=== PATIENT | female | born 1945 | race Caucasian/White ===

== ENCOUNTER → 2016-12-22 | Outpatient (CLI) | payer MEDICARE, BC ==
[2016-12-22 20:21] LABS: Hemoglobin A1C 7.3 % (4.2-6.1)
== END ==
LOC: LABWHC1 13:44
PROVIDERS: ATTEND Internal Medicine Endocrinology, Diabetes & Metabolism
DX: E03.9 Hypothyroidism, unspecified (principal); E11.65 Type 2 diabetes mellitus with hyperglycemia; E78.5 Hyperlipidemia, unspecified; E55.9 Vitamin D deficiency, unspecified; M81.8 Other osteoporosis without current pathological fracture
CPT/HCPCS: 36415; 82043; 82306; 83036; 84439; 84443

== ENCOUNTER → 2017-05-05 | Outpatient (CLI) | payer MEDICARE, BC ==
--- NOTE | 2017-05-05 15:27 | NM ---
EXAMINATION TYPE: NM DatScan Brain SPECT DATE OF EXAM: 05/05/2017 COMPARISON: NONE HISTORY: Parkinson's disease TECHNIQUE: 10 drops of Lugol's solution was administered 1 hour prior to injection as a thyroid bloc el agent. After the administration of 4.5 mCi I-123 Ioflupane DaTscan. Images obtained [address] injection. SPECT images of the brain were acquired with axial and coronal reconstructions. FINDINGS: The axial SPECT images demonstrate increased background activity and reduced activity withi n the bilateral striata greater on the right. IMPRESSION: Abnormal appearance highly suggestive of idiopathic Parkinson's disease or Parkinsonian s yndrome.
== END | disposition home or self-care (01) ==
LOC: RADNMMAIN 09:45
PROVIDERS: ATTEND Psychiatry & Neurology Neurology
DX: R90.89 Other abnormal findings on diagnostic imaging of central nervous system (principal); G20 Parkinson's disease
CPT/HCPCS: 78607; A9584

== ENCOUNTER 2018-07-01 14:06 | Emergency (ER) | payer MEDICARE, BC ==
[2018-07-01 14:15] VITALS: PULSE 64; TEMP 97.7
[2018-07-01] MEDS ORDERED: LIDOCAINE 1% INJ 10MG/ML (20 ML MDV) SQ ONE (15:09)
[2018-07-01] MEDS ORDERED: DIPH,PERTUS(ACELL)TETVAC-LF 0.5 ML VIAL IM ONE (15:21)
--- NOTE | 2018-07-01 15:47 | CT ---
EXAMINATION TYPE: CT brain deb gonzalez DATE OF EXAM: 07/01/2018 COMPARISON: 07/24/2016 HISTORY: Fall today. CT DLP: 1088.[address] of the brain was performed. The ventricles, basal cisterns and sulci overlying the cerebral convexities demonstrate mild enlargem ent. There is no evidence for intracranial hemorrhage or sulcal effacement. There is decreased attenuatio n about the periventricular white matter and deep white matter of both cerebral hemispheres, compatib le with chronic small vessel ischemia. No mass effects are seen. If symptoms persist consider MRI. Osseous calvarium is intact. IMPRESSION: 1. Age related atrophic and chronic small vessel ischemic change without acute intracranial process seen at this time. CT Cervical Spine: Unenhanced CT of the cervical spine was performed with bone and soft tissue window settings submitted . Coronal and sagittal reconstruction is obtained. There is normal alignment and prevertebral soft tissues. No evidence for acute cervical fracture . Scattered degenerative disc disease and spondylosis. Biapical scarring. Pleural effusions partially imaged. IMPRESSION: 1. No evidence for acute fracture or subluxation of the cervical spine.
--- NOTE | 2018-07-01 16:29 | XR ---
EXAMINATION TYPE: XR shoulder complete RT, XR humerus RT DATE OF EXAM: 07/01/2018 CLINICAL HISTORY: pain TECHNIQUE: Three views of the right shoulder and 2 views of the right humerus are submitted. Are obt ained. COMPARISON: 08/13/2015 FINDINGS: There is a chronic fracture noted to involve the right humeral neck with cranial migration of the distal fracture component and the rotatory component of the humeral head. In addition there is healed fracture involving the middle one third of the right humeral diaphysis. No acute fractures ar e present at this time. There is evidence of AC joint arthropathy. IMPRESSION: 1. Chronic fractures of the humeral neck/head as well as the middle one third of the diaphysis. Defin ite acute fracture is not believed to be present.
--- NOTE | 2018-07-01 16:31 | XR ---
EXAMINATION TYPE: XR tibia fibula RT DATE OF EXAM: 07/01/2018 CLINICAL HISTORY: pain TECHNIQUE: AP and lateral images of the right tibia and fibula are obtained. COMPARISON: None. FINDINGS: There is no acute fracture/dislocation evident. The joint spaces appear within normal frausto its. Soft tissue laceration noted laterally without evidence for radiopaque foreign body. IMPRESSION: There is no acute fracture or dislocation seen. ICD 10 NO FRACTURE, INITIAL EVALUATION
--- NOTE | 2018-07-01 16:36 | ED ---
Wound/Laceration HPI - General Chief Complaint: Wound/Laceration Stated Complaint: Fall Time Seen by Provider: 07/01/18 14:27 Source: patient Mode of arrival: EMS Limitations: no limitations - History of Present Illness Initial Comments: 73-year-old female past medical history of atrial fibrillation on eliquis, hypertension, Parkinson's presenting today for chief complaint of fall. Patient states that she often falls due to lack of balance from Parkinsons, today she stated she went to stand from seated, lost balance with first step falling forward. Pt denies any dizziness, chest pain, palpitations, prior to falling. Her son who wittnessed the fall stated she fell forward with right arm tucked under her body onto the carpeting, he states she doesn't think she hit her head but she could have on the carpeting. Pt is also unsure if she hit her head, denies LOC. Pt hit her right gao on the coffee table when falling lacerating her skin. Pt admits to some right shoulder pain, as well as at location of laceration. Pt was able to weight bear following accident and was brought to ER via EMS. Pt denies back pain, chest pain, shortness of breath, neck pain, headache, dizziness, visual changes, muscle weakness, hip/ankle/knee/ left UE pain. Pt did state that she had b/l shoulder/arm fractures from recent previous fall. Upon arrival to the ER pt appears well. C-collar in place, pt placed on telemetry. VS within acceptable limits. - Related Data Home Medications Medication Instructions Recorded Confirmed Metoprolol Tartrate [Lopressor] 50 mg PO BID 08/18/15 07/01/18 Carbidopa-Levodopa 25-100 mg 1 tab PO TID 01/15/16 07/01/18 [Sinemet 25-100 mg] Teriparatide [Forteo] 20 mcg SQ DAILY 03/04/17 07/01/18 Atorvastatin [Lipitor] 10 mg PO HS 04/28/18 07/01/18 Levothyroxine Sodium 137 mcg PO DAILY 04/28/18 07/01/18 Multivitamins, Thera [Multivitamin 1 tab PO DAILY 04/28/18 07/01/18 (formulary)] Tolterodine ER [Detrol LA] 4 mg PO HS 04/28/18 07/01/18 ALPRAZolam [Xanax] 0.25 mg PO TID PRN 07/01/18 07/01/18 Ammonium Lactate Cream [Lac-Hydrin 1 applic TOPICAL BID 07/01/18 07/01/18 12% Cream] Insulin Aspart [NovoLOG See Protocol SQ DAILY 07/01/18 07/01/18 (formulary)] Melatonin 5 mg PO HS PRN 07/01/18 07/01/18 Temazepam [Restoril] 30 mg PO HS PRN 07/01/18 07/01/18 oxyCODONE-APAP 7.5-325MG [Percocet 1 tab PO DAILY PRN 07/01/18 07/01/18 7.5-325 mg] Previous Rx's Medication Instructions Recorded Clindamycin [Cleocin] 450 mg PO Q8H 7 Days #21 capsule 07/01/18 Allergies Allergy/AdvReac Type Severity Reaction Status Date / Time cefdinir Allergy Severe Swelling Verified 07/01/18 15:53 Cephalosporins Allergy Unknown Verified 07/01/18 15:53 doxycycline Allergy Nausea & Verified 07/01/18 15:53 Vomiting erythromycin base Allergy Nausea & Verified 07/01/18 15:53 Vomiting & Diarrhea/RASH Penicillins Allergy Rash/Hives Verified 07/01/18 15:53 azithromycin AdvReac Nausea & Verified 07/01/18 15:53 Vomiting codeine AdvReac Unknown Verified 07/01/18 15:53 hydrochlorothiazide AdvReac Nausea & Verified 07/01/18 15:53 [From Dyazide] Vomiting levofloxacin [From Levaquin] AdvReac Abdominal Verified 07/01/18 15:53 Pain moxifloxacin HCl AdvReac Unknown Verified 07/01/18 15:53 [From Avelox] sulfamethoxazole AdvReac Nausea & Verified 07/01/18 15:53 [From Bactrim] Vomiting & Diarrhea triamterene [From Dyazide] AdvReac Nausea & Verified 07/01/18 15:53 Vomiting trimethoprim [From Bactrim] AdvReac Unknown Verified 07/01/18 15:53 Review of Systems ROS Statement: Those systems with pertinent positive or pertinent negative responses have been documented in the HPI. ROS Other: All systems not noted in ROS Statement are negative. Constitutional: Denies: fever, chills, night sweats Eyes: Denies: eye pain, vision change ENT: Denies: ear pain, throat pain Respiratory: Denies: cough, dyspnea, wheezes, hemoptysis, stridor Cardiovascular: Denies: chest pain, palpitations, dyspnea on exertion Gastrointestinal: Denies: abdominal pain, nausea, vomiting, diarrhea, constipation, hematemesis Genitourinary: Denies: urgency, dysuria, frequency, hematuria Musculoskeletal: Denies: back pain, joint swelling, arthralgia Skin: Reports: as per HPI (9cm laceration right anterior gao), lesions Neurological: Denies: headache, weakness, numbness, paresthesias, confusion, abnormal gait Past Medical History Past Medical History: Atrial Fibrillation, Asthma, Cancer, Heart Failure, COPD, CVA/TIA, Diabetes Mellitus, GERD/Reflux, Hypertension, Renal Disease, Respiratory Disorder, Thyroid Disorder Additional Past Medical History / Comment(s): HX OF CANCER OF LIP. HX SARCOIDOSIS, insulin pump, "stroke left eye". PNEUMONIA. History of Any Multi-Drug Resistant Organisms: MRSA Date of last positivie culture/infection: UNKNOWN. MDRO Source:: URIN Past Surgical History: Appendectomy, Breast Surgery, Section, Cholecystectomy, Hysterectomy, Orthopedic Surgery Additional Past Surgical History / Comment(s): tongue left side biopsy aug 2014 , epidural injections. #right shoulder&and right elbow. Past Anesthesia/Blood Transfusion Reactions: No Reported Reaction Additional Past Anesthesia/Blood Transfusion Reaction / Comment(s): CLAUSTERPHOBIA Past Psychological History: Anxiety Smoking Status: Never smoker Past Alcohol Use History: None Reported Past Drug Use History: None Reported - Past Family History Father Family Medical History: Cancer, Prostate Disorder Additional Family Medical History / Comment(s): PROSTATE CA, HERNIA SX BACK SX Mother Family Medical History: Cancer Additional Family Medical History / Comment(s): Mother is . Mother had lung cancer. She was a smoker. General Exam - General Exam Comments Initial Comments: General: The patient is awake and alert, in no distress, and does not appear acutely ill. Eye: +3 pupils are equal, round and reactive to light, extra-ocular movements are intact. No nystagmus. There is normal conjunctiva bilaterally. No signs of icterus. Ears, nose, mouth and throat: There are moist mucous membranes and no oral lesions. Neck: The neck is supple, there is no tenderness or JVD. No midline or paravertebral tenderness to palpation of the cervical spine. Patient is able to fully range the C-spine with flexion, extension, lateral flexion and rotation. Cardiovascular: There is a regular rate and rhythm. No murmur, rub or gallop is appreciated. Respiratory: Lungs are clear to auscultation, respirations are non-labored, breath sounds are equal. No wheezes, stridor, rales, or rhonchi. Breath sounds audible in all lung douglas. Gastrointestinal: Soft, non-distended, non-tender abdomen without masses or organomegaly noted. There is no rebound or guarding present. Bowel sounds are unremarkable. Musculoskeletal: No pain to palpation of the sternum or scapula. No pain to percussion of the shoulders. Patient does admit to some tenderness over the humerus stating that these are her old fractures. Normal ROM at the shoulder, elbows and wrists b/l, no tenderness. Strength 5/5 of the UE and LE equally b/ l. Sensation intact of the UE and LE equally b/l. Radial pulses equal bilaterally 2+. Neurological: A&O x 3. CN II-XII intact, There are no obvious motor or sensory deficits. Coordination appears grossly intact. Speech is normal. Skin: Skin is warm and dry and no rashes. 9cm laceration of the right anterior gao with skin tear and ecchymosis. Psychiatric: Cooperative, appropriate mood & affect, normal judgment. Limitations: no limitations Course Vital Signs 07/01/18 07/01/18 07/01/18 14:09 15:00 15:30 Temperature 97.7 F Pulse Rate 64 64 64 Respiratory 16 18 14 Rate Blood Pressure 170/71 161/72 169/87 O2 Sat by Pulse 95 97 96 Oximetry 07/01/18 07/01/18 07/01/18 16:00 16:30 18:00 Temperature Pulse Rate 63 64 Respiratory 10 L 10 L Rate Blood Pressure 191/83 173/78 169/114 O2 Sat by Pulse 85 L 95 Oximetry Procedures - Laceration Laceration #1 Consent Obtained: verbal consent Time Out Performed: Yes Indication: laceration Site: lower extremity (right anterior gao) Size (cm): 9 Description: irregular (with skin tear), clean Depth: simple, single layer Anesthetic Used: lidocaine 1% Anesthesia Technique: local infiltration Amount (mls): 12 Pre-repair: wound explored, irrigated extensively, deep structures intact Type of Sutures: nylon Size of Sutures: 4-0 Number of Sutures: 13 Technique: simple, interrupted Complications: bleeding (minor bleeding) Patient Tolerated Procedure: well Additional Comments: Pt skin very thin, tearing was complication of procedure. Wound edges approximated as closely as possible. There is some tension on the skin of the area. A pressure dressing was applied following wound repair to obtain hemestasis. Medical Decision Making - Medical Decision Making 73yo female with cc of mechanical fall. CT (-) Imaging of right UE (-) revealed no acute fractures. Pt able to fully weight bear denying pain with ROM of the LE /back. Laceration repaired, experienced complication of skin tearing and mild bleeding. Pt tolerated procedure well. Given pt history of DM pt was started on antibiotics for infection ppx. Pt was educated on the importance of f/u for wound check as there is risk of delayed wound healing with history of DM/and venous insufficiency. Pt verbalized understanding. Return parameters discussed in detail patient. Case discussed with Dr. Rivera who at this time feels pt is stable for d/c with primary care f/u and f/u in 7-10 days for suture removal. Signs and symptoms of infection discussed in detail. Patient discharged in stable condition. Disposition Clinical Impression: Laceration of right lower leg without complication, Fall Disposition: HOME SELF-CARE Condition: Good Instructions: Care For Your Stitches (ED), Laceration (ED), Fall Prevention (ED ) Additional Instructions: Please use home medications as discussed. Please follow-up with family doctor in the next 2 days. Please follow up here for suture removal in 7-10 days. Please return to emergency room if the symptoms increase or worsen or for any other concerns. Prescriptions: Clindamycin [Cleocin] 450 mg PO Q8H 7 Days #21 capsule Is patient prescribed a controlled substance at d/c from ED?: No Referrals: Maximus Odonnell III, MD [Primary Care Provider] - 1-2 days Time of Disposition: 18:00
[2018-07-01 18:24] VITALS: BP 169/114; RESP 10
--- NOTE | 2018-07-04 12:29 | XR ---
EXAMINATION TYPE: XR chest 2V DATE OF EXAM: 07/01/2018 COMPARISON: Prior chest x-ray 05/03/2018 HISTORY: Pain, trauma TECHNIQUE: Frontal and lateral views of the chest are obtained. FINDINGS: The heart size is stable. Interstitium is increased, perihilar vascular indistinctness is noted. Old trauma present to the proximal humeri. Arthropathy changes are present. There is no pneumo thorax or pleural effusion. There are overlying cardiac leads. Lung volumes are low. IMPRESSION: Correlate for possible pulmonary venous hypertension and interstitial edema, follow-up r ecommended.
== END 2018-07-01 18:25 | disposition home or self-care (01) ==
LOC: EC 14:06
DX: S81.811A Laceration without foreign body, right lower leg, initial encounter (principal); M25.511 Pain in right shoulder; R29.6 Repeated falls; I48.91 Unspecified atrial fibrillation; E11.9 Type 2 diabetes mellitus without complications; E07.9 Disorder of thyroid, unspecified; I11.0 Hypertensive heart disease with heart failure; I50.9 Heart failure, unspecified; G20 Parkinson's disease; Z88.0 Allergy status to penicillin; Z88.1 Allergy status to other antibiotic agents; Z88.2 Allergy status to sulfonamides; Z88.5 Allergy status to narcotic agent; Z88.8 Allergy status to other drugs, medicaments and biological substances; Z79.01 Long term (current) use of anticoagulants; Z79.4 Long term (current) use of insulin; Z79.899 Other long term (current) drug therapy; Z87.81 Personal history of (healed) traumatic fracture; Z98.890 Other specified postprocedural states; Z53.20 Procedure and treatment not carried out because of patient's decision for unspecified reasons; W01.190A Fall on same level from slipping, tripping and stumbling with subsequent striking against furniture, initial encounter; Y93.89 Activity, other specified; Y92.009 Unspecified place in unspecified non-institutional (private) residence as the place of occurrence of the external cause
CPT/HCPCS: 73030; 73060; 73590; 71046; 72125; 70450; 99284; 12004; J2001

== ENCOUNTER 2018-07-05 22:49 | Emergency (ER) | payer MEDICARE, BC ==
[2018-07-05] MEDS ORDERED: SODIUM CHLORIDE 0.9% 1,000 ML IV ONE (23:05)
--- NOTE | 2018-07-05 23:05 | ED ---
Altered Mental Status HPI - General Chief Complaint: Altered Mental Status Stated Complaint: Altered Mental Status Time Seen by Provider: 07/05/18 23:04 Source: patient, EMS Mode of arrival: EMS Limitations: altered mental status - History of Present Illness Initial Comments: Jm is a 73-year-old female with past medical history documented below who is brought to the ED today via EMS for evaluation of transient episode of confusion. Patient reports that she is feeling well and she's not certain why she came here. States that she got ready for bed, she took one of her Percocet and then she was talking to her , he was concerned that she was confused so he called 911. arrived at bedside, he states that the patient was in her usual state of health throughout the day. He states that this evening she was getting ready for bed. She wanted the restroom which is her usual. She was then sitting at the table and he noted that she was very sleepy, she appeared to be nodding off, when he tried to talk to her she seemed confused. He reports she' s had episodes like this in the past been in the past they've lasted days to weeks. He reports he then went to the restroom to see if he could find if the patient IV medications. He can't empty Percocet bottle. He is uncertain when she was prescribed these her how many she took tonight. He then decided to call 911 due to concern of ingestion. Upon arrival the patient is awake, alert, oriented, she states that she did in fact take her normal anxiety medications as well as one Percocet. She was prescribed Percocet approximately a month ago. There are her Percocet. She reports she took only one. She states that she took a due to pain in her leg from a laceration she obtained on Wednesday. Patient denies any additional complaints. - Related Data Home Medications Medication Instructions Recorded Confirmed Metoprolol Tartrate [Lopressor] 50 mg PO BID 08/18/15 07/05/18 Carbidopa-Levodopa 25-100 mg 1 tab PO TID 01/15/16 07/05/18 [Sinemet 25-100 mg] Teriparatide [Forteo] 20 mcg SQ DAILY 03/04/17 07/05/18 Atorvastatin [Lipitor] 10 mg PO HS 04/28/18 07/05/18 Levothyroxine Sodium 137 mcg PO DAILY 04/28/18 07/05/18 Multivitamins, Thera [Multivitamin 1 tab PO DAILY 04/28/18 07/05/18 (formulary)] Tolterodine ER [Detrol LA] 4 mg PO HS 04/28/18 07/05/18 ALPRAZolam [Xanax] 0.25 mg PO TID PRN 07/01/18 07/05/18 Ammonium Lactate Cream [Lac-Hydrin 1 applic TOPICAL BID 07/01/18 07/05/18 12% Cream] Insulin Aspart [NovoLOG See Protocol SQ DAILY 07/01/18 07/05/18 (formulary)] Melatonin 5 mg PO HS PRN 07/01/18 07/05/18 Temazepam [Restoril] 30 mg PO HS PRN 07/01/18 07/05/18 oxyCODONE-APAP 7.5-325MG [Percocet 1 tab PO DAILY PRN 07/01/18 07/05/18 7.5-325 mg] Previous Rx's Medication Instructions Recorded Clindamycin [Cleocin] 450 mg PO Q8H 7 Days #21 capsule 07/01/18 Allergies Allergy/AdvReac Type Severity Reaction Status Date / Time cefdinir Allergy Severe Swelling Verified 07/05/18 23:17 Cephalosporins Allergy Unknown Verified 07/05/18 23:17 doxycycline Allergy Nausea & Verified 07/05/18 23:17 Vomiting erythromycin base Allergy Nausea & Verified 07/05/18 23:17 Vomiting & Diarrhea/RASH Penicillins Allergy Rash/Hives Verified 07/05/18 23:17 azithromycin AdvReac Nausea & Verified 07/05/18 23:17 Vomiting codeine AdvReac Unknown Verified 07/05/18 23:17 hydrochlorothiazide AdvReac Nausea & Verified 07/05/18 23:17 [From Dyazide] Vomiting levofloxacin [From Levaquin] AdvReac Abdominal Verified 07/05/18 23:17 Pain moxifloxacin HCl AdvReac Unknown Verified 07/05/18 23:17 [From Avelox] sulfamethoxazole AdvReac Nausea & Verified 07/05/18 23:17 [From Bactrim] Vomiting & Diarrhea triamterene [From Dyazide] AdvReac Nausea & Verified 07/05/18 23:17 Vomiting trimethoprim [From Bactrim] AdvReac Unknown Verified 07/05/18 23:17 Review of Systems ROS Statement: Those systems with pertinent positive or pertinent negative responses have been documented in the HPI. ROS Other: All systems not noted in ROS Statement are negative. Past Medical History Past Medical History: Atrial Fibrillation, Asthma, Cancer, Heart Failure, COPD, CVA/TIA, Diabetes Mellitus, GERD/Reflux, Hypertension, Renal Disease, Respiratory Disorder, Thyroid Disorder Additional Past Medical History / Comment(s): HX OF CANCER OF LIP. HX SARCOIDOSIS, insulin pump, "stroke left eye". PNEUMONIA. History of Any Multi-Drug Resistant Organisms: MRSA Date of last positivie culture/infection: UNKNOWN. MDRO Source:: URIN Past Surgical History: Appendectomy, Breast Surgery, Section, Cholecystectomy, Hysterectomy, Orthopedic Surgery Additional Past Surgical History / Comment(s): tongue left side biopsy aug 2014 , epidural injections. #right shoulder&and right elbow. Past Anesthesia/Blood Transfusion Reactions: No Reported Reaction Additional Past Anesthesia/Blood Transfusion Reaction / Comment(s): CLAUSTERPHOBIA Past Psychological History: Anxiety Smoking Status: Never smoker Past Alcohol Use History: None Reported Past Drug Use History: None Reported - Past Family History Father Family Medical History: Cancer, Prostate Disorder Additional Family Medical History / Comment(s): PROSTATE CA, HERNIA SX BACK SX Mother Family Medical History: Cancer Additional Family Medical History / Comment(s): Mother is . Mother had lung cancer. She was a smoker. General Exam - General Exam Comments Initial Comments: Physical Exam GENERAL: Patient is well-developed and well-nourished. Patient is nontoxic and well-hydrated and is in no distress. HENT: Normocephalic, Atraumatic. EYES: PERRL, EOMI PULMONARY: Unlabored respirations. No audible rales rhonchi or wheezing was noted. CARDIOVASCULAR: There is a regular rate and rhythm without any murmurs gallops or rubs. ABDOMEN: Soft and nontender with normal bowel sounds. SKIN: There is a large skin tear on the right lower extremity, this is been repaired with sutures, there is a loose approximation of the skin, no signs of infection. : Deferred NEUROLOGIC: Patient is alert and oriented x3. Moving all extremities spontaneously MUSCULOSKELETAL: Edema of the bilateral lower extremities, PSYCHIATRIC: Normal psychiatric evaluation. Limitations: no limitations Limitations: altered mental status Course Vital Signs 07/05/18 22:52 Temperature 98.4 F Pulse Rate 67 Respiratory 18 Rate Blood Pressure 129/59 O2 Sat by Pulse 94 L Oximetry Medical Decision Making - Medical Decision Making The patient was seen and evaluated, history was obtained from the patient, patient's , EMS Patient both report concern for Percocet ingestion, patient reports she took only one but took along with her normal benzodiazepine medication. does admit that the patient is now much more awake alert and oriented. Reports that she is at her baseline upon arrival to the ER. The patient did not receive any Narcan in route to the hospital Labs and imaging were ordered, considering the Percocet does have Tylenol in the I will order a Tylenol level Labs at the patient's baseline, chronic anemia Acetaminophen level is 11, this indicates the patient did not ingest a significant amount of Percocet Patient has remained awake, alert, oriented though sleepy throughout her ED stay. She states she like to go home and go to bed as it is now 2 AM. Results were discussed with the patient and . I offered observation for further monitoring of the patient's condition versus discharge home. Patient would prefer discharge home. is in agreement with this. Current parameters were discussed, all questions pertaining to care were answered to the best of my ability and the patient was discharged home in stable condition. - Lab Data Result diagrams: 07/05/18 23:00 07/05/18 23:00 Lab Results 07/05/18 07/05/18 07/05/18 Range/Units 23:00 23:00 23:00 WBC 4.7 (3.8-10.6) k/uL RBC 2.89 L (3.80-5.40) m/uL Hgb 9.9 L (11.4-16.0) gm/dL Hct 29.8 L (34.0-46.0) % MCV 103.3 H (80.0-100.0) fL MCH 34.4 (25.0-35.0) pg MCHC 33.3 (31.0-37.0) g/dL RDW 13.7 (11.5-15.5) % Plt Count 141 L (150-450) k/uL Neutrophils % 74 % Lymphocytes % 15 % Monocytes % 6 % Eosinophils % 2 % Basophils % 0 % Neutrophils # 3.5 (1.3-7.7) k/uL Lymphocytes # 0.7 L (1.0-4.8) k/uL Monocytes # 0.3 (0-1.0) k/uL Eosinophils # 0.1 (0-0.7) k/uL Basophils # 0.0 (0-0.2) k/uL Macrocytosis Slight PT (9.0-12.0) sec INR (<1.2) APTT (22.0-30.0) sec Sodium 133 L (137-145) mmol/L Potassium 4.0 (3.5-5.1) mmol/L Chloride 100 (98-107) mmol/L Carbon Dioxide 30 (22-30) mmol/L Anion Gap 3 mmol/L BUN 13 (7-17) mg/dL Creatinine 0.51 L (0.52-1.04) mg/dL Est GFR (CKD-EPI)AfAm >90 (>60 ml/min/1.73 sqM) Est GFR (CKD-EPI)NonAf >90 (>60 ml/min/1.73 sqM) Glucose 149 H (74-99) mg/dL POC Glucose (mg/dL) (75-99) mg/dL POC Glu Food Aide ID Calcium 8.7 (8.4-10.2) mg/dL Total Bilirubin 0.9 (0.2-1.3) mg/dL AST 24 (14-36) U/L ALT 16 (9-52) U/L Alkaline Phosphatase 82 (38-126) U/L Total Creatine Kinase 21 L (30-135) U/L CK-MB (CK-2) 0.6 (0.0-2.4) ng/mL CK-MB (CK-2) Rel Index 2.9 Troponin I <0.012 (0.000-0.034) ng/mL Total Protein 5.4 L (6.3-8.2) g/dL Albumin 2.7 L (3.5-5.0) g/dL Salicylates <1.0 mg/dL Acetaminophen 11.9 ug/mL Serum Alcohol <10 mg/dL 07/05/18 07/05/18 Range/Units 23:00 23:13 WBC (3.8-10.6) k/uL RBC (3.80-5.40) m/uL Hgb (11.4-16.0) gm/dL Hct (34.0-46.0) % MCV (80.0-100.0) fL MCH (25.0-35.0) pg MCHC (31.0-37.0) g/dL RDW (11.5-15.5) % Plt Count (150-450) k/uL Neutrophils % % Lymphocytes % % Monocytes % % Eosinophils % % Basophils % % Neutrophils # (1.3-7.7) k/uL Lymphocytes # (1.0-4.8) k/uL Monocytes # (0-1.0) k/uL Eosinophils # (0-0.7) k/uL Basophils # (0-0.2) k/uL Macrocytosis PT 12.8 H (9.0-12.0) sec INR 1.4 H (<1.2) APTT 28.8 (22.0-30.0) sec Sodium (137-145) mmol/L Potassium (3.5-5.1) mmol/L Chloride (98-107) mmol/L Carbon Dioxide (22-30) mmol/L Anion Gap mmol/L BUN (7-17) mg/dL Creatinine (0.52-1.04) mg/dL Est GFR (CKD-EPI)AfAm (>60 ml/min/1.73 sqM) Est GFR (CKD-EPI)NonAf (>60 ml/min/1.73 sqM) Glucose (74-99) mg/dL POC Glucose (mg/dL) 181 H (75-99) mg/dL POC Glu Food Aide ID Dorothea Boyer Calcium (8.4-10.2) mg/dL Total Bilirubin (0.2-1.3) mg/dL AST (14-36) U/L ALT (9-52) U/L Alkaline Phosphatase (38-126) U/L Total Creatine Kinase (30-135) U/L CK-MB (CK-2) (0.0-2.4) ng/mL CK-MB (CK-2) Rel Index Troponin I (0.000-0.034) ng/mL Total Protein (6.3-8.2) g/dL Albumin (3.5-5.0) g/dL Salicylates mg/dL Acetaminophen ug/mL Serum Alcohol mg/dL - EKG Data EKG Comments: Rhythm is sinus, as noted be a bifascicular block, MS interval 186, QRS is 142, QTc is prolonged at 516. There are no acute ST elevations or depressions. When compared to EKG of April of this year there are no significant changes in morphology. Disposition Clinical Impression: Confusion Disposition: HOME SELF-CARE Condition: Good Instructions: Altered Mental Status (ED) Is patient prescribed a controlled substance at d/c from ED?: No Referrals: Maximus Odonnell III, MD [Primary Care Provider] - 1-2 days
[2018-07-05 23:15] LABS: Glucose,Whole Blood 181 mg/dL (75-99)
[2018-07-05 23:26] LABS: Basophils % (A) 0 %; Eosinophils # (A) 0.1 k/uL (0-0.7); Eosinophils % (A) 2 %; HCT 29.8 % (34.0-46.0); HGB 9.9 gm/dL (11.4-16.0); Lymphocytes # (A) 0.7 k/uL (1.0-4.8); Lymphocytes % (A) 15 %; MCH 34.4 pg (25.0-35.0); MCHC 33.3 g/dL (31.0-37.0); MCV 103.3 fL (80.0-100.0); Macrocytosis Slight; Mean Platelet Volume 7.3; Monocytes # (A) 0.3 k/uL (0-1.0); Monocytes % (A) 6 %; Neutrophils # (A) 3.5 k/uL (1.3-7.7); Neutrophils % (A) 74 %; Platelet Count 141 k/uL (150-450); RBC 2.89 m/uL (3.80-5.40); RDW 13.7 % (11.5-15.5); WBC 4.7 k/uL (3.8-10.6)
[2018-07-05 23:36] LABS: ALT 16 U/L (9-52); AST 24 U/L (14-36); Acetaminophen 11.9 ug/mL; Albumin 2.7 g/dL (3.5-5.0); Alcohol <10 mg/dL; Alkaline Phosphatase 82 U/L (38-126); Anion Gap 3 mmol/L; Blood Urea Nitrogen 13 mg/dL (7-17); Calcium 8.7 mg/dL (8.4-10.2); Carbon Dioxide 30 mmol/L (22-30); Chloride 100 mmol/L (98-107); Glucose 149 mg/dL (74-99); Salicylate <1.0 mg/dL; Sodium 133 mmol/L (137-145); Total Bilirubin 0.9 mg/dL (0.2-1.3); Total Protein 5.4 g/dL (6.3-8.2)
[2018-07-05 23:40] LABS: INR 1.4 (<1.2); Partial Thromboplastin Time 28.8 sec (22.0-30.0); Prothrombin Time 12.8 sec (9.0-12.0)
[2018-07-05 23:46] LABS: Creatine Kinase 21 U/L (30-135)
--- NOTE | 2018-07-05 23:54 | XR ---
EXAMINATION TYPE: XR chest 2V DATE OF EXAM: 07/05/2018 COMPARISON: 07/01/2018 HISTORY: Altered mental status TECHNIQUE: Frontal and lateral views of the chest are obtained. FINDINGS: There is diffuse pulmonary interstitial edema. Heart is enlarged. There is some blunting o f the costophrenic angles with fluid in the fissures. There are chest leads. Thoracic aorta is athero matous. IMPRESSION: Congestive heart failure. Pulmonary interstitial edema. Pleural effusions. There is prob ably also some pneumonia left lower lobe. Chest is slightly worse than last exam.
[2018-07-06] LABS: Creatine Kinase MB 0.6 ng/mL (0.0-2.4); Troponin I <0.012 ng/mL (0.000-0.034)
[2018-07-06 03:20] VITALS: BP 149/71; PULSE 64; RESP 17; TEMP 97.9
== END 2018-07-06 02:15 | disposition home or self-care (01) ==
LOC: EC 22:49
DX: R41.0 Disorientation, unspecified (principal); D64.9 Anemia, unspecified; I48.91 Unspecified atrial fibrillation; I11.0 Hypertensive heart disease with heart failure; I50.9 Heart failure, unspecified; E11.9 Type 2 diabetes mellitus without complications; E07.9 Disorder of thyroid, unspecified; F41.9 Anxiety disorder, unspecified; Z86.73 Personal history of transient ischemic attack (TIA), and cerebral infarction without residual deficits; Z86.14 Personal history of Methicillin resistant Staphylococcus aureus infection; Z85.819 Personal history of malignant neoplasm of unspecified site of lip, oral cavity, and pharynx; Z79.4 Long term (current) use of insulin; Z79.899 Other long term (current) drug therapy; Z88.0 Allergy status to penicillin; Z88.1 Allergy status to other antibiotic agents; Z88.2 Allergy status to sulfonamides; Z88.5 Allergy status to narcotic agent; Z88.8 Allergy status to other drugs, medicaments and biological substances
CPT/HCPCS: 36415; 93005; 80053; 82550; 82553; 84484; 85025; 85610; 85730; 83520 ×2; 71046; 99285; 96360; G0480; 80320

== ENCOUNTER 2018-08-09 01:40 | Inpatient (IN) | payer MEDICARE, BC ==
[2018-08-09] MEDS ORDERED: SODIUM CHLORIDE 0.9% 500 ML 500 ML IV STA (03:06)
[2018-08-09 03:28] LABS: Basophils % (A) 0 %; Eosinophils # (A) 0.1 k/uL (0-0.7); Eosinophils % (A) 1 %; HCT 35.6 % (34.0-46.0); HGB 12.2 gm/dL (11.4-16.0); Lymphocytes # (A) 0.9 k/uL (1.0-4.8); Lymphocytes % (A) 12 %; MCH 33.8 pg (25.0-35.0); MCHC 34.2 g/dL (31.0-37.0); MCV 98.9 fL (80.0-100.0); Mean Platelet Volume 8.1; Monocytes # (A) 0.6 k/uL (0-1.0); Monocytes % (A) 8 %; Neutrophils # (A) 5.7 k/uL (1.3-7.7); Neutrophils % (A) 76 %; Platelet Count 235 k/uL (150-450); RDW 13.6 % (11.5-15.5); WBC 7.4 k/uL (3.8-10.6)
[2018-08-09 03:47] LABS: ALT 32 U/L (9-52); AST 47 U/L (14-36); Albumin 3.5 g/dL (3.5-5.0); Alkaline Phosphatase 107 U/L (38-126); Anion Gap 9 mmol/L; Blood Urea Nitrogen 11 mg/dL (7-17); Calcium 8.9 mg/dL (8.4-10.2); Carbon Dioxide 26 mmol/L (22-30); Chloride 86 mmol/L (98-107); Glucose 163 mg/dL (74-99); Potassium 3.8 mmol/L (3.5-5.1); Sodium 121 mmol/L (137-145); Total Bilirubin 1.7 mg/dL (0.2-1.3); Total Protein 6.7 g/dL (6.3-8.2)
--- NOTE | 2018-08-09 03:49 | XR ---
EXAMINATION TYPE: XR chest 2V DATE OF EXAM: 08/09/2018 COMPARISON: 07/05/2018 HISTORY: Weakness TECHNIQUE: Frontal and lateral views of the chest are obtained. FINDINGS: Heart is enlarged. There is pulmonary vascular congestion. There is blunting of the left c ostophrenic angle. There is fluid in the left major fissure. There are chest leads. There is old left humeral neck fracture. There is osteopenia. IMPRESSION: Congestive heart failure that is slightly worse than last exam. There is slight increase d left pleural effusion.
[2018-08-09 03:53] LABS: Amorphous Sediment,Urine Rare /hpf; Appearance,Urine Cloudy (Clear); Bilirubin,Urine Negative (Negative); Blood,Urine Trace (Negative); Color,Urine Yellow; Glucose,Urine (UA) Negative (Negative); Ketones,Urine Negative (Negative); Leukocyte Esterase,Urine Large (Negative); Mucus,Urine Rare /hpf; Nitrite,Urine Negative (Negative); Protein,Urine 1+ (Negative); RBC,Urine 2 /hpf (0-5); Specific Gravity,Urine 1.015 (1.001-1.035); Squamous Epithelial Cell,Urine 1 /hpf (0-4); WBC,Urine 15 /hpf (0-5)
[2018-08-09 04:02] LABS: Creatine Kinase MB 3.4 ng/mL (0.0-2.4); Troponin I 0.015 ng/mL (0.000-0.034)
--- NOTE | 2018-08-09 04:22 | CT ---
EXAMINATION TYPE: CT brain wo con DATE OF EXAM: 08/09/2018 COMPARISON: 07/01/2018 HISTORY: Multiple falls. Weakness. CT DLP: 2204.80 mGycm Automated exposure control for dose reduction was used. FINDINGS: There is some cerebral cortical atrophy. There is no mass effect nor midline shift. There is no sign of intracranial hemorrhage. The calvarium is intact. IMPRESSION: CEREBRAL ATROPHY. MILD CHRONIC SMALL VESSEL ISCHEMIA. NO ACUTE INTRACRANIAL ABNORMALITY. NO CHANGE.
--- NOTE | 2018-08-09 04:24 | ED ---
Fall HPI - General Source: patient, EMS Mode of arrival: EMS <Audra Fonseca - Last Filed: 08/09/18 04:39> <Kee Montanez - Last Filed: 08/09/18 08:15> - General Chief Complaint: Fall Stated Complaint: Fall Time Seen by Provider: 08/09/18 02:24 - History of Present Illness Initial Comments: 73-year-old female patient with past medical history significant for Atrial fibrillation, heart failure, COPD, diabetes, hypertension, and Parkinson's disease presents to the emergency department today for evaluation of frequent falls. is present and reports the patient has been falling physically over the last week or two. States that over the last 2 days she has fallen 5 times. Twice yesterday, and 3 times this evening. Patient denies hitting her head or losing consciousness during the falls. Denies any injuries during the falls. She states she is unsure why she has been falling. She denies any chest pain, shortness of breath, headache, blurred vision, double vision, dizziness, weakness, numbness, or tingling. Patient denies any recent rash, fever, chills, abdominal pain, nausea, vomiting, diarrhea, constipation, back pain, hematuria, dysuria, urinary urgency, urinary frequency, or any other complaints. (Audra Fonseca) - Related Data Home Medications Medication Instructions Recorded Confirmed Metoprolol Tartrate [Lopressor] 50 mg PO BID 08/18/15 08/09/18 Carbidopa-Levodopa 25-100 mg 1 tab PO TID 01/15/16 08/09/18 [Sinemet 25-100 mg] Levothyroxine Sodium 137 mcg PO DAILY 04/28/18 08/09/18 Multivitamins, Thera [Multivitamin 1 tab PO DAILY 04/28/18 08/09/18 (formulary)] ALPRAZolam [Xanax] 0.25 mg PO TID PRN 07/01/18 08/09/18 Acetaminophen [Tylenol 8 Hour] 650 mg PO Q8H 08/09/18 08/09/18 Albuterol Inhaler [Ventolin Hfa 2 puff INHALATION RT-Q4H PRN 08/09/18 08/09/18 Inhaler] Albuterol Nebulized [Ventolin 2.5 mg PO RT-TID 08/09/18 08/09/18 Nebulized] Amiodarone HCl [Pacerone] 200 mg PO DAILY 08/09/18 08/09/18 Calcium Carbonate 500 mg PO DAILY 08/09/18 08/09/18 Dabigatran [Pradaxa] 150 mg PO BID 08/09/18 08/09/18 Docusate [Colace] 100 mg PO BID PRN 08/09/18 08/09/18 Ergocalciferol [Vitamin D2] 50,000 unit PO ROSA 08/09/18 08/09/18 Ferrous Sulfate [Iron] 325 mg PO DAILY 08/09/18 08/09/18 Fluticasone/Salmeterol [Advair 1 inhalation PO RT-BID 08/09/18 08/09/18 500-50 Diskus] Insulin Aspart [NovoLOG Flexpen] 6 units SQ W/SUPPER 08/09/18 08/09/18 Lansoprazole 30 mg PO DAILY 08/09/18 08/09/18 Levocetirizine Dihydrochloride 5 mg PO HS 08/09/18 08/09/18 [Xyzal] Melatonin 3 mg PO HS PRN 08/09/18 08/09/18 Omalizumab [Xolair] 150 mg SQ QMONTH 08/09/18 08/09/18 Oxybutynin Chloride 5 mg PO HS 08/09/18 08/09/18 Primidone [Mysoline] 50 mg PO DAILY 08/09/18 08/09/18 Quinapril HCl [Accupril] 20 mg PO DAILY 08/09/18 08/09/18 Temazepam 30 mg PO HS PRN 08/09/18 08/09/18 Teriparatide [Forteo] 20 mcg SQ DAILY 08/09/18 08/09/18 Thiamine HCl [Vitamin B-1] 100 mg PO DAILY 08/09/18 08/09/18 Venlafaxine HCl ER [Effexor Xr] 75 mg PO DAILY 08/09/18 08/09/18 Vit C/E/Zn/Coppr/Lutein/Zeaxan 1 tab PO DAILY 08/09/18 08/09/18 [Preservision Areds 2 Softgel] Allergies Allergy/AdvReac Type Severity Reaction Status Date / Time cefdinir Allergy Severe Swelling Verified 08/09/18 06:44 Cephalosporins Allergy Unknown Verified 08/09/18 06:44 doxycycline Allergy Nausea & Verified 08/09/18 06:44 Vomiting erythromycin base Allergy Nausea & Verified 08/09/18 06:44 Vomiting & Diarrhea/RASH Penicillins Allergy Rash/Hives Verified 08/09/18 06:44 azithromycin AdvReac Nausea & Verified 08/09/18 06:44 Vomiting codeine AdvReac Unknown Verified 08/09/18 06:44 hydrochlorothiazide AdvReac Nausea & Verified 08/09/18 06:44 [From Dyazide] Vomiting levofloxacin [From Levaquin] AdvReac Abdominal Verified 08/09/18 06:44 Pain moxifloxacin HCl AdvReac Unknown Verified 08/09/18 06:44 [From Avelox] sulfamethoxazole AdvReac Nausea & Verified 08/09/18 06:44 [From Bactrim] Vomiting & Diarrhea triamterene [From Dyazide] AdvReac Nausea & Verified 08/09/18 06:44 Vomiting trimethoprim [From Bactrim] AdvReac Unknown Verified 08/09/18 06:44 Review of Systems ROS Other: All systems not noted in ROS Statement are negative. <Audra Fonseca - Last Filed: 08/09/18 04:39> ROS Other: All systems not noted in ROS Statement are negative. <Kee Montanez - Last Filed: 08/09/18 08:15> ROS Statement: Those systems with pertinent positive or pertinent negative responses have been documented in the HPI. Past Medical History Past Medical History: Atrial Fibrillation, Asthma, Cancer, Heart Failure, COPD, CVA/TIA, Diabetes Mellitus, GERD/Reflux, Hypertension, Renal Disease, Respiratory Disorder, Thyroid Disorder Additional Past Medical History / Comment(s): HX OF CANCER OF LIP. HX SARCOIDOSIS, insulin pump, "stroke left eye". PNEUMONIA. PARKINSON's disease History of Any Multi-Drug Resistant Organisms: MRSA Date of last positivie culture/infection: UNKNOWN. MDRO Source:: URIN Past Surgical History: Appendectomy, Breast Surgery, Section, Cholecystectomy, Hysterectomy, Orthopedic Surgery Additional Past Surgical History / Comment(s): tongue left side biopsy aug 2014 , epidural injections. #right shoulder&and right elbow. Past Anesthesia/Blood Transfusion Reactions: No Reported Reaction Additional Past Anesthesia/Blood Transfusion Reaction / Comment(s): CLAUSTERPHOBIA Past Psychological History: Anxiety Smoking Status: Never smoker Past Alcohol Use History: None Reported Past Drug Use History: None Reported - Past Family History Father Family Medical History: Cancer, Prostate Disorder Additional Family Medical History / Comment(s): PROSTATE CA, HERNIA SX BACK SX Mother Family Medical History: Cancer Additional Family Medical History / Comment(s): Mother is . Mother had lung cancer. She was a smoker. <Audra Fonseca M - Last Filed: 08/09/18 04:39> General Exam Limitations: no limitations General appearance: alert, in no apparent distress, other (This is a well- developed, well-nourished elderly female patient in no acute distress. Vital signs upon presentation are temperature 98.6F, pulse 61, respirations 18, blood pressure 227/94, pulse ox 91% on room air.) Head exam: Present: atraumatic, normocephalic, normal inspection Eye exam: Present: normal appearance, PERRL, EOMI. Absent: scleral icterus, conjunctival injection, periorbital swelling ENT exam: Present: normal exam, normal oropharynx, mucous membranes moist Neck exam: Present: normal inspection, full ROM, other (Nontender, no step-off, no deformity to firm midline palpation of the posterior cervical spine. Full range of motion without pain or limitation.). Absent: tenderness, meningismus, lymphadenopathy Respiratory exam: Present: normal lung sounds bilaterally. Absent: respiratory distress, wheezes, rales, rhonchi, stridor Cardiovascular Exam: Present: regular rate, normal rhythm, normal heart sounds. Absent: systolic murmur, diastolic murmur, rubs, gallop, clicks GI/Abdominal exam: Present: soft, normal bowel sounds. Absent: distended, tenderness, guarding, rebound, rigid Back exam: Present: normal inspection. Absent: vertebral tenderness Neurological exam: Present: alert, oriented X3, CN II-XII intact, other ( Strength in all 4 extremities is 5/5.) Psychiatric exam: Present: normal affect, normal mood Skin exam: Present: warm, dry, intact, normal color. Absent: rash <Audra Fonseca M - Last Filed: 08/09/18 04:39> Vital Signs 08/09/18 08/09/18 08/09/18 01:47 04:54 05:54 Temperature 98.6 F 98.6 F 98.5 F Pulse Rate 61 62 64 Respiratory 18 18 24 Rate Blood Pressure 227/94 180/94 222/121 O2 Sat by Pulse 91 L 93 L 99 Oximetry 08/09/18 08/09/18 08/09/18 06:00 06:07 06:35 Temperature Pulse Rate 64 68 60 Respiratory 20 18 20 Rate Blood Pressure 164/117 O2 Sat by Pulse 99 Oximetry 08/09/18 08/09/18 07:16 08:03 Temperature 98.8 F Pulse Rate 62 62 Respiratory 18 18 Rate Blood Pressure 189/83 162/75 O2 Sat by Pulse 96 92 L Oximetry Medical Decision Making - Lab Data Result diagrams: 08/09/18 02:15 08/09/18 02:15 - EKG Data -: EKG Interpreted by Me - Radiology Data Radiology results: report reviewed, image reviewed <Audra Fonseca - Last Filed: 08/09/18 04:39> - Lab Data Result diagrams: 08/09/18 02:15 08/09/18 02:15 <Kee Montanez - Last Filed: 08/09/18 08:15> - Medical Decision Making 73-year-old female patient presented to the emergency department today with complaints of frequent falls and weakness. Patient has had 5 falls over the last 2 days. She denies any injury. Physical examination is relatively unremarkable. She is alert and oriented. She is neurologically intact. Labs reviewed and did reveal a sodium level 121. Patient symptoms are consistent with mild hyponatremia. We will admit to the hospital for sodium replacement. Patient did receive a 500 mL fluid bolus so patient's overall infusion rate was adjusted to account for this. Patient did have evidence of distant heart failure on x-ray, we'll monitor her respiratory status closely with hydration. She'll be admitted to Dr. Rodrigez (Audra Fonseca) I saw this patient in conjunction with the physician business services assistant. I performed independent history and physical exam. Agree with case management. (Kee Montanez) - Lab Data Lab Results 08/09/18 08/09/18 08/09/18 Range/Units 02:15 02:15 02:15 WBC 7.4 (3.8-10.6) k/uL RBC 3.60 L (3.80-5.40) m/uL Hgb 12.2 (11.4-16.0) gm/dL Hct 35.6 (34.0-46.0) % MCV 98.9 (80.0-100.0) fL MCH 33.8 (25.0-35.0) pg MCHC 34.2 (31.0-37.0) g/dL RDW 13.6 (11.5-15.5) % Plt Count 235 (150-450) k/uL Neutrophils % 76 % Lymphocytes % 12 % Monocytes % 8 % Eosinophils % 1 % Basophils % 0 % Neutrophils # 5.7 (1.3-7.7) k/uL Lymphocytes # 0.9 L (1.0-4.8) k/uL Monocytes # 0.6 (0-1.0) k/uL Eosinophils # 0.1 (0-0.7) k/uL Basophils # 0.0 (0-0.2) k/uL Sodium 121 L (137-145) mmol/L Potassium 3.8 (3.5-5.1) mmol/L Chloride 86 L (98-107) mmol/L Carbon Dioxide 26 (22-30) mmol/L Anion Gap 9 mmol/L BUN 11 (7-17) mg/dL Creatinine 0.49 L (0.52-1.04) mg/dL Est GFR (CKD-EPI)AfAm >90 (>60 ml/min/1.73 sqM) Est GFR (CKD-EPI)NonAf >90 (>60 ml/min/1.73 sqM) Glucose 163 H (74-99) mg/dL Plasma Lactic Acid Nam (0.7-2.0) mmol/L Calcium 8.9 (8.4-10.2) mg/dL Total Bilirubin 1.7 H (0.2-1.3) mg/dL AST 47 H (14-36) U/L ALT 32 (9-52) U/L Alkaline Phosphatase 107 (38-126) U/L Total Creatine Kinase 254 H (30-135) U/L CK-MB (CK-2) 3.4 H (0.0-2.4) ng/mL CK-MB (CK-2) Rel Index 1.3 Troponin I 0.015 (0.000-0.034) ng/mL Total Protein 6.7 (6.3-8.2) g/dL Albumin 3.5 (3.5-5.0) g/dL Urine Color Urine Appearance (Clear) Urine pH (5.0-8.0) Ur Specific [place] (1.001-1.035) Urine Protein (Negative) Urine Glucose (UA) (Negative) Urine Ketones (Negative) Urine Blood (Negative) Urine Nitrite (Negative) Urine Bilirubin (Negative) Urine Urobilinogen (<2.0) mg/dL Ur Leukocyte Esterase (Negative) Urine RBC (0-5) /hpf Urine WBC (0-5) /hpf Ur Squamous Epith Cells (0-4) /hpf Amorphous Sediment (None) /hpf Urine Mucus (None) /hpf 08/09/18 08/09/18 Range/Units 02:15 03:36 WBC (3.8-10.6) k/uL RBC (3.80-5.40) m/uL Hgb (11.4-16.0) gm/dL Hct (34.0-46.0) % MCV (80.0-100.0) fL MCH (25.0-35.0) pg MCHC (31.0-37.0) g/dL RDW (11.5-15.5) % Plt Count (150-450) k/uL Neutrophils % % Lymphocytes % % Monocytes % % Eosinophils % % Basophils % % Neutrophils # (1.3-7.7) k/uL Lymphocytes # (1.0-4.8) k/uL Monocytes # (0-1.0) k/uL Eosinophils # (0-0.7) k/uL Basophils # (0-0.2) k/uL Sodium (137-145) mmol/L Potassium (3.5-5.1) mmol/L Chloride (98-107) mmol/L Carbon Dioxide (22-30) mmol/L Anion Gap mmol/L BUN (7-17) mg/dL Creatinine (0.52-1.04) mg/dL Est GFR (CKD-EPI)AfAm (>60 ml/min/1.73 sqM) Est GFR (CKD-EPI)NonAf (>60 ml/min/1.73 sqM) Glucose (74-99) mg/dL Plasma Lactic Acid Nam 1.3 (0.7-2.0) mmol/L Calcium (8.4-10.2) mg/dL Total Bilirubin (0.2-1.3) mg/dL AST (14-36) U/L ALT (9-52) U/L Alkaline Phosphatase (38-126) U/L Total Creatine Kinase (30-135) U/L CK-MB (CK-2) (0.0-2.4) ng/mL CK-MB (CK-2) Rel Index Troponin I (0.000-0.034) ng/mL Total Protein (6.3-8.2) g/dL Albumin (3.5-5.0) g/dL Urine Color Yellow Urine Appearance Cloudy H (Clear) Urine pH 6.0 (5.0-8.0) Ur Specific [place] 1.015 (1.001-1.035) Urine Protein 1+ H (Negative) Urine Glucose (UA) Negative (Negative) Urine Ketones Negative (Negative) Urine Blood Trace H (Negative) Urine Nitrite Negative (Negative) Urine Bilirubin Negative (Negative) Urine Urobilinogen 4.0 (<2.0) mg/dL Ur Leukocyte Esterase Large H (Negative) Urine RBC 2 (0-5) /hpf Urine WBC 15 H (0-5) /hpf Ur Squamous Epith Cells 1 (0-4) /hpf Amorphous Sediment Rare H (None) /hpf Urine Mucus Rare H (None) /hpf - EKG Data EKG Comments: EKG obtained at 02 21 shows normal sinus rhythm with a right bundle branch block , left anterior fascicular block indicating a bifascicular block. Ventricular rate of 61, NE interval 170, QRS duration 146, QT 512, QTC 515. No evidence of ST elevation or depression. (Audra Fonseca) - Radiology Data Two-view x-ray of the chest obtained. Heart is enlarged. There is pulmonary vascular congestion. His blunting of the left costophrenic angle. There is fluid in the left major fissure. There are chest leads. There is left humeral neck fracture. There is osteopenia. Impression by Dr. Vazquez shows congestive heart failure slightly worse than last exam. There is slight increased left pleural effusion. CT brain is performed without contrast. Report was reviewed in its entirety. Impression by Dr. Vazquez shows atrophy. Mild chronic small vessel ischemia. No acute intracranial abnormality. No change. (Audra Fonseca) Disposition Decision to Admit Reason: Admit from EC Decision Date: 08/09/18 Decision Time: 04:49 <Audra Fonseca - Last Filed: 08/09/18 04:39> <Kee Montanez - Last Filed: 08/09/18 08:15> Clinical Impression: Hyponatremia, Frequent falls, Weakness Disposition: ADMITTED IP TO THIS [facility] Condition: Serious
[2018-08-09] MEDS ORDERED: SODIUM CHLORIDE 0.9% 1,000 ML IV SCH (04:30)
[2018-08-09] MEDS ORDERED: NALOXONE 0.4 MG/ML 1 ML VIAL IV PRN (04:34)
[2018-08-09] MEDS ORDERED: ENALAPRILAT 1.25 MG/ML 1 ML VIAL IVP STA (05:38)
[2018-08-09] MEDS ORDERED: IPRATROPIUM-ALBUTEROL 3 ML NEB INHALATION PRN (05:57)
[2018-08-09] MEDS: IPRATROPIUM-ALBUTEROL 3 ML NEB INHALATION PRN ×3 (06:00→21:06)
[2018-08-09 11:35] LABS: Glucose,Whole Blood 158 mg/dL (75-99)
[2018-08-09 11:38] LABS: Anion Gap 9 mmol/L; Blood Urea Nitrogen 12 mg/dL (7-17); Calcium 8.6 mg/dL (8.4-10.2); Carbon Dioxide 26 mmol/L (22-30); Chloride 87 mmol/L (98-107); Glucose 149 mg/dL (74-99); INR 1.3 (<1.2); Partial Thromboplastin Time 27.4 sec (22.0-30.0); Potassium 3.7 mmol/L (3.5-5.1); Prothrombin Time 12.6 sec (9.0-12.0); Sodium 122 mmol/L (137-145)
[2018-08-09] MEDS ORDERED: DOCUSATE 100 MG CAP PO PRN (12:34)
[2018-08-09] MEDS ORDERED: MELATONIN 3 MG TABLET PO PRN (12:34)
[2018-08-09] MEDS ORDERED: TEMAZEPAM 30 MG CAP PO PRN (12:34)
[2018-08-09] MEDS ORDERED: ALBUTEROL NEBULIZED 2.5 MG/3 ML INHALATION PRN (12:34)
[2018-08-09] MEDS ORDERED: oxyCODONE-APAP 7.5-325MG 1 EACH TAB PO PRN (12:34)
[2018-08-09] MEDS ORDERED: ACETAMINOPHEN TAB 325 MG TAB PO PRN (12:45)
[2018-08-09] MEDS: THIAMINE 100 MG TAB PO SCH (13:53)
[2018-08-09] MEDS: ALPRAZolam 0.25 MG TAB PO SCH ×2 (13:53→20:44)
[2018-08-09] MEDS: PRIMIDONE 50 MG TAB PO SCH (13:54)
[2018-08-09] MEDS: VENLAFAXINE HCL ER 75 MG CAP PO SCH (13:54)
[2018-08-09] MEDS: MULTIVITAMINS, THERA 1 EACH TAB PO SCH (13:54)
[2018-08-09] MEDS: LISINOPRIL 20 MG TAB PO SCH (13:54)
[2018-08-09] MEDS: AMIODARONE 200 MG TAB PO SCH (13:54)
--- NOTE | 2018-08-09 14:17 | P.NPCON ---
History of Present Illness - Reason for Consult hyponatremia - History of Present Illness Reason for consultation: Hyponatremia History of present illness: Patient is a 73-year-old female seen in renal consultation for hyponatremia. Patient's sodium level was 121 on admission and she received 1 L of normal saline bolus in the emergency room. Sodium level was repeated and is up to 122. Patient states oral intake for the last 1 week has been quite poor. She does not to drinking quite a bit of water. According to the she drinks 2-3 glasses of water at night and at least 5 glasses during the day. She denies use of any thiazide diuretics. Denies use of NSAIDs. She has been having episodes of vomiting intermittently over the past week. No diarrhea. She has history of diastolic CHF with moderate mitral stenosis. Chest x-ray revealed small effusions. She has history of asthma and COPD. Does admit to dyspnea and wheezing. Admits to good urine output. No history of kidney disease. Vital signs are stable. General: The patient appeared well nourished and normally developed. HEENT: Head exam is unremarkable. Neck is without jugular venous distension. LUNGS: Lungs are clear to auscultation and percussion. Breath sounds decreased. HEART: Rate and Rhythm are regular. First and second heart sounds normal. No murmurs, rubs or gallops. ABDOMEN: Abdominal exam reveals normal bowel sounds. Non-tender and non- distended. No evidence of peritonitis. EXTREMITITES: No clubbing, cyanosis, or edema. 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 Past Anesthesia/Blood Transfusion Reactions: No Reported Reaction Additional Past Anesthesia/Blood Transfusion Reaction / Comment(s): CLAUSTERPHOBIA Smoking Status: Never smoker - Past Family History Father Family Medical History: Cancer, Prostate Disorder Additional Family Medical History / Comment(s): PROSTATE CA, HERNIA SX BACK SX Mother Family Medical History: Cancer Additional Family Medical History / Comment(s): Mother is . Mother had lung cancer. She was a smoker. Medications and Allergies Home Medications Medication Instructions Recorded Confirmed Type Metoprolol Tartrate [Lopressor] 50 mg PO BID 08/18/15 08/09/18 History Carbidopa-Levodopa 25-100 mg 1 tab PO TID 01/15/16 08/09/18 History [Sinemet 25-100 mg] Levothyroxine Sodium 137 mcg PO DAILY 04/28/18 08/09/18 History Multivitamins, Thera [Multivitamin 1 tab PO DAILY 04/28/18 08/09/18 History (formulary)] ALPRAZolam [Xanax] 0.25 mg PO BID 07/01/18 08/09/18 History Acetaminophen [Tylenol 8 Hour] 650 mg PO Q8H 08/09/18 08/09/18 History Albuterol Inhaler [Ventolin Hfa 2 puff INHALATION RT-QID PRN 08/09/18 08/09/18 History Inhaler] Albuterol Nebulized [Ventolin 2.5 mg PO RT-QID 08/09/18 08/09/18 History Nebulized] Amiodarone HCl [Pacerone] 200 mg PO DAILY 08/09/18 08/09/18 History Ammonium Lactate Lotion 1 applic TOPICAL DAILY 08/09/18 08/09/18 History [Lac-Hydrin 12% Lotion] Atorvastatin Calcium [Lipitor] 10 mg PO HS 08/09/18 08/09/18 History Calcium Carb/Vitamin D3/Vit K1 1 tab PO DAILY 08/09/18 08/09/18 History [Citracal Soft Chew] Docusate [Colace] 100 mg PO BID PRN 08/09/18 08/09/18 History Ergocalciferol [Vitamin D2] 50,000 unit PO ROSA 08/09/18 08/09/18 History Ferrous Sulfate [Iron] 325 mg PO DAILY 08/09/18 08/09/18 History Fluticasone/Salmeterol [Advair 1 inhalation PO RT-BID 08/09/18 08/09/18 History 500-50 Diskus] Insulin Aspart (For Pump) [NovoLOG 0.01 unit SQ-PUMP CONTINUOUS 08/09/18 History (For Pump)] Insulin Detemir [Levemir] 7 unit SQ HS 08/09/18 08/09/18 History Lansoprazole 30 mg PO DAILY 08/09/18 08/09/18 History Levocetirizine Dihydrochloride 5 mg PO HS 08/09/18 08/09/18 History [Xyzal] Melatonin 3 mg PO HS PRN 08/09/18 08/09/18 History Primidone [Mysoline] 50 mg PO DAILY 08/09/18 08/09/18 History Quinapril HCl [Accupril] 20 mg PO DAILY 08/09/18 08/09/18 History Temazepam 30 mg PO HS PRN 08/09/18 08/09/18 History Teriparatide [Forteo] 20 mcg SQ DAILY 08/09/18 08/09/18 History Thiamine HCl [Vitamin B-1] 100 mg PO DAILY 08/09/18 08/09/18 History Tolterodine Tartrate [Detrol LA] 4 mg PO HS 08/09/18 08/09/18 History Venlafaxine HCl ER [Effexor Xr] 75 mg PO DAILY 08/09/18 08/09/18 History Vit C/E/Zn/Coppr/Lutein/Zeaxan 1 tab PO DAILY 08/09/18 08/09/18 History [Preservision Areds 2 Softgel] oxyCODONE-APAP 7.5-325MG [Percocet 1 tab PO DAILY PRN 08/09/18 08/09/18 History 7.5-325 mg] Allergies Allergy/AdvReac Type Severity Reaction Status Date / Time cefdinir Allergy Severe Swelling Verified 08/09/18 06:44 Cephalosporins Allergy Unknown Verified 08/09/18 06:44 doxycycline Allergy Nausea & Verified 08/09/18 06:44 Vomiting erythromycin base Allergy Nausea & Verified 08/09/18 06:44 Vomiting & Diarrhea/RASH Penicillins Allergy Rash/Hives Verified 08/09/18 06:44 azithromycin AdvReac Nausea & Verified 08/09/18 06:44 Vomiting codeine AdvReac Unknown Verified 08/09/18 06:44 hydrochlorothiazide AdvReac Nausea & Verified 08/09/18 06:44 [From Dyazide] Vomiting levofloxacin [From Levaquin] AdvReac Abdominal Verified 08/09/18 06:44 Pain moxifloxacin HCl AdvReac Unknown Verified 08/09/18 06:44 [From Avelox] sulfamethoxazole AdvReac Nausea & Verified 08/09/18 06:44 [From Bactrim] Vomiting & Diarrhea triamterene [From Dyazide] AdvReac Nausea & Verified 08/09/18 06:44 Vomiting trimethoprim [From Bactrim] AdvReac Unknown Verified 08/09/18 06:44 Physical Exam Vitals: Vital Signs Temp Pulse Pulse Resp BP BP Pulse Ox 08/09/18 12:39 66 08/09/18 12:28 64 08/09/18 11:16 169/78 08/09/18 10:38 198/84 08/09/18 10:12 98.3 F 61 20 99 08/09/18 09:05 161/88 08/09/18 08:03 62 18 162/75 92 L 08/09/18 07:16 98.8 F 62 18 189/83 96 08/09/18 06:35 60 20 164/117 99 08/09/18 06:07 68 18 08/09/18 06:00 64 20 08/09/18 05:54 98.5 F 64 24 222/121 99 08/09/18 04:54 98.6 F 62 18 180/94 93 L 08/09/18 01:47 98.6 F 61 18 227/94 91 L Intake and Output 08/08/18 08/09/18 08/09/18 22:59 06:59 14:59 Other: Weight 58.967 kg Results - Lab Results Most recent lab results Calcium 8.6 mg/dL (8.4-10.2) 08/09/18 10:59 08/09/18 02:15 08/09/18 10:59 Assessment and Plan Plan: Assessment: 1. Hyponatremia. Patient does not appear hypovolemic at this time. Partially related to excess fluid intake in the setting of low solute intake. Sodium level 122 this morning. 2. History of COPD. 3. Diastolic CHF. 4. Moderate mitral stenosis. 5. Benign hypertension. Plan: Hep-Lock IV fluids. 1.2 L fluid restriction. Add ensure 3 times daily. Check TSH and cortisol level. Check serum and urine osmolality and urine sodium level. Repeat sodium level this evening. Thank you for the consultation. I will continue to follow the patient with you during her hospital stay.
[2018-08-09] MEDS ORDERED: ALBUTEROL NEBULIZED 2.5 MG/3 ML INHALATION SCH (16:00)
[2018-08-09] MEDS: CARBIDOPA-LEVODOPA 25-100 MG 1 EACH TAB PO SCH ×2 (16:06→21:53)
[2018-08-09] MEDS: Teriparatide [Forteo] 20 MCG SQ SCH (16:08)
[2018-08-09] MEDS: AMMONIUM LACTATE 12% LOTION 225 GM BTL TOPICAL SCH (16:42)
[2018-08-09] MEDS ORDERED: INSULIN ASPART 60 UNIT SQ SCH (17:30)
--- NOTE | 2018-08-09 17:53 | HP ---
HISTORY AND PHYSICAL DATE OF SERVICE: 08/09/2018 CHIEF COMPLAINTS: Fall, weakness and shortness of breath. HISTORY OF PRESENT ILLNESS: This 73-year-old woman with a past medical history of multiple medical problems, including atrial fibrillation, history of CHF, COPD, diabetes mellitus, type 2, history of hypertension, hyperlipidemia, muscular disorder, being followed by Dr. Odonnell in the outpatient setting, has multiple medical issues. Patient had severe hyponatremia previously. Currently the patient also has a right lower extremity ulcer which has been treated in the wound care center. The patient has been progressively weak and tired, and the patient had multiple falls. The patient was taken to [facility] and admitted for further evaluation and treatment. Sodium was found to be 121. The patient was physically falling repeatedly over the last week or two. In the last 2 days, the patient has fallen 5 times. The patient is also confused. She was complaining of shortness of breath also. After admission, a chest x-ray was done which was personally reviewed by me. It showed CHF which has worsened compared to last admission. Patient admitted for further evaluation and treatment. There is no history of any fever, rigor or chills. No history of headache, loss of consciousness, seizures at this time. PAST MEDICAL HISTORY: 1. History of atrial fibrillation. 2. History of asthma. 3. CHF. 4. COPD. 5. Diabetes mellitus, type 2. 6. GERD. 7. Hypertension. 8. Hyperlipidemia. HOME MEDICATIONS: Home medications are noted and include: 1. Levemir 7 units subcutaneously at bedtime. 2. Insulin pump. 3. Ammonium lactate. 4. Lowden 7.5 daily p.r.n. 5. Detrol LA 4 mg at bedtime. 6. Albuterol 2.5 q.i.d. 7. Ventolin 2 puffs q.i.d. p.r.n. 8. Xanax 0.25 mg p.o. b.i.d. 9. Citracal 1 tablet p.o. daily. 10.Lipitor 10 mg at bedtime. 11.Colace 100 mg p.o. b.i.d. p.r.n. 12.Vitamin D2 50,000 subcutaneously Wednesday. 13.Forteo 20 mg subcutaneously daily. 14.Mysoline 50 mg p.o. daily. 15.Multivitamins 1 p.o. daily. 16.Effexor XR 75 mg p.o. daily. 17.Lopressor 50 mg p.o. b.i.d. 18.Vitamin B1 100 mg p.o. daily. 19.Accupril 20 mg p.o. daily. 20.Lansoprazole 30 mg p.o. daily. 21.Temazepam 30 mg at bedtime p.r.n. 22.Iron 325 mg p.o. daily. 23.Sinemet 25/100 one p.o. t.i.d. 24.Xyzal 5 mg p.o. at bedtime. 25.Tylenol 650 q.8 p.r.n. 26.PreserVision 1 tablet p.o. daily. 27.Advair 500/50 one puff b.i.d. 28.Pacerone 200 mg p.o. daily. 29.Melatonin 3 mg p.o. at bedtime p.r.n. 30.Levothyroxine 137 mcg p.o. daily. ALLERGIES: 1. CEFDINIR. 2. CEPHALOSPORIN. 3. DOXYCYCLINE. 4. ERYTHROMYCIN BASE. 5. PENICILLIN. 6. ZITHROMAX. 7. CODEINE. 8. HYDROCHLOROTHIAZIDE. 9. LEVAQUIN. 10.MOXIFLOXACIN. 11.SULFAMETHOXAZOLE. 12.TRIAMTERENE. 13.TRIMETHOPRIM. FAMILY HISTORY: History of cancer, prostate cancer, hernia. SOCIAL HISTORY: No history of smoking. No history of alcohol intake. REVIEW OF SYSTEMS: ENT: Diminished hearing. Diminished vision. CARDIOVASCULAR SYSTEM: No angina, palpitations. RESPIRATORY SYSTEM: As mentioned earlier. GI: As mentioned earlier. : No dysuria or retention. NERVOUS SYSTEM: No numbness, weakness. ALLERGY/IMMUNOLOGY: No asthma, hayfever. MUSCULOSKELETAL: As mentioned earlier. HEMATOLOGY/ONCOLOGY: As mentioned earlier. ENDOCRINE: As mentioned earlier. CONSTITUTIONAL: As mentioned earlier. DERMATOLOGY: As mentioned earlier. RHEUMATOLOGY: Negative. PSYCHIATRY: As mentioned earlier. PHYSICAL EXAMINATION: Patient is alert, oriented x3. The pulse is 61, blood pressure 198/84, respiration 20, temperature 98.3, pulse ox 99% on 3 L. HEENT: Conjunctivae normal. Oral mucosa moist. NECK: Jugular venous distention at the root of the neck. No carotid bruit. No lymph node enlargement. CARDIOVASCULAR SYSTEM: S1, S2 muffled. RESPIRATORY SYSTEM: Breath sounds diminished at the bases. A few scattered rhonchi and crackles. ABDOMEN: Soft, non-tender. No mass palpable. LEGS: No edema. No swelling. Significant right ulcerations present, stage III, with granulation tissue. NERVOUS SYSTEM: Higher functions as mentioned earlier. Moves all 4 limbs. No focal deficits. Sensory loss in the legs. SKIN: As mentioned earlier. JOINTS: No active deforming arthropathy. LYMPHATICS: No lymph node palpable in neck, axillae or groin. LABS: WBC 7.4, hemoglobin 12.2, sodium 121, potassium 3.8. BUN is 11, creatinine 0.49 , total bilirubin 1.7. UA noted; possibly UTI. ASSESSMENT: 1. Congestive heart failure, acute exacerbation, with acute on chronic diastolic dysfunction, ejection fraction 55% to 60%. 2. Severe hyponatremia. 3. Generalized gait dysfunction and falls. 4. Right leg ulcer, chronic. 5. Rule out urinary tract infection. 6. Gait dysfunction. 7. Mild to moderate protein-calorie malnutrition. 8. Atrial fibrillation. 9. History of asthma. 10.History of congestive heart failure. 11.Chronic obstructive pulmonary disease. 12.Diabetes mellitus, type 2. 13.Gastroesophageal reflux disease. 14.Hypertension. 15.Hyperlipidemia. 16.Degenerative joint disease. 17.History of insulin pump. 18.History of degenerative joint disease. 19.History of ulcerative colitis. 20.History of breast surgery. 21.History of claustrophobia. 22.History of anxiety. 23.FULL CODE. RECOMMENDATIONS AND DISCUSSION: In this 73-year-old woman who presented with multiple complex medical issues, we will monitor the patient closely, continue the current management, continue symptomatic treatment. Otherwise to the I recommend monitoring the sodium closely. Monitor fluid/electrolyte balance closely. I would also recommend a cardiology consultation along with Nephrology and Infectious Disease. PT/OT also will be consulted. Prognosis guarded. Discussed at length with the family at the bedside, and at this time family would like the patient to go to rehab at [facility]. Resume the rest of the medication. DVT prophylaxis. See orders for further details. Further recommendations to follow. MMODL / IJN: [id number] / CRISTÓBAL
[2018-08-09 17:58] LABS: Glucose,Whole Blood 151 mg/dL (75-99)
[2018-08-09] MEDS: INSULIN ASPART 100 UNIT/ML 1 ML 10 ML VIAL SQ SCH ×2 (18:03→21:54)
[2018-08-09 20:12] LABS: Glucose,Whole Blood 126 mg/dL (75-99)
[2018-08-09] MEDS: OXYBUTYNIN 10 MG TAB.ER.24 PO SCH (20:44)
[2018-08-09] MEDS: ATORVASTATIN 10 MG TAB PO SCH (20:44)
[2018-08-09] MEDS: METOPROLOL TARTRATE 50 MG TAB PO SCH (20:44)
[2018-08-09] MEDS: HEPARIN SODIUM,PORCINE 5,000 UNIT/ML 1 ML VIAL SQ SCH (20:44)
[2018-08-09] MEDS: LORATADINE 10 MG TAB PO SCH (20:44)
[2018-08-09] MEDS: Insulin Aspart (For Pump) 100 UNIT/ML VIAL SQ-PUMP SCH (20:45)
[2018-08-09] MEDS: SYMBICORT 160-4.5 MCG INHALER INHALATION SCH (21:04)
[2018-08-09] MEDS: INSULIN DETEMIR 100 UNIT/ML 10 ML VIAL SQ SCH (21:53)
[2018-08-09 23:44] LABS: Hemoglobin A1C 6.2 % (4.0-6.0)
[2018-08-10] MEDS: LEVOTHYROXINE 137 MCG TAB PO SCH (05:45)
[2018-08-10 07:02] LABS: Glucose,Whole Blood 74 mg/dL (75-99)
[2018-08-10] MEDS: LISINOPRIL 20 MG TAB PO SCH (07:26)
[2018-08-10] MEDS: METOPROLOL TARTRATE 50 MG TAB PO SCH ×2 (07:26→21:12)
[2018-08-10] MEDS: INSULIN ASPART 100 UNIT/ML 1 ML 10 ML VIAL SQ SCH ×4 (07:50→21:12)
[2018-08-10 08:04] LABS: Basophils % (A) 1 %; Eosinophils # (A) 0.1 k/uL (0-0.7); Eosinophils % (A) 3 %; HCT 30.8 % (34.0-46.0); HGB 10.7 gm/dL (11.4-16.0); Lymphocytes # (A) 0.7 k/uL (1.0-4.8); Lymphocytes % (A) 17 %; MCH 33.4 pg (25.0-35.0); MCHC 34.6 g/dL (31.0-37.0); MCV 96.5 fL (80.0-100.0); Mean Platelet Volume 6.5; Monocytes # (A) 0.4 k/uL (0-1.0); Monocytes % (A) 9 %; Neutrophils # (A) 2.8 k/uL (1.3-7.7); Neutrophils % (A) 68 %; Platelet Count 178 k/uL (150-450); RBC 3.19 m/uL (3.80-5.40); RDW 13.4 % (11.5-15.5); WBC 4.2 k/uL (3.8-10.6)
[2018-08-10 08:22] LABS: ALT 27 U/L (9-52); AST 39 U/L (14-36); Albumin 2.7 g/dL (3.5-5.0); Alkaline Phosphatase 83 U/L (38-126); Anion Gap 5 mmol/L; Blood Urea Nitrogen 9 mg/dL (7-17); Calcium 8.3 mg/dL (8.4-10.2); Carbon Dioxide 29 mmol/L (22-30); Chloride 90 mmol/L (98-107); Glucose 62 mg/dL (74-99); Potassium 3.3 mmol/L (3.5-5.1); Sodium 124 mmol/L (137-145); Total Bilirubin 1.2 mg/dL (0.2-1.3); Total Protein 5.4 g/dL (6.3-8.2); Uric Acid 3.4 mg/dL (3.7-7.4)
[2018-08-10] MEDS: VENLAFAXINE HCL ER 75 MG CAP PO SCH (09:27)
[2018-08-10] MEDS: AMIODARONE 200 MG TAB PO SCH (09:27)
[2018-08-10] MEDS: PANTOPRAZOLE 40 MG TABLET PO SCH (09:27)
[2018-08-10] MEDS: PRIMIDONE 50 MG TAB PO SCH (09:27)
[2018-08-10] MEDS: THIAMINE 100 MG TAB PO SCH (09:27)
[2018-08-10] MEDS ORDERED: FUROSEMIDE 10 MG/ML 2 ML VIAL IV ONE (10:06)
--- NOTE | 2018-08-10 10:09 | P.PN ---
Subjective Patient is seen in follow-up for hyponatremia. Sodium level was 121 on admission and is up to 124 today. She is currently off all IV fluids. Denies any nausea or vomiting. Admits to good urine output. Denies chest pain or shortness of breath. Chest x-ray from yesterday was suggestive of vascular congestion and pleural effusion. Vital signs are stable. General: The patient appeared well nourished and normally developed. HEENT: Head exam is unremarkable. Neck is without jugular venous distension. LUNGS: Lungs are clear to auscultation and percussion. Breath sounds decreased. HEART: Rate and Rhythm are regular. First and second heart sounds normal. No murmurs, rubs or gallops. ABDOMEN: Abdominal exam reveals normal bowel sounds. Non-tender and non- distended. No evidence of peritonitis. EXTREMITITES: No clubbing, cyanosis, or edema. Objective - Vital Signs Vital signs: Vital Signs Temp 98.2 F 08/10/18 07:12 Pulse 61 08/10/18 09:23 Resp 20 08/10/18 07:12 BP 138/73 08/10/18 09:23 Pulse Ox 98 08/10/18 07:12 Intake & Output 08/09/18 08/10/18 08/10/18 18:59 06:59 18:59 Intake Total 200 Balance 200 Intake: Oral 200 Other: Voiding Method Bedside Commode Bedside Commode Diaper Diaper # Voids 2 1 # Bowel Movements 1 - Labs CBC & Chem 7: 08/10/18 07:45 08/10/18 07:45 Labs: Abnormal Lab Results - Last 24 Hours (Table) 08/09/18 08/09/18 08/09/18 Range/Units 02:15 10:59 10:59 RBC (3.80-5.40) m/uL Hgb (11.4-16.0) gm/dL Hct (34.0-46.0) % Lymphocytes # (1.0-4.8) k/uL PT 12.6 H (9.0-12.0) sec INR 1.3 H (<1.2) Sodium 122 L (137-145) mmol/L Potassium (3.5-5.1) mmol/L Chloride 87 L (98-107) mmol/L Creatinine 0.50 L (0.52-1.04) mg/dL Glucose 149 H (74-99) mg/dL POC Glucose (mg/dL) (75-99) mg/dL Hemoglobin A1c 6.2 H (4.0-6.0) % Osmolality (280-301) mosm/kg Uric Acid (3.7-7.4) mg/dL Calcium (8.4-10.2) mg/dL AST (14-36) U/L Total Protein (6.3-8.2) g/dL Albumin (3.5-5.0) g/dL TSH (0.465-4.680) mIU/L 08/09/18 08/09/18 08/09/18 Range/Units 10:59 11:23 17:46 RBC (3.80-5.40) m/uL Hgb (11.4-16.0) gm/dL Hct (34.0-46.0) % Lymphocytes # (1.0-4.8) k/uL PT (9.0-12.0) sec INR (<1.2) Sodium (137-145) mmol/L Potassium (3.5-5.1) mmol/L Chloride (98-107) mmol/L Creatinine (0.52-1.04) mg/dL Glucose (74-99) mg/dL POC Glucose (mg/dL) 158 H 151 H (75-99) mg/dL Hemoglobin A1c (4.0-6.0) % Osmolality 253 L (280-301) mosm/kg Uric Acid (3.7-7.4) mg/dL Calcium (8.4-10.2) mg/dL AST (14-36) U/L Total Protein (6.3-8.2) g/dL Albumin (3.5-5.0) g/dL TSH (0.465-4.680) mIU/L 08/09/18 08/09/18 08/10/18 Range/Units 20:01 20:24 06:50 RBC (3.80-5.40) m/uL Hgb (11.4-16.0) gm/dL Hct (34.0-46.0) % Lymphocytes # (1.0-4.8) k/uL PT (9.0-12.0) sec INR (<1.2) Sodium 123 L (137-145) mmol/L Potassium (3.5-5.1) mmol/L Chloride (98-107) mmol/L Creatinine (0.52-1.04) mg/dL Glucose (74-99) mg/dL POC Glucose (mg/dL) 126 H 74 L (75-99) mg/dL Hemoglobin A1c (4.0-6.0) % Osmolality (280-301) mosm/kg Uric Acid (3.7-7.4) mg/dL Calcium (8.4-10.2) mg/dL AST (14-36) U/L Total Protein (6.3-8.2) g/dL Albumin (3.5-5.0) g/dL TSH (0.465-4.680) mIU/L 08/10/18 08/10/18 Range/Units 07:45 07:45 RBC 3.19 L (3.80-5.40) m/uL Hgb 10.7 L (11.4-16.0) gm/dL Hct 30.8 L (34.0-46.0) % Lymphocytes # 0.7 L (1.0-4.8) k/uL PT (9.0-12.0) sec INR (<1.2) Sodium 124 L (137-145) mmol/L Potassium 3.3 L (3.5-5.1) mmol/L Chloride 90 L (98-107) mmol/L Creatinine (0.52-1.04) mg/dL Glucose 62 L (74-99) mg/dL POC Glucose (mg/dL) (75-99) mg/dL Hemoglobin A1c (4.0-6.0) % Osmolality (280-301) mosm/kg Uric Acid 3.4 L (3.7-7.4) mg/dL Calcium 8.3 L (8.4-10.2) mg/dL AST 39 H (14-36) U/L Total Protein 5.4 L (6.3-8.2) g/dL Albumin 2.7 L (3.5-5.0) g/dL TSH 0.137 L (0.465-4.680) mIU/L Microbiology - Last 24 Hours (Table) 08/09/18 Unknown Gram Stain - Preliminary Leg - Right Wound Culture - Preliminary 08/09/18 03:36 Urine Culture - Preliminary Urine,Voided Assessment and Plan Plan: Assessment: 1. Hyponatremia. Patient does not appear hypovolemic at this time. Partially related to excess fluid intake in the setting of low solute intake. Sodium level 124 this morning. Urine osmolality 432 and urine sodium was 32. 2. History of COPD. 3. Diastolic CHF. Chest x-ray was suggestive of vascular congestion. 4. Moderate mitral stenosis. 5. Benign hypertension. Better this morning. 6. Hypokalemia from poor oral intake. Rule out magnesium deficiency. Plan: Remains off IV fluids. Maintain 1.2 L fluid restriction. Maintain ensure 3 times daily. Follow-up TSH and cortisol level. Lasix 20 mg IV once now. Replace potassium. 40 mEq today. Check magnesium level. Repeat sodium level this evening.
[2018-08-10] MEDS: HEPARIN SODIUM,PORCINE 5,000 UNIT/ML 1 ML VIAL SQ SCH (10:30)
[2018-08-10] MEDS: CARBIDOPA-LEVODOPA 25-100 MG 1 EACH TAB PO SCH ×3 (10:30→21:13)
[2018-08-10] MEDS: Teriparatide [Forteo] 20 MCG SQ SCH (10:31)
[2018-08-10] MEDS: CALCIUM CARB-VIT D 500MG-200UN 1 EACH TAB PO SCH (10:31)
[2018-08-10] MEDS: AMMONIUM LACTATE 12% LOTION 225 GM BTL TOPICAL SCH (10:36)
[2018-08-10] MEDS: VIT A,C & E-LUTEIN-MINERALS 1 EACH TAB PO SCH (10:39)
[2018-08-10] MEDS ORDERED: POTASSIUM CHLORIDE ER 20 MEQ TAB.ER PO STA (10:55)
--- NOTE | 2018-08-10 11:15 | P.CRDCN ---
History of Present Illness History of present illness: This is a pleasant 73-year-old female past medical history significant for paroxysmal atrial fibrillation, diabetes mellitus, hypertension , dyslipidemia, chronic diastolic heart failure, COPD, sarcoidosis, chronic kidney disease and parkinsons disease. She follows with Dr. Rivera in the office. We have been asked to see her in consultation for heart failure. She presented to the hospital yesterday with symptoms of frequent falls, weakness and fatigue. She states she has been much less physically active and has had no appetite. She is somewhat vague about her falls but does have multiple bruises noted on her back and arms. She denies chest pain, shortness of breath, dizziness or palpitations. She was found to have sodium level of 121 on arrival. Upon review of her records and speaking with Dr. Odonnell's office it appears her anticoagulation has been stopped. She suffered a fall earlier in June and had to get 13 sutures to her right lower leg. Apparently at that time her eliquis was stopped. She denies any episodes of bleeding. She is seen and examined laying flat in bed in no acute distress. Blood pressure on arrival 227/94 and 222/121. She was given one dose of IV enalapril. EKG reveals sinus mechanism with right bundle branch block pattern. Chest x-ray indicates congestive heart failure worse than previous exam. CT of the brain indicated cerebral atrophy with mild chronic small vessel ischemia and no acute intracranial abnormality. Laboratory data reviewed, WBC 4.2, hemoglobin 10.7, platelets 178, sodium 124, potassium 3.3, creatinine 0.52, cardiac enzymes negative 1, NT proBNP 3750, TSH 0.137. Current cardiac medications include amiodarone 200 mg daily, Accupril 20 mg daily, Lopressor 50 mg twice a day, atorvastatin 10 mg daily. Most recent echocardiogram obtained April 2018 reveals preserved left ventricular systolic function with ejection fraction 55-60%, moderately thickened mitral valve with trace mitral regurgitation noted and moderate mitral stenosis mean gradient across the valve 5.5 mmHg, mild TR and mild pulmonary hypertension with an RVSP of 43 mmHg. At the time of my exam: CONSTITUTIONAL: Denies fever. Denies chills. EYES: Denies blurred vision. Denies vision changes. Denies eye pain. EARS, NOSE, MOUTH & THROAT: Denies headache. Denies sore throat. Denies ear pain. CARDIOVASCULAR: Denies chest pain. Denies shortness of breath. Denies orthopnea. Denies PND. Denies palpitations. RESPIRATORY: Denies cough. GASTROINTESTINAL: Denies abdominal pain. Denies diarrhea. Denies constipation. Denies nausea. Denies vomiting. MUSCULOSKELETAL: Denies myalgias. INTEGUMENTARY: Denies pruitis. Denies rash. NEUROLOGIC: Denies numbness. Denies tingling. Denies weakness. PSYCHIATRIC: Denies anxiety. Denies depression. ENDOCRINE: Denies fatigue. Denies weight change. Denies polydipsia. Denies polyurina. GENITOURINARY: Denies burning, hematuria or urgency with micturation. HEMATOLOGIC: Denies history of anemia. Denies bleeding. Blood pressure 138/73 heart rate 61 afebrile maintaining oxygen saturation on nasal cannula. GENERAL: This is a 73-year-old female in no apparent distress at the time of my examination. Multiple bruises noted on back and arms, dark purple in color. HEENT: Head is atraumatic, normocephalic. Pupils are equal, round. Sclerae anicteric. Conjunctivae are clear. Mucous membranes of the mouth are moist. Neck is supple. There is no jugular venous distention. No carotid bruit is heard. LUNGS: Faint expiratory wheezes noted. No rales or rhonchi. No chest wall tenderness is noted on palpation or with deep breathing. HEART: Regular rate and rhythm with murmur at the apex, no rubs or gallops. S1 and S2 heard. ABDOMEN: Soft, non-tender. Bowel sounds are heard. No organomegaly noted. EXTREMITIES: No evidence of peripheral edema and no calf tenderness noted. Right lower extremity wrapped in gauze, no edema noted on the top of the foot. VASCULAR: Radial and dorsalis pedis pulses palpated, no evidence of clubbing. NEUROLOGIC: Patient is awake, alert and oriented x3. ASSESSMENT Hyponatremia Hypokalemia Generalized weakness Mild exacerbation of chronic diastolic heart failure, IV lasix given this morning by nephrology. Paroxysmal atrial fibrillation, currently maintaining sinus mechanism. Currently not on anti-coagulation per PCP possibly due to frequent falls recently. Hypertension, uncontrolled on arrival Dyslipidemia Right lower extremity wound secondary to fall in June requiring sutures PLAN NTproBNP was checked this morning and came to be elevated at 3750. IV lasix dose was given per nephrology. Clinically she is seen laying flat in bed in no distress. She also denies shortness of breath. Anti-coagulation has been discontinued secondary to recent need for suturing. Resume eliquis 5 mg BID. Electrolytes being replaced by nephrology. Thank you kindly for this consultation. Nurse Practitioner note has been reviewed, I agree with a documented findings and plan of care. Patient was seen and examined. Past Medical History Past Medical History: Atrial Fibrillation, Asthma, Cancer, Heart Failure, COPD, Diabetes Mellitus, Eye Disorder, GERD/Reflux, Hyperlipidemia, Hypertension, Musculoskeletal Disorder, Neurologic Disorder, Renal Disease, Respiratory Disorder, Thyroid Disorder Additional Past Medical History / Comment(s): Current R lower extremity ulcer- tx in [facility], IDDM type II with insulin pump, neuropathy bilateral legs/feet, bronchitis, 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, multiple drug allergies-some reactions severe , parkinsons, short term memory problems at times, L eye ocular stroke-legally blind, macular degeneration bilaterally, hypothyroid, DJD, DDD, several past fractures d/t falls, frequent falls, gait dysfunction, IBS, ulcerative colitis, acute renal failure, UTIs, 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 Past Anesthesia/Blood Transfusion Reactions: No Reported Reaction Additional Past Anesthesia/Blood Transfusion Reaction / Comment(s): CLAUSTERPHOBIA Smoking Status: Never smoker - Past Family History Father Family Medical History: Cancer, Prostate Disorder Additional Family Medical History / Comment(s): PROSTATE CA, HERNIA SX BACK SX Mother Family Medical History: Cancer Additional Family Medical History / Comment(s): Mother is . Mother had lung cancer. She was a smoker. Medications and Allergies Home Medications Medication Instructions Recorded Confirmed Type Metoprolol Tartrate [Lopressor] 50 mg PO BID 08/18/15 08/09/18 History Carbidopa-Levodopa 25-100 mg 1 tab PO TID 01/15/16 08/09/18 History [Sinemet 25-100 mg] Levothyroxine Sodium 137 mcg PO DAILY 04/28/18 08/09/18 History Multivitamins, Thera [Multivitamin 1 tab PO DAILY 04/28/18 08/09/18 History (formulary)] ALPRAZolam [Xanax] 0.25 mg PO BID 07/01/18 08/09/18 History Acetaminophen [Tylenol 8 Hour] 650 mg PO Q8H 08/09/18 08/09/18 History Albuterol Inhaler [Ventolin Hfa 2 puff INHALATION RT-QID PRN 08/09/18 08/09/18 History Inhaler] Albuterol Nebulized [Ventolin 2.5 mg PO RT-QID 08/09/18 08/09/18 History Nebulized] Amiodarone HCl [Pacerone] 200 mg PO DAILY 08/09/18 08/09/18 History Ammonium Lactate Lotion 1 applic TOPICAL DAILY 08/09/18 08/09/18 History [Lac-Hydrin 12% Lotion] Atorvastatin Calcium [Lipitor] 10 mg PO HS 08/09/18 08/09/18 History Calcium Carb/Vitamin D3/Vit K1 1 tab PO DAILY 08/09/18 08/09/18 History [Citracal Soft Chew] Docusate [Colace] 100 mg PO BID PRN 08/09/18 08/09/18 History Ergocalciferol [Vitamin D2] 50,000 unit PO ROSA 08/09/18 08/09/18 History Ferrous Sulfate [Iron] 325 mg PO DAILY 08/09/18 08/09/18 History Fluticasone/Salmeterol [Advair 1 inhalation PO RT-BID 08/09/18 08/09/18 History 500-50 Diskus] Insulin Aspart (For Pump) [NovoLOG 0.01 unit SQ-PUMP CONTINUOUS 08/09/18 History (For Pump)] Insulin Detemir [Levemir] 7 unit SQ HS 08/09/18 08/09/18 History Lansoprazole 30 mg PO DAILY 08/09/18 08/09/18 History Levocetirizine Dihydrochloride 5 mg PO HS 08/09/18 08/09/18 History [Xyzal] Melatonin 3 mg PO HS PRN 08/09/18 08/09/18 History Primidone [Mysoline] 50 mg PO DAILY 08/09/18 08/09/18 History Quinapril HCl [Accupril] 20 mg PO DAILY 08/09/18 08/09/18 History Temazepam 30 mg PO HS PRN 08/09/18 08/09/18 History Teriparatide [Forteo] 20 mcg SQ DAILY 08/09/18 08/09/18 History Thiamine HCl [Vitamin B-1] 100 mg PO DAILY 08/09/18 08/09/18 History Tolterodine Tartrate [Detrol LA] 4 mg PO HS 08/09/18 08/09/18 History Venlafaxine HCl ER [Effexor Xr] 75 mg PO DAILY 08/09/18 08/09/18 History Vit C/E/Zn/Coppr/Lutein/Zeaxan 1 tab PO DAILY 08/09/18 08/09/18 History [Preservision Areds 2 Softgel] oxyCODONE-APAP 7.5-325MG [Percocet 1 tab PO DAILY PRN 08/09/18 08/09/18 History 7.5-325 mg] Allergies Allergy/AdvReac Type Severity Reaction Status Date / Time cefdinir Allergy Severe Swelling Verified 08/09/18 06:44 Cephalosporins Allergy Unknown Verified 08/09/18 06:44 doxycycline Allergy Nausea & Verified 08/09/18 06:44 Vomiting erythromycin base Allergy Nausea & Verified 08/09/18 06:44 Vomiting & Diarrhea/RASH Penicillins Allergy Rash/Hives Verified 08/09/18 06:44 azithromycin AdvReac Nausea & Verified 08/09/18 06:44 Vomiting codeine AdvReac Unknown Verified 08/09/18 06:44 hydrochlorothiazide AdvReac Nausea & Verified 08/09/18 06:44 [From Dyazide] Vomiting levofloxacin [From Levaquin] AdvReac Abdominal Verified 08/09/18 06:44 Pain moxifloxacin HCl AdvReac Unknown Verified 08/09/18 06:44 [From Avelox] sulfamethoxazole AdvReac Nausea & Verified 08/09/18 06:44 [From Bactrim] Vomiting & Diarrhea triamterene [From Dyazide] AdvReac Nausea & Verified 08/09/18 06:44 Vomiting trimethoprim [From Bactrim] AdvReac Unknown Verified 08/09/18 06:44 Physical Exam Vitals: Vital Signs Temp Pulse Pulse Resp BP BP Pulse Ox 08/10/18 09:23 61 138/73 08/10/18 07:17 65 190/69 08/10/18 07:12 98.2 F 58 L 20 182/62 98 08/10/18 01:41 97.7 F 69 22 194/85 99 08/09/18 23:11 16 08/09/18 21:17 80 08/09/18 21:08 80 08/09/18 20:05 62 16 08/09/18 19:00 98.3 F 62 16 161/65 98 08/09/18 15:00 98.8 F 83 16 115/74 95 08/09/18 12:39 66 08/09/18 12:28 64 08/09/18 11:16 169/78 08/09/18 10:38 198/84 Intake and Output 08/09/18 08/10/18 08/10/18 22:59 06:59 14:59 Intake Total 200 Balance 200 Intake: Oral 200 Other: Voiding Method Bedside Commode Diaper # Voids 1 1 # Bowel Movements 1 Results 08/10/18 07:45 08/10/18 07:45 Cardiac Enzymes 08/10/18 Range/Units 07:45 AST 39 H (14-36) U/L Coagulation 08/09/18 Range/Units 10:59 PT 12.6 H (9.0-12.0) sec APTT 27.4 (22.0-30.0) sec CBC 08/10/18 Range/Units 07:45 WBC 4.2 (3.8-10.6) k/uL RBC 3.19 L (3.80-5.40) m/uL Hgb 10.7 L (11.4-16.0) gm/dL Hct 30.8 L (34.0-46.0) % Plt Count 178 (150-450) k/uL Comprehensive Metabolic Panel 08/09/18 08/09/18 08/10/18 Range/Units 10:59 20:24 07:45 Sodium 122 L 123 L 124 L (137-145) mmol/L Potassium 3.7 3.3 L (3.5-5.1) mmol/L Chloride 87 L 90 L (98-107) mmol/L Carbon Dioxide 26 29 (22-30) mmol/L BUN 12 9 (7-17) mg/dL Creatinine 0.50 L 0.52 (0.52-1.04) mg/dL Glucose 149 H 62 L (74-99) mg/dL Calcium 8.6 8.3 L (8.4-10.2) mg/dL AST 39 H (14-36) U/L ALT 27 (9-52) U/L Alkaline Phosphatase 83 (38-126) U/L Total Protein 5.4 L (6.3-8.2) g/dL Albumin 2.7 L (3.5-5.0) g/dL Current Medications Generic Name Dose Route Start Last Admin Trade Name Freq PRN Reason Stop Dose Admin Acetaminophen 650 mg 08/09/18 12:45 Tylenol Tab PO Q8H PRN Mild Pain Albuterol/Ipratropium 3 ml 08/09/18 05:57 08/09/18 21:06 Duoneb 0.5 Mg-3 Mg/3 Ml Soln INHALATION 3 ml RT-QID PRN Administration Shortness Of Breath Or Wheezing Albuterol/Ipratropium 3 ml 08/09/18 05:57 Duoneb 0.5 Mg-3 Mg/3 Ml Soln INHALATION RT-Q2H PRN Shortness Of Breath Or Wheezing Alprazolam 0.25 mg 08/09/18 12:45 08/09/18 20:44 Xanax PO 0.25 mg BID LAMBERTO Administration Amiodarone HCl 200 mg 08/09/18 12:45 08/10/18 09:27 Cordarone PO 200 mg DAILY LAMBERTO Administration Atorvastatin Calcium 10 mg 08/09/18 21:00 08/09/18 20:44 Lipitor PO 10 mg HS LAMBERTO Administration Budesonide/Formoterol Fumarate 2 puff 08/09/18 20:00 08/09/18 21:04 Symbicort 160-4.5 Mcg Inhaler INHALATION 2 puff RT-BID LAMBERTO Administration Calcium Carbonate 1 each 08/10/18 09:00 08/10/18 10:31 Oscal 500+D PO 1 each DAILY LAMBERTO Administration Carbidopa/Levodopa 1 each 08/09/18 16:00 08/10/18 10:30 Sinemet 25-100 PO 1 each TID LAMBERTO Administration Docusate Sodium 100 mg 08/09/18 12:34 Colace PO BID PRN Constipation Ergocalciferol 50,000 unit 08/14/18 12:00 Vitamin D2 PO ROSA LAMBERTO Ferrous Sulfate 325 mg 08/10/18 12:00 Feosol PO DAILY@1200 [facility] Heparin Sodium (Porcine) 5,000 unit 08/09/18 21:00 08/10/18 10:30 Heparin SQ 5,000 unit Q12HR LAMBERTO Administration Insulin Aspart 0 unit 08/09/18 17:30 08/10/18 07:50 Novolog SQ Not Given ACHS [facility] Protocol Insulin Aspart 0.01 unit 08/09/18 16:00 08/09/18 20:45 Novolog (For Pump) SQ-PUMP Not Given CONTINUOUS [facility] Insulin Detemir 7 unit 08/09/18 21:00 08/09/18 21:53 Levemir SQ 7 unit HS LAMBERTO Administration Lactic Acid 1 applic 08/09/18 13:00 08/10/18 10:36 Lac-Hydrin 12% TOPICAL Not Given DAILY [facility] Levothyroxine Sodium 137 mcg 08/10/18 06:30 08/10/18 05:45 Synthroid PO 137 mcg DAILY@0630 [facility] Administration Lisinopril 20 mg 08/09/18 13:00 08/10/18 07:26 Zestril PO 20 mg DAILY LAMBERTO Administration Loratadine 10 mg 08/09/18 21:00 08/09/18 20:44 Claritin PO 10 mg HS LAMBERTO Administration Melatonin 3 mg 08/09/18 12:34 Melatonin PO HS PRN Insomnia Metoprolol Tartrate 50 mg 08/09/18 21:00 08/10/18 07:26 Lopressor PO 50 mg BID LAMBERTO Administration Multivitamins 1 each 08/09/18 13:00 08/09/18 13:54 Theragran PO 1 each DAILY@1200 [facility] Administration Multivitamins/Minerals 1 each 08/10/18 09:00 Ivite PO DAILY [facility] Naloxone HCl 0.2 mg 08/09/18 04:34 Narcan IV Q2M PRN Opioid Reversal Teriparatide [Forteo 20 mcg 08/09/18 13:00 08/10/18 10:31 ] 20 Mcg SQ Not Given DAILY LAMBERTO Oxybutynin Chloride 10 mg 08/09/18 21:00 08/09/18 20:44 Ditropan Xl PO 10 mg HS LAMBERTO Administration Oxycodone/Acetaminophen 1 each 08/09/18 12:34 Percocet 7.5-325 PO DAILY PRN Severe Pain Pantoprazole Sodium 40 mg 08/10/18 07:30 08/10/18 09:27 Protonix PO 40 mg [id number] LAMBERTO Administration Primidone 50 mg 08/09/18 13:00 08/10/18 09:27 Mysoline PO 50 mg DAILY LAMBERTO Administration Temazepam 30 mg 08/09/18 12:34 Restoril PO HS PRN Insomnia Thiamine HCl 100 mg 08/09/18 13:00 08/10/18 09:27 Vitamin B-1 PO 100 mg DAILY LAMBERTO Administration Venlafaxine HCl 75 mg 08/09/18 13:00 08/10/18 09:27 Effexor Xr PO 75 mg DAILY LAMBERTO Administration Intake and Output 08/09/18 08/10/18 08/10/18 22:59 06:59 14:59 Intake Total 200 Balance 200 Intake: Oral 200 Other: Voiding Method Bedside Commode Diaper # Voids 1 1 # Bowel Movements 1 08/10/18 07:45 08/10/18 07:45
[2018-08-10] MEDS: SYMBICORT 160-4.5 MCG INHALER INHALATION SCH ×2 (11:23→20:44)
[2018-08-10 12:37] LABS: Glucose,Whole Blood 272 mg/dL (75-99)
[2018-08-10] MEDS: FERROUS SULFATE 325 MG TAB PO SCH (12:50)
[2018-08-10] MEDS: MULTIVITAMINS, THERA 1 EACH TAB PO SCH (12:51)
[2018-08-10] MEDS: APIXABAN 5 MG TAB PO SCH ×2 (12:51→21:11)
[2018-08-10] MEDS: ALPRAZolam 0.25 MG TAB PO SCH ×2 (15:15→21:11)
[2018-08-10] MEDS: IPRATROPIUM-ALBUTEROL 3 ML NEB INHALATION PRN ×2 (16:00→20:45)
[2018-08-10 16:43] LABS: Glucose,Whole Blood 104 mg/dL (75-99)
--- NOTE | 2018-08-10 16:57 | PN ---
PROGRESS NOTE DATE OF SERVICE: 08/10/2018 This 73-year-old woman who was admitted with CHF, acute exacerbation, also had severe hyponatremia. The patient also has gait dysfunction and a significant right leg ulcer also. The patient was suspected to have pericardial effusion as well. Cardiology is also following the patient closely. IV Lasix was given by Nephrology today. The patient also atrial fibrillation. The patient is being closely monitored at this time. PT/OT is also evaluating the patient. The patient continues to be confused. Past medical history reviewed. Review of systems could not be taken, as the patient is mildly confused. CURRENT MEDICATIONS: Reviewed. They include: 1. Tylenol 650 q.8 p.r.n. 2. DuoNeb q.i.d. and p.r.n. 3. Xanax 0.25 b.i.d. 4. Cordarone 200 mg p.o. daily. 5. Eliquis 5 mg p.o. b.i.d. 6. Lipitor 10 mg at bedtime. 7. Symbicort 160/4.5 two puffs b.i.d. 8. Os-Scar with vitamin D one p.o. daily. 9. Sinemet 25/100 one p.o. t.i.d. 10.Colace 100 mg p.o. b.i.d. 11.Vitamin D2 50,000 on Wednesday. 12.Iron sulfate 325 mg daily. 13.Folic acid 1 mg daily. 14.NovoLog scale. 15.Levemir 7 units subcutaneously at bedtime. 16.Lac-Hydrin. 17.Synthroid 137 mcg p.o. daily. 18.Zestril 20 mg p.o. daily. 19.Claritin 10 mg p.o. at bedtime. 20.Magnesium sulfate. 21.Melatonin 3 mg at bedtime. 22.Lopressor 50 mg p.o. b.i.d. 23.Multivitamin 1 p.o. daily. 24.Ivite. 25.Narcan. 26.Ditropan XL 10 mg at bedtime. 27.Percocet 7.5 p.o. daily. 28.Protonix 40 mg at bedtime. 29.Mysoline 50 mg p.o. daily. 30.Risperdal 0.125 mg p.o. at bedtime. 31.Vitamin B1 100 mg daily. 32.Effexor XR 75 mg p.o. daily. PHYSICAL EXAMINATION: Patient is alert, oriented x1. Pulse 74, blood pressure 160/88, respiration 16, temperature 98.6, pulse ox 92% on 2 L. HEENT: Conjunctivae normal. Oral mucosa moist. NECK: No jugular venous distention. No carotid bruit. No lymph node enlargement. CARDIOVASCULAR SYSTEM: S1, S2 muffled. RESPIRATORY SYSTEM: Breath sounds diminished at the bases. A few scattered rhonchi and crackles. ABDOMEN: Soft, obese, non-tender. LEGS: No edema. No swelling. NERVOUS SYSTEM: Diffusely weak. LABS: WBC 4.2, hemoglobin 10.7, sodium 124, potassium 3.3. Sodium was 123. Otherwise, magnesium was 1.3. TSH is 0.137. Free T4 and cortisol are pending at this time. ASSESSMENT: 1. Congestive heart failure, acute exacerbation, with acute on chronic diastolic dysfunction, ejection fraction 55% to 60%. 2. Severe hyponatremia. 3. Generalized gait dysfunction and falls. 4. Right leg ulcer, chronic. 5. Possible urinary tract infection. 6. Gait dysfunction. 7. Mild protein-calorie malnutrition. 8. Change in mental status, metabolic encephalopathy, multifactorial. 9. Atrial fibrillation. 10.History of asthma. 11.History of congestive heart failure. 12.History of chronic obstructive pulmonary disease. 13.Diabetes mellitus, type 2. 14.Gastroesophageal reflux disease. 15.Hypertension. 16.Hyperlipidemia. 17.History of degenerative joint disease. 18.History of insulin pump. 19.History of ulcerative colitis. 20.History of breast surgery. 21.History of claustrophobia. 22.Anxiety. 23.Hypomagnesemia. 24.Hypokalemia. 25.FULL CODE. RECOMMENDATIONS AND DISCUSSION: I recommend to continue current management. Continue with symptomatic treatment. Follow the cultures. We will continue to monitor, continue to supplement electrolyte. The free T4 is pending at this time. Continue the rest of the medications. [facility] has been consulted. We will follow the patient closely along with multiple consultants. Monitor the creatinine closely. Guarded prognosis because of multiple complex medical issues. Further recommendations to follow. MMODL / IJN: [id number] / MTDD
[2018-08-10] MEDS: Insulin Aspart (For Pump) 100 UNIT/ML VIAL SQ-PUMP SCH (17:04)
[2018-08-10] MEDS: MAGNESIUM SULFATE-D5W PMX 1 GM in DEXTROSE/WATER 1 100ML.BAG IVPB SCH ×2 (17:05→21:11)
[2018-08-10 18:18] LABS: T4, Free (Free Thyroxine) 3.86 ng/dL (0.78-2.19)
[2018-08-10 20:29] LABS: Glucose,Whole Blood 215 mg/dL (75-99)
[2018-08-10] MEDS: ATORVASTATIN 10 MG TAB PO SCH (21:11)
[2018-08-10] MEDS: OXYBUTYNIN 10 MG TAB.ER.24 PO SCH (21:12)
[2018-08-10] MEDS: LORATADINE 10 MG TAB PO SCH (21:12)
[2018-08-10] MEDS: INSULIN DETEMIR 100 UNIT/ML 10 ML VIAL SQ SCH (21:12)
[2018-08-10] MEDS: risperiDONE 0.25 MG TAB PO SCH (21:13)
--- NOTE | 2018-08-10 22:55 | P.CONS ---
History of Present Illness - Reason for Consult Consult date: 08/10/18 - Chief Complaint altered mental staus - History of Present Illness 73-year-old female known to the service from her many prior hospitalizations and current open ulcerations the left lateral leg. The patient has multiple medical troubles is noted that includes congestive heart failure and chronic kidney disease. She recently has been having difficulties with multiple falls and has been evaluated was found evidence of hyponatremia. It is related that she drinks a significant amount of free water and has been having poor oral intake otherwise. She was seen by nephrology and is thought that she has a normovolemic hyponatremia and she's been placed on a fluid restriction. It is related the patient's mental status has been declining with the hyponatremia. There is no notation of any significant fevers chills or rigors or sweats before her admission. The patient remains a very poor historian. 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 Past Anesthesia/Blood Transfusion Reactions: No Reported Reaction Additional Past Anesthesia/Blood Transfusion Reaction / Comm: CLAUSTERPHOBIA Additional Psychological History / Comment(s): Is cared for in the family home by the Smoking Status: Never smoker - Past Family History Father Family Medical History: Cancer, Prostate Disorder Additional Family Medical History / Comment(s): PROSTATE CA, HERNIA SX BACK SX Mother Family Medical History: Cancer Additional Family Medical History / Comment(s): Mother is . Mother had lung cancer. She was a smoker. Medications and Allergies Home Medications and Allergies Comment(s): Current Medications Acetaminophen (Tylenol Tab) 650 mg PO Q8H PRN PRN Reason: Mild Pain Albuterol/Ipratropium (Duoneb 0.5 Mg-3 Mg/3 Ml Soln) 3 ml INHALATION RT-QID PRN PRN Reason: Shortness Of Breath Or Wheezing Last Admin: 08/10/18 20:45 Dose: 3 ml Albuterol/Ipratropium (Duoneb 0.5 Mg-3 Mg/3 Ml Soln) 3 ml INHALATION RT-Q2H PRN PRN Reason: Shortness Of Breath Or Wheezing Alprazolam (Xanax) 0.25 mg PO BID [facility] Last Admin: 08/10/18 21:11 Dose: 0.25 mg Amiodarone HCl (Cordarone) 200 mg PO DAILY [facility] Last Admin: 08/10/18 09:27 Dose: 200 mg Apixaban (Eliquis) 5 mg PO BID [facility] Last Admin: 08/10/18 21:11 Dose: 5 mg Atorvastatin Calcium (Lipitor) 10 mg PO HS [facility] Last Admin: 08/10/18 21:11 Dose: 10 mg Budesonide/Formoterol Fumarate (Symbicort 160-4.5 Mcg Inhaler) 2 puff INHALATION RT-BID [facility] Last Admin: 08/10/18 20:44 Dose: 2 puff Calcium Carbonate (Oscal 500+D) 1 each PO DAILY [facility] Last Admin: 08/10/18 10:31 Dose: 1 each Carbidopa/Levodopa (Sinemet 25-100) 1 each PO TID [facility] Last Admin: 08/10/18 21:13 Dose: 1 each Docusate Sodium (Colace) 100 mg PO BID PRN PRN Reason: Constipation Ergocalciferol (Vitamin D2) 50,000 unit PO [facility] Ferrous Sulfate (Feosol) 325 mg PO DAILY@1200 [facility] Last Admin: 08/10/18 12:50 Dose: 325 mg Folic Acid (Folic Acid) 1 mg PO DAILY@1200 [facility] Magnesium Sulfate/Dextrose 1 (gm/ IV Solution) 100 mls @ 33 mls/hr IVPB Q3H [facility] Stop: 08/11/18 02:59 Last Admin: 08/10/18 21:11 Dose: 33 mls/hr Insulin Aspart (Novolog) 0 unit SQ ACHS [facility]; Protocol Last Admin: 08/10/18 21:12 Dose: 3 unit Insulin Aspart (Novolog (For Pump)) 0.01 unit SQ-PUMP CONTINUOUS [facility] Last Admin: 08/10/18 17:04 Dose: Not Given Insulin Detemir (Levemir) 7 unit SQ HS [facility] Last Admin: 08/10/18 21:12 Dose: 7 unit Lactic Acid (Lac-Hydrin 12%) 1 applic TOPICAL DAILY [facility] Last Admin: 08/10/18 10:36 Dose: Not Given Levothyroxine Sodium (Synthroid) 137 mcg PO DAILY@0630 [facility] Last Admin: 08/10/18 05:45 Dose: 137 mcg Lisinopril (Zestril) 20 mg PO DAILY [facility] Last Admin: 08/10/18 07:26 Dose: 20 mg Loratadine (Claritin) 10 mg PO HS [facility] Last Admin: 08/10/18 21:12 Dose: 10 mg Melatonin (Melatonin) 3 mg PO HS PRN PRN Reason: Insomnia Metoprolol Tartrate (Lopressor) 50 mg PO BID [facility] Last Admin: 08/10/18 21:12 Dose: 50 mg Multivitamins (Theragran) 1 each PO DAILY@1200 [facility] Last Admin: 08/10/18 12:51 Dose: 1 each Multivitamins/Minerals (Ivite) 1 each PO DAILY [facility] Last Admin: 08/10/18 10:39 Dose: 1 each Naloxone HCl (Narcan) 0.2 mg IV Q2M PRN PRN Reason: Opioid Reversal Teriparatide [Forteo (] 20 Mcg) 20 mcg SQ DAILY [facility] Last Admin: 08/10/18 10:31 Dose: Not Given Oxybutynin Chloride (Ditropan Xl) 10 mg PO HS [facility] Last Admin: 08/10/18 21:12 Dose: 10 mg Oxycodone/Acetaminophen (Percocet 7.5-325) 1 each PO DAILY PRN PRN Reason: Severe Pain Pantoprazole Sodium (Protonix) 40 mg PO AC-BRKFST [facility] Last Admin: 08/10/18 09:27 Dose: 40 mg Primidone (Mysoline) 50 mg PO DAILY [facility] Last Admin: 08/10/18 09:27 Dose: 50 mg Risperidone (Risperdal) 0.125 mg PO HS [facility] Last Admin: 08/10/18 21:13 Dose: 0.125 mg Temazepam (Restoril) 30 mg PO HS PRN PRN Reason: Insomnia Thiamine HCl (Vitamin B-1) 100 mg PO DAILY [facility] Last Admin: 08/10/18 09:27 Dose: 100 mg Venlafaxine HCl (Effexor Xr) 75 mg PO DAILY [facility] Last Admin: 08/10/18 09:27 Dose: 75 mg Home Medications Medication Instructions Recorded Confirmed Type Metoprolol Tartrate [Lopressor] 50 mg PO BID 08/18/15 08/09/18 History Carbidopa-Levodopa 25-100 mg 1 tab PO TID 01/15/16 08/09/18 History [Sinemet 25-100 mg] Levothyroxine Sodium 137 mcg PO DAILY 04/28/18 08/09/18 History Multivitamins, Thera [Multivitamin 1 tab PO DAILY 04/28/18 08/09/18 History (formulary)] ALPRAZolam [Xanax] 0.25 mg PO BID 07/01/18 08/09/18 History Acetaminophen [Tylenol 8 Hour] 650 mg PO Q8H 08/09/18 08/09/18 History Albuterol Inhaler [Ventolin Hfa 2 puff INHALATION RT-QID PRN 08/09/18 08/09/18 History Inhaler] Albuterol Nebulized [Ventolin 2.5 mg PO RT-QID 08/09/18 08/09/18 History Nebulized] Amiodarone HCl [Pacerone] 200 mg PO DAILY 08/09/18 08/09/18 History Ammonium Lactate Lotion 1 applic TOPICAL DAILY 08/09/18 08/09/18 History [Lac-Hydrin 12% Lotion] Atorvastatin Calcium [Lipitor] 10 mg PO HS 08/09/18 08/09/18 History Calcium Carb/Vitamin D3/Vit K1 1 tab PO DAILY 08/09/18 08/09/18 History [Citracal Soft Chew] Docusate [Colace] 100 mg PO BID PRN 08/09/18 08/09/18 History Ergocalciferol [Vitamin D2] 50,000 unit PO ROSA 08/09/18 08/09/18 History Ferrous Sulfate [Iron] 325 mg PO DAILY 08/09/18 08/09/18 History Fluticasone/Salmeterol [Advair 1 inhalation PO RT-BID 08/09/18 08/09/18 History 500-50 Diskus] Insulin Aspart (For Pump) [NovoLOG 0.01 unit SQ-PUMP CONTINUOUS 08/09/18 History (For Pump)] Insulin Detemir [Levemir] 7 unit SQ HS 08/09/18 08/09/18 History Lansoprazole 30 mg PO DAILY 08/09/18 08/09/18 History Levocetirizine Dihydrochloride 5 mg PO HS 08/09/18 08/09/18 History [Xyzal] Melatonin 3 mg PO HS PRN 08/09/18 08/09/18 History Primidone [Mysoline] 50 mg PO DAILY 08/09/18 08/09/18 History Quinapril HCl [Accupril] 20 mg PO DAILY 08/09/18 08/09/18 History Temazepam 30 mg PO HS PRN 08/09/18 08/09/18 History Teriparatide [Forteo] 20 mcg SQ DAILY 08/09/18 08/09/18 History Thiamine HCl [Vitamin B-1] 100 mg PO DAILY 08/09/18 08/09/18 History Tolterodine Tartrate [Detrol LA] 4 mg PO HS 08/09/18 08/09/18 History Venlafaxine HCl ER [Effexor Xr] 75 mg PO DAILY 08/09/18 08/09/18 History Vit C/E/Zn/Coppr/Lutein/Zeaxan 1 tab PO DAILY 08/09/18 08/09/18 History [Preservision Areds 2 Softgel] oxyCODONE-APAP 7.5-325MG [Percocet 1 tab PO DAILY PRN 08/09/18 08/09/18 History 7.5-325 mg] Allergies Allergy/AdvReac Type Severity Reaction Status Date / Time cefdinir Allergy Severe Swelling Verified 08/09/18 06:44 Cephalosporins Allergy Unknown Verified 08/09/18 06:44 doxycycline Allergy Nausea & Verified 08/09/18 06:44 Vomiting erythromycin base Allergy Nausea & Verified 08/09/18 06:44 Vomiting & Diarrhea/RASH Penicillins Allergy Rash/Hives Verified 08/09/18 06:44 azithromycin AdvReac Nausea & Verified 08/09/18 06:44 Vomiting codeine AdvReac Unknown Verified 08/09/18 06:44 hydrochlorothiazide AdvReac Nausea & Verified 08/09/18 06:44 [From Dyazide] Vomiting levofloxacin [From Levaquin] AdvReac Abdominal Verified 08/09/18 06:44 Pain moxifloxacin HCl AdvReac Unknown Verified 08/09/18 06:44 [From Avelox] sulfamethoxazole AdvReac Nausea & Verified 08/09/18 06:44 [From Bactrim] Vomiting & Diarrhea triamterene [From Dyazide] AdvReac Nausea & Verified 08/09/18 06:44 Vomiting trimethoprim [From Bactrim] AdvReac Unknown Verified 08/09/18 06:44 Physical Exam Vitals: Vital Signs Temp Pulse Pulse Resp BP BP Pulse Ox 08/10/18 20:58 68 08/10/18 20:47 64 08/10/18 19:00 98.4 F 63 16 168/72 95 08/10/18 16:12 70 08/10/18 16:02 68 08/10/18 15:40 98.6 F 58 L 16 147/74 99 08/10/18 14:50 98.6 F 74 16 164/88 92 L 08/10/18 09:23 61 138/73 08/10/18 07:17 65 190/69 08/10/18 07:12 98.2 F 58 L 20 182/62 98 08/10/18 01:41 97.7 F 69 22 194/85 99 08/09/18 23:11 16 Intake and Output 08/10/18 08/10/18 08/10/18 06:59 14:59 22:59 Intake Total 200 Balance 200 Intake: Oral 200 Other: Voiding Method Bedside Commode Bedside Commode Diaper Diaper # Voids 1 1 Weight 58.967 kg 73-year-old woman arousable, does not seem to recognize the observer HEENT: Anicteric conjunctiva are pink and moist nasal mucosa grossly intact without significant lesions, there is no thrush. Dentition is poor Neck: The neck is supple without significant lymphadenopathy or thyromegaly. Lungs: There is symmetrical air entry with basilar crackles but no amina bronchial sounds are noted Heart: Irregular with an audible S1 and S2 soft S4 no murmur click or rub is noted PMI was nondisplaced Abdomen: Obese, Positive bowel sounds soft and nontender without palpable masses or organomegaly. There was no guarding or rebound. Extremities: The upper extremities have excellent pulses they are symmetric, no significant petechiae or telangiectasia. No splinter hemorrhages were noted. Lower extremities have evidence of some chronic bilateral lower extremity edema. Left leg has evidence of the area of the prior trauma with the open ulceration measuring approximately 4 x 3.5 x 0.2 cm. There is granulation at the base with no surrounding erythema. Does not seem to be tender upon manipulation. Peripheral pulses are easily palpable with good capillary refill Neuro: Awake alert oriented to person she knows that she is not at home but cannot relate what kind of play she is at. Not able to relate to time. Does not recall the observer. Was able to move upper and lower extremities Results CBC & Chem 7: 08/10/18 07:45 08/10/18 17:22 Labs: Abnormal Lab Results - Last 24 Hours (Table) 08/09/18 08/10/18 08/10/18 Range/Units 02:15 06:50 07:45 RBC (3.80-5.40) m/uL Hgb (11.4-16.0) gm/dL Hct (34.0-46.0) % Lymphocytes # (1.0-4.8) k/uL Sodium 124 L (137-145) mmol/L Potassium 3.3 L (3.5-5.1) mmol/L Chloride 90 L (98-107) mmol/L Glucose 62 L (74-99) mg/dL POC Glucose (mg/dL) 74 L (75-99) mg/dL Hemoglobin A1c 6.2 H (4.0-6.0) % Uric Acid 3.4 L (3.7-7.4) mg/dL Calcium 8.3 L (8.4-10.2) mg/dL Magnesium (1.6-2.3) mg/dL AST 39 H (14-36) U/L Total Protein 5.4 L (6.3-8.2) g/dL Albumin 2.7 L (3.5-5.0) g/dL TSH 0.137 L (0.465-4.680) mIU/L Free T4 3.86 H (0.78-2.19) ng/dL 08/10/18 08/10/18 08/10/18 Range/Units 07:45 07:45 12:25 RBC 3.19 L (3.80-5.40) m/uL Hgb 10.7 L (11.4-16.0) gm/dL Hct 30.8 L (34.0-46.0) % Lymphocytes # 0.7 L (1.0-4.8) k/uL Sodium (137-145) mmol/L Potassium (3.5-5.1) mmol/L Chloride (98-107) mmol/L Glucose (74-99) mg/dL POC Glucose (mg/dL) 272 H (75-99) mg/dL Hemoglobin A1c (4.0-6.0) % Uric Acid (3.7-7.4) mg/dL Calcium (8.4-10.2) mg/dL Magnesium 1.1 L (1.6-2.3) mg/dL AST (14-36) U/L Total Protein (6.3-8.2) g/dL Albumin (3.5-5.0) g/dL TSH (0.465-4.680) mIU/L Free T4 (0.78-2.19) ng/dL 08/10/18 08/10/18 08/10/18 Range/Units 16:31 17:22 20:17 RBC (3.80-5.40) m/uL Hgb (11.4-16.0) gm/dL Hct (34.0-46.0) % Lymphocytes # (1.0-4.8) k/uL Sodium 126 L (137-145) mmol/L Potassium (3.5-5.1) mmol/L Chloride (98-107) mmol/L Glucose (74-99) mg/dL POC Glucose (mg/dL) 104 H 215 H (75-99) mg/dL Hemoglobin A1c (4.0-6.0) % Uric Acid (3.7-7.4) mg/dL Calcium (8.4-10.2) mg/dL Magnesium (1.6-2.3) mg/dL AST (14-36) U/L Total Protein (6.3-8.2) g/dL Albumin (3.5-5.0) g/dL TSH (0.465-4.680) mIU/L Free T4 (0.78-2.19) ng/dL Microbiology - Last 24 Hours (Table) 08/09/18 13:14 Blood Culture - Preliminary Blood No Growth after 24 hours 08/09/18 03:36 Urine Culture - Final Urine,Voided 08/09/18 Unknown Gram Stain - Preliminary Leg - Right Wound Culture - Preliminary Microbiology 08/09/18 13:14 Blood Blood Culture - Preliminary No Growth after 24 hours 08/09/18 03:36 Urine,Voided Urine Culture - Final 08/09/18 Unknown Leg - Right Gram Stain - Preliminary 08/09/18 Unknown Leg - Right Wound Culture - Preliminary Assessment and Plan (1) Ulcer of left lower leg Narrative/Plan: 73-year-old female with multiple medical troubles presents to hospital with frequent falls and worsening mental status. Has known hyponatremia and this markedly worsen. Is being seen by nephrology and with fluid restriction goals to improve the very low sodium and hopefully improve her mental and functional status. She had the fall and injury to the left leg with a significant open ulceration failed the suturing process. This posttraumatic ulceration left lateral leg was present on admission. It is a full-thickness ulceration that he has a moderate amount of drainage. It is not very tender. It does not appear to be grossly infected at this time. Local wound care with Optisol silver will be utilized thank you change in a Wednesday protocol. Elevation limb while she is at rest is helpful. Blood and urine cultures are negative so far and cultures in process however the wound does not appear to be grossly infected at this time. Current Visit: Yes Status: Acute Code(s): L97.929 - NON-PRS CHRONIC ULC UNSP PRT OF L LOW LEG W UNSP SEVERITY SNOMED Code(s): 278344608 (2) Hyponatremia Current Visit: Yes Status: Acute Code(s): E87.1 - HYPO-OSMOLALITY AND HYPONATREMIA SNOMED Code(s): 37835654
[2018-08-11] MEDS: MAGNESIUM SULFATE-D5W PMX 1 GM in DEXTROSE/WATER 1 100ML.BAG IVPB SCH ×2 (01:14→05:00)
[2018-08-11 07:37] LABS: Glucose,Whole Blood 137 mg/dL (75-99)
[2018-08-11] MEDS: AMIODARONE 200 MG TAB PO SCH (07:46)
[2018-08-11] MEDS: APIXABAN 5 MG TAB PO SCH ×2 (07:46→20:46)
[2018-08-11] MEDS: LISINOPRIL 20 MG TAB PO SCH (07:46)
[2018-08-11] MEDS: ALPRAZolam 0.25 MG TAB PO SCH ×2 (07:46→20:46)
[2018-08-11] MEDS: METOPROLOL TARTRATE 50 MG TAB PO SCH ×2 (07:46→20:46)
[2018-08-11] MEDS: PANTOPRAZOLE 40 MG TABLET PO SCH (07:46)
[2018-08-11] MEDS: PRIMIDONE 50 MG TAB PO SCH (07:46)
[2018-08-11] MEDS: CALCIUM CARB-VIT D 500MG-200UN 1 EACH TAB PO SCH (07:47)
[2018-08-11] MEDS: THIAMINE 100 MG TAB PO SCH (07:47)
[2018-08-11] MEDS: CARBIDOPA-LEVODOPA 25-100 MG 1 EACH TAB PO SCH ×3 (07:47→20:47)
[2018-08-11] MEDS: VENLAFAXINE HCL ER 75 MG CAP PO SCH (07:47)
[2018-08-11] MEDS: LEVOTHYROXINE 137 MCG TAB PO SCH (07:48)
[2018-08-11] MEDS: Teriparatide [Forteo] 20 MCG SQ SCH (07:48)
[2018-08-11] MEDS: VIT A,C & E-LUTEIN-MINERALS 1 EACH TAB PO SCH (07:48)
[2018-08-11] MEDS: INSULIN ASPART 100 UNIT/ML 1 ML 10 ML VIAL SQ SCH ×4 (07:50→20:45)
[2018-08-11] MEDS: SYMBICORT 160-4.5 MCG INHALER INHALATION SCH ×2 (08:00→20:45)
--- NOTE | 2018-08-11 08:18 | P.PN ---
Subjective Patient is seen in follow-up for hyponatremia. Sodium level was 121 on admission and was up to 126 yesterday evening. She is currently off all IV fluids. Denies any nausea or vomiting. Admits to good urine output. Denies chest pain or shortness of breath. Currently having breakfast. Vital signs are stable. General: The patient appeared well nourished and normally developed. HEENT: Head exam is unremarkable. Neck is without jugular venous distension. LUNGS: Lungs are clear to auscultation and percussion. Breath sounds decreased. HEART: Rate and Rhythm are regular. First and second heart sounds normal. No murmurs, rubs or gallops. ABDOMEN: Abdominal exam reveals normal bowel sounds. Non-tender and non- distended. No evidence of peritonitis. EXTREMITITES: No clubbing, cyanosis, or edema. Objective - Vital Signs Vital signs: Vital Signs Temp 98.1 F 08/11/18 07:00 Pulse 57 L 08/11/18 07:00 Resp 16 08/11/18 07:00 BP 123/58 08/11/18 07:00 Pulse Ox 98 08/11/18 07:00 Intake & Output 08/10/18 08/11/18 08/11/18 18:59 06:59 18:59 Intake Total 1280 Balance 1280 Weight 58.967 kg Intake: Intake, IV Titration 500 Amount Magnesium Sulfate-D5w Pmx 500 1 gm In Dextrose/Water 1 100ml.bag @ 33 mls/hr IVPB Q3H [facility] Rx#: [id number] Oral 780 Other: Voiding Method Bedside Commode Bedside Commode Diaper Diaper # Voids 1 2 - Labs CBC & Chem 7: 08/10/18 07:45 08/10/18 17:22 Labs: Abnormal Lab Results - Last 24 Hours (Table) 08/10/18 08/10/18 08/10/18 Range/Units 07:45 07:45 07:45 RBC 3.19 L (3.80-5.40) m/uL Hgb 10.7 L (11.4-16.0) gm/dL Hct 30.8 L (34.0-46.0) % Lymphocytes # 0.7 L (1.0-4.8) k/uL Sodium 124 L (137-145) mmol/L Potassium 3.3 L (3.5-5.1) mmol/L Chloride 90 L (98-107) mmol/L Glucose 62 L (74-99) mg/dL POC Glucose (mg/dL) (75-99) mg/dL Uric Acid 3.4 L (3.7-7.4) mg/dL Calcium 8.3 L (8.4-10.2) mg/dL Magnesium 1.1 L (1.6-2.3) mg/dL AST 39 H (14-36) U/L Total Protein 5.4 L (6.3-8.2) g/dL Albumin 2.7 L (3.5-5.0) g/dL TSH 0.137 L (0.465-4.680) mIU/L Free T4 3.86 H (0.78-2.19) ng/dL 08/10/18 08/10/18 08/10/18 Range/Units 12:25 16:31 17:22 RBC (3.80-5.40) m/uL Hgb (11.4-16.0) gm/dL Hct (34.0-46.0) % Lymphocytes # (1.0-4.8) k/uL Sodium 126 L (137-145) mmol/L Potassium (3.5-5.1) mmol/L Chloride (98-107) mmol/L Glucose (74-99) mg/dL POC Glucose (mg/dL) 272 H 104 H (75-99) mg/dL Uric Acid (3.7-7.4) mg/dL Calcium (8.4-10.2) mg/dL Magnesium (1.6-2.3) mg/dL AST (14-36) U/L Total Protein (6.3-8.2) g/dL Albumin (3.5-5.0) g/dL TSH (0.465-4.680) mIU/L Free T4 (0.78-2.19) ng/dL 08/10/18 08/11/18 Range/Units 20:17 07:15 RBC (3.80-5.40) m/uL Hgb (11.4-16.0) gm/dL Hct (34.0-46.0) % Lymphocytes # (1.0-4.8) k/uL Sodium (137-145) mmol/L Potassium (3.5-5.1) mmol/L Chloride (98-107) mmol/L Glucose (74-99) mg/dL POC Glucose (mg/dL) 215 H 137 H (75-99) mg/dL Uric Acid (3.7-7.4) mg/dL Calcium (8.4-10.2) mg/dL Magnesium (1.6-2.3) mg/dL AST (14-36) U/L Total Protein (6.3-8.2) g/dL Albumin (3.5-5.0) g/dL TSH (0.465-4.680) mIU/L Free T4 (0.78-2.19) ng/dL Microbiology - Last 24 Hours (Table) 08/09/18 03:36 Urine Culture - Final Urine,Voided 08/09/18 13:14 Blood Culture - Preliminary Blood No Growth after 24 hours 08/09/18 Unknown Gram Stain - Preliminary Leg - Right Wound Culture - Preliminary Assessment and Plan Plan: Assessment: 1. Hyponatremia. Patient does not appear hypovolemic at this time. Partially related to excess fluid intake in the setting of low solute intake. Sodium level 124 this morning. Urine osmolality 432 and urine sodium was 32. No evidence of hypothyroidism. Cortisol level normal. 2. History of COPD. 3. Diastolic CHF. Chest x-ray was suggestive of vascular congestion. 4. Moderate mitral stenosis. 5. Benign hypertension. Better this morning. 6. Hypokalemia from poor oral intake and hypomagnesemia. 7. Hypomagnesemia from poor oral intake status post placement. Plan: Remains off IV fluids. Maintain 1.2 L fluid restriction. Maintain ensure 3 times daily. Add Lasix 20 mg orally once daily. F/u morning labs.
[2018-08-11 08:48] LABS: Basophils % (A) 0 %; Eosinophils # (A) 0.1 k/uL (0-0.7); Eosinophils % (A) 3 %; HCT 35.4 % (34.0-46.0); HGB 11.3 gm/dL (11.4-16.0); Lymphocytes # (A) 0.7 k/uL (1.0-4.8); Lymphocytes % (A) 17 %; MCH 31.9 pg (25.0-35.0); MCHC 31.9 g/dL (31.0-37.0); MCV 100.1 fL (80.0-100.0); Mean Platelet Volume 6.6; Monocytes # (A) 0.4 k/uL (0-1.0); Monocytes % (A) 10 %; Neutrophils # (A) 2.7 k/uL (1.3-7.7); Neutrophils % (A) 67 %; Platelet Count 145 k/uL (150-450); RBC 3.54 m/uL (3.80-5.40); RDW 13.6 % (11.5-15.5)
[2018-08-11 09:12] LABS: Anion Gap 6 mmol/L; Blood Urea Nitrogen 15 mg/dL (7-17); Calcium 8.5 mg/dL (8.4-10.2); Carbon Dioxide 31 mmol/L (22-30); Chloride 91 mmol/L (98-107); Glucose 81 mg/dL (74-99); Magnesium 2.3 mg/dL (1.6-2.3); Potassium 4.2 mmol/L (3.5-5.1); Sodium 128 mmol/L (137-145)
[2018-08-11] MEDS: FUROSEMIDE 20 MG TAB PO SCH (10:34)
[2018-08-11] MEDS: AMMONIUM LACTATE 12% LOTION 225 GM BTL TOPICAL SCH (10:34)
[2018-08-11] MEDS: FERROUS SULFATE 325 MG TAB PO SCH (12:22)
[2018-08-11] MEDS: FOLIC ACID 1 MG TAB PO SCH (12:22)
[2018-08-11] MEDS: MULTIVITAMINS, THERA 1 EACH TAB PO SCH (12:22)
[2018-08-11 12:34] LABS: Glucose,Whole Blood 205 mg/dL (75-99)
--- NOTE | 2018-08-11 15:07 | P.PN ---
Subjective This is a pleasant 73-year-old female past medical history significant for paroxysmal atrial fibrillation, diabetes mellitus, hypertension , dyslipidemia, chronic diastolic heart failure, COPD, sarcoidosis, chronic kidney disease and parkinsons disease. She follows with Dr. Rivera in the office. We have been asked to see her in consultation for heart failure. She is seen sitting up in bed with her in the room. She complains of persistent cough and ongoing shortness of breath. Sodium 128, potassium 4.2, creatinine 0.61, hgb 11.3. Blood pressure 180/79 heart rate 55 afebrile maintaining oxygen saturation on room air. Currently maintained on amiodarone 200 mg daily, Eliquis 5 mg twice a day, atorvastatin 10 mg daily, Lasix 20 mg daily, lisinopril 20 mg daily, Lopressor 50 mg twice a day and potassium supplementation. GENERAL: This is a 73-year-old female in no apparent distress at the time of my examination. Multiple bruises noted on back and arms, dark purple in color. HEENT: Head is atraumatic, normocephalic. Pupils are equal, round. Sclerae anicteric. Conjunctivae are clear. Mucous membranes of the mouth are moist. Neck is supple. There is no jugular venous distention. No carotid bruit is heard. LUNGS: Expiratory wheezes noted throughout. No rales or rhonchi. No chest wall tenderness is noted on palpation or with deep breathing. HEART: Regular rate and rhythm with murmur at the apex, no rubs or gallops. S1 and S2 heard. EXTREMITIES: No evidence of peripheral edema and no calf tenderness noted. Right lower extremity wrapped in gauze, no edema noted on the top of the foot. ASSESSMENT Hyponatremia Hypokalemia Generalized weakness Mild exacerbation of chronic diastolic heart failure, IV lasix given this morning by nephrology. Paroxysmal atrial fibrillation, currently maintaining sinus mechanism. Anticoagulation has been resumed on this admission. Hypertension, uncontrolled on arrival Dyslipidemia Right lower extremity wound secondary to fall in June requiring sutures PLAN Lasix PO has been added by nephrology. Ongoing medical management. We will continue to follow as needed, please feel free to call with further questions of concerns. Follow up with Dr. Rivera upon discharge. Nurse Practitioner note has been reviewed, I agree with a documented findings and plan of care. Patient was seen and examined. Objective - Vital Signs Vital signs: Vital Signs Temp 98.1 F 08/11/18 14:19 Pulse 55 L 08/11/18 14:19 Resp 16 08/11/18 14:19 BP 180/79 08/11/18 14:19 Pulse Ox 99 08/11/18 14:19 Intake & Output 08/10/18 08/11/18 08/11/18 18:59 06:59 18:59 Intake Total 1280 960 Balance 1280 960 Weight 58.967 kg 56.699 kg Intake: Intake, IV Titration 500 Amount Magnesium Sulfate-D5w Pmx 500 1 gm In Dextrose/Water 1 100ml.bag @ 33 mls/hr IVPB Q3H [facility] Rx#: [id number] Oral 780 960 Other: Voiding Method Bedside Commode Bedside Commode Bedside Commode Diaper Diaper Diaper # Voids 1 2 1 - Labs CBC & Chem 7: 08/11/18 08:03 08/11/18 08:03 Labs: Abnormal Lab Results - Last 24 Hours (Table) 08/10/18 08/10/18 08/10/18 Range/Units 07:45 16:31 17:22 RBC (3.80-5.40) m/uL Hgb (11.4-16.0) gm/dL MCV (80.0-100.0) fL Plt Count (150-450) k/uL Lymphocytes # (1.0-4.8) k/uL Sodium 126 L (137-145) mmol/L Chloride (98-107) mmol/L Carbon Dioxide (22-30) mmol/L POC Glucose (mg/dL) 104 H (75-99) mg/dL Free T4 3.86 H (0.78-2.19) ng/dL 08/10/18 08/11/18 08/11/18 Range/Units 20:17 07:15 08:03 RBC 3.54 L (3.80-5.40) m/uL Hgb 11.3 L (11.4-16.0) gm/dL MCV 100.1 H (80.0-100.0) fL Plt Count 145 L (150-450) k/uL Lymphocytes # 0.7 L (1.0-4.8) k/uL Sodium (137-145) mmol/L Chloride (98-107) mmol/L Carbon Dioxide (22-30) mmol/L POC Glucose (mg/dL) 215 H 137 H (75-99) mg/dL Free T4 (0.78-2.19) ng/dL 08/11/18 08/11/18 Range/Units 08:03 12:17 RBC (3.80-5.40) m/uL Hgb (11.4-16.0) gm/dL MCV (80.0-100.0) fL Plt Count (150-450) k/uL Lymphocytes # (1.0-4.8) k/uL Sodium 128 L (137-145) mmol/L Chloride 91 L (98-107) mmol/L Carbon Dioxide 31 H (22-30) mmol/L POC Glucose (mg/dL) 205 H (75-99) mg/dL Free T4 (0.78-2.19) ng/dL Microbiology - Last 24 Hours (Table) 08/09/18 03:36 Urine Culture - Final Urine,Voided 08/09/18 13:14 Blood Culture - Preliminary Blood No Growth after 24 hours
[2018-08-11] MEDS: IPRATROPIUM-ALBUTEROL 3 ML NEB INHALATION PRN ×2 (16:39→20:45)
--- NOTE | 2018-08-11 16:43 | PN ---
PROGRESS NOTE DATE OF SERVICE: 08/11/2018 This 73-year-old woman who was admitted with CHF, acute exacerbation, also had severe hyponatremia, which has improved. The patient also has a significant right leg ulcer which is chronic. Nephrology as well as Cardiology and Infectious Disease are following the patient closely. No chest pain. No palpitations. The sodium has improved to 128 today. The hyponatremia was thought to be hypovolemic. Lower extremity ultrasound is pending at this time. Doppler is pending. Past medical history reviewed. REVIEW OF SYSTEMS: CARDIOVASCULAR SYSTEM: No angina, palpitations. RESPIRATORY SYSTEM: As mentioned earlier. GI: As mentioned earlier. : No dysuria or retention. NERVOUS SYSTEM: No numbness, weakness. CURRENT MEDICATIONS: Reviewed. They include: 1. Tylenol 650 q.8 p.r.n. 2. DuoNeb q.i.d. and p.r.n. 3. Xanax 0.25 b.i.d. 4. Cordarone 200 mg p.o. daily. 5. Eliquis 5 mg p.o. b.i.d. 6. Lipitor 40 mg at bedtime. 7. Symbicort 160/4.5 two puffs b.i.d. 8. Os-Csar with vitamin D. 9. Sinemet 25/100 one p.o. t.i.d. 10.Colace 100 mg p.o. b.i.d. 11.Vitamin D2 50,000 on Wednesday. 12.Iron sulfate 325 mg daily. 13.Folic acid 1 mg daily. 14.Lasix 20 mg daily. 15.Insulin pump on hold at this time. 16.NovoLog. 17.Levemir 7 units subcutaneously at bedtime. 18.Lac-Hydrin. 19.Synthroid 137 mcg p.o. daily. 20.Zestril 20 mg p.o. daily. 21.Claritin. 22.Melatonin. 23.Lopressor 50 mg p.o. b.i.d. 24.Ivite. 25.Narcan. 26.Forteo 20 mcg daily. 27.Ditropan XL. 28.Percocet. 29.Protonix. 30.Mysoline. 31.Risperdal. 32.Effexor XR. PHYSICAL EXAMINATION: Patient is alert, oriented 3. Pulse 55, blood pressure 181/79, respiration 16, temperature 98.1, pulse ox 99% on 2 L. HEENT: Conjunctivae normal. Oral mucosa moist. NECK: No jugular venous distention. No carotid bruit. No lymph node enlargement. CARDIOVASCULAR SYSTEM: S1, S2 muffled. RESPIRATORY SYSTEM: Breath sounds diminished at the bases. A few scattered rhonchi. No crackles. ABDOMEN: Soft, non-tender. No mass palpable. LEGS: Right leg ulcer present. NERVOUS SYSTEM: No focal deficit. LABS: WBC 4, hemoglobin 11.3, sodium 128. ASSESSMENT: 1. Congestive heart failure, acute exacerbation, with acute on chronic diastolic dysfunction, ejection fraction 55% to 60%. 2. Hyponatremia, possibly hypovolemic. 3. Generalized gait dysfunction and falls. 4. Right leg ulcer, chronic. 5. Possible urinary tract infection. 6. Gait dysfunction. 7. Mild protein-calorie malnutrition. 8. Change in mental status, metabolic encephalopathy, multifactorial. 9. Atrial fibrillation. 10.History of asthma. 11.History of congestive heart failure. 12.History of chronic obstructive pulmonary disease. 13.Diabetes mellitus, type 2. 14.Gastroesophageal reflux disease. 15.Hypertension. 16.Hyperlipidemia. 17.History of degenerative joint disease. 18.History of insulin pump. 19.History of ulcerative colitis. 20.History of breast surgery. 21.History of claustrophobia. 22.History of anxiety. 23.History of hypomagnesemia. 24.History of hypokalemia. 25.FULL CODE. RECOMMENDATIONS AND DISCUSSION: I recommend to continue current medication, continue with symptomatic treatment. Otherwise at this time I would recommend continuing with current medications, PT /OT evaluation. Sodium has improved to 128 at this time. Possible ECF rehab. Multiple consultants' notes appreciated. Monitor fluid/electrolyte balance closely. Sodium is slightly improved at this time, but overall prognosis remains guarded. Further recommendations to follow. Discussed with the family at length. MMODL / IJN: [id number] / CRISTÓBAL
[2018-08-11 17:21] LABS: Glucose,Whole Blood 187 mg/dL (75-99)
[2018-08-11] MEDS: Insulin Aspart (For Pump) 100 UNIT/ML VIAL SQ-PUMP SCH (17:37)
[2018-08-11 20:40] LABS: Glucose,Whole Blood 215 mg/dL (75-99)
[2018-08-11] MEDS: OXYBUTYNIN 10 MG TAB.ER.24 PO SCH (20:46)
[2018-08-11] MEDS: ATORVASTATIN 10 MG TAB PO SCH (20:46)
[2018-08-11] MEDS: risperiDONE 0.25 MG TAB PO SCH (20:46)
[2018-08-11] MEDS: INSULIN DETEMIR 100 UNIT/ML 10 ML VIAL SQ SCH (20:46)
[2018-08-11] MEDS: LORATADINE 10 MG TAB PO SCH (20:47)
--- NOTE | 2018-08-11 23:15 | P.PN ---
Subjective Progress Note Date: 08/11/18 73-year-old female known to the service from her many prior hospitalizations and current open ulcerations the left lateral leg. The patient has multiple medical troubles is noted that includes congestive heart failure and chronic kidney disease. She recently has been having difficulties with multiple falls and has been evaluated was found evidence of hyponatremia. It is related that she drinks a significant amount of free water and has been having poor oral intake otherwise. She was seen by nephrology and is thought that she has a normovolemic hyponatremia and she's been placed on a fluid restriction. It is related the patient's mental status has been declining with the hyponatremia. There is no notation of any significant fevers chills or rigors or sweats before her admission. The patient remains a very poor historian. 08/11/2018 reveals the patient to be considerably improved. She is now awake and alert. Relates that she is a [place]. Knows my name as Dr. Pratt, which she was not able to perform yesterday. She relates that she is bored but tired and fatigued. She wants to eat more and wants more water. We discussed that she isn't in need of a fluid restriction because of her hyponatremia. She has significant difficulty understanding this concept. Objective - Vital Signs Vital signs: Vital Signs Temp 99.3 F 08/11/18 19:37 Pulse 68 08/11/18 20:56 Resp 18 08/11/18 19:37 BP 151/66 08/11/18 19:37 Pulse Ox 99 08/11/18 14:19 Intake & Output 08/11/18 08/11/18 08/12/18 06:59 18:59 06:59 Intake Total 1280 960 Balance 1280 960 Weight 56.699 kg Intake: Intake, IV Titration 500 Amount Magnesium Sulfate-D5w Pmx 500 1 gm In Dextrose/Water 1 100ml.bag @ 33 mls/hr IVPB Q3H [facility] Rx#: [id number] Oral 780 960 Other: Voiding Method Bedside Commode Bedside Commode Bedside Commode Diaper Diaper Diaper # Voids 2 1 1 - Exam 73-year-old woman awake alert cognizant HEENT: Anicteric conjunctiva are pink and moist nasal mucosa grossly intact without significant lesions, there is no thrush. Dentition is poor Neck: The neck is supple without significant lymphadenopathy or thyromegaly. Lungs: There is symmetrical air entry with basilar crackles but no amina bronchial sounds are noted Heart: Irregular with an audible S1 and S2 soft S4 no murmur click or rub is noted PMI was nondisplaced Abdomen: Obese, Positive bowel sounds soft and nontender without palpable masses or organomegaly. There was no guarding or rebound. Extremities: The upper extremities have excellent pulses they are symmetric, no significant petechiae or telangiectasia. No splinter hemorrhages were noted. Lower extremities have evidence of some chronic bilateral lower extremity edema. Left leg has evidence of the area of the prior trauma with the open ulceration measuring approximately 4 x 3.5 x 0.2 cm. There is granulation at the base with no surrounding erythema. Does not seem to be tender upon manipulation. Peripheral pulses are easily palpable with good capillary refill Neuro: Awake alert oriented to person place and time, aware that she is a [facility] and that the observer as Dr. Pratt. Significant improvement from yesterday. Does complain of boredom. - Labs CBC & Chem 7: 08/11/18 08:03 08/11/18 08:03 Labs: Abnormal Lab Results - Last 24 Hours (Table) 08/11/18 08/11/18 08/11/18 Range/Units 07:15 08:03 08:03 RBC 3.54 L (3.80-5.40) m/uL Hgb 11.3 L (11.4-16.0) gm/dL MCV 100.1 H (80.0-100.0) fL Plt Count 145 L (150-450) k/uL Lymphocytes # 0.7 L (1.0-4.8) k/uL Sodium 128 L (137-145) mmol/L Chloride 91 L (98-107) mmol/L Carbon Dioxide 31 H (22-30) mmol/L POC Glucose (mg/dL) 137 H (75-99) mg/dL 08/11/18 08/11/18 08/11/18 Range/Units 12:17 17:09 20:29 RBC (3.80-5.40) m/uL Hgb (11.4-16.0) gm/dL MCV (80.0-100.0) fL Plt Count (150-450) k/uL Lymphocytes # (1.0-4.8) k/uL Sodium (137-145) mmol/L Chloride (98-107) mmol/L Carbon Dioxide (22-30) mmol/L POC Glucose (mg/dL) 205 H 187 H 215 H (75-99) mg/dL Microbiology - Last 24 Hours (Table) 08/09/18 Unknown Gram Stain - Final Leg - Right Wound Culture - Final 08/09/18 13:14 Blood Culture - Preliminary Blood No Growth after 48 hours 08/09/18 03:36 Urine Culture - Final Urine,Voided Laboratory Results WBC 4.0 k/uL (3.8-10.6) 08/11/18 08:03 RBC 3.54 m/uL (3.80-5.40) L 08/11/18 08:03 Hgb 11.3 gm/dL (11.4-16.0) L 08/11/18 08:03 Hct 35.4 % (34.0-46.0) 08/11/18 08:03 MCV 100.1 fL (80.0-100.0) H 08/11/18 08:03 MCH 31.9 pg (25.0-35.0) 08/11/18 08:03 MCHC 31.9 g/dL (31.0-37.0) 08/11/18 08:03 RDW 13.6 % (11.5-15.5) 08/11/18 08:03 Plt Count 145 k/uL (150-450) L 08/11/18 08:03 Neutrophils % 67 % 08/11/18 08:03 Lymphocytes % 17 % 08/11/18 08:03 Monocytes % 10 % 08/11/18 08:03 Eosinophils % 3 % 08/11/18 08:03 Basophils % 0 % 08/11/18 08:03 Neutrophils # 2.7 k/uL (1.3-7.7) 08/11/18 08:03 Lymphocytes # 0.7 k/uL (1.0-4.8) L 08/11/18 08:03 Monocytes # 0.4 k/uL (0-1.0) 08/11/18 08:03 Eosinophils # 0.1 k/uL (0-0.7) 08/11/18 08:03 Basophils # 0.0 k/uL (0-0.2) 08/11/18 08:03 PT 12.6 sec (9.0-12.0) H 08/09/18 10:59 INR 1.3 (<1.2) H 08/09/18 10:59 APTT 27.4 sec (22.0-30.0) 08/09/18 10:59 Sodium 128 mmol/L (137-145) L 08/11/18 08:03 Potassium 4.2 mmol/L (3.5-5.1) 08/11/18 08:03 Chloride 91 mmol/L (98-107) L 08/11/18 08:03 Carbon Dioxide 31 mmol/L (22-30) H 08/11/18 08:03 Anion Gap 6 mmol/L 08/11/18 08:03 BUN 15 mg/dL (7-17) 08/11/18 08:03 Creatinine 0.61 mg/dL (0.52-1.04) 08/11/18 08:03 Est GFR (CKD-EPI)AfAm >90 (>60 ml/min/1.73 sqM) 08/11/18 08:03 Est GFR (CKD-EPI)NonAf 89 (>60 ml/min/1.73 sqM) 08/11/18 08:03 Glucose 81 mg/dL (74-99) 08/11/18 08:03 POC Glucose (mg/dL) 215 mg/dL (75-99) H 08/11/18 20:29 POC Glu Vehicle Operator Technician SANDI Tracy Borden 08/11/18 20:[address] Glu mg/dL 131 08/09/18 02:15 Hemoglobin A1c 6.2 % (4.0-6.0) H 08/09/18 02:15 Osmolality 253 mosm/kg (280-301) L 08/09/18 10:59 Plasma Lactic Acid Nam 1.3 mmol/L (0.7-2.0) 08/09/18 02:15 Uric Acid 3.4 mg/dL (3.7-7.4) L 08/10/18 07:45 Calcium 8.5 mg/dL (8.4-10.2) 08/11/18 08:03 Magnesium 2.3 mg/dL (1.6-2.3) 08/11/18 08:03 Total Bilirubin 1.2 mg/dL (0.2-1.3) 08/10/18 07:45 AST 39 U/L (14-36) H 08/10/18 07:45 ALT 27 U/L (9-52) 08/10/18 07:45 Alkaline Phosphatase 83 U/L (38-126) 08/10/18 07:45 Total Creatine Kinase 254 U/L (30-135) H 08/09/18 02:15 CK-MB (CK-2) 3.4 ng/mL (0.0-2.4) H 08/09/18 02:15 CK-MB (CK-2) Rel Index 1.3 08/09/18 02:15 Troponin I 0.015 ng/mL (0.000-0.034) 08/09/18 02:15 NT-Pro-B Natriuret Pep 3750 pg/mL 08/10/18 07:45 Total Protein 5.4 g/dL (6.3-8.2) L 08/10/18 07:45 Albumin 2.7 g/dL (3.5-5.0) L 08/10/18 07:45 TSH 0.137 mIU/L (0.465-4.680) L 08/10/18 07:45 Free T4 3.86 ng/dL (0.78-2.19) H 08/10/18 07:45 Cortisol 8 ug/dL 08/10/18 07:45 Urine Color Yellow 08/09/18 03:36 Urine Appearance Cloudy (Clear) H 08/09/18 03:36 Urine pH 6.0 (5.0-8.0) 08/09/18 03:36 Ur Specific [place] 1.015 (1.001-1.035) 08/09/18 03:36 Urine Protein 1+ (Negative) H 08/09/18 03:36 Urine Glucose (UA) Negative (Negative) 08/09/18 03:36 Urine Ketones Negative (Negative) 08/09/18 03:36 Urine Blood Trace (Negative) H 08/09/18 03:36 Urine Nitrite Negative (Negative) 08/09/18 03:36 Urine Bilirubin Negative (Negative) 08/09/18 03:36 Urine Urobilinogen 4.0 mg/dL (<2.0) 08/09/18 03:36 Ur Leukocyte Esterase Large (Negative) H 08/09/18 03:36 Urine RBC 2 /hpf (0-5) 08/09/18 03:36 Urine WBC 15 /hpf (0-5) H 08/09/18 03:36 Ur Squamous Epith Cells 1 /hpf (0-4) 08/09/18 03:36 Amorphous Sediment Rare /hpf (None) H 08/09/18 03:36 Urine Mucus Rare /hpf (None) H 08/09/18 03:36 Urine Osmolality 432 mosm/kg (50-1400) 08/09/18 Unknown Ur Random Sodium 32 mmol/L 08/09/18 Unknown Microbiology 08/09/18 Unknown Leg - Right Gram Stain - Final 08/09/18 Unknown Leg - Right Wound Culture - Final 08/09/18 13:14 Blood Blood Culture - Preliminary No Growth after 48 hours 08/09/18 03:36 Urine,Voided Urine Culture - Final Assessment and Plan (1) Ulcer of left lower leg Narrative/Plan: 73-year-old female with multiple medical troubles presents to hospital with frequent falls and worsening mental status. Has known hyponatremia and this markedly worsen. Is being seen by nephrology and with fluid restriction goals to improve the very low sodium and hopefully improve her mental and functional status. She had the fall and injury to the left leg with a significant open ulceration failed the suturing process. This posttraumatic ulceration left lateral leg was present on admission. It is a full-thickness ulceration that he has a moderate amount of drainage. It is not very tender. It does not appear to be grossly infected at this time. Local wound care with Optisol silver will be utilized thank you change in a Wednesday protocol. Elevation limb while she is at rest is helpful. Blood and urine cultures are negative so far and cultures in process however the wound does not appear to be grossly infected at this time. 08/11/2018 reveals the patient to be improved from yesterday. Mentation is improved as her sodium is improved. Ulceration of the left leg is stable to improved. We'll continue with the calcium alginate with silver to be changed 3 times a week. Her partner should be going off to extended care to receive further therapy both physical and wound. Hopefully to have stabilization of her metabolic abnormalities Current Visit: Yes Status: Acute Code(s): L97.929 - NON-PRS CHRONIC ULC UNSP PRT OF L LOW LEG W UNSP SEVERITY SNOMED Code(s): 290674779 (2) Hyponatremia Current Visit: Yes Status: Acute Code(s): E87.1 - HYPO-OSMOLALITY AND HYPONATREMIA SNOMED Code(s): 25949512
[2018-08-12 07:21] LABS: Glucose,Whole Blood 208 mg/dL (75-99)
[2018-08-12] MEDS: SYMBICORT 160-4.5 MCG INHALER INHALATION SCH ×2 (07:22→20:44)
[2018-08-12 08:11] LABS: Anisocytosis Slight
[2018-08-12 08:16] LABS: Basophils % (A) 0 %; Eosinophils # (A) 0.1 k/uL (0-0.7); Eosinophils % (A) 3 %; HCT 32.9 % (34.0-46.0); HGB 11.2 gm/dL (11.4-16.0); Lymphocytes # (A) 0.6 k/uL (1.0-4.8); Lymphocytes % (A) 15 %; MCH 33.7 pg (25.0-35.0); MCHC 33.9 g/dL (31.0-37.0); MCV 99.7 fL (80.0-100.0); Mean Platelet Volume 7.4; Monocytes # (A) 0.6 k/uL (0-1.0); Monocytes % (A) 13 %; Neutrophils # (A) 2.8 k/uL (1.3-7.7); Neutrophils % (A) 66 %; Platelet Count 103 k/uL (150-450); RDW 13.7 % (11.5-15.5); WBC 4.2 k/uL (3.8-10.6)
[2018-08-12 09:21] LABS: Anion Gap 3 mmol/L; Blood Urea Nitrogen 19 mg/dL (7-17); Calcium 8.5 mg/dL (8.4-10.2); Carbon Dioxide 31 mmol/L (22-30); Chloride 95 mmol/L (98-107); Glucose 185 mg/dL (74-99); Magnesium 1.4 mg/dL (1.6-2.3); Potassium 4.7 mmol/L (3.5-5.1); Sodium 129 mmol/L (137-145)
--- NOTE | 2018-08-12 09:44 | P.PN ---
Subjective Patient is seen in follow-up for hyponatremia. Sodium level was 121 on admission and was up to 129 today. She is currently off all IV fluids. Denies any nausea or vomiting. Admits to good urine output. Denies chest pain or shortness of breath. Vital signs are stable. General: The patient appeared well nourished and normally developed. HEENT: Head exam is unremarkable. Neck is without jugular venous distension. LUNGS: Lungs are clear to auscultation and percussion. Breath sounds decreased. HEART: Rate and Rhythm are regular. First and second heart sounds normal. No murmurs, rubs or gallops. ABDOMEN: Abdominal exam reveals normal bowel sounds. Non-tender and non- distended. No evidence of peritonitis. EXTREMITITES: No clubbing, cyanosis, or edema. Objective - Vital Signs Vital signs: Vital Signs Temp 98.3 F 08/12/18 07:00 Pulse 58 L 08/12/18 07:00 Resp 16 08/12/18 07:00 BP 132/76 08/12/18 07:00 Pulse Ox 96 08/12/18 07:00 Intake & Output 08/11/18 08/12/18 08/12/18 18:59 06:59 18:59 Intake Total 960 Balance 960 Weight 56.699 kg Intake: Oral 960 Other: Voiding Method Bedside Commode Bedside Commode Diaper Diaper # Voids 1 1 1 - Labs CBC & Chem 7: 08/12/18 06:49 08/12/18 08:51 Labs: Abnormal Lab Results - Last 24 Hours (Table) 08/11/18 08/11/18 08/11/18 Range/Units 12:17 17:09 20:29 RBC (3.80-5.40) m/uL Hgb (11.4-16.0) gm/dL Hct (34.0-46.0) % Plt Count (150-450) k/uL Lymphocytes # (1.0-4.8) k/uL Sodium (137-145) mmol/L Chloride (98-107) mmol/L Carbon Dioxide (22-30) mmol/L BUN (7-17) mg/dL Glucose (74-99) mg/dL POC Glucose (mg/dL) 205 H 187 H 215 H (75-99) mg/dL Magnesium (1.6-2.3) mg/dL 11/30/18 11/30/18 11/30/18 Range/Units 06:49 07:01 08:51 RBC 3.30 L (3.80-5.40) m/uL Hgb 11.2 L (11.4-16.0) gm/dL Hct 32.9 L (34.0-46.0) % Plt Count 103 L (150-450) k/uL Lymphocytes # 0.6 L (1.0-4.8) k/uL Sodium 129 L (137-145) mmol/L Chloride 95 L (98-107) mmol/L Carbon Dioxide 31 H (22-30) mmol/L BUN 19 H (7-17) mg/dL Glucose 185 H (74-99) mg/dL POC Glucose (mg/dL) 208 H (75-99) mg/dL Magnesium 1.4 L (1.6-2.3) mg/dL Microbiology - Last 24 Hours (Table) 08/09/18 Unknown Gram Stain - Final Leg - Right Wound Culture - Final 08/09/18 13:14 Blood Culture - Preliminary Blood No Growth after 48 hours 08/09/18 03:36 Urine Culture - Final Urine,Voided Assessment and Plan Plan: Assessment: 1. Hyponatremia. Partially related to excess fluid intake in the setting of low solute intake. Sodium level 124 this morning. Urine osmolality 432 and urine sodium was 32. No evidence of hypothyroidism. Cortisol level normal. Improving. Sodium level up to 129 this morning. 2. History of COPD. 3. Diastolic CHF. Chest x-ray was suggestive of vascular congestion. 4. Moderate mitral stenosis. 5. Benign hypertension. Controlled. 6. Hypokalemia from poor oral intake and hypomagnesemia. Improved post placement. 7. Hypomagnesemia from poor oral intake status post placement. Magnesium level I.4 this morning. Plan: Remains off IV fluids. Maintain 1.2 L fluid restriction. Maintain ensure 3 times daily. Maintain Lasix 20 mg orally once daily. Replace magnesium. 2 g IV today.
[2018-08-12] MEDS: METOPROLOL TARTRATE 50 MG TAB PO SCH ×2 (10:20→20:58)
[2018-08-12] MEDS: LEVOTHYROXINE 137 MCG TAB PO SCH (10:22)
[2018-08-12] MEDS: VIT A,C & E-LUTEIN-MINERALS 1 EACH TAB PO SCH (10:22)
[2018-08-12] MEDS: CARBIDOPA-LEVODOPA 25-100 MG 1 EACH TAB PO SCH ×3 (10:23→20:58)
[2018-08-12] MEDS: THIAMINE 100 MG TAB PO SCH (10:23)
[2018-08-12] MEDS: LISINOPRIL 20 MG TAB PO SCH (10:23)
[2018-08-12] MEDS: APIXABAN 5 MG TAB PO SCH ×2 (10:23→20:58)
[2018-08-12] MEDS: CALCIUM CARB-VIT D 500MG-200UN 1 EACH TAB PO SCH (10:23)
[2018-08-12] MEDS: ALPRAZolam 0.25 MG TAB PO SCH ×2 (10:23→20:58)
[2018-08-12] MEDS: VENLAFAXINE HCL ER 75 MG CAP PO SCH (10:23)
[2018-08-12] MEDS: FUROSEMIDE 20 MG TAB PO SCH (10:23)
[2018-08-12] MEDS: AMIODARONE 200 MG TAB PO SCH (10:23)
[2018-08-12] MEDS: PANTOPRAZOLE 40 MG TABLET PO SCH (10:23)
[2018-08-12] MEDS: PRIMIDONE 50 MG TAB PO SCH (10:24)
[2018-08-12] MEDS: AMMONIUM LACTATE 12% LOTION 225 GM BTL TOPICAL SCH (10:24)
[2018-08-12] MEDS: INSULIN ASPART 100 UNIT/ML 1 ML 10 ML VIAL SQ SCH ×4 (10:24→20:58)
[2018-08-12] MEDS: Teriparatide [Forteo] 20 MCG SQ SCH (10:25)
[2018-08-12] MEDS: IPRATROPIUM-ALBUTEROL 3 ML NEB INHALATION PRN ×2 (11:08→20:46)
[2018-08-12 12:36] LABS: Glucose,Whole Blood 182 mg/dL (75-99)
[2018-08-12] MEDS: MULTIVITAMINS, THERA 1 EACH TAB PO SCH (13:11)
[2018-08-12] MEDS: FOLIC ACID 1 MG TAB PO SCH (13:11)
[2018-08-12] MEDS: FERROUS SULFATE 325 MG TAB PO SCH (13:11)
[2018-08-12] MEDS: MAGNESIUM SULFATE-D5W PMX 1 GM in DEXTROSE/WATER 1 100ML.BAG IVPB SCH ×2 (13:12→14:22)
--- NOTE | 2018-08-12 16:49 | PN ---
PROGRESS NOTE DATE OF SERVICE: 08/12/2018 This 73-year-old woman who was admitted with CHF acute exacerbation also had hyponatremia. Patient also had change in mental status. Patient has significant right leg ulcer which is long-standing also. No chest pain. No palpitations. No fever. EXAM: Alert and oriented x3. Pulse is 62, blood pressure 135/66, respirations 16, temp 98.2, pulse ox 98% on 3 L. HEENT: Conjunctivae normal. Oral mucosa moist. Neck is no jugular venous distention. No carotid brut. No lymph node enlargement. Cardiovascular: S1, S2 muffled. Respiratory: Breath sounds diminished in the bases. A few rhonchi. No crackles. ABDOMEN: Soft, nontender. No mass. Legs: Right leg ulcer. Central nervous system: No focal deficits. LABORATORY DATA: WBC 4.2, hemoglobin 11.2, sodium 139 and magnesium 1.4. ASSESSMENT: 1. Congestive heart failure acute exacerbation with acute on chronic diastolic dysfunction, ejection fraction 50-60 percent. 2. Hyponatremia, possibly hypovolemic. 3. Generalized gait dysfunction and falls. 4. Right leg ulcer, chronic, rule out pyoderma gangrenosum. 5. Possible urinary tract infection. 6. Gait dysfunction. 7. Mild protein calorie malnutrition. 8. Change in mental status, metabolic encephalopathy multifactorial. 9. Atrial fibrillation. 10.History of asthma. 11.History of congestive heart failure. 12.History of chronic obstructive pulmonary disease. 13.Diabetes type 2. 14.Gastroesophageal reflux disease. 15.Hypertension. 16.Hyperlipidemia. 17.History degenerative joint disease 18.History of ulcerative colitis. 19.History of breast surgery. 20.History of claustrophobia. 21.History of anxiety. 22.Hypomagnesemia. 23.Hypokalemia. 24.FULL CODE. RECOMMENDATIONS AND DISCUSSION: I recommend to continue current management. Continue with monitoring, symptomatic treatment. Sodium is 129 today. The cultures are negative so far. Continue the current medications. PT/OT evaluation, possible ECF rehab. I would also recommend monitor the patient closely. Otherwise the prognosis guarded because of multiple complex medical issues and further recommendations to follow. MMODL / IJN: [id number] / MTDRama
[2018-08-12] MEDS: Insulin Aspart (For Pump) 100 UNIT/ML VIAL SQ-PUMP SCH (16:54)
[2018-08-12 17:28] LABS: Glucose,Whole Blood 217 mg/dL (75-99)
[2018-08-12 20:31] LABS: Glucose,Whole Blood 274 mg/dL (75-99)
[2018-08-12] MEDS: risperiDONE 0.25 MG TAB PO SCH (20:58)
[2018-08-12] MEDS: INSULIN DETEMIR 100 UNIT/ML 10 ML VIAL SQ SCH (20:58)
[2018-08-12] MEDS: ATORVASTATIN 10 MG TAB PO SCH (20:58)
[2018-08-12] MEDS: OXYBUTYNIN 10 MG TAB.ER.24 PO SCH (20:58)
[2018-08-12] MEDS: LORATADINE 10 MG TAB PO SCH (20:58)
[2018-08-13] MEDS: LEVOTHYROXINE 137 MCG TAB PO SCH (06:02)
[2018-08-13 07:14] LABS: Glucose,Whole Blood 101 mg/dL (75-99)
[2018-08-13] MEDS: LISINOPRIL 20 MG TAB PO SCH (09:19)
[2018-08-13] MEDS: CALCIUM CARB-VIT D 500MG-200UN 1 EACH TAB PO SCH (09:19)
[2018-08-13] MEDS: PANTOPRAZOLE 40 MG TABLET PO SCH (09:19)
[2018-08-13] MEDS: APIXABAN 5 MG TAB PO SCH ×2 (09:19→20:37)
[2018-08-13] MEDS: CARBIDOPA-LEVODOPA 25-100 MG 1 EACH TAB PO SCH ×3 (09:19→20:37)
[2018-08-13] MEDS: IPRATROPIUM-ALBUTEROL 3 ML NEB INHALATION PRN (09:19)
[2018-08-13] MEDS: METOPROLOL TARTRATE 50 MG TAB PO SCH ×2 (09:19→20:37)
[2018-08-13] MEDS: SYMBICORT 160-4.5 MCG INHALER INHALATION SCH ×2 (09:19→20:26)
[2018-08-13] MEDS: INSULIN ASPART 100 UNIT/ML 1 ML 10 ML VIAL SQ SCH ×4 (09:19→20:37)
[2018-08-13] MEDS: PRIMIDONE 50 MG TAB PO SCH (09:20)
[2018-08-13] MEDS: VENLAFAXINE HCL ER 75 MG CAP PO SCH (09:20)
[2018-08-13] MEDS: AMIODARONE 200 MG TAB PO SCH (09:20)
[2018-08-13] MEDS: THIAMINE 100 MG TAB PO SCH (09:20)
[2018-08-13] MEDS: VIT A,C & E-LUTEIN-MINERALS 1 EACH TAB PO SCH (09:20)
[2018-08-13] MEDS: FUROSEMIDE 20 MG TAB PO SCH (09:20)
[2018-08-13] MEDS: ALPRAZolam 0.25 MG TAB PO SCH ×2 (09:20→20:37)
[2018-08-13] MEDS: AMMONIUM LACTATE 12% LOTION 225 GM BTL TOPICAL SCH (09:23)
[2018-08-13] MEDS: Teriparatide [Forteo] 20 MCG SQ SCH (09:24)
[2018-08-13 11:24] LABS: Basophils % (A) 0 %; Eosinophils # (A) 0.1 k/uL (0-0.7); Eosinophils % (A) 2 %; HCT 34.9 % (34.0-46.0); HGB 11.2 gm/dL (11.4-16.0); Hypochromasia Slight; Lymphocytes # (A) 0.5 k/uL (1.0-4.8); Lymphocytes % (A) 14 %; MCH 33.5 pg (25.0-35.0); MCHC 32.2 g/dL (31.0-37.0); MCV 104.1 fL (80.0-100.0); Macrocytosis Slight; Mean Platelet Volume 6.6; Monocytes # (A) 0.3 k/uL (0-1.0); Monocytes % (A) 7 %; Neutrophils # (A) 2.7 k/uL (1.3-7.7); Neutrophils % (A) 72 %; Platelet Count 115 k/uL (150-450); RBC 3.35 m/uL (3.80-5.40); RDW 13.1 % (11.5-15.5); WBC 3.7 k/uL (3.8-10.6)
--- NOTE | 2018-08-13 11:43 | P.PN ---
Subjective Progress Note Date: 08/13/18 Principal diagnosis: Patient is a 73-year-old female seen in renal consultation for hyponatremia. Hyponatremia is deemed to be from low intake of proteins and large liquid intake. Workup though has shown low uric acid, normal cortisol and TSH. Her the urine osmolality is 432, urine sodium was 32. 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 Sodium is improved to 129, she is on Lasix 20 mg a day Creatinines remained stable at 0.59 but her BUN went up from 9-15-19 now. She does feel somewhat dizzy. Remains weak and tired and has scant intake of protein. Past history significant for diastolic CHF with moderate mitral stenosis. Chest x-ray revealed small effusions. She has history of asthma and COPD. Does admit to dyspnea and wheezing. Objective - Vital Signs Vital signs: Vital Signs Temp 98.6 F 08/13/18 07:00 Pulse 66 08/13/18 09:30 Resp 24 08/13/18 07:00 BP 165/74 08/13/18 07:00 Pulse Ox 100 08/13/18 07:00 Intake & Output 08/12/18 08/13/18 08/13/18 18:59 06:59 18:59 Intake Total 480 240 Balance 480 240 Weight 54 kg Intake: Oral 480 240 Other: Voiding Method Bedside Commode Diaper Diaper Incontinent # Voids 3 4 On examination she is somewhat sleepy arousable but tends to sit go back to sleep. She looks emaciated and weak and tired HEENT exam no JVP neck is supple no facial asymmetry Lungs are clear to auscultation but air entry is less than optimal. Heart sounds are unremarkable for any murmur rub gallop Abdomen soft nontender no masses felt Extremity exam was no edema There is a dressing on her right leg and patient is not sure why. Neurologically awake arousable but sleepy. Moves all her extremities but generalized - Labs CBC & Chem 7: 08/13/18 09:51 08/12/18 08:51 Labs: Abnormal Lab Results - Last 24 Hours (Table) 08/12/18 08/12/18 08/12/18 Range/Units 12:12 17:17 17:21 WBC (3.8-10.6) k/uL RBC (3.80-5.40) m/uL Hgb (11.4-16.0) gm/dL MCV (80.0-100.0) fL Plt Count (150-450) k/uL Lymphocytes # (1.0-4.8) k/uL ESR 28 H (0-20) mm/hr POC Glucose (mg/dL) 182 H 217 H (75-99) mg/dL 08/12/18 08/13/18 08/13/18 Range/Units 20:19 07:02 09:51 WBC 3.7 L (3.8-10.6) k/uL RBC 3.35 L (3.80-5.40) m/uL Hgb 11.2 L (11.4-16.0) gm/dL MCV 104.1 H (80.0-100.0) fL Plt Count 115 L (150-450) k/uL Lymphocytes # 0.5 L (1.0-4.8) k/uL ESR (0-20) mm/hr POC Glucose (mg/dL) 274 H 101 H (75-99) mg/dL Microbiology - Last 24 Hours (Table) 08/09/18 13:14 Blood Culture - Preliminary Blood No Growth after 72 hours Assessment and Plan Plan: Impression 1. 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 Her protein intake is poor this adding to her hyponatremia. It has been corrected with fluid restriction to 1200 mL and Lasix. Her BUN has gone up he did this may reflect the prerenal state. 2. Extensive workup included serum cortisol and TSH normal uric acid somewhat low and urine osmolality of 432 urine sodium of 32 3. History of COPD on oxygen currently. 4. Diabetes mellitus. Recommendation. 1. Check orthostatic blood pressure and heart rate to ensure she is not hypokalemic no 2. Start protein supplement 1 can 3 times a day, this can be out of the fluid restrictions. 3. Monitor labs.
[2018-08-13 11:44] LABS: Anion Gap 5 mmol/L; Calcium 8.4 mg/dL (8.4-10.2); Carbon Dioxide 33 mmol/L (22-30); Chloride 92 mmol/L (98-107); Glucose 203 mg/dL (74-99); Potassium 4.9 mmol/L (3.5-5.1); Sodium 130 mmol/L (137-145)
[2018-08-13 12:20] LABS: Blood Urea Nitrogen 20 mg/dL (7-17); Magnesium 1.3 mg/dL (1.6-2.3)
[2018-08-13] MEDS: FOLIC ACID 1 MG TAB PO SCH (12:28)
[2018-08-13] MEDS: MULTIVITAMINS, THERA 1 EACH TAB PO SCH (12:28)
[2018-08-13] MEDS: FERROUS SULFATE 325 MG TAB PO SCH (12:28)
[2018-08-13 15:02] LABS: Glucose,Whole Blood 299 mg/dL (75-99)
[2018-08-13 15:02] LABS: Glucose,Whole Blood 400 mg/dL (75-99)
[2018-08-13] MEDS: Insulin Aspart (For Pump) 100 UNIT/ML VIAL SQ-PUMP SCH (16:42)
[2018-08-13 17:01] LABS: Glucose,Whole Blood 245 mg/dL (75-99)
[2018-08-13 19:45] LABS: Glucose,Whole Blood 276 mg/dL (75-99)
[2018-08-13] MEDS: INSULIN DETEMIR 100 UNIT/ML 10 ML VIAL SQ SCH (20:36)
[2018-08-13] MEDS: LORATADINE 10 MG TAB PO SCH (20:37)
[2018-08-13] MEDS: ATORVASTATIN 10 MG TAB PO SCH (20:37)
[2018-08-13] MEDS: OXYBUTYNIN 10 MG TAB.ER.24 PO SCH (20:37)
[2018-08-13] MEDS: risperiDONE 0.25 MG TAB PO SCH (20:37)
--- NOTE | 2018-08-14 00:20 | PN ---
PROGRESS NOTE DATE OF SERVICE: 08/13/2018 This 73-year-old woman was admitted with CHF acute exacerbation also had some weakness and confusion also. No chest pain. No palpitations. No fever. PHYSICAL EXAM: Alert and orient x3. The pulse is 97, blood pressure 113/60, respiratory 20, temperature 98.9, pulse ox 97% on 2 L. HEENT conjunctivae normal. Oral mucosa moist. Neck is no jugular venous distention. No carotid bruit. No lymph nodes enlargement. Cardiovascular system: S1, S2 muffled. RESPIRATORY: Breath sounds diminished in the bases. Bilateral scattered rhonchi and crackles. ABDOMEN: Soft, nontender. No mass palpable. LEGS: No edema. No swelling. Central nervous system: Diffusely weak. LAB STUDIES: At this time shows WBC 3.7, hemoglobin 11.2, platelets 118. Sodium 130. ASSESSMENT: 1. Congestive heart failure, acute exacerbation with acute on chronic diastolic dysfunction, ejection fraction 50-60 percent. 2. Hyponatremia, possibly hypovolemic. 3. Generalized gait dysfunction and falls. 4. Right leg ulcer, chronic. Rule out pyoderma gangrenosum. 5. Possible urinary tract infection. 6. Gait dysfunction. 7. Mild protein calorie malnutrition. 8. Change in mental status, metabolic encephalopathy, multifactorial. 9. Atrial fibrillation. 10.History of asthma. 11.History of congestive heart failure. 12.History of chronic obstructive pulmonary disease. 13.Diabetes mellitus type 2. 14.Gastroesophageal reflux disease. 15.Hypertension. 16.Hyperlipidemia. 17.History of degenerative joint disease. 18.History of ulcerative colitis. 19.History of breast surgery. 20.History of claustrophobia. 21.History of anxiety. 22.History of hypomagnesemia. 23.Hypokalemia. 24.FULL CODE. RECOMMENDATIONS AND DISCUSSION: Recommend to continue current medications, continue to monitor, symptomatic treatment. Otherwise, at this time, I would recommend to monitor fluid and electrolytes balance closely at this time. Repeat labs. PT, OT evaluation, possible ECF rehab. Prognosis guarded because the patient has multiple complex medical issues. Further recommendations to follow. MMODL / IJN: [id number] /
[2018-08-14 07:03] LABS: Glucose,Whole Blood 118 mg/dL (75-99)
[2018-08-14 07:42] LABS: Basophils % (A) 0 %; Eosinophils # (A) 0.1 k/uL (0-0.7); Eosinophils % (A) 3 %; HCT 34.5 % (34.0-46.0); HGB 11.2 gm/dL (11.4-16.0); Lymphocytes # (A) 0.5 k/uL (1.0-4.8); Lymphocytes % (A) 13 %; MCH 32.8 pg (25.0-35.0); MCHC 32.6 g/dL (31.0-37.0); MCV 100.7 fL (80.0-100.0); Mean Platelet Volume 7.2; Monocytes # (A) 0.3 k/uL (0-1.0); Monocytes % (A) 8 %; Neutrophils # (A) 2.9 k/uL (1.3-7.7); Neutrophils % (A) 72 %; Platelet Count 106 k/uL (150-450); RBC 3.43 m/uL (3.80-5.40); RDW 12.9 % (11.5-15.5); WBC 4.1 k/uL (3.8-10.6)
[2018-08-14 07:54] LABS: Anion Gap 6 mmol/L; Blood Urea Nitrogen 22 mg/dL (7-17); Calcium 8.6 mg/dL (8.4-10.2); Carbon Dioxide 36 mmol/L (22-30); Chloride 90 mmol/L (98-107); Glucose 111 mg/dL (74-99); Potassium 4.8 mmol/L (3.5-5.1); Sodium 132 mmol/L (137-145)
[2018-08-14] MEDS: SYMBICORT 160-4.5 MCG INHALER INHALATION SCH ×2 (08:30→20:51)
[2018-08-14] MEDS: INSULIN ASPART 100 UNIT/ML 1 ML 10 ML VIAL SQ SCH ×4 (09:54→21:22)
[2018-08-14] MEDS: ALPRAZolam 0.25 MG TAB PO SCH ×2 (10:21→21:22)
[2018-08-14] MEDS: VENLAFAXINE HCL ER 75 MG CAP PO SCH (10:21)
[2018-08-14] MEDS: PANTOPRAZOLE 40 MG TABLET PO SCH (10:21)
[2018-08-14] MEDS: CARBIDOPA-LEVODOPA 25-100 MG 1 EACH TAB PO SCH ×3 (10:21→21:24)
[2018-08-14] MEDS: AMIODARONE 200 MG TAB PO SCH (10:21)
[2018-08-14] MEDS: VIT A,C & E-LUTEIN-MINERALS 1 EACH TAB PO SCH (10:21)
[2018-08-14] MEDS: LEVOTHYROXINE 137 MCG TAB PO SCH (10:21)
[2018-08-14] MEDS: PRIMIDONE 50 MG TAB PO SCH (10:22)
[2018-08-14] MEDS: CALCIUM CARB-VIT D 500MG-200UN 1 EACH TAB PO SCH (10:22)
[2018-08-14] MEDS: APIXABAN 5 MG TAB PO SCH ×2 (10:22→21:22)
[2018-08-14] MEDS: THIAMINE 100 MG TAB PO SCH (10:22)
[2018-08-14] MEDS: AMMONIUM LACTATE 12% LOTION 225 GM BTL TOPICAL SCH (10:24)
[2018-08-14] MEDS: Teriparatide [Forteo] 20 MCG SQ SCH (10:25)
[2018-08-14] MEDS: METOPROLOL TARTRATE 50 MG TAB PO SCH ×2 (10:27→21:23)
[2018-08-14] MEDS: LISINOPRIL 20 MG TAB PO SCH (10:27)
--- NOTE | 2018-08-14 11:42 | P.PN ---
Subjective Progress Note Date: 08/14/18 Principal diagnosis: Patient is a 73-year-old female seen in renal consultation for hyponatremia. Hyponatremia is deemed to be from low intake of proteins and large liquid intake. Workup though has shown low uric acid, normal cortisol and TSH. Her the urine osmolality is 432, urine sodium was 32. 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 She denies any sob, cough, dizziness, NV or loose stools. appetite is good. Sodium is improved 132 Creatinines remained stable at 0.59 but her BUN went up from 9-15-19 now. She does feel somewhat dizzy. Remains weak and tired and has scant intake of protein. Past history significant for diastolic CHF with moderate mitral stenosis. Chest x-ray revealed small effusions. She has history of asthma and COPD. Does admit to dyspnea and wheezing. Objective - Vital Signs Vital signs: Vital Signs Temp 98.5 F 08/14/18 07:00 Pulse 68 08/14/18 07:00 Resp 24 08/14/18 07:00 BP 157/80 08/14/18 07:00 Pulse Ox 99 08/14/18 07:00 Intake & Output 08/13/18 08/14/18 08/14/18 18:59 06:59 18:59 Intake Total 1080 540 Balance 1080 540 Weight 54.5 kg Intake: Oral 1080 540 Other: Voiding Method Diaper Diaper Incontinent Incontinent # Voids 1 2 She is awake alert oriented comfortable. HEENT exam shows possible ptosis of the right eye. She claims her vision is intact. No JVP lymphadenopathy thyromegaly neck is supple no facial asymmetry otherwise. Lungs are clear to auscultation good air entry bilaterally Heart sounds are unremarkable for any murmur rub gallop Abdomen soft nontender, no masses felt. Extremity exam reveals no edema Neurologically awake alert oriented no focal motor deficit. As mentioned about maybe ptosis of the right. Patient does not know about this - Labs CBC & Chem 7: 08/14/18 06:25 08/14/18 06:25 Labs: Abnormal Lab Results - Last 24 Hours (Table) 08/13/18 08/13/18 08/13/18 Range/Units 09:51 11:24 11:25 RBC (3.80-5.40) m/uL Hgb (11.4-16.0) gm/dL MCV (80.0-100.0) fL Plt Count (150-450) k/uL Lymphocytes # (1.0-4.8) k/uL Sodium 130 L (137-145) mmol/L Chloride 92 L (98-107) mmol/L Carbon Dioxide 33 H (22-30) mmol/L BUN 20 H (7-17) mg/dL Glucose 203 H (74-99) mg/dL POC Glucose (mg/dL) 400 H 299 H (75-99) mg/dL Magnesium 1.3 L (1.6-2.3) mg/dL 08/13/18 08/13/18 08/14/18 Range/Units 16:49 19:44 06:25 RBC 3.43 L (3.80-5.40) m/uL Hgb 11.2 L (11.4-16.0) gm/dL MCV 100.7 H (80.0-100.0) fL Plt Count 106 L (150-450) k/uL Lymphocytes # 0.5 L (1.0-4.8) k/uL Sodium (137-145) mmol/L Chloride (98-107) mmol/L Carbon Dioxide (22-30) mmol/L BUN (7-17) mg/dL Glucose (74-99) mg/dL POC Glucose (mg/dL) 245 H 276 H (75-99) mg/dL Magnesium (1.6-2.3) mg/dL 08/14/18 08/14/18 Range/Units 06:25 06:52 RBC (3.80-5.40) m/uL Hgb (11.4-16.0) gm/dL MCV (80.0-100.0) fL Plt Count (150-450) k/uL Lymphocytes # (1.0-4.8) k/uL Sodium 132 L (137-145) mmol/L Chloride 90 L (98-107) mmol/L Carbon Dioxide 36 H (22-30) mmol/L BUN 22 H (7-17) mg/dL Glucose 111 H (74-99) mg/dL POC Glucose (mg/dL) 118 H (75-99) mg/dL Magnesium (1.6-2.3) mg/dL Microbiology - Last 24 Hours (Table) 08/09/18 13:14 Blood Culture - Preliminary Blood No Growth after 96 hours Assessment and Plan Plan: Impression 1. 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 Her protein intake is poor this adding to her hyponatremia. It has been corrected with fluid restriction to 1200 mL and Lasix. Her BUN has gone up he did this may reflect the prerenal state. Currently she is on protein supplements. Sodium improved to 132 BUN is 22 2. Extensive workup included serum cortisol and TSH normal uric acid somewhat low and urine osmolality of 432 urine sodium of 32 3. History of COPD on oxygen currently. 4. Diabetes mellitus. Recommendation. 1. Check orthostatic blood pressure and heart rate to ensure she is not volume depleted 2. Continue protein supplement 1 can 3 times a day, this can be out of the fluid restrictions. 3. Monitor labs.
[2018-08-14 11:56] LABS: Glucose,Whole Blood 349 mg/dL (75-99)
[2018-08-14] MEDS ORDERED: ERGOCALCIFEROL 50,000 UNIT CAP PO SCH (12:00)
[2018-08-14] MEDS: FERROUS SULFATE 325 MG TAB PO SCH (13:07)
[2018-08-14] MEDS: FOLIC ACID 1 MG TAB PO SCH (13:07)
[2018-08-14] MEDS: MULTIVITAMINS, THERA 1 EACH TAB PO SCH (13:07)
[2018-08-14] MEDS: Insulin Aspart (For Pump) 100 UNIT/ML VIAL SQ-PUMP SCH (15:19)
[2018-08-14 17:30] LABS: Glucose,Whole Blood 316 mg/dL (75-99)
[2018-08-14 20:17] LABS: Glucose,Whole Blood 292 mg/dL (75-99)
--- NOTE | 2018-08-14 20:37 | PN ---
PROGRESS NOTE DATE OF SERVICE: 08/14/2018 DATE OF SERVICE: This 73-year-old woman who was admitted with multiple medical problems had significant hyponatremia. Patient also had difficulty. The patient also refused to eat and refused to take part in some of the activities per family, her . The patient also had CHF also. ECF rehab is being planned at this time. Multiple consultants are following the patient. The patient sodium is improved. EXAM: Alert and oriented x2. Pulse is 65. Blood pressure 151/80, respirations 16, temperature 98.6, pulse ox 93% on 2 L. HEENT: Conjunctivae normal. Neck is no jugular venous distention. Cardiovascular: S1, S2 muffled. Respiratory: Breath sounds diminished in the bases. Bilateral scattered rhonchi and crackles. Abdomen is soft, nontender. Legs are no edema. No swelling. Central nervous system: No focal deficits. LAB STUDIES: WBC 4.1, hemoglobin 11.2, sodium 132. ASSESSMENT: 1. Congestive heart failure acute exacerbation with acute on chronic diastolic dysfunction, ejection fraction 50-60 percent. 2. Hyponatremia, possible hypovolemia. 3. Generalized gait dysfunction and falls. 4. Right leg ulcer, chronic, possibly rule out pyoderma gangrenosum. 5. Possible urinary tract infection. 6. Gait dysfunction. 7. Mild protein calorie malnutrition. 8. Change in mental status, metabolic encephalopathy, multifactorial. 9. Atrial fibrillation. 10.History of asthma. 11.History of congestive heart failure. 12.History of chronic obstructive pulmonary disease. 13.Diabetes type 2. 14.Gastroesophageal reflux disease. 15.Hypertension. 16.Hyperlipidemia. 17.History of degenerative joint disease. 18.History of ulcerative colitis. 19.History of breast surgery. 21.History of anxiety. 22.Hypomagnesemia. 23.Hypokalemia. 24.FULL CODE. RECOMMENDATIONS AND DISCUSSION: Recommend to continue current medication, continue to monitor. Symptomatic treatment. Otherwise at this time I would recommend continue the current treatment, management and possible ECF rehab. Guarded prognosis because of multiple complex medical issues and further recommendations to follow. MMODL / IJN: [id number] / MTDD
[2018-08-14] MEDS: ATORVASTATIN 10 MG TAB PO SCH (21:22)
[2018-08-14] MEDS: LORATADINE 10 MG TAB PO SCH (21:23)
[2018-08-14] MEDS: INSULIN DETEMIR 100 UNIT/ML 10 ML VIAL SQ SCH (21:23)
[2018-08-14] MEDS: OXYBUTYNIN 10 MG TAB.ER.24 PO SCH (21:23)
[2018-08-14] MEDS: risperiDONE 0.25 MG TAB PO SCH (21:24)
[2018-08-15] MEDS: LEVOTHYROXINE 137 MCG TAB PO SCH (06:05)
[2018-08-15 06:55] LABS: Glucose,Whole Blood 98 mg/dL (75-99)
[2018-08-15] MEDS: METOPROLOL TARTRATE 50 MG TAB PO SCH ×2 (06:55→21:37)
[2018-08-15] MEDS: PANTOPRAZOLE 40 MG TABLET PO SCH (06:55)
[2018-08-15] MEDS: PRIMIDONE 50 MG TAB PO SCH (06:56)
[2018-08-15] MEDS: CALCIUM CARB-VIT D 500MG-200UN 1 EACH TAB PO SCH (06:56)
[2018-08-15] MEDS: APIXABAN 5 MG TAB PO SCH ×2 (06:56→21:36)
[2018-08-15] MEDS: ALPRAZolam 0.25 MG TAB PO SCH (06:56)
[2018-08-15] MEDS: VENLAFAXINE HCL ER 75 MG CAP PO SCH (06:56)
[2018-08-15] MEDS: THIAMINE 100 MG TAB PO SCH (06:56)
[2018-08-15] MEDS: LISINOPRIL 20 MG TAB PO SCH (06:56)
[2018-08-15] MEDS: VIT A,C & E-LUTEIN-MINERALS 1 EACH TAB PO SCH (06:57)
[2018-08-15] MEDS: CARBIDOPA-LEVODOPA 25-100 MG 1 EACH TAB PO SCH ×3 (06:57→21:38)
[2018-08-15] MEDS: AMIODARONE 200 MG TAB PO SCH (06:57)
[2018-08-15] MEDS: Teriparatide [Forteo] 20 MCG SQ SCH (06:58)
[2018-08-15] MEDS: AMMONIUM LACTATE 12% LOTION 225 GM BTL TOPICAL SCH (06:58)
[2018-08-15] MEDS: INSULIN ASPART 100 UNIT/ML 1 ML 10 ML VIAL SQ SCH ×4 (08:11→21:36)
[2018-08-15] MEDS: SYMBICORT 160-4.5 MCG INHALER INHALATION SCH ×2 (08:30→18:42)
[2018-08-15 10:06] LABS: HCT 30.7 % (34.0-46.0); HGB 10.4 gm/dL (11.4-16.0); MCV 99.9 fL (80.0-100.0); Mean Platelet Volume 6.9; Platelet Count 104 k/uL (150-450); RBC 3.07 m/uL (3.80-5.40); RDW 12.8 % (11.5-15.5); WBC 4.5 k/uL (3.8-10.6)
[2018-08-15 10:20] LABS: Anion Gap 2 mmol/L; Blood Urea Nitrogen 30 mg/dL (7-17); Calcium 8.3 mg/dL (8.4-10.2); Carbon Dioxide 35 mmol/L (22-30); Chloride 92 mmol/L (98-107); Glucose 157 mg/dL (74-99); Potassium 4.8 mmol/L (3.5-5.1); Sodium 129 mmol/L (137-145)
[2018-08-15 11:54] LABS: Glucose,Whole Blood 197 mg/dL (75-99)
[2018-08-15] MEDS: MULTIVITAMINS, THERA 1 EACH TAB PO SCH (12:00)
[2018-08-15] MEDS: FOLIC ACID 1 MG TAB PO SCH (12:00)
[2018-08-15] MEDS: FERROUS SULFATE 325 MG TAB PO SCH (12:00)
[2018-08-15 13:21] VITALS: BMI 23.8
[2018-08-15] MEDS: Insulin Aspart (For Pump) 100 UNIT/ML VIAL SQ-PUMP SCH (17:09)
[2018-08-15 17:13] LABS: Glucose,Whole Blood 350 mg/dL (75-99)
[2018-08-15] MEDS: IPRATROPIUM-ALBUTEROL 3 ML NEB INHALATION PRN (18:42)
--- NOTE | 2018-08-15 20:20 | PN ---
PROGRESS NOTE DATE OF SERVICE: 08/15/2018 This 73-year-old woman was admitted with CHF acute exacerbation also had hyponatremia. Patient also had diminished p.o. intake and generalized tiredness, weakness, malnutrition also. No chest pain. No palpitations. No fever. PHYSICAL EXAM: Alert and oriented x3. Pulse 58, blood pressure 140/64, respirations 17, temperature 98.8, pulse ox 94% on 3 L. HEENT: Conjunctivae normal. NECK: No jugular venous distention. CARDIOVASCULAR: S1, S2. RESPIRATORY: Breath sounds diminished in the bases. A few scattered rhonchi. ABDOMEN: Soft, nontender. No mass palpable. LEGS: Right leg ulcer. NERVOUS SYSTEM: Diffusely weak. LABS: WBC 4.2, hemoglobin 10.4, sodium 129. ASSESSMENT: 1. Congestive heart failure acute exacerbation with acute on chronic diastolic dysfunction, ejection fraction 50-60 percent, present on admission. 2. Hyponatremia, possibly hypovolemic. 3. Generalized gait dysfunction and falls. 4. Right leg ulcer, chronic, possibly pyoderma gangrenosum. 5. Possible urinary tract infection. 6. Gait dysfunction. 7. Mild protein calorie malnutrition. 8. Change in mental status, metabolic encephalopathy multifactorial. 9. Atrial fibrillation. 10.History of asthma. 11.History of congestive heart failure. 12.History of chronic obstructive pulmonary disease. 13.History of diabetes mellitus type 2. 14.Gastroesophageal reflux disease. 15.Hypertension. 16.Hyperlipidemia. 17.History of degenerative joint disease. 18.History of ulcerative colitis. 19.History of breast surgery. 20.History of anxiety. 21.Hypomagnesemia. 22.Hypokalemia. 23.FULL CODE. RECOMMENDATIONS AND DISCUSSION: I recommend to continue current medications, monitoring and symptomatic treatment. Otherwise at this time I recommend to continue with the current antibiotics. PT, OT evaluation. Otherwise supplements. ECF rehab. Guarded prognosis. Further recommendations to follow. MMODL / IJN: [id number] /
[2018-08-15 20:29] LABS: Glucose,Whole Blood 291 mg/dL (75-99)
[2018-08-15] MEDS: ATORVASTATIN 10 MG TAB PO SCH (21:36)
[2018-08-15] MEDS: INSULIN DETEMIR 100 UNIT/ML 10 ML VIAL SQ SCH (21:37)
[2018-08-15] MEDS: LORATADINE 10 MG TAB PO SCH (21:37)
[2018-08-15] MEDS: risperiDONE 0.25 MG TAB PO SCH (21:38)
[2018-08-15] MEDS: OXYBUTYNIN 10 MG TAB.ER.24 PO SCH (22:26)
[2018-08-16] MEDS: IPRATROPIUM-ALBUTEROL 3 ML NEB INHALATION PRN (00:42)
[2018-08-16] MEDS: LEVOTHYROXINE 137 MCG TAB PO SCH (06:25)
[2018-08-16 06:53] LABS: Glucose,Whole Blood 112 mg/dL (75-99)
[2018-08-16 07:17] VITALS: RESP 16
[2018-08-16] MEDS: SYMBICORT 160-4.5 MCG INHALER INHALATION SCH (08:11)
[2018-08-16] MEDS: INSULIN ASPART 100 UNIT/ML 1 ML 10 ML VIAL SQ SCH ×2 (09:55→12:09)
[2018-08-16] MEDS: Teriparatide [Forteo] 20 MCG SQ SCH (09:56)
[2018-08-16] MEDS: PRIMIDONE 50 MG TAB PO SCH (10:06)
[2018-08-16] MEDS: CARBIDOPA-LEVODOPA 25-100 MG 1 EACH TAB PO SCH (10:06)
[2018-08-16] MEDS: LISINOPRIL 20 MG TAB PO SCH (10:06)
[2018-08-16] MEDS: CALCIUM CARB-VIT D 500MG-200UN 1 EACH TAB PO SCH (10:06)
[2018-08-16] MEDS: AMIODARONE 200 MG TAB PO SCH (10:06)
[2018-08-16] MEDS: APIXABAN 5 MG TAB PO SCH (10:06)
[2018-08-16] MEDS: METOPROLOL TARTRATE 50 MG TAB PO SCH (10:06)
[2018-08-16] MEDS: VIT A,C & E-LUTEIN-MINERALS 1 EACH TAB PO SCH (10:07)
[2018-08-16] MEDS: VENLAFAXINE HCL ER 75 MG CAP PO SCH (10:07)
[2018-08-16] MEDS: PANTOPRAZOLE 40 MG TABLET PO SCH (10:07)
[2018-08-16] MEDS: AMMONIUM LACTATE 12% LOTION 225 GM BTL TOPICAL SCH (10:08)
[2018-08-16] MEDS: FOLIC ACID 1 MG TAB PO SCH (10:10)
[2018-08-16] MEDS: MULTIVITAMINS, THERA 1 EACH TAB PO SCH (10:11)
[2018-08-16] MEDS: FERROUS SULFATE 325 MG TAB PO SCH (10:11)
[2018-08-16] MEDS: THIAMINE 100 MG TAB PO SCH (10:11)
[2018-08-16 12:09] LABS: Glucose,Whole Blood 193 mg/dL (75-99)
[2018-08-16] MEDS: Insulin Aspart (For Pump) 100 UNIT/ML VIAL SQ-PUMP SCH (12:10)
[2018-08-16] MEDS ORDERED: INSULIN ASPART 100 UNIT/ML 1 ML 10 ML VIAL SQ SCH (12:30)
[2018-08-16 14:38] VITALS: BP 121/67; PULSE 54; TEMP 98.1
--- NOTE | 2018-08-16 15:18 | P.DS ---
Providers Date of admission: 08/09/18 04:49 Expected date of discharge: 08/16/18 Attending physician: MD Anshu Vanegas Consults: 08/09/18 10:15 Consult Physician Stat Consulting Provider: Carlos A Ryan Consult Reason/Comments: HYPONATREMIA Do you want consulting provider notified?: Yes 08/09/18 15:41 Consult Physician Routine Consulting Provider: Kt Pratt Consult Reason/Comments: wound right lower leg Do you want consulting provider notified?: Yes 08/09/18 15:52 Consult Physician Routine Consulting Provider: Bernard Rodriguez Consult Reason/Comments: chf Do you want consulting provider notified?: Yes Primary care physician: Maximus Odonnell [facility] Course: Final Diagnoses: -Acute on chronic exacerbation of CHF,Diastolic dysfunction EF 50-60%, present on admission -Hyponatremia, possibly hypovolemic -Generalized gait dysfunction and falls -Chronic leg ulcer, chronic, possibly pyoderma gangrenosum -Possible UTI -Mild protein malnutrition -Change in mental status, metabolic encephalopathy multifactorial -Atrial fibrillation Hospital course: This a 73-year-old female admitted with acute CHF exacerbation , hyponatremia and multiple other medical issues. Evaluated by cardiology, nephrology, and infectious disease. Received diuretics, nebulized bronchodilators, maintained on fluid restrictions and protein supplements. Wound care as per ID. Significant clinical improvement. Patient has been cleared for discharge by all consults. Patient is being discharged to [facility] in a stable condition with guarded prognosis. General: Alert and oriented 3, no acute distress.CV: Regular S1 and S2, LUNGS: Bilateral bases diminished occasional scattered rhonchi.ABD: Soft, nontender positive bowel sounds. NEURO: No focal deficits. The impression and plan of care has been dictated as directed. : I performed a history and examination of this patient, discussed the same with the dictator. I agree with the dictator's note ,documented as a scribe. Any additional findings or plans will be noted. TIme taken: 35 min Patient Condition at Discharge: Stable Plan - Discharge Summary Discharge Rx Participant: No New Discharge Prescriptions: New Acetaminophen Tab [Tylenol] 650 mg PO Q8H PRN tab PRN Reason: Mild Pain Apixaban [Eliquis] 5 mg PO BID tab Ipratropium-Albuterol Nebulize [Duoneb 0.5 mg-3 mg/3 ml Soln] 3 ml INHALATION RT-QID PRN ampul.neb PRN Reason: Shortness Of Breath Or Wheezing Ipratropium-Albuterol Nebulize [Duoneb 0.5 mg-3 mg/3 ml Soln] 3 ml INHALATION Q4H PRN ampul.neb PRN Reason: Shortness Of Breath Or Wheezing Folic Acid 1 mg PO DAILY@1200 tab oxyCODONE-APAP 5-325MG [Percocet 5-325 mg] 0.5 tab PO TID PRN #5 tab PRN Reason: Pain risperiDONE [RisperDAL] 0.125 mg PO HS #0 tab INSULIN LISPRO (HumaLOG) [humaLOG] 0 unit SQ ACHS #1 vial Continue Metoprolol Tartrate [Lopressor] 50 mg PO BID Carbidopa-Levodopa 25-100 mg [Sinemet 25-100 mg] 1 tab PO TID Multivitamins, Thera [Multivitamin (formulary)] 1 tab PO DAILY Levothyroxine Sodium 137 mcg PO DAILY Primidone [Mysoline] 50 mg PO DAILY Venlafaxine HCl ER [Effexor XR] 75 mg PO DAILY Thiamine HCl [Vitamin B-1] 100 mg PO DAILY Quinapril HCl [Accupril] 20 mg PO DAILY Lansoprazole 30 mg PO DAILY Ergocalciferol [Vitamin D2 (DRISDOL)] 50,000 unit PO ROSA Ferrous Sulfate [Iron] 325 mg PO DAILY Docusate [Colace] 100 mg PO BID PRN PRN Reason: Constipation Levocetirizine Dihydrochloride [Xyzal] 5 mg PO HS Teriparatide [Forteo] 20 mcg SQ DAILY Vit C/E/Zn/Coppr/Lutein/Zeaxan [Preservision Areds 2 Softgel] 1 tab PO DAILY Fluticasone/Salmeterol [Advair 500-50 Diskus] 1 inhalation PO RT-BID Amiodarone HCl [Pacerone] 200 mg PO DAILY Melatonin 3 mg PO HS PRN PRN Reason: Insomnia Atorvastatin Calcium [Lipitor] 10 mg PO HS Calcium Carb/Vitamin D3/Vit K1 [Citracal Soft Chew] 1 tab PO DAILY Ammonium Lactate Lotion [Lac-Hydrin 12% Lotion] 1 applic TOPICAL DAILY Tolterodine Tartrate [Detrol LA] 4 mg PO HS Insulin Detemir [Levemir] 7 unit SQ HS Insulin Aspart (For Pump) [NovoLOG (For Pump)] 0.01 unit SQ-PUMP CONTINUOUS Discontinued ALPRAZolam [Xanax] 0.25 mg PO BID Temazepam 30 mg PO HS PRN PRN Reason: Insomnia Albuterol Nebulized [Ventolin Nebulized] 2.5 mg PO RT-QID Acetaminophen [Tylenol 8 Hour] 650 mg PO Q8H oxyCODONE-APAP 7.5-325MG [Percocet 7.5-325 mg] 1 tab PO DAILY PRN PRN Reason: Pain Discharge Medication List Metoprolol Tartrate [Lopressor] 50 mg PO BID 08/18/15 [History] Carbidopa-Levodopa 25-100 mg [Sinemet 25-100 mg] 1 tab PO TID 01/15/16 [History] Levothyroxine Sodium 137 mcg PO DAILY 04/28/18 [History] Multivitamins, Thera [Multivitamin (formulary)] 1 tab PO DAILY 04/28/18 [History ] Amiodarone HCl [Pacerone] 200 mg PO DAILY 08/09/18 [History] Ammonium Lactate Lotion [Lac-Hydrin 12% Lotion] 1 applic TOPICAL DAILY 08/09/18 [History] Atorvastatin Calcium [Lipitor] 10 mg PO HS 08/09/18 [History] Calcium Carb/Vitamin D3/Vit K1 [Citracal Soft Chew] 1 tab PO DAILY 08/09/18 [ History] Docusate [Colace] 100 mg PO BID PRN 08/09/18 [History] Ergocalciferol [Vitamin D2 (DRISDOL)] 50,000 unit PO ROSA 08/09/18 [History] Ferrous Sulfate [Iron] 325 mg PO DAILY 08/09/18 [History] Fluticasone/Salmeterol [Advair 500-50 Diskus] 1 inhalation PO RT-BID 08/09/18 [ History] Insulin Aspart (For Pump) [NovoLOG (For Pump)] 0.01 unit SQ-PUMP CONTINUOUS [History] Insulin Detemir [Levemir] 7 unit SQ HS 08/09/18 [History] Lansoprazole 30 mg PO DAILY 08/09/18 [History] Levocetirizine Dihydrochloride [Xyzal] 5 mg PO HS 08/09/18 [History] Melatonin 3 mg PO HS PRN 08/09/18 [History] Primidone [Mysoline] 50 mg PO DAILY 08/09/18 [History] Quinapril HCl [Accupril] 20 mg PO DAILY 08/09/18 [History] Teriparatide [Forteo] 20 mcg SQ DAILY 08/09/18 [History] Thiamine HCl [Vitamin B-1] 100 mg PO DAILY 08/09/18 [History] Tolterodine Tartrate [Detrol LA] 4 mg PO HS 08/09/18 [History] Venlafaxine HCl ER [Effexor XR] 75 mg PO DAILY 08/09/18 [History] Vit C/E/Zn/Coppr/Lutein/Zeaxan [Preservision Areds 2 Softgel] 1 tab PO DAILY [History] Acetaminophen Tab [Tylenol] 650 mg PO Q8H PRN tab 08/16/18 [Rx] Apixaban [Eliquis] 5 mg PO BID tab 08/16/18 [Rx] Folic Acid 1 mg PO DAILY@1200 tab 08/16/18 [Rx] INSULIN LISPRO (HumaLOG) [humaLOG] 0 unit SQ ACHS #1 vial 08/16/18 [Rx] Ipratropium-Albuterol Nebulize [Duoneb 0.5 mg-3 mg/3 ml Soln] 3 ml INHALATION Q4H PRN ampul.neb 08/16/18 [Rx] Ipratropium-Albuterol Nebulize [Duoneb 0.5 mg-3 mg/3 ml Soln] 3 ml INHALATION RT -QID PRN ampul.neb 08/16/18 [Rx] oxyCODONE-APAP 5-325MG [Percocet 5-325 mg] 0.5 tab PO TID PRN #5 tab 08/16/18 [ Rx] risperiDONE [RisperDAL] 0.125 mg PO HS #0 tab 08/16/18 [Rx] Follow up Appointment(s)/Referral(s): Phillip Peña MD [STAFF PHYSICIAN] - 3 Days (At [facility]) Maximus Odonnell III, MD [Primary Care Provider] - 1-2 days Activity/Diet/Wound Care/Special Instructions: [facility] WOund care as per ID Diet: Consistent carb, 1200 mL fluid restriction Protein supplements 3 times a day between meals cbc,bmp in 3 days Activity as tolerated Discharge Disposition: TRANSFER TO SNF/ECF
--- NOTE | 2018-08-16 21:33 | PN ---
PROGRESS NOTE Patient is seen for followup for hyponatremia. Her serum sodium was 129 yesterday. It has been fluctuating at about 130-132. When patient was seen this morning she was sleeping. She was easily arousable. Not in any acute distress. She denied any significant complaints. EXAMINATION: This morning, blood pressure was 136/67, heart rate of about 55 per minute. Patient is afebrile. Examination of the heart S1, S2. Examination of lungs bilateral breath sounds are heard. Abdomen is soft, nontender. Examination of lower extremities shows edema 1+ bilaterally. Extremities are wrapped. LAB: Show sodium 129, potassium 4.8, BUN 30, serum creatinine 0.64. ASSESSMENT: 1. Hyponatremia, currently mildly hypervolemic not on any diuretics, maintained on fluid restriction. The patient had received a few doses of Lasix. She continues to have significant edema. We will need to monitor serum sodium as outpatient with continued use of loop diuretics depending on volume status. Continue with fluid restriction as well. 2. History of chronic obstructive pulmonary disease. 3. Type 2 diabetes. PLAN: Maintain with protein intake. Monitor serum sodium as outpatient and use loop diuretics depending on volume status and sodium level. MMODL / IJN: [id number] /
--- NOTE | 2018-08-17 12:55 | P.ARTDOP ---
Arterial Doppler LOWER EXTREMITY ARTERIAL DOPPLER: DATE OF SERVICE: 08/10/2018 Reason for study: Right leg ulcer. Doppler waveforms: Multiphasic bilaterally throughout.. Pulse volume recording: Normal configuration. Pressure gradients: None. Ankle-brachial indices: Greater than 1 bilaterally. Toe pressures: 95 on the right, 135 on the left Impression: Normal study.
== END 2018-08-16 15:00 | DRG 291 ==
LOC: EC 01:40 → 4SSUR 04:49
PROVIDERS: ADMIT Internal Medicine; ATTEND Internal Medicine
PROC: B44FZZZ Ultrasonography of Right Lower Extremity Arteries (ICD-10-PCS; principal; 2018-08-10)
DX: I13.0 Hypertensive heart and chronic kidney disease with heart failure and stage 1 through stage 4 chronic kidney disease, or unspecified chronic kidney disease (principal); I50.33 Acute on chronic diastolic (congestive) heart failure; G93.41 Metabolic encephalopathy; E22.2 Syndrome of inappropriate secretion of antidiuretic hormone; I45.2 Bifascicular block; L97.912 Non-pressure chronic ulcer of unspecified part of right lower leg with fat layer exposed; E44.1 Mild protein-calorie malnutrition; K51.90 Ulcerative colitis, unspecified, without complications; L88 Pyoderma gangrenosum; E11.22 Type 2 diabetes mellitus with diabetic chronic kidney disease; E11.40 Type 2 diabetes mellitus with diabetic neuropathy, unspecified; I08.1 Rheumatic disorders of both mitral and tricuspid valves; E11.622 Type 2 diabetes mellitus with other skin ulcer; G20 Parkinson's disease; I27.20 Pulmonary hypertension, unspecified; J44.9 Chronic obstructive pulmonary disease, unspecified; I69.398 Other sequelae of cerebral infarction; I48.0 Paroxysmal atrial fibrillation; H54.8 Legal blindness, as defined in USA; R40.2362 Coma scale, best motor response, obeys commands, at arrival to emergency department; R40.2142 Coma scale, eyes open, spontaneous, at arrival to emergency department; R40.2252 Coma scale, best verbal response, oriented, at arrival to emergency department; E83.42 Hypomagnesemia; E03.9 Hypothyroidism, unspecified; Z91.81 History of falling; N18.9 Chronic kidney disease, unspecified; E87.6 Hypokalemia; D86.0 Sarcoidosis of lung; M85.80 Other specified disorders of bone density and structure, unspecified site; R26.9 Unspecified abnormalities of gait and mobility; R29.6 Repeated falls; K21.9 Gastro-esophageal reflux disease without esophagitis; E78.5 Hyperlipidemia, unspecified; M19.90 Unspecified osteoarthritis, unspecified site; H35.30 Unspecified macular degeneration; F40.240 Claustrophobia; Z79.4 Long term (current) use of insulin; Z68.24 Body mass index [BMI] 24.0-24.9, adult; Z79.890 Hormone replacement therapy; Z79.51 Long term (current) use of inhaled steroids; Z79.899 Other long term (current) drug therapy; Z85.819 Personal history of malignant neoplasm of unspecified site of lip, oral cavity, and pharynx; Z96.41 Presence of insulin pump (external) (internal); Z86.14 Personal history of Methicillin resistant Staphylococcus aureus infection; Z98.891 History of uterine scar from previous surgery; Z90.710 Acquired absence of both cervix and uterus; Z90.49 Acquired absence of other specified parts of digestive tract; Z87.81 Personal history of (healed) traumatic fracture; Z86.19 Personal history of other infectious and parasitic diseases; Z85.828 Personal history of other malignant neoplasm of skin; Z98.42 Cataract extraction status, left eye; Z98.41 Cataract extraction status, right eye; Z96.1 Presence of intraocular lens; Z87.01 Personal history of pneumonia (recurrent); Z88.1 Allergy status to other antibiotic agents; Z88.5 Allergy status to narcotic agent; Z88.0 Allergy status to penicillin; Z88.2 Allergy status to sulfonamides; Z88.8 Allergy status to other drugs, medicaments and biological substances; Z80.42 Family history of malignant neoplasm of prostate; Z80.1 Family history of malignant neoplasm of trachea, bronchus and lung; Z81.2 Family history of tobacco abuse and dependence
CPT/HCPCS: 36415; 70450; 71046; 80048; 80053; 81001; 82533; 82550; 82553; 83036; 83605; 83735; 83880; 83930; 83935; 84295; 84300; 84439; 84443; 84484; 84550; 85025; 85027; 85610; 85652; 85730; 86140; 87040; 87070; 87086; 87205; 93005; 93923; 94640; 94760; 96374; 99285

== ENCOUNTER 2018-09-12 13:54 | Inpatient (IN) | payer MEDICARE, BC ==
--- NOTE | 2018-09-12 14:55 | ED ---
General Adult HPI - General Chief complaint: Recheck/Abnormal Lab/Rx Stated complaint: Abnormal labs Time Seen by Provider: 09/12/18 14:02 Source: patient, EMS, RN notes reviewed, old records reviewed Mode of arrival: EMS Limitations: no limitations - History of Present Illness Initial comments: 73-year-old female [facility] evaluation of hyponatremia and pleural effusion. Patient has no complaints. Patient does have some mild dyspnea which is at her baseline. She has history of heart failure, Parkinson's, previous history of hyponatremia. Denies fever or chills. Denies chest pain. Denies abdominal pain. Denies nausea vomiting. Patient has wound to the right lower extremity which is being followed at the wound clinic. - Related Data Home Medications Medication Instructions Recorded Confirmed Metoprolol Tartrate [Lopressor] 50 mg PO BID 08/18/15 08/31/18 Carbidopa-Levodopa 25-100 mg 1 tab PO TID 01/15/16 08/31/18 [Sinemet 25-100 mg] Levothyroxine Sodium 137 mcg PO DAILY 04/28/18 08/31/18 Multivitamins, Thera [Multivitamin 1 tab PO DAILY 04/28/18 08/31/18 (formulary)] Amiodarone HCl [Pacerone] 200 mg PO DAILY 08/09/18 08/31/18 Ammonium Lactate Lotion 1 applic TOPICAL DAILY 08/09/18 08/31/18 [Lac-Hydrin 12% Lotion] Atorvastatin Calcium [Lipitor] 10 mg PO HS 08/09/18 08/31/18 Calcium Carb/Vitamin D3/Vit K1 1 tab PO DAILY 08/09/18 08/31/18 [Citracal Soft Chew] Docusate [Colace] 100 mg PO BID PRN 08/09/18 08/31/18 Ergocalciferol [Vitamin D2 50,000 unit PO ROSA 08/09/18 08/31/18 (DRISDOL)] Ferrous Sulfate [Iron] 325 mg PO DAILY 08/09/18 08/31/18 Fluticasone/Salmeterol [Advair 1 inhalation PO RT-BID 08/09/18 08/31/18 500-50 Diskus] Insulin Aspart (For Pump) [NovoLOG 0.01 unit SQ-PUMP CONTINUOUS 08/09/18 (For Pump)] Insulin Detemir [Levemir] 7 unit SQ HS 08/09/18 08/31/18 Lansoprazole 30 mg PO DAILY 08/09/18 08/31/18 Levocetirizine Dihydrochloride 5 mg PO HS 08/09/18 08/31/18 [Xyzal] Melatonin 3 mg PO HS PRN 08/09/18 08/31/18 Primidone [Mysoline] 50 mg PO DAILY 08/09/18 08/31/18 Quinapril HCl [Accupril] 20 mg PO DAILY 08/09/18 08/31/18 Teriparatide [Forteo] 20 mcg SQ DAILY 08/09/18 08/31/18 Thiamine HCl [Vitamin B-1] 100 mg PO DAILY 08/09/18 08/31/18 Tolterodine Tartrate [Detrol LA] 4 mg PO HS 08/09/18 08/31/18 Venlafaxine HCl ER [Effexor XR] 75 mg PO DAILY 08/09/18 08/31/18 Vit C/E/Zn/Coppr/Lutein/Zeaxan 1 tab PO DAILY 08/09/18 08/31/18 [Preservision Areds 2 Softgel] Codeine Phosphate/Guaifenesin 10 ml PO QID 08/24/18 08/31/18 [Guaifen-Codeine 100-10 mg/5 ml] Fluticasone/Salmeterol [Advair 1 inhalation PO BID 08/24/18 08/31/18 500-50 Diskus] risperiDONE [RisperDAL] 0.25 mg PO HS 08/24/18 08/31/18 Previous Rx's Medication Instructions Recorded Acetaminophen Tab [Tylenol] 650 mg PO Q8H PRN tab 08/16/18 Apixaban [Eliquis] 5 mg PO BID tab 08/16/18 Folic Acid 1 mg PO DAILY@1200 tab 08/16/18 INSULIN LISPRO (HumaLOG) [humaLOG] 0 unit SQ ACHS #1 vial 08/16/18 Ipratropium-Albuterol Nebulize 3 ml INHALATION Q4H PRN ampul.neb 08/16/18 [Duoneb 0.5 mg-3 mg/3 ml Soln] Ipratropium-Albuterol Nebulize 3 ml INHALATION RT-QID PRN 08/16/18 [Duoneb 0.5 mg-3 mg/3 ml Soln] ampul.neb oxyCODONE-APAP 5-325MG [Percocet 0.5 tab PO TID PRN #5 tab 08/16/18 5-325 mg] Allergies Allergy/AdvReac Type Severity Reaction Status Date / Time cefdinir Allergy Severe Swelling Verified 08/24/18 15:34 Cephalosporins Allergy Unknown Verified 08/24/18 15:34 doxycycline Allergy Nausea & Verified 08/24/18 15:34 Vomiting erythromycin base Allergy Nausea & Verified 08/24/18 15:34 Vomiting & Diarrhea/RASH Penicillins Allergy Rash/Hives Verified 08/24/18 15:34 azithromycin AdvReac Nausea & Verified 08/24/18 15:34 Vomiting codeine AdvReac Unknown Verified 08/24/18 15:34 hydrochlorothiazide AdvReac Nausea & Verified 08/24/18 15:34 [From Dyazide] Vomiting levofloxacin [From Levaquin] AdvReac Abdominal Verified 08/24/18 15:34 Pain moxifloxacin HCl AdvReac Unknown Verified 08/24/18 15:34 [From Avelox] sulfamethoxazole AdvReac Nausea & Verified 08/24/18 15:34 [From Bactrim] Vomiting & Diarrhea triamterene [From Dyazide] AdvReac Nausea & Verified 08/24/18 15:34 Vomiting trimethoprim [From Bactrim] AdvReac Unknown Verified 08/24/18 15:34 Review of Systems ROS Statement: Those systems with pertinent positive or pertinent negative responses have been documented in the HPI. ROS Other: All systems not noted in ROS Statement are negative. 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 Past Anesthesia/Blood Transfusion Reactions: No Reported Reaction Additional Past Anesthesia/Blood Transfusion Reaction / Comment(s): CLAUSTERPHOBIA Past Psychological History: Anxiety Smoking Status: Never smoker Past Alcohol Use History: None Reported Past Drug Use History: None Reported - Past Family History Father Family Medical History: Cancer, Prostate Disorder Additional Family Medical History / Comment(s): PROSTATE CA, HERNIA SX BACK SX Mother Family Medical History: Cancer Additional Family Medical History / Comment(s): Mother is . Mother had lung cancer. She was a smoker. General Exam Limitations: no limitations General appearance: alert, in no apparent distress Head exam: Present: atraumatic, normocephalic Eye exam: Present: normal appearance, PERRL ENT exam: Present: normal exam Neck exam: Present: normal inspection. Absent: tenderness, meningismus Respiratory exam: Present: wheezes, decreased breath sounds. Absent: respiratory distress Cardiovascular Exam: Present: regular rate, normal rhythm GI/Abdominal exam: Present: soft. Absent: distended Extremities exam: Present: normal capillary refill (Right lower extremity, bandage from the knee to the foot. No tenderness to palpation.). Absent: normal inspection Neurological exam: Present: alert, CN II-XII intact. Absent: motor sensory deficit Psychiatric exam: Present: normal affect, normal mood Skin exam: Present: warm, dry, intact. Absent: cyanosis, diaphoretic Course Vital Signs 09/12/18 09/12/18 09/12/18 14:03 15:16 15:50 Temperature 98.5 F Pulse Rate 56 L 51 L 54 L Respiratory 18 120 H 18 Rate Blood Pressure 192/96 199/91 185/118 O2 Sat by Pulse 92 L 97 100 Oximetry EKG Findings - EKG Comments: EKG Findings:: EKG: Sinus bradycardia with sinus arrhythmia, right bundle branch block, left anterior fascicular block, rate of 52, KS interval 178, QRS duration 152, QTC 448 Medical Decision Making - Medical Decision Making 73-year-old female presenting for evaluation of hyponatremia and left-sided pleural effusion. Laboratory studies repeated in the emergency department, patient has sodium 119 which is down trending from previous. Magnesium low 1.1 which is replaced. Chest x-ray does show over vascular congestion and left- sided pleural effusion. He was discussed with admitting physician, will admit. - Lab Data Result diagrams: 09/12/18 14:50 09/12/18 14:50 Lab Results 09/12/18 09/12/18 09/12/18 Range/Units 14:50 14:50 14:50 WBC 5.7 (3.8-10.6) k/uL RBC 3.66 L (3.80-5.40) m/uL Hgb 11.8 (11.4-16.0) gm/dL Hct 35.0 (34.0-46.0) % MCV 95.7 (80.0-100.0) fL MCH 32.3 (25.0-35.0) pg MCHC 33.7 (31.0-37.0) g/dL RDW 13.7 (11.5-15.5) % Plt Count 129 L (150-450) k/uL Neutrophils % 78 % Lymphocytes % 9 % Monocytes % 7 % Eosinophils % 3 % Basophils % 0 % Neutrophils # 4.4 (1.3-7.7) k/uL Lymphocytes # 0.5 L (1.0-4.8) k/uL Monocytes # 0.4 (0-1.0) k/uL Eosinophils # 0.2 (0-0.7) k/uL Basophils # 0.0 (0-0.2) k/uL PT (9.0-12.0) sec INR (<1.2) APTT (22.0-30.0) sec Sodium 119 L* (137-145) mmol/L Potassium 4.9 (3.5-5.1) mmol/L Chloride 82 L (98-107) mmol/L Carbon Dioxide 29 (22-30) mmol/L Anion Gap 8 mmol/L BUN 12 (7-17) mg/dL Creatinine 0.46 L (0.52-1.04) mg/dL Est GFR (CKD-EPI)AfAm >90 (>60 ml/min/1.73 sqM) Est GFR (CKD-EPI)NonAf >90 (>60 ml/min/1.73 sqM) Glucose 222 H (74-99) mg/dL Calcium 8.5 (8.4-10.2) mg/dL Magnesium 1.1 L (1.6-2.3) mg/dL Total Bilirubin 1.1 (0.2-1.3) mg/dL AST 38 H (14-36) U/L ALT 13 (9-52) U/L Alkaline Phosphatase 83 (38-126) U/L Total Creatine Kinase 64 (30-135) U/L CK-MB (CK-2) 1.3 (0.0-2.4) ng/mL CK-MB (CK-2) Rel Index 2.0 Troponin I <0.012 (0.000-0.034) ng/mL Total Protein 6.2 L (6.3-8.2) g/dL Albumin 3.3 L (3.5-5.0) g/dL 09/12/18 Range/Units 14:50 WBC (3.8-10.6) k/uL RBC (3.80-5.40) m/uL Hgb (11.4-16.0) gm/dL Hct (34.0-46.0) % MCV (80.0-100.0) fL MCH (25.0-35.0) pg MCHC (31.0-37.0) g/dL RDW (11.5-15.5) % Plt Count (150-450) k/uL Neutrophils % % Lymphocytes % % Monocytes % % Eosinophils % % Basophils % % Neutrophils # (1.3-7.7) k/uL Lymphocytes # (1.0-4.8) k/uL Monocytes # (0-1.0) k/uL Eosinophils # (0-0.7) k/uL Basophils # (0-0.2) k/uL PT 13.1 H (9.0-12.0) sec INR 1.3 H (<1.2) APTT 32.8 H (22.0-30.0) sec Sodium (137-145) mmol/L Potassium (3.5-5.1) mmol/L Chloride (98-107) mmol/L Carbon Dioxide (22-30) mmol/L Anion Gap mmol/L BUN (7-17) mg/dL Creatinine (0.52-1.04) mg/dL Est GFR (CKD-EPI)AfAm (>60 ml/min/1.73 sqM) Est GFR (CKD-EPI)NonAf (>60 ml/min/1.73 sqM) Glucose (74-99) mg/dL Calcium (8.4-10.2) mg/dL Magnesium (1.6-2.3) mg/dL Total Bilirubin (0.2-1.3) mg/dL AST (14-36) U/L ALT (9-52) U/L Alkaline Phosphatase (38-126) U/L Total Creatine Kinase (30-135) U/L CK-MB (CK-2) (0.0-2.4) ng/mL CK-MB (CK-2) Rel Index Troponin I (0.000-0.034) ng/mL Total Protein (6.3-8.2) g/dL Albumin (3.5-5.0) g/dL Disposition Clinical Impression: Hyponatremia, CHF (congestive heart failure) Disposition: ADMITTED IP TO THIS [facility] Condition: Stable Is patient prescribed a controlled substance at d/c from ED?: No Referrals: Maximus Odonnell III, MD [Primary Care Provider] - 1-2 days Decision to Admit Reason: Admit from EC Decision Date: 09/12/18 Decision Time: 16:30
[2018-09-12 15:06] LABS: Basophils % (A) 0 %; Eosinophils # (A) 0.2 k/uL (0-0.7); Eosinophils % (A) 3 %; HGB 11.8 gm/dL (11.4-16.0); Lymphocytes # (A) 0.5 k/uL (1.0-4.8); Lymphocytes % (A) 9 %; MCH 32.3 pg (25.0-35.0); MCHC 33.7 g/dL (31.0-37.0); MCV 95.7 fL (80.0-100.0); Mean Platelet Volume 6.6; Monocytes # (A) 0.4 k/uL (0-1.0); Monocytes % (A) 7 %; Neutrophils # (A) 4.4 k/uL (1.3-7.7); Neutrophils % (A) 78 %; Platelet Count 129 k/uL (150-450); RBC 3.66 m/uL (3.80-5.40); RDW 13.7 % (11.5-15.5); WBC 5.7 k/uL (3.8-10.6)
[2018-09-12 15:17] LABS: Creatine Kinase 64 U/L (30-135); INR 1.3 (<1.2); Partial Thromboplastin Time 32.8 sec (22.0-30.0); Prothrombin Time 13.1 sec (9.0-12.0)
[2018-09-12] MEDS ORDERED: hydrALAZINE HCL 20 MG/ML 1 ML VIAL IVP STA (15:19)
--- NOTE | 2018-09-12 15:22 | XR ---
EXAMINATION TYPE: XR chest 2V DATE OF EXAM: 09/12/2018 COMPARISON: 08/09/2018 HISTORY: 73 year-old female shortness of breath, difficulty breathing TECHNIQUE: AP and lateral views FINDINGS: Heart mildly enlarged. Diffuse interstitial and vascular prominence. [id number] left pleural e ffusion with adjacent opacity. Possible underlying calcified hilar lymph nodes which can be seen with prior granulomatous disease. IMPRESSION: 1. Cardiomegaly and interstitial changes. Correlate for CHF with pulmonary vascular congestion/early interstitial edema. 2. [id number] left pleural effusion with adjacent atelectasis and/or consolidation.
[2018-09-12 15:24] LABS: Albumin 3.3 g/dL (3.5-5.0); Chloride 82 mmol/L (98-107); Glucose 222 mg/dL (74-99); Potassium 4.9 mmol/L (3.5-5.1); Total Protein 6.2 g/dL (6.3-8.2)
[2018-09-12 15:25] LABS: ALT 13 U/L (9-52); AST 38 U/L (14-36); Alkaline Phosphatase 83 U/L (38-126); Anion Gap 8 mmol/L; Blood Urea Nitrogen 12 mg/dL (7-17); Calcium 8.5 mg/dL (8.4-10.2); Carbon Dioxide 29 mmol/L (22-30); Magnesium 1.1 mg/dL (1.6-2.3); Total Bilirubin 1.1 mg/dL (0.2-1.3)
[2018-09-12 15:31] LABS: Creatine Kinase MB 1.3 ng/mL (0.0-2.4); Troponin I <0.012 ng/mL (0.000-0.034)
[2018-09-12 15:35] LABS: Sodium 119 mmol/L (137-145)
[2018-09-12] MEDS ORDERED: SODIUM CHLORIDE 0.9% 1,000 ML IV SCH (15:45)
[2018-09-12] MEDS ORDERED: SODIUM CHLORIDE 0.9% 1,000 ML IV STA (16:16)
[2018-09-12] MEDS ORDERED: NALOXONE 0.4 MG/ML 1 ML VIAL IV PRN (16:26)
[2018-09-12 17:39] LABS: Glucose,Whole Blood 274 mg/dL (75-99)
[2018-09-12] MEDS ORDERED: DOCUSATE 100 MG CAP PO PRN (17:49)
[2018-09-12] MEDS ORDERED: MAGNESIUM HYDROXIDE 2,400 MG/10 ML CUP PO PRN (17:49)
[2018-09-12] MEDS ORDERED: BISACODYL 10 MG SUPP RECTAL PRN (17:49)
[2018-09-12] MEDS ORDERED: oxyCODONE-APAP 5-325MG 1 EACH TAB PO PRN (17:49)
[2018-09-12] MEDS: MAGNESIUM SULFATE-D5W PMX 1 GM in DEXTROSE/WATER 1 100ML.BAG IVPB SCH ×2 (18:58→21:24)
[2018-09-12] MEDS: SYMBICORT 160-4.5 MCG INHALER INHALATION SCH (19:09)
[2018-09-12] MEDS: IPRATROPIUM-ALBUTEROL 3 ML NEB INHALATION PRN (19:09)
[2018-09-12 21:09] LABS: Glucose,Whole Blood 246 mg/dL (75-99)
[2018-09-12] MEDS: guaiFENesin-Coden 100-10MG/5ML 10 ML CUP PO SCH ×2 (21:23→21:27)
[2018-09-12] MEDS: ATORVASTATIN 10 MG TAB PO SCH (21:23)
[2018-09-12] MEDS: MELATONIN 3 MG TABLET PO PRN (21:23)
[2018-09-12] MEDS: LORATADINE 10 MG TAB PO SCH (21:24)
[2018-09-12] MEDS: OXYBUTYNIN 10 MG TAB.ER.24 PO SCH (21:24)
[2018-09-12] MEDS: INSULIN DETEMIR 100 UNIT/ML 10 ML VIAL SQ SCH (21:24)
[2018-09-12] MEDS: APIXABAN 5 MG TAB PO SCH (21:24)
[2018-09-12] MEDS: CARBIDOPA-LEVODOPA 25-100 MG 1 EACH TAB PO SCH (21:24)
[2018-09-12] MEDS: METOPROLOL TARTRATE 50 MG TAB PO SCH (21:24)
[2018-09-12] MEDS: INSULIN ASPART 100 UNIT/ML 1 ML 10 ML VIAL SQ SCH (21:27)
--- NOTE | 2018-09-12 23:49 | HP ---
HISTORY AND PHYSICAL DATE OF SERVICE: 09/12/2018 CHIEF COMPLAINT: Hyponatremia, weakness, shortness of breath. HISTORY OF PRESENT ILLNESS: This 73-year-old woman with a past medical history of multiple medical problems including atrial fibrillation, asthma, CHF, COPD, diabetes mellitus, GERD, hypertension, hyperlipidemia, history of renal disease, respiratory disorder, being followed by Dr. Odonnell in the outpatient setting, currently a resident of [facility] at this time. The patient was noted to have severe hyponatremia and also had shortness of breath. The patient was taken to [facility] for further evaluation and treatment. Chest x-ray showed some CHF and WBC 5.2, hemoglobin 11.8, INR is 1.2 , sodium is 119. There is no history of fevers or rigors. No headache, loss of consciousness, seizures. PAST MEDICAL HISTORY: History of CHF, atrial fibrillation, history of chronic diastolic dysfunction, COPD, diabetes type 2, history of GERD, hypertension, hyperlipidemia, history of musculoskeletal disorder. MEDICATIONS: Prior to admission home medications are: 1. Oxycodone 5 mg t.i.d. p.r.n. 2. Vitamin C p.o. daily. 3. Effexor XR 75 mg p.o. daily. 4. Detrol XL 4 mg p.o. at bedtime. 5. Vitamin B1, 100 mg p.o. 7. Accupril 20 mg b.i.d. 8. Mysoline 50 mg p.o. daily. 9. Multivitamins 1 p.o. daily. 10.Mineral oil daily. 11.Lopressor 50 mg p.o. b.i.d. 12.Melatonin 3 mg at bedtime p.r.n. 13.Milk of magnesia 1.2 grams p.r.n. 14.Levothyroxine 137 mcg p.o. daily. 16.Lansoprazole 30 mg p.o. daily. 17.DuoNeb q.i.d. p.r.n. 18.Levemir 70 units subcu at bedtime. 19.Humalog with meals and at bedtime. 20.Folic acid 20 mg p.o. daily. 21.Advair 500/50 one puff b.i.d. 22.Iron sulfate 320 mg p.o. daily. 23.Drisdol 50,000 p.o. Wednesday. 24.Colace 100 mg p.o. daily. 25.Codeine q.i.d. p.r.n. 26.Carbidopa levodopa 100 one p.o. t.i.d. 27.Citracal 1 p.o. daily. 28.Dulcolax 10 mg daily p.r.n. 29.Lipitor 10 mg at bedtime. 30.Eliquis 5 mg p.o. b.i.d. 31.Lac-Hydrin topically daily. 32.Pacerone 200 mg. 33.Tylenol 650 q.i.d. p.r.n. ALLERGIES: Multiple allergies including CEFTIN, CEPHALOSPORINS, DOXYCYCLINE, ERYTHROMYCIN, PENICILLIN, ZITHROMAX, CODEINE, DYAZIDE, LEVAQUIN, AVELOX, BACTRIM. FAMILY HISTORY: History of prostate disorder in the family. SOCIAL HISTORY: No history of smoking, no alcohol. REVIEW OF SYSTEMS: ENT: NO diminished hearing or diminished vision. CARDIOVASCULAR: No angina. RESPIRATORY: As mentioned earlier. GI: As mentioned. : As mentioned. NERVOUS SYSTEM: Diffusely weak. ALLERGY/IMMUNOLOGY: No hayfever. MUSCULOSKELETAL: As mentioned earlier. HEMATOLOGY/ONCOLOGY: No history of anemia. ENDOCRINE: As mentioned. CONSTITUTIONAL: As mentioned. PSYCHIATRY: As mentioned. PHYSICAL EXAMINATION: Alert, oriented x2. Pulse 78, blood pressure is 167/74, respirations 16, temperature 98.4, pulse ox 97% on 2 L. HEENT: Conjunctivae normal. Oral mucosa moist. NECK: No jugular venous distention. CARDIOVASCULAR: S1 and S2 muffled. RESPIRATORY: Breaths sounds diminished at the bases. A few scattered rhonchi and crackles. ABDOMEN: Soft, nontender. No mass. LEGS: Bilateral leg edema. Right leg ulcer also present. NERVOUS SYSTEM: Higher functions as mentioned. Moves all limbs equally. No focal motor deficits. Mild diffuse weakness. LYMPHATICS: No rashes. Skin ulcer on the right leg. JOINTS: No active arthropathy. LABS: WBC 5.2, hemoglobin 11.8, INR is 1.3. Sodium is 119, glucose noted. ASSESSMENT: 1. Severe hyponatremia for evaluation possibly hypovolemic hyponatremia. Rule out SIADH. 2. Possible congestive heart failure acute exacerbation. 3. Mild thrombocytopenia. 4. History of atrial fibrillation. 5. History of asthma. 6. History of COPD. 7. History of congestive heart failure with chronic diastolic dysfunction. 8. Diabetes mellitus type 2. 9. Gastroesophageal reflux disease. 10.Hyperlipidemia. 11.Hypertension. 12.History of degenerative joint disease. 13.History of renal disease. 14.Hypothyroidism. 15.Right lower extremity chronic ulcer. 16.Diabetes mellitus type 2, on insulin pump. 17.History of bronchitis. 18.History of legal blindness. 19.Gait dysfunction. 20.Irritable bowel syndrome. 21.Mild to moderate protein calorie malnutrition. 22.Claustrophobia. 23.Anxiety. RECOMMENDATIONS AND DISCUSSION: This 73-year-old woman who presented with multiple complex medical issues, at this time I recommend to continue current medical management and continue symptomatic treatment. Continue with home medication. Monitor fluid and electrolytes closely. Hold diuretics for now. We will consult Cardiology and Pulmonology as well as some Dr. Simmons. Overall prognosis guarded because of multiple complex medical issues. Further recommendations to follow. No exact etiology of hyponatremia at this time. The patient did have hyponatremia during the previous admissions. The Eliquis also will be continued. Once again, the prognosis is guarded because of multiple medical issues. Further recommendations to follow. MMODL / IJN: [id number] / [id number]
[2018-09-13] MEDS: IPRATROPIUM-ALBUTEROL 3 ML NEB INHALATION PRN ×5 (00:22→20:48)
[2018-09-13 06:20] LABS: Glucose,Whole Blood 103 mg/dL (75-99)
[2018-09-13] MEDS: INSULIN ASPART 100 UNIT/ML 1 ML 10 ML VIAL SQ SCH ×4 (06:25→21:05)
[2018-09-13] MEDS: PANTOPRAZOLE 40 MG TABLET PO SCH (06:25)
[2018-09-13] MEDS: LEVOTHYROXINE 137 MCG TAB PO SCH (06:25)
[2018-09-13 06:52] LABS: Basophils % (A) 0 %; Eosinophils # (A) 0.1 k/uL (0-0.7); Eosinophils % (A) 3 %; HCT 29.9 % (34.0-46.0); HGB 10.2 gm/dL (11.4-16.0); Lymphocytes # (A) 0.5 k/uL (1.0-4.8); Lymphocytes % (A) 10 %; MCH 32.7 pg (25.0-35.0); MCV 96.2 fL (80.0-100.0); Mean Platelet Volume 6.7; Monocytes # (A) 0.5 k/uL (0-1.0); Monocytes % (A) 8 %; Neutrophils % (A) 75 %; Platelet Count 121 k/uL (150-450); RBC 3.11 m/uL (3.80-5.40); RDW 13.8 % (11.5-15.5); WBC 5.3 k/uL (3.8-10.6)
[2018-09-13 07:16] LABS: ALT 15 U/L (9-52); AST 37 U/L (14-36); Alkaline Phosphatase 81 U/L (38-126); Anion Gap 7 mmol/L; Blood Urea Nitrogen 12 mg/dL (7-17); Calcium 8.3 mg/dL (8.4-10.2); Carbon Dioxide 27 mmol/L (22-30); Chloride 86 mmol/L (98-107); Glucose 98 mg/dL (74-99); Magnesium 1.5 mg/dL (1.6-2.3); Potassium 4.4 mmol/L (3.5-5.1); Sodium 120 mmol/L (137-145); Total Bilirubin 1.1 mg/dL (0.2-1.3); Total Protein 5.7 g/dL (6.3-8.2)
[2018-09-13] MEDS ORDERED: INSULIN ASPART 100 UNIT/ML 1 ML 10 ML VIAL SQ SCH (07:30)
[2018-09-13] MEDS: SYMBICORT 160-4.5 MCG INHALER INHALATION SCH ×2 (08:06→20:48)
[2018-09-13] MEDS ORDERED: Magnesium Replacement Protocol 1 EACH MISC MISCELLANE PRN (08:11)
[2018-09-13] MEDS ORDERED: NON-FORMULARY DRUG (Teriparatide [Forteo] 20 MCG) SQ SCH (09:00)
--- NOTE | 2018-09-13 09:22 | P.NPCON ---
History of Present Illness - Reason for Consult hyponatremia - History of Present Illness Reason for consultation: Hyponatremia History of present is: Patient is a 73-year-old female seen in renal consultation for hyponatremia. Patient's sodium level was 119 on admission and she was started on normal saline at 50 mL an hour. It is up to 120 this morning. Patient presented to the hospital with dyspnea. No vomiting or diarrhea. Oral intake is fair. No history of renal failure. Admits to good urine output. No hematuria or dysuria. Chest x-ray was adjusted of pulmonary vascular congestion. No evidence of hypotension. Her blood pressure was actually high on admission. Denies use of NSAIDs. I don't see any diuretics at home medications. Denies excess fluid intake. Patient has history of diastolic CHF. She also has history of insulin-dependent diabetes mellitus. Blood sugars are controlled. Vital signs are stable. General: The patient appeared well nourished and normally developed. HEENT: Head exam is unremarkable. Neck is without jugular venous distension. LUNGS: Breath sounds decreased. HEART: Rate and Rhythm are regular. First and second heart sounds normal. No murmurs, rubs or gallops. ABDOMEN: Abdominal exam reveals normal bowel sounds. Non-tender and non- distended. No evidence of peritonitis. EXTREMITITES: No clubbing, cyanosis, or edema. 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 History of Any Multi-Drug Resistant Organisms: VRE Date of last positivie culture/infection: 08/18/13 [facility] MDRO Source:: Urine Past Surgical History: Appendectomy, Breast Surgery, Section, Cholecystectomy, Hysterectomy, Orthopedic Surgery Additional Past Surgical History / Comment(s): Debridements R lower leg, L side tongue benign lesion, 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, R shoulder fracture with surgical repair, L elbow ORIF hardware since removed, L hand fracture with surgical repair, bilateral breast benign bxs and reductions, D&C, EGD, colonoscopies, hemorrhoidectomy, bilateral cataract removals with lens implants. Past Anesthesia/Blood Transfusion Reactions: No Reported Reaction Additional Past Anesthesia/Blood Transfusion Reaction / Comment(s): CLAUSTERPHOBIA Past Psychological History: Anxiety Smoking Status: Never smoker Past Alcohol Use History: None Reported Additional Past Alcohol Use History / Comment(s): Patient is a lifelong nonsmoker. She denies any medical marijuana, marijuana, street drug or alcohol use at this time. Patient does have a history of heavy alcohol use and quit 12 years ago. She is currently on Social Security. She is currently at [facility] for rehab r/t falls/weakness, but otherwise lives at home with her . There are no pets in the home. And she has had no recent travel. Past Drug Use History: None Reported - Past Family History Father Family Medical History: Cancer, Prostate Disorder Additional Family Medical History / Comment(s): PROSTATE CA, HERNIA SX BACK SX Mother Family Medical History: Cancer Additional Family Medical History / Comment(s): Mother is . Mother had lung cancer. She was a smoker. Medications and Allergies Home Medications Medication Instructions Recorded Confirmed Type Metoprolol Tartrate [Lopressor] 50 mg PO BID 08/18/15 09/12/18 History Carbidopa-Levodopa 25-100 mg 1 tab PO TID 01/15/16 09/12/18 History [Sinemet 25-100 mg] Levothyroxine Sodium 137 mcg PO DAILY 04/28/18 09/12/18 History Multivitamins, Thera [Multivitamin 1 tab PO DAILY 04/28/18 09/12/18 History (formulary)] Amiodarone HCl [Pacerone] 200 mg PO DAILY 08/09/18 09/12/18 History Ammonium Lactate Lotion 1 applic TOPICAL DAILY 08/09/18 09/12/18 History [Lac-Hydrin 12% Lotion] Atorvastatin Calcium [Lipitor] 10 mg PO HS@2100 08/09/18 09/12/18 History Calcium Carb/Vitamin D3/Vit K1 1 tab PO DAILY@1700 08/09/18 09/12/18 History [Citracal Soft Chew] Docusate [Colace] 100 mg PO BID PRN 08/09/18 09/12/18 History Ergocalciferol [Vitamin D2 50,000 unit PO ROSA 08/09/18 09/12/18 History (DRISDOL)] Ferrous Sulfate [Iron] 325 mg PO DAILY 08/09/18 09/12/18 History Fluticasone/Salmeterol [Advair 1 inhalation PO RT-BID 08/09/18 09/12/18 History 500-50 Diskus] Insulin Detemir [Levemir] 7 unit SQ HS 08/09/18 09/12/18 History Lansoprazole 30 mg PO DAILY@0600 08/09/18 09/12/18 History Levocetirizine Dihydrochloride 5 mg PO HS 08/09/18 09/12/18 History [Xyzal] Melatonin 3 mg PO HS PRN 08/09/18 09/12/18 History Primidone [Mysoline] 50 mg PO DAILY 08/09/18 09/12/18 History Quinapril HCl [Accupril] 20 mg PO DAILY 08/09/18 09/12/18 History Teriparatide [Forteo] 20 mcg SQ DAILY 08/09/18 09/12/18 History Thiamine HCl [Vitamin B-1] 100 mg PO DAILY 08/09/18 09/12/18 History Tolterodine Tartrate [Detrol LA] 4 mg PO HS@2100 08/09/18 09/12/18 History Venlafaxine HCl ER [Effexor XR] 75 mg PO DAILY 08/09/18 09/12/18 History Vit C/E/Zn/Coppr/Lutein/Zeaxan 1 tab PO DAILY 08/09/18 09/12/18 History [Preservision Areds 2 Softgel] Acetaminophen Tab [Tylenol] 650 mg PO Q8H PRN tab 08/16/18 09/12/18 Rx Apixaban [Eliquis] 5 mg PO BID tab 08/16/18 09/12/18 Rx Ipratropium-Albuterol Nebulize 3 ml INHALATION RT-QID PRN 08/16/18 09/12/18 Rx [Duoneb 0.5 mg-3 mg/3 ml Soln] ampul.neb oxyCODONE-APAP 5-325MG [Percocet 0.5 tab PO TID PRN #5 tab 08/16/18 09/12/18 Rx 5-325 mg] Codeine Phosphate/Guaifenesin 10 ml PO QID 08/24/18 09/12/18 History [Guaifen-Codeine 100-10 mg/5 ml] Bisacodyl [Dulcolax] 10 mg RECTAL DAILY PRN 09/12/18 09/12/18 History Folic Acid 1 mg PO DAILY@1700 09/12/18 09/12/18 History INSULIN LISPRO (HumaLOG) [humaLOG] 0 unit SQ ACHS 09/12/18 09/12/18 History Magnesium Hydroxide [Milk of 1,200 mg PO DIRECTED PRN 09/12/18 09/12/18 History Magnesia] Mineral Oil [Fleet Mineral Oil] 133 ml RECTAL DIRECTED PRN 09/12/18 09/12/18 History Teriparatide [Forteo] 20 mcg SQ DAILY@0800 09/12/18 09/12/18 History Allergies Allergy/AdvReac Type Severity Reaction Status Date / Time cefdinir Allergy Severe Swelling Verified 09/12/18 16:45 Cephalosporins Allergy Unknown Verified 09/12/18 16:45 doxycycline Allergy Nausea & Verified 09/12/18 16:45 Vomiting erythromycin base Allergy Nausea & Verified 09/12/18 16:45 Vomiting & Diarrhea/RASH Penicillins Allergy Rash/Hives Verified 09/12/18 16:45 azithromycin AdvReac Nausea & Verified 09/12/18 16:45 Vomiting codeine AdvReac Unknown Verified 09/12/18 16:45 hydrochlorothiazide AdvReac Nausea & Verified 09/12/18 16:45 [From Dyazide] Vomiting levofloxacin [From Levaquin] AdvReac Abdominal Verified 09/12/18 16:45 Pain moxifloxacin HCl AdvReac Unknown Verified 09/12/18 16:45 [From Avelox] sulfamethoxazole AdvReac Nausea & Verified 09/12/18 16:45 [From Bactrim] Vomiting & Diarrhea triamterene [From Dyazide] AdvReac Nausea & Verified 09/12/18 16:45 Vomiting trimethoprim [From Bactrim] AdvReac Unknown Verified 09/12/18 16:45 Physical Exam Vitals: Vital Signs Temp Pulse Pulse Resp BP BP Pulse Ox 09/13/18 03:39 53 L 16 124/75 96 09/13/18 03:13 51 L 18 09/13/18 00:32 76 09/13/18 00:22 76 09/13/18 00:00 53 L 18 128/65 97 09/12/18 19:55 56 L 18 167/78 97 09/12/18 19:28 98.5 F 78 15 167/74 97 09/12/18 19:21 78 15 09/12/18 19:13 76 18 09/12/18 17:03 98.2 F 57 L 16 166/64 98 09/12/18 16:55 56 L 18 167/74 97 09/12/18 15:50 54 L 18 185/118 100 09/12/18 15:16 51 L 120 H 199/91 97 09/12/18 14:03 98.5 F 56 L 18 192/96 92 L Intake and Output 09/12/18 09/13/18 09/13/18 22:59 06:59 14:59 Intake Total 200 Balance 200 Intake: Oral 200 Other: Voiding Method Diaper # Voids 1 Weight 56.9 kg Results - Lab Results Most recent lab results Calcium 8.3 mg/dL (8.4-10.2) L 09/13/18 06:21 Magnesium 1.5 mg/dL (1.6-2.3) L 09/13/18 06:21 09/13/18 06:21 09/13/18 06:21 Assessment and Plan Plan: Assessment: 1. Hyponatremia. Patient appears slightly hypervolemic at this time. Also component of poor solute intake. Sodium level 119 on admission with slight improvement with IV fluids. Sodium level 120 this morning. 2. Diastolic CHF. 3. Volume overload with pulmonary vascular congestion. 4. Hypomagnesemia from poor oral intake. 5. Benign hypertension. Currently controlled. 6. Insulin-dependent diabetes mellitus. Plan: Hep-Lock IV fluids. Add 1.2 L fluid restriction. Encouraged oral intake, particularly protein intake. Add ensure 3 times daily. Check TSH. Check urine osmolality, urine sodium and serum osmolality. Add Lasix 20 mg IV twice daily. Magnesium being replaced. Repeat sodium level this evening. Thank you for the consultation. I will continue to follow this patient with you during her hospital stay.
[2018-09-13] MEDS: MAGNESIUM SULFATE-D5W PMX 1 GM in DEXTROSE/WATER 1 100ML.BAG IVPB SCH ×2 (10:26→13:47)
[2018-09-13] MEDS: AMIODARONE 200 MG TAB PO SCH (10:27)
[2018-09-13] MEDS: APIXABAN 5 MG TAB PO SCH ×2 (10:27→21:05)
[2018-09-13] MEDS: guaiFENesin-Coden 100-10MG/5ML 10 ML CUP PO SCH ×4 (10:27→21:05)
[2018-09-13] MEDS: LISINOPRIL 20 MG TAB PO SCH (10:27)
[2018-09-13] MEDS: AMMONIUM LACTATE 12% LOTION 225 GM BTL TOPICAL SCH (10:27)
[2018-09-13] MEDS: METOPROLOL TARTRATE 50 MG TAB PO SCH ×2 (10:27→21:05)
[2018-09-13] MEDS: PRIMIDONE 50 MG TAB PO SCH (10:27)
[2018-09-13] MEDS: CARBIDOPA-LEVODOPA 25-100 MG 1 EACH TAB PO SCH ×3 (10:27→21:05)
[2018-09-13] MEDS: FUROSEMIDE 10 MG/ML 2 ML VIAL IV SCH ×2 (10:31→21:05)
[2018-09-13 11:30] LABS: Glucose,Whole Blood 189 mg/dL (75-99)
[2018-09-13] MEDS: TERIPARATIDE 20 MCG SQ SCH (11:50)
--- NOTE | 2018-09-13 12:41 | P.CNPUL ---
History of Present Illness Consult date: 09/13/18 Requesting physician: Dinora Ryan Reason for consult: dyspnea Chief complaint: Hyponatremia, shortness of breath History of present illness: This is a very pleasant 73-year-old female patient with follows with Dr. Odonnell is her primary care physician. She has a known history of moderate persistent chronic bronchial asthma, Parkinson's, skin cancer, congestive heart failure, CVA/TIA, diabetes mellitus with lower extremity neuropathy, GERD, hypertension, renal disease, hypothyroidism, sarcoidosis, macular degeneration, anxiety, atrial fibrillation anticoagulated with Eliquis. This has a history of right lower extremity wound is being followed in the wound clinic. She was brought here to the emergency room yesterday from an extended care facility with blood work revealing a sodium of 119. Her chest x-ray revealed evidence of fluid volume overload with a left pleural effusion as well. We are consulted for the same. She is seen today in consultation on the selective care unit. She is currently awake and alert in no acute distress. She is maintaining O2 saturations in the 90s on room air. She's been afebrile. White count 5.3. Hemoglobin 10.2. Sodium 120. Creatinine 0.43. Chest x-ray reveals evidence of cardiomegaly and interstitial changes with some pulmonary vascular congestion and a [id number] left pleural effusion. She is currently on Lasix 20 mg IV push every 12 hours. Review of Systems Constitutional: Reports fatigue, Reports lethargy Eyes: bilateral blurred vision, bilateral decreased vision Ears: bilateral: decreased hearing Ears, nose, mouth and throat: Denies headache, Denies sore throat Cardiovascular: Reports dyspnea on exertion, Reports irregular heart beat, Reports shortness of breath Respiratory: Reports dyspnea Gastrointestinal: Denies abdominal pain, Denies diarrhea, Denies nausea, Denies vomiting Genitourinary: Reports urge incontinence, Denies dysuria, Denies hematuria Musculoskeletal: Reports limitation of motion Integumentary: Reports sores, Reports wounds Neurological: Reports confusion Psychiatric: Reports anxiety Endocrine: Reports fatigue, Reports high blood sugars Hematologic/Lymphatic: Reports as per HPI Allergic/Immunologic: Reports as per HPI Past Medical History Past Medical History: Atrial Fibrillation, Asthma, Cancer, Heart Failure, COPD, Diabetes Mellitus, Eye Disorder, GERD/Reflux, Hyperlipidemia, Hypertension, Musculoskeletal Disorder, Neurologic Disorder, Renal Disease, Respiratory Disorder, Thyroid Disorder Additional Past Medical History / Comment(s): Current R lower extremity ulcer - tx in [facility], IDDM type II with insulin pump not currently on, neuropathy bilateral legs/feet, bronchitis, 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 History of Any Multi-Drug Resistant Organisms: VRE Date of last positivie culture/infection: 08/18/13 [facility] MDRO Source:: Urine Past Surgical History: Appendectomy, Breast Surgery, Section, Cholecystectomy, Hysterectomy, Orthopedic Surgery Additional Past Surgical History / Comment(s): Debridements R lower leg, L side tongue benign lesion, 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, R shoulder fracture with surgical repair, L elbow ORIF hardware since removed, L hand fracture with surgical repair, bilateral breast benign bxs and reductions, D&C, EGD, colonoscopies, hemorrhoidectomy, bilateral cataract removals with lens implants. Past Anesthesia/Blood Transfusion Reactions: No Reported Reaction Additional Past Anesthesia/Blood Transfusion Reaction / Comment(s): CLAUSTERPHOBIA Past Psychological History: Anxiety Smoking Status: Never smoker Past Alcohol Use History: None Reported Additional Past Alcohol Use History / Comment(s): Patient is a lifelong nonsmoker. She denies any medical marijuana, marijuana, street drug or alcohol use at this time. Patient does have a history of heavy alcohol use and quit 12 years ago. She is currently on Social Security. She is currently at [facility] for rehab r/t falls/weakness, but otherwise lives at home with her . There are no pets in the home. And she has had no recent travel. Past Drug Use History: None Reported - Past Family History Father Family Medical History: Cancer, Prostate Disorder Additional Family Medical History / Comment(s): PROSTATE CA, HERNIA SX BACK SX Mother Family Medical History: Cancer Additional Family Medical History / Comment(s): Mother is . Mother had lung cancer. She was a smoker. Medications and Allergies Home Medications Medication Instructions Recorded Confirmed Type Metoprolol Tartrate [Lopressor] 50 mg PO BID 08/18/15 09/12/18 History Carbidopa-Levodopa 25-100 mg 1 tab PO TID 01/15/16 09/12/18 History [Sinemet 25-100 mg] Levothyroxine Sodium 137 mcg PO DAILY 04/28/18 09/12/18 History Multivitamins, Thera [Multivitamin 1 tab PO DAILY 04/28/18 09/12/18 History (formulary)] Amiodarone HCl [Pacerone] 200 mg PO DAILY 08/09/18 09/12/18 History Ammonium Lactate Lotion 1 applic TOPICAL DAILY 08/09/18 09/12/18 History [Lac-Hydrin 12% Lotion] Atorvastatin Calcium [Lipitor] 10 mg PO HS@2100 08/09/18 09/12/18 History Calcium Carb/Vitamin D3/Vit K1 1 tab PO DAILY@1700 08/09/18 09/12/18 History [Citracal Soft Chew] Docusate [Colace] 100 mg PO BID PRN 08/09/18 09/12/18 History Ergocalciferol [Vitamin D2 50,000 unit PO ROSA 08/09/18 09/12/18 History (DRISDOL)] Ferrous Sulfate [Iron] 325 mg PO DAILY 08/09/18 09/12/18 History Fluticasone/Salmeterol [Advair 1 inhalation PO RT-BID 08/09/18 09/12/18 History 500-50 Diskus] Insulin Detemir [Levemir] 7 unit SQ HS 08/09/18 09/12/18 History Lansoprazole 30 mg PO DAILY@0600 08/09/18 09/12/18 History Levocetirizine Dihydrochloride 5 mg PO HS 08/09/18 09/12/18 History [Xyzal] Melatonin 3 mg PO HS PRN 08/09/18 09/12/18 History Primidone [Mysoline] 50 mg PO DAILY 08/09/18 09/12/18 History Quinapril HCl [Accupril] 20 mg PO DAILY 08/09/18 09/12/18 History Teriparatide [Forteo] 20 mcg SQ DAILY 08/09/18 09/12/18 History Thiamine HCl [Vitamin B-1] 100 mg PO DAILY 08/09/18 09/12/18 History Tolterodine Tartrate [Detrol LA] 4 mg PO HS@2100 08/09/18 09/12/18 History Venlafaxine HCl ER [Effexor XR] 75 mg PO DAILY 08/09/18 09/12/18 History Vit C/E/Zn/Coppr/Lutein/Zeaxan 1 tab PO DAILY 08/09/18 09/12/18 History [Preservision Areds 2 Softgel] Acetaminophen Tab [Tylenol] 650 mg PO Q8H PRN tab 08/16/18 09/12/18 Rx Apixaban [Eliquis] 5 mg PO BID tab 08/16/18 09/12/18 Rx Ipratropium-Albuterol Nebulize 3 ml INHALATION RT-QID PRN 08/16/18 09/12/18 Rx [Duoneb 0.5 mg-3 mg/3 ml Soln] ampul.neb oxyCODONE-APAP 5-325MG [Percocet 0.5 tab PO TID PRN #5 tab 08/16/18 09/12/18 Rx 5-325 mg] Codeine Phosphate/Guaifenesin 10 ml PO QID 08/24/18 09/12/18 History [Guaifen-Codeine 100-10 mg/5 ml] Bisacodyl [Dulcolax] 10 mg RECTAL DAILY PRN 09/12/18 09/12/18 History Folic Acid 1 mg PO DAILY@1700 09/12/18 09/12/18 History INSULIN LISPRO (HumaLOG) [humaLOG] 0 unit SQ ACHS 09/12/18 09/12/18 History Magnesium Hydroxide [Milk of 1,200 mg PO DIRECTED PRN 09/12/18 09/12/18 History Magnesia] Mineral Oil [Fleet Mineral Oil] 133 ml RECTAL DIRECTED PRN 09/12/18 09/12/18 History Teriparatide [Forteo] 20 mcg SQ DAILY@0800 09/12/18 09/12/18 History Allergies Allergy/AdvReac Type Severity Reaction Status Date / Time cefdinir Allergy Severe Swelling Verified 09/12/18 16:45 Cephalosporins Allergy Unknown Verified 09/12/18 16:45 doxycycline Allergy Nausea & Verified 09/12/18 16:45 Vomiting erythromycin base Allergy Nausea & Verified 09/12/18 16:45 Vomiting & Diarrhea/RASH Penicillins Allergy Rash/Hives Verified 09/12/18 16:45 azithromycin AdvReac Nausea & Verified 09/12/18 16:45 Vomiting codeine AdvReac Unknown Verified 09/12/18 16:45 hydrochlorothiazide AdvReac Nausea & Verified 09/12/18 16:45 [From Dyazide] Vomiting levofloxacin [From Levaquin] AdvReac Abdominal Verified 09/12/18 16:45 Pain moxifloxacin HCl AdvReac Unknown Verified 09/12/18 16:45 [From Avelox] sulfamethoxazole AdvReac Nausea & Verified 09/12/18 16:45 [From Bactrim] Vomiting & Diarrhea triamterene [From Dyazide] AdvReac Nausea & Verified 09/12/18 16:45 Vomiting trimethoprim [From Bactrim] AdvReac Unknown Verified 09/12/18 16:45 Physical Exam Vitals: Vital Signs Temp Pulse Pulse Resp BP BP Pulse Ox 09/13/18 08:16 64 09/13/18 08:06 61 22 96 09/13/18 08:00 98.2 F 54 L 178/87 93 L 09/13/18 03:39 53 L 16 124/75 96 09/13/18 03:13 51 L 18 09/13/18 00:32 76 09/13/18 00:22 76 09/13/18 00:00 53 L 18 128/65 97 09/12/18 19:55 56 L 18 167/78 97 09/12/18 19:28 98.5 F 78 15 167/74 97 09/12/18 19:21 78 15 09/12/18 19:13 76 18 09/12/18 17:03 98.2 F 57 L 16 166/64 98 09/12/18 16:55 56 L 18 167/74 97 09/12/18 15:50 54 L 18 185/118 100 09/12/18 15:16 51 L 120 H 199/91 97 09/12/18 14:03 98.5 F 56 L 18 192/96 92 L Intake and Output 09/12/18 09/13/18 09/13/18 22:59 06:59 14:59 Intake Total 200 Balance 200 Intake: Oral 200 Other: Voiding Method Diaper Diaper # Voids 1 1 # Bowel Movements 1 Weight 56.9 kg - Constitutional General appearance: morbidly obese - EENT Eyes: abnormal pupil ENT: hard of hearing Ears: bilateral: normal - Neck Neck: normal ROM Carotids: bilateral: upstroke normal Thyroid: bilateral: normal size - Respiratory Respiratory: left: dullness, bilateral: rales - Cardiovascular Rhythm: irregularly irregular Heart sounds: normal: S1, S2 - Gastrointestinal General gastrointestinal: normal bowel sounds - Integumentary Integumentary: normal turgor - Neurologic Neurologic: CNII-XII intact - Musculoskeletal Musculoskeletal: generalized weakness - Psychiatric Psychiatric: A&O x's 3, appropriate affect, intact judgment & insight Results - Laboratory Findings CBC and BMP: 09/13/18 06:21 09/13/18 06:21 PT/INR, D-dimer PT 13.1 sec (9.0-12.0) H 09/12/18 14:50 INR 1.3 (<1.2) H 09/12/18 14:50 Abnormal lab findings: Abnormal Labs 09/12/18 09/12/18 09/12/18 14:50 14:50 14:50 RBC 3.66 L Hgb Hct Plt Count 129 L Lymphocytes # 0.5 L PT 13.1 H INR 1.3 H APTT 32.8 H Sodium 119 L* Chloride 82 L Creatinine 0.46 L Glucose 222 H POC Glucose (mg/dL) Osmolality Calcium Magnesium 1.1 L AST 38 H Total Protein 6.2 L Albumin 3.3 L 09/12/18 09/12/18 09/13/18 16:53 21:08 06:14 RBC Hgb Hct Plt Count Lymphocytes # PT INR APTT Sodium Chloride Creatinine Glucose POC Glucose (mg/dL) 274 H 246 H 103 H Osmolality Calcium Magnesium AST Total Protein Albumin 09/13/18 09/13/18 09/13/18 06:21 06:21 06:21 RBC 3.11 L Hgb 10.2 L Hct 29.9 L Plt Count 121 L Lymphocytes # 0.5 L PT INR APTT Sodium 120 L Chloride 86 L Creatinine 0.43 L Glucose POC Glucose (mg/dL) Osmolality 242 L* Calcium 8.3 L Magnesium 1.5 L AST 37 H Total Protein 5.7 L Albumin 3.0 L 09/13/18 11:29 RBC Hgb Hct Plt Count Lymphocytes # PT INR APTT Sodium Chloride Creatinine Glucose POC Glucose (mg/dL) 189 H Osmolality Calcium Magnesium AST Total Protein Albumin - Diagnostic Findings Chest x-ray: image reviewed Assessment and Plan Assessment: Impression: #1 Hyponatremia suspect hypovolemic hyponatremia. #2 Acute exacerbation of diastolic congestive heart failure with small to moderate left-sided pleural effusion. #3 Atrial fibrillation, anticoagulated with Eliquis. #4 Diabetes mellitus. #5 Diabetic neuropathy. #6 Lower extremity wound. #7 History of CVA/TIA. #8 Chronic moderate persistent bronchial asthma. #9 Hypertension. #10 Hypothyroidism. #11 History of sarcoidosis. Plan: The patient was seen and evaluated by Dr. Mckeon. Chest x-ray and labs were reviewed. She is currently stable from the pulmonary standpoint. Continue Symbicort and DuoNeb's. Continue IV diuretics. Continue to monitor sodium levels. Nephrology is on the case. Increase her activity as tolerated. We'll continue to follow and make further recommendations based on her clinical status. I, the cosigning physician, performed a history & physical examination of the patient. Lungs sounds few scattered rhonchi, crackles in the left base. Diminished. Maintaining good O2 saturations in the 90s on room air. I discussed the assessment and plan of care with my nurse practitioner, Jen Brush. I attest to the above consultation as dictated by her. Time with Patient: Greater than 30
[2018-09-13] MEDS: THIAMINE 100 MG TAB PO SCH (13:47)
[2018-09-13] MEDS: MULTIVITAMINS, THERA 1 EACH TAB PO SCH (13:47)
[2018-09-13] MEDS: VIT A,C & E-LUTEIN-MINERALS 1 EACH TAB PO SCH (13:47)
[2018-09-13] MEDS: FERROUS SULFATE 325 MG TAB PO SCH (13:47)
--- NOTE | 2018-09-13 15:32 | P.CRDCN ---
History of Present Illness History of present illness: This is Dr. Last dictating a consult on this patient The patient was interviewed and examined by me IMPRESSION / ASSESSMENT: Patient with hyponatremia and shortness of breath PLAN: 2-D echo and Doppler study to assess cardiac structure and function HPI [facility] of hyponatremia and pleural effusion. She complains of shortness of breath at rest Prior history of hyponatremia prior history of heart failure she has a wound in the right lower extremity ROS: No fever chills or rigors, no cough, phlegm or expectoration, no nausea, vomiting or diarrhea, no hematuria, dysuria, no musculoskeletal complaints, no strokes or seizures, no skin lesions. EXAMINATION: Blood pressure 124/75 and 178/87 Breath sounds are reduced bilaterally Heart sounds S1 is soft REVIEW OF LABS, ECG & MEDICAL DATA Chest x-ray shows increased interstitial markings [id number] left-sided pleural effusion with possible consolidation Twelve-lead ECG shows sinus rhythm right bundle branch block left anterior fascicular block normal [place] interval heart rate 52 beats a minute Hemoglobin 10.2 sodium 120 TSH 1.7 Past Medical History Past Medical History: Atrial Fibrillation, Asthma, Cancer, Heart Failure, COPD, Diabetes Mellitus, Eye Disorder, GERD/Reflux, Hyperlipidemia, Hypertension, Musculoskeletal Disorder, Neurologic Disorder, Renal Disease, Respiratory Disorder, Thyroid Disorder Additional Past Medical History / Comment(s): Current R lower extremity ulcer - tx in [facility], IDDM type II with insulin pump not currently on, neuropathy bilateral legs/feet, bronchitis, 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 Past Anesthesia/Blood Transfusion Reactions: No Reported Reaction Additional Past Anesthesia/Blood Transfusion Reaction / Comment(s): CLAUSTERPHOBIA Past Psychological History: Anxiety Smoking Status: Never smoker Past Alcohol Use History: None Reported Additional Past Alcohol Use History / Comment(s): Patient is a lifelong nonsmoker. She denies any medical marijuana, marijuana, street drug or alcohol use at this time. Patient does have a history of heavy alcohol use and quit 12 years ago. She is currently on Social Security. She is currently at [facility] for rehab r/t falls/weakness, but otherwise lives at home with her . There are no pets in the home. And she has had no recent travel. Past Drug Use History: None Reported - Past Family History Father Family Medical History: Cancer, Prostate Disorder Additional Family Medical History / Comment(s): PROSTATE CA, HERNIA SX BACK SX Mother Family Medical History: Cancer Additional Family Medical History / Comment(s): Mother is . Mother had lung cancer. She was a smoker. Medications and Allergies Home Medications Medication Instructions Recorded Confirmed Type Metoprolol Tartrate [Lopressor] 50 mg PO BID 08/18/15 09/12/18 History Carbidopa-Levodopa 25-100 mg 1 tab PO TID 01/15/16 09/12/18 History [Sinemet 25-100 mg] Levothyroxine Sodium 137 mcg PO DAILY 04/28/18 09/12/18 History Multivitamins, Thera [Multivitamin 1 tab PO DAILY 04/28/18 09/12/18 History (formulary)] Amiodarone HCl [Pacerone] 200 mg PO DAILY 08/09/18 09/12/18 History Ammonium Lactate Lotion 1 applic TOPICAL DAILY 08/09/18 09/12/18 History [Lac-Hydrin 12% Lotion] Atorvastatin Calcium [Lipitor] 10 mg PO HS@2100 08/09/18 09/12/18 History Calcium Carb/Vitamin D3/Vit K1 1 tab PO DAILY@1700 08/09/18 09/12/18 History [Citracal Soft Chew] Docusate [Colace] 100 mg PO BID PRN 08/09/18 09/12/18 History Ergocalciferol [Vitamin D2 50,000 unit PO ROSA 08/09/18 09/12/18 History (DRISDOL)] Ferrous Sulfate [Iron] 325 mg PO DAILY 08/09/18 09/12/18 History Fluticasone/Salmeterol [Advair 1 inhalation PO RT-BID 08/09/18 09/12/18 History 500-50 Diskus] Insulin Detemir [Levemir] 7 unit SQ HS 08/09/18 09/12/18 History Lansoprazole 30 mg PO DAILY@0600 08/09/18 09/12/18 History Levocetirizine Dihydrochloride 5 mg PO HS 08/09/18 09/12/18 History [Xyzal] Melatonin 3 mg PO HS PRN 08/09/18 09/12/18 History Primidone [Mysoline] 50 mg PO DAILY 08/09/18 09/12/18 History Quinapril HCl [Accupril] 20 mg PO DAILY 08/09/18 09/12/18 History Teriparatide [Forteo] 20 mcg SQ DAILY 08/09/18 09/12/18 History Thiamine HCl [Vitamin B-1] 100 mg PO DAILY 08/09/18 09/12/18 History Tolterodine Tartrate [Detrol LA] 4 mg PO HS@2100 08/09/18 09/12/18 History Venlafaxine HCl ER [Effexor XR] 75 mg PO DAILY 08/09/18 09/12/18 History Vit C/E/Zn/Coppr/Lutein/Zeaxan 1 tab PO DAILY 08/09/18 09/12/18 History [Preservision Areds 2 Softgel] Acetaminophen Tab [Tylenol] 650 mg PO Q8H PRN tab 08/16/18 09/12/18 Rx Apixaban [Eliquis] 5 mg PO BID tab 08/16/18 09/12/18 Rx Ipratropium-Albuterol Nebulize 3 ml INHALATION RT-QID PRN 08/16/18 09/12/18 Rx [Duoneb 0.5 mg-3 mg/3 ml Soln] ampul.neb oxyCODONE-APAP 5-325MG [Percocet 0.5 tab PO TID PRN #5 tab 08/16/18 09/12/18 Rx 5-325 mg] Codeine Phosphate/Guaifenesin 10 ml PO QID 08/24/18 09/12/18 History [Guaifen-Codeine 100-10 mg/5 ml] Bisacodyl [Dulcolax] 10 mg RECTAL DAILY PRN 09/12/18 09/12/18 History Folic Acid 1 mg PO DAILY@1700 09/12/18 09/12/18 History INSULIN LISPRO (HumaLOG) [humaLOG] 0 unit SQ ACHS 09/12/18 09/12/18 History Magnesium Hydroxide [Milk of 1,200 mg PO DIRECTED PRN 09/12/18 09/12/18 History Magnesia] Mineral Oil [Fleet Mineral Oil] 133 ml RECTAL DIRECTED PRN 09/12/18 09/12/18 History Teriparatide [Forteo] 20 mcg SQ DAILY@0800 09/12/18 09/12/18 History Allergies Allergy/AdvReac Type Severity Reaction Status Date / Time cefdinir Allergy Severe Swelling Verified 09/12/18 16:45 Cephalosporins Allergy Unknown Verified 09/12/18 16:45 doxycycline Allergy Nausea & Verified 09/12/18 16:45 Vomiting erythromycin base Allergy Nausea & Verified 09/12/18 16:45 Vomiting & Diarrhea/RASH Penicillins Allergy Rash/Hives Verified 09/12/18 16:45 azithromycin AdvReac Nausea & Verified 09/12/18 16:45 Vomiting codeine AdvReac Unknown Verified 09/12/18 16:45 hydrochlorothiazide AdvReac Nausea & Verified 09/12/18 16:45 [From Dyazide] Vomiting levofloxacin [From Levaquin] AdvReac Abdominal Verified 09/12/18 16:45 Pain moxifloxacin HCl AdvReac Unknown Verified 09/12/18 16:45 [From Avelox] sulfamethoxazole AdvReac Nausea & Verified 09/12/18 16:45 [From Bactrim] Vomiting & Diarrhea triamterene [From Dyazide] AdvReac Nausea & Verified 09/12/18 16:45 Vomiting trimethoprim [From Bactrim] AdvReac Unknown Verified 09/12/18 16:45 Physical Exam Vitals: Vital Signs Temp Pulse Pulse Resp BP BP Pulse Ox 09/13/18 12:22 56 L 09/13/18 12:11 56 L 20 09/13/18 12:00 58 L 99 09/13/18 08:16 64 09/13/18 08:06 61 22 96 09/13/18 08:00 98.2 F 54 L 178/87 93 L 09/13/18 03:39 53 L 16 124/75 96 09/13/18 03:13 51 L 18 09/13/18 00:32 76 09/13/18 00:22 76 09/13/18 00:00 53 L 18 128/65 97 09/12/18 19:55 56 L 18 167/78 97 09/12/18 19:28 98.5 F 78 15 167/74 97 09/12/18 19:21 78 15 09/12/18 19:13 76 18 09/12/18 17:03 98.2 F 57 L 16 166/64 98 09/12/18 16:55 56 L 18 167/74 97 09/12/18 15:50 54 L 18 185/118 100 Intake and Output 09/13/18 09/13/18 09/13/18 06:59 14:59 22:59 Intake Total 200 Balance 200 Intake: Oral 200 Other: Voiding Method Diaper Diaper # Voids 1 1 # Bowel Movements 1 Results 09/13/18 06:21 09/13/18 06:21 Cardiac Enzymes 09/12/18 09/12/18 09/13/18 Range/Units 14:50 14:50 06:21 AST 38 H 37 H (14-36) U/L CK-MB (CK-2) 1.3 (0.0-2.4) ng/mL Troponin I <0.012 (0.000-0.034) ng/mL CBC 09/13/18 Range/Units 06:21 WBC 5.3 (3.8-10.6) k/uL RBC 3.11 L (3.80-5.40) m/uL Hgb 10.2 L (11.4-16.0) gm/dL Hct 29.9 L (34.0-46.0) % Plt Count 121 L (150-450) k/uL Comprehensive Metabolic Panel 09/12/18 09/13/18 Range/Units 14:50 06:21 Sodium 119 L* 120 L (137-145) mmol/L Potassium 4.9 4.4 (3.5-5.1) mmol/L Chloride 82 L 86 L (98-107) mmol/L Carbon Dioxide 29 27 (22-30) mmol/L BUN 12 12 (7-17) mg/dL Creatinine 0.46 L 0.43 L (0.52-1.04) mg/dL Glucose 222 H 98 (74-99) mg/dL Calcium 8.5 8.3 L (8.4-10.2) mg/dL AST 38 H 37 H (14-36) U/L ALT 13 15 (9-52) U/L Alkaline Phosphatase 83 81 (38-126) U/L Total Protein 6.2 L 5.7 L (6.3-8.2) g/dL Albumin 3.3 L 3.0 L (3.5-5.0) g/dL Current Medications Generic Name Dose Route Start Last Admin Trade Name Freq PRN Reason Stop Dose Admin Acetaminophen 650 mg 09/12/18 16:26 Tylenol Tab PO Q6HR PRN Mild Pain or Fever > 100.5 Albuterol/Ipratropium 3 ml 09/12/18 17:49 09/13/18 12:11 Duoneb 0.5 Mg-3 Mg/3 Ml Soln INHALATION 3 ml RT-QID PRN Administration Shortness Of Breath Or Wheezing Amiodarone HCl 200 mg 09/13/18 09:00 09/13/18 10:27 Cordarone PO 200 mg DAILY LAMBERTO Administration Apixaban 5 mg 09/12/18 21:00 09/13/18 10:27 Eliquis PO 5 mg BID LAMBERTO Administration Atorvastatin Calcium 10 mg 09/12/18 21:00 09/12/18 21:23 Lipitor PO 10 mg HS@2100 LAMBERTO Administration Bisacodyl 10 mg 09/12/18 17:49 Dulcolax RECTAL DAILY PRN Constipation Budesonide/Formoterol Fumarate 2 puff 09/12/18 20:00 09/13/18 08:06 Symbicort 160-4.5 Mcg Inhaler INHALATION 2 puff RT-BID LAMBERTO Administration Calcium Carbonate 1 each 09/13/18 17:00 Oscal 500+D PO DAILY@1700 [facility] Carbidopa/Levodopa 1 each 09/12/18 22:00 09/13/18 10:27 Sinemet 25-100 PO 1 each TID LAMBERTO Administration Docusate Sodium 100 mg 12/31/18 17:49 Colace PO BID PRN Constipation Ergocalciferol 50,000 unit 09/18/18 12:00 Vitamin D2 PO ROSA [facility] Ferrous Sulfate 325 mg 09/13/18 12:00 09/13/18 13:47 Feosol PO 325 mg 1200 L[facility]O Administration Folic Acid 1 mg 09/13/18 17:00 Folic Acid PO DAILY@1700 L[facility]O Furosemide 20 mg 09/13/18 09:30 09/13/18 10:31 Lasix IV 20 mg Q12HR LAMBERTO Administration Guaifenesin/Codeine Phosphate 10 ml 09/12/18 18:00 09/13/18 13:47 Robitussin Ac PO 10 ml QID LAMBERTO Administration Insulin Aspart 0 unit 09/12/18 21:30 09/13/18 12:35 Novolog SQ 2 unit ACHS [facility] Administration Protocol Insulin Detemir 7 unit 09/12/18 21:00 09/12/18 21:24 Levemir SQ 7 unit HS [facility] Administration Lactic Acid 1 applic 09/13/18 09:00 09/13/18 10:27 Lac-Hydrin 12% TOPICAL 1 applic DAILY LAMBERTO Administration Levothyroxine Sodium 137 mcg 09/13/18 06:30 09/13/18 06:25 Synthroid PO 137 mcg DAILY@0630 [facility] Administration Lisinopril 20 mg 09/13/18 09:00 09/13/18 10:27 Zestril PO 20 mg DAILY L[facility]BERTO Administration Loratadine 10 mg 09/12/18 21:00 09/12/18 21:24 Claritin PO 10 mg HS [facility] Administration Magnesium Hydroxide 1,200 mg 09/12/18 17:49 Milk Of Magnesia PO DAILY PRN Constipation Melatonin 3 mg 09/12/18 17:49 09/12/18 21:23 Melatonin PO 3 mg HS PRN Administration Insomnia Metoprolol Tartrate 50 mg 09/12/18 21:00 09/13/18 10:27 Lopressor PO 50 mg BID LAMBERTO Administration Miscellaneous Information 1 each 09/13/18 08:11 Magnesium Per Protocol MISCELLANE DAILY PRN Per Protocol Protocol Multivitamins 1 each 09/13/18 12:00 09/13/18 13:47 Theragran PO 1 each 1200 [facility]O Administration Multivitamins/Minerals 1 each 09/13/18 12:00 09/13/18 13:47 Ivite PO 1 each 1200 [facility] Administration Naloxone HCl 0.2 mg 09/12/18 16:26 Narcan IV Q2M PRN Opioid Reversal Patient's Own ( 20 mcg 09/13/18 08:00 09/13/18 11:50 Teriparatide [Forteo SQ Not Given ] 20 Mcg) DAILY@0800 [facility] Oxybutynin Chloride 10 mg 09/12/18 21:00 09/12/18 21:24 Ditropan Xl PO 10 mg HS@2100 [facility] Administration Oxycodone/Acetaminophen 0.5 each 09/12/18 17:49 Percocet 5-325 PO TID PRN Pain Pantoprazole Sodium 40 mg 09/13/18 06:00 09/13/18 06:25 Protonix PO 40 mg DAILY@0600 [facility] Administration Primidone 50 mg 09/13/18 09:00 09/13/18 10:27 Mysoline PO 50 mg DAILY [facility]O Administration Tetrahydrozoline HCl 1 drops 09/13/18 14:26 Visine Eye Drops BOTH EYES TID PRN Eye Irritation Thiamine HCl 100 mg 09/13/18 12:00 09/13/18 13:47 Vitamin B-1 PO 100 mg 1200 [facility]BERTO Administration Intake and Output 09/13/18 09/13/18 09/13/18 06:59 14:59 22:59 Intake Total 200 Balance 200 Intake: Oral 200 Other: Voiding Method Diaper Diaper # Voids 1 1 # Bowel Movements 1 09/13/18 06:21 09/13/18 06:21
[2018-09-13 16:22] LABS: Glucose,Whole Blood 190 mg/dL (75-99)
[2018-09-13] MEDS: CALCIUM CARB-VIT D 500MG-200UN 1 EACH TAB PO SCH (17:46)
[2018-09-13] MEDS: FOLIC ACID 1 MG TAB PO SCH (17:46)
[2018-09-13] MEDS ORDERED: TOLVAPTAN 15 MG 1/2 TABLET PO ONE (19:00)
--- NOTE | 2018-09-13 19:42 | P.PN ---
Subjective Progress Note Date: 09/13/18 Progress note being dictated for Interval history: This is a 73-year-old female admitted with severe hyponatremia , possible SIADH, possible CHF exacerbation and multiple other medical issues. Maintained on gentle IV fluid hydration , sodium increased to 120.Evaluated by a nephrology, IV fluids discontinued, Lasix and fluid restriction initiated. Magnesium currently being replaced. Afebrile. Evaluated by both cardiology and pulmonary with recommendations noted. Objective - Vital Signs Vital signs: Vital Signs Temp 98.2 F 09/13/18 08:00 Pulse 54 L 09/13/18 16:28 Resp 20 09/13/18 12:11 BP 167/69 09/13/18 16:00 Pulse Ox 98 09/13/18 16:18 Intake & Output 09/12/18 09/13/18 09/13/18 18:59 06:59 18:59 Intake Total 300 Balance 300 Weight 56.9 kg Intake: Oral 300 Other: Voiding Method Diaper Diaper # Voids 1 4 # Bowel Movements 1 - Exam PHYSICAL EXAM: VITAL SIGNS: As above GENERAL: Sitting up in bed, no acute distress HEENT: Conjunctivae normal. eyes normal. Oral conjunctiva moist NECK: No JVD. No thyroid enlargement. No LNs CARDIOVASCULAR: S1, S2 muffled. Irregular, No murmur RESPIRATION: Breath sounds diminished in the bases. Occasional scattered rhonchi more so on the right, fine bibasilar crackles. No wheezing ABDOMEN: Soft, nontender . No guarding. no masses palpable. Bowel sounds heard. LEGS: No edema. no swelling PSYCHIATRY: Alert and oriented -3, mood and affect normal. NERVOUS SYSTEM: Cranial N 2-12 grossly normal. Moves all 4 limbs. Diffuse weakness No focal deficits. Skin: no ulcer no rash Joints: No active swelling. No inflammation. Lymphatic system. No LN neck axilla or groin. - Labs CBC & Chem 7: 09/13/18 06:21 09/13/18 17:14 Labs: Abnormal Lab Results - Last 24 Hours (Table) 09/12/18 09/13/18 09/13/18 Range/Units 21:08 06:14 06:21 RBC 3.11 L (3.80-5.40) m/uL Hgb 10.2 L (11.4-16.0) gm/dL Hct 29.9 L (34.0-46.0) % Plt Count 121 L (150-450) k/uL Lymphocytes # 0.5 L (1.0-4.8) k/uL Sodium (137-145) mmol/L Chloride (98-107) mmol/L Creatinine (0.52-1.04) mg/dL POC Glucose (mg/dL) 246 H 103 H (75-99) mg/dL Osmolality (280-301) mosm/kg Calcium (8.4-10.2) mg/dL Magnesium (1.6-2.3) mg/dL AST (14-36) U/L Total Protein (6.3-8.2) g/dL Albumin (3.5-5.0) g/dL 09/13/18 09/13/18 09/13/18 Range/Units 06:21 06:21 11:29 RBC (3.80-5.40) m/uL Hgb (11.4-16.0) gm/dL Hct (34.0-46.0) % Plt Count (150-450) k/uL Lymphocytes # (1.0-4.8) k/uL Sodium 120 L (137-145) mmol/L Chloride 86 L (98-107) mmol/L Creatinine 0.43 L (0.52-1.04) mg/dL POC Glucose (mg/dL) 189 H (75-99) mg/dL Osmolality 242 L* (280-301) mosm/kg Calcium 8.3 L (8.4-10.2) mg/dL Magnesium 1.5 L (1.6-2.3) mg/dL AST 37 H (14-36) U/L Total Protein 5.7 L (6.3-8.2) g/dL Albumin 3.0 L (3.5-5.0) g/dL 09/13/18 09/13/18 Range/Units 16:20 17:14 RBC (3.80-5.40) m/uL Hgb (11.4-16.0) gm/dL Hct (34.0-46.0) % Plt Count (150-450) k/uL Lymphocytes # (1.0-4.8) k/uL Sodium 118 L* (137-145) mmol/L Chloride (98-107) mmol/L Creatinine (0.52-1.04) mg/dL POC Glucose (mg/dL) 190 H (75-99) mg/dL Osmolality (280-301) mosm/kg Calcium (8.4-10.2) mg/dL Magnesium (1.6-2.3) mg/dL AST (14-36) U/L Total Protein (6.3-8.2) g/dL Albumin (3.5-5.0) g/dL Microbiology - Last 24 Hours (Table) 09/12/18 14:50 Blood Culture - Preliminary Blood No Growth after 24 hours Assessment and Plan Assessment: -Severe Hyponatremia, possibly hypovolemic, rule out SIADH -Acute on chronic CHF exacerbation, diastolic dysfunction with left-sided pleural effusion -Atrial fibrillation, chronic -Hypomagnesemia -Diabetes mellitus type 2, on insulin pump -Gastroesophageal reflux disease -Right lower extremity chronic ulcer -Mild to moderate protein calorie malnutrition -Anxiety Plan: Continue on current medication regime ,monitoring and symptomatic treatment. Maintain nebulized bronchodilators, Symbicort. Echo pending. Urine studies pending. Maintain fluid restrictions, diuretics as per nephrology. Encourage oral intake with close monitoring of blood sugars.Close monitoring of renal function and electrolytes with repeat labs ordered for a.m. increase activity as tolerated. Follow closely with multiple consults. Further recommendations to follow. The impression and plan of care has been dictated as directed. : I performed a history and examination of this patient, discussed the same with the dictator. I agree with the dictator's note ,documented as a scribe. Any additional findings or plans will be noted.
[2018-09-13 20:46] LABS: Glucose,Whole Blood 166 mg/dL (75-99)
[2018-09-13] MEDS: OXYBUTYNIN 10 MG TAB.ER.24 PO SCH (21:05)
[2018-09-13] MEDS: MELATONIN 3 MG TABLET PO PRN (21:05)
[2018-09-13] MEDS: LORATADINE 10 MG TAB PO SCH (21:05)
[2018-09-13] MEDS: ATORVASTATIN 10 MG TAB PO SCH (21:05)
[2018-09-13] MEDS: INSULIN DETEMIR 100 UNIT/ML 10 ML VIAL SQ SCH (21:05)
[2018-09-14] MEDS ORDERED: SODIUM CHLORIDE 3%(HYPERTONIC) 500 ML IV SCH ×2 (01:45→22:15)
[2018-09-14 02:14] LABS: Glucose,Whole Blood 246 mg/dL (75-99)
[2018-09-14] MEDS ORDERED: amLODIPine 5 MG TAB PO STA (02:48)
[2018-09-14] MEDS: INSULIN ASPART 100 UNIT/ML 1 ML 10 ML VIAL SQ SCH ×5 (02:59→21:38)
[2018-09-14] MEDS ORDERED: ONDANSETRON 4 MG/2 ML VIAL IVP PRN (05:20)
[2018-09-14] MEDS: TETRAHYDROZOLINE 0.05% OPHTH DROPS 15 ML BTL BOTH EYES PRN ×2 (05:42→21:40)
[2018-09-14 05:47] LABS: Basophils % (A) 1 %; Eosinophils # (A) 0.1 k/uL (0-0.7); Eosinophils % (A) 3 %; HCT 30.8 % (34.0-46.0); HGB 10.5 gm/dL (11.4-16.0); Lymphocytes # (A) 0.6 k/uL (1.0-4.8); Lymphocytes % (A) 11 %; MCH 32.2 pg (25.0-35.0); MCHC 34.2 g/dL (31.0-37.0); MCV 94.3 fL (80.0-100.0); Mean Platelet Volume 7.1; Monocytes # (A) 0.4 k/uL (0-1.0); Monocytes % (A) 8 %; Neutrophils # (A) 3.9 k/uL (1.3-7.7); Neutrophils % (A) 75 %; Platelet Count 122 k/uL (150-450); RBC 3.27 m/uL (3.80-5.40); RDW 14.1 % (11.5-15.5); WBC 5.2 k/uL (3.8-10.6)
[2018-09-14 05:55] LABS: Anion Gap 8 mmol/L; Blood Urea Nitrogen 15 mg/dL (7-17); Calcium 8.4 mg/dL (8.4-10.2); Carbon Dioxide 28 mmol/L (22-30); Chloride 86 mmol/L (98-107); Glucose 74 mg/dL (74-99); Magnesium 1.4 mg/dL (1.6-2.3); Phosphorus 3.8 mg/dL (2.5-4.5); Sodium 122 mmol/L (137-145)
[2018-09-14] MEDS ORDERED: hydrALAZINE HCL 20 MG/ML 1 ML VIAL IVP PRN (06:32)
[2018-09-14] MEDS ORDERED: Magnesium Replacement Protocol 1 EACH MISC MISCELLANE PRN (07:00)
[2018-09-14 07:13] LABS: Glucose,Whole Blood 58 mg/dL (75-99)
[2018-09-14] MEDS: MAGNESIUM SULFATE-D5W PMX 1 GM in DEXTROSE/WATER 1 100ML.BAG IVPB SCH ×3 (07:18→10:10)
[2018-09-14 07:43] LABS: Glucose,Whole Blood 78 mg/dL (75-99)
[2018-09-14] MEDS: LEVOTHYROXINE 137 MCG TAB PO SCH (08:21)
[2018-09-14] MEDS: APIXABAN 5 MG TAB PO SCH ×2 (08:21→21:12)
[2018-09-14] MEDS: PANTOPRAZOLE 40 MG TABLET PO SCH (08:21)
--- NOTE | 2018-09-14 08:21 | XR ---
EXAMINATION TYPE: XR chest 1V DATE OF EXAM: 09/14/2018 COMPARISON: 09/12/2018 HISTORY: Chronic pleural effusion TECHNIQUE: Single frontal view of the chest is obtained. FINDINGS: Calcifications in the hilum bilaterally. Heart is enlarged. There is left lower lobe conso lidation and small bilateral effusions. Interstitium is prominent there is underlying COPD and cardio megaly. Diffuse osteopenia and arthropathy of the shoulders. Granuloma right upper lobe noted. IMPRESSION: 1. Left lower lobe infiltrate and small bilateral effusions are stable. 2. Correlate for mild central venous congestion.
[2018-09-14] MEDS: amLODIPine 5 MG TAB PO SCH (08:22)
[2018-09-14] MEDS: AMIODARONE 200 MG TAB PO SCH (08:22)
[2018-09-14] MEDS: PRIMIDONE 50 MG TAB PO SCH (08:22)
[2018-09-14] MEDS: LISINOPRIL 20 MG TAB PO SCH (08:23)
[2018-09-14] MEDS: CARBIDOPA-LEVODOPA 25-100 MG 1 EACH TAB PO SCH ×3 (08:30→22:48)
[2018-09-14] MEDS: IPRATROPIUM-ALBUTEROL 3 ML NEB INHALATION PRN ×3 (08:49→22:27)
[2018-09-14] MEDS: SYMBICORT 160-4.5 MCG INHALER INHALATION SCH ×2 (08:49→19:20)
[2018-09-14] MEDS: ACETAMINOPHEN TAB 325 MG TAB PO PRN (10:35)
[2018-09-14 12:09] LABS: Glucose,Whole Blood 136 mg/dL (75-99)
[2018-09-14] MEDS: METOPROLOL TARTRATE 25 MG TAB PO SCH ×2 (12:18→21:13)
[2018-09-14] MEDS: THIAMINE 100 MG TAB PO SCH (12:34)
[2018-09-14] MEDS: FERROUS SULFATE 325 MG TAB PO SCH (12:34)
[2018-09-14] MEDS: MULTIVITAMINS, THERA 1 EACH TAB PO SCH (12:34)
[2018-09-14] MEDS: guaiFENesin-Coden 100-10MG/5ML 10 ML CUP PO PRN ×2 (12:34→22:48)
[2018-09-14] MEDS: AMMONIUM LACTATE 12% LOTION 225 GM BTL TOPICAL SCH (12:35)
[2018-09-14] MEDS: VIT A,C & E-LUTEIN-MINERALS 1 EACH TAB PO SCH (12:35)
[2018-09-14] MEDS: TERIPARATIDE 20 MCG SQ SCH (12:43)
[2018-09-14 13:45] LABS: Magnesium 2.2 mg/dL (1.6-2.3)
--- NOTE | 2018-09-14 13:51 | P.PN ---
Subjective Patient is seen in follow-up for hyponatremia. Sodium level was 119 on admission and she was started on normal saline. Sodium improved only mildly to 120. Patient also received Lasix at a dose of Samsca with no improvement in sodium. She was started on 3% saline last night. Sodium level up to 123 this morning. Currently resting in bed. GFR at baseline. Oral intake is fair. Vital signs are stable. General: The patient appeared well nourished and normally developed. HEENT: Head exam is unremarkable. Neck is without jugular venous distension. LUNGS: Lungs are clear to auscultation and percussion. Breath sounds decreased. HEART: Rate and Rhythm are regular. First and second heart sounds normal. No murmurs, rubs or gallops. ABDOMEN: Abdominal exam reveals normal bowel sounds. Non-tender and non- distended. No evidence of peritonitis. EXTREMITITES: No clubbing, cyanosis, or edema. Objective - Vital Signs Vital signs: Vital Signs Temp 97.8 F 09/14/18 12:00 Pulse 52 L 09/14/18 13:01 Resp 14 09/14/18 13:01 BP 163/52 09/14/18 13:01 Pulse Ox 92 L 09/14/18 13:01 Intake & Output 09/13/18 09/14/18 09/14/18 18:59 06:59 18:59 Intake Total 300 60 300 Output Total 1250 650 Balance 300 -1190 -350 Weight 56.9 kg Intake: IV 60 300 Magnesium Sulfate-D5w Pmx 200 1 gm In Dextrose/Water 1 100ml.bag @ 100 mls/hr IVPB Q1H LAMBERTO Rx#: [id number] Magnesium Sulfate-D5w Pmx 100 1 gm In Dextrose/Water 1 100ml.bag @ 100 mls/hr IVPB Q1H LAMBERTO Rx#: [id number] Sodium Chloride 3%( 60 0 Hypertonic) 500 ml @ 20 mls/hr IV .Q24H LAMBERTO Rx#: [id number] Oral 300 Output: Urine 1250 650 Other: Voiding Method Diaper Indwelling Catheter Indwelling Catheter # Voids 4 1 # Bowel Movements 1 1 - Labs CBC & Chem 7: 09/14/18 05:29 09/14/18 05:29 Labs: Abnormal Lab Results - Last 24 Hours (Table) 09/13/18 09/13/18 09/13/18 Range/Units 06:21 16:20 17:14 RBC (3.80-5.40) m/uL Hgb (11.4-16.0) gm/dL Hct (34.0-46.0) % Plt Count (150-450) k/uL Lymphocytes # (1.0-4.8) k/uL APTT (22.0-30.0) sec Sodium 118 L* (137-145) mmol/L Chloride (98-107) mmol/L Creatinine (0.52-1.04) mg/dL POC Glucose (mg/dL) 190 H (75-99) mg/dL Hemoglobin A1c 7.0 H (4.0-6.0) % Magnesium (1.6-2.3) mg/dL 09/13/18 09/14/18 09/14/18 Range/Units 20:44 00:12 00:12 RBC (3.80-5.40) m/uL Hgb (11.4-16.0) gm/dL Hct (34.0-46.0) % Plt Count (150-450) k/uL Lymphocytes # (1.0-4.8) k/uL APTT 32.3 H (22.0-30.0) sec Sodium 117 L* (137-145) mmol/L Chloride (98-107) mmol/L Creatinine (0.52-1.04) mg/dL POC Glucose (mg/dL) 166 H (75-99) mg/dL Hemoglobin A1c (4.0-6.0) % Magnesium (1.6-2.3) mg/dL 09/14/18 09/14/18 09/14/18 Range/Units 02:03 05:29 05:29 RBC 3.27 L (3.80-5.40) m/uL Hgb 10.5 L (11.4-16.0) gm/dL Hct 30.8 L (34.0-46.0) % Plt Count 122 L (150-450) k/uL Lymphocytes # 0.6 L (1.0-4.8) k/uL APTT (22.0-30.0) sec Sodium 122 L (137-145) mmol/L Chloride 86 L (98-107) mmol/L Creatinine 0.49 L (0.52-1.04) mg/dL POC Glucose (mg/dL) 246 H (75-99) mg/dL Hemoglobin A1c (4.0-6.0) % Magnesium 1.4 L (1.6-2.3) mg/dL 09/14/18 09/14/18 Range/Units 07:01 11:57 RBC (3.80-5.40) m/uL Hgb (11.4-16.0) gm/dL Hct (34.0-46.0) % Plt Count (150-450) k/uL Lymphocytes # (1.0-4.8) k/uL APTT (22.0-30.0) sec Sodium (137-145) mmol/L Chloride (98-107) mmol/L Creatinine (0.52-1.04) mg/dL POC Glucose (mg/dL) 58 L 136 H (75-99) mg/dL Hemoglobin A1c (4.0-6.0) % Magnesium (1.6-2.3) mg/dL Microbiology - Last 24 Hours (Table) 09/12/18 14:50 Blood Culture - Preliminary Blood No Growth after 24 hours Assessment and Plan Plan: Assessment: 1. Hyponatremia secondary to poor solute intake. Patient received 3% saline last night. Sodium level up to 123 today. Urine osmolality 299. TSH normal. 2. Diastolic CHF. 3. Pulmonary vascular congestion. 4. Hypomagnesemia from poor oral intake. Status post placement. 5. Benign hypertension. Currently controlled. 6. Insulin-dependent diabetes mellitus. Plan: Currently off all IV fluids. Encouraged oral intake, particularly protein. Added ensure 3 times daily. Maintain 1200 mL fluid restriction. Repeat sodium level this evening. Follow-up echo results. Check uric acid and PThrp.
--- NOTE | 2018-09-14 15:52 | P.PN ---
Subjective Progress Note Date: 09/14/18 Principal diagnosis: Acute diastolic congestive heart failure and hyponatremia related to hypervolemia. This is a very pleasant 73-year-old female patient with follows with Dr. Odonnell is her primary care physician. She has a known history of moderate persistent chronic bronchial asthma, Parkinson's, skin cancer, congestive heart failure, CVA/TIA, diabetes mellitus with lower extremity neuropathy, GERD, hypertension, renal disease, hypothyroidism, sarcoidosis, macular degeneration, anxiety, atrial fibrillation anticoagulated with Eliquis. This has a history of right lower extremity wound is being followed in the wound clinic. She was brought here to the emergency room yesterday from an extended care facility with blood work revealing a sodium of 119. Her chest x-ray revealed evidence of fluid volume overload with a left pleural effusion as well. We are consulted for the same. She is seen today in consultation on the selective care unit. She is currently awake and alert in no acute distress. She is maintaining O2 saturations in the 90s on room air. She's been afebrile. White count 5.3. Hemoglobin 10.2. Sodium 120. Creatinine 0.43. Chest x-ray reveals evidence of cardiomegaly and interstitial changes with some pulmonary vascular congestion and a [id number] left pleural effusion. She is currently on Lasix 20 mg IV push every 12 hours. Patient was reevaluated again today on 09/14/2018, she is now in the intensive care unit, and she was transferred mostly because her sodium went down to 117 last night. Patient had to be placed on 3% saline, and after few hours of 3% saline, her sodium went up to 122. This was discontinued, patient remains on fluid restrictions, and she was seen by nephrology on consultation. It was felt that her hyponatremia is secondary to poor solute intake. Her sodium level went as high as 123 today, and her urine osmolality was 299. She had normal thyroid profile. And she was also noted to have hypomagnesemia. Nephrology recommended maintaining the patient on 1200 mL fluid restriction, and encouraged to stay off IV fluids for now. Patient even received Lasix yesterday because her presentation showed some interstitial edema based on the chest x-ray. Her magnesium was corrected and it is 2.2 today. Her sodium this afternoon is 123. Patient is feeling better, she is less short of breath, no cough no wheezing, no chest pain. No fever no chills no hemoptysis no nausea no vomiting no abdominal pain, no diarrhea. Objective - Vital Signs Vital signs: Vital Signs Temp 97.8 F 09/14/18 12:00 Pulse 49 L 09/14/18 14:00 Resp 15 09/14/18 14:00 BP 131/51 09/14/18 14:00 Pulse Ox 94 L 09/14/18 14:00 Intake & Output 09/13/18 09/14/18 09/14/18 18:59 06:59 18:59 Intake Total 300 60 300 Output Total 1250 720 Balance 300 -1190 -420 Weight 56.9 kg Intake: IV 60 300 Magnesium Sulfate-D5w Pmx 200 1 gm In Dextrose/Water 1 100ml.bag @ 100 mls/hr IVPB Q1H [facility] Rx#: [id number] Magnesium Sulfate-D5w Pmx 100 1 gm In Dextrose/Water 1 100ml.bag @ 100 mls/hr IVPB Q1H [facility] Rx#: [id number] Sodium Chloride 3%( 60 0 Hypertonic) 500 ml @ 20 mls/hr IV .Q24H [facility] Rx#: [id number] Oral 300 Output: Urine 1250 720 Other: Voiding Method Diaper Indwelling Catheter Indwelling Catheter # Voids 4 1 # Bowel Movements 1 1 - Exam Physical Exam: Revealed a 73-year-old female in no distress. Head: Atraumatic, normocephalic. HEENT:[Neck is supple.] [No neck masses.] [No thyromegaly.] [No JVD.] Chest: [Minimal crackles at the bases, no rhonchi and no wheezes..] Cardiac Exam: [Normal S1 and S2, no S3 gallop, no murmur.] Abdomen: [Soft, nontender, no megaly, no rebound, no guarding, normal bowel sounds.] Extremities: [No clubbing, no edema, no cyanosis.] Neurological Exam: [No focal neurologic deficit.] Psychiatric: Normal mood, affect and mental status examination. Skin: No rashes. - Labs CBC & Chem 7: 09/14/18 05:29 09/14/18 12:44 Labs: Abnormal Lab Results - Last 24 Hours (Table) 09/13/18 09/13/18 09/13/18 Range/Units 06:21 16:20 17:14 RBC (3.80-5.40) m/uL Hgb (11.4-16.0) gm/dL Hct (34.0-46.0) % Plt Count (150-450) k/uL Lymphocytes # (1.0-4.8) k/uL APTT (22.0-30.0) sec Sodium 118 L* (137-145) mmol/L Chloride (98-107) mmol/L Creatinine (0.52-1.04) mg/dL POC Glucose (mg/dL) 190 H (75-99) mg/dL Hemoglobin A1c 7.0 H (4.0-6.0) % Magnesium (1.6-2.3) mg/dL 09/13/18 09/14/18 09/14/18 Range/Units 20:44 00:12 00:12 RBC (3.80-5.40) m/uL Hgb (11.4-16.0) gm/dL Hct (34.0-46.0) % Plt Count (150-450) k/uL Lymphocytes # (1.0-4.8) k/uL APTT 32.3 H (22.0-30.0) sec Sodium 117 L* (137-145) mmol/L Chloride (98-107) mmol/L Creatinine (0.52-1.04) mg/dL POC Glucose (mg/dL) 166 H (75-99) mg/dL Hemoglobin A1c (4.0-6.0) % Magnesium (1.6-2.3) mg/dL 09/14/18 09/14/18 09/14/18 Range/Units 02:03 05:29 05:29 RBC 3.27 L (3.80-5.40) m/uL Hgb 10.5 L (11.4-16.0) gm/dL Hct 30.8 L (34.0-46.0) % Plt Count 122 L (150-450) k/uL Lymphocytes # 0.6 L (1.0-4.8) k/uL APTT (22.0-30.0) sec Sodium 122 L (137-145) mmol/L Chloride 86 L (98-107) mmol/L Creatinine 0.49 L (0.52-1.04) mg/dL POC Glucose (mg/dL) 246 H (75-99) mg/dL Hemoglobin A1c (4.0-6.0) % Magnesium 1.4 L (1.6-2.3) mg/dL 09/14/18 09/14/18 09/14/18 Range/Units 07:01 11:57 12:44 RBC (3.80-5.40) m/uL Hgb (11.4-16.0) gm/dL Hct (34.0-46.0) % Plt Count (150-450) k/uL Lymphocytes # (1.0-4.8) k/uL APTT (22.0-30.0) sec Sodium 123 L (137-145) mmol/L Chloride (98-107) mmol/L Creatinine (0.52-1.04) mg/dL POC Glucose (mg/dL) 58 L 136 H (75-99) mg/dL Hemoglobin A1c (4.0-6.0) % Magnesium (1.6-2.3) mg/dL Microbiology - Last 24 Hours (Table) 09/12/18 14:50 Blood Culture - Preliminary Blood No Growth after 24 hours Assessment and Plan Assessment: #1 Hyponatremia suspect hypervolemic hyponatremia. #2 Acute exacerbation of diastolic congestive heart failure with small to moderate left-sided pleural effusion. #3 Atrial fibrillation, anticoagulated with Eliquis. #4 Diabetes mellitus. #5 Diabetic neuropathy. #6 Lower extremity wound. #7 History of CVA/TIA. #8 Chronic moderate persistent bronchial asthma. #9 Hypertension. #10 Hypothyroidism. #11 History of sarcoidosis. Recommendation: Continue fluid restrictions, gentle diuresis, continue to monitor sodium on a daily basis, we'll likely transfer out of the ICU within the next 24 hours. Follow-up chest x-ray on her congestive heart failure, and again is felt to be diastolic in nature. Patient did have a left pleural effusion, it is rather small, I don't believe thoracentesis will be necessary. Patient is definitely not quite ready for discharge planning at this point. She continues to have many complex issues as noted above, and all being addressed accordingly. But her main issue at present seems to be the low sodium and that congestive heart failure. Time with Patient: Less than 30
[2018-09-14] MEDS: FOLIC ACID 1 MG TAB PO SCH (16:12)
[2018-09-14] MEDS: CALCIUM CARB-VIT D 500MG-200UN 1 EACH TAB PO SCH (16:12)
[2018-09-14 17:20] LABS: Glucose,Whole Blood 190 mg/dL (75-99)
[2018-09-14] MEDS: OXYBUTYNIN 10 MG TAB.ER.24 PO SCH (21:12)
[2018-09-14] MEDS: ATORVASTATIN 10 MG TAB PO SCH (21:12)
[2018-09-14] MEDS: MELATONIN 3 MG TABLET PO PRN (21:12)
[2018-09-14] MEDS: LORATADINE 10 MG TAB PO SCH (21:12)
[2018-09-14 21:35] LABS: Glucose,Whole Blood 218 mg/dL (75-99)
[2018-09-14] MEDS: INSULIN DETEMIR 100 UNIT/ML 10 ML VIAL SQ SCH (21:36)
[2018-09-15 02:29] LABS: Glucose,Whole Blood 226 mg/dL (75-99)
[2018-09-15] MEDS: INSULIN ASPART 100 UNIT/ML 1 ML 10 ML VIAL SQ SCH ×5 (02:55→20:25)
[2018-09-15 06:09] LABS: Basophils % (A) 0 %; Eosinophils # (A) 0.1 k/uL (0-0.7); Eosinophils % (A) 2 %; HCT 30.7 % (34.0-46.0); HGB 10.6 gm/dL (11.4-16.0); Lymphocytes # (A) 0.6 k/uL (1.0-4.8); Lymphocytes % (A) 10 %; MCH 32.6 pg (25.0-35.0); MCHC 34.5 g/dL (31.0-37.0); MCV 94.5 fL (80.0-100.0); Mean Platelet Volume 6.8; Monocytes # (A) 0.5 k/uL (0-1.0); Monocytes % (A) 9 %; Neutrophils # (A) 4.7 k/uL (1.3-7.7); Neutrophils % (A) 76 %; Platelet Count 111 k/uL (150-450); RBC 3.25 m/uL (3.80-5.40); WBC 6.2 k/uL (3.8-10.6)
[2018-09-15 06:31] LABS: Anion Gap 5 mmol/L; Blood Urea Nitrogen 20 mg/dL (7-17); Calcium 8.6 mg/dL (8.4-10.2); Carbon Dioxide 31 mmol/L (22-30); Chloride 90 mmol/L (98-107); Glucose 52 mg/dL (74-99); Magnesium 1.8 mg/dL (1.6-2.3); Potassium 4.5 mmol/L (3.5-5.1); Sodium 126 mmol/L (137-145)
[2018-09-15] MEDS ORDERED: FUROSEMIDE 10 MG/ML 4 ML VIAL IV STA (06:38)
[2018-09-15] MEDS: PANTOPRAZOLE 40 MG TABLET PO SCH (06:49)
[2018-09-15] MEDS: LEVOTHYROXINE 137 MCG TAB PO SCH (06:49)
[2018-09-15 06:57] LABS: Glucose,Whole Blood 57 mg/dL (75-99)
[2018-09-15 07:26] LABS: Glucose,Whole Blood 72 mg/dL (75-99)
[2018-09-15] MEDS ORDERED: Magnesium Replacement Protocol 1 EACH MISC MISCELLANE PRN (07:36)
[2018-09-15 08:35] LABS: Glucose,Whole Blood 108 mg/dL (75-99)
[2018-09-15] MEDS: MAGNESIUM SULFATE-D5W PMX 1 GM in DEXTROSE/WATER 1 100ML.BAG IVPB SCH ×2 (09:02→11:14)
[2018-09-15] MEDS: APIXABAN 5 MG TAB PO SCH ×2 (09:03→20:25)
[2018-09-15] MEDS: LISINOPRIL 20 MG TAB PO SCH (09:03)
[2018-09-15] MEDS: amLODIPine 5 MG TAB PO SCH (09:03)
[2018-09-15] MEDS: AMIODARONE 200 MG TAB PO SCH (09:03)
[2018-09-15] MEDS: AMMONIUM LACTATE 12% LOTION 225 GM BTL TOPICAL SCH (09:04)
[2018-09-15] MEDS: PRIMIDONE 50 MG TAB PO SCH (09:04)
[2018-09-15] MEDS: METOPROLOL TARTRATE 25 MG TAB PO SCH ×2 (09:04→20:25)
--- NOTE | 2018-09-15 09:17 | XR ---
EXAMINATION TYPE: XR chest 1V DATE OF EXAM: 09/15/2018 HISTORY: Shortness of breath. COMPARISON: September 14, 2018 TECHNIQUE: Single view of the chest is submitted. FINDINGS: Demonstrated are scattered senescent parenchymal change. Continued pulmonary venous congestion with scattered infiltrates, cardiomegaly and small effusions. Hilar and mediastinal structures are within normal limits. Degenerative changes are seen of the dorsal spine. IMPRESSION: 1. Stable chest.
[2018-09-15] MEDS: TERIPARATIDE 20 MCG SQ SCH (11:11)
[2018-09-15] MEDS: IPRATROPIUM-ALBUTEROL 3 ML NEB INHALATION PRN (11:22)
[2018-09-15] MEDS: SYMBICORT 160-4.5 MCG INHALER INHALATION SCH ×2 (11:22→20:44)
[2018-09-15 11:56] LABS: Glucose,Whole Blood 155 mg/dL (75-99)
--- NOTE | 2018-09-15 12:06 | P.PN ---
Subjective Progress Note Date: 09/15/18 Principal diagnosis: Acute diastolic congestive heart failure and hyponatremia related to hypervolemia. This is a very pleasant 73-year-old female patient with follows with Dr. Odonnell is her primary care physician. She has a known history of moderate persistent chronic bronchial asthma, Parkinson's, skin cancer, congestive heart failure, CVA/TIA, diabetes mellitus with lower extremity neuropathy, GERD, hypertension, renal disease, hypothyroidism, sarcoidosis, macular degeneration, anxiety, atrial fibrillation anticoagulated with Eliquis. This has a history of right lower extremity wound is being followed in the wound clinic. She was brought here to the emergency room yesterday from an extended care facility with blood work revealing a sodium of 119. Her chest x-ray revealed evidence of fluid volume overload with a left pleural effusion as well. We are consulted for the same. She is seen today in consultation on the selective care unit. She is currently awake and alert in no acute distress. She is maintaining O2 saturations in the 90s on room air. She's been afebrile. White count 5.3. Hemoglobin 10.2. Sodium 120. Creatinine 0.43. Chest x-ray reveals evidence of cardiomegaly and interstitial changes with some pulmonary vascular congestion and a [id number] left pleural effusion. She is currently on Lasix 20 mg IV push every 12 hours. Patient was reevaluated again today on 09/14/2018, she is now in the intensive care unit, and she was transferred mostly because her sodium went down to 117 last night. Patient had to be placed on 3% saline, and after few hours of 3% saline, her sodium went up to 122. This was discontinued, patient remains on fluid restrictions, and she was seen by nephrology on consultation. It was felt that her hyponatremia is secondary to poor solute intake. Her sodium level went as high as 123 today, and her urine osmolality was 299. She had normal thyroid profile. And she was also noted to have hypomagnesemia. Nephrology recommended maintaining the patient on 1200 mL fluid restriction, and encouraged to stay off IV fluids for now. Patient even received Lasix yesterday because her presentation showed some interstitial edema based on the chest x-ray. Her magnesium was corrected and it is 2.2 today. Her sodium this afternoon is 123. Patient is feeling better, she is less short of breath, no cough no wheezing, no chest pain. No fever no chills no hemoptysis no nausea no vomiting no abdominal pain, no diarrhea. Patient was reevaluated today on 09/15/2018, remains in the ICU, patient was restarted again last night on 3% saline, and today's sodium is up to 126. Remains on fluid restrictions, remains on diuretics, and she received a dose of Lasix earlier today. Overall the patient is feeling better, she denies any cough no wheezing no shortness of breath no chest pain no headache no blurred vision no dizziness. No nausea no vomiting and no abdominal pain. Labs and chest x-ray were reviewed, chest x-ray did show evidence of interstitial edema. Objective - Vital Signs Vital signs: Vital Signs Temp 98.5 F 09/15/18 00:00 Pulse 52 L 09/15/18 11:33 Resp 12 09/15/18 11:00 BP 139/48 09/15/18 10:00 Pulse Ox 94 L 09/15/18 11:00 Intake & Output 09/14/18 09/15/18 09/15/18 18:59 06:59 18:59 Intake Total 300 200 200 Output Total 830 400 650 Balance -530 -200 -450 Weight 56.9 kg 69.1 kg Intake: IV 300 200 Magnesium Sulfate-D5w Pmx 200 1 gm In Dextrose/Water 1 100ml.bag @ 100 mls/hr IVPB Q1H [facility] Rx#: [id number] Magnesium Sulfate-D5w Pmx 100 1 gm In Dextrose/Water 1 100ml.bag @ 100 mls/hr IVPB Q1H [facility] Rx#: [id number] Sodium Chloride 3%( 0 200 Hypertonic) 500 ml @ 20 mls/hr IV .Q24H [facility] Rx#: [id number] Intake, IV Titration 200 Amount Magnesium Sulfate-D5w Pmx 200 1 gm In Dextrose/Water 1 100ml.bag @ 100 mls/hr IVPB Q1H [facility] Rx#: [id number] Output: Urine 830 400 650 Other: Voiding Method Indwelling Catheter Indwelling Catheter # Voids 1 - Exam Physical Exam: Revealed a 73-year-old female in no distress. Head: Atraumatic, normocephalic. HEENT:[Neck is supple.] [No neck masses.] [No thyromegaly.] [No JVD.] Chest: [Minimal crackles at the bases, no rhonchi and no wheezes..] Cardiac Exam: [Normal S1 and S2, no S3 gallop, no murmur.] Abdomen: [Soft, nontender, no megaly, no rebound, no guarding, normal bowel sounds.] Extremities: [No clubbing, no edema, no cyanosis.] Neurological Exam: [No focal neurologic deficit.] Psychiatric: Normal mood, affect and mental status examination. Skin: No rashes. - Labs CBC & Chem 7: 09/15/18 05:35 09/15/18 05:35 Labs: Abnormal Lab Results - Last 24 Hours (Table) 09/14/18 09/14/18 09/14/18 Range/Units 11:57 12:44 17:08 RBC (3.80-5.40) m/uL Hgb (11.4-16.0) gm/dL Hct (34.0-46.0) % Plt Count (150-450) k/uL Lymphocytes # (1.0-4.8) k/uL Sodium 123 L (137-145) mmol/L Chloride (98-107) mmol/L Carbon Dioxide (22-30) mmol/L BUN (7-17) mg/dL Glucose (74-99) mg/dL POC Glucose (mg/dL) 136 H 190 H (75-99) mg/dL Uric Acid (3.7-7.4) mg/dL 09/14/18 09/14/18 09/14/18 Range/Units 21:03 21:03 21:24 RBC (3.80-5.40) m/uL Hgb (11.4-16.0) gm/dL Hct (34.0-46.0) % Plt Count (150-450) k/uL Lymphocytes # (1.0-4.8) k/uL Sodium 121 L (137-145) mmol/L Chloride (98-107) mmol/L Carbon Dioxide (22-30) mmol/L BUN (7-17) mg/dL Glucose (74-99) mg/dL POC Glucose (mg/dL) 218 H (75-99) mg/dL Uric Acid 3.0 L (3.7-7.4) mg/dL 01/03/19 01/03/19 01/03/19 Range/Units 00:14 02:17 05:35 RBC (3.80-5.40) m/uL Hgb (11.4-16.0) gm/dL Hct (34.0-46.0) % Plt Count (150-450) k/uL Lymphocytes # (1.0-4.8) k/uL Sodium 122 L 126 L (137-145) mmol/L Chloride 90 L (98-107) mmol/L Carbon Dioxide 31 H (22-30) mmol/L BUN 20 H (7-17) mg/dL Glucose 52 L (74-99) mg/dL POC Glucose (mg/dL) 226 H (75-99) mg/dL Uric Acid (3.7-7.4) mg/dL 09/15/18 09/15/18 09/15/18 Range/Units 05:35 06:47 07:15 RBC 3.25 L (3.80-5.40) m/uL Hgb 10.6 L (11.4-16.0) gm/dL Hct 30.7 L (34.0-46.0) % Plt Count 111 L (150-450) k/uL Lymphocytes # 0.6 L (1.0-4.8) k/uL Sodium (137-145) mmol/L Chloride (98-107) mmol/L Carbon Dioxide (22-30) mmol/L BUN (7-17) mg/dL Glucose (74-99) mg/dL POC Glucose (mg/dL) 57 L 72 L (75-99) mg/dL Uric Acid (3.7-7.4) mg/dL 09/15/18 09/15/18 Range/Units 08:24 11:44 RBC (3.80-5.40) m/uL Hgb (11.4-16.0) gm/dL Hct (34.0-46.0) % Plt Count (150-450) k/uL Lymphocytes # (1.0-4.8) k/uL Sodium (137-145) mmol/L Chloride (98-107) mmol/L Carbon Dioxide (22-30) mmol/L BUN (7-17) mg/dL Glucose (74-99) mg/dL POC Glucose (mg/dL) 108 H 155 H (75-99) mg/dL Uric Acid (3.7-7.4) mg/dL Microbiology - Last 24 Hours (Table) 09/12/18 14:50 Blood Culture - Preliminary Blood No Growth after 48 hours Assessment and Plan Assessment: #1 Hyponatremia suspect hypervolemic hyponatremia. #2 Acute exacerbation of diastolic congestive heart failure with small to moderate left-sided pleural effusion. #3 Atrial fibrillation, anticoagulated with Eliquis. #4 Diabetes mellitus. #5 Diabetic neuropathy. #6 Lower extremity wound. #7 History of CVA/TIA. #8 Chronic moderate persistent bronchial asthma. #9 Hypertension. #10 Hypothyroidism. #11 History of sarcoidosis. Recommendation: Continue fluid restrictions, continue Lasix, continue to monitor sodium on a daily basis, we'll likely transfer out of the ICU today since her sodium is up to 126. Follow-up chest x-ray on her congestive heart failure, and again is felt to be diastolic in nature. Patient did have a left pleural effusion, it is rather small, I don't believe thoracentesis will be necessary. Patient is definitely not quite ready for discharge planning at this point. She continues to have many complex issues as noted above, we'll arrange for the patient to be transferred to a monitor bed on selective, and we' ll continue to follow. Time with Patient: Less than 30
[2018-09-15] MEDS: CARBIDOPA-LEVODOPA 25-100 MG 1 EACH TAB PO SCH ×3 (12:59→20:26)
[2018-09-15] MEDS: MULTIVITAMINS, THERA 1 EACH TAB PO SCH (12:59)
[2018-09-15] MEDS: TETRAHYDROZOLINE 0.05% OPHTH DROPS 15 ML BTL BOTH EYES PRN ×2 (12:59→20:26)
[2018-09-15] MEDS: THIAMINE 100 MG TAB PO SCH (12:59)
[2018-09-15] MEDS: FERROUS SULFATE 325 MG TAB PO SCH (12:59)
[2018-09-15] MEDS ORDERED: SODIUM CHLORIDE 3%(HYPERTONIC) 500 ML IV SCH (13:15)
--- NOTE | 2018-09-15 13:43 | P.PN ---
Subjective Patient is seen in follow-up for hyponatremia. Sodium level was 119 on admission and she was started on normal saline. Sodium improved only mildly to 120. Patient also received Lasix at a dose of [place] with no improvement in sodium. Currently resting in bed. GFR at baseline. Oral intake is fair. Sodium level has been improving gradually with 3% saline. Sodium was 126 this morning and is 124 this afternoon. Vital signs are stable. General: The patient appeared well nourished and normally developed. HEENT: Head exam is unremarkable. Neck is without jugular venous distension. LUNGS: Lungs are clear to auscultation and percussion. Breath sounds decreased. HEART: Rate and Rhythm are regular. First and second heart sounds normal. No murmurs, rubs or gallops. ABDOMEN: Abdominal exam reveals normal bowel sounds. Non-tender and non- distended. No evidence of peritonitis. EXTREMITITES: No clubbing, cyanosis, or edema. Objective - Vital Signs Vital signs: Vital Signs Temp 98.4 F 09/15/18 12:00 Pulse 51 L 09/15/18 12:00 Resp 15 09/15/18 12:00 BP 113/57 09/15/18 12:00 Pulse Ox 95 09/15/18 12:00 Intake & Output 09/14/18 09/15/18 09/15/18 18:59 06:59 18:59 Intake Total 300 200 200 Output Total 830 400 750 Balance -530 -200 -550 Weight 56.9 kg 69.1 kg Intake: IV 300 200 Magnesium Sulfate-D5w Pmx 200 1 gm In Dextrose/Water 1 100ml.bag @ 100 mls/hr IVPB Q1H [facility] Rx#: [id number] Magnesium Sulfate-D5w Pmx 100 1 gm In Dextrose/Water 1 100ml.bag @ 100 mls/hr IVPB Q1H [facility] Rx#: [id number] Sodium Chloride 3%( 0 200 Hypertonic) 500 ml @ 20 mls/hr IV .Q24H [facility] Rx#: [id number] Intake, IV Titration 200 Amount Magnesium Sulfate-D5w Pmx 200 1 gm In Dextrose/Water 1 100ml.bag @ 100 mls/hr IVPB Q1H [facility] Rx#: [id number] Output: Urine 830 400 750 Other: Voiding Method Indwelling Catheter Indwelling Catheter Indwelling Catheter # Voids 1 # Bowel Movements 1 - Labs CBC & Chem 7: 09/15/18 05:35 09/15/18 12:18 Labs: Abnormal Lab Results - Last 24 Hours (Table) 09/14/18 09/14/18 09/14/18 Range/Units 12:44 17:08 21:03 RBC (3.80-5.40) m/uL Hgb (11.4-16.0) gm/dL Hct (34.0-46.0) % Plt Count (150-450) k/uL Lymphocytes # (1.0-4.8) k/uL Sodium 123 L (137-145) mmol/L Chloride (98-107) mmol/L Carbon Dioxide (22-30) mmol/L BUN (7-17) mg/dL Glucose (74-99) mg/dL POC Glucose (mg/dL) 190 H (75-99) mg/dL Uric Acid 3.0 L (3.7-7.4) mg/dL 09/14/18 09/14/18 09/15/18 Range/Units 21:03 21:24 00:14 RBC (3.80-5.40) m/uL Hgb (11.4-16.0) gm/dL Hct (34.0-46.0) % Plt Count (150-450) k/uL Lymphocytes # (1.0-4.8) k/uL Sodium 121 L 122 L (137-145) mmol/L Chloride (98-107) mmol/L Carbon Dioxide (22-30) mmol/L BUN (7-17) mg/dL Glucose (74-99) mg/dL POC Glucose (mg/dL) 218 H (75-99) mg/dL Uric Acid (3.7-7.4) mg/dL 09/15/18 09/15/18 09/15/18 Range/Units 02:17 05:35 05:35 RBC 3.25 L (3.80-5.40) m/uL Hgb 10.6 L (11.4-16.0) gm/dL Hct 30.7 L (34.0-46.0) % Plt Count 111 L (150-450) k/uL Lymphocytes # 0.6 L (1.0-4.8) k/uL Sodium 126 L (137-145) mmol/L Chloride 90 L (98-107) mmol/L Carbon Dioxide 31 H (22-30) mmol/L BUN 20 H (7-17) mg/dL Glucose 52 L (74-99) mg/dL POC Glucose (mg/dL) 226 H (75-99) mg/dL Uric Acid (3.7-7.4) mg/dL 09/15/18 09/15/18 09/15/18 Range/Units 06:47 07:15 08:24 RBC (3.80-5.40) m/uL Hgb (11.4-16.0) gm/dL Hct (34.0-46.0) % Plt Count (150-450) k/uL Lymphocytes # (1.0-4.8) k/uL Sodium (137-145) mmol/L Chloride (98-107) mmol/L Carbon Dioxide (22-30) mmol/L BUN (7-17) mg/dL Glucose (74-99) mg/dL POC Glucose (mg/dL) 57 L 72 L 108 H (75-99) mg/dL Uric Acid (3.7-7.4) mg/dL 09/15/18 09/15/18 Range/Units 11:44 12:18 RBC (3.80-5.40) m/uL Hgb (11.4-16.0) gm/dL Hct (34.0-46.0) % Plt Count (150-450) k/uL Lymphocytes # (1.0-4.8) k/uL Sodium 124 L (137-145) mmol/L Chloride (98-107) mmol/L Carbon Dioxide (22-30) mmol/L BUN (7-17) mg/dL Glucose (74-99) mg/dL POC Glucose (mg/dL) 155 H (75-99) mg/dL Uric Acid (3.7-7.4) mg/dL Microbiology - Last 24 Hours (Table) 09/12/18 14:50 Blood Culture - Preliminary Blood No Growth after 48 hours Assessment and Plan Plan: Assessment: 1. Hyponatremia secondary to poor solute intake. Gradually improving with 3% saline. Sodium level 124 this afternoon. Urine osmolality 299. TSH normal. Uric acid noted to be low. PTH related peptide pending. 2. Diastolic CHF. 3. Hypomagnesemia from poor oral intake. Status post placement. Better. 4. Benign hypertension. Currently controlled. 5. Insulin-dependent diabetes mellitus. Plan: Resume 3%. Recheck sodium level at 6 PM. Encouraged oral intake, particularly protein. Added ensure 3 times daily. Maintain 1200 mL fluid restriction.
[2018-09-15] MEDS: FOLIC ACID 1 MG TAB PO SCH (16:19)
[2018-09-15] MEDS: CALCIUM CARB-VIT D 500MG-200UN 1 EACH TAB PO SCH (16:20)
[2018-09-15] MEDS: VIT A,C & E-LUTEIN-MINERALS 1 EACH TAB PO SCH (16:21)
[2018-09-15 17:03] LABS: Glucose,Whole Blood 198 mg/dL (75-99)
--- NOTE | 2018-09-15 19:41 | P.GSCN ---
History of Present Illness Consult date: 09/15/18 Reason for Consult: Hematuria Requesting physician: Carlos A Ryan History of present illness: She is a 73 year old woman well known to me. She was last seen in the office in July 2017 for evaluation of urinary incontinence. The urge component was predominant. On examination, the bladder was well supported, and bladder emptying was adequate. She has a history of significant lower extremity, which likely results in nocturnal polyuria. I suggested she decrease her fluid intake , as she drinks alot of water. I suggested she take cranberry supplements to decrease her UTI risk. She was given samples of Myrbetriq, but felt that this actually worsened her incontinence. She was advised to double void to improve bladder emptying. Her primary symptom was nocturnal urge incontinence, so oxybutynin chloride 5 mg at bedtime was prescribed. Her nocturnal urge incontinence initially improved, though better control of her glucose levels likely contributed to this improvement. Her incontinence then worsened, and oxybutynin was changed to tolterodine. The incontinence resolved, but her incomplete bladder emptying worsened. Urethral dilation was offered, which she declined. She denies any recent urinary incontinence. She was admitted with dyspnea, and is now being treated for hyponatremia. A Smith catheter was placed , and she has developed gross hematuria. I am consulted for this reason. She states that she had no evidence of hematuria prior to catheter placement. Review of Systems - Constitutional Reports weakness - Respiratory Reports dyspnea - Genitourinary Genitourinary: Reports hematuria, Denies dysuria Past Medical History Past Medical History: Atrial Fibrillation, Asthma, Cancer, Heart Failure, COPD, Diabetes Mellitus, Eye Disorder, GERD/Reflux, Hyperlipidemia, Hypertension, Musculoskeletal Disorder, Neurologic Disorder, Renal Disease, Respiratory Disorder, Thyroid Disorder Additional Past Medical History / Comment(s): Current R lower extremity ulcer - tx in [facility], IDDM type II with insulin pump not currently on, neuropathy bilateral legs/feet, bronchitis, 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 Past Anesthesia/Blood Transfusion Reactions: No Reported Reaction Additional Past Anesthesia/Blood Transfusion Reaction / Comm: CLAUSTERPHOBIA Past Psychological History: Anxiety Smoking Status: Never smoker Past Alcohol Use History: None Reported Additional Past Alcohol Use History / Comment(s): Patient is a lifelong nonsmoker. She denies any medical marijuana, marijuana, street drug or alcohol use at this time. Patient does have a history of heavy alcohol use and quit 12 years ago. She is currently on Social Security. She is currently at [facility] for rehab r/t falls/weakness, but otherwise lives at home with her . There are no pets in the home. And she has had no recent travel. Past Drug Use History: None Reported - Past Family History Father Family Medical History: Cancer, Prostate Disorder Additional Family Medical History / Comment(s): PROSTATE CA, HERNIA SX BACK SX Mother Family Medical History: Cancer Additional Family Medical History / Comment(s): Mother is . Mother had lung cancer. She was a smoker. Medications and Allergies Home Medications Medication Instructions Recorded Confirmed Type Metoprolol Tartrate [Lopressor] 50 mg PO BID 08/18/15 09/12/18 History Carbidopa-Levodopa 25-100 mg 1 tab PO TID 01/15/16 09/12/18 History [Sinemet 25-100 mg] Levothyroxine Sodium 137 mcg PO DAILY 04/28/18 09/12/18 History Multivitamins, Thera [Multivitamin 1 tab PO DAILY 04/28/18 09/12/18 History (formulary)] Amiodarone HCl [Pacerone] 200 mg PO DAILY 08/09/18 09/12/18 History Ammonium Lactate Lotion 1 applic TOPICAL DAILY 08/09/18 09/12/18 History [Lac-Hydrin 12% Lotion] Atorvastatin Calcium [Lipitor] 10 mg PO HS@2100 08/09/18 09/12/18 History Calcium Carb/Vitamin D3/Vit K1 1 tab PO DAILY@1700 08/09/18 09/12/18 History [Citracal Soft Chew] Docusate [Colace] 100 mg PO BID PRN 08/09/18 09/12/18 History Ergocalciferol [Vitamin D2 50,000 unit PO ROSA 08/09/18 09/12/18 History (DRISDOL)] Ferrous Sulfate [Iron] 325 mg PO DAILY 08/09/18 09/12/18 History Fluticasone/Salmeterol [Advair 1 inhalation PO RT-BID 08/09/18 09/12/18 History 500-50 Diskus] Insulin Detemir [Levemir] 7 unit SQ HS 08/09/18 09/12/18 History Lansoprazole 30 mg PO DAILY@0600 08/09/18 09/12/18 History Levocetirizine Dihydrochloride 5 mg PO HS 08/09/18 09/12/18 History [Xyzal] Melatonin 3 mg PO HS PRN 08/09/18 09/12/18 History Primidone [Mysoline] 50 mg PO DAILY 08/09/18 09/12/18 History Quinapril HCl [Accupril] 20 mg PO DAILY 08/09/18 09/12/18 History Teriparatide [Forteo] 20 mcg SQ DAILY 08/09/18 09/12/18 History Thiamine HCl [Vitamin B-1] 100 mg PO DAILY 08/09/18 09/12/18 History Tolterodine Tartrate [Detrol LA] 4 mg PO HS@2100 08/09/18 09/12/18 History Venlafaxine HCl ER [Effexor XR] 75 mg PO DAILY 08/09/18 09/12/18 History Vit C/E/Zn/Coppr/Lutein/Zeaxan 1 tab PO DAILY 08/09/18 09/12/18 History [Preservision Areds 2 Softgel] Acetaminophen Tab [Tylenol] 650 mg PO Q8H PRN tab 08/16/18 09/12/18 Rx Apixaban [Eliquis] 5 mg PO BID tab 08/16/18 09/12/18 Rx Ipratropium-Albuterol Nebulize 3 ml INHALATION RT-QID PRN 08/16/18 09/12/18 Rx [Duoneb 0.5 mg-3 mg/3 ml Soln] ampul.neb oxyCODONE-APAP 5-325MG [Percocet 0.5 tab PO TID PRN #5 tab 08/16/18 09/12/18 Rx 5-325 mg] Codeine Phosphate/Guaifenesin 10 ml PO QID 08/24/18 09/12/18 History [Guaifen-Codeine 100-10 mg/5 ml] Bisacodyl [Dulcolax] 10 mg RECTAL DAILY PRN 09/12/18 09/12/18 History Folic Acid 1 mg PO DAILY@1700 09/12/18 09/12/18 History INSULIN LISPRO (HumaLOG) [humaLOG] 0 unit SQ ACHS 09/12/18 09/12/18 History Magnesium Hydroxide [Milk of 1,200 mg PO DIRECTED PRN 09/12/18 09/12/18 History Magnesia] Mineral Oil [Fleet Mineral Oil] 133 ml RECTAL DIRECTED PRN 09/12/18 09/12/18 History Teriparatide [Forteo] 20 mcg SQ DAILY@0800 09/12/18 09/12/18 History Allergies Allergy/AdvReac Type Severity Reaction Status Date / Time cefdinir Allergy Severe Swelling Verified 09/12/18 16:45 Cephalosporins Allergy Unknown Verified 09/12/18 16:45 doxycycline Allergy Nausea & Verified 09/12/18 16:45 Vomiting erythromycin base Allergy Nausea & Verified 09/12/18 16:45 Vomiting & Diarrhea/RASH Penicillins Allergy Rash/Hives Verified 09/12/18 16:45 azithromycin AdvReac Nausea & Verified 09/12/18 16:45 Vomiting hydrochlorothiazide AdvReac Nausea & Verified 09/12/18 16:45 [From Dyazide] Vomiting levofloxacin [From Levaquin] AdvReac Abdominal Verified 09/12/18 16:45 Pain moxifloxacin HCl AdvReac Unknown Verified 09/12/18 16:45 [From Avelox] sulfamethoxazole AdvReac Nausea & Verified 09/12/18 16:45 [From Bactrim] Vomiting & Diarrhea triamterene [From Dyazide] AdvReac Nausea & Verified 09/12/18 16:45 Vomiting trimethoprim [From Bactrim] AdvReac Unknown Verified 09/12/18 16:45 Surgical - Exam Vital Signs Temp Pulse Resp BP Pulse Ox 98.5 F 56 L 18 192/96 92 L 09/12/18 14:03 09/12/18 14:03 09/12/18 14:03 09/12/18 14:03 09/12/18 14:03 - General well developed, well nourished, no distress - Neck no masses, trachea midline - Respiratory normal respiratory effort - Abdomen Abdomen: soft, non tender, no guarding, no rigid, no rebound - Psychiatric oriented to time, oriented to person, oriented to place, speech is normal, memory intact Results - Labs 09/15/18 05:35 09/15/18 18:04 Abnormal Lab Results - Last 24 Hours (Table) 09/14/18 09/14/18 09/14/18 Range/Units 17:08 21:03 21:03 RBC (3.80-5.40) m/uL Hgb (11.4-16.0) gm/dL Hct (34.0-46.0) % Plt Count (150-450) k/uL Lymphocytes # (1.0-4.8) k/uL Sodium 121 L (137-145) mmol/L Chloride (98-107) mmol/L Carbon Dioxide (22-30) mmol/L BUN (7-17) mg/dL Glucose (74-99) mg/dL POC Glucose (mg/dL) 190 H (75-99) mg/dL Uric Acid 3.0 L (3.7-7.4) mg/dL 09/14/18 09/15/18 09/15/18 Range/Units 21:24 00:14 02:17 RBC (3.80-5.40) m/uL Hgb (11.4-16.0) gm/dL Hct (34.0-46.0) % Plt Count (150-450) k/uL Lymphocytes # (1.0-4.8) k/uL Sodium 122 L (137-145) mmol/L Chloride (98-107) mmol/L Carbon Dioxide (22-30) mmol/L BUN (7-17) mg/dL Glucose (74-99) mg/dL POC Glucose (mg/dL) 218 H 226 H (75-99) mg/dL Uric Acid (3.7-7.4) mg/dL 09/15/18 09/15/18 09/15/18 Range/Units 05:35 05:35 06:47 RBC 3.25 L (3.80-5.40) m/uL Hgb 10.6 L (11.4-16.0) gm/dL Hct 30.7 L (34.0-46.0) % Plt Count 111 L (150-450) k/uL Lymphocytes # 0.6 L (1.0-4.8) k/uL Sodium 126 L (137-145) mmol/L Chloride 90 L (98-107) mmol/L Carbon Dioxide 31 H (22-30) mmol/L BUN 20 H (7-17) mg/dL Glucose 52 L (74-99) mg/dL POC Glucose (mg/dL) 57 L (75-99) mg/dL Uric Acid (3.7-7.4) mg/dL 09/15/18 09/15/18 09/15/18 Range/Units 07:15 08:24 11:44 RBC (3.80-5.40) m/uL Hgb (11.4-16.0) gm/dL Hct (34.0-46.0) % Plt Count (150-450) k/uL Lymphocytes # (1.0-4.8) k/uL Sodium (137-145) mmol/L Chloride (98-107) mmol/L Carbon Dioxide (22-30) mmol/L BUN (7-17) mg/dL Glucose (74-99) mg/dL POC Glucose (mg/dL) 72 L 108 H 155 H (75-99) mg/dL Uric Acid (3.7-7.4) mg/dL 09/15/18 Range/Units 12:18 RBC (3.80-5.40) m/uL Hgb (11.4-16.0) gm/dL Hct (34.0-46.0) % Plt Count (150-450) k/uL Lymphocytes # (1.0-4.8) k/uL Sodium 124 L (137-145) mmol/L Chloride (98-107) mmol/L Carbon Dioxide (22-30) mmol/L BUN (7-17) mg/dL Glucose (74-99) mg/dL POC Glucose (mg/dL) (75-99) mg/dL Uric Acid (3.7-7.4) mg/dL Microbiology - Last 24 Hours (Table) 09/12/18 14:50 Blood Culture - Preliminary Blood No Growth after 48 hours Diabetes panel 09/14/18 09/15/18 09/15/18 Range/Units 21:03 00:14 05:35 Sodium 121 L 122 L 126 L (137-145) mmol/L Potassium 4.5 (3.5-5.1) mmol/L Chloride 90 L (98-107) mmol/L Carbon Dioxide 31 H (22-30) mmol/L BUN 20 H (7-17) mg/dL Creatinine 0.69 (0.52-1.04) mg/dL Glucose 52 L (74-99) mg/dL Calcium 8.6 (8.4-10.2) mg/dL 09/15/18 Range/Units 12:18 Sodium 124 L (137-145) mmol/L Potassium (3.5-5.1) mmol/L Chloride (98-107) mmol/L Carbon Dioxide (22-30) mmol/L BUN (7-17) mg/dL Creatinine (0.52-1.04) mg/dL Glucose (74-99) mg/dL Calcium (8.4-10.2) mg/dL Calcium panel 09/15/18 Range/Units 05:35 Calcium 8.6 (8.4-10.2) mg/dL Phosphorus 4.0 (2.5-4.5) mg/dL Pituitary panel 09/14/18 09/15/18 09/15/18 Range/Units 21:03 00:14 05:35 Sodium 121 L 122 L 126 L (137-145) mmol/L Potassium 4.5 (3.5-5.1) mmol/L Chloride 90 L (98-107) mmol/L Carbon Dioxide 31 H (22-30) mmol/L BUN 20 H (7-17) mg/dL Creatinine 0.69 (0.52-1.04) mg/dL Glucose 52 L (74-99) mg/dL Calcium 8.6 (8.4-10.2) mg/dL 09/15/18 Range/Units 12:18 Sodium 124 L (137-145) mmol/L Potassium (3.5-5.1) mmol/L Chloride (98-107) mmol/L Carbon Dioxide (22-30) mmol/L BUN (7-17) mg/dL Creatinine (0.52-1.04) mg/dL Glucose (74-99) mg/dL Calcium (8.4-10.2) mg/dL Adrenal panel 09/14/18 09/15/18 09/15/18 Range/Units 21:03 00:14 05:35 Sodium 121 L 122 L 126 L (137-145) mmol/L Potassium 4.5 (3.5-5.1) mmol/L Chloride 90 L (98-107) mmol/L Carbon Dioxide 31 H (22-30) mmol/L BUN 20 H (7-17) mg/dL Creatinine 0.69 (0.52-1.04) mg/dL Glucose 52 L (74-99) mg/dL Calcium 8.6 (8.4-10.2) mg/dL 09/15/18 Range/Units 12:18 Sodium 124 L (137-145) mmol/L Potassium (3.5-5.1) mmol/L Chloride (98-107) mmol/L Carbon Dioxide (22-30) mmol/L BUN (7-17) mg/dL Creatinine (0.52-1.04) mg/dL Glucose (74-99) mg/dL Calcium (8.4-10.2) mg/dL Assessment and Plan (1) Gross hematuria Current Visit: Yes Status: Acute Code(s): R31.0 - GROSS HEMATURIA SNOMED Code(s): 162422446 Plan: Given that the patient did not note any hematuria until the catheter was placed , it appears that the probable cause of the hematuria is Smith catheter irritation. A renal ultrasound will be obtained to rule out any renal abnormalities. If the ultrasound is normal and the hematuria resolves upon removal of the Smith catheter, I would not feel that any further evaluation is warranted. However, if the hematuria persists upon removal of the Smith catheter, arrangements will be made for her to undergo office cystoscopy to rule out intravesical pathology. Time with Patient: Greater than 30
[2018-09-15] MEDS: ATORVASTATIN 10 MG TAB PO SCH (20:25)
[2018-09-15] MEDS: guaiFENesin-Coden 100-10MG/5ML 10 ML CUP PO PRN (20:26)
[2018-09-15] MEDS: OXYBUTYNIN 10 MG TAB.ER.24 PO SCH (20:26)
[2018-09-15 20:30] LABS: Glucose,Whole Blood 321 mg/dL (75-99)
[2018-09-15] MEDS: MELATONIN 3 MG TABLET PO PRN (20:34)
[2018-09-15] MEDS: LORATADINE 10 MG TAB PO SCH (20:39)
[2018-09-15] MEDS: INSULIN DETEMIR 100 UNIT/ML 10 ML VIAL SQ SCH (21:23)
--- NOTE | 2018-09-15 21:35 | P.PN ---
Subjective Progress Note Date: 09/14/18 Progress note being dictated for Interval history: This is a 73-year-old female admitted with severe hyponatremia , possible SIADH, possible CHF exacerbation and multiple other medical issues. Maintained on gentle IV fluid hydration , sodium increased to 120.Evaluated by a nephrology, IV fluids discontinued, Lasix and fluid restriction initiated. Magnesium currently being replaced. Afebrile. Evaluated by both cardiology and pulmonary with recommendations noted. 09/14/18 sodium and decreased to 117 last night patient transferred to ICU for 3 % sodium IV infusion. Sodium currently 123. Diet Intake fair. Telemetry sinus bradycardy, heart rate 50s. 3% saline discontinued, maintained on 1200 ml fluid restrictions. Urine osmolality 299. Chest x-ray reporting left lower lobe infiltrate, small stable bilateral effusions, possible mild central venous congestion, right upper lobe granuloma. Objective - Vital Signs Vital signs: Vital Signs Temp 98.8 F 09/14/18 21:00 Pulse 56 L 09/14/18 22:36 Resp 14 09/14/18 22:00 BP 133/76 09/14/18 22:00 Pulse Ox 94 L 09/14/18 22:00 Intake & Output 09/14/18 09/14/18 09/15/18 06:59 18:59 06:59 Intake Total 60 300 Output Total 1250 830 120 Balance -1190 -530 -120 Weight 56.9 kg Intake: IV 60 300 Magnesium Sulfate-D5w Pmx 200 1 gm In Dextrose/Water 1 100ml.bag @ 100 mls/hr IVPB Q1H LAMBERTO Rx#: [id number] Magnesium Sulfate-D5w Pmx 100 1 gm In Dextrose/Water 1 100ml.bag @ 100 mls/hr IVPB Q1H LAMBERTO Rx#: [id number] Sodium Chloride 3%( 60 0 Hypertonic) 500 ml @ 20 mls/hr IV .Q24H LAMBERTO Rx#: [id number] Output: Urine 1250 830 120 Other: Voiding Method Indwelling Catheter Indwelling Catheter Indwelling Catheter # Voids 1 # Bowel Movements 1 - Exam PHYSICAL EXAM: VITAL SIGNS: As above GENERAL: Sitting up in bed, no acute distress HEENT: Conjunctivae normal. eyes normal. Oral conjunctiva moist NECK: No JVD. No thyroid enlargement. No LNs CARDIOVASCULAR: S1, S2 muffled. Irregular, No murmur RESPIRATION: Breath sounds diminished in the bases. Fine bibasilar crackles, occasional expiratory wheeze. ABDOMEN: Soft, nontender . No guarding. no masses palpable. Bowel sounds heard. LEGS: No edema. no swelling PSYCHIATRY: Alert and oriented -3, mood and affect normal. NERVOUS SYSTEM: Cranial N 2-12 grossly normal. Moves all 4 limbs. Diffuse weakness No focal deficits. Skin: no ulcer no rash - Labs CBC & Chem 7: 09/15/18 05:35 09/15/18 18:04 Labs: Abnormal Lab Results - Last 24 Hours (Table) 09/13/18 09/14/18 09/14/18 Range/Units 06:21 00:12 00:12 RBC (3.80-5.40) m/uL Hgb (11.4-16.0) gm/dL Hct (34.0-46.0) % Plt Count (150-450) k/uL Lymphocytes # (1.0-4.8) k/uL APTT 32.3 H (22.0-30.0) sec Sodium 117 L* (137-145) mmol/L Chloride (98-107) mmol/L Creatinine (0.52-1.04) mg/dL POC Glucose (mg/dL) (75-99) mg/dL Hemoglobin A1c 7.0 H (4.0-6.0) % Uric Acid (3.7-7.4) mg/dL Magnesium (1.6-2.3) mg/dL 09/14/18 09/14/18 09/14/18 Range/Units 02:03 05:29 05:29 RBC 3.27 L (3.80-5.40) m/uL Hgb 10.5 L (11.4-16.0) gm/dL Hct 30.8 L (34.0-46.0) % Plt Count 122 L (150-450) k/uL Lymphocytes # 0.6 L (1.0-4.8) k/uL APTT (22.0-30.0) sec Sodium 122 L (137-145) mmol/L Chloride 86 L (98-107) mmol/L Creatinine 0.49 L (0.52-1.04) mg/dL POC Glucose (mg/dL) 246 H (75-99) mg/dL Hemoglobin A1c (4.0-6.0) % Uric Acid (3.7-7.4) mg/dL Magnesium 1.4 L (1.6-2.3) mg/dL 09/14/18 09/14/18 09/14/18 Range/Units 07:01 11:57 12:44 RBC (3.80-5.40) m/uL Hgb (11.4-16.0) gm/dL Hct (34.0-46.0) % Plt Count (150-450) k/uL Lymphocytes # (1.0-4.8) k/uL APTT (22.0-30.0) sec Sodium 123 L (137-145) mmol/L Chloride (98-107) mmol/L Creatinine (0.52-1.04) mg/dL POC Glucose (mg/dL) 58 L 136 H (75-99) mg/dL Hemoglobin A1c (4.0-6.0) % Uric Acid (3.7-7.4) mg/dL Magnesium (1.6-2.3) mg/dL 09/14/18 09/14/18 09/14/18 Range/Units 17:08 21:03 21:03 RBC (3.80-5.40) m/uL Hgb (11.4-16.0) gm/dL Hct (34.0-46.0) % Plt Count (150-450) k/uL Lymphocytes # (1.0-4.8) k/uL APTT (22.0-30.0) sec Sodium 121 L (137-145) mmol/L Chloride (98-107) mmol/L Creatinine (0.52-1.04) mg/dL POC Glucose (mg/dL) 190 H (75-99) mg/dL Hemoglobin A1c (4.0-6.0) % Uric Acid 3.0 L (3.7-7.4) mg/dL Magnesium (1.6-2.3) mg/dL 09/14/18 Range/Units 21:24 RBC (3.80-5.40) m/uL Hgb (11.4-16.0) gm/dL Hct (34.0-46.0) % Plt Count (150-450) k/uL Lymphocytes # (1.0-4.8) k/uL APTT (22.0-30.0) sec Sodium (137-145) mmol/L Chloride (98-107) mmol/L Creatinine (0.52-1.04) mg/dL POC Glucose (mg/dL) 218 H (75-99) mg/dL Hemoglobin A1c (4.0-6.0) % Uric Acid (3.7-7.4) mg/dL Magnesium (1.6-2.3) mg/dL Microbiology - Last 24 Hours (Table) 09/12/18 14:50 Blood Culture - Preliminary Blood No Growth after 48 hours Assessment and Plan Assessment: -Severe Hyponatremia, secondary to poor oral intake. Urine osmolality 299 -Acute on chronic CHF exacerbation, diastolic dysfunction with left-sided pleural effusion -Atrial fibrillation, chronic -Hypomagnesemia -Diabetes mellitus type 2, on insulin pump -Gastroesophageal reflux disease -Right lower extremity chronic ulcer -Mild to moderate protein calorie malnutrition -Anxiety Plan: Continue on current medication regime ,monitoring and symptomatic treatment. Echo pending. Maintain fluid restrictions. Repeat sodium tonight. Maintain nebulized bronchodilators, Symbicort. Encourage oral intake with close monitoring of blood sugars. Scheduled Ensure supplements between meals, not with. Subacute rehab at discharge discussed with significant other. The impression and plan of care has been dictated as directed. : I performed a history and examination of this patient, discussed the same with the dictator. I agree with the dictator's note ,documented as a scribe. Any additional findings or plans will be noted.
--- NOTE | 2018-09-15 21:47 | P.PN ---
Subjective Progress Note Date: 09/15/18 Progress note being dictated for Interval history: This is a 73-year-old female admitted with severe hyponatremia , possible SIADH, possible CHF exacerbation and multiple other medical issues. Maintained on gentle IV fluid hydration , sodium increased to 120.Evaluated by a nephrology, IV fluids discontinued, Lasix and fluid restriction initiated. Magnesium currently being replaced. Afebrile. Evaluated by both cardiology and pulmonary with recommendations noted. 09/14/18 sodium and decreased to 117 last night patient transferred to ICU for 3 % sodium IV infusion. Sodium currently 123. Diet Intake fair. Telemetry sinus bradycardy, heart rate 50s. 3% saline discontinued, maintained on 1200 ml fluid restrictions. Urine osmolality 299. Chest x-ray reporting left lower lobe infiltrate, small stable bilateral effusions, possible mild central venous congestion, right upper lobe granuloma. 09/15/18 developed hematuria after Smith catheter insertion. Urology consulted with recommendations pending. Fluid restrictions maintained. Sodium 124,3% IV saline resumed last night. Received a dose of IV Lasix earlier today. Requires encouragement with Diet intake. Chest x-ray stable. Review of systems: CONSTITUTIONAL: No fever, no malaise, no fatigue. HEENT: No recent visual problems or hearing problems. Denied any sore throat. CARDIOVASCULAR: No chest pain, orthopnea, PND, no palpitations, no syncope. PULMONARY: No shortness of breath, no cough, no hemoptysis. GASTROINTESTINAL: No diarrhea, no nausea, no vomiting, no abdominal pain. Normoactive bowel sounds. NEUROLOGICAL: No headaches, no weakness, no numbness. GENITOURINARY: Denies any burning micturition, frequency, or urgency. Positive hematuria, post insertion of Smith catheter ENDOCRINE: Denies any polyuria or polydipsia. PSYCHIATRIC: No anxiety, no depression The rest of the 14 point review of systems is negative Active Medications Acetaminophen (Tylenol Tab) 650 mg PO Q6HR PRN PRN Reason: Mild Pain or Fever > 100.5 Last Admin: 09/14/18 10:35 Dose: 650 mg Albuterol/Ipratropium (Duoneb 0.5 Mg-3 Mg/3 Ml Soln) 3 ml INHALATION RT-QID PRN PRN Reason: Shortness Of Breath Or Wheezing Last Admin: 09/15/18 11:22 Dose: 3 ml Amiodarone HCl (Cordarone) 200 mg PO DAILY [facility] Last Admin: 09/15/18 09:03 Dose: 200 mg Amlodipine Besylate (Norvasc) 5 mg PO DAILY [facility] Last Admin: 09/15/18 09:03 Dose: 5 mg Apixaban (Eliquis) 5 mg PO BID [facility] Last Admin: 09/15/18 20:25 Dose: 5 mg Atorvastatin Calcium (Lipitor) 10 mg PO HS@2100 [facility] Last Admin: 09/15/18 20:25 Dose: 10 mg Bisacodyl (Dulcolax) 10 mg RECTAL DAILY PRN PRN Reason: Constipation Budesonide/Formoterol Fumarate (Symbicort 160-4.5 Mcg Inhaler) 2 puff INHALATION RT-BID [facility] Last Admin: 09/15/18 20:44 Dose: 2 puff Calcium Carbonate (Oscal 500+D) 1 each PO DAILY@1700 [facility] Last Admin: 09/15/18 16:20 Dose: 1 each Carbidopa/Levodopa (Sinemet 25-100) 1 each PO TID [facility] Last Admin: 09/15/18 20:26 Dose: 1 each Docusate Sodium (Colace) 100 mg PO BID PRN PRN Reason: Constipation Ergocalciferol (Vitamin D2) 50,000 unit PO ROSA [facility] Ferrous Sulfate (Feosol) 325 mg PO 1200 [facility] Last Admin: 09/15/18 12:59 Dose: 325 mg Folic Acid (Folic Acid) 1 mg PO DAILY@1700 [facility] Last Admin: 09/15/18 16:19 Dose: 1 mg Guaifenesin/Codeine Phosphate (Robitussin Ac) 10 ml PO Q6H PRN PRN Reason: Cough Last Admin: 09/15/18 20:26 Dose: 10 ml Hydralazine HCl (Apresoline) 10 mg IVP Q6HR PRN PRN Reason: Blood Pressure - High Sodium Chloride (Hypertonic) (Saline 3% (Hypertonic)) 500 mls @ 25 mls/hr IV .Q20H [facility]; Protocol Stop: 09/16/18 13:38 Last Admin: 09/15/18 13:15 Dose: 20 mls/hr Insulin Aspart (Novolog) 0 unit SQ SACB1CM [facility]; Protocol Last Admin: 09/15/18 20:25 Dose: 5 unit Insulin Detemir (Levemir) 7 unit SQ HS [facility] Last Admin: 09/15/18 21:23 Dose: 7 unit Lactic Acid (Lac-Hydrin 12%) 1 applic TOPICAL DAILY [facility] Last Admin: 09/15/18 09:04 Dose: 1 applic Levothyroxine Sodium (Synthroid) 137 mcg PO DAILY@0630 [facility] Last Admin: 09/15/18 06:49 Dose: 137 mcg Lisinopril (Zestril) 20 mg PO DAILY [facility] Last Admin: 09/15/18 09:03 Dose: 20 mg Loratadine (Claritin) 10 mg PO HS [facility] Last Admin: 09/15/18 20:39 Dose: 10 mg Magnesium Hydroxide (Milk Of Magnesia) 1,200 mg PO DAILY PRN PRN Reason: Constipation Melatonin (Melatonin) 3 mg PO HS PRN PRN Reason: Insomnia Last Admin: 09/15/18 20:34 Dose: 3 mg Metoprolol Tartrate (Lopressor) 25 mg PO BID [facility] Last Admin: 09/15/18 20:25 Dose: 25 mg Miscellaneous Information (Magnesium Per Protocol) 1 each MISCELLANE DAILY PRN ; Protocol PRN Reason: Per Protocol Multivitamins (Theragran) 1 each PO 1200 [facility] Last Admin: 09/15/18 12:59 Dose: 1 each Multivitamins/Minerals (Ivite) 1 each PO 1200 [facility] Last Admin: 09/15/18 16:21 Dose: 1 each Naloxone HCl (Narcan) 0.2 mg IV Q2M PRN PRN Reason: Opioid Reversal Patient's Own ( Teriparatide [Forteo ] 20 Mcg) 20 mcg SQ DAILY@0800 [facility] Last Admin: 09/15/18 11:11 Dose: Not Given Ondansetron HCl (Zofran) 4 mg IVP Q6HR PRN PRN Reason: Nausea And Vomiting Last Admin: 09/14/18 05:38 Dose: 4 mg Oxybutynin Chloride (Ditropan Xl) 10 mg PO HS@2100 [facility] Last Admin: 09/15/18 20:26 Dose: 10 mg Oxycodone/Acetaminophen (Percocet 5-325) 0.5 each PO TID PRN PRN Reason: Pain Pantoprazole Sodium (Protonix) 40 mg PO DAILY@0600 [facility] Last Admin: 09/15/18 06:49 Dose: 40 mg Primidone (Mysoline) 50 mg PO DAILY [facility] Last Admin: 09/15/18 09:04 Dose: 50 mg Tetrahydrozoline HCl (Visine Eye Drops) 1 drops BOTH EYES TID PRN PRN Reason: Eye Irritation Last Admin: 09/15/18 20:26 Dose: 1 drops Thiamine HCl (Vitamin B-1) 100 mg PO 1200 [facility] Last Admin: 09/15/18 12:59 Dose: 100 mg Objective - Vital Signs Vital signs: Vital Signs Temp 98.4 F 09/15/18 12:00 Pulse 52 L 09/15/18 19:00 Resp 14 09/15/18 19:00 BP 150/55 09/15/18 19:00 Pulse Ox 98 09/15/18 19:00 Intake & Output 09/15/18 09/15/18 09/16/18 06:59 18:59 06:59 Intake Total 200 500 20 Output Total 400 1230 40 Balance -200 -730 -20 Weight 69.1 kg Intake: IV 200 Sodium Chloride 3%( 200 Hypertonic) 500 ml @ 20 mls/hr IV .Q24H [facility] Rx#: [id number] Intake, IV Titration 300 20 Amount Magnesium Sulfate-D5w Pmx 200 1 gm In Dextrose/Water 1 100ml.bag @ 100 mls/hr IVPB Q1H [facility] Rx#: [id number] Sodium Chloride 3%( 100 20 Hypertonic) 500 ml @ 20 mls/hr IV .Q24H [facility] Rx#: [id number] Oral 200 Output: Urine 400 1230 40 Other: Voiding Method Indwelling Catheter Indwelling Catheter # Voids 1 # Bowel Movements 1 - Exam PHYSICAL EXAM: VITAL SIGNS: As above GENERAL: Alert and oriented 2, no acute distress HEENT: Conjunctivae normal. eyes normal. Oral conjunctiva moist NECK: No JVD. No thyroid enlargement. No LNs CARDIOVASCULAR: S1, S2 muffled. Irregular, No murmur RESPIRATION: Breath sounds diminished in the bases. Fine bibasilar crackles. ABDOMEN: Soft, nontender . No guarding. no masses palpable. Bowel sounds heard. LEGS: No edema. no swelling NERVOUS SYSTEM: Cranial N 2-12 grossly normal. Moves all 4 limbs. Diffuse weakness. No focal deficits. Skin: no ulcer no rash - Labs CBC & Chem 7: 09/15/18 05:35 01/03/19 18:04 Labs: Abnormal Lab Results - Last 24 Hours (Table) 09/14/18 09/15/18 09/15/18 Range/Units 21:24 00:14 02:17 RBC (3.80-5.40) m/uL Hgb (11.4-16.0) gm/dL Hct (34.0-46.0) % Plt Count (150-450) k/uL Lymphocytes # (1.0-4.8) k/uL Sodium 122 L (137-145) mmol/L Chloride (98-107) mmol/L Carbon Dioxide (22-30) mmol/L BUN (7-17) mg/dL Glucose (74-99) mg/dL POC Glucose (mg/dL) 218 H 226 H (75-99) mg/dL 09/15/18 09/15/18 09/15/18 Range/Units 05:35 05:35 06:47 RBC 3.25 L (3.80-5.40) m/uL Hgb 10.6 L (11.4-16.0) gm/dL Hct 30.7 L (34.0-46.0) % Plt Count 111 L (150-450) k/uL Lymphocytes # 0.6 L (1.0-4.8) k/uL Sodium 126 L (137-145) mmol/L Chloride 90 L (98-107) mmol/L Carbon Dioxide 31 H (22-30) mmol/L BUN 20 H (7-17) mg/dL Glucose 52 L (74-99) mg/dL POC Glucose (mg/dL) 57 L (75-99) mg/dL 09/15/18 09/15/18 09/15/18 Range/Units 07:15 08:24 11:44 RBC (3.80-5.40) m/uL Hgb (11.4-16.0) gm/dL Hct (34.0-46.0) % Plt Count (150-450) k/uL Lymphocytes # (1.0-4.8) k/uL Sodium (137-145) mmol/L Chloride (98-107) mmol/L Carbon Dioxide (22-30) mmol/L BUN (7-17) mg/dL Glucose (74-99) mg/dL POC Glucose (mg/dL) 72 L 108 H 155 H (75-99) mg/dL 09/15/18 09/15/18 09/15/18 Range/Units 12:18 16:52 18:04 RBC (3.80-5.40) m/uL Hgb (11.4-16.0) gm/dL Hct (34.0-46.0) % Plt Count (150-450) k/uL Lymphocytes # (1.0-4.8) k/uL Sodium 124 L 124 L (137-145) mmol/L Chloride (98-107) mmol/L Carbon Dioxide (22-30) mmol/L BUN (7-17) mg/dL Glucose (74-99) mg/dL POC Glucose (mg/dL) 198 H (75-99) mg/dL 09/15/18 Range/Units 20:18 RBC (3.80-5.40) m/uL Hgb (11.4-16.0) gm/dL Hct (34.0-46.0) % Plt Count (150-450) k/uL Lymphocytes # (1.0-4.8) k/uL Sodium (137-145) mmol/L Chloride (98-107) mmol/L Carbon Dioxide (22-30) mmol/L BUN (7-17) mg/dL Glucose (74-99) mg/dL POC Glucose (mg/dL) 321 H (75-99) mg/dL Microbiology - Last 24 Hours (Table) 09/12/18 14:50 Blood Culture - Preliminary Blood No Growth after 72 hours Assessment and Plan Assessment: -Severe Hyponatremia, secondary to poor oral intake. Urine osmolality 299 -Acute on chronic CHF exacerbation, diastolic dysfunction with left-sided pleural effusion -Atrial fibrillation, chronic -Hypomagnesemia -Diabetes mellitus type 2, on insulin pump -Gastroesophageal reflux disease -Right lower extremity chronic ulcer -Mild to moderate protein calorie malnutrition -Anxiety Plan: Continue on current medication regime ,monitoring and symptomatic treatment. Fluid restrictions, diuretics as per nephrology. Maintain nebulized bronchodilators, Symbicort. Close monitoring of electrolytes with repeat labs ordered for am. Subacute rehab at discharge discussed with significant other. The impression and plan of care has been dictated as directed. : I performed a history and examination of this patient, discussed the same with the dictator. I agree with the dictator's note ,documented as a scribe. Any additional findings or plans will be noted.
[2018-09-16] MEDS: INSULIN ASPART 100 UNIT/ML 1 ML 10 ML VIAL SQ SCH ×5 (01:05→22:30)
--- NOTE | 2018-09-16 01:05 | US ---
EXAMINATION TYPE: US renals and bladder DATE OF EXAM: 09/15/2018 COMPARISON: 10/18/2015 CLINICAL HISTORY: Hematuria. Hematuria. EXAM MEASUREMENTS: Right Kidney: 9.6 x 4.7 x 3.9 cm Left Kidney: 9.6 x 5.0 x 4.4 cm Right Kidney: Hypoechoic area mid lesion vs normal renal tissue 1.7 x 1.8 x 1.6cm. Left Kidney: Hypoechoic are upper pole 3.0 x 3.0 x 2.5 cm Bladder: Catheter in place. Bilateral Jets seen: No There is no evidence for hydronephrosis at this point in time. No nephrolithiasis is seen. IMPRESSION: No renal stone or obstruction seen. Rounded 3 cm hypoechoic area in the upper pole left kidney is ind eterminate. This could be a change compared to old ultrasound of 10/18/2015. CT scan is recommended for further evaluation if clinically indicated.
[2018-09-16 01:15] LABS: Glucose,Whole Blood 84 mg/dL (75-99)
[2018-09-16] MEDS: guaiFENesin-Coden 100-10MG/5ML 10 ML CUP PO PRN (02:34)
[2018-09-16 05:45] LABS: Basophils % (A) 0 %; Eosinophils # (A) 0.2 k/uL (0-0.7); Eosinophils % (A) 3 %; HCT 30.2 % (34.0-46.0); Lymphocytes # (A) 0.7 k/uL (1.0-4.8); Lymphocytes % (A) 12 %; MCH 32.2 pg (25.0-35.0); MCV 97.4 fL (80.0-100.0); Mean Platelet Volume 7.1; Monocytes # (A) 0.4 k/uL (0-1.0); Monocytes % (A) 6 %; Neutrophils # (A) 4.5 k/uL (1.3-7.7); Neutrophils % (A) 75 %; Platelet Count 128 k/uL (150-450); WBC 5.9 k/uL (3.8-10.6)
[2018-09-16 06:01] LABS: Anion Gap 2 mmol/L; Blood Urea Nitrogen 23 mg/dL (7-17); Calcium 8.6 mg/dL (8.4-10.2); Carbon Dioxide 33 mmol/L (22-30); Chloride 94 mmol/L (98-107); Glucose 55 mg/dL (74-99); Magnesium 1.6 mg/dL (1.6-2.3); Phosphorus 3.6 mg/dL (2.5-4.5); Potassium 5.4 mmol/L (3.5-5.1); Sodium 129 mmol/L (137-145)
[2018-09-16] MEDS: LEVOTHYROXINE 137 MCG TAB PO SCH (06:25)
[2018-09-16] MEDS: PANTOPRAZOLE 40 MG TABLET PO SCH (06:25)
[2018-09-16] MEDS ORDERED: Magnesium Replacement Protocol 1 EACH MISC MISCELLANE PRN (06:44)
[2018-09-16 07:05] LABS: Glucose,Whole Blood 60 mg/dL (75-99)
[2018-09-16 07:18] LABS: Glucose,Whole Blood 68 mg/dL (75-99)
[2018-09-16] MEDS: MAGNESIUM SULFATE-D5W PMX 1 GM in DEXTROSE/WATER 1 100ML.BAG IVPB SCH ×2 (07:18→08:14)
[2018-09-16 07:33] LABS: Glucose,Whole Blood 72 mg/dL (75-99)
[2018-09-16] MEDS: SYMBICORT 160-4.5 MCG INHALER INHALATION SCH ×2 (07:39→19:10)
[2018-09-16] MEDS: PRIMIDONE 50 MG TAB PO SCH (08:13)
[2018-09-16] MEDS: APIXABAN 5 MG TAB PO SCH (08:13)
[2018-09-16] MEDS: amLODIPine 5 MG TAB PO SCH (08:13)
[2018-09-16] MEDS: METOPROLOL TARTRATE 25 MG TAB PO SCH ×2 (08:13→20:28)
[2018-09-16] MEDS: LISINOPRIL 20 MG TAB PO SCH (08:14)
[2018-09-16] MEDS: AMMONIUM LACTATE 12% LOTION 225 GM BTL TOPICAL SCH (08:14)
[2018-09-16] MEDS: AMIODARONE 200 MG TAB PO SCH (08:14)
[2018-09-16] MEDS: TERIPARATIDE 20 MCG SQ SCH (08:14)
--- NOTE | 2018-09-16 08:58 | XR ---
EXAMINATION TYPE: XR chest 1V DATE OF EXAM: 09/16/2018 COMPARISON: 09/15/2018 HISTORY: Shortness of breath TECHNIQUE: Single frontal view of the chest is obtained. FINDINGS: Heart is enlarged and is persistent bilateral effusions and interstitial pattern. Prominen ce of the mediastinum and calcified lymph nodes chronic granulomatous disease. Chronic appearing defo rmities of the shoulders. No pneumothorax. Granuloma in the left upper lobe noted. IMPRESSION: 1. Correlate for interstitial venous congestion or interstitial pneumonitis with bilateral pleural ef fusion and basilar infiltrate. 2. Changes of chronic granulomatous disease.
[2018-09-16] MEDS ORDERED: FUROSEMIDE 10 MG/ML 4 ML VIAL IV STA (10:03)
--- NOTE | 2018-09-16 10:36 | P.PN ---
Subjective Patient is seen in follow-up for hyponatremia. Sodium level was 119 on admission and she was started on normal saline. Sodium improved only mildly to 120. Patient also received Lasix at a dose of [place] with no improvement in sodium. Currently resting in bed. GFR at baseline. Oral intake is fair. Sodium level has been improving gradually with 3% saline. Sodium level 129 this morning. Vital signs are stable. General: The patient appeared well nourished and normally developed. HEENT: Head exam is unremarkable. Neck is without jugular venous distension. LUNGS: Lungs are clear to auscultation and percussion. Breath sounds decreased. HEART: Rate and Rhythm are regular. First and second heart sounds normal. No murmurs, rubs or gallops. ABDOMEN: Abdominal exam reveals normal bowel sounds. Non-tender and non- distended. No evidence of peritonitis. EXTREMITITES: No clubbing, cyanosis, or edema. Objective - Vital Signs Vital signs: Vital Signs Temp 98.9 F 09/16/18 08:00 Pulse 49 L 09/16/18 10:00 Resp 20 09/16/18 10:00 BP 132/49 09/16/18 10:00 Pulse Ox 95 09/16/18 10:00 Intake & Output 09/15/18 09/16/18 09/16/18 18:59 06:59 18:59 Intake Total 500 725 220 Output Total 1230 635 250 Balance -730 90 -30 Weight 64.3 kg 64.3 kg Intake: IV 175 0 Sodium Chloride 3%( 175 0 Hypertonic) 500 ml @ 25 mls/hr IV .Q20H [facility] Rx#: [id number] Intake, IV Titration 300 20 100 Amount Magnesium Sulfate-D5w Pmx 200 1 gm In Dextrose/Water 1 100ml.bag @ 100 mls/hr IVPB Q1H [facility] Rx#: [id number] Magnesium Sulfate-D5w Pmx 100 1 gm In Dextrose/Water 1 100ml.bag @ 100 mls/hr IVPB Q1H [facility] Rx#: [id number] Sodium Chloride 3%( 100 20 Hypertonic) 500 ml @ 25 mls/hr IV .Q20H [facility] Rx#: [id number] Oral 200 530 120 Output: Urine 1230 635 250 Other: Voiding Method Indwelling Catheter Indwelling Catheter Indwelling Catheter # Voids 1 1 # Bowel Movements 1 - Labs CBC & Chem 7: 01/04/19 05:12 09/16/18 05:12 Labs: Abnormal Lab Results - Last 24 Hours (Table) 09/15/18 09/15/18 09/15/18 Range/Units 11:44 12:18 16:52 RBC (3.80-5.40) m/uL Hgb (11.4-16.0) gm/dL Hct (34.0-46.0) % Plt Count (150-450) k/uL Lymphocytes # (1.0-4.8) k/uL Sodium 124 L (137-145) mmol/L Potassium (3.5-5.1) mmol/L Chloride (98-107) mmol/L Carbon Dioxide (22-30) mmol/L BUN (7-17) mg/dL Glucose (74-99) mg/dL POC Glucose (mg/dL) 155 H 198 H (75-99) mg/dL 09/15/18 09/15/18 09/16/18 Range/Units 18:04 20:18 00:57 RBC (3.80-5.40) m/uL Hgb (11.4-16.0) gm/dL Hct (34.0-46.0) % Plt Count (150-450) k/uL Lymphocytes # (1.0-4.8) k/uL Sodium 124 L 127 L (137-145) mmol/L Potassium (3.5-5.1) mmol/L Chloride (98-107) mmol/L Carbon Dioxide (22-30) mmol/L BUN (7-17) mg/dL Glucose (74-99) mg/dL POC Glucose (mg/dL) 321 H (75-99) mg/dL 09/16/18 09/16/18 09/16/18 Range/Units 05:12 05:12 06:53 RBC 3.10 L (3.80-5.40) m/uL Hgb 10.0 L (11.4-16.0) gm/dL Hct 30.2 L (34.0-46.0) % Plt Count 128 L (150-450) k/uL Lymphocytes # 0.7 L (1.0-4.8) k/uL Sodium 129 L (137-145) mmol/L Potassium 5.4 H (3.5-5.1) mmol/L Chloride 94 L (98-107) mmol/L Carbon Dioxide 33 H (22-30) mmol/L BUN 23 H (7-17) mg/dL Glucose 55 L (74-99) mg/dL POC Glucose (mg/dL) 60 L (75-99) mg/dL 09/16/18 09/16/18 Range/Units 07:07 07:22 RBC (3.80-5.40) m/uL Hgb (11.4-16.0) gm/dL Hct (34.0-46.0) % Plt Count (150-450) k/uL Lymphocytes # (1.0-4.8) k/uL Sodium (137-145) mmol/L Potassium (3.5-5.1) mmol/L Chloride (98-107) mmol/L Carbon Dioxide (22-30) mmol/L BUN (7-17) mg/dL Glucose (74-99) mg/dL POC Glucose (mg/dL) 68 L 72 L (75-99) mg/dL Microbiology - Last 24 Hours (Table) 09/12/18 14:50 Blood Culture - Preliminary Blood No Growth after 72 hours Assessment and Plan Plan: Assessment: 1. Hyponatremia secondary to poor solute intake. Gradually improving with 3% saline. Sodium level 129 today. Urine osmolality 299. TSH normal. Uric acid noted to be low. PTH related peptide pending. 2. Diastolic CHF. 3. Hypomagnesemia from poor oral intake. Status post placement. 4. Benign hypertension. Currently controlled. 5. Insulin-dependent diabetes mellitus. 6. Mild hyperkalemia. Patient is on lisinopril. Plan: Currently off all IV fluids. Encouraged oral intake, particularly protein. Added ensure 3 times daily. Maintain 1200 mL fluid restriction. Add salt tabs 1 g twice daily. Discontinue lisinopril. Add amlodipine 5 mg daily. Repeat sodium and potassium level this evening.
--- NOTE | 2018-09-16 11:18 | ECHOF ---
Referral Reason:sob MEASUREMENTS -------- HEIGHT: 152.4 cm WEIGHT: 68.9 kg BP: 136/58 RVIDd: 3.2 cm (< 3.3) IVSd: 1.1 cm (0.6 - 1.1) LVIDd: 4.0 cm (3.9 - 5.3) LVPWd: 1.1 cm (0.6 - 1.1) IVSs: 1.8 cm LVIDs: 2.8 cm LVPWs: 1.3 cm LA Diam: 3.6 cm (2.7 - 3.8) LAESV Index (A-L): 29.62 ml/m Ao Diam: 2.9 cm (2.0 - 3.7) AV Cusp: 1.6 cm (1.5 - 2.6) MV EXCURSION: 7.289 mm (> 18.000) MV EF SLOPE: 15 mm/s (70 - 150) EPSS: 1.2 cm MV E Riccardo: 2.11 m/s MV DecT: 460 ms MV A Riccardo: 0.58 m/s MV E/A Ratio: 3.62 AV maxP.63 mmHg AV meanP.91 mmHg RAP: 5.00 mmHg RVSP: 45.27 mmHg FINDINGS -------- Sinus rhythm. This was a technically adequate study. The left ventricular size is normal. There is borderline concentric left ventricular hypertrophy. Overall left ventricular systolic function is normal with, an EF between 60 - 65 %. The right ventricle is normal in size. LA is midly dilated 29-33ml/m2. The right atrium is normal in size. There is mild aortic valve sclerosis. Peak/mean gradient across the Aortic Valve is 11.63mmHg / 5.9 1mmHg. The mitral valve leaflets are moderately thickened. Moderate mitral annular calcification present. Mild mitral regurgitation is present. The peak and mean MV gradients are 21.43mmHg 5.04mmHg as m easured by doppler. Moderate tricuspid regurgitation present. There is mild to moderate pulmonary hypertension. The r ight ventricular systolic pressure, as measured by Doppler, is 45.27mmHg. Trace/mild (physiologic) pulmonic regurgitation. The aortic root size is normal. Normal inferior vena cava with normal inspiratory collapse consistent with estimated right atrial pre ssure of 5 mmHg. There is no pericardial effusion. CONCLUSIONS -------- 1. Sinus rhythm. 2. This was a technically adequate study. 3. The left ventricular size is normal. 4. There is borderline concentric left ventricular hypertrophy. 5. Overall left ventricular systolic function is normal with, an EF between 60 - 65 %. 6. The right ventricle is normal in size. 7. LA is midly dilated 29-33ml/m2. 8. The right atrium is normal in size. 9. There is mild aortic valve sclerosis. 10. Peak/mean gradient across the Aortic Valve is 11.63mmHg / 5.91mmHg. 11. The mitral valve leaflets are moderately thickened. 12. Moderate mitral annular calcification present. 13. Mild mitral regurgitation is present. 14. The peak and mean MV gradients are 21.43mmHg 5.04mmHg as measured by doppler. 15. Moderate tricuspid regurgitation present. 16. There is mild to moderate pulmonary hypertension. 17. The right ventricular systolic pressure, as measured by Doppler, is 45.27mmHg. 18. Trace/mild (physiologic) pulmonic regurgitation. 19. The aortic root size is normal. 20. Normal inferior vena cava with normal inspiratory collapse consistent with estimated right atrial pressure of 5 mmHg. 21. There is no pericardial effusion. LOADER OPERATOR/GROUND LEADER: Reyna Rivas RDCS
[2018-09-16 11:32] LABS: Glucose,Whole Blood 242 mg/dL (75-99)
[2018-09-16] MEDS: THIAMINE 100 MG TAB PO SCH (12:47)
[2018-09-16] MEDS: CARBIDOPA-LEVODOPA 25-100 MG 1 EACH TAB PO SCH ×4 (12:47→21:39)
[2018-09-16] MEDS: MULTIVITAMINS, THERA 1 EACH TAB PO SCH (12:47)
[2018-09-16] MEDS: FERROUS SULFATE 325 MG TAB PO SCH (12:47)
--- NOTE | 2018-09-16 13:15 | P.PN ---
Subjective Progress Note Date: 09/16/18 Principal diagnosis: Acute diastolic congestive heart failure and hyponatremia related to hypervolemia. This is a very pleasant 73-year-old female patient with follows with Dr. Odonnell is her primary care physician. She has a known history of moderate persistent chronic bronchial asthma, Parkinson's, skin cancer, congestive heart failure, CVA/TIA, diabetes mellitus with lower extremity neuropathy, GERD, hypertension, renal disease, hypothyroidism, sarcoidosis, macular degeneration, anxiety, atrial fibrillation anticoagulated with Eliquis. This has a history of right lower extremity wound is being followed in the wound clinic. She was brought here to the emergency room yesterday from an extended care facility with blood work revealing a sodium of 119. Her chest x-ray revealed evidence of fluid volume overload with a left pleural effusion as well. We are consulted for the same. She is seen today in consultation on the selective care unit. She is currently awake and alert in no acute distress. She is maintaining O2 saturations in the 90s on room air. She's been afebrile. White count 5.3. Hemoglobin 10.2. Sodium 120. Creatinine 0.43. Chest x-ray reveals evidence of cardiomegaly and interstitial changes with some pulmonary vascular congestion and a [id number] left pleural effusion. She is currently on Lasix 20 mg IV push every 12 hours. Patient was reevaluated again today on 09/14/2018, she is now in the intensive care unit, and she was transferred mostly because her sodium went down to 117 last night. Patient had to be placed on 3% saline, and after few hours of 3% saline, her sodium went up to 122. This was discontinued, patient remains on fluid restrictions, and she was seen by nephrology on consultation. It was felt that her hyponatremia is secondary to poor solute intake. Her sodium level went as high as 123 today, and her urine osmolality was 299. She had normal thyroid profile. And she was also noted to have hypomagnesemia. Nephrology recommended maintaining the patient on 1200 mL fluid restriction, and encouraged to stay off IV fluids for now. Patient even received Lasix yesterday because her presentation showed some interstitial edema based on the chest x-ray. Her magnesium was corrected and it is 2.2 today. Her sodium this afternoon is 123. Patient is feeling better, she is less short of breath, no cough no wheezing, no chest pain. No fever no chills no hemoptysis no nausea no vomiting no abdominal pain, no diarrhea. Patient was reevaluated today on 09/15/2018, remains in the ICU, patient was restarted again last night on 3% saline, and today's sodium is up to 126. Remains on fluid restrictions, remains on diuretics, and she received a dose of Lasix earlier today. Overall the patient is feeling better, she denies any cough no wheezing no shortness of breath no chest pain no headache no blurred vision no dizziness. No nausea no vomiting and no abdominal pain. Labs and chest x-ray were reviewed, chest x-ray did show evidence of interstitial edema. Reevaluated today on 09/16/2018, patient remains in the ICU, her sodium drifted again down and she required to be placed on 3% saline last night by nephrology. However the level was not worrisome enough to consider 3% saline since the lowest recorded yesterday was 122, today her sodium is up to 129 and later checked today it was 127. Patient is asymptomatic, denies any cough no wheezing no shortness of breath, her chest x-ray continues to show evidence of interstitial edema, hence I recommended a dose of Lasix 40 mg IV push which was given earlier today. Objective - Vital Signs Vital signs: Vital Signs Temp 98.9 F 09/16/18 08:00 Pulse 49 L 09/16/18 10:00 Resp 20 09/16/18 10:00 BP 132/49 09/16/18 10:00 Pulse Ox 95 09/16/18 10:00 Intake & Output 09/15/18 09/16/18 09/16/18 18:59 06:59 18:59 Intake Total 500 725 220 Output Total 1230 635 250 Balance -730 90 -30 Weight 64.3 kg 64.3 kg Intake: IV 175 0 Sodium Chloride 3%( 175 0 Hypertonic) 500 ml @ 25 mls/hr IV .Q20H [facility] Rx#: [id number] Intake, IV Titration 300 20 100 Amount Magnesium Sulfate-D5w Pmx 200 1 gm In Dextrose/Water 1 100ml.bag @ 100 mls/hr IVPB Q1H [facility] Rx#: [id number] Magnesium Sulfate-D5w Pmx 100 1 gm In Dextrose/Water 1 100ml.bag @ 100 mls/hr IVPB Q1H [facility] Rx#: [id number] Sodium Chloride 3%( 100 20 Hypertonic) 500 ml @ 25 mls/hr IV .Q20H [facility] Rx#: [id number] Oral 200 530 120 Output: Urine 1230 635 250 Other: Voiding Method Indwelling Catheter Indwelling Catheter Indwelling Catheter # Voids 1 1 # Bowel Movements 1 - Exam Physical Exam: Revealed a 73-year-old female in no distress. Head: Atraumatic, normocephalic. HEENT:[Neck is supple.] [No neck masses.] [No thyromegaly.] [No JVD.] Chest: [Minimal crackles at the bases, no rhonchi and no wheezes..] Cardiac Exam: [Normal S1 and S2, no S3 gallop, no murmur.] Abdomen: [Soft, nontender, no megaly, no rebound, no guarding, normal bowel sounds.] Extremities: [No clubbing, no edema, no cyanosis.] Neurological Exam: [No focal neurologic deficit.] Psychiatric: Normal mood, affect and mental status examination. Skin: No rashes. - Labs CBC & Chem 7: 09/16/18 05:12 09/16/18 10:55 Labs: Abnormal Lab Results - Last 24 Hours (Table) 09/15/18 09/15/18 09/15/18 Range/Units 16:52 18:04 20:18 RBC (3.80-5.40) m/uL Hgb (11.4-16.0) gm/dL Hct (34.0-46.0) % Plt Count (150-450) k/uL Lymphocytes # (1.0-4.8) k/uL Sodium 124 L (137-145) mmol/L Potassium (3.5-5.1) mmol/L Chloride (98-107) mmol/L Carbon Dioxide (22-30) mmol/L BUN (7-17) mg/dL Glucose (74-99) mg/dL POC Glucose (mg/dL) 198 H 321 H (75-99) mg/dL 09/16/18 09/16/18 09/16/18 Range/Units 00:57 05:12 05:12 RBC 3.10 L (3.80-5.40) m/uL Hgb 10.0 L (11.4-16.0) gm/dL Hct 30.2 L (34.0-46.0) % Plt Count 128 L (150-450) k/uL Lymphocytes # 0.7 L (1.0-4.8) k/uL Sodium 127 L 129 L (137-145) mmol/L Potassium 5.4 H (3.5-5.1) mmol/L Chloride 94 L (98-107) mmol/L Carbon Dioxide 33 H (22-30) mmol/L BUN 23 H (7-17) mg/dL Glucose 55 L (74-99) mg/dL POC Glucose (mg/dL) (75-99) mg/dL 09/16/18 09/16/18 09/16/18 Range/Units 06:53 07:07 07:22 RBC (3.80-5.40) m/uL Hgb (11.4-16.0) gm/dL Hct (34.0-46.0) % Plt Count (150-450) k/uL Lymphocytes # (1.0-4.8) k/uL Sodium (137-145) mmol/L Potassium (3.5-5.1) mmol/L Chloride (98-107) mmol/L Carbon Dioxide (22-30) mmol/L BUN (7-17) mg/dL Glucose (74-99) mg/dL POC Glucose (mg/dL) 60 L 68 L 72 L (75-99) mg/dL 09/16/18 09/16/18 Range/Units 10:55 11:27 RBC (3.80-5.40) m/uL Hgb (11.4-16.0) gm/dL Hct (34.0-46.0) % Plt Count (150-450) k/uL Lymphocytes # (1.0-4.8) k/uL Sodium 127 L (137-145) mmol/L Potassium (3.5-5.1) mmol/L Chloride (98-107) mmol/L Carbon Dioxide (22-30) mmol/L BUN (7-17) mg/dL Glucose (74-99) mg/dL POC Glucose (mg/dL) 242 H (75-99) mg/dL Microbiology - Last 24 Hours (Table) 09/12/18 14:50 Blood Culture - Preliminary Blood No Growth after 72 hours Assessment and Plan Assessment: #1 Hyponatremia suspect hypervolemic hyponatremia. #2 Acute exacerbation of diastolic congestive heart failure with small to moderate left-sided pleural effusion. #3 Atrial fibrillation, anticoagulated with Eliquis. #4 Diabetes mellitus. #5 Diabetic neuropathy. #6 Lower extremity wound. #7 History of CVA/TIA. #8 Chronic moderate persistent bronchial asthma. #9 Hypertension. #10 Hypothyroidism. #11 History of sarcoidosis. Recommendation: Continue fluid restrictions, continue Lasix, continue to monitor sodium on a daily basis, we'll likely transfer out of the ICU today since her sodium is up to 127. Given a dose of 40 mg of Lasix for her interstitial edema as noted on the chest x-ray today. Surprisingly the patient is not as symptomatic as he should be considering the pulmonary edema noted on the chest x-ray. Still patient could be considered for transfer out of the ICU to a monitor bed on . Time with Patient: Less than 30
[2018-09-16 15:13] LABS: Potassium 5.7 mmol/L (3.5-5.1)
[2018-09-16] MEDS: CALCIUM CARB-VIT D 500MG-200UN 1 EACH TAB PO SCH ×2 (16:44→17:38)
[2018-09-16] MEDS: VIT A,C & E-LUTEIN-MINERALS 1 EACH TAB PO SCH ×2 (16:44→17:38)
[2018-09-16] MEDS: FOLIC ACID 1 MG TAB PO SCH ×2 (16:44→17:39)
[2018-09-16] MEDS ORDERED: ACETAMINOPHEN IV (For NPO) 1,000 MG in EMPTY BAG 1 BAG IVPB PRN (16:47)
[2018-09-16] MEDS ORDERED: VANCOMYCIN IV PER PHARMACY 1 EACH MISC MISCELLANE PRN (16:56)
[2018-09-16 17:02] LABS: Glucose,Whole Blood 145 mg/dL (75-99)
[2018-09-16] MEDS: SODIUM CHLORIDE TAB 1 GM TAB PO SCH ×3 (17:07→22:28)
[2018-09-16 17:14] LABS: ABG Base Excess 7.6 mmol/L; ABG HCO3 31 mmol/L (21-25); ABG Oxygen Saturation 94.7 % (94-97); ABG PCO2 43 mmHg (35-45); ABG PH 7.47 (7.35-7.45); ABG PO2 68 mmHg (83-108); ABG TCO2 33 mmol/L (19-24)
[2018-09-16] MEDS ORDERED: VANCOMYCIN 1,250 MG in SODIUM CHLORIDE 0.9% 250 ML IVPB ONE (17:15)
[2018-09-16] MEDS: AZTREONAM 1 GM in SODIUM CHLORIDE 0.9% 50 ML IVPB SCH (17:36)
[2018-09-16 17:50] LABS: Basophils % (A) 0 %; Eosinophils # (A) 0.1 k/uL (0-0.7); Eosinophils % (A) 0 %; HCT 30.8 % (34.0-46.0); Lymphocytes # (A) 0.2 k/uL (1.0-4.8); Lymphocytes % (A) 2 %; MCH 31.6 pg (25.0-35.0); MCHC 32.5 g/dL (31.0-37.0); MCV 97.1 fL (80.0-100.0); Mean Platelet Volume 6.7; Monocytes # (A) 0.5 k/uL (0-1.0); Monocytes % (A) 4 %; Neutrophils # (A) 12.7 k/uL (1.3-7.7); Neutrophils % (A) 93 %; Platelet Count 139 k/uL (150-450); RBC 3.17 m/uL (3.80-5.40); RDW 13.8 % (11.5-15.5); WBC 13.7 k/uL (3.8-10.6)
[2018-09-16 18:10] LABS: Anion Gap 9 mmol/L; Blood Urea Nitrogen 26 mg/dL (7-17); Calcium 8.7 mg/dL (8.4-10.2); Carbon Dioxide 29 mmol/L (22-30); Chloride 89 mmol/L (98-107); Glucose 120 mg/dL (74-99); Potassium 5.2 mmol/L (3.5-5.1); Sodium 127 mmol/L (137-145)
[2018-09-16] MEDS: INSULIN DETEMIR 100 UNIT/ML 10 ML VIAL SQ SCH (20:03)
--- NOTE | 2018-09-16 20:25 | P.PN ---
Subjective Progress Note Date: 09/16/18 Progress note being dictated for Interval history: This is a 73-year-old female admitted with severe hyponatremia , possible SIADH, possible CHF exacerbation and multiple other medical issues. Maintained on gentle IV fluid hydration , sodium increased to 120.Evaluated by a nephrology, IV fluids discontinued, Lasix and fluid restriction initiated. Magnesium currently being replaced. Afebrile. Evaluated by both cardiology and pulmonary with recommendations noted. 09/14/18 sodium and decreased to 117 last night patient transferred to ICU for 3 % sodium IV infusion. Sodium currently 123. Diet Intake fair. Telemetry sinus bradycardy, heart rate 50s. 3% saline discontinued, maintained on 1200 ml fluid restrictions. Urine osmolality 299. Chest x-ray reporting left lower lobe infiltrate, small stable bilateral effusions, possible mild central venous congestion, right upper lobe granuloma. 09/15/18 developed hematuria after Smith catheter insertion. Urology consulted with recommendations pending. Fluid restrictions maintained. Sodium 124,3% IV saline resumed last night. Received a dose of IV Lasix earlier today. Requires encouragement with Diet intake. Chest x-ray stable. 09/16/2018 appears more short of breath today, chest x-ray reporting interstitial venous congestion, interstitial pneumonitis with bilateral pleural effusions and basilar infiltrate, changes of chronic granulomatous disease. C. difficile toxin Lasix IV push. Last night sodium dropped again, and 3% saline resumed. Currently sodium 127. Hematuria persists, and by urology with recommendations noted. Review of systems: CONSTITUTIONAL: Positive fatigue. HEENT: No recent visual problems or hearing problems. Denied any sore throat. CARDIOVASCULAR: No chest pain, no palpitations, no syncope. PULMONARY:shortness of breath, no cough, no hemoptysis. GASTROINTESTINAL: No diarrhea, no nausea, no vomiting, no abdominal pain. Normoactive bowel sounds. NEUROLOGICAL: No headaches, weakness, no numbness. GENITOURINARY: Denies any burning micturition, frequency, or urgency. Positive hematuria ENDOCRINE: Denies any polyuria or polydipsia. PSYCHIATRIC: No anxiety, no depression The rest of the 14 point review of systems is negative Active Medications Generic Name Dose Route Start Last Admin Trade Name Freq PRN Reason Stop Dose Admin Acetaminophen 650 mg 09/12/18 16:26 09/14/18 10:35 Tylenol Tab PO 650 mg Q6HR PRN Administration Mild Pain or Fever > 100.5 Albuterol/Ipratropium 3 ml 09/12/18 17:49 09/15/18 11:22 Duoneb 0.5 Mg-3 Mg/3 Ml Soln INHALATION 3 ml RT-QID PRN Administration Shortness Of Breath Or Wheezing Amiodarone HCl 200 mg 09/13/18 09:00 09/16/18 08:14 Cordarone PO 200 mg DAILY [facility] Administration Amlodipine Besylate 5 mg 09/14/18 09:00 09/16/18 08:13 Norvasc PO 5 mg DAILY [facility] Administration Atorvastatin Calcium 10 mg 09/12/18 21:00 09/15/18 20:25 Lipitor PO 10 mg HS@2100 [facility]ENDING [facility] TO [facility] Administration Bisacodyl 10 mg 09/12/18 17:49 Dulcolax RECTAL DAILY PRN Constipation Budesonide/Formoterol Fumarate 2 puff 09/12/18 20:00 09/16/18 19:10 Symbicort 160-4.5 Mcg Inhaler INHALATION 2 puff RT-BID PENDING S[facility] TO [facility] Administration Calcium Carbonate 1 each 09/13/18 17:00 09/16/18 17:38 Oscal 500+D PO Not Given DAILY@1700 PENDING S[facility] TO [facility] Carbidopa/Levodopa 1 each 09/12/18 22:00 09/16/18 17:38 Sinemet 25-100 PO Not Given TID PENDING SALE TO [facility] Docusate Sodium 100 mg 09/12/18 17:49 Colace PO BID PRN Constipation Ergocalciferol 50,000 unit 09/18/18 12:00 Vitamin D2 PO ROSA PENDING SALE TO [facility] Ferrous Sulfate 325 mg 09/13/18 12:00 09/16/18 12:47 Feosol PO 325 mg 1200 PENDING SALE TO [facility] Administration Folic Acid 1 mg 09/13/18 17:00 09/16/18 17:39 Folic Acid PO Not Given DAILY@1700 PENDING S[facility] TO [facility] Furosemide 40 mg 09/16/18 21:00 Lasix IV 09/16/18 21:01 ONCE ONE Guaifenesin/Codeine Phosphate 10 ml 09/14/18 12:17 09/16/18 02:34 Robitussin Ac PO 10 ml Q6H PRN Administration Cough Hydralazine HCl 10 mg 09/14/18 06:32 Apresoline IVP Q6HR PRN Blood Pressure - High Acetaminophen 1,000 mg/ IV 100 mls @ 400 mls/hr 09/16/18 16:47 09/16/18 16:52 Solution IVPB 09/17/18 12:14 400 mls/hr Q6HR PRN Administration Fever Aztreonam 1 gm/ Sodium 50 mls @ 100 mls/hr 09/16/18 17:00 09/16/18 17:36 Chloride IVPB 100 mls/hr Q8HR [facility] Administration Protocol Vancomycin HCl 1,000 mg/ 250 mls @ 125 mls/hr 09/17/18 06:00 Sodium Chloride IVPB Q12H [facility] Insulin Aspart 0 unit 09/14/18 03:00 09/16/18 17:07 Novolog SQ Not Given [id number] [facility]END[facility] S[facility] Protocol Insulin Detemir 7 unit 09/12/18 21:00 09/16/18 20:03 Levemir SQ Not Given HS [facility] Lactic Acid 1 applic 09/13/18 09:00 09/16/18 08:14 Lac-Hydrin 12% TOPICAL 1 applic DAILY [facility] Administration Levothyroxine Sodium 137 mcg 09/13/18 06:30 09/16/18 06:25 Synthroid PO 137 mcg DAILY@0630 [facility] Administration Loratadine 10 mg 09/12/18 21:00 09/15/18 20:39 Claritin PO 10 mg HS [facility] Administration Magnesium Hydroxide 1,200 mg 09/12/18 17:49 Milk Of Magnesia PO DAILY PRN Constipation Melatonin 3 mg 09/12/18 17:49 09/15/18 20:34 Melatonin PO 3 mg HS PRN Administration Insomnia Metoprolol Tartrate 25 mg 09/14/18 09:00 09/16/18 08:13 Lopressor PO 25 mg BID [facility] Administration Miscellaneous Information 1 each 09/16/18 06:44 Magnesium Per Protocol MISCELLANE DAILY PRN Per Protocol Protocol Multivitamins 1 each 09/13/18 12:00 09/16/18 12:47 Theragran PO 1 each 1200 [facility] Administration Multivitamins/Minerals 1 each 09/13/18 12:00 09/16/18 17:38 Ivite PO Not Given 1200 [facility] Naloxone HCl 0.2 mg 09/12/18 16:26 Narcan IV Q2M PRN Opioid Reversal Patient's Own ( 20 mcg 09/13/18 08:00 09/16/18 08:14 Teriparatide [Forteo SQ Not Given ] 20 Mcg) DAILY@0800 PENDING S[facility] TO [facility] Ondansetron HCl 4 mg 09/14/18 05:20 09/14/18 05:38 Zofran IVP 4 mg Q6HR PRN Administration Nausea And Vomiting Oxybutynin Chloride 10 mg 09/12/18 21:00 09/15/18 20:26 Ditropan Xl PO 10 mg HS@2100 PENDING S[facility] TO [facility] Administration Oxycodone/Acetaminophen 0.5 each 09/12/18 17:49 Percocet 5-325 PO TID PRN Pain Pantoprazole Sodium 40 mg 09/13/18 06:00 09/16/18 06:25 Protonix PO 40 mg DAILY@0600 PENDING S[facility] Administration Primidone 50 mg 09/13/18 09:00 09/16/18 08:13 Mysoline PO 50 mg DAILY [facility]ENDING S[facility] Administration Sodium Chloride 1 gm 09/16/18 10:45 09/16/18 17:39 Sodium Chloride Tab PO Not Given BID PENDING SALE TO [facility] Tetrahydrozoline HCl 1 drops 09/13/18 14:26 09/15/18 20:26 Visine Eye Drops BOTH EYES 1 drops TID PRN Administration Eye Irritation Thiamine HCl 100 mg 09/13/18 12:00 09/16/18 12:47 Vitamin B-1 PO 100 mg 1200 PENDING SALE TO [facility] Administration Objective - Vital Signs Vital signs: Vital Signs Temp 101.3 F H 09/16/18 19:00 Pulse 62 09/16/18 19:00 Resp 21 09/16/18 19:00 BP 97/52 09/16/18 19:00 Pulse Ox 98 09/16/18 19:00 Intake & Output 09/16/18 09/16/18 09/17/18 06:59 18:59 06:59 Intake Total 725 520 200 Output Total 635 1240 25 Balance 90 -720 175 Weight 64.3 kg 64.3 kg Intake: IV 175 0 Sodium Chloride 3%( 175 0 Hypertonic) 500 ml @ 25 mls/hr IV .Q20H [facility] Rx#: [id number] Intake, IV Titration 20 400 Amount Aztreonam 1 gm In Sodium 50 Chloride 0.9% 50 ml @ 100 mls/hr IVPB Q8HR [facility] Rx# :[id number] Magnesium Sulfate-D5w Pmx 100 1 gm In Dextrose/Water 1 100ml.bag @ 100 mls/hr IVPB Q1H [facility] Rx#: [id number] Sodium Chloride 3%( 20 Hypertonic) 500 ml @ 25 mls/hr IV .Q20H [facility] Rx#: [id number] Vancomycin 1,000 mg In 250 Sodium Chloride 0.9% 250 ml @ 125 mls/hr IVPB Q12H [facility] Rx#:[id number] Oral 530 120 200 Output: Urine 635 1240 25 Other: Voiding Method Indwelling Catheter Indwelling Catheter # Voids 1 - Exam PHYSICAL EXAM: VITAL SIGNS: As above GENERAL: Alert and oriented 2, no acute distress, tired appearing HEENT: Conjunctivae normal. eyes normal. Oral conjunctiva moist NECK: No JVD. No thyroid enlargement. No LNs CARDIOVASCULAR: S1, S2 muffled. Irregular, No murmur RESPIRATION: Respiratory effort increased Breath sounds diminished in the bases. Fine bibasilar crackles. ABDOMEN: Soft, nontender . No guarding. no masses palpable. Bowel sounds heard. LEGS: No edema. no swelling NERVOUS SYSTEM: Cranial N 2-12 grossly normal. Moves all 4 limbs. Diffuse weakness. No focal deficits. Skin: no ulcer no rash - Labs CBC & Chem 7: 09/16/18 17:02 09/16/18 17:05 Labs: Abnormal Lab Results - Last 24 Hours (Table) 09/15/18 09/16/18 09/16/18 Range/Units 20:18 00:57 05:12 WBC (3.8-10.6) k/uL RBC (3.80-5.40) m/uL Hgb (11.4-16.0) gm/dL Hct (34.0-46.0) % Plt Count (150-450) k/uL Neutrophils # (1.3-7.7) k/uL Lymphocytes # (1.0-4.8) k/uL ABG pH (7.35-7.45) ABG pO2 (83-108) mmHg ABG HCO3 (21-25) mmol/L ABG Total CO2 (19-24) mmol/L Sodium 127 L 129 L (137-145) mmol/L Potassium 5.4 H (3.5-5.1) mmol/L Chloride 94 L (98-107) mmol/L Carbon Dioxide 33 H (22-30) mmol/L BUN 23 H (7-17) mg/dL Glucose 55 L (74-99) mg/dL POC Glucose (mg/dL) 321 H (75-99) mg/dL 09/16/18 09/16/18 09/16/18 Range/Units 05:12 06:53 07:07 WBC (3.8-10.6) k/uL RBC 3.10 L (3.80-5.40) m/uL Hgb 10.0 L (11.4-16.0) gm/dL Hct 30.2 L (34.0-46.0) % Plt Count 128 L (150-450) k/uL Neutrophils # (1.3-7.7) k/uL Lymphocytes # 0.7 L (1.0-4.8) k/uL ABG pH (7.35-7.45) ABG pO2 (83-108) mmHg ABG HCO3 (21-25) mmol/L ABG Total CO2 (19-24) mmol/L Sodium (137-145) mmol/L Potassium (3.5-5.1) mmol/L Chloride (98-107) mmol/L Carbon Dioxide (22-30) mmol/L BUN (7-17) mg/dL Glucose (74-99) mg/dL POC Glucose (mg/dL) 60 L 68 L (75-99) mg/dL 09/16/18 09/16/18 09/16/18 Range/Units 07:22 10:55 11:27 WBC (3.8-10.6) k/uL RBC (3.80-5.40) m/uL Hgb (11.4-16.0) gm/dL Hct (34.0-46.0) % Plt Count (150-450) k/uL Neutrophils # (1.3-7.7) k/uL Lymphocytes # (1.0-4.8) k/uL ABG pH (7.35-7.45) ABG pO2 (83-108) mmHg ABG HCO3 (21-25) mmol/L ABG Total CO2 (19-24) mmol/L Sodium 127 L (137-145) mmol/L Potassium (3.5-5.1) mmol/L Chloride (98-107) mmol/L Carbon Dioxide (22-30) mmol/L BUN (7-17) mg/dL Glucose (74-99) mg/dL POC Glucose (mg/dL) 72 L 242 H (75-99) mg/dL 09/16/18 09/16/18 09/16/18 Range/Units 14:50 16:47 17:02 WBC 13.7 H (3.8-10.6) k/uL RBC 3.17 L (3.80-5.40) m/uL Hgb 10.0 L (11.4-16.0) gm/dL Hct 30.8 L (34.0-46.0) % Plt Count 139 L (150-450) k/uL Neutrophils # 12.7 H (1.3-7.7) k/uL Lymphocytes # 0.2 L (1.0-4.8) k/uL ABG pH (7.35-7.45) ABG pO2 (83-108) mmHg ABG HCO3 (21-25) mmol/L ABG Total CO2 (19-24) mmol/L Sodium 123 L (137-145) mmol/L Potassium 5.7 H (3.5-5.1) mmol/L Chloride (98-107) mmol/L Carbon Dioxide (22-30) mmol/L BUN (7-17) mg/dL Glucose (74-99) mg/dL POC Glucose (mg/dL) 145 H (75-99) mg/dL 09/16/18 09/16/18 Range/Units 17:05 17:12 WBC (3.8-10.6) k/uL RBC (3.80-5.40) m/uL Hgb (11.4-16.0) gm/dL Hct (34.0-46.0) % Plt Count (150-450) k/uL Neutrophils # (1.3-7.7) k/uL Lymphocytes # (1.0-4.8) k/uL ABG pH 7.47 H (7.35-7.45) ABG pO2 68 L (83-108) mmHg ABG HCO3 31 H (21-25) mmol/L ABG Total CO2 33 H (19-24) mmol/L Sodium 127 L (137-145) mmol/L Potassium 5.2 H (3.5-5.1) mmol/L Chloride 89 L (98-107) mmol/L Carbon Dioxide (22-30) mmol/L BUN 26 H (7-17) mg/dL Glucose 120 H (74-99) mg/dL POC Glucose (mg/dL) (75-99) mg/dL Microbiology - Last 24 Hours (Table) 09/12/18 14:50 Blood Culture - Preliminary Blood No Growth after 96 hours Assessment and Plan Assessment: -Severe Hyponatremia, secondary to poor oral intake. Urine osmolality 299 -Acute on chronic CHF exacerbation, diastolic dysfunction with left-sided pleural effusion -Atrial fibrillation, chronic -Hypomagnesemia -Diabetes mellitus type 2, on insulin pump -Gastroesophageal reflux disease -Right lower extremity chronic ulcer -Mild to moderate protein calorie malnutrition -Anxiety -Hematuria, post Smith catheter insertion. Renal ultrasound pending Plan: Continue on current medication regime ,salt tablets,monitoring and symptomatic treatment. Fluid restrictions, diuretics as per nephrology. Currently off 3% saline. Maintain nebulized bronchodilators. Close monitoring of electrolytes with repeat labs ordered for am. Oral intake poor, needs much encouragement. Subacute rehab at discharge discussed with significant other. The impression and plan of care has been dictated as directed. : I performed a history and examination of this patient, discussed the same with the dictator. I agree with the dictator's note ,documented as a scribe. Any additional findings or plans will be noted.
[2018-09-16 20:54] LABS: Glucose,Whole Blood 183 mg/dL (75-99)
[2018-09-16] MEDS ORDERED: FUROSEMIDE 10 MG/ML 4 ML VIAL IV ONE (21:00)
[2018-09-16] MEDS ORDERED: SODIUM CHLORIDE 0.9% 250 ML IV ONE (21:04)
[2018-09-16] MEDS: LORATADINE 10 MG TAB PO SCH (21:07)
[2018-09-16] MEDS: ATORVASTATIN 10 MG TAB PO SCH (21:07)
[2018-09-16] MEDS ORDERED: FUROSEMIDE 10 MG/ML 2 ML VIAL IV STA (21:36)
[2018-09-16] MEDS: OXYBUTYNIN 10 MG TAB.ER.24 PO SCH (21:39)
--- NOTE | 2018-09-16 23:33 | P.CONS ---
History of Present Illness - Reason for Consult Consult date: 09/16/18 - Chief Complaint fever - History of Present Illness 73-year-old female with multiple medical illnesses including chronic persistent asthma, oxygen dependent lung disease, Parkinson's, multiple strokes and recurrent hyponatremia presents to Hospital from the extended care facility with increasing weakness and altered mental status. Is not evidence of significant hyponatremia that has been seen by nephrology and has been treated with some hypertonic saline to improve her hyponatremia. The patient is now developed a fever and had worsening mental status and was transferred to the intensive care unit. With a fever the infectious diseases consultation was requested. The patient's is present. Agrees that the wound to the right leg is definitely doing better. She however is developed significant hematuria after Smith catheter was placed. She's been seen by urology without need for surgical intervention at this time. Request for antibiotic therapy. 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 Past Anesthesia/Blood Transfusion Reactions: No Reported Reaction Additional Past Anesthesia/Blood Transfusion Reaction / Comm: CLAUSTERPHOBIA Past Psychological History: Anxiety Smoking Status: Never smoker Past Alcohol Use History: None Reported Additional Past Alcohol Use History / Comment(s): Patient is a lifelong nonsmoker. She denies any medical marijuana, marijuana, street drug or alcohol use at this time. Patient does have a history of heavy alcohol use and quit 12 years ago. She is currently on Social Security. She is currently at [facility] for rehab r/t falls/weakness, but otherwise lives at home with her . There are no pets in the home. And she has had no recent travel. Past Drug Use History: None Reported - Past Family History Father Family Medical History: Cancer, Prostate Disorder Additional Family Medical History / Comment(s): PROSTATE CA, HERNIA SX BACK SX Mother Family Medical History: Cancer Additional Family Medical History / Comment(s): Mother is . Mother had lung cancer. She was a smoker. Medications and Allergies Home Medications and Allergies Comment(s): Current Medications Acetaminophen (Tylenol Tab) 650 mg PO Q6HR PRN PRN Reason: Mild Pain or Fever > 100.5 Last Admin: 09/14/18 10:35 Dose: 650 mg Albuterol/Ipratropium (Duoneb 0.5 Mg-3 Mg/3 Ml Soln) 3 ml INHALATION RT-QID PRN PRN Reason: Shortness Of Breath Or Wheezing Last Admin: 09/15/18 11:22 Dose: 3 ml Amiodarone HCl (Cordarone) 200 mg PO DAILY [facility] Last Admin: 09/16/18 08:14 Dose: 200 mg Amlodipine Besylate (Norvasc) 5 mg PO DAILY [facility] Last Admin: 09/16/18 08:13 Dose: 5 mg Atorvastatin Calcium (Lipitor) 10 mg PO HS@2100 [facility] Last Admin: 09/16/18 21:07 Dose: Not Given Bisacodyl (Dulcolax) 10 mg RECTAL DAILY PRN PRN Reason: Constipation Budesonide/Formoterol Fumarate (Symbicort 160-4.5 Mcg Inhaler) 2 puff INHALATION RT-BID [facility] Last Admin: 09/16/18 19:10 Dose: 2 puff Calcium Carbonate (Oscal 500+D) 1 each PO DAILY@1700 [facility] Last Admin: 09/16/18 17:38 Dose: Not Given Carbidopa/Levodopa (Sinemet 25-100) 1 each PO TID [facility] Last Admin: 09/16/18 21:39 Dose: Not Given Docusate Sodium (Colace) 100 mg PO BID PRN PRN Reason: Constipation Ergocalciferol (Vitamin D2) 50,000 unit PO ROSA [facility] Ferrous Sulfate (Feosol) 325 mg PO 1200 [facility] Last Admin: 09/16/18 12:47 Dose: 325 mg Folic Acid (Folic Acid) 1 mg PO DAILY@1700 [facility] Last Admin: 09/16/18 17:39 Dose: Not Given Guaifenesin/Codeine Phosphate (Robitussin Ac) 10 ml PO Q6H PRN PRN Reason: Cough Last Admin: 09/16/18 02:34 Dose: 10 ml Hydralazine HCl (Apresoline) 10 mg IVP Q6HR PRN PRN Reason: Blood Pressure - High Acetaminophen 1,000 mg/ IV (Solution) 100 mls @ 400 mls/hr IVPB Q6HR PRN PRN Reason: Fever Stop: 09/17/18 12:14 Last Admin: 09/16/18 16:52 Dose: 400 mls/hr Aztreonam 1 gm/ Sodium (Chloride) 50 mls @ 100 mls/hr IVPB Q8HR [facility]; Protocol Last Admin: 09/16/18 17:36 Dose: 100 mls/hr Vancomycin HCl 1,000 mg/ (Sodium Chloride) 250 mls @ 125 mls/hr IVPB Q12H [facility] Insulin Aspart (Novolog) 0 unit SQ [id number] [facility]; Protocol Last Admin: 09/16/18 22:30 Dose: 2 unit Insulin Detemir (Levemir) 7 unit SQ [facility] Last Admin: 09/16/18 20:03 Dose: Not Given Lactic Acid (Lac-Hydrin 12%) 1 applic TOPICAL DAILY [facility] Last Admin: 09/16/18 08:14 Dose: 1 applic Levothyroxine Sodium (Synthroid) 137 mcg PO DAILY@0630 [facility] Last Admin: 09/16/18 06:25 Dose: 137 mcg Loratadine (Claritin) 10 mg PO HS [facility] Last Admin: 09/16/18 21:07 Dose: Not Given Magnesium Hydroxide (Milk Of Magnesia) 1,200 mg PO DAILY PRN PRN Reason: Constipation Melatonin (Melatonin) 3 mg PO HS PRN PRN Reason: Insomnia Last Admin: 09/15/18 20:34 Dose: 3 mg Metoprolol Tartrate (Lopressor) 25 mg PO BID [facility] Last Admin: 09/16/18 20:28 Dose: Not Given Miscellaneous Information (Magnesium Per Protocol) 1 each MISCELLANE DAILY PRN ; Protocol PRN Reason: Per Protocol Multivitamins (Theragran) 1 each PO 1200 [facility] Last Admin: 09/16/18 12:47 Dose: 1 each Multivitamins/Minerals (Ivite) 1 each PO 1200 [facility] Last Admin: 09/16/18 17:38 Dose: Not Given Naloxone HCl (Narcan) 0.2 mg IV Q2M PRN PRN Reason: Opioid Reversal Patient's Own ( Teriparatide [Forteo ] 20 Mcg) 20 mcg SQ DAILY@0800 [facility] Last Admin: 09/16/18 08:14 Dose: Not Given Ondansetron HCl (Zofran) 4 mg IVP Q6HR PRN PRN Reason: Nausea And Vomiting Last Admin: 09/14/18 05:38 Dose: 4 mg Oxybutynin Chloride (Ditropan Xl) 10 mg PO HS@2100 [facility] Last Admin: 09/16/18 21:39 Dose: Not Given Oxycodone/Acetaminophen (Percocet 5-325) 0.5 each PO TID PRN PRN Reason: Pain Pantoprazole Sodium (Protonix) 40 mg PO DAILY@0600 [facility] Last Admin: 09/16/18 06:25 Dose: 40 mg Primidone (Mysoline) 50 mg PO DAILY [facility] Last Admin: 09/16/18 08:13 Dose: 50 mg Sodium Chloride (Sodium Chloride Tab) 1 gm PO BID [facility] Last Admin: 09/16/18 22:28 Dose: Not Given Tetrahydrozoline HCl (Visine Eye Drops) 1 drops BOTH EYES TID PRN PRN Reason: Eye Irritation Last Admin: 09/15/18 20:26 Dose: 1 drops Thiamine HCl (Vitamin B-1) 100 mg PO 1200 [facility] Last Admin: 09/16/18 12:47 Dose: 100 mg Home Medications Medication Instructions Recorded Confirmed Type Metoprolol Tartrate [Lopressor] 50 mg PO BID 08/18/15 09/12/18 History Carbidopa-Levodopa 25-100 mg 1 tab PO TID 01/15/16 09/12/18 History [Sinemet 25-100 mg] Levothyroxine Sodium 137 mcg PO DAILY 04/28/18 09/12/18 History Multivitamins, Thera [Multivitamin 1 tab PO DAILY 04/28/18 09/12/18 History (formulary)] Amiodarone HCl [Pacerone] 200 mg PO DAILY 08/09/18 09/12/18 History Ammonium Lactate Lotion 1 applic TOPICAL DAILY 08/09/18 09/12/18 History [Lac-Hydrin 12% Lotion] Atorvastatin Calcium [Lipitor] 10 mg PO HS@2100 08/09/18 09/12/18 History Calcium Carb/Vitamin D3/Vit K1 1 tab PO DAILY@1700 08/09/18 09/12/18 History [Citracal Soft Chew] Docusate [Colace] 100 mg PO BID PRN 08/09/18 09/12/18 History Ergocalciferol [Vitamin D2 50,000 unit PO ROSA 08/09/18 09/12/18 History (DRISDOL)] Ferrous Sulfate [Iron] 325 mg PO DAILY 08/09/18 09/12/18 History Fluticasone/Salmeterol [Advair 1 inhalation PO RT-BID 08/09/18 09/12/18 History 500-50 Diskus] Insulin Detemir [Levemir] 7 unit SQ HS 08/09/18 09/12/18 History Lansoprazole 30 mg PO DAILY@0600 08/09/18 09/12/18 History Levocetirizine Dihydrochloride 5 mg PO HS 08/09/18 09/12/18 History [Xyzal] Melatonin 3 mg PO HS PRN 08/09/18 09/12/18 History Primidone [Mysoline] 50 mg PO DAILY 08/09/18 09/12/18 History Quinapril HCl [Accupril] 20 mg PO DAILY 08/09/18 09/12/18 History Teriparatide [Forteo] 20 mcg SQ DAILY 08/09/18 09/12/18 History Thiamine HCl [Vitamin B-1] 100 mg PO DAILY 08/09/18 09/12/18 History Tolterodine Tartrate [Detrol LA] 4 mg PO HS@2100 08/09/18 09/12/18 History Venlafaxine HCl ER [Effexor XR] 75 mg PO DAILY 08/09/18 09/12/18 History Vit C/E/Zn/Coppr/Lutein/Zeaxan 1 tab PO DAILY 08/09/18 09/12/18 History [Preservision Areds 2 Softgel] Acetaminophen Tab [Tylenol] 650 mg PO Q8H PRN tab 08/16/18 09/12/18 Rx Apixaban [Eliquis] 5 mg PO BID tab 08/16/18 09/12/18 Rx Ipratropium-Albuterol Nebulize 3 ml INHALATION RT-QID PRN 08/16/18 09/12/18 Rx [Duoneb 0.5 mg-3 mg/3 ml Soln] ampul.neb oxyCODONE-APAP 5-325MG [Percocet 0.5 tab PO TID PRN #5 tab 08/16/18 09/12/18 Rx 5-325 mg] Codeine Phosphate/Guaifenesin 10 ml PO QID 08/24/18 09/12/18 History [Guaifen-Codeine 100-10 mg/5 ml] Bisacodyl [Dulcolax] 10 mg RECTAL DAILY PRN 09/12/18 09/12/18 History Folic Acid 1 mg PO DAILY@1700 09/12/18 09/12/18 History INSULIN LISPRO (HumaLOG) [humaLOG] 0 unit SQ ACHS 09/12/18 09/12/18 History Magnesium Hydroxide [Milk of 1,200 mg PO DIRECTED PRN 09/12/18 09/12/18 History Magnesia] Mineral Oil [Fleet Mineral Oil] 133 ml RECTAL DIRECTED PRN 09/12/18 09/12/18 History Teriparatide [Forteo] 20 mcg SQ DAILY@0800 09/12/18 09/12/18 History Allergies Allergy/AdvReac Type Severity Reaction Status Date / Time cefdinir Allergy Severe Swelling Verified 09/12/18 16:45 Cephalosporins Allergy Unknown Verified 09/12/18 16:45 doxycycline Allergy Nausea & Verified 09/12/18 16:45 Vomiting erythromycin base Allergy Nausea & Verified 09/12/18 16:45 Vomiting & Diarrhea/RASH Penicillins Allergy Rash/Hives Verified 09/12/18 16:45 azithromycin AdvReac Nausea & Verified 09/12/18 16:45 Vomiting hydrochlorothiazide AdvReac Nausea & Verified 09/12/18 16:45 [From Dyazide] Vomiting levofloxacin [From Levaquin] AdvReac Abdominal Verified 09/12/18 16:45 Pain moxifloxacin HCl AdvReac Unknown Verified 09/12/18 16:45 [From Avelox] sulfamethoxazole AdvReac Nausea & Verified 09/12/18 16:45 [From Bactrim] Vomiting & Diarrhea triamterene [From Dyazide] AdvReac Nausea & Verified 09/12/18 16:45 Vomiting trimethoprim [From Bactrim] AdvReac Unknown Verified 09/12/18 16:45 Physical Exam Vitals: Vital Signs Temp Pulse Resp BP Pulse Ox 09/16/18 21:00 61 19 102/46 94 L 09/16/18 20:00 99.6 F 59 L 16 102/42 100 09/16/18 19:00 101.3 F H 62 21 97/52 98 09/16/18 18:00 68 31 H 161/77 92 L 09/16/18 17:00 103.1 F H 67 32 H 120/63 78 L 09/16/18 16:00 70 27 H 102/61 86 L 09/16/18 15:00 60 28 H 102/61 93 L 09/16/18 14:00 56 L 25 H 156/63 93 L 09/16/18 13:00 57 L 20 146/56 95 09/16/18 12:00 99.9 F H 54 L 22 152/74 87 L 09/16/18 11:00 55 L 21 132/43 96 09/16/18 10:00 49 L 20 132/49 95 09/16/18 09:00 47 L 23 159/63 94 L 09/16/18 08:00 98.9 F 55 L 23 159/56 96 09/16/18 07:00 57 L 14 146/47 97 09/16/18 06:00 55 L 19 138/53 98 09/16/18 05:00 54 L 15 116/68 98 09/16/18 04:00 98.2 F 54 L 16 117/43 96 09/16/18 03:00 50 L 13 131/51 97 09/16/18 02:00 53 L 16 123/53 97 01/04/19 01:00 56 L 19 123/53 97 09/16/18 00:00 99.0 F 56 L 15 132/59 96 09/15/18 23:39 57 L 15 132/59 97 09/15/18 23:00 57 L 15 138/52 98 Intake and Output 09/16/18 09/16/18 09/16/18 06:59 14:59 22:59 Intake Total 655 220 500 Output Total 435 1025 240 Balance 220 -805 260 Intake: IV 175 0 Sodium Chloride 3%( 175 0 Hypertonic) 500 ml @ 25 mls/hr IV .Q20H [facility] Rx#: [id number] Intake, IV Titration 100 300 Amount Aztreonam 1 gm In Sodium 50 Chloride 0.9% 50 ml @ 100 mls/hr IVPB Q8HR [facility] Rx# :[id number] Magnesium Sulfate-D5w Pmx 100 1 gm In Dextrose/Water 1 100ml.bag @ 100 mls/hr IVPB Q1H [facility] Rx#: [id number] Vancomycin 1,000 mg In 250 Sodium Chloride 0.9% 250 ml @ 125 mls/hr IVPB Q12H [facility] Rx#:[id number] Oral 480 120 200 Output: Urine 435 1025 240 Other: Voiding Method Indwelling Catheter Indwelling Catheter Indwelling Catheter # Voids 1 1 Weight 64.3 kg 64.3 kg 73-year-old female confused, opens eyes but does not respond HEENT: Anicteric conjunctiva are pink and moist nasal mucosa grossly intact without significant lesions, there is no thrush. Neck: The neck is supple without significant lymphadenopathy or thyromegaly. Lungs: Good bilateral air entry without significant crackles or wheezing. There is no significant bronchial sounds. There is no egophony or dullness. Heart: Regular rate and rhythm with an audible S1-S2, no S3 no S4. There is no significant murmur click or rub, PMI was nondisplaced. Abdomen: Positive bowel sounds soft and nontender without palpable masses or organomegaly. There was no guarding or rebound. Extremities: The upper extremities have excellent pulses they are symmetric, no significant petechiae or telangiectasia. No splinter hemorrhages were noted. The lower extremities are free from significant edema. The peripheral pulses were 2+ and symmetric. Neuro: Arousable and moves extremities spontaneously Skin evidence of the healing traumatic injury to the right lower extremity. Has a small injury to the right lateral buttocks with some bloody drainage Results CBC & Chem 7: 09/16/18 17:02 09/16/18 17:05 Labs: Abnormal Lab Results - Last 24 Hours (Table) 09/16/18 09/16/18 09/16/18 Range/Units 00:57 05:12 05:12 WBC (3.8-10.6) k/uL RBC 3.10 L (3.80-5.40) m/uL Hgb 10.0 L (11.4-16.0) gm/dL Hct 30.2 L (34.0-46.0) % Plt Count 128 L (150-450) k/uL Neutrophils # (1.3-7.7) k/uL Lymphocytes # 0.7 L (1.0-4.8) k/uL ABG pH (7.35-7.45) ABG pO2 (83-108) mmHg ABG HCO3 (21-25) mmol/L ABG Total CO2 (19-24) mmol/L Sodium 127 L 129 L (137-145) mmol/L Potassium 5.4 H (3.5-5.1) mmol/L Chloride 94 L (98-107) mmol/L Carbon Dioxide 33 H (22-30) mmol/L BUN 23 H (7-17) mg/dL Glucose 55 L (74-99) mg/dL POC Glucose (mg/dL) (75-99) mg/dL 09/16/18 09/16/18 09/16/18 Range/Units 06:53 07:07 07:22 WBC (3.8-10.6) k/uL RBC (3.80-5.40) m/uL Hgb (11.4-16.0) gm/dL Hct (34.0-46.0) % Plt Count (150-450) k/uL Neutrophils # (1.3-7.7) k/uL Lymphocytes # (1.0-4.8) k/uL ABG pH (7.35-7.45) ABG pO2 (83-108) mmHg ABG HCO3 (21-25) mmol/L ABG Total CO2 (19-24) mmol/L Sodium (137-145) mmol/L Potassium (3.5-5.1) mmol/L Chloride (98-107) mmol/L Carbon Dioxide (22-30) mmol/L BUN (7-17) mg/dL Glucose (74-99) mg/dL POC Glucose (mg/dL) 60 L 68 L 72 L (75-99) mg/dL 09/16/18 09/16/18 09/16/18 Range/Units 10:55 11:27 14:50 WBC (3.8-10.6) k/uL RBC (3.80-5.40) m/uL Hgb (11.4-16.0) gm/dL Hct (34.0-46.0) % Plt Count (150-450) k/uL Neutrophils # (1.3-7.7) k/uL Lymphocytes # (1.0-4.8) k/uL ABG pH (7.35-7.45) ABG pO2 (83-108) mmHg ABG HCO3 (21-25) mmol/L ABG Total CO2 (19-24) mmol/L Sodium 127 L 123 L (137-145) mmol/L Potassium 5.7 H (3.5-5.1) mmol/L Chloride (98-107) mmol/L Carbon Dioxide (22-30) mmol/L BUN (7-17) mg/dL Glucose (74-99) mg/dL POC Glucose (mg/dL) 242 H (75-99) mg/dL 09/16/18 09/16/18 09/16/18 Range/Units 16:47 17:02 17:05 WBC 13.7 H (3.8-10.6) k/uL RBC 3.17 L (3.80-5.40) m/uL Hgb 10.0 L (11.4-16.0) gm/dL Hct 30.8 L (34.0-46.0) % Plt Count 139 L (150-450) k/uL Neutrophils # 12.7 H (1.3-7.7) k/uL Lymphocytes # 0.2 L (1.0-4.8) k/uL ABG pH (7.35-7.45) ABG pO2 (83-108) mmHg ABG HCO3 (21-25) mmol/L ABG Total CO2 (19-24) mmol/L Sodium 127 L (137-145) mmol/L Potassium 5.2 H (3.5-5.1) mmol/L Chloride 89 L (98-107) mmol/L Carbon Dioxide (22-30) mmol/L BUN 26 H (7-17) mg/dL Glucose 120 H (74-99) mg/dL POC Glucose (mg/dL) 145 H (75-99) mg/dL 09/16/18 09/16/18 Range/Units 17:12 20:43 WBC (3.8-10.6) k/uL RBC (3.80-5.40) m/uL Hgb (11.4-16.0) gm/dL Hct (34.0-46.0) % Plt Count (150-450) k/uL Neutrophils # (1.3-7.7) k/uL Lymphocytes # (1.0-4.8) k/uL ABG pH 7.47 H (7.35-7.45) ABG pO2 68 L (83-108) mmHg ABG HCO3 31 H (21-25) mmol/L ABG Total CO2 33 H (19-24) mmol/L Sodium (137-145) mmol/L Potassium (3.5-5.1) mmol/L Chloride (98-107) mmol/L Carbon Dioxide (22-30) mmol/L BUN (7-17) mg/dL Glucose (74-99) mg/dL POC Glucose (mg/dL) 183 H (75-99) mg/dL Microbiology - Last 24 Hours (Table) 09/12/18 14:50 Blood Culture - Preliminary Blood No Growth after 96 hours Laboratory Results WBC 13.7 k/uL (3.8-10.6) H 09/16/18 17:02 RBC 3.17 m/uL (3.80-5.40) L 09/16/18 17:02 Hgb 10.0 gm/dL (11.4-16.0) L 09/16/18 17:02 Hct 30.8 % (34.0-46.0) L 09/16/18 17:02 MCV 97.1 fL (80.0-100.0) 09/16/18 17:02 MCH 31.6 pg (25.0-35.0) 09/16/18 17:02 MCHC 32.5 g/dL (31.0-37.0) 09/16/18 17:02 RDW 13.8 % (11.5-15.5) 09/16/18 17:02 Plt Count 139 k/uL (150-450) L 09/16/18 17:02 Neutrophils % 93 % 09/16/18 17:02 Lymphocytes % 2 % 09/16/18 17:02 Monocytes % 4 % 09/16/18 17:02 Eosinophils % 0 % 09/16/18 17:02 Basophils % 0 % 09/16/18 17:02 Neutrophils # 12.7 k/uL (1.3-7.7) H 09/16/18 17:02 Lymphocytes # 0.2 k/uL (1.0-4.8) L 09/16/18 17:02 Monocytes # 0.5 k/uL (0-1.0) 09/16/18 17:02 Eosinophils # 0.1 k/uL (0-0.7) 09/16/18 17:02 Basophils # 0.0 k/uL (0-0.2) 09/16/18 17:02 PT 13.1 sec (9.0-12.0) H 09/12/18 14:50 INR 1.3 (<1.2) H 09/12/18 14:50 APTT 32.3 sec (22.0-30.0) H 09/14/18 00:12 Sample Site RRAD 09/16/18 17:12 ABG pH 7.47 (7.35-7.45) H 09/16/18 17:12 ABG pCO2 43 mmHg (35-45) 09/16/18 17:12 ABG pO2 68 mmHg (83-108) L 09/16/18 17:12 ABG HCO3 31 mmol/L (21-25) H 09/16/18 17:12 ABG Total CO2 33 mmol/L (19-24) H 09/16/18 17:12 ABG O2 Saturation 94.7 % (94-97) 09/16/18 17:12 ABG Base Excess 7.6 mmol/L 09/16/18 17:12 Yannick Test Yes 09/16/18 17:12 FiO2 36 % 09/16/18 17:12 Sodium 127 mmol/L (137-145) L 09/16/18 17:05 Potassium 5.2 mmol/L (3.5-5.1) H 09/16/18 17:05 Chloride 89 mmol/L (98-107) L 09/16/18 17:05 Carbon Dioxide 29 mmol/L (22-30) 09/16/18 17:05 Anion Gap 9 mmol/L 09/16/18 17:05 BUN 26 mg/dL (7-17) H 09/16/18 17:05 Creatinine 0.65 mg/dL (0.52-1.04) 09/16/18 17:05 Est GFR (CKD-EPI)AfAm >90 (>60 ml/min/1.73 sqM) 09/16/18 17:05 Est GFR (CKD-EPI)NonAf 87 (>60 ml/min/1.73 sqM) 09/16/18 17:05 Glucose 120 mg/dL (74-99) H 09/16/18 17:05 POC Glucose (mg/dL) 183 mg/dL (75-99) H 09/16/18 20:43 POC Glu [employer] ID Reynaldo Billingsley 09/16/18 20:[address] Glu mg/dL 154 09/13/18 06:21 Hemoglobin A1c 7.0 % (4.0-6.0) H 09/13/18 06:21 Osmolality 242 mosm/kg (280-301) L* 09/13/18 06:21 Plasma Lactic Acid Nam 1.2 mmol/L (0.7-2.0) 09/16/18 16:54 Uric Acid 3.0 mg/dL (3.7-7.4) L 09/14/18 21:03 Calcium 8.7 mg/dL (8.4-10.2) 09/16/18 17:05 Phosphorus 3.6 mg/dL (2.5-4.5) 09/16/18 05:12 Magnesium 1.6 mg/dL (1.6-2.3) 09/16/18 05:12 Total Bilirubin 1.1 mg/dL (0.2-1.3) 09/13/18 06:21 AST 37 U/L (14-36) H 09/13/18 06:21 ALT 15 U/L (9-52) 09/13/18 06:21 Alkaline Phosphatase 81 U/L (38-126) 09/13/18 06:21 Total Creatine Kinase 64 U/L (30-135) 09/12/18 14:50 CK-MB (CK-2) 1.3 ng/mL (0.0-2.4) 09/12/18 14:50 CK-MB (CK-2) Rel Index 2.0 09/12/18 14:50 Troponin I <0.012 ng/mL (0.000-0.034) 09/12/18 14:50 Total Protein 5.7 g/dL (6.3-8.2) L 09/13/18 06:21 Albumin 3.0 g/dL (3.5-5.0) L 09/13/18 06:21 TSH 1.720 mIU/L (0.465-4.680) 09/13/18 06:21 PTH Intact 25.4 pg/mL (14.0-72.0) 09/14/18 21:03 Urine Osmolality 299 mosm/kg (50-1400) 09/13/18 15:54 Ur Random Sodium 49 mmol/L 09/13/18 15:54 Microbiology 09/12/18 14:50 Blood Blood Culture - Preliminary No Growth after 96 hours Microbiology 09/12/18 14:50 Blood Blood Culture - Preliminary No Growth after 96 hours Assessment and Plan (1) Gross hematuria Current Visit: Yes Status: Acute Code(s): R31.0 - GROSS HEMATURIA SNOMED Code(s): 699497237 (2) Traumatic ulcer of right lower leg with fat layer exposed Current Visit: No Status: Acute Code(s): L97.912 - NON-PRS CHR ULC UNSP PRT OF R LOW LEG W FAT LAYER EXPOSED SNOMED Code(s): 41310074 (3) Hyponatremia Current Visit: Yes Status: Acute Code(s): E87.1 - HYPO-OSMOLALITY AND HYPONATREMIA SNOMED Code(s): 33522604 (4) Altered mental status Narrative/Plan: 73-year-old woman presents to Hospital from the extended care facility with altered mental status thought evidence of significant hyponatremia. She's been seen by nephrology receiving hypertonic saline and is having some improvement of her hyponatremia. She however is now developed a fever with concerns to pneumonia given her severe underlying pulmonary disease or from the urinary system given the difficulty with the gross hematuria. She has multiple antibiotic ALLERGIES and vancomycin and Azactam will be utilized this in her prior cultures she's had evidence of enterococcus, as well as E. coli that are susceptible to current antibiotic choice. It is noted she has multiple antibiotic ALLERGIES that does give some challenged treatment. Cultures will determine course of antibiotic therapy at discharge. She does not have any type of permanent IV access at this time We will utilize a bordered foam dressing for the injury to the right buttocks area. The prior extensive lesion to the right lower extremity appears to be healed at this time. Skin moisturization is helpful. Current Visit: Yes Status: Acute Code(s): R41.82 - ALTERED MENTAL STATUS, UNSPECIFIED SNOMED Code(s): 172871500
[2018-09-17] MEDS: AZTREONAM 1 GM in SODIUM CHLORIDE 0.9% 50 ML IVPB SCH ×3 (00:07→17:03)
--- NOTE | 2018-09-17 00:11 | CT ---
EXAMINATION TYPE: CT brain wo con DATE OF EXAM: 09/16/2018 COMPARISON: 08/09/2018 HISTORY: AMS CT DLP: 1150.4 mGycm Automated exposure control for dose reduction was used. FINDINGS: There is diffuse atrophy. There is no mass effect nor midline shift. There is no sign of intracranial hemorrhage. There is patchy hypodensity in the periventricular white matter. The calvarium is intact . There is incomplete pneumatization of the right mastoid sinus. IMPRESSION: THERE IS SOME RIGHT-SIDED MASTOIDITIS THAT HAS PROGRESSED COMPARED TO 08/09/2018 EXAM.. CEREBRAL ATRO PHY AND CHRONIC SMALL VESSEL ISCHEMIA.
[2018-09-17] MEDS: INSULIN ASPART 100 UNIT/ML 1 ML 10 ML VIAL SQ SCH ×5 (03:00→20:28)
[2018-09-17 03:07] LABS: Glucose,Whole Blood 305 mg/dL (75-99)
[2018-09-17 05:54] LABS: Basophils % (A) 0 %; Eosinophils # (A) 0.1 k/uL (0-0.7); Eosinophils % (A) 1 %; HCT 27.1 % (34.0-46.0); HGB 8.8 gm/dL (11.4-16.0); Lymphocytes # (A) 0.2 k/uL (1.0-4.8); Lymphocytes % (A) 2 %; MCH 32.5 pg (25.0-35.0); MCHC 32.5 g/dL (31.0-37.0); MCV 100.2 fL (80.0-100.0); Macrocytosis Slight; Mean Platelet Volume 7.8; Monocytes # (A) 0.4 k/uL (0-1.0); Monocytes % (A) 4 %; Neutrophils # (A) 9.4 k/uL (1.3-7.7); Neutrophils % (A) 92 %; RBC 2.71 m/uL (3.80-5.40); RDW 14.1 % (11.5-15.5); WBC 10.3 k/uL (3.8-10.6)
[2018-09-17] MEDS: PANTOPRAZOLE 40 MG TABLET PO SCH (05:58)
[2018-09-17] MEDS ORDERED: VANCOMYCIN 1,000 MG in SODIUM CHLORIDE 0.9% 250 ML IVPB SCH ×2 (06:00→22:00)
[2018-09-17 06:04] LABS: Calcium 8.5 mg/dL (8.4-10.2); Magnesium 1.7 mg/dL (1.6-2.3); Phosphorus 2.9 mg/dL (2.5-4.5); Potassium 4.9 mmol/L (3.5-5.1)
[2018-09-17 06:09] LABS: Platelet Count 92 k/uL (150-450)
[2018-09-17] MEDS: LEVOTHYROXINE 137 MCG TAB PO SCH (06:45)
[2018-09-17] MEDS: SYMBICORT 160-4.5 MCG INHALER INHALATION SCH ×2 (06:58→19:45)
--- NOTE | 2018-09-17 07:07 | XR ---
EXAMINATION TYPE: XR chest 1V DATE OF EXAM: 09/17/2018 HISTORY: CHronic pleural effusion. REFERENCE: Previous study dated 09/16/2018. FINDINGS: The heart is enlarged. There is vascular congestion and bilateral edema. There is worsening atelectasis in the left upper lobe. There is a small left effusion. IMPRESSION: FINDINGS A WORSENING HEART FAILURE.
[2018-09-17 07:34] LABS: Glucose,Whole Blood 201 mg/dL (75-99)
[2018-09-17] MEDS: METOPROLOL TARTRATE 25 MG TAB PO SCH ×3 (08:14→20:29)
[2018-09-17] MEDS: AMIODARONE 200 MG TAB PO SCH (08:20)
[2018-09-17] MEDS: TERIPARATIDE 20 MCG SQ SCH (08:22)
[2018-09-17] MEDS: CARBIDOPA-LEVODOPA 25-100 MG 1 EACH TAB PO SCH ×3 (08:22→20:30)
[2018-09-17] MEDS: SODIUM CHLORIDE TAB 1 GM TAB PO SCH ×2 (08:23→20:29)
[2018-09-17] MEDS: PRIMIDONE 50 MG TAB PO SCH (08:24)
[2018-09-17] MEDS: AMMONIUM LACTATE 12% LOTION 225 GM BTL TOPICAL SCH (08:36)
--- NOTE | 2018-09-17 11:40 | P.PN ---
Subjective Progress Note Date: 09/17/18 Principal diagnosis: This is a 73-year-old female being followed up for acute and chronic recurrent hyponatremia. Her workup has demonstrated normal TSH at 1.7, serum cortisol has been 6 in 2016 and a repeat one is 8 on 08/10/2008 and more recently, urine osmolarity of 299 and a urine sodium of 49, she has not responded to one dose of Samsca. She was given 3% saline urine intermittently she has been diuresed. It should be noted that she has chronic recurrent hyponatremia for the last few years. Most of her's urine osmolalities are high therefore this is not a hyponatremia from T and toast syndrome. Possibilities are SIADH versus CHF. A chest x-ray is suggestive congestive heart failure. Objective - Vital Signs Vital signs: Vital Signs Temp 98 F 09/17/18 08:00 Pulse 65 09/17/18 11:00 Resp 22 09/17/18 11:00 BP 121/101 09/17/18 11:00 Pulse Ox 98 09/17/18 11:00 Intake & Output 09/16/18 09/17/18 09/17/18 18:59 06:59 18:59 Intake Total 520 455 325 Output Total 1240 215 95 Balance -720 240 230 Weight 64.3 kg 59.3 kg Intake: IV 0 255 325 0.9 KVO 55 25 Aztreonam 1 gm In Sodium 50 50 Chloride 0.9% 50 ml @ 100 mls/hr IVPB Q8HR [facility] Rx# :[id number] Sodium Chloride 0.9% 250 150 ml @ 250 mls/hr IV .Q1H [facility] Rx#:[id number] Sodium Chloride 3%( 0 Hypertonic) 500 ml @ 25 mls/hr IV .Q20H [facility] Rx#: [id number] Vancomycin 1,000 mg In 250 Sodium Chloride 0.9% 250 ml @ 125 mls/hr IVPB Q12H [facility] Rx#:[id number] Intake, IV Titration 400 Amount Aztreonam 1 gm In Sodium 50 Chloride 0.9% 50 ml @ 100 mls/hr IVPB Q8HR [facility] Rx# :[id number] Magnesium Sulfate-D5w Pmx 100 1 gm In Dextrose/Water 1 100ml.bag @ 100 mls/hr IVPB Q1H [facility] Rx#: [id number] Vancomycin 1,000 mg In 250 Sodium Chloride 0.9% 250 ml @ 125 mls/hr IVPB Q12H [facility] Rx#:[id number] Oral 120 200 Output: Urine 1240 215 95 Other: Voiding Method Indwelling Catheter Indwelling Catheter Indwelling Catheter # Voids 1 On examination she is awake alert but disoriented. HEENT exam no JVP neck is supple no facial asymmetry Lungs are significant for moderate amount of wheezing and diminished air entry bilaterally She is on nasal cannula oxygen Heart sounds are unremarkable no murmur rub gallop Abdomen soft nontender nondistended Extremity exam was no edema Neurologically awake alert but disoriented. She is able to say that she is at [facility] but she was unable to recall the year day or date. He moves all her extremities. - Labs CBC & Chem 7: 09/17/18 05:15 09/17/18 05:15 Labs: Abnormal Lab Results - Last 24 Hours (Table) 09/16/18 09/16/18 09/16/18 Range/Units 10:55 11:27 14:50 WBC (3.8-10.6) k/uL RBC (3.80-5.40) m/uL Hgb (11.4-16.0) gm/dL Hct (34.0-46.0) % MCV (80.0-100.0) fL Plt Count (150-450) k/uL Neutrophils # (1.3-7.7) k/uL Lymphocytes # (1.0-4.8) k/uL ABG pH (7.35-7.45) ABG pO2 (83-108) mmHg ABG HCO3 (21-25) mmol/L ABG Total CO2 (19-24) mmol/L Sodium 127 L 123 L (137-145) mmol/L Potassium 5.7 H (3.5-5.1) mmol/L Chloride (98-107) mmol/L BUN (7-17) mg/dL Glucose (74-99) mg/dL POC Glucose (mg/dL) 242 H (75-99) mg/dL 09/16/18 09/16/18 09/16/18 Range/Units 16:47 17:02 17:05 WBC 13.7 H (3.8-10.6) k/uL RBC 3.17 L (3.80-5.40) m/uL Hgb 10.0 L (11.4-16.0) gm/dL Hct 30.8 L (34.0-46.0) % MCV (80.0-100.0) fL Plt Count 139 L (150-450) k/uL Neutrophils # 12.7 H (1.3-7.7) k/uL Lymphocytes # 0.2 L (1.0-4.8) k/uL ABG pH (7.35-7.45) ABG pO2 (83-108) mmHg ABG HCO3 (21-25) mmol/L ABG Total CO2 (19-24) mmol/L Sodium 127 L (137-145) mmol/L Potassium 5.2 H (3.5-5.1) mmol/L Chloride 89 L (98-107) mmol/L BUN 26 H (7-17) mg/dL Glucose 120 H (74-99) mg/dL POC Glucose (mg/dL) 145 H (75-99) mg/dL 09/16/18 09/16/18 09/17/18 Range/Units 17:12 20:43 02:56 WBC (3.8-10.6) k/uL RBC (3.80-5.40) m/uL Hgb (11.4-16.0) gm/dL Hct (34.0-46.0) % MCV (80.0-100.0) fL Plt Count (150-450) k/uL Neutrophils # (1.3-7.7) k/uL Lymphocytes # (1.0-4.8) k/uL ABG pH 7.47 H (7.35-7.45) ABG pO2 68 L (83-108) mmHg ABG HCO3 31 H (21-25) mmol/L ABG Total CO2 33 H (19-24) mmol/L Sodium (137-145) mmol/L Potassium (3.5-5.1) mmol/L Chloride (98-107) mmol/L BUN (7-17) mg/dL Glucose (74-99) mg/dL POC Glucose (mg/dL) 183 H 305 H (75-99) mg/dL 09/17/18 09/17/18 09/17/18 Range/Units 05:15 05:15 07:22 WBC (3.8-10.6) k/uL RBC 2.71 L (3.80-5.40) m/uL Hgb 8.8 L (11.4-16.0) gm/dL Hct 27.1 L (34.0-46.0) % MCV 100.2 H (80.0-100.0) fL Plt Count 92 L (150-450) k/uL Neutrophils # 9.4 H (1.3-7.7) k/uL Lymphocytes # 0.2 L (1.0-4.8) k/uL ABG pH (7.35-7.45) ABG pO2 (83-108) mmHg ABG HCO3 (21-25) mmol/L ABG Total CO2 (19-24) mmol/L Sodium 124 L (137-145) mmol/L Potassium (3.5-5.1) mmol/L Chloride 91 L (98-107) mmol/L BUN 36 H (7-17) mg/dL Glucose 186 H (74-99) mg/dL POC Glucose (mg/dL) 201 H (75-99) mg/dL Microbiology - Last 24 Hours (Table) 09/16/18 17:30 Urine Culture - Preliminary Urine,Catheterized 09/12/18 14:50 Blood Culture - Preliminary Blood No Growth after 96 hours Assessment and Plan Assessment: Impression 1. chronic recurrent hyponatremia likely SIADH. Other possibility is congestive heart failure. 2. More recent x-rays is consistent with congestive heart failure. 3. Hematuria with a Smith catheter, ultrasound shows a 3 cm hypoechoic area in the upper pole of left kidney which was not seen in previous ultrasound in 2016 and further needs to be followed up with a computed tomography scan. A urine culture since yesterday spending 3. Previous history of atrial fibrillation, COPD, diabetes, Recommendation. 1. Will vigorously diuresed and see how she will respond. We'll start Lasix 40 every 12 and monitor her electrolytes.
--- NOTE | 2018-09-17 11:59 | P.PN ---
Subjective Progress Note Date: 09/17/18 Principal diagnosis: Acute diastolic congestive heart failure and hyponatremia related to hypervolemia. This is a very pleasant 73-year-old female patient with follows with Dr. Odonnell is her primary care physician. She has a known history of moderate persistent chronic bronchial asthma, Parkinson's, skin cancer, congestive heart failure, CVA/TIA, diabetes mellitus with lower extremity neuropathy, GERD, hypertension, renal disease, hypothyroidism, sarcoidosis, macular degeneration, anxiety, atrial fibrillation anticoagulated with Eliquis. This has a history of right lower extremity wound is being followed in the wound clinic. She was brought here to the emergency room yesterday from an extended care facility with blood work revealing a sodium of 119. Her chest x-ray revealed evidence of fluid volume overload with a left pleural effusion as well. We are consulted for the same. She is seen today in consultation on the selective care unit. She is currently awake and alert in no acute distress. She is maintaining O2 saturations in the 90s on room air. She's been afebrile. White count 5.3. Hemoglobin 10.2. Sodium 120. Creatinine 0.43. Chest x-ray reveals evidence of cardiomegaly and interstitial changes with some pulmonary vascular congestion and a [id number] left pleural effusion. She is currently on Lasix 20 mg IV push every 12 hours. Patient was reevaluated again today on 09/14/2018, she is now in the intensive care unit, and she was transferred mostly because her sodium went down to 117 last night. Patient had to be placed on 3% saline, and after few hours of 3% saline, her sodium went up to 122. This was discontinued, patient remains on fluid restrictions, and she was seen by nephrology on consultation. It was felt that her hyponatremia is secondary to poor solute intake. Her sodium level went as high as 123 today, and her urine osmolality was 299. She had normal thyroid profile. And she was also noted to have hypomagnesemia. Nephrology recommended maintaining the patient on 1200 mL fluid restriction, and encouraged to stay off IV fluids for now. Patient even received Lasix yesterday because her presentation showed some interstitial edema based on the chest x-ray. Her magnesium was corrected and it is 2.2 today. Her sodium this afternoon is 123. Patient is feeling better, she is less short of breath, no cough no wheezing, no chest pain. No fever no chills no hemoptysis no nausea no vomiting no abdominal pain, no diarrhea. Patient was reevaluated today on 09/15/2018, remains in the ICU, patient was restarted again last night on 3% saline, and today's sodium is up to 126. Remains on fluid restrictions, remains on diuretics, and she received a dose of Lasix earlier today. Overall the patient is feeling better, she denies any cough no wheezing no shortness of breath no chest pain no headache no blurred vision no dizziness. No nausea no vomiting and no abdominal pain. Labs and chest x-ray were reviewed, chest x-ray did show evidence of interstitial edema. Reevaluated today on 09/16/2018, patient remains in the ICU, her sodium drifted again down and she required to be placed on 3% saline last night by nephrology. However the level was not worrisome enough to consider 3% saline since the lowest recorded yesterday was 122, today her sodium is up to 129 and later checked today it was 127. Patient is asymptomatic, denies any cough no wheezing no shortness of breath, her chest x-ray continues to show evidence of interstitial edema, hence I recommended a dose of Lasix 40 mg IV push which was given earlier today. Patient was reevaluated today on 09/17/2018, remains in the ICU, her sodium continues to fluctuate up and down, today is 124. Patient developed some mental status changes yesterday, and she developed fever with a hi temp, patient was started on antibiotics in the form of aztreonam, vancomycin, I requested a consultation with infectious disease, patient had a CT of the brain which came back nondiagnostic. She did have mastoiditis. At any rate the patient is better today, breathing easier, she is on few liters nasal cannula, saturating well, and she remains on antibiotics as noted above. Her mental status has significantly improved over the last 24 hours. All her labs were reviewed chest x-ray was reviewed, again her sodium is 124 today, hemoglobin is 8.8. She was seen by nephrology again today, and now pushing diuretics because there is a strong feeling that her hyponatremia is hypervolemic in nature considering the findings on the chest x-ray. Objective - Vital Signs Vital signs: Vital Signs Temp 98 F 09/17/18 08:00 Pulse 65 09/17/18 11:00 Resp 22 09/17/18 11:00 BP 121/101 09/17/18 11:00 Pulse Ox 98 09/17/18 11:00 Intake & Output 09/16/18 09/17/18 09/17/18 18:59 06:59 18:59 Intake Total 520 455 325 Output Total 1240 215 95 Balance -720 240 230 Weight 64.3 kg 59.3 kg Intake: IV 0 255 325 0.9 KVO 55 25 Aztreonam 1 gm In Sodium 50 50 Chloride 0.9% 50 ml @ 100 mls/hr IVPB Q8HR [facility] Rx# :[id number] Sodium Chloride 0.9% 250 150 ml @ 250 mls/hr IV .Q1H [facility] Rx#:[id number] Sodium Chloride 3%( 0 Hypertonic) 500 ml @ 25 mls/hr IV .Q20H [facility] Rx#: [id number] Vancomycin 1,000 mg In 250 Sodium Chloride 0.9% 250 ml @ 125 mls/hr IVPB Q12H [facility] Rx#:[id number] Intake, IV Titration 400 Amount Aztreonam 1 gm In Sodium 50 Chloride 0.9% 50 ml @ 100 mls/hr IVPB Q8HR [facility] Rx# :[id number] Magnesium Sulfate-D5w Pmx 100 1 gm In Dextrose/Water 1 100ml.bag @ 100 mls/hr IVPB Q1H [facility] Rx#: [id number] Vancomycin 1,000 mg In 250 Sodium Chloride 0.9% 250 ml @ 125 mls/hr IVPB Q12H [facility] Rx#:[id number] Oral 120 200 Output: Urine 1240 215 95 Other: Voiding Method Indwelling Catheter Indwelling Catheter Indwelling Catheter # Voids 1 - Exam Physical Exam: Revealed a 73-year-old female in no distress. Head: Atraumatic, normocephalic. HEENT:[Neck is supple.] [No neck masses.] [No thyromegaly.] [No JVD.] Chest: [Minimal crackles at the bases, no rhonchi and no wheezes..] Cardiac Exam: [Normal S1 and S2, no S3 gallop, no murmur.] Abdomen: [Soft, nontender, no megaly, no rebound, no guarding, normal bowel sounds.] Extremities: Evidence of healing traumatic injury to the right lower extremity and small injury to the right lateral buttock with minimal bloody drainage. Neurological Exam: [No focal neurologic deficit.] Psychiatric: Normal mood, affect and mental status examination. Skin: No rashes. - Labs CBC & Chem 7: 09/17/18 05:15 09/17/18 05:15 Labs: Abnormal Lab Results - Last 24 Hours (Table) 09/16/18 09/16/18 09/16/18 Range/Units 14:50 16:47 17:02 WBC 13.7 H (3.8-10.6) k/uL RBC 3.17 L (3.80-5.40) m/uL Hgb 10.0 L (11.4-16.0) gm/dL Hct 30.8 L (34.0-46.0) % MCV (80.0-100.0) fL Plt Count 139 L (150-450) k/uL Neutrophils # 12.7 H (1.3-7.7) k/uL Lymphocytes # 0.2 L (1.0-4.8) k/uL ABG pH (7.35-7.45) ABG pO2 (83-108) mmHg ABG HCO3 (21-25) mmol/L ABG Total CO2 (19-24) mmol/L Sodium 123 L (137-145) mmol/L Potassium 5.7 H (3.5-5.1) mmol/L Chloride (98-107) mmol/L BUN (7-17) mg/dL Glucose (74-99) mg/dL POC Glucose (mg/dL) 145 H (75-99) mg/dL 09/16/18 09/16/18 09/16/18 Range/Units 17:05 17:12 20:43 WBC (3.8-10.6) k/uL RBC (3.80-5.40) m/uL Hgb (11.4-16.0) gm/dL Hct (34.0-46.0) % MCV (80.0-100.0) fL Plt Count (150-450) k/uL Neutrophils # (1.3-7.7) k/uL Lymphocytes # (1.0-4.8) k/uL ABG pH 7.47 H (7.35-7.45) ABG pO2 68 L (83-108) mmHg ABG HCO3 31 H (21-25) mmol/L ABG Total CO2 33 H (19-24) mmol/L Sodium 127 L (137-145) mmol/L Potassium 5.2 H (3.5-5.1) mmol/L Chloride 89 L (98-107) mmol/L BUN 26 H (7-17) mg/dL Glucose 120 H (74-99) mg/dL POC Glucose (mg/dL) 183 H (75-99) mg/dL 09/17/18 09/17/18 09/17/18 Range/Units 02:56 05:15 05:15 WBC (3.8-10.6) k/uL RBC 2.71 L (3.80-5.40) m/uL Hgb 8.8 L (11.4-16.0) gm/dL Hct 27.1 L (34.0-46.0) % MCV 100.2 H (80.0-100.0) fL Plt Count 92 L (150-450) k/uL Neutrophils # 9.4 H (1.3-7.7) k/uL Lymphocytes # 0.2 L (1.0-4.8) k/uL ABG pH (7.35-7.45) ABG pO2 (83-108) mmHg ABG HCO3 (21-25) mmol/L ABG Total CO2 (19-24) mmol/L Sodium 124 L (137-145) mmol/L Potassium (3.5-5.1) mmol/L Chloride 91 L (98-107) mmol/L BUN 36 H (7-17) mg/dL Glucose 186 H (74-99) mg/dL POC Glucose (mg/dL) 305 H (75-99) mg/dL 09/17/18 Range/Units 07:22 WBC (3.8-10.6) k/uL RBC (3.80-5.40) m/uL Hgb (11.4-16.0) gm/dL Hct (34.0-46.0) % MCV (80.0-100.0) fL Plt Count (150-450) k/uL Neutrophils # (1.3-7.7) k/uL Lymphocytes # (1.0-4.8) k/uL ABG pH (7.35-7.45) ABG pO2 (83-108) mmHg ABG HCO3 (21-25) mmol/L ABG Total CO2 (19-24) mmol/L Sodium (137-145) mmol/L Potassium (3.5-5.1) mmol/L Chloride (98-107) mmol/L BUN (7-17) mg/dL Glucose (74-99) mg/dL POC Glucose (mg/dL) 201 H (75-99) mg/dL Microbiology - Last 24 Hours (Table) 09/16/18 17:30 Urine Culture - Preliminary Urine,Catheterized 09/12/18 14:50 Blood Culture - Preliminary Blood No Growth after 96 hours Assessment and Plan Assessment: #1 hypovolemic hyponatremia secondary to diastolic congestive heart failure. #2 Acute exacerbation of diastolic congestive heart failure with small to moderate left-sided pleural effusion. #3 Atrial fibrillation, normally on eliquis #4 Diabetes mellitus. #5 Diabetic neuropathy. #6 Lower extremity wound. #7 History of CVA/TIA. #8 Chronic moderate persistent bronchial asthma. #9 Hypertension. #10 Hypothyroidism. #11 History of sarcoidosis. #12 britt hematuria, Eliquis is presently on hold. #13 traumatic ulcer of the right lower extremity, possible cellulitis and sepsis. Recommendation: Continue fluid restrictions, continue Lasix, continue to monitor sodium on a daily basis, sodium today is 124. Started on Lasix 40 mg twice a day as per nephrology. Considering her episodes of fever, mental status change, and possible sepsis, I think it would be best to keep the patient in the ICU for now. Continue vancomycin and aztreonam. Cultures are pending. Prognosis remains very poor and guarded at this point. Time with Patient: Less than 30
[2018-09-17] MEDS: amLODIPine 5 MG TAB PO SCH (12:42)
[2018-09-17] MEDS: VIT A,C & E-LUTEIN-MINERALS 1 EACH TAB PO SCH (12:44)
[2018-09-17] MEDS: FERROUS SULFATE 325 MG TAB PO SCH (12:49)
[2018-09-17] MEDS: MULTIVITAMINS, THERA 1 EACH TAB PO SCH (12:49)
[2018-09-17] MEDS: FUROSEMIDE 10 MG/ML 4 ML VIAL IV SCH ×2 (12:49→20:28)
[2018-09-17] MEDS: THIAMINE 100 MG TAB PO SCH (12:49)
[2018-09-17] MEDS: CALCIUM CARB-VIT D 500MG-200UN 1 EACH TAB PO SCH (17:03)
[2018-09-17] MEDS: FOLIC ACID 1 MG TAB PO SCH (17:03)
[2018-09-17 17:07] LABS: Glucose,Whole Blood 215 mg/dL (75-99)
[2018-09-17] MEDS: IPRATROPIUM-ALBUTEROL 3 ML NEB INHALATION PRN (19:45)
[2018-09-17] MEDS: ATORVASTATIN 10 MG TAB PO SCH (20:28)
[2018-09-17] MEDS: LORATADINE 10 MG TAB PO SCH (20:29)
[2018-09-17] MEDS: OXYBUTYNIN 10 MG TAB.ER.24 PO SCH (20:29)
[2018-09-17] MEDS: INSULIN DETEMIR 100 UNIT/ML 10 ML VIAL SQ SCH (20:29)
[2018-09-17 20:34] LABS: Glucose,Whole Blood 265 mg/dL (75-99)
--- NOTE | 2018-09-17 22:27 | PN ---
PROGRESS NOTE DATE OF SERVICE: 09/17/2018 This 73-year-old woman who was admitted with severe hyponatremia, also had 3% saline. Currently the sodium is 124. The patient still monitored in ICU. The patient is still confused periodically. The p.o. intake appears to be poor. CT scan did not show any acute abnormality at this time. The most recent chest x-ray showed evidence of some CHF also. The patient is being closely monitored at this time. The patient also had hematuria after Smith insertion. Infectious Disease following the patient closely. The cultures are negative so far. PAST MEDICAL HISTORY: Reviewed. REVIEW OF SYSTEMS: CARDIOVASCULAR: No angina or palpitations. RESPIRATORY: As mentioned earlier. GI no nausea or vomiting. : No dysuria. CENTRAL NERVOUS SYSTEM: As mentioned earlier. MEDS: Current medications are reviewed and include _. 1. Tylenol 650 q.6h. 2. DuoNeb q.i.d. and p.r.n. 3. Cordarone 20 mg daily. 4. Norvasc 5 mg daily. 5. Lipitor 10 mg. 6. Aztreonam 1 g IV q.8h. 7. Dulcolax. 8. Symbicort 160/4.5 two puffs b.i.d. 9. Os-Scar with vitamin D. 11.Colace 100 mg q.h.s. 12.Vitamin B12. 13.Iron sulfate. 14.Folic acid. 15.Lasix. 16.Apresoline. 17.NovoLog. 18.Levemir 7 units q.h.s. 19.Synthroid 137 mcg. 20.Melatonin. 21.Lopressor. 22.Magnesium oxide. 23.Narcan. 25.Ditropan XL. 26.Protonix. 27.Mysoline. 28.Vitamin B1. 29.Vancomycin. PHYSICAL EXAM: Patient is alert, oriented x3. The pulse is 61, blood pressure 105/92, respiration 20, temperature 98.2, pulse ox 98% on 3 L. HEENT: Conjunctivae normal. NECK: No jugular venous distention. No carotid bruit. No lymph node enlargement. CARDIOVASCULAR: S1, S2. RESPIRATIONS: Breath sounds diminished in the bases. A few scattered rhonchi and crackles. ABDOMEN: Soft, nontender. No mass palpable. LEGS: No edema. No swelling. NERVOUS SYSTEM: Higher functions as mentioned earlier. Moves all 4 limbs. No focal motor deficits Lymphatics: No lymph nodes palpable in the neck, axillae or groin. SKIN: No ulcer, no rash. No bleeding. LABS: WBC 10.2, hemoglobin is 8.8, sodium 124 and glucose noted. ASSESSMENT: 1. Possible Syndrome of inappropriate antidiuretic hormone versus congestive heart failure. 2. Severe hyponatremia secondary to poor p.o. intake, status post 3% normal saline. 3. Congestive heart failure acute exacerbation with acute on chronic diastolic dysfunction with left-sided pleural effusion. 4. Atrial fibrillation chronic. 5. Hypomagnesemia. 6. Diabetes mellitus type 2 on insulin pump. 7. Gastroesophageal reflux disease. 8. Right lower extremity chronic ulcer. 9. Mild to moderate protein calorie malnutrition. 10.Anxiety. 11.Hematuria status post Smith catheter insertion. RECOMMENDATIONS AND DISCUSSION: Recommend to continue current medications, management. Symptomatic treatment. Otherwise at this time, multiple consultants are following the patient closely. Nephrology and pulmonology is also following the patient. SIADH also a possibility. I would recommend continue the current medications, management and symptomatic treatment. Otherwise, 1 dose of Lasix also given. We will continue to monitor. Lasix b.i.d. was started by Dr. Means. We will monitor fluid and electrolytes balance closely limiting p.o. intake. Otherwise, will continue to monitor. 3% saline has been continued. Continue with continue with broad-spectrum IV antibiotics. Cultures are negative so far. Further recommendations to follow. MMODL / IJN: [id number] / CRISTÓBAL
[2018-09-18] MEDS: AZTREONAM 1 GM in SODIUM CHLORIDE 0.9% 50 ML IVPB SCH ×4 (00:03→22:56)
[2018-09-18] MEDS: MELATONIN 3 MG TABLET PO PRN ×2 (00:03→20:43)
[2018-09-18 02:54] LABS: Glucose,Whole Blood 94 mg/dL (75-99)
[2018-09-18] MEDS: INSULIN ASPART 100 UNIT/ML 1 ML 10 ML VIAL SQ SCH ×5 (03:37→20:37)
[2018-09-18] MEDS: PANTOPRAZOLE 40 MG TABLET PO SCH (05:55)
[2018-09-18] MEDS: LEVOTHYROXINE 137 MCG TAB PO SCH (05:55)
[2018-09-18 06:18] LABS: HCT 25.9 % (34.0-46.0); HGB 8.6 gm/dL (11.4-16.0); MCH 32.2 pg (25.0-35.0); MCHC 33.2 g/dL (31.0-37.0); MCV 96.9 fL (80.0-100.0); Mean Platelet Volume 7.2; RBC 2.67 m/uL (3.80-5.40); WBC 7.7 k/uL (3.8-10.6)
[2018-09-18 06:19] LABS: Platelet Count 94 k/uL (150-450)
[2018-09-18 06:22] LABS: Anion Gap 4 mmol/L; Calcium 8.9 mg/dL (8.4-10.2); Carbon Dioxide 29 mmol/L (22-30); Chloride 96 mmol/L (98-107); Glucose 85 mg/dL (74-99); Magnesium 1.3 mg/dL (1.6-2.3); Phosphorus 2.6 mg/dL (2.5-4.5); Sodium 129 mmol/L (137-145)
[2018-09-18 06:29] LABS: Blood Urea Nitrogen 42 mg/dL (7-17); Potassium 5.4 mmol/L (3.5-5.1)
[2018-09-18 06:47] LABS: Band Neutrophils % 7 %; Eosinophils # (M) 0.08 k/uL (0-0.7); Lymphocytes # (M) 0.69 k/uL (1.0-4.8); Monocytes # (M) 0.85 k/uL (0-1.0); Neutrophils % (M) 72 %; Nucleated Red Blood Cells 0 /100 WBC (0-0); Total Cells Counted 100
--- NOTE | 2018-09-18 07:09 | XR ---
EXAMINATION TYPE: XR chest 1V DATE OF EXAM: 09/18/2018 HISTORY: CHronic pleural effusion. REFERENCE: Previous study dated 09/17/2018. FINDINGS: The heart is enlarged. There is vascular congestion and pulmonary edema. I could not exclud e a small left effusion. IMPRESSION: CONTINUING CHANGES OF CONGESTIVE HEART FAILURE.
[2018-09-18 07:14] LABS: Glucose,Whole Blood 96 mg/dL (75-99)
[2018-09-18] MEDS: SYMBICORT 160-4.5 MCG INHALER INHALATION SCH ×2 (07:37→20:34)
--- NOTE | 2018-09-18 08:46 | P.PN ---
Subjective Progress Note Date: 09/18/18 Principal diagnosis: This is a 73-year-old female being followed up for acute and chronic recurrent hyponatremia. Her workup has demonstrated normal TSH at 1.7, serum cortisol has been 6 in 2016 and a repeat one is 8 on 08/10/2008 and more recently, urine osmolarity of 299 and a urine sodium of 49, she has not responded to one dose of Samsca. She was given 3% saline urine intermittently she has been diuresed. It should be noted that she has chronic recurrent hyponatremia for the last few years. Most of her's urine osmolalities are high therefore this is not a hyponatremia from T and toast syndrome. Possibilities are SIADH versus CHF. A chest x-ray is suggestive congestive heart failure. She was started on IV Lasix 40 every 12, yesterday 09/17/2018. She responded with improvement in her sodium but she was also on salt tablets. Salt tablets were discontinued this morning. Urine output was improved to 8 and 55 over the last 12 hour shift. Subjectively she remains profoundly weak difficult even sit her up because she complains of pain in her neck and back. Appetite is poor. She looks pale. She is on oxygen and has shortness of breath and as tense skin suggestive of chronic steroid use. Her chest x-ray has consistent abnormal findings for several years now urine going up to 2016 2 years ago Objective - Vital Signs Vital signs: Vital Signs Temp 98.4 F 09/18/18 04:00 Pulse 65 09/18/18 06:00 Resp 23 09/18/18 06:00 BP 121/54 09/18/18 06:00 Pulse Ox 97 09/18/18 06:00 Intake & Output 09/17/18 09/18/18 09/18/18 18:59 06:59 18:59 Intake Total 1310 1050 Output Total 445 855 Balance 865 195 Weight 62.2 kg Intake: IV 410 610 0.9 KVO 60 60 Aztreonam 1 gm In Sodium 100 50 Chloride 0.9% 50 ml @ 100 mls/hr IVPB Q8HR [facility] Rx# :[id number] Vancomycin 1,000 mg In 250 500 Sodium Chloride 0.9% 250 ml @ 125 mls/hr IVPB Q12H [facility] Rx#:[id number] Oral 900 440 Output: Urine 445 855 Other: Voiding Method Indwelling Catheter Indwelling Catheter Indwelling Catheter On exertion she is profoundly weak unable to sit up even with help. Complains of pain in the neck and back. HEENT exam JVP is 4 but supine position, neck is supple no facial asymmetry. Lungs are clear to auscultation with an occasional end expiratory wheezing and occasional coarse crackle. Fair air entry bilaterally Heart sounds are unremarkable. No rub murmur gallop Normal sinus rhythm. Abdomen soft nontender scaphoid Nondistended nontender Extremity exam was trace to minimal edema with thickening of skin Neurologically awake alert oriented but profoundly weak - Labs CBC & Chem 7: 09/18/18 06:00 09/18/18 06:00 Labs: Abnormal Lab Results - Last 24 Hours (Table) 09/17/18 09/17/18 09/18/18 Range/Units 16:55 20:23 06:00 RBC 2.67 L (3.80-5.40) m/uL Hgb 8.6 L (11.4-16.0) gm/dL Hct 25.9 L (34.0-46.0) % Plt Count 94 L (150-450) k/uL Lymphocytes # (Manual) 0.69 L (1.0-4.8) k/uL Sodium (137-145) mmol/L Potassium (3.5-5.1) mmol/L Chloride (98-107) mmol/L BUN (7-17) mg/dL POC Glucose (mg/dL) 215 H 265 H (75-99) mg/dL Magnesium (1.6-2.3) mg/dL 09/18/18 Range/Units 06:00 RBC (3.80-5.40) m/uL Hgb (11.4-16.0) gm/dL Hct (34.0-46.0) % Plt Count (150-450) k/uL Lymphocytes # (Manual) (1.0-4.8) k/uL Sodium 129 L (137-145) mmol/L Potassium 5.4 H (3.5-5.1) mmol/L Chloride 96 L (98-107) mmol/L BUN 42 H (7-17) mg/dL POC Glucose (mg/dL) (75-99) mg/dL Magnesium 1.3 L (1.6-2.3) mg/dL Microbiology - Last 24 Hours (Table) 09/16/18 16:53 Blood Culture Gram Stain - Preliminary Blood Blood Culture - Preliminary Staphylococcus aureus 09/16/18 17:30 Urine Culture - Final Urine,Catheterized 09/12/18 14:50 Blood Culture - Preliminary Blood No Growth after 120 hours 09/16/18 16:53 Blood Culture - Final Blood Assessment and Plan Assessment: Impression 1. 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 Other possibility is congestive heart failure. Started on Lasix 40 every 12 yesterday 09/17/2017, with improvement in sodium to 129. 2. Acute kidney injury, She is in prerenal state with high BUN. Her chest x- rays have shown consistently infiltrates since 2016 and today's x-rays is consistent with congestive heart failure. 3. Hematuria with a Smith catheter, ultrasound shows a 3 cm hypoechoic area in the upper pole of left kidney which was not seen in previous ultrasound in 2016 and further needs to be followed up with a computed tomography scan. A urine culture since yesterday spending 3. Previous history of atrial fibrillation, COPD, diabetes, 4. Positive blood cultures staph aureus from cultures are drawn 09/16/2018. Patient is on vancomycin. Recommendation. 1. Continue IV Lasix every 12. 2. Discontinue the salt tablet. 3. Check orthostatic changes. 4. Watch for acute kidney injury as patient is on vancomycin.
[2018-09-18] MEDS: THIAMINE 100 MG TAB PO SCH (09:01)
[2018-09-18] MEDS: PRIMIDONE 50 MG TAB PO SCH (09:01)
[2018-09-18] MEDS: FUROSEMIDE 10 MG/ML 4 ML VIAL IV SCH ×2 (09:01→20:38)
[2018-09-18] MEDS: amLODIPine 5 MG TAB PO SCH (09:01)
[2018-09-18] MEDS: AMIODARONE 200 MG TAB PO SCH (09:01)
[2018-09-18] MEDS: METOPROLOL TARTRATE 25 MG TAB PO SCH ×2 (09:01→20:43)
[2018-09-18] MEDS: MULTIVITAMINS, THERA 1 EACH TAB PO SCH (09:01)
[2018-09-18] MEDS: FERROUS SULFATE 325 MG TAB PO SCH (09:01)
[2018-09-18] MEDS: VANCOMYCIN 1,250 MG in SODIUM CHLORIDE 0.9% 250 ML IVPB SCH (09:02)
[2018-09-18] MEDS: TERIPARATIDE 20 MCG SQ SCH (09:02)
[2018-09-18] MEDS: VIT A,C & E-LUTEIN-MINERALS 1 EACH TAB PO SCH (09:03)
[2018-09-18] MEDS: CARBIDOPA-LEVODOPA 25-100 MG 1 EACH TAB PO SCH ×3 (09:03→22:01)
[2018-09-18] MEDS: AMMONIUM LACTATE 12% LOTION 225 GM BTL TOPICAL SCH (09:04)
[2018-09-18 11:59] LABS: Glucose,Whole Blood 268 mg/dL (75-99)
[2018-09-18] MEDS ORDERED: ERGOCALCIFEROL 50,000 UNIT CAP PO SCH (12:00)
--- NOTE | 2018-09-18 14:18 | P.PN ---
Subjective Progress Note Date: 09/18/18 Principal diagnosis: Acute diastolic congestive heart failure and hyponatremia related to hypervolemia. This is a very pleasant 73-year-old female patient with follows with Dr. Odonnell is her primary care physician. She has a known history of moderate persistent chronic bronchial asthma, Parkinson's, skin cancer, congestive heart failure, CVA/TIA, diabetes mellitus with lower extremity neuropathy, GERD, hypertension, renal disease, hypothyroidism, sarcoidosis, macular degeneration, anxiety, atrial fibrillation anticoagulated with Eliquis. This has a history of right lower extremity wound is being followed in the wound clinic. She was brought here to the emergency room yesterday from an extended care facility with blood work revealing a sodium of 119. Her chest x-ray revealed evidence of fluid volume overload with a left pleural effusion as well. We are consulted for the same. She is seen today in consultation on the selective care unit. She is currently awake and alert in no acute distress. She is maintaining O2 saturations in the 90s on room air. She's been afebrile. White count 5.3. Hemoglobin 10.2. Sodium 120. Creatinine 0.43. Chest x-ray reveals evidence of cardiomegaly and interstitial changes with some pulmonary vascular congestion and a [id number] left pleural effusion. She is currently on Lasix 20 mg IV push every 12 hours. Patient was reevaluated again today on 09/14/2018, she is now in the intensive care unit, and she was transferred mostly because her sodium went down to 117 last night. Patient had to be placed on 3% saline, and after few hours of 3% saline, her sodium went up to 122. This was discontinued, patient remains on fluid restrictions, and she was seen by nephrology on consultation. It was felt that her hyponatremia is secondary to poor solute intake. Her sodium level went as high as 123 today, and her urine osmolality was 299. She had normal thyroid profile. And she was also noted to have hypomagnesemia. Nephrology recommended maintaining the patient on 1200 mL fluid restriction, and encouraged to stay off IV fluids for now. Patient even received Lasix yesterday because her presentation showed some interstitial edema based on the chest x-ray. Her magnesium was corrected and it is 2.2 today. Her sodium this afternoon is 123. Patient is feeling better, she is less short of breath, no cough no wheezing, no chest pain. No fever no chills no hemoptysis no nausea no vomiting no abdominal pain, no diarrhea. Patient was reevaluated today on 09/15/2018, remains in the ICU, patient was restarted again last night on 3% saline, and today's sodium is up to 126. Remains on fluid restrictions, remains on diuretics, and she received a dose of Lasix earlier today. Overall the patient is feeling better, she denies any cough no wheezing no shortness of breath no chest pain no headache no blurred vision no dizziness. No nausea no vomiting and no abdominal pain. Labs and chest x-ray were reviewed, chest x-ray did show evidence of interstitial edema. Reevaluated today on 09/16/2018, patient remains in the ICU, her sodium drifted again down and she required to be placed on 3% saline last night by nephrology. However the level was not worrisome enough to consider 3% saline since the lowest recorded yesterday was 122, today her sodium is up to 129 and later checked today it was 127. Patient is asymptomatic, denies any cough no wheezing no shortness of breath, her chest x-ray continues to show evidence of interstitial edema, hence I recommended a dose of Lasix 40 mg IV push which was given earlier today. Patient was reevaluated today on 09/17/2018, remains in the ICU, her sodium continues to fluctuate up and down, today is 124. Patient developed some mental status changes yesterday, and she developed fever with a hi temp, patient was started on antibiotics in the form of aztreonam, vancomycin, I requested a consultation with infectious disease, patient had a CT of the brain which came back nondiagnostic. She did have mastoiditis. At any rate the patient is better today, breathing easier, she is on few liters nasal cannula, saturating well, and she remains on antibiotics as noted above. Her mental status has significantly improved over the last 24 hours. All her labs were reviewed chest x-ray was reviewed, again her sodium is 124 today, hemoglobin is 8.8. She was seen by nephrology again today, and now pushing diuretics because there is a strong feeling that her hyponatremia is hypervolemic in nature considering the findings on the chest x-ray. Reevaluated today on 09/18/2018, patient remains in the ICU, her sodium is significantly improved, is up to 129 today. Chest x-ray is also showing slight improvement in her congestive heart failure. Remains on Lasix at 40 mg IV push every 12 hours. Patient is hemodynamically stable, her blood cultures came back positive for staph aureus, patient is on antibiotic which I started a few days ago including Azactam and vancomycin. Urine cultures are pending. Labs today showed a relatively normal CBC hemoglobin is 8.6. Sodium is 129 potassium 5.4 chloride is 96 BUN is 42 creatinine 0.64. Objective - Vital Signs Vital signs: Vital Signs Temp 98.7 F 09/18/18 08:00 Pulse 65 09/18/18 11:00 Resp 15 09/18/18 11:00 BP 114/58 09/18/18 11:00 Pulse Ox 98 09/18/18 11:00 Intake & Output 09/17/18 09/18/18 09/18/18 18:59 06:59 18:59 Intake Total 1310 1050 325 Output Total 445 855 270 Balance 865 195 55 Weight 62.2 kg Intake: IV 410 610 325 0.9 KVO 60 60 25 Aztreonam 1 gm In Sodium 100 50 50 Chloride 0.9% 50 ml @ 100 mls/hr IVPB Q8HR [facility] Rx# :[id number] Vancomycin 1,000 mg In 250 500 Sodium Chloride 0.9% 250 ml @ 125 mls/hr IVPB Q12H [facility] Rx#:[id number] Vancomycin 1,250 mg In 250 Sodium Chloride 0.9% 250 ml @ 125 mls/hr IVPB Q16H [facility] Rx#:[id number] Oral 900 440 Output: Urine 445 855 270 Other: Voiding Method Indwelling Catheter Indwelling Catheter Indwelling Catheter - Exam Physical Exam: Revealed a 73-year-old female in no distress. Noted to be sleepy , did not get much sleep last night. But arousable. Head: Atraumatic, normocephalic. HEENT:[Neck is supple.] [No neck masses.] [No thyromegaly.] [No JVD.] Chest: [Minimal crackles at the bases, no rhonchi and no wheezes..] Cardiac Exam: [Normal S1 and S2, no S3 gallop, no murmur.] Abdomen: [Soft, nontender, no megaly, no rebound, no guarding, normal bowel sounds.] Extremities: Evidence of healing traumatic injury to the right lower extremity and small injury to the right lateral buttock with minimal bloody drainage. Neurological Exam: [No focal neurologic deficit.] Psychiatric: Normal mood, affect and mental status examination. Skin: As noted above, previous healing traumatic injury to right lower extremity , wrapped with sterile dressing. - Labs CBC & Chem 7: 09/18/18 06:00 09/18/18 06:00 Labs: Abnormal Lab Results - Last 24 Hours (Table) 09/17/18 09/17/18 09/18/18 Range/Units 16:55 20:23 06:00 RBC 2.67 L (3.80-5.40) m/uL Hgb 8.6 L (11.4-16.0) gm/dL Hct 25.9 L (34.0-46.0) % Plt Count 94 L (150-450) k/uL Lymphocytes # (Manual) 0.69 L (1.0-4.8) k/uL Sodium (137-145) mmol/L Potassium (3.5-5.1) mmol/L Chloride (98-107) mmol/L BUN (7-17) mg/dL POC Glucose (mg/dL) 215 H 265 H (75-99) mg/dL Magnesium (1.6-2.3) mg/dL 09/18/18 09/18/18 Range/Units 06:00 11:48 RBC (3.80-5.40) m/uL Hgb (11.4-16.0) gm/dL Hct (34.0-46.0) % Plt Count (150-450) k/uL Lymphocytes # (Manual) (1.0-4.8) k/uL Sodium 129 L (137-145) mmol/L Potassium 5.4 H (3.5-5.1) mmol/L Chloride 96 L (98-107) mmol/L BUN 42 H (7-17) mg/dL POC Glucose (mg/dL) 268 H (75-99) mg/dL Magnesium 1.3 L (1.6-2.3) mg/dL Microbiology - Last 24 Hours (Table) 09/16/18 16:53 Blood Culture Gram Stain - Preliminary Blood Blood Culture - Preliminary Staphylococcus aureus 09/16/18 17:30 Urine Culture - Final Urine,Catheterized 12/31/18 14:50 Blood Culture - Preliminary Blood No Growth after 120 hours 09/16/18 16:53 Blood Culture - Final Blood Assessment and Plan Assessment: #1 hypervolemic hyponatremia secondary to diastolic congestive heart failure. #2 Acute exacerbation of diastolic congestive heart failure with small to moderate left-sided pleural effusion. #3 Atrial fibrillation, normally on eliquis #4 Diabetes mellitus. #5 Diabetic neuropathy. #6 Lower extremity wound. #7 History of CVA/TIA. #8 Chronic moderate persistent bronchial asthma. #9 Hypertension. #10 Hypothyroidism. #11 History of sarcoidosis. #12 britt hematuria, Eliquis is presently on hold. #13 traumatic ulcer of the right lower extremity, possible cellulitis and sepsis. #14 staph aureus bacteremia, remains on vancomycin being followed by infectious disease. Likely source of the staph aureus bacteremia could be related to her right lower extremity. Recommendation: Continue fluid restrictions, continue Lasix, continue to monitor sodium on a daily basis, sodium today is 129. Continue Lasix 40 mg twice a day as per nephrology. Staph aureus bacteremia, source is yet to be determined, probably from her right lower extremity. Patient is on vancomycin and she is also on Azactam. Antibiotics will be adjusted accordingly, however the patient is ALLERGIES to multiple antibiotics as listed in her history. It would be difficult to choose another antibiotic , other than vancomycin and Azactam for now. Discussed with the nurse taking care of the patient, patient could be transferred to a medical floor with remote telemetry. We'll continue to follow. Time with Patient: Less than 30
[2018-09-18] MEDS: FOLIC ACID 1 MG TAB PO SCH (16:19)
[2018-09-18] MEDS: CALCIUM CARB-VIT D 500MG-200UN 1 EACH TAB PO SCH (16:19)
[2018-09-18 17:34] LABS: Glucose,Whole Blood 113 mg/dL (75-99)
--- NOTE | 2018-09-18 19:37 | PN ---
PROGRESS NOTE DATE OF SERVICE: 09/18/2018. This 73-year-old woman with a past history of multiple medical problems was admitted with significant change in mental status and hyponatremia. Patient closely monitored. Patient is complaining of weakness. Patient's magnesium is also low. Patient closely monitored in the ICU. The p.o. intake remains poor. Past medical history and review of systems could not be taken as the patient is mildly confused. CURRENT MEDICATIONS: 1. Tylenol 650 q.6h. 2. DuoNeb q.i.d. and p.r.n. 3. Cordarone 200 mg. 4. Norvasc 5 mg. 5. Lipitor 10 mg. 6. Motrin 1 g IV q.i.d. 7. Ex-Lax 10 mg. 8. Symbicort 4.5 two puffs b.i.d. 9. Os-Scar with vitamin D b.i.d. 10.Sinemet 25/100 1 p.o. b.i.d. 11.Colace 100 mg b.i.d. p.r.n. 12.Vitamin D2 50,000. 13.Iron sulfate 320 mg daily. 14.Folic acid 1 mg. 15.Lasix 40 mg IV b.i.d. 16.Apresoline 10 mg p.r.n. 17.NovoLog scale. 18.Levemir 7 units q.h.s. 19.Synthroid. 20.Claritin. 21.Milk of magnesia. 22.Melatonin. 23.Lopressor. 24.( ). 25.Zofran. 26.Percocet. 27.Mysoline. 28.Vitamin B1. 29.Vancomycin. PHYSICAL EXAM: Patient is alert and oriented x2. Pulse 63, blood pressure 140/90, respiration 20, temperature 98.2, pulse ox 97% on 2 L. HEENT: Conjunctivae normal. Oral mucosa moist. NECK: No jugular venous distention. No lymph node enlargement. CARDIOVASCULAR: S1, S2. RESPIRATORY: Diminished breath sounds muffled at the bases. Scattered rhonchi, no crackles. Expiratory wheeze also present. ABDOMEN: Soft, nontender. LEGS: No swelling. NERVOUS SYSTEM: Mild diffuse weakness. SKIN: No ulcer, no rash. LAB STUDIES: WBC 7, hemoglobin is 8.2, sodium 120, potassium 5.4. ASSESSMENT: 1. Severe hyponatremia persistent, recurrent, intermittent possible SIADH or possibly secondary to congestive heart failure, multifactorial. 2. Status post treatment with 3% saline. 3. Congestive heart failure acute exacerbation, acute on chronic diastolic dysfunction with left-sided pleural effusion. 4. Atrial fibrillation, chronic. 5. Hypomagnesemia. 6. Diabetes mellitus type 2 on insulin pump. 7. Gastroesophageal reflux disease. 8. Right lower extremity chronic ulcer. 9. Mild to moderate protein calorie malnutrition. 10.Anxiety. 11.History of hematuria secondary to Smith catheter. RECOMMENDATION: Recommend to continue current management and symptomatic treatment. Continue the antibiotic and the rest of the medications. Monitor sodium closely. Otherwise, current medications are reconciled and reviewed. Prognosis guarded. Closely follow with multiple consultants. Nephrology input appreciated. Further recommendations to follow. MMCHETNAL / NATALIEN: [id number] /
[2018-09-18 20:29] LABS: Glucose,Whole Blood 252 mg/dL (75-99)
[2018-09-18] MEDS: ATORVASTATIN 10 MG TAB PO SCH (20:38)
[2018-09-18] MEDS: LORATADINE 10 MG TAB PO SCH (20:38)
[2018-09-18] MEDS: OXYBUTYNIN 10 MG TAB.ER.24 PO SCH (22:00)
[2018-09-18] MEDS: INSULIN DETEMIR 100 UNIT/ML 10 ML VIAL SQ SCH (22:00)
[2018-09-18 22:15] LABS: Glucose,Whole Blood 245 mg/dL (75-99)
[2018-09-18] MEDS: guaiFENesin-Coden 100-10MG/5ML 10 ML CUP PO PRN (22:56)
[2018-09-19] MEDS: VANCOMYCIN 1,250 MG in SODIUM CHLORIDE 0.9% 250 ML IVPB SCH ×2 (00:44→18:49)
[2018-09-19 02:15] LABS: Glucose,Whole Blood 176 mg/dL (75-99)
[2018-09-19] MEDS: INSULIN ASPART 100 UNIT/ML 1 ML 10 ML VIAL SQ SCH ×5 (02:16→21:25)
[2018-09-19] MEDS: IPRATROPIUM-ALBUTEROL 3 ML NEB INHALATION PRN ×5 (04:25→21:50)
[2018-09-19] MEDS: PANTOPRAZOLE 40 MG TABLET PO SCH (05:53)
[2018-09-19] MEDS: LEVOTHYROXINE 137 MCG TAB PO SCH (05:53)
[2018-09-19 05:57] LABS: HCT 26.3 % (34.0-46.0); HGB 8.5 gm/dL (11.4-16.0); MCH 31.5 pg (25.0-35.0); MCHC 32.4 g/dL (31.0-37.0); MCV 97.4 fL (80.0-100.0); Mean Platelet Volume 7.3; Platelet Count 106 k/uL (150-450); RDW 13.9 % (11.5-15.5)
[2018-09-19 06:02] LABS: Anion Gap 4 mmol/L; Blood Urea Nitrogen 40 mg/dL (7-17); Calcium 8.4 mg/dL (8.4-10.2); Carbon Dioxide 31 mmol/L (22-30); Chloride 91 mmol/L (98-107); Glucose 86 mg/dL (74-99); Magnesium 1.1 mg/dL (1.6-2.3); Phosphorus 2.6 mg/dL (2.5-4.5); Potassium 4.3 mmol/L (3.5-5.1); Sodium 126 mmol/L (137-145)
[2018-09-19 06:33] LABS: Lymphocytes # (M) 0.46 k/uL (1.0-4.8); Monocytes # (M) 0.66 k/uL (0-1.0); Neutrophils # (M) 3.93 k/uL (1.3-7.7); Neutrophils % (M) 77 %; Nucleated Red Blood Cells 1 /100 WBC (0-0); Total Cells Counted 200; WBC 5.1 k/uL (3.8-10.6)
[2018-09-19] MEDS ORDERED: Magnesium Replacement Protocol 1 EACH MISC MISCELLANE PRN (06:57)
[2018-09-19 07:13] LABS: Glucose,Whole Blood 96 mg/dL (75-99)
--- NOTE | 2018-09-19 08:06 | XR ---
EXAMINATION TYPE: XR chest 1V DATE OF EXAM: 09/19/2018 COMPARISON: Prior chest x-ray 09/18/2018 HISTORY: Chronic pleural effusion, abnormal chest x-ray TECHNIQUE: Single frontal view of the chest is obtained. FINDINGS: Findings are similar. Perihilar airspace disease suspected, persistent obscured left hemid iaphragm. Heart remains enlarged. Granulomatous change present in the mediastinum and hilar regions. Interstitium is increased. No evident pneumothorax. Remote traumatic change, arthropathy noted in the shoulders. There are overlying cardiac leads. IMPRESSION: Correlate for possible congestive heart failure. Pneumonia not excluded. Follow-up recom mended.
[2018-09-19] MEDS: MAGNESIUM SULFATE-D5W PMX 1 GM in DEXTROSE/WATER 1 100ML.BAG IVPB SCH ×3 (08:22→12:33)
[2018-09-19] MEDS: AZTREONAM 1 GM in SODIUM CHLORIDE 0.9% 50 ML IVPB SCH ×2 (08:39→17:32)
[2018-09-19] MEDS: SYMBICORT 160-4.5 MCG INHALER INHALATION SCH ×2 (08:43→18:52)
[2018-09-19 09:33] LABS: Glucose,Whole Blood 308 mg/dL (75-99)
[2018-09-19 09:33] LABS: Glucose,Whole Blood 329 mg/dL (75-99)
[2018-09-19] MEDS: METOPROLOL TARTRATE 25 MG TAB PO SCH ×2 (09:43→19:48)
[2018-09-19] MEDS: CARBIDOPA-LEVODOPA 25-100 MG 1 EACH TAB PO SCH ×3 (09:43→19:48)
[2018-09-19] MEDS: amLODIPine 5 MG TAB PO SCH (09:43)
[2018-09-19] MEDS: PRIMIDONE 50 MG TAB PO SCH (09:43)
[2018-09-19] MEDS: AMIODARONE 200 MG TAB PO SCH (09:43)
[2018-09-19] MEDS: FUROSEMIDE 10 MG/ML 4 ML VIAL IV SCH ×2 (09:44→19:48)
--- NOTE | 2018-09-19 09:54 | P.PN ---
Subjective Progress Note Date: 09/19/18 Principal diagnosis: Acute diastolic congestive heart failure and hyponatremia related to hypervolemia This is a very pleasant 73-year-old female patient with follows with Dr. Odonnell is her primary care physician. She has a known history of moderate persistent chronic bronchial asthma, Parkinson's, skin cancer, congestive heart failure, CVA/TIA, diabetes mellitus with lower extremity neuropathy, GERD, hypertension, renal disease, hypothyroidism, sarcoidosis, macular degeneration, anxiety, atrial fibrillation anticoagulated with Eliquis. This has a history of right lower extremity wound is being followed in the wound clinic. She was brought here to the emergency room yesterday from an extended care facility with blood work revealing a sodium of 119. Her chest x-ray revealed evidence of fluid volume overload with a left pleural effusion as well. We are consulted for the same. She is seen today in consultation on the selective care unit. She is currently awake and alert in no acute distress. She is maintaining O2 saturations in the 90s on room air. She's been afebrile. White count 5.3. Hemoglobin 10.2. Sodium 120. Creatinine 0.43. Chest x-ray reveals evidence of cardiomegaly and interstitial changes with some pulmonary vascular congestion and a [id number] left pleural effusion. She is currently on Lasix 20 mg IV push every 12 hours. Patient was reevaluated again today on 09/14/2018, she is now in the intensive care unit, and she was transferred mostly because her sodium went down to 117 last night. Patient had to be placed on 3% saline, and after few hours of 3% saline, her sodium went up to 122. This was discontinued, patient remains on fluid restrictions, and she was seen by nephrology on consultation. It was felt that her hyponatremia is secondary to poor solute intake. Her sodium level went as high as 123 today, and her urine osmolality was 299. She had normal thyroid profile. And she was also noted to have hypomagnesemia. Nephrology recommended maintaining the patient on 1200 mL fluid restriction, and encouraged to stay off IV fluids for now. Patient even received Lasix yesterday because her presentation showed some interstitial edema based on the chest x-ray. Her magnesium was corrected and it is 2.2 today. Her sodium this afternoon is 123. Patient is feeling better, she is less short of breath, no cough no wheezing, no chest pain. No fever no chills no hemoptysis no nausea no vomiting no abdominal pain, no diarrhea. Patient was reevaluated today on 09/15/2018, remains in the ICU, patient was restarted again last night on 3% saline, and today's sodium is up to 126. Remains on fluid restrictions, remains on diuretics, and she received a dose of Lasix earlier today. Overall the patient is feeling better, she denies any cough no wheezing no shortness of breath no chest pain no headache no blurred vision no dizziness. No nausea no vomiting and no abdominal pain. Labs and chest x-ray were reviewed, chest x-ray did show evidence of interstitial edema. Reevaluated today on 09/16/2018, patient remains in the ICU, her sodium drifted again down and she required to be placed on 3% saline last night by nephrology. However the level was not worrisome enough to consider 3% saline since the lowest recorded yesterday was 122, today her sodium is up to 129 and later checked today it was 127. Patient is asymptomatic, denies any cough no wheezing no shortness of breath, her chest x-ray continues to show evidence of interstitial edema, hence I recommended a dose of Lasix 40 mg IV push which was given earlier today. Patient was reevaluated today on 09/17/2018, remains in the ICU, her sodium continues to fluctuate up and down, today is 124. Patient developed some mental status changes yesterday, and she developed fever with a hi temp, patient was started on antibiotics in the form of aztreonam, vancomycin, I requested a consultation with infectious disease, patient had a CT of the brain which came back nondiagnostic. She did have mastoiditis. At any rate the patient is better today, breathing easier, she is on few liters nasal cannula, saturating well, and she remains on antibiotics as noted above. Her mental status has significantly improved over the last 24 hours. All her labs were reviewed chest x-ray was reviewed, again her sodium is 124 today, hemoglobin is 8.8. She was seen by nephrology again today, and now pushing diuretics because there is a strong feeling that her hyponatremia is hypervolemic in nature considering the findings on the chest x-ray. Reevaluated today on 09/18/2018, patient remains in the ICU, her sodium is significantly improved, is up to 129 today. Chest x-ray is also showing slight improvement in her congestive heart failure. Remains on Lasix at 40 mg IV push every 12 hours. Patient is hemodynamically stable, her blood cultures came back positive for staph aureus, patient is on antibiotic which I started a few days ago including Azactam and vancomycin. Urine cultures are pending. Labs today showed a relatively normal CBC hemoglobin is 8.6. Sodium is 129 potassium 5.4 chloride is 96 BUN is 42 creatinine 0.64. On 09/19/2018 patient seen again in follow-up in the intensive care unit. She is awake and alert, in no acute distress, currently on 2 L per nasal cannula, with a pulse ox of 96%, she is afebrile, hemodynamically stable. Today's chest x-ray has been reviewed by Dr. Enriquez, and showed possible congestive heart failure. She is on empiric antibiotic coverage in the form of vancomycin and Azactam. Preliminary Blood culture from 09/16/2018 were positive for staph aureus, urine culture was negative. Denies any fever or chills, today's lab work has been reviewed, showed WBC of 5.1, hemoglobin of 8.5, serum sodium is 126, potassium is 4.3, chloride is 91, CO2 31, BUN is 40 and creatinine 0.51, magnesium is 1.1, nephrology and infectious disease are following. On sounds are positive for coarse crackles. Her logically patient is intact, no confusion , no seizures. Indweling Catheter is in, patient is nonoliguric. IV fluid is 0.9 normal saline at a rate of 20 ML per hour. Objective - Vital Signs Vital signs: Vital Signs Temp 98.4 F 09/19/18 08:00 Pulse 66 09/19/18 09:00 Resp 18 09/19/18 09:00 BP 116/49 09/19/18 09:00 Pulse Ox 96 09/19/18 09:00 Intake & Output 09/18/18 09/19/18 09/19/18 18:59 06:59 18:59 Intake Total 410 615 10 Output Total 525 775 45 Balance -115 -160 -35 Weight 62.4 kg Intake: IV 410 365 10 0.9 KVO 55 65 10 Aztreonam 1 gm In Sodium 105 50 Chloride 0.9% 50 ml @ 100 mls/hr IVPB Q8HR [facility] Rx# :[id number] Vancomycin 1,250 mg In 250 250 Sodium Chloride 0.9% 250 ml @ 125 mls/hr IVPB Q16H [facility] Rx#:[id number] Oral 250 Output: Urine 525 775 45 Other: Voiding Method Indwelling Catheter Indwelling Catheter - Exam Physical Exam: Revealed a 73-year-old female in no distress. Noted to be sleepy , did not get much sleep last night. But arousable. Head: Atraumatic, normocephalic. HEENT:[Neck is supple.] [No neck masses.] [No thyromegaly.] [No JVD.] Chest: [Minimal crackles at the bases, no rhonchi and no wheezes..] Cardiac Exam: [Normal S1 and S2, no S3 gallop, no murmur.] Abdomen: [Soft, nontender, no megaly, no rebound, no guarding, normal bowel sounds.] Extremities: Evidence of healing traumatic injury to the right lower extremity and small injury to the right lateral buttock with minimal bloody drainage. Neurological Exam: [No focal neurologic deficit.] Psychiatric: Normal mood, affect and mental status examination. Skin: As noted above, previous healing traumatic injury to right lower extremity , wrapped with sterile dressing. - Labs CBC & Chem 7: 09/19/18 05:23 09/19/18 05:23 Labs: Abnormal Lab Results - Last 24 Hours (Table) 09/17/18 09/17/18 09/18/18 Range/Units 11:53 11:54 11:48 RBC (3.80-5.40) m/uL Hgb (11.4-16.0) gm/dL Hct (34.0-46.0) % Plt Count (150-450) k/uL Lymphocytes # (Manual) (1.0-4.8) k/uL Nucleated RBCs (0-0) /100 WBC Sodium (137-145) mmol/L Chloride (98-107) mmol/L Carbon Dioxide (22-30) mmol/L BUN (7-17) mg/dL Creatinine (0.52-1.04) mg/dL POC Glucose (mg/dL) 308 H 329 H 268 H (75-99) mg/dL Magnesium (1.6-2.3) mg/dL 09/18/18 09/18/18 09/18/18 Range/Units 17:22 20:18 22:00 RBC (3.80-5.40) m/uL Hgb (11.4-16.0) gm/dL Hct (34.0-46.0) % Plt Count (150-450) k/uL Lymphocytes # (Manual) (1.0-4.8) k/uL Nucleated RBCs (0-0) /100 WBC Sodium (137-145) mmol/L Chloride (98-107) mmol/L Carbon Dioxide (22-30) mmol/L BUN (7-17) mg/dL Creatinine (0.52-1.04) mg/dL POC Glucose (mg/dL) 113 H 252 H 245 H (75-99) mg/dL Magnesium (1.6-2.3) mg/dL 09/19/18 09/19/18 09/19/18 Range/Units 02:03 05:23 05:23 RBC 2.70 L (3.80-5.40) m/uL Hgb 8.5 L (11.4-16.0) gm/dL Hct 26.3 L (34.0-46.0) % Plt Count 106 L (150-450) k/uL Lymphocytes # (Manual) 0.46 L (1.0-4.8) k/uL Nucleated RBCs 1 H (0-0) /100 WBC Sodium 126 L (137-145) mmol/L Chloride 91 L (98-107) mmol/L Carbon Dioxide 31 H (22-30) mmol/L BUN 40 H (7-17) mg/dL Creatinine 0.51 L (0.52-1.04) mg/dL POC Glucose (mg/dL) 176 H (75-99) mg/dL Magnesium 1.1 L (1.6-2.3) mg/dL Microbiology - Last 24 Hours (Table) 09/16/18 16:53 Blood Culture Gram Stain - Preliminary Blood Blood Culture - Preliminary Staphylococcus aureus 09/12/18 14:50 Blood Culture - Final Blood No Growth after 144 hours Assessment and Plan Plan: #1 hypervolemic hyponatremia secondary to diastolic congestive heart failure. #2 Acute exacerbation of diastolic congestive heart failure with small to moderate left-sided pleural effusion. #3 Atrial fibrillation, normally on eliquis #4 Diabetes mellitus. #5 Diabetic neuropathy. #6 Lower extremity wound. #7 History of CVA/TIA. #8 Chronic moderate persistent bronchial asthma. #9 Hypertension. #10 Hypothyroidism. #11 History of sarcoidosis. #12 britt hematuria, Jillian is presently on hold. #13 traumatic ulcer of the right lower extremity, possible cellulitis and sepsis. #14 staph aureus bacteremia, remains on vancomycin being followed by infectious disease. Likely source of the staph aureus bacteremia could be related to her right lower extremity. Plan: Patient is doing well, no specific complaints, no difficulty breathing, neurologically confusion, signs of delirium, serum sodium is 126, lower than yesterday, nephrology is following. Blood cultures were positive for staph aureus, final culture is pending, antibiotics per ID service recommendations. No fever no chills, today's chest x-ray has been reviewed with Dr. Enriquez, and showed creased interstitium, changes consistent with congestive heart failure, cannot exclude pneumonia. Continue with nebulized bronchodilators, encourage deep breathing and coughing. Patient is stable to transfer out of intensive care unit today to selective care unit. I performed a history & physical examination of the patient and discussed their management with my nurse practitioner, Alesha Rodriguez. I reviewed the nurse practitioner's note and agree with the documented findings and plan of care. Lung sounds are positive for scattered crackles. The findings and the impression was discussed with the patient. I attest to the documentation by the nurse practitioner. Time with Patient: Less than 30
[2018-09-19] MEDS ORDERED: SODIUM CHLORIDE TAB 1 GM TAB PO STA (10:11)
[2018-09-19] MEDS: TERIPARATIDE 20 MCG SQ SCH (10:13)
[2018-09-19] MEDS: AMMONIUM LACTATE 12% LOTION 225 GM BTL TOPICAL SCH (11:00)
[2018-09-19] MEDS: FERROUS SULFATE 325 MG TAB PO SCH (12:22)
[2018-09-19] MEDS: THIAMINE 100 MG TAB PO SCH (12:22)
[2018-09-19] MEDS: VIT A,C & E-LUTEIN-MINERALS 1 EACH TAB PO SCH (12:22)
[2018-09-19] MEDS: MULTIVITAMINS, THERA 1 EACH TAB PO SCH (12:23)
[2018-09-19 12:25] LABS: Glucose,Whole Blood 298 mg/dL (75-99)
--- NOTE | 2018-09-19 15:16 | PN ---
PROGRESS NOTE Soledad is a 73-year-old lady with history of paroxysmal atrial fibrillation and diastolic heart failure, who was admitted to hospital with right bundle and the diastolic heart failure, hyponatremia. This morning she is feeling better. Remains in sinus rhythm. On exam, heart rate is 68 beats per minute. Blood pressure is 126/53. Chest exam reveals good air entry bilaterally. Heart exam reveals first and second heart sounds. Systolic murmur at the apex. Abdomen is soft. Exam of the extremities did not reveal any edema. Peripheral pulses are palpable. ASSESSMENT: 1. Paroxysmal atrial fibrillation. 2. Chronic obstructive pulmonary disease. 3. History of diastolic heart failure. We will continue the patient on her current medications. MMODL / IJN: [id number] /
--- NOTE | 2018-09-19 16:07 | PN ---
PROGRESS NOTE DATE OF SERVICE: 09/17/2018 Mrs. Chou is a 73-year-old female who has been admitted with generalized weakness, shortness of breath. The patient has a problem with acute on chronic recurrent hyponatremia. The patient had extensive investigation done in the past and no definite etiology was determined. The patient has been treated with Samsca without any significant relief. The patient today is comfortable, but her chest x-ray is suggestive of congestive cardiac failure. Heart rate is 65 per minute. Patient is afebrile. Pulse oxygen saturation is 98%. Blood pressure is 120/100 mmHg. First and second heart sounds are heard. Lungs reveal bilateral diminished air entry, and scattered rhonchi are noted. Patient's sodium is 124, potassium is 4.9, creatinine is 0.94. FINAL IMPRESSION: This patient has acute on chronic diastolic heart failure. Patient also has a hemoglobin of 8.8. The patient has macrocytic anemia, exact etiology undetermined. RECOMMENDATIONS: The patient will be given IV Lasix as per the recommendations of Dr. Means, and we will follow the chest x-ray as well as serum sodium. MMODL / IJN: [id number] /
--- NOTE | 2018-09-19 16:07 | PN ---
PROGRESS NOTE DATE OF SERVICE: 09/18/2018 This patient has been treated for acute on chronic diastolic heart failure and the patient has a problem with recurrent hyponatremia. Patient is feeling better, is comfortable. Chest x-ray done today shows some improvement in the heart failure. Patient's blood pressure is 121/54 mmHg. Heart rate is 65 per minute. First and second heart sounds are heard. Lung examination reveals a few scattered wheezes. Sodium is 129, creatinine is 0.64. FINAL IMPRESSION: Patient's congestive heart failure is improving. Hyponatremia is improving. Continue the IV Lasix. MMODL / IJN: [id number] /
[2018-09-19 16:28] LABS: Glucose,Whole Blood 225 mg/dL (75-99)
[2018-09-19] MEDS: CALCIUM CARB-VIT D 500MG-200UN 1 EACH TAB PO SCH (17:33)
[2018-09-19] MEDS: FOLIC ACID 1 MG TAB PO SCH (17:33)
--- NOTE | 2018-09-19 17:58 | PN ---
PROGRESS NOTE DATE OF SERVICE: 09/19/2018 This 73-year-old woman was admitted with multiple medical problems was admitted with severe hyponatremia, SIADH possibly, had 3% saline. The patient also has CHF exacerbation as well currently the hematuria secondary to Smith catheter insertion. No chest pain. No palpitations. No fever. EXAM: Alert and oriented x2. Pulse 61, blood pressure ntd, respiration 18, temperature 97.2, pulse ox 100 percent on 2 L. HEENT: Conjunctivae normal. Oral mucosa moist. NECK: No jugular venous distention. No lymph node enlargement. CARDIOVASCULAR: S1, S2. RESPIRATORY: Diminished breath sounds muffled at the bases. Bilateral scattered rhonchi, no crackles. ABDOMEN: Soft, nontender. LEGS: No swelling. NERVOUS SYSTEM: No focal deficits. Smith catheter draining hematuria. LABS: WBC 5.1, hemoglobin is 8.4, sodium 126. ASSESSMENT: 1. Severe hyponatremia, persistent, recurrent, intermittent; possibly SIADH, possibly secondary to CHF, multifactorial. 2. Status post treatment with 3% saline. 3. Congestive heart failure acute exacerbation. 4. Acute on chronic diastolic dysfunction with left-sided pleural effusion. 5. Atrial fibrillation, chronic. 6. Hypomagnesemia. 7. Diabetes mellitus type 2 on insulin pump. 8. GERD. 9. Right lower extremity chronic ulcer. 10.Mild to moderate protein calorie malnutrition. 11.Anxiety. 12.Hematuria secondary to Simth catheter insertion. RECOMMENDATION: Continue current medications, continue to monitor, continue symptomatic treatment. Otherwise, at this time will monitor the patient closely. Prognosis guarded because of multiple complex medical issues. Further recommendations to follow. Repeat labs. PT/OT evaluation for possible ECF rehab. MMODL / IJN: [id number] / CRISTÓBAL
--- NOTE | 2018-09-19 18:13 | PN ---
PROGRESS NOTE Patient is seen for followup for hyponatremia. She is currently being diuresed. Her sodium level went up from 124 to 129 yesterday. However, today it is back down to 126. The patient received a dose of Lasix this morning. Blood pressure was around 120-119 mmHg systolic. The patient is awake, comfortable. She is not in any acute distress. Heart rate was at 66 per minute. She is afebrile. Examination of the heart, S1, S2. Examination of the lungs, bilateral breath sounds are heard. Abdomen is soft, nontender. Examination of the lower extremities shows no evidence of edema. BANK BOSS exam is grossly intact. Patient moving all 4 extremities. LABS: Show sodium 126, potassium 4.3, CO2 is 31, BUN 40, serum creatinine 0.5, magnesium 1.1. ASSESSMENT: 1. Hyponatremia. The patient was deemed to be hypervolemic. Yesterday, her sodium did improve with diuresis. However, her sodium is back down again. I will give her a dose of sodium chloride tab and if her sodium does not improve I will add tolvaptan. Blood pressure is slightly on the lower side, however, patient is not significantly hypotensive. 2. History of hyponatremia previously. There is a possibility of SIADH previously. 3. Acute kidney injury, prerenal, currently improved. 4. History of atrial fibrillation. PLAN: Sodium chloride tab x1 now. Continue with the Lasix. Repeat the serum sodium this evening and add tolvaptan if the patient remains hyponatremic. MMODL / IJN: [id number] /
[2018-09-19 18:16] LABS: Magnesium 1.9 mg/dL (1.6-2.3); Potassium 4.5 mmol/L (3.5-5.1)
--- NOTE | 2018-09-19 18:32 | P.PN ---
Progress Note - Text Progress Note Date: 09/19/18 Mrs. Chou's Smith catheter is still in place, and there continues to be evidence of gross hematuria. The renal ultrasound showed a 3 cm left upper pole cystic lesion, as well as a possible 1.8 cm right renal lesion. Although a computed tomography scan would be beneficial better visualizing these lesions , I do not believe it would change her management at this time. It would be my suggestion that she undergo outpatient cystoscopy to rule out intravesical pathology, and a renal ultrasound can be repeated in 6-12 months. Please notify me if I can be of any further assistance during this hospitalization.
[2018-09-19] MEDS ORDERED: ALPRAZolam 0.25 MG TAB PO PRN (18:54)
[2018-09-19] MEDS: guaiFENesin-Coden 100-10MG/5ML 10 ML CUP PO PRN (19:47)
[2018-09-19] MEDS: ATORVASTATIN 10 MG TAB PO SCH (19:48)
[2018-09-19] MEDS: LORATADINE 10 MG TAB PO SCH (19:48)
[2018-09-19] MEDS: MELATONIN 3 MG TABLET PO PRN (20:00)
[2018-09-19 21:05] LABS: Glucose,Whole Blood 208 mg/dL (75-99)
[2018-09-19] MEDS: INSULIN DETEMIR 100 UNIT/ML 10 ML VIAL SQ SCH (21:25)
[2018-09-19] MEDS: OXYBUTYNIN 10 MG TAB.ER.24 PO SCH (21:25)
--- NOTE | 2018-09-19 21:36 | P.PN ---
Subjective Progress Note Date: 09/19/18 73-year-old female with multiple medical illnesses including chronic persistent asthma, oxygen dependent lung disease, Parkinson's, multiple strokes and recurrent hyponatremia presents to Hospital from the extended care facility with increasing weakness and altered mental status. Is not evidence of significant hyponatremia that has been seen by nephrology and has been treated with some hypertonic saline to improve her hyponatremia. The patient is now developed a fever and had worsening mental status and was transferred to the intensive care unit. With a fever the infectious diseases consultation was requested. The patient's is present. Agrees that the wound to the right leg is definitely doing better. She however is developed significant hematuria after Smith catheter was placed. She's been seen by urology without need for surgical intervention at this time. Request for antibiotic therapy. patient status is improving she's moving out of the intensive care unit to the medical surgical unit. Hematuria continues and has been again seen by urological surgery with no plans for intervention at this time. Objective - Vital Signs Vital signs: Vital Signs Temp 97.6 F 09/19/18 14:44 Pulse 60 09/19/18 19:12 Resp 18 09/19/18 14:44 BP 138/69 09/19/18 14:44 Pulse Ox 100 09/19/18 14:44 Intake & Output 09/19/18 09/19/18 09/20/18 06:59 18:59 06:59 Intake Total 615 460 Output Total 775 490 Balance -160 -30 Weight 62.4 kg Intake: IV 365 130 0.9 KVO 65 80 Aztreonam 1 gm In Sodium 50 50 Chloride 0.9% 50 ml @ 100 mls/hr IVPB Q8HR [facility] Rx# :[id number] Vancomycin 1,250 mg In 250 Sodium Chloride 0.9% 250 ml @ 125 mls/hr IVPB Q16H [facility] Rx#:[id number] Intake, IV Titration 300 Amount Magnesium Sulfate-D5w Pmx 300 1 gm In Dextrose/Water 1 100ml.bag @ 100 mls/hr IVPB Q1H [facility] Rx#: [id number] Oral 250 30 Output: Urine 775 490 Other: Voiding Method Indwelling Catheter Indwelling Catheter - Exam 73-year-old female confused, opens eyes HEENT: Anicteric conjunctiva are pink and moist nasal mucosa grossly intact without significant lesions, there is no thrush. Neck: The neck is supple without significant lymphadenopathy or thyromegaly. Lungs: Good bilateral air entry without significant crackles or wheezing. There is no significant bronchial sounds. There is no egophony or dullness. Heart: Regular rate and rhythm with an audible S1-S2, no S3 no S4. There is no significant murmur click or rub, PMI was nondisplaced. Abdomen: Positive bowel sounds soft and nontender without palpable masses or organomegaly. There was no guarding or rebound. Extremities: The upper extremities have excellent pulses they are symmetric, no significant petechiae or telangiectasia. No splinter hemorrhages were noted. The lower extremities are free from significant edema. The peripheral pulses were 2+ and symmetric. Neuro: Arousable and moves extremities spontaneously Skin evidence of the healing traumatic injury to the right lower extremity. Has a small injury to the right lateral buttocks with some bloody drainage - Labs CBC & Chem 7: 09/19/18 05:23 09/19/18 16:20 Labs: Abnormal Lab Results - Last 24 Hours (Table) 09/17/18 09/17/18 09/18/18 Range/Units 11:53 11:54 22:00 RBC (3.80-5.40) m/uL Hgb (11.4-16.0) gm/dL Hct (34.0-46.0) % Plt Count (150-450) k/uL Lymphocytes # (Manual) (1.0-4.8) k/uL Nucleated RBCs (0-0) /100 WBC Sodium (137-145) mmol/L Chloride (98-107) mmol/L Carbon Dioxide (22-30) mmol/L BUN (7-17) mg/dL Creatinine (0.52-1.04) mg/dL POC Glucose (mg/dL) 308 H 329 H 245 H (75-99) mg/dL Magnesium (1.6-2.3) mg/dL 09/19/18 09/19/18 09/19/18 Range/Units 02:03 05:23 05:23 RBC 2.70 L (3.80-5.40) m/uL Hgb 8.5 L (11.4-16.0) gm/dL Hct 26.3 L (34.0-46.0) % Plt Count 106 L (150-450) k/uL Lymphocytes # (Manual) 0.46 L (1.0-4.8) k/uL Nucleated RBCs 1 H (0-0) /100 WBC Sodium 126 L (137-145) mmol/L Chloride 91 L (98-107) mmol/L Carbon Dioxide 31 H (22-30) mmol/L BUN 40 H (7-17) mg/dL Creatinine 0.51 L (0.52-1.04) mg/dL POC Glucose (mg/dL) 176 H (75-99) mg/dL Magnesium 1.1 L (1.6-2.3) mg/dL 09/19/18 09/19/18 09/19/18 Range/Units 12:12 16:20 16:23 RBC (3.80-5.40) m/uL Hgb (11.4-16.0) gm/dL Hct (34.0-46.0) % Plt Count (150-450) k/uL Lymphocytes # (Manual) (1.0-4.8) k/uL Nucleated RBCs (0-0) /100 WBC Sodium 126 L (137-145) mmol/L Chloride 88 L (98-107) mmol/L Carbon Dioxide 31 H (22-30) mmol/L BUN (7-17) mg/dL Creatinine (0.52-1.04) mg/dL POC Glucose (mg/dL) 298 H 225 H (75-99) mg/dL Magnesium (1.6-2.3) mg/dL 09/19/18 Range/Units 21:03 RBC (3.80-5.40) m/uL Hgb (11.4-16.0) gm/dL Hct (34.0-46.0) % Plt Count (150-450) k/uL Lymphocytes # (Manual) (1.0-4.8) k/uL Nucleated RBCs (0-0) /100 WBC Sodium (137-145) mmol/L Chloride (98-107) mmol/L Carbon Dioxide (22-30) mmol/L BUN (7-17) mg/dL Creatinine (0.52-1.04) mg/dL POC Glucose (mg/dL) 208 H (75-99) mg/dL Magnesium (1.6-2.3) mg/dL Microbiology - Last 24 Hours (Table) 09/18/18 14:40 Blood Culture - Preliminary Blood No Growth after 24 hours 09/16/18 16:53 Blood Culture Gram Stain - Final Blood Blood Culture - Final Staphylococcus aureus 09/12/18 14:50 Blood Culture - Final Blood No Growth after 144 hours Laboratory Results WBC 5.1 k/uL (3.8-10.6) 09/19/18 05:23 RBC 2.70 m/uL (3.80-5.40) L 09/19/18 05:23 Hgb 8.5 gm/dL (11.4-16.0) L 09/19/18 05:23 Hct 26.3 % (34.0-46.0) L 09/19/18 05:23 MCV 97.4 fL (80.0-100.0) 09/19/18 05:23 MCH 31.5 pg (25.0-35.0) 09/19/18 05:23 MCHC 32.4 g/dL (31.0-37.0) 09/19/18 05:23 RDW 13.9 % (11.5-15.5) 09/19/18 05:23 Plt Count 106 k/uL (150-450) L 09/19/18 05:23 Neutrophils % 92 % 09/17/18 05:15 Neutrophils % (Manual) 77 % 09/19/18 05:23 Band Neutrophils % 7 % 09/18/18 06:00 Lymphocytes % 2 % 09/17/18 05:15 Lymphocytes % (Manual) 9 % 09/19/18 05:23 Monocytes % 4 % 09/17/18 05:15 Monocytes % (Manual) 13 % 09/19/18 05:23 Eosinophils % 1 % 09/17/18 05:15 Eosinophils % (Manual) 2 % 09/19/18 05:23 Basophils % 0 % 09/17/18 05:15 Neutrophils # 9.4 k/uL (1.3-7.7) H 09/17/18 05:15 Neutrophils # (Manual) 3.93 k/uL (1.3-7.7) 09/19/18 05:23 Lymphocytes # 0.2 k/uL (1.0-4.8) L 09/17/18 05:15 Lymphocytes # (Manual) 0.46 k/uL (1.0-4.8) L 09/19/18 05:23 Monocytes # 0.4 k/uL (0-1.0) 09/17/18 05:15 Monocytes # (Manual) 0.66 k/uL (0-1.0) 09/19/18 05:23 Eosinophils # 0.1 k/uL (0-0.7) 09/17/18 05:15 Eosinophils # (Manual) 0.10 k/uL (0-0.7) 09/19/18 05:23 Basophils # 0.0 k/uL (0-0.2) 09/17/18 05:15 Nucleated RBCs 1 /100 WBC (0-0) H 09/19/18 05:23 Manual Slide Review Performed 09/19/18 05:23 Macrocytosis Slight 09/17/18 05:15 PT 13.1 sec (9.0-12.0) H 09/12/18 14:50 INR 1.3 (<1.2) H 09/12/18 14:50 APTT 32.3 sec (22.0-30.0) H 09/14/18 00:12 Sample Site RRAD 09/16/18 17:12 ABG pH 7.47 (7.35-7.45) H 09/16/18 17:12 ABG pCO2 43 mmHg (35-45) 09/16/18 17:12 ABG pO2 68 mmHg (83-108) L 09/16/18 17:12 ABG HCO3 31 mmol/L (21-25) H 09/16/18 17:12 ABG Total CO2 33 mmol/L (19-24) H 09/16/18 17:12 ABG O2 Saturation 94.7 % (94-97) 09/16/18 17:12 ABG Base Excess 7.6 mmol/L 09/16/18 17:12 Yannick Test Yes 09/16/18 17:12 FiO2 36 % 09/16/18 17:12 Sodium 126 mmol/L (137-145) L 09/19/18 16:20 Potassium 4.5 mmol/L (3.5-5.1) 09/19/18 16:20 Chloride 88 mmol/L (98-107) L 09/19/18 16:20 Carbon Dioxide 31 mmol/L (22-30) H 09/19/18 16:20 Anion Gap 7 mmol/L 09/19/18 16:20 BUN 40 mg/dL (7-17) H 09/19/18 05:23 Creatinine 0.51 mg/dL (0.52-1.04) L 09/19/18 05:23 Est GFR (CKD-EPI)AfAm >90 (>60 ml/min/1.73 sqM) 09/19/18 05:23 Est GFR (CKD-EPI)NonAf >90 (>60 ml/min/1.73 sqM) 09/19/18 05:23 Glucose 86 mg/dL (74-99) 09/19/18 05:23 POC Glucose (mg/dL) 208 mg/dL (75-99) H 09/19/18 21:03 POC Glu [employer] ID Krissy Giron 09/19/18 21:[address] Glu mg/dL 154 09/13/18 06:21 Hemoglobin A1c 7.0 % (4.0-6.0) H 09/13/18 06:21 Osmolality 242 mosm/kg (280-301) L* 09/13/18 06:21 Plasma Lactic Acid Nam 1.2 mmol/L (0.7-2.0) 09/16/18 16:54 Uric Acid 3.0 mg/dL (3.7-7.4) L 09/14/18 21:03 Calcium 8.4 mg/dL (8.4-10.2) 09/19/18 05:23 Phosphorus 2.6 mg/dL (2.5-4.5) 09/19/18 05:23 Magnesium 1.9 mg/dL (1.6-2.3) 09/19/18 16:20 Total Bilirubin 1.1 mg/dL (0.2-1.3) 09/13/18 06:21 AST 37 U/L (14-36) H 09/13/18 06:21 ALT 15 U/L (9-52) 09/13/18 06:21 Alkaline Phosphatase 81 U/L (38-126) 09/13/18 06:21 Total Creatine Kinase 64 U/L (30-135) 09/12/18 14:50 CK-MB (CK-2) 1.3 ng/mL (0.0-2.4) 09/12/18 14:50 CK-MB (CK-2) Rel Index 2.0 09/12/18 14:50 Troponin I <0.012 ng/mL (0.000-0.034) 09/12/18 14:50 Total Protein 5.7 g/dL (6.3-8.2) L 09/13/18 06:21 Albumin 3.0 g/dL (3.5-5.0) L 09/13/18 06:21 TSH 1.720 mIU/L (0.465-4.680) 09/13/18 06:21 PTH Intact 25.4 pg/mL (14.0-72.0) 09/14/18 21:03 Urine Osmolality 299 mosm/kg (50-1400) 09/13/18 15:54 Ur Random Sodium 49 mmol/L 09/13/18 15:54 Microbiology 09/18/18 14:40 Blood Blood Culture - Preliminary No Growth after 24 hours 09/16/18 16:53 Blood Blood Culture Gram Stain - Final 09/16/18 16:53 Blood Blood Culture - Final Staphylococcus aureus 09/12/18 14:50 Blood Blood Culture - Final No Growth after 144 hours 09/16/18 17:30 Urine,Catheterized Urine Culture - Final 09/16/18 16:53 Blood Blood Culture - Final Assessment and Plan (1) Gross hematuria Current Visit: Yes Status: Acute Code(s): R31.0 - GROSS HEMATURIA SNOMED Code(s): 399877756 (2) Traumatic ulcer of right lower leg with fat layer exposed Current Visit: No Status: Acute Code(s): L97.912 - NON-PRS CHR ULC UNSP PRT OF R LOW LEG W FAT LAYER EXPOSED SNOMED Code(s): 60994466 (3) Hyponatremia Current Visit: Yes Status: Acute Code(s): E87.1 - HYPO-OSMOLALITY AND HYPONATREMIA SNOMED Code(s): 74001255 (4) Altered mental status Narrative/Plan: 73-year-old woman presents to Hospital from the extended care facility with altered mental status thought evidence of significant hyponatremia. She's been seen by nephrology receiving hypertonic saline and is having some improvement of her hyponatremia. She however is now developed a fever with concerns to pneumonia given her severe underlying pulmonary disease or from the urinary system given the difficulty with the gross hematuria. She has multiple antibiotic ALLERGIES and vancomycin and Azactam will be utilized this in her prior cultures she's had evidence of enterococcus, as well as E. coli that are susceptible to current antibiotic choice. It is noted she has multiple antibiotic ALLERGIES that does give some challenged treatment. Cultures will determine course of antibiotic therapy at discharge. She does not have any type of permanent IV access at this time We will utilize a bordered foam dressing for the injury to the right buttocks area. The prior extensive lesion to the right lower extremity appears to be healed at this time. Skin moisturization is helpful. 09/19/2018 patient has had some biochemical improvement in her sodium is improved, but remains with some confusion. A blood culture is evidence of the MSSA but she has the multiple ALLERGIES including cephalosporins and is being treated with vancomycin therapy. Renal function is stable and constantly vancomycin will be continued. Unclear if the urine is the source, she does have the amina hematuria but urine culture has been negative. Spontaneous MSSA bacteremia of concern or related to prior skin lesions. Regardless she does have evidence of a negative blood culture at this time and will need to move toward IV access and a course of outpatient or ECF based intravenous antibiotic therapy to complete her course of therapy. No evidence 70 gram-negative infection and the Azactam can be discontinued. Current Visit: Yes Status: Acute Code(s): R41.82 - ALTERED MENTAL STATUS, UNSPECIFIED SNOMED Code(s): 622114297
[2018-09-19] MEDS ORDERED: QUEtiapine 25 MG TAB PO SCH (22:00)
[2018-09-20] MEDS: IPRATROPIUM-ALBUTEROL 3 ML NEB INHALATION PRN ×4 (00:06→15:12)
[2018-09-20] MEDS: INSULIN ASPART 100 UNIT/ML 1 ML 10 ML VIAL SQ SCH ×5 (02:21→20:59)
[2018-09-20 02:22] LABS: Glucose,Whole Blood 138 mg/dL (75-99)
[2018-09-20] MEDS: LEVOTHYROXINE 137 MCG TAB PO SCH (06:22)
[2018-09-20] MEDS: PANTOPRAZOLE 40 MG TABLET PO SCH (06:22)
[2018-09-20 06:38] LABS: Glucose,Whole Blood 88 mg/dL (75-99)
[2018-09-20] MEDS: DEXTROSE 50%-WATER 50 ML SYRINGE IVP ONE ×2 (06:40→06:43)
[2018-09-20] MEDS ORDERED: VANCOMYCIN TROUGH DUE 1 EACH MISC MISCELLANE ONE (07:00)
[2018-09-20] MEDS: TERIPARATIDE 20 MCG SQ SCH (07:53)
[2018-09-20] MEDS: METOPROLOL TARTRATE 25 MG TAB PO SCH ×2 (07:56→20:59)
[2018-09-20] MEDS: PRIMIDONE 50 MG TAB PO SCH (07:56)
[2018-09-20] MEDS: FUROSEMIDE 10 MG/ML 4 ML VIAL IV SCH ×2 (07:56→20:59)
[2018-09-20] MEDS: CARBIDOPA-LEVODOPA 25-100 MG 1 EACH TAB PO SCH ×3 (07:56→21:00)
[2018-09-20] MEDS: amLODIPine 5 MG TAB PO SCH (07:56)
[2018-09-20] MEDS: AMIODARONE 200 MG TAB PO SCH (07:56)
[2018-09-20] MEDS: SYMBICORT 160-4.5 MCG INHALER INHALATION SCH ×2 (07:58→19:42)
[2018-09-20] MEDS: AMMONIUM LACTATE 12% LOTION 225 GM BTL TOPICAL SCH (08:03)
[2018-09-20] MEDS: VANCOMYCIN 1,250 MG in SODIUM CHLORIDE 0.9% 250 ML IVPB SCH (08:05)
[2018-09-20 08:06] LABS: Glucose,Whole Blood 159 mg/dL (75-99)
[2018-09-20 09:26] LABS: Anion Gap 5 mmol/L; Blood Urea Nitrogen 46 mg/dL (7-17); Calcium 8.3 mg/dL (8.4-10.2); Carbon Dioxide 28 mmol/L (22-30); Chloride 94 mmol/L (98-107); Glucose 144 mg/dL (74-99); Magnesium 1.5 mg/dL (1.6-2.3); Potassium 4.5 mmol/L (3.5-5.1); Sodium 127 mmol/L (137-145)
[2018-09-20 10:12] LABS: Glucose,Whole Blood 159 mg/dL (75-99)
--- NOTE | 2018-09-20 10:29 | CT ---
EXAMINATION TYPE: CODE STROKE: CT brain wo contr DATE OF EXAM: 09/20/2018 COMPARISON: 09/16/2018 INDICATION: code stroke DLP: 837.6 mGycm, Automated exposure control for dose reduction was used. CONTRAST: None CT of the brain is performed utilizing 3 mm thick sections through the posterior fossa and 3 mm thick sections through the remaining calvarium. Study is performed within 24 hours of arrival to the hosp ital. No abnormal hyperdensity is present to suggest an acute intracranial hemorrhage. No mass lesion is evident. There may be a vascular calcification in the left parietal sulcus. This wa s present previously. No acute infarcts are evident. Periventricular white matter hypodensity is present, likely on the bas is of white matter ischemic change. Ventricles and sulci are appropriate for the patient age. There is an air-fluid level within the right sphenoid sinus. Correlate for acute sinusitis. Mastoid a ir cells and remaining paranasal sinuses are clear. IMPRESSIONS: 1. Periventricular white matter ischemic type changes appear chronic. 2. Clinical correlation recommended for right sphenoid sinusitis.
[2018-09-20] MEDS ORDERED: TOLVAPTAN 15 MG 1/2 TABLET PO ONE (10:44)
--- NOTE | 2018-09-20 11:07 | CT ---
EXAMINATION TYPE: CODE STROKE: CTA head neck DATE OF EXAM: 09/20/2018 HISTORY: code stroke COMPARISON: None CT DLP: 252.5 mGycm. Automated Exposure Control for Dose Reduction was Utilized. TECHNIQUE: CTA scan of the neck is performed with IV Contrast, patient injected with 65 mL of Isovue 370, axial images are obtained, coronal and sagittal reformatted images are reviewed. Three-D recons tructed images are created on an independent workstation and reviewed. FINDINGS: Carotid/Vascular Structures: Some atheromatous plaquing with calcification is at the right internal c arotid artery origin. Mild atheromatous plaquing is at the left internal carotid artery origin. Plaqu ing at the origin of the right internal carotid artery suggests a severe stenosis estimated at greate r than 70%. Atheromatous plaquing is present at the left internal carotid artery origin suggesting se marcella stenosis of greater than 70%. This appears greater than on the contralateral left side. [place]: CT of the [place] appears unremarkable. Internal carotid arteries bifurcat e into A1 and M1 segments. The A2 segments are normal. Anterior communicating artery is patent. Midd[place] e cerebral artery branches appear normal. Vertebral basilar system appears within normal limits. Righ t posterior communicating artery may be present. Other: Small bilateral pleural effusions are present. Some adjacent compressive atelectasis at the le ft apex. There is a three-vessel arch. Left jugular vein is dominant. IMPRESSION: 1. Bilateral atheromatous plaquing at the carotid bifurcations contributing to stenosis greater than 70%. This appears greater on the right side than the left. 2. [place] appears within normal limits.
[2018-09-20 11:15] LABS: Basophils % (A) 1 %; Eosinophils # (A) 0.2 k/uL (0-0.7); Eosinophils % (A) 4 %; HCT 24.8 % (34.0-46.0); HGB 8.2 gm/dL (11.4-16.0); Lymphocytes # (A) 0.5 k/uL (1.0-4.8); Lymphocytes % (A) 13 %; MCH 32.7 pg (25.0-35.0); MCV 98.9 fL (80.0-100.0); Mean Platelet Volume 8.5; Monocytes # (A) 0.3 k/uL (0-1.0); Monocytes % (A) 8 %; Neutrophils # (A) 2.5 k/uL (1.3-7.7); Neutrophils % (A) 70 %; RBC 2.51 m/uL (3.80-5.40); RDW 14.3 % (11.5-15.5); WBC 3.6 k/uL (3.8-10.6)
[2018-09-20 11:29] LABS: Glucose,Whole Blood 205 mg/dL (75-99)
[2018-09-20] MEDS: MULTIVITAMINS, THERA 1 EACH TAB PO SCH (11:29)
[2018-09-20] MEDS: THIAMINE 100 MG TAB PO SCH (11:29)
[2018-09-20] MEDS: FERROUS SULFATE 325 MG TAB PO SCH (11:29)
[2018-09-20] MEDS: VIT A,C & E-LUTEIN-MINERALS 1 EACH TAB PO SCH (11:29)
[2018-09-20 12:53] LABS: Platelet Count 86 k/uL (150-450)
--- NOTE | 2018-09-20 14:39 | PN ---
PROGRESS NOTE Patient is seen for followup for hyponatremia. Patient is maintained on IV Lasix. She did get 1 dose of sodium chloride tab yesterday. Her sodium was up :27 and was started on tolvaptan today. Currently, patient is lying in bed. She is maintained on BiPAP. Patient did not open her eyes. However, upon discussion with nursing staff, it appears that she has been communicating on and off. PHYSICAL EXAMINATION: This morning blood pressure was 117/49, heart rate of 65 per minute. She is afebrile. Examination of the heart, S1, S2. Examination of the lungs, bilateral breath sounds are heard. Abdomen is soft, nontender. Examination of the lower extremities shows no evidence of edema. [employer] exam cannot be performed. LABS: Show sodium of 127, potassium 4.5, BUN 46, magnesium 1.5. ASSESSMENT: 1. 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 I will give a dose of tolvaptan today. Continue with the IV Lasix for now. 2. Hypertension, maintained on Norvasc, currently controlled. No episodes of hypotension. 3. History of atrial fibrillation with controlled ventricular response, traumatic hematuria secondary to Smith catheter. Currently resolved. PLAN: 15 mg of tolvaptan will be given today and repeat the serum sodium in a.m. MMODL / IJN: [id number] /
[2018-09-20] MEDS: guaiFENesin-Coden 100-10MG/5ML 10 ML CUP PO SCH (14:52)
[2018-09-20] MEDS: guaiFENesin-Coden 100-10MG/5ML 10 ML CUP PO PRN ×2 (14:56→21:48)
--- NOTE | 2018-09-20 15:22 | P.PN ---
Subjective Progress Note Date: 09/20/18 73-year-old female with multiple medical illnesses including chronic persistent asthma, oxygen dependent lung disease, Parkinson's, multiple strokes and recurrent hyponatremia presents to Hospital from the extended care facility with increasing weakness and altered mental status. Is not evidence of significant hyponatremia that has been seen by nephrology and has been treated with some hypertonic saline to improve her hyponatremia. The patient is now developed a fever and had worsening mental status and was transferred to the intensive care unit. With a fever the infectious diseases consultation was requested. The patient's is present. Agrees that the wound to the right leg is definitely doing better. She however is developed significant hematuria after Smith catheter was placed. She's been seen by urology without need for surgical intervention at this time. Request for antibiotic therapy. patient status is improving she's moving out of the intensive care unit to the medical surgical unit. Hematuria continues and has been again seen by urological surgery with no plans for intervention at this time. 09/20/2018 the patient continues to have poor mental status is just arousable. Skin hematuria still noted in the Smith catheter. She does seem comfortable. He has been seen by pulmonology they're concerned about her neurological status is being transferred back to the telemetry floor. Objective - Vital Signs Vital signs: Vital Signs Temp 97.6 F 09/20/18 07:20 Pulse 66 09/20/18 15:12 Resp 18 09/20/18 15:12 BP 117/49 09/20/18 10:04 Pulse Ox 96 09/20/18 10:04 Intake & Output 09/19/18 09/20/18 09/20/18 18:59 06:59 18:59 Intake Total 460 0 Output Total 490 700 Balance -30 -700 Weight 63.5 kg Intake: IV 130 0.9 KVO 80 Aztreonam 1 gm In Sodium 50 Chloride 0.9% 50 ml @ 100 mls/hr IVPB Q8HR [facility] Rx# :[id number] Intake, IV Titration 300 Amount Magnesium Sulfate-D5w Pmx 300 1 gm In Dextrose/Water 1 100ml.bag @ 100 mls/hr IVPB Q1H [facility] Rx#: [id number] Oral 30 0 Output: Urine 490 700 Straight 700 Other: Voiding Method Indwelling Catheter Indwelling Catheter Indwelling Catheter - Exam 73-year-old female confused, opens eyes HEENT: Anicteric conjunctiva are pink and moist nasal mucosa grossly intact without significant lesions, there is no thrush. Neck: The neck is supple without significant lymphadenopathy or thyromegaly. Lungs: Good bilateral air entry without significant crackles or wheezing. There is no significant bronchial sounds. There is no egophony or dullness. Heart: Regular rate and rhythm with an audible S1-S2, no S3 no S4. There is no significant murmur click or rub, PMI was nondisplaced. Abdomen: Positive bowel sounds soft and nontender without palpable masses or organomegaly. There was no guarding or rebound. Extremities: The upper extremities have excellent pulses they are symmetric, no significant petechiae or telangiectasia. No splinter hemorrhages were noted. The lower extremities are free from significant edema. The peripheral pulses were 2+ and symmetric. Neuro: Arousable and moves extremities spontaneously Skin evidence of the healing traumatic injury to the right lower extremity. Has a small injury to the right lateral buttocks with some bloody drainage - Labs CBC & Chem 7: 09/20/18 10:54 09/20/18 07:40 Labs: Abnormal Lab Results - Last 24 Hours (Table) 09/19/18 09/19/18 09/19/18 Range/Units 16:20 16:23 21:03 WBC (3.8-10.6) k/uL RBC (3.80-5.40) m/uL Hgb (11.4-16.0) gm/dL Hct (34.0-46.0) % Plt Count (150-450) k/uL Lymphocytes # (1.0-4.8) k/uL Sodium 126 L (137-145) mmol/L Chloride 88 L (98-107) mmol/L Carbon Dioxide 31 H (22-30) mmol/L BUN (7-17) mg/dL Glucose (74-99) mg/dL POC Glucose (mg/dL) 225 H 208 H (75-99) mg/dL Calcium (8.4-10.2) mg/dL Magnesium (1.6-2.3) mg/dL 09/20/18 09/20/18 09/20/18 Range/Units 02:11 07:40 07:57 WBC (3.8-10.6) k/uL RBC (3.80-5.40) m/uL Hgb (11.4-16.0) gm/dL Hct (34.0-46.0) % Plt Count (150-450) k/uL Lymphocytes # (1.0-4.8) k/uL Sodium 127 L (137-145) mmol/L Chloride 94 L (98-107) mmol/L Carbon Dioxide (22-30) mmol/L BUN 46 H (7-17) mg/dL Glucose 144 H (74-99) mg/dL POC Glucose (mg/dL) 138 H 159 H (75-99) mg/dL Calcium 8.3 L (8.4-10.2) mg/dL Magnesium 1.5 L (1.6-2.3) mg/dL 09/20/18 09/20/18 09/20/18 Range/Units 10:01 10:54 11:28 WBC 3.6 L (3.8-10.6) k/uL RBC 2.51 L (3.80-5.40) m/uL Hgb 8.2 L (11.4-16.0) gm/dL Hct 24.8 L (34.0-46.0) % Plt Count 86 L (150-450) k/uL Lymphocytes # 0.5 L (1.0-4.8) k/uL Sodium (137-145) mmol/L Chloride (98-107) mmol/L Carbon Dioxide (22-30) mmol/L BUN (7-17) mg/dL Glucose (74-99) mg/dL POC Glucose (mg/dL) 159 H 205 H (75-99) mg/dL Calcium (8.4-10.2) mg/dL Magnesium (1.6-2.3) mg/dL Microbiology - Last 24 Hours (Table) 09/18/18 14:40 Blood Culture - Preliminary Blood No Growth after 24 hours 09/16/18 16:53 Blood Culture Gram Stain - Final Blood Blood Culture - Final Staphylococcus aureus Laboratory Results WBC 3.6 k/uL (3.8-10.6) L 09/20/18 10:54 RBC 2.51 m/uL (3.80-5.40) L 09/20/18 10:54 Hgb 8.2 gm/dL (11.4-16.0) L 09/20/18 10:54 Hct 24.8 % (34.0-46.0) L 09/20/18 10:54 MCV 98.9 fL (80.0-100.0) 09/20/18 10:54 MCH 32.7 pg (25.0-35.0) 09/20/18 10:54 MCHC 33.0 g/dL (31.0-37.0) 09/20/18 10:54 RDW 14.3 % (11.5-15.5) 09/20/18 10:54 Plt Count 86 k/uL (150-450) L 09/20/18 10:54 Neutrophils % 70 % 09/20/18 10:54 Neutrophils % (Manual) 77 % 09/19/18 05:23 Band Neutrophils % 7 % 09/18/18 06:00 Lymphocytes % 13 % 09/20/18 10:54 Lymphocytes % (Manual) 9 % 09/19/18 05:23 Monocytes % 8 % 09/20/18 10:54 Monocytes % (Manual) 13 % 09/19/18 05:23 Eosinophils % 4 % 09/20/18 10:54 Eosinophils % (Manual) 2 % 09/19/18 05:23 Basophils % 1 % 09/20/18 10:54 Neutrophils # 2.5 k/uL (1.3-7.7) 09/20/18 10:54 Neutrophils # (Manual) 3.93 k/uL (1.3-7.7) 09/19/18 05:23 Lymphocytes # 0.5 k/uL (1.0-4.8) L 09/20/18 10:54 Lymphocytes # (Manual) 0.46 k/uL (1.0-4.8) L 09/19/18 05:23 Monocytes # 0.3 k/uL (0-1.0) 09/20/18 10:54 Monocytes # (Manual) 0.66 k/uL (0-1.0) 09/19/18 05:23 Eosinophils # 0.2 k/uL (0-0.7) 09/20/18 10:54 Eosinophils # (Manual) 0.10 k/uL (0-0.7) 09/19/18 05:23 Basophils # 0.0 k/uL (0-0.2) 09/20/18 10:54 Nucleated RBCs 1 /100 WBC (0-0) H 09/19/18 05:23 Manual Slide Review Performed 09/20/18 10:54 Macrocytosis Slight 09/17/18 05:15 PT 13.1 sec (9.0-12.0) H 09/12/18 14:50 INR 1.3 (<1.2) H 09/12/18 14:50 APTT 32.3 sec (22.0-30.0) H 09/14/18 00:12 Sample Site RRAD 09/16/18 17:12 ABG pH 7.47 (7.35-7.45) H 09/16/18 17:12 ABG pCO2 43 mmHg (35-45) 09/16/18 17:12 ABG pO2 68 mmHg (83-108) L 09/16/18 17:12 ABG HCO3 31 mmol/L (21-25) H 09/16/18 17:12 ABG Total CO2 33 mmol/L (19-24) H 09/16/18 17:12 ABG O2 Saturation 94.7 % (94-97) 09/16/18 17:12 ABG Base Excess 7.6 mmol/L 09/16/18 17:12 Yannick Test Yes 09/16/18 17:12 FiO2 36 % 09/16/18 17:12 Sodium 127 mmol/L (137-145) L 09/20/18 07:40 Potassium 4.5 mmol/L (3.5-5.1) 09/20/18 07:40 Chloride 94 mmol/L (98-107) L 09/20/18 07:40 Carbon Dioxide 28 mmol/L (22-30) 09/20/18 07:40 Anion Gap 5 mmol/L 09/20/18 07:40 BUN 46 mg/dL (7-17) H 09/20/18 07:40 Creatinine 0.56 mg/dL (0.52-1.04) 09/20/18 07:40 Est GFR (CKD-EPI)AfAm >90 (>60 ml/min/1.73 sqM) 09/20/18 07:40 Est GFR (CKD-EPI)NonAf >90 (>60 ml/min/1.73 sqM) 09/20/18 07:40 Glucose 144 mg/dL (74-99) H 09/20/18 07:40 POC Glucose (mg/dL) 205 mg/dL (75-99) H 09/20/18 11:28 POC Glu [employer] ID [employer] 09/20/18 11:[address] Glu mg/dL 154 09/13/18 06:21 Hemoglobin A1c 7.0 % (4.0-6.0) H 09/13/18 06:21 Osmolality 242 mosm/kg (280-301) L* 09/13/18 06:21 Plasma Lactic Acid Nam 1.2 mmol/L (0.7-2.0) 09/16/18 16:54 Uric Acid 3.0 mg/dL (3.7-7.4) L 09/14/18 21:03 Calcium 8.3 mg/dL (8.4-10.2) L 09/20/18 07:40 Phosphorus 2.6 mg/dL (2.5-4.5) 09/19/18 05:23 Magnesium 1.5 mg/dL (1.6-2.3) L 09/20/18 07:40 Total Bilirubin 1.1 mg/dL (0.2-1.3) 09/13/18 06:21 AST 37 U/L (14-36) H 09/13/18 06:21 ALT 15 U/L (9-52) 09/13/18 06:21 Alkaline Phosphatase 81 U/L (38-126) 09/13/18 06:21 Total Creatine Kinase 64 U/L (30-135) 09/12/18 14:50 CK-MB (CK-2) 1.3 ng/mL (0.0-2.4) 09/12/18 14:50 CK-MB (CK-2) Rel Index 2.0 09/12/18 14:50 Troponin I <0.012 ng/mL (0.000-0.034) 09/12/18 14:50 Total Protein 5.7 g/dL (6.3-8.2) L 09/13/18 06:21 Albumin 3.0 g/dL (3.5-5.0) L 09/13/18 06:21 TSH 1.720 mIU/L (0.465-4.680) 09/13/18 06:21 PTH Intact 25.4 pg/mL (14.0-72.0) 09/14/18 21:03 Urine Osmolality 299 mosm/kg (50-1400) 09/13/18 15:54 Ur Random Sodium 49 mmol/L 09/13/18 15:54 Vancomycin Trough 25.7 ug/mL 09/20/18 07:40 Microbiology 09/18/18 14:40 Blood Blood Culture - Preliminary No Growth after 24 hours 09/16/18 16:53 Blood Blood Culture Gram Stain - Final 09/16/18 16:53 Blood Blood Culture - Final Staphylococcus aureus 09/12/18 14:50 Blood Blood Culture - Final No Growth after 144 hours 09/16/18 17:30 Urine,Catheterized Urine Culture - Final 09/16/18 16:53 Blood Blood Culture - Final Assessment and Plan (1) Gross hematuria Current Visit: Yes Status: Acute Code(s): R31.0 - GROSS HEMATURIA SNOMED Code(s): 759644839 (2) Traumatic ulcer of right lower leg with fat layer exposed Current Visit: No Status: Acute Code(s): L97.912 - NON-PRS CHR ULC UNSP PRT OF R LOW LEG W FAT LAYER EXPOSED SNOMED Code(s): 99604799 (3) Hyponatremia Current Visit: Yes Status: Acute Code(s): E87.1 - HYPO-OSMOLALITY AND HYPONATREMIA SNOMED Code(s): 71148453 (4) Altered mental status Narrative/Plan: 73-year-old woman presents to Hospital from the extended care facility with altered mental status thought evidence of significant hyponatremia. She's been seen by nephrology receiving hypertonic saline and is having some improvement of her hyponatremia. She however is now developed a fever with concerns to pneumonia given her severe underlying pulmonary disease or from the urinary system given the difficulty with the gross hematuria. She has multiple antibiotic ALLERGIES and vancomycin and Azactam will be utilized this in her prior cultures she's had evidence of enterococcus, as well as E. coli that are susceptible to current antibiotic choice. It is noted she has multiple antibiotic ALLERGIES that does give some challenged treatment. Cultures will determine course of antibiotic therapy at discharge. She does not have any type of permanent IV access at this time We will utilize a bordered foam dressing for the injury to the right buttocks area. The prior extensive lesion to the right lower extremity appears to be healed at this time. Skin moisturization is helpful. 09/19/2018 patient has had some biochemical improvement in her sodium is improved, but remains with some confusion. A blood culture is evidence of the MSSA but she has the multiple ALLERGIES including cephalosporins and is being treated with vancomycin therapy. Renal function is stable and constantly vancomycin will be continued. Unclear if the urine is the source, she does have the amina hematuria but urine culture has been negative. Spontaneous MSSA bacteremia of concern or related to prior skin lesions. Regardless she does have evidence of a negative blood culture at this time and will need to move toward IV access and a course of outpatient or ECF based intravenous antibiotic therapy to complete her course of therapy. No evidence of gram-negative infection and the Azactam can be discontinued. 09/20/2018 patient continues to have poor mental status and with ongoing confusion is moved back to telemetry for further monitoring. Her hyponatremia continues and is now developed relative leukopenia without absolute neutropenia. The Azactam has been discontinued with no evidence of gram- negative sepsis, only has evidence of the MSSA bacteremia being treated with vancomycin given her many ALLERGIES. When she is more stable IV access will be placed to complete her at least 4 week course of intravenous antibiotic therapy at discharge. The relative leukopenia is likely multifactorial and will be monitored, if worsens will consider further alteration of antibiotic therapy. Current Visit: Yes Status: Acute Code(s): R41.82 - ALTERED MENTAL STATUS, UNSPECIFIED SNOMED Code(s): 209282084
--- NOTE | 2018-09-20 15:24 | PN ---
PROGRESS NOTE DATE OF SERVICE: 09/20/2018 This is a 73-year-old female with history of diastolic CHF, and an acute exacerbation of her CHF. She also has a history of atrial fibrillation, diabetes mellitus, diabetic neuropathy, lower extremity wound, previous history of CVA, persistent moderate chronic bronchial asthma, hypertension, hypothyroidism, sarcoidosis, which is inactive as well as a history of Staph aureus bacteremia. The patient apparently had a bad night last night. She is very confused and disoriented. Apparently, she was given a number of things including some Lasix, some breathing treatments, BiPAP, Seroquel, Xanax, and she finally did settle down. Today, she seemed very lethargic and sleepy and had a hard time even opening up her eyes. It appeared to us that she might have a right facial droop. She had garbled speech. We called a code stroke on her. Anyway, the patient ended up getting a CT scan of the brain. The CT scan of the brain showed mostly chronic changes including periventricular white matter ischemic changes which appear chronic and some right sphenoid sinusitis. In addition, she had an angiography CT which showed bilateral atheromatous plaquing at the carotid bifurcations contributing to stenosis of greater than 70%. This is worse on the right than on the left side. The [place] was otherwise unremarkable. Anyway, she was transferred over to Room 471. Current vital signs include a temperature 97.6, heart rate 65, respiratory rate 22, blood pressure 117/49, mean 71, 2 L saturation 96%. Appears in no acute distress HEENT examination is grossly unremarkable. She does have a right facial droop and somewhat garbled speech. She has a hard time opening her eyes. Neck is supple. Full range of motion. Cardiovascular examination reveals regular rhythm and rate. Heart rate in mid 70s. S1, S2 normal. Lungs reveal relatively clear. Breath sounds equal. Abdomen is soft but obese. Extremities are intact. She does move all 4 extremities. Skin without rash. Neurologic examination is difficult to assess. As mentioned, she appears to be very lethargic and sleepy. Appears to have a right facial droop and has garbled speech. CT scan and angiography CT are noted. LABS: Reviewed. White count 3.6, hemoglobin 8.2, hematocrit 24.8, platelet count 86,000. The rest of the labs look okay. Sodium 127, potassium 4.5, chloride 94, CO2 is 28, anion gap 5, BUN 46, creatinine 0.56. Medications reviewed. Microbiology showing evidence of Staph aureus in the blood from September 16. ASSESSMENT: 1. Acute exacerbation of diastolic congestive heart failure with small to moderate left-sided pleural effusion. 2. Hypervolemic hyponatremia secondary to congestive heart failure. 3. Atrial fibrillation. 4. Rule out ischemic cerebrovascular accident. 5. Diabetes mellitus. 6. Diabetic neuropathy. 7. Lower extremity wound. 8. History of cerebrovascular accident in the past with chronic changes on CT scan. 9. Persistent chronic bronchial asthma, stable. 10.Hypertension. 11.Hypothyroidism. 12.History of quiescent sarcoidosis. 13.Hematuria. 14.Traumatic ulcer of the right lower extremity. 15.Staph aureus bacteremia. PLAN: A code stroke was called. The patient was transferred over to the other side of the hospital. A CT scan of the brain and a angiography CT were ordered. Additional recommendations and suggestions are forthcoming. She has significant carotid artery stenosis. She may have sustained a TIA. Additional recommendations and suggestions are forthcoming. Prognosis is guarded. Additional recommendations will be made. Vascular consult will probably be in order. MMODL / IJN: [id number] /
--- NOTE | 2018-09-20 15:32 | CDI ---
Documentation Clarification Form Date: 09/20/2018 3:23:38 PM From: Vida Billingsley Admit Date: 09/12/2018 4:26:00 PM Patient Name: Soledad Chou Visit Number: [id number] Discharge Date: ATTENTION: The Clinical Documentation Specialists (CDI) and [facility] Coding Staff appreciate your assistance in clarifying documentation. Please respond to the clarification below the line at the bottom and electronically sign. The CDI & [facility] Coding staff will review the response and follow-up if needed. Please note: Queries are made part of the Legal Health Record. If you have any questions, please contact the author of this message via ITS. Dr. Zahira Brasher: A diagnosis of anemia lacks specificity to accurately reflect your patients severity of condition and clarification is needed. History/Risk Factors: Atrial fibrillation, Asthma, CHF, COPD, DM, GERD, Hypertension, Hyperlipidemia, resident of [facility]. Per history: no history of anemia. Clinical indicators: Presented with low Na, diagnosed with Hyponatremia poss SIADH or secondary to CHF. Per the 09/18 progress note: "The patient has macrocytic anemia, exact etiology undetermined." Developed hematuria status post insertion of Smith Cath on 09/14. Hemoglobin: 11.8 - 10.0 - 8.2* Hematocrit: 35.0 - 30.8 - 24.8* Treatment: H/H, IV Apresoline, IV fluids, IV MagSulf, Albuterol INH, IV Lasix (1 /3), IV MagSulf (1/3), 3% saline for hyponatremia. IV Tylenol, IV Aztreonam for pos blood culture. In order to capture the severity of condition, please clarify the type of anemia and etiology if known: Acute blood loss anemia Acute on chronic blood loss anemia Chronic blood loss anemia Iron deficiency anemia Hemolytic anemia Anemia of chronic kidney disease Unable to determine Other, please specify (Last Revision: June 2017) MTDD
--- NOTE | 2018-09-20 18:15 | P.PN ---
Subjective Progress Note Date: 09/20/18 Progress note being dictated for Interval history: This is a 73-year-old female admitted with severe hyponatremia , possible SIADH, possible CHF exacerbation and multiple other medical issues. Maintained on gentle IV fluid hydration , sodium increased to 120.Evaluated by a nephrology, IV fluids discontinued, Lasix and fluid restriction initiated. Magnesium currently being replaced. Afebrile. Evaluated by both cardiology and pulmonary with recommendations noted. 09/14/18 sodium and decreased to 117 last night patient transferred to ICU for 3 % sodium IV infusion. Sodium currently 123. Diet Intake fair. Telemetry sinus bradycardy, heart rate 50s. 3% saline discontinued, maintained on 1200 ml fluid restrictions. Urine osmolality 299. Chest x-ray reporting left lower lobe infiltrate, small stable bilateral effusions, possible mild central venous congestion, right upper lobe granuloma. 09/15/18 developed hematuria after Smith catheter insertion. Urology consulted with recommendations pending. Fluid restrictions maintained. Sodium 124,3% IV saline resumed last night. Received a dose of IV Lasix earlier today. Requires encouragement with Diet intake. Chest x-ray stable. 09/16/2018 appears more short of breath today, chest x-ray reporting interstitial venous congestion, interstitial pneumonitis with bilateral pleural effusions and basilar infiltrate, changes of chronic granulomatous disease. C. difficile toxin Lasix IV push. Last night sodium dropped again, and 3% saline resumed. Currently sodium 127. Hematuria persists, and by urology with recommendations noted. 09/20/2018 transferred out of ICU yesterday to [facility]. Patient had increased anxiety, confusion with the transfer, required BiPAP, Xanax. Later received Seroquel. This morning, sleepy, questionable facial droop, and stroke called. Brain CT reporting chronic white matter ischemic changes, CTA reporting bilateral carotid stenosis greater than 70%, greater on the right with normal kashia of [place]. Vascular surgery consulted. Spoke with Dr. Graff Patient later drinking through a straw with no facial droop noticed. Garbled Speech varies with confusion, tiredness. Generalized equal weakness. Consumed a few bites at lunch, conversing with at bedside. Accu-Cheks 150s to 200s. Maintained on IV Lasix, received sodium chloride yesterday, Sodium 127.Tolvaptan initiated. Hematuria improving, hemoglobin currently 8.2. Denies chest pain, palpitations. Afebrile, repeat blood cultures in progress, preliminary negative. Unable to perform review of systems at this time given current clinical condition. Active Medications Acetaminophen (Tylenol Tab) 650 mg PO Q6HR PRN PRN Reason: Mild Pain or Fever > 100.5 Last Admin: 09/14/18 10:35 Dose: 650 mg Albuterol/Ipratropium (Duoneb 0.5 Mg-3 Mg/3 Ml Soln) 3 ml INHALATION RT-QID PRN PRN Reason: Shortness Of Breath Or Wheezing Last Admin: 09/20/18 15:12 Dose: 3 ml Albuterol/Ipratropium (Duoneb 0.5 Mg-3 Mg/3 Ml Soln) 3 ml INHALATION RT-Q2H PRN PRN Reason: Shortness Of Breath Or Wheezing Last Admin: 09/20/18 00:06 Dose: 3 ml Amiodarone HCl (Cordarone) 200 mg PO DAILY [facility] Last Admin: 09/20/18 07:56 Dose: 200 mg Amlodipine Besylate (Norvasc) 5 mg PO DAILY [facility] Last Admin: 09/20/18 07:56 Dose: 5 mg Atorvastatin Calcium (Lipitor) 10 mg PO HS@2100 [facility] Last Admin: 09/19/18 19:48 Dose: 10 mg Atorvastatin Calcium (Lipitor) 10 mg PO HS [facility] Bisacodyl (Dulcolax) 10 mg RECTAL DAILY PRN PRN Reason: Constipation Budesonide/Formoterol Fumarate (Symbicort 160-4.5 Mcg Inhaler) 2 puff INHALATION RT-BID [facility] Last Admin: 09/20/18 07:58 Dose: 2 puff Calcium Carbonate (Oscal 500+D) 1 each PO DAILY@1700 [facility] Last Admin: 09/19/18 17:33 Dose: 1 each Carbidopa/Levodopa (Sinemet 25-100) 1 each PO TID [facility] Last Admin: 09/20/18 07:56 Dose: 1 each Docusate Sodium (Colace) 100 mg PO BID PRN PRN Reason: Constipation Ergocalciferol (Vitamin D2) 50,000 unit PO ROSA [facility] Last Admin: 09/18/18 09:03 Dose: 50,000 unit Ferrous Sulfate (Feosol) 325 mg PO 1200 [facility] Last Admin: 09/20/18 11:29 Dose: 325 mg Folic Acid (Folic Acid) 1 mg PO DAILY@1700 [facility] Last Admin: 09/19/18 17:33 Dose: 1 mg Furosemide (Lasix) 40 mg IV Q12HR [facility] Last Admin: 09/20/18 07:56 Dose: 40 mg Guaifenesin/Codeine Phosphate (Robitussin Ac) 10 ml PO Q6H PRN PRN Reason: Cough Last Admin: 09/20/18 14:56 Dose: 10 ml Hydralazine HCl (Apresoline) 10 mg IVP Q6HR PRN PRN Reason: Blood Pressure - High Vancomycin HCl 1,250 mg/ (Sodium Chloride) 250 mls @ 125 mls/hr IVPB Q24H [facility] Insulin Aspart (Novolog) 0 unit SQ [id number] SCH; Protocol Last Admin: 09/20/18 11:41 Dose: 2 unit Insulin Detemir (Levemir) 7 unit SQ [facility] Last Admin: 09/19/18 21:25 Dose: 7 unit Lactic Acid (Lac-Hydrin 12%) 1 applic TOPICAL DAILY [facility] Last Admin: 09/20/18 08:03 Dose: 1 applic Levothyroxine Sodium (Synthroid) 137 mcg PO DAILY@0630 [facility] Last Admin: 09/20/18 06:22 Dose: 137 mcg Loratadine (Claritin) 10 mg PO [facility] Last Admin: 09/19/18 19:48 Dose: 10 mg Magnesium Hydroxide (Milk Of Magnesia) 1,200 mg PO DAILY PRN PRN Reason: Constipation Metoprolol Tartrate (Lopressor) 25 mg PO BID [facility] Last Admin: 09/20/18 07:56 Dose: 25 mg Miscellaneous Information (Magnesium Per Protocol) 1 each MISCELLANE DAILY PRN ; Protocol PRN Reason: Per Protocol Miscellaneous Information (Magnesium Per Protocol) 1 each MISCELLANE DAILY PRN ; Protocol PRN Reason: Per Protocol Multivitamins (Theragran) 1 each PO 1200 [facility] Last Admin: 09/20/18 11:29 Dose: 1 each Multivitamins/Minerals (Ivite) 1 each PO 1200 [facility] Last Admin: 09/20/18 11:29 Dose: 1 each Naloxone HCl (Narcan) 0.2 mg IV Q2M PRN PRN Reason: Opioid Reversal Patient's Own ( Teriparatide [Forteo ] 20 Mcg) 20 mcg SQ DAILY@0800 [facility] Last Admin: 09/20/18 07:53 Dose: Not Given Ondansetron HCl (Zofran) 4 mg IVP Q6HR PRN PRN Reason: Nausea And Vomiting Last Admin: 09/14/18 05:38 Dose: 4 mg Oxybutynin Chloride (Ditropan Xl) 10 mg PO HS@2100 [facility] Last Admin: 09/19/18 21:25 Dose: 10 mg Pantoprazole Sodium (Protonix) 40 mg PO DAILY@0600 [facility] Last Admin: 09/20/18 06:22 Dose: 40 mg Primidone (Mysoline) 50 mg PO DAILY [facility] Last Admin: 09/20/18 07:56 Dose: 50 mg Tetrahydrozoline HCl (Visine Eye Drops) 1 drops BOTH EYES TID PRN PRN Reason: Eye Irritation Last Admin: 09/15/18 20:26 Dose: 1 drops Thiamine HCl (Vitamin B-1) 100 mg PO 1200 [facility] Last Admin: 09/20/18 11:29 Dose: 100 mg Objective - Vital Signs Vital signs: Vital Signs Temp 97.5 F L 09/20/18 14:12 Pulse 68 09/20/18 15:22 Resp 18 09/20/18 15:22 BP 139/66 09/20/18 14:12 Pulse Ox 100 09/20/18 14:12 Intake & Output 09/19/18 09/20/18 09/20/18 18:59 06:59 18:59 Intake Total 460 0 Output Total 490 700 400 Balance -30 -700 -400 Weight 63.5 kg Intake: IV 130 0.9 KVO 80 Aztreonam 1 gm In Sodium 50 Chloride 0.9% 50 ml @ 100 mls/hr IVPB Q8HR [facility] Rx# :[id number] Intake, IV Titration 300 Amount Magnesium Sulfate-D5w Pmx 300 1 gm In Dextrose/Water 1 100ml.bag @ 100 mls/hr IVPB Q1H [facility] Rx#: [id number] Oral 30 0 Output: Urine 490 700 400 Straight 700 Other: Voiding Method Indwelling Catheter Indwelling Catheter Indwelling Catheter - Exam PHYSICAL EXAM: VITAL SIGNS: As above GENERAL: Alert and oriented 1, no acute distress, arousable, tired appearing HEENT: Conjunctivae normal. eyes normal. Oral conjunctiva moist. Currently not visualizing right facial droop, somewhat garbled speech NECK: No JVD. No thyroid enlargement. No LNs CARDIOVASCULAR: S1, S2 muffled. Regular, No murmur RESPIRATION: Respiratory effort increased Breath sounds diminished in the bases. ABDOMEN: Soft, nontender . No guarding. no masses palpable. Bowel sounds heard. : Smith catheter draining hematuria LEGS: No edema. no swelling NERVOUS SYSTEM: Cranial N 2-12 grossly normal. Moves all 4 limbs. Diffuse equal weakness. No focal deficits. Skin: no rash - Labs CBC & Chem 7: 09/20/18 10:54 09/20/18 07:40 Labs: Abnormal Lab Results - Last 24 Hours (Table) 09/19/18 09/19/18 09/20/18 Range/Units 16:20 21:03 02:11 WBC (3.8-10.6) k/uL RBC (3.80-5.40) m/uL Hgb (11.4-16.0) gm/dL Hct (34.0-46.0) % Plt Count (150-450) k/uL Lymphocytes # (1.0-4.8) k/uL Sodium 126 L (137-145) mmol/L Chloride 88 L (98-107) mmol/L Carbon Dioxide 31 H (22-30) mmol/L BUN (7-17) mg/dL Glucose (74-99) mg/dL POC Glucose (mg/dL) 208 H 138 H (75-99) mg/dL Calcium (8.4-10.2) mg/dL Magnesium (1.6-2.3) mg/dL 09/20/18 09/20/18 09/20/18 Range/Units 07:40 07:57 10:01 WBC (3.8-10.6) k/uL RBC (3.80-5.40) m/uL Hgb (11.4-16.0) gm/dL Hct (34.0-46.0) % Plt Count (150-450) k/uL Lymphocytes # (1.0-4.8) k/uL Sodium 127 L (137-145) mmol/L Chloride 94 L (98-107) mmol/L Carbon Dioxide (22-30) mmol/L BUN 46 H (7-17) mg/dL Glucose 144 H (74-99) mg/dL POC Glucose (mg/dL) 159 H 159 H (75-99) mg/dL Calcium 8.3 L (8.4-10.2) mg/dL Magnesium 1.5 L (1.6-2.3) mg/dL 09/20/18 09/20/18 Range/Units 10:54 11:28 WBC 3.6 L (3.8-10.6) k/uL RBC 2.51 L (3.80-5.40) m/uL Hgb 8.2 L (11.4-16.0) gm/dL Hct 24.8 L (34.0-46.0) % Plt Count 86 L (150-450) k/uL Lymphocytes # 0.5 L (1.0-4.8) k/uL Sodium (137-145) mmol/L Chloride (98-107) mmol/L Carbon Dioxide (22-30) mmol/L BUN (7-17) mg/dL Glucose (74-99) mg/dL POC Glucose (mg/dL) 205 H (75-99) mg/dL Calcium (8.4-10.2) mg/dL Magnesium (1.6-2.3) mg/dL Microbiology - Last 24 Hours (Table) 09/18/18 14:40 Blood Culture - Preliminary Blood No Growth after 24 hours 09/16/18 16:53 Blood Culture Gram Stain - Final Blood Blood Culture - Final Staphylococcus aureus Assessment and Plan Assessment: -Severe Hyponatremia, recurrent, multifactorial, secondary to SIADH, hypovolemic hyponatremia,CHF status post treatment with 3% saline -Acute on chronic CHF exacerbation, diastolic dysfunction with left-sided pleural effusion -Possible TIA, rule out ischemic cerebrovascular accident, MRI pending -Bilateral carotid stenosis greater than 70% -Atrial fibrillation, chronic -Hypomagnesemia -Diabetes mellitus type 2, on insulin pump -Gastroesophageal reflux disease -Right lower extremity chronic ulcer -Mild to moderate protein calorie malnutrition -Anxiety -Hematuria, post Smith catheter insertion, improving. -No code, no CPR, no intubation Plan: Continue on current medication regime ,salt tablets,monitoring and symptomatic treatment. Transfer to [facility] with remote telemetry. Vascular surgery consulted regarding bilateral carotid stenosis greater than 70%, greater on the right . Spoke with Dr. Graff, patient does not appear to be a surgical candidate given her multiple comorbidities, and he will be seeing patient, later. MRI ordered. No aspirin at this time given patient's hematuria. Updated family, spoke with Dr. Leela Chou. Per family's wishes patient has been changed to a no code, no CPR no intubation. Discussed neuro workup-results at present. She states that patient routinely has garbled speech that varies with her confusion, breathing, lack of sleep. Prognosis guarded given multiple complex medical issues. Follow closely with pulmonary, vascular surgery. Further recommendations to follow The impression and plan of care has been dictated as directed. : I performed a history and examination of this patient, discussed the same with the dictator. I agree with the dictator's note ,documented as a scribe. Any additional findings or plans will be noted. Time taken: 30 minutes
[2018-09-20 18:22] LABS: Glucose,Whole Blood 247 mg/dL (75-99)
[2018-09-20] MEDS: FOLIC ACID 1 MG TAB PO SCH (18:32)
[2018-09-20] MEDS: CALCIUM CARB-VIT D 500MG-200UN 1 EACH TAB PO SCH (18:32)
--- NOTE | 2018-09-20 20:21 | MR ---
EXAMINATION TYPE: MR brain wo con DATE OF EXAM: 09/20/2018 COMPARISON: 09/20/2018 10 and HISTORY: Rule out CVA, code stroke patient 10:00 AM 09/20/2018 TECHNIQUE: Standard departmental protocol. Multiplanar, multisequence images of the brain were acquir ed. Diffusion weighted imaging was performed. FINDINGS: The diffusion-weighted sequences are nearly entirely normal. However, there is a subtle 1.5 cm right thalamic zone of suspected diffusion restriction which could correlate with a clinical diag nosis of nonhemorrhagic infarction. The remainder of the intra-axial examination is negative. No mass mass effect or focal encephalomalac ia. Nonspecific bilateral centrum semiovale and [place] radiata T2 hyperintensity is noted. Extra-axial compartment is negative. Calvarium is negative. Mastoid sinus air cells, middle ear cavities, and paranasal sinuses are clear, with the exception of partial opacification of the sphenoid sinus to the right of midline. IMPRESSION: Suspect right thalamic nonhemorrhagic infarction; further catheterization can be obtained with short interval follow-up MRI assessment.
[2018-09-20 20:25] LABS: Glucose,Whole Blood 245 mg/dL (75-99)
[2018-09-20] MEDS: LORATADINE 10 MG TAB PO SCH (20:59)
[2018-09-20] MEDS: INSULIN DETEMIR 100 UNIT/ML 10 ML VIAL SQ SCH (20:59)
[2018-09-20] MEDS: ATORVASTATIN 10 MG TAB PO SCH ×2 (20:59)
[2018-09-20] MEDS: OXYBUTYNIN 10 MG TAB.ER.24 PO SCH (21:00)
[2018-09-20] MEDS ORDERED: IPRATROPIUM-ALBUTEROL 3 ML NEB ONE (23:40)
[2018-09-21 03:13] LABS: Glucose,Whole Blood 138 mg/dL (75-99)
--- NOTE | 2018-09-21 03:13 | CONS ---
DATE OF CONSULTATION: 09/20/2018 HISTORY: This is a 73-year-old white female, she was seen in consultation. The patient had a CT of the carotids which showed 70% stenosis bilateral, more on the right than on the left. The patient also had a CT of the brain which showed white matter ischemic changes, which is chronic. Patient also had MRI of the brain done today which showed a nonhemorrhagic infarct of the thalamus. MEDICAL HISTORY: Includes history of diabetes, history of congestive heart failure acute exacerbation, history of hyponatremia under care of Nephrology and hypomagnesemia. The patient had a right lower extremity chronic ulcer. Also patient has hematuria. The patient was seen in her room. The patient is very weak and lethargic. Neck is supple. Chest has crackles bilaterally. Abdomen is soft. Femoral pulses are present. Motor function upper and lower extremities present. No issue with her speech. No visual disturbance noted. PLAN: The patient is to DO NOT RESUSCITATE status. The patient discussed the options. We will talk to the family in a.m. The patient is high risk for surgical intervention. We will follow with you. MEG / NATALIEN: [id number] / CRISTÓBAL
[2018-09-21] MEDS ORDERED: INSULIN ASPART 100 UNIT/ML 1 ML 10 ML VIAL SQ ONE (03:15)
[2018-09-21] MEDS ORDERED: guaiFENesin-Coden 100-10MG/5ML 10 ML CUP ONE (03:15)
[2018-09-21] MEDS: PANTOPRAZOLE 40 MG TABLET PO SCH (06:05)
[2018-09-21 06:26] LABS: Glucose,Whole Blood 54 mg/dL (75-99)
[2018-09-21] MEDS: IPRATROPIUM-ALBUTEROL 3 ML NEB INHALATION PRN ×5 (06:29→21:23)
[2018-09-21 06:42] LABS: Glucose,Whole Blood 79 mg/dL (75-99)
[2018-09-21 07:29] LABS: Glucose,Whole Blood 91 mg/dL (75-99)
[2018-09-21] MEDS: SYMBICORT 160-4.5 MCG INHALER INHALATION SCH ×2 (07:38→21:24)
--- NOTE | 2018-09-21 08:55 | PN ---
PROGRESS NOTE This is a 73-year-old female patient has multiple medical problems, including emphysema, atrial fibrillation, hematuria. The patient had a CT of the carotid which showed 70% stenosis. The patient had a CT of the brain and also patient had an MRI which showed thalamic nonhemorrhagic infarct. The patient has no history of speech loss, memory loss, no motor function loss. The patient has a strong hand lead architect bilateral. No history of amaurosis fugax. Discussed with the patient and the . In case she needs any surgical intervention, they do not want any major surgical intervention at this point, the patient is asymptomatic and we will continue with medical management. If patient goes home, I will follow in the office in 2 weeks. MMODL / IJN: [id number] /
[2018-09-21 09:25] LABS: Calcium 8.8 mg/dL (8.4-10.2); Potassium 4.6 mmol/L (3.5-5.1)
[2018-09-21] MEDS: INSULIN ASPART 100 UNIT/ML 1 ML 10 ML VIAL SQ SCH ×4 (09:37→21:03)
[2018-09-21] MEDS ORDERED: TOLVAPTAN 15 MG 1/2 TABLET PO ONE (09:42)
[2018-09-21] MEDS: CARBIDOPA-LEVODOPA 25-100 MG 1 EACH TAB PO SCH ×3 (09:46→21:03)
[2018-09-21] MEDS: THIAMINE 100 MG TAB PO SCH (09:46)
[2018-09-21] MEDS: METOPROLOL TARTRATE 25 MG TAB PO SCH ×2 (09:46→20:13)
[2018-09-21] MEDS: amLODIPine 5 MG TAB PO SCH (09:46)
[2018-09-21] MEDS: AMIODARONE 200 MG TAB PO SCH (09:46)
[2018-09-21] MEDS: PRIMIDONE 50 MG TAB PO SCH (09:46)
[2018-09-21] MEDS: FERROUS SULFATE 325 MG TAB PO SCH (09:47)
[2018-09-21] MEDS: VIT A,C & E-LUTEIN-MINERALS 1 EACH TAB PO SCH (09:47)
[2018-09-21] MEDS: FUROSEMIDE 10 MG/ML 4 ML VIAL IV SCH ×2 (09:47→20:12)
[2018-09-21] MEDS: TERIPARATIDE 20 MCG SQ SCH (09:47)
[2018-09-21] MEDS: LEVOTHYROXINE 137 MCG TAB PO SCH (09:47)
[2018-09-21] MEDS: MULTIVITAMINS, THERA 1 EACH TAB PO SCH (09:47)
[2018-09-21] MEDS: VANCOMYCIN 1,250 MG in SODIUM CHLORIDE 0.9% 250 ML IVPB SCH (09:57)
[2018-09-21 11:40] LABS: Cholesterol 100 mg/dL (<200); HDL Cholesterol 43 mg/dL (40-60); LDL Cholesterol,Calculated 45 mg/dL (0-99); Triglycerides 62 mg/dL (<150)
[2018-09-21 12:08] LABS: Glucose,Whole Blood 211 mg/dL (75-99)
[2018-09-21] MEDS: ACETAMINOPHEN TAB 325 MG TAB PO PRN (13:00)
[2018-09-21] MEDS: AMMONIUM LACTATE 12% LOTION 225 GM BTL TOPICAL SCH (13:03)
--- NOTE | 2018-09-21 13:49 | PN ---
PROGRESS NOTE Patient is seen for followup for hyponatremia. Patient is currently maintained on Lasix. Her renal function is stable. She did get a dose of tolvaptan yesterday. Sodium is up to 128. I will repeat another dose today and continue with the IV Lasix for now. PHYSICAL EXAMINATION: Blood pressure was 130/71, heart rate 84 per minute. Patient is afebrile. Examination of the heart, S1, S2. Examination of the lungs, bilateral breath sounds are heard. Abdomen is soft, nontender. Examination of the lower extremities shows no significant edema. LABS: Show sodium 128, potassium 4.6, BUN 47, serum creatinine 0.89. ASSESSMENT: 1. Hyponatremia associated with SIADH and an element of hypervolemic hyponatremia, maintained on IV Lasix. I will repeat another dose of tolvaptan today. 2. Status post right thalamic ischemic infarct noted on MRI done yesterday. The patient was found to have carotid artery stenosis 70% bilaterally. She has been evaluated by Vascular Surgery and is not a candidate for surgery. 3. Staphylococcus aureus bacteremia, methicillin-susceptible Staphylococcus aureus. Repeat cultures until negative. PLAN: Continue with IV Lasix. Repeat tolvaptan, monitor vancomycin levels. MMODL / IJN: [id number] /
--- NOTE | 2018-09-21 15:55 | PN ---
PROGRESS NOTE DATE OF SERVICE: 09/21/2018 This is a 73-year-old female with a history of multiple medical problems, but most notably acute exacerbation of diastolic CHF. In addition, more recently she developed mental status changes, slurred speech and a right facial droop. A CT scan of the brain did not show anything acute. She did, however, have significant bilateral carotid artery stenosis of greater than 70% seen on CT angiography. The patient also has a history of hypervolemic hyponatremia, atrial fibrillation, diabetes mellitus, diabetic neuropathy and a multitude of other major medical problems. The patient is much more awake today. She is lying in bed. She may be discharged tomorrow or within the next day or so. She denies any particular complaints. Again, her mental status is dramatically improved. We did have Vascular Surgery see her about the possibility of either carotid endarterectomy or carotid stents. Dr. Graff will see her as an outpatient. Current vital signs include temperature 97.7, heart rate 72, respiratory rate 16, blood pressure 131/55, mean 80. Two-liter saturation 91%. Appears in no acute distress. HEENT examination is grossly unremarkable. Mucous membranes are moist. No oral lesions. NECK: Supple. Full range of motion. No adenopathy or thyromegaly. Neck veins are flat. Cardiovascular examination was regular rhythm and rate. Heart rate is about 75 beats per minute. S1, S2 normal. No murmur. LUNGS: A few scattered rhonchi. There are a few scattered crackles. No wheezes. Breath sounds are equal bilaterally but diminished throughout. Abdomen is obese. Bowel sounds are heard. Extremities are intact. Minimal edema. Skin reveals multiple areas of ecchymoses. Neurologic examination is brief but nonfocal. Her speech seems to be normal. The facial droop is improved. She is awake and alert. Labs are reviewed. Sodium 128, potassium 4.6, chloride 92, CO2 30. BUN and creatinine were 47 and 0.89. Rest of the labs look okay. No recent chest x-ray. Brain MRI done on September 20 suggests a right thalamic nonhemorrhagic infarct. ASSESSMENT: 1. Acute exacerbation of diastolic congestive heart failure with small to moderate left-sided pleural effusion, improved. 2. Hypoxemic respiratory failure. 3. Right nonhemorrhagic thalamic infarct seen on MRI scan. 4. Hypervolemic hyponatremia. 5. Chronic atrial fibrillation. 6. Diabetes mellitus with diabetic neuropathy. 7. Lower extremity wound. 8. History of previous cerebrovascular accident with chronic changes on CT scan. 9. Persistent chronic bronchial asthma, stable. 10.Essential hypertension. 11.Hypothyroidism. 12.Quiescent sarcoidosis. 13.Hematuria. 14.Traumatic ulcer of the right lower extremity. 15.Staphylococcus aureus bacteremia. PLAN: The patient may be discharged in the next day or so to [facility]. Additional recommendations and suggestions are forthcoming. Prognosis is guarded. Medications are reviewed. No additional recommendations are made. Will continue to follow. Labs are reviewed. MMODL / IJN: [id number] /
[2018-09-21] MEDS: guaiFENesin-Coden 100-10MG/5ML 10 ML CUP PO PRN (16:24)
[2018-09-21] MEDS: FOLIC ACID 1 MG TAB PO SCH (16:24)
[2018-09-21] MEDS: CALCIUM CARB-VIT D 500MG-200UN 1 EACH TAB PO SCH (16:24)
[2018-09-21 16:34] LABS: Glucose,Whole Blood 161 mg/dL (75-99)
[2018-09-21] MEDS: ATORVASTATIN 10 MG TAB PO SCH ×2 (20:12→20:14)
[2018-09-21] MEDS: LORATADINE 10 MG TAB PO SCH (20:13)
[2018-09-21] MEDS: OXYBUTYNIN 10 MG TAB.ER.24 PO SCH (20:14)
[2018-09-21 20:34] LABS: Glucose,Whole Blood 205 mg/dL (75-99)
[2018-09-21] MEDS: INSULIN DETEMIR 100 UNIT/ML 10 ML VIAL SQ SCH (21:03)
[2018-09-21] MEDS ORDERED: MELATONIN 3 MG TABLET PO ONE (21:45)
[2018-09-22] MEDS: guaiFENesin-Coden 100-10MG/5ML 10 ML CUP PO PRN ×2 (00:30→22:34)
[2018-09-22] MEDS: IPRATROPIUM-ALBUTEROL 3 ML NEB INHALATION PRN ×3 (01:48→12:21)
[2018-09-22 02:32] LABS: Glucose,Whole Blood 148 mg/dL (75-99)
[2018-09-22] MEDS: INSULIN ASPART 100 UNIT/ML 1 ML 10 ML VIAL SQ SCH ×5 (02:50→20:46)
[2018-09-22] MEDS: PANTOPRAZOLE 40 MG TABLET PO SCH (05:52)
[2018-09-22 07:34] LABS: Glucose,Whole Blood 73 mg/dL (75-99)
[2018-09-22] MEDS: AMIODARONE 200 MG TAB PO SCH (08:26)
[2018-09-22] MEDS: amLODIPine 5 MG TAB PO SCH (08:26)
[2018-09-22] MEDS: METOPROLOL TARTRATE 25 MG TAB PO SCH ×2 (08:26→20:47)
[2018-09-22] MEDS: CARBIDOPA-LEVODOPA 25-100 MG 1 EACH TAB PO SCH ×3 (08:26→20:47)
[2018-09-22] MEDS: PRIMIDONE 50 MG TAB PO SCH (08:26)
[2018-09-22] MEDS: LEVOTHYROXINE 137 MCG TAB PO SCH (08:27)
[2018-09-22] MEDS: AMMONIUM LACTATE 12% LOTION 225 GM BTL TOPICAL SCH (08:28)
[2018-09-22] MEDS: TERIPARATIDE 20 MCG SQ SCH (08:28)
[2018-09-22] MEDS: FUROSEMIDE 10 MG/ML 4 ML VIAL IV SCH ×2 (08:28→20:47)
[2018-09-22 08:42] LABS: Calcium 8.6 mg/dL (8.4-10.2); Potassium 4.6 mmol/L (3.5-5.1)
[2018-09-22] MEDS: SYMBICORT 160-4.5 MCG INHALER INHALATION SCH ×2 (08:53→20:21)
--- NOTE | 2018-09-22 09:55 | CDI ---
Documentation Clarification Form Date: 09/22/2018 9:27:59 AM From: Vida RIOS Billingsley, CCDS Admit Date: 09/12/2018 4:26:00 PM Patient Name: Soledad Chou Visit Number: [id number] Discharge Date: ATTENTION: The Clinical Documentation Specialists (CDI) and [facility] Coding Staff appreciate your assistance in clarifying documentation. Please respond to the clarification below the line at the bottom and electronically sign. The CDI & [facility] Coding staff will review the response and follow-up if needed. Please note: Queries are made part of the Legal Health Record. If you have any questions, please contact the author of this message via ITS. Dr. Mickey Enriquez: Hypoxemic respiratory failure is documented in the 09/21 pulmonary progress note. History/Risk Factors: Chronic Atrial fibrillation, O2 dependent chronic persistent asthma, Chronic Diastolic CHF, COPD, Sarcoidosis, DM II with neuropathy, GERD, hypertension, hyperlipidemia, CKD, resident of [facility]. Clinical Indicators: Presented to ER on 09/12 from [facility] with mild dyspnea at baseline, to be evaluated for hyponatremia. Per the 09/16 progress notes: the patient's respiratory effort increased with diminished breath sounds. Vital signs 09/16: T 99.9^, P 54-56* (weak), R 20 - 28^, BP 152.74 - 102/61, PO 96 2Lnc - 87 2Lnc 09/16 CXR: Correlate for interstitial venous congestion or interstitial pneumonitis with bilateral pleural effusion & basilar infiltrate. Chronic granulomatous disease. Treatment: O2 increased from 2Lnc to 4Lnc. IV Lasix, IV MagSulf, IV Vanco, IV Aztreonam, IV fluid 250 x1, Albuterol INH. In your professional opinion, can you please clarify the acuity of the following condition: Hypoxemic Respiratory Failure Acute Chronic Acute on Chronic Other Diagnosis, please specify Unable to determine (Last Revision: December 2017) Acute on chronic respiratory failure related to interstitial venous congestion or interstitial pneumonitis with ana. effusions and basilar infiltrate MTDD
[2018-09-22] MEDS: VANCOMYCIN 1,250 MG in SODIUM CHLORIDE 0.9% 250 ML IVPB SCH (10:15)
[2018-09-22] MEDS: THIAMINE 100 MG TAB PO SCH (12:26)
[2018-09-22] MEDS: VIT A,C & E-LUTEIN-MINERALS 1 EACH TAB PO SCH (12:26)
[2018-09-22] MEDS: MULTIVITAMINS, THERA 1 EACH TAB PO SCH (12:26)
[2018-09-22 12:39] LABS: Glucose,Whole Blood 146 mg/dL (75-99)
[2018-09-22] MEDS ORDERED: TOLVAPTAN 15 MG 1/2 TABLET PO ONE (12:49)
--- NOTE | 2018-09-22 13:37 | PN ---
PROGRESS NOTE The patient is seen for followup for hyponatremia, which is mainly associated SIADH and some degree of hypervolemia as well. Patient is currently maintained on IV Lasix. She has received 2 doses of tolvaptan at 15 mg for the last couple of days. I will repeat another dose today. Overall, patient states she is feeling better. PHYSICAL EXAMINATION: On examination, blood pressure is 124/61, heart rate is 57 per minute. Patient is afebrile. EXAMINATION OF THE HEART: S1, S2. EXAMINATION OF THE LUNGS: Bilateral breath sounds are heard. Abdomen is soft, nontender. Examination of lower extremities shows no significant edema. PRACTICE ADVISOR exam grossly intact. LABS: Labs show sodium 128, potassium 4.6, BUN 48, serum creatinine 0.97. ASSESSMENT: 1. Hyponatremia secondary to SIADH and an element of hypervolemic and hyponatremia as well. Continue with IV Lasix. Repeat tolvaptan today. 2. Status post right thalamic ischemic infarct noted on MRI with bilateral 70% stenosis in the carotid arteries. The patient has been evaluated by surgery and not a candidate for surgical intervention at this time. PLAN: Continue with IV Lasix. Repeat tolvaptan. Repeat labs in a.m. Maintain good oral protein intake. MMODL / IJN: [id number] /
[2018-09-22] MEDS: FERROUS SULFATE 325 MG TAB PO SCH (14:45)
[2018-09-22 17:15] LABS: Glucose,Whole Blood 119 mg/dL (75-99)
[2018-09-22] MEDS: FOLIC ACID 1 MG TAB PO SCH (17:34)
[2018-09-22] MEDS: CALCIUM CARB-VIT D 500MG-200UN 1 EACH TAB PO SCH (17:34)
[2018-09-22] MEDS: ASPIRIN 81 MG PO SCH (19:09)
[2018-09-22 20:36] VITALS: RESP 17
[2018-09-22] MEDS: INSULIN DETEMIR 100 UNIT/ML 10 ML VIAL SQ SCH (20:46)
[2018-09-22] MEDS: OXYBUTYNIN 10 MG TAB.ER.24 PO SCH (20:47)
[2018-09-22] MEDS: ATORVASTATIN 10 MG TAB PO SCH ×2 (20:47)
[2018-09-22] MEDS: LORATADINE 10 MG TAB PO SCH (20:47)
[2018-09-22 21:01] LABS: Glucose,Whole Blood 176 mg/dL (75-99)
--- NOTE | 2018-09-22 21:37 | P.PN ---
Progress Note - Text Progress Note Date: 09/22/18 The hematuria has resolved, as the Smith catheter was draining clear yellow urine earlier today. From my standpoint, the catheter may be removed when no longer needed. Mrs. Chou wishes to keep the catheter in place, as she is currently nonambulatory, but I explained to her that prolonged catheterization can result in a nosocomial UTI.
--- NOTE | 2018-09-22 22:57 | P.PN ---
Subjective Progress Note Date: 09/21/18 Progress note being dictated for Interval history: This is a 73-year-old female admitted with severe hyponatremia , possible SIADH, possible CHF exacerbation and multiple other medical issues. Maintained on gentle IV fluid hydration , sodium increased to 120.Evaluated by a nephrology, IV fluids discontinued, Lasix and fluid restriction initiated. Magnesium currently being replaced. Afebrile. Evaluated by both cardiology and pulmonary with recommendations noted. 09/14/18 sodium and decreased to 117 last night patient transferred to ICU for 3 % sodium IV infusion. Sodium currently 123. Diet Intake fair. Telemetry sinus bradycardy, heart rate 50s. 3% saline discontinued, maintained on 1200 ml fluid restrictions. Urine osmolality 299. Chest x-ray reporting left lower lobe infiltrate, small stable bilateral effusions, possible mild central venous congestion, right upper lobe granuloma. 09/15/18 developed hematuria after Smith catheter insertion. Urology consulted with recommendations pending. Fluid restrictions maintained. Sodium 124,3% IV saline resumed last night. Received a dose of IV Lasix earlier today. Requires encouragement with Diet intake. Chest x-ray stable. 09/16/2018 appears more short of breath today, chest x-ray reporting interstitial venous congestion, interstitial pneumonitis with bilateral pleural effusions and basilar infiltrate, changes of chronic granulomatous disease. C. difficile toxin Lasix IV push. Last night sodium dropped again, and 3% saline resumed. Currently sodium 127. Hematuria persists, and by urology with recommendations noted. 09/20/2018 transferred out of ICU yesterday to [facility]. Patient had increased anxiety, confusion with the transfer, required BiPAP, Xanax. Later received Seroquel. This morning, sleepy, questionable facial droop, and stroke called. Brain CT reporting chronic white matter ischemic changes, CTA reporting bilateral carotid stenosis greater than 70%, greater on the right with normal [place]. Vascular surgery consulted. Spoke with Dr. Graff Patient later drinking through a straw with no facial droop noticed. Garbled Speech varies with confusion, tiredness. Generalized equal weakness. Consumed a few bites at lunch, conversing with at bedside. Accu-Cheks 150s to 200s. Maintained on IV Lasix, received sodium chloride yesterday, Sodium 127.Tolvaptan initiated. Hematuria improving, hemoglobin currently 8.2. Denies chest pain, palpitations. Afebrile, repeat blood cultures in progress, preliminary negative. 09/21/2018 Much more alert today, asymptomatic. MRI completed, suggesting a right thalmic nonhemorrhagic infarction. Neuro workup discussed with family by internal medicine as well as vascular surgery. Family's wishes are no major surgical interventions. Patient is asymptomatic, speech clear, no facial droop , generalized equal weakness. Denies decreased sensation. The MRI findings do not coincide, do not explain yesterday's symptoms. Anticoagulation remains on hold, no aspirin as hematuria clearing. Blood sugars fluctuating. Diuresing well Lasix IV push with 24-hour I&O reflecting a negative fluid balance. Continues on Tolvaptan. Sodium 128. Renal function stable. IV antibiotics as per infectious disease. Objective - Vital Signs Vital signs: Vital Signs Temp 97.7 F 09/21/18 14:46 Pulse 61 09/21/18 16:38 Resp 16 09/21/18 16:38 BP 131/55 09/21/18 14:46 Pulse Ox 95 09/21/18 16:28 Intake & Output 09/21/18 09/21/18 09/22/18 06:59 18:59 06:59 Intake Total 240 Output Total 375 750 Balance -135 -750 Weight 61.5 kg Intake: Oral 240 Output: Urine 375 750 Other: Voiding Method Indwelling Catheter Indwelling Catheter # Bowel Movements 1 - Exam PHYSICAL EXAM: VITAL SIGNS: As above GENERAL: Sitting up in chair, conversing clearly, Alert and oriented 2, no acute distress HEENT: Conjunctivae normal. eyes normal. Oral conjunctiva moist. No facial droop NECK: No JVD. No thyroid enlargement. No LNs CARDIOVASCULAR: S1, S2 muffled. Regular, No murmur RESPIRATION: Respiratory effort unlabored.Breath sounds diminished in the bases. Occasional rhonchi with fine bibasilar crackles. ABDOMEN: Soft, nontender . No guarding. no masses palpable. Bowel sounds heard. : Smith catheter -hematuria clearing LEGS: No significant edema. no swelling NERVOUS SYSTEM: Cranial N 2-12 grossly normal. Moves all 4 limbs. Diffuse equal weakness. No focal deficits. Skin: no rash - Labs CBC & Chem 7: 09/20/18 10:54 09/22/18 07:52 Labs: Abnormal Lab Results - Last 24 Hours (Table) 09/21/18 09/21/18 09/21/18 Range/Units 01:34 06:13 08:24 Sodium 128 L (137-145) mmol/L Chloride 92 L (98-107) mmol/L BUN 47 H (7-17) mg/dL Glucose 105 H (74-99) mg/dL POC Glucose (mg/dL) 138 H 54 L (75-99) mg/dL 09/21/18 09/21/18 09/21/18 Range/Units 12:06 16:31 20:23 Sodium (137-145) mmol/L Chloride (98-107) mmol/L BUN (7-17) mg/dL Glucose (74-99) mg/dL POC Glucose (mg/dL) 211 H 161 H 205 H (75-99) mg/dL Microbiology - Last 24 Hours (Table) 09/18/18 14:40 Blood Culture - Preliminary Blood No Growth after 72 hours Assessment and Plan Assessment: -Severe Hyponatremia, recurrent, multifactorial, secondary to SIADH, hypovolemic hyponatremia,CHF status post treatment with 3% saline -Acute on chronic CHF exacerbation, diastolic dysfunction with left-sided pleural effusion -Possible TIA, rule out ischemic cerebrovascular accident, MRI completed, suggesting a right thalmic nonhemorrhagic infarction; The MRI findings do not coincide, do not explain the prior day's symptoms. -Bilateral carotid stenosis greater than 70%, follow up outpatient with vascular surgery. -Atrial fibrillation, chronic -Hypomagnesemia -Diabetes mellitus type 2, on insulin pump -Gastroesophageal reflux disease -Right lower extremity chronic ulcer -Mild to moderate protein calorie malnutrition -Anxiety -Hematuria, post Smith catheter insertion, improving. -No code, no CPR, no intubation Plan: Continue on current medication regime ,salt tablets,monitoring and symptomatic treatment. Diuretics and Tolvaptan as per nephrology. Close monitoring of renal function, vancomycin levels. Repeat blood cultures in progress. Antibiotics as per infectious disease. Significant clinical improvement. Discharge planning in progress for tomorrow to [facility]. Prognosis guarded given multiple complex medical issues. The impression and plan of care has been dictated as directed. : I performed a history and examination of this patient, discussed the same with the dictator. I agree with the dictator's note ,documented as a scribe. Any additional findings or plans will be noted. Time taken: 30 minutes
[2018-09-23 00:51] VITALS: TEMP 98.5
[2018-09-23] MEDS: INSULIN ASPART 100 UNIT/ML 1 ML 10 ML VIAL SQ SCH ×3 (02:13→12:01)
[2018-09-23 02:29] LABS: Glucose,Whole Blood 90 mg/dL (75-99)
[2018-09-23 03:34] LABS: Glucose,Whole Blood 71 mg/dL (75-99)
[2018-09-23] MEDS: IPRATROPIUM-ALBUTEROL 3 ML NEB INHALATION PRN ×3 (03:34→12:14)
[2018-09-23] MEDS: LEVOTHYROXINE 137 MCG TAB PO SCH (05:32)
[2018-09-23] MEDS: PANTOPRAZOLE 40 MG TABLET PO SCH (05:32)
[2018-09-23 07:13] VITALS: BP 119/52
[2018-09-23] MEDS: ASPIRIN 81 MG PO SCH (07:13)
[2018-09-23] MEDS: AMIODARONE 200 MG TAB PO SCH (07:14)
[2018-09-23] MEDS: METOPROLOL TARTRATE 25 MG TAB PO SCH (07:14)
[2018-09-23] MEDS: CARBIDOPA-LEVODOPA 25-100 MG 1 EACH TAB PO SCH ×2 (07:14→14:59)
[2018-09-23] MEDS: PRIMIDONE 50 MG TAB PO SCH (07:14)
[2018-09-23] MEDS: amLODIPine 5 MG TAB PO SCH (07:14)
[2018-09-23 07:15] LABS: Glucose,Whole Blood 100 mg/dL (75-99)
[2018-09-23] MEDS: FUROSEMIDE 10 MG/ML 4 ML VIAL IV SCH (07:15)
[2018-09-23] MEDS: TERIPARATIDE 20 MCG SQ SCH (07:15)
[2018-09-23] MEDS: AMMONIUM LACTATE 12% LOTION 225 GM BTL TOPICAL SCH (07:15)
[2018-09-23] MEDS: SYMBICORT 160-4.5 MCG INHALER INHALATION SCH (09:00)
[2018-09-23] MEDS ORDERED: VANCOMYCIN TROUGH DUE 1 EACH MISC MISCELLANE ONE (09:00)
[2018-09-23 09:10] VITALS: PULSE 56
[2018-09-23 09:26] LABS: Basophils % (A) 0 %; Eosinophils # (A) 0.2 k/uL (0-0.7); Eosinophils % (A) 3 %; HCT 28.1 % (34.0-46.0); Lymphocytes # (A) 0.6 k/uL (1.0-4.8); Lymphocytes % (A) 10 %; MCH 31.5 pg (25.0-35.0); MCV 98.4 fL (80.0-100.0); Mean Platelet Volume 6.7; Monocytes # (A) 0.4 k/uL (0-1.0); Monocytes % (A) 6 %; Neutrophils # (A) 4.7 k/uL (1.3-7.7); Neutrophils % (A) 77 %; RBC 2.85 m/uL (3.80-5.40); RDW 14.4 % (11.5-15.5); WBC 6.1 k/uL (3.8-10.6)
[2018-09-23] MEDS: VANCOMYCIN 1,250 MG in SODIUM CHLORIDE 0.9% 250 ML IVPB SCH (09:26)
[2018-09-23 09:44] LABS: Platelet Count 218 k/uL (150-450)
[2018-09-23 09:58] LABS: Calcium 8.5 mg/dL (8.4-10.2); Potassium 4.5 mmol/L (3.5-5.1)
[2018-09-23] MEDS: THIAMINE 100 MG TAB PO SCH (12:01)
[2018-09-23] MEDS: MULTIVITAMINS, THERA 1 EACH TAB PO SCH (12:01)
[2018-09-23] MEDS: FERROUS SULFATE 325 MG TAB PO SCH (12:01)
[2018-09-23 12:04] LABS: Glucose,Whole Blood 140 mg/dL (75-99)
[2018-09-23 13:23] VITALS: BMI 28.6
--- NOTE | 2018-09-23 14:18 | P.DS ---
Providers Date of admission: 09/12/18 16:26 Expected date of discharge: 09/23/18 Attending physician: Dinora Plascencia Consults: 09/15/18 13:41 Consult Physician Routine Consulting Provider: Dmitriy Montgomery Consult Reason/Comments: hematuria Do you want consulting provider notified?: Yes 09/15/18 15:43 Consult Physician Routine Consulting Provider: Kt Pratt Consult Reason/Comments: WOUND CARE RIGHT LEG Do you want consulting provider notified?: Yes 09/20/18 15:13 Consult Physician Urgent Consulting Provider: Cristi Graff Consult Reason/Comments: bilateral carotid stenosis seen on CT brain, AMS Do you want consulting provider notified?: Yes 09/12/18 17:48 Consult Physician Routine Consulting Provider: Carlos A Ryan Consult Reason/Comments: hyponatremia Do you want consulting provider notified?: Yes 09/12/18 17:49 Consult Physician Routine Consulting Provider: Kaleb Mckeon Consult Reason/Comments: pl effusion Do you want consulting provider notified?: Yes 09/12/18 22:54 Consult Physician Routine Consulting Provider: Bernard Rodriguez Consult Reason/Comments: chf Do you want consulting provider notified?: Yes Primary care physician: [facility] Course: Final Diagnoses: -Severe Hyponatremia, recurrent, multifactorial, secondary to SIADH, hypovolemic hyponatremia,CHF status post treatment with 3% saline -Acute on chronic CHF exacerbation, diastolic dysfunction with left-sided pleural effusion -Possible TIA, rule out ischemic cerebrovascular accident, MRI completed, suggesting a right thalmic nonhemorrhagic infarction; The MRI findings do not coincide, do not explain the prior day's symptoms. -Bilateral carotid stenosis greater than 70%, follow up outpatient with vascular surgery. -Atrial fibrillation, chronic -Hypomagnesemia -Diabetes mellitus type 2, on insulin pump -Gastroesophageal reflux disease -Right lower extremity chronic ulcer -Mild to moderate protein calorie malnutrition -Anxiety -Hematuria, post Smith catheter insertion, resolved. -Acute blood loss anemia post traumatic Smith catheter insertion -No code, no CPR, no intubation - Hospital course:This is a 73-year-old female admitted with severe hyponatremia, possible SIADH, possible CHF exacerbation and multiple other medical issues. Maintained on gentle IV fluid hydration , sodium increased to 120.Evaluated by a nephrology, IV fluids discontinued, Lasix and fluid restriction initiated. Magnesium currently being replaced. Afebrile. Evaluated by both cardiology and pulmonary with recommendations noted. Sodium and decreased to 117 last night patient transferred to ICU for 3% sodium IV infusion. Sodium currently 123. Diet Intake fair. Telemetry sinus bradycardy, heart rate 50s. 3% saline discontinued, maintained on 1200 ml fluid restrictions. Urine osmolality 299. Chest x-ray reporting left lower lobe infiltrate, small stable bilateral effusions, possible mild central venous congestion, right upper lobe granuloma. Developed hematuria after Smith catheter insertion. Urology consulted with recommendations pending. Fluid restrictions maintained. Sodium 124,3% IV saline resumed last night. Received a dose of IV Lasix earlier today. Requires encouragement with Diet intake. Chest x-ray stable. Appears more short of breath today, chest x-ray reporting interstitial venous congestion, interstitial pneumonitis with bilateral pleural effusions and basilar infiltrate, changes of chronic granulomatous disease. C. difficile toxin Lasix IV push. Last night sodium dropped again, and 3% saline resumed. Currently sodium 127. Hematuria persists, and by urology with recommendations noted. Transferred out of ICU yesterday to [facility]. Patient had increased anxiety, confusion with the transfer, required BiPAP, Xanax. Later received Seroquel. This morning, sleepy, questionable facial droop, and stroke called. Brain CT reporting chronic white matter ischemic changes, CTA reporting bilateral carotid stenosis greater than 70%, greater on the right with normal [place]. Vascular surgery consulted. Spoke with Dr. Graff Patient later drinking through a straw with no facial droop noticed. Garbled Speech varies with confusion, tiredness. Generalized equal weakness. Consumed a few bites at lunch, conversing with at bedside. Accu-Cheks 150s to 200s. Maintained on IV Lasix, received sodium chloride yesterday, Sodium 127.Tolvaptan initiated. Hematuria improving, hemoglobin currently 8.2. Denies chest pain, palpitations. Afebrile, repeat blood cultures in progress, preliminary negative. Much more alert today, asymptomatic. MRI completed, suggesting a right thalmic nonhemorrhagic infarction. Neuro workup discussed with family by internal medicine as well as vascular surgery. Family's wishes are no major surgical interventions. Patient is asymptomatic, speech clear, no facial droop, generalized equal weakness. Denies decreased sensation. The MRI findings do not coincide, do not explain yesterday's symptoms. Anticoagulation remains on hold, no aspirin as hematuria clearing. Blood sugars fluctuating. Diuresing well Lasix IV push with 24-hour I&O reflecting a negative fluid balance. Continues on Tolvaptan. Sodium 128. Renal function stable. IV antibiotics as per ID. Per discussion with Dr. Rivera, cardiology, resume Eliquis, no aspirin. Significant clinical improvement. Patient has been cleared by all consults. Patient being discharged to [facility] subacute rehab in a stable condition with guarded prognosis. EXAM: GENERAL: Sitting up in chair, conversing clearly, Alert and oriented 2, no acute distress HEENT: Conjunctivae normal. eyes normal. Oral conjunctiva moist. No facial droop CARDIOVASCULAR: S1, S2 muffled. Regular, No murmur RESPIRATION: Respiratory effort unlabored.Breath sounds diminished in the bases. Occasional rhonchi with fine bibasilar crackles. ABDOMEN: Soft, nontender . No guarding. no masses palpable. Bowel sounds heard. LEGS: No significant edema. no swelling NERVOUS SYSTEM: Cranial N 2-12 grossly normal. Moves all 4 limbs. Diffuse equal weakness. No focal deficits. The impression and plan of care has been dictated as directed. : I performed a history and examination of this patient, discussed the same with the dictator. I agree with the dictator's note ,documented as a scribe. Any additional findings or plans will be noted. Time taken: 35 minutes Patient Condition at Discharge: Stable Plan - Discharge Summary Discharge Rx Participant: No New Discharge Prescriptions: New amLODIPine [Norvasc] 5 mg PO DAILY tab Ipratropium-Albuterol Nebulize [Duoneb 0.5 mg-3 mg/3 ml Soln] 3 ml INHALATION RT-QID PRN ampul.neb PRN Reason: Shortness Of Breath Or Wheezing Ipratropium-Albuterol Nebulize [Duoneb 0.5 mg-3 mg/3 ml Soln] 3 ml INHALATION RT-Q2H PRN ampul.neb PRN Reason: Shortness Of Breath Or Wheezing Metoprolol Tartrate [Lopressor] 25 mg PO BID tab Tetrahydrozoline 0.05% Ophth [Visine Eye Drops] 1 drops BOTH EYES TID PRN ml PRN Reason: Eye Irritation Furosemide [Lasix] 40 mg PO BID #1 tablet Tolvaptan [Samsca] 15 mg PO DAILY #7 tablet Vancomycin 1,250 mg IVPB Q36H #19 bag Acetaminophen Tab [Tylenol] 650 mg PO Q6HR PRN tab PRN Reason: Mild Pain Or Fever > 100.5 Continue Carbidopa-Levodopa 25-100 mg [Sinemet 25-100 mg] 1 tab PO TID Multivitamins, Thera [Multivitamin (formulary)] 1 tab PO DAILY Levothyroxine Sodium 137 mcg PO DAILY Primidone [Mysoline] 50 mg PO DAILY Venlafaxine HCl ER [Effexor XR] 75 mg PO DAILY Thiamine HCl [Vitamin B-1] 100 mg PO DAILY Lansoprazole 30 mg PO DAILY@0600 Ergocalciferol [Vitamin D2 (DRISDOL)] 50,000 unit PO ROSA Ferrous Sulfate [Iron] 325 mg PO DAILY Docusate [Colace] 100 mg PO BID PRN PRN Reason: Constipation Levocetirizine Dihydrochloride [Xyzal] 5 mg PO HS Vit C/E/Zn/Coppr/Lutein/Zeaxan [Preservision Areds 2 Softgel] 1 tab PO DAILY Fluticasone/Salmeterol [Advair 500-50 Diskus] 1 inhalation PO RT-BID Amiodarone HCl [Pacerone] 200 mg PO DAILY Melatonin 3 mg PO HS PRN PRN Reason: Insomnia Atorvastatin Calcium [Lipitor] 10 mg PO HS@2100 Calcium Carb/Vitamin D3/Vit K1 [Citracal Soft Chew] 1 tab PO DAILY@1700 Ammonium Lactate Lotion [Lac-Hydrin 12% Lotion] 1 applic TOPICAL DAILY Tolterodine Tartrate [Detrol LA] 4 mg PO HS@2100 Apixaban [Eliquis] 5 mg PO BID tab Bisacodyl [Dulcolax] 10 mg RECTAL DAILY PRN PRN Reason: Constipation INSULIN LISPRO (HumaLOG) [humaLOG] 0 unit SQ ACHS Teriparatide [Forteo] 20 mcg SQ DAILY@0800 Folic Acid 1 mg PO DAILY@1700 Magnesium Hydroxide [Milk of Magnesia] 1,200 mg PO DIRECTED PRN PRN Reason: Constipation Changed Insulin Detemir [Levemir] 5 unit SQ HS #1 Discontinued Metoprolol Tartrate [Lopressor] 50 mg PO BID Quinapril HCl [Accupril] 20 mg PO DAILY Teriparatide [Forteo] 20 mcg SQ DAILY Acetaminophen Tab [Tylenol] 650 mg PO Q8H PRN tab PRN Reason: Mild Pain Ipratropium-Albuterol Nebulize [Duoneb 0.5 mg-3 mg/3 ml Soln] 3 ml INHALATION RT-QID PRN ampul.neb PRN Reason: Shortness Of Breath Or Wheezing oxyCODONE-APAP 5-325MG [Percocet 5-325 mg] 0.5 tab PO TID PRN #5 tab PRN Reason: Pain Mineral Oil [[place]et Mineral Oil] 133 ml RECTAL DIRECTED PRN PRN Reason: Constipation Discharge Medication List Carbidopa-Levodopa 25-100 mg [Sinemet 25-100 mg] 1 tab PO TID 01/15/16 [History] Levothyroxine Sodium 137 mcg PO DAILY 04/28/18 [History] Multivitamins, Thera [Multivitamin (formulary)] 1 tab PO DAILY 04/28/18 [History ] Amiodarone HCl [Pacerone] 200 mg PO DAILY 08/09/18 [History] Ammonium Lactate Lotion [Lac-Hydrin 12% Lotion] 1 applic TOPICAL DAILY 08/09/18 [History] Atorvastatin Calcium [Lipitor] 10 mg PO HS@2100 08/09/18 [History] Calcium Carb/Vitamin D3/Vit K1 [Citracal Soft Chew] 1 tab PO DAILY@1700 [History] Docusate [Colace] 100 mg PO BID PRN 08/09/18 [History] Ergocalciferol [Vitamin D2 (DRISDOL)] 50,000 unit PO ROSA 08/09/18 [History] Ferrous Sulfate [Iron] 325 mg PO DAILY 08/09/18 [History] Fluticasone/Salmeterol [Advair 500-50 Diskus] 1 inhalation PO RT-BID 08/09/18 [ History] Lansoprazole 30 mg PO DAILY@0600 08/09/18 [History] Levocetirizine Dihydrochloride [Xyzal] 5 mg PO HS 08/09/18 [History] Melatonin 3 mg PO HS PRN 08/09/18 [History] Primidone [Mysoline] 50 mg PO DAILY 08/09/18 [History] Thiamine HCl [Vitamin B-1] 100 mg PO DAILY 08/09/18 [History] Tolterodine Tartrate [Detrol LA] 4 mg PO HS@2100 08/09/18 [History] Venlafaxine HCl ER [Effexor XR] 75 mg PO DAILY 08/09/18 [History] Vit C/E/Zn/Coppr/Lutein/Zeaxan [Preservision Areds 2 Softgel] 1 tab PO DAILY [History] Apixaban [Eliquis] 5 mg PO BID tab 08/16/18 [Rx] Bisacodyl [Dulcolax] 10 mg RECTAL DAILY PRN 09/12/18 [History] Folic Acid 1 mg PO DAILY@1700 09/12/18 [History] INSULIN LISPRO (HumaLOG) [humaLOG] 0 unit SQ ACHS 09/12/18 [History] Magnesium Hydroxide [Milk of Magnesia] 1,200 mg PO DIRECTED PRN 09/12/18 [ History] Teriparatide [Forteo] 20 mcg SQ DAILY@0800 09/12/18 [History] Acetaminophen Tab [Tylenol] 650 mg PO Q6HR PRN tab 09/23/18 [Rx] Furosemide [Lasix] 40 mg PO BID #1 tablet 09/23/18 [Rx] Insulin Detemir [Levemir] 5 unit SQ HS #1 09/23/18 [Rx] Ipratropium-Albuterol Nebulize [Duoneb 0.5 mg-3 mg/3 ml Soln] 3 ml INHALATION RT -Q2H PRN ampul.neb 09/23/18 [Rx] Ipratropium-Albuterol Nebulize [Duoneb 0.5 mg-3 mg/3 ml Soln] 3 ml INHALATION RT -QID PRN ampul.neb 09/23/18 [Rx] Metoprolol Tartrate [Lopressor] 25 mg PO BID tab 09/23/18 [Rx] Tetrahydrozoline 0.05% Ophth [Visine Eye Drops] 1 drops BOTH EYES TID PRN ml [Rx] Tolvaptan [Samsca] 15 mg PO DAILY #7 tablet 09/23/18 [Rx] Vancomycin 1,250 mg IVPB Q36H #19 bag 09/23/18 [Rx] amLODIPine [Norvasc] 5 mg PO DAILY tab 09/23/18 [Rx] Follow up Appointment(s)/Referral(s): Kaleb Mckeon MD [STAFF PHYSICIAN] - 2 Weeks Ann Marie Gallagher MD [STAFF PHYSICIAN] - 1 Week Dixie Plunkett MD [STAFF PHYSICIAN] - 1 Week Phillip Peña MD [STAFF PHYSICIAN] - 3 Days Dmitriy Montgomery MD [STAFF PHYSICIAN] - 3 Weeks Maximus Odonnell III, MD [Primary Care Provider] - 1 Week (1 week after discharge from subacute rehab) Cristi Graff MD [STAFF PHYSICIAN] - 2 Weeks Alverto Rivera MD [Family Provider] - 10 Days (maintain Prev. scheduled apt.) Ambulatory/Diagnostic Orders: Basic Metabolic Panel [LAB.AMB] Location: None Selected Complete Blood Count w/diff [LAB.AMB] Location: None Selected Vancomycin,Trough [LAB.AMB] Location: None Selected Activity/Diet/Wound Care/Special Instructions: [place] Eliquis, no aspirin as per cardiology- Dr. Rivera Schedule outpatient office cystoscopy with Dr. Montgomery in approximately [address] Graff in 2 weeks upon discharge cbc,bmp In 3 days
[2018-09-23] MEDS ORDERED: LIDOCAINE 1% (PF) 10MG/ML VIAL SQ ONE (14:41)
[2018-09-23] MEDS: VIT A,C & E-LUTEIN-MINERALS 1 EACH TAB PO SCH (14:59)
--- NOTE | 2018-09-23 15:22 | IR ---
EXAMINATION TYPE: IR cvc insert >=5 years DATE OF EXAM: 09/23/2018 COMPARISON: NONE CLINICAL HISTORY: Infection Needs long-term intravenous access for antibiotics. PROCEDURE: After informed consent, the skin overlying the left basilic vein was localized with ultrasound and no david to be compressible and patent. An ultrasound image was obtained and submitted on the patient's c fields. The overlying skin was prepped and draped and Lidocaine was used for local anesthesia. A skin sapna was made with a scalpel. Access was gained to the vein under ultrasound guidance with a 21 gau ge needle and a 0.018 inch wire was advanced. Access site was dilated with Peel-Away sheath and cath eter tailored to the appropriate length and advanced such that the distal tip is at the cavoatrial ju nction. Spot image was obtained verifying placement. Catheter was fixed to the skin and a sterile d ressing was placed following hemostasis. Catheter was aspirated and flushed with saline. Patient wa s discharged in stable condition without complication. Maximal barrier technique is utilized. Ultras ound image is documented on the chart. Ultrasound used with sterile technique. Fluoro time and fluoroscopic images submitted to document procedure: 19 intraoperative C-arm images, 0.1 minutes fluoroscopy time IMPRESSION: STATUS POST ULTRASOUND AND FLUOROSCOPIC GUIDED PICC LINE PLACEMENT, READY FOR USE. THIS PROCEDURE WAS PERFORMED BY THE UNDERSIGNED.
--- NOTE | 2018-09-23 17:50 | PN ---
PROGRESS NOTE Patient is seen for followup for hyponatremia which was secondary to SIADH and a component of hypervolemic hyponatremia. Patient has been maintained on tolvaptan 50 mg daily for the last 3 days. She is also maintained on IV Lasix q.12 hours. Her last sodium was 128, which was stable for the last 2 days. PHYSICAL EXAMINATION: Currently patient is comfortable. She is awake. She is not in any acute distress. On examination today, blood pressure was 119/52, heart rate 52 per minute. She is afebrile. EXAMINATION OF THE HEART: S1, S2. EXAMINATION OF LUNGS: Bilateral breath sounds are heard. Patient does not have any significant edema in the lower extremities. LABS: Sodium 132, potassium 4.5, BUN 48, serum creatinine 0.8, hemoglobin 9.0 g/dL. ASSESSMENT: 1. Hyponatremia secondary to syndrome of inappropriate antidiuretic hormone and a component of hypervolemic hyponatremia, maintained on IV Lasix as well as 3 consecutive doses of tolvaptan. Patient will continue tolvaptan for another 4 to 5 days, and she will be switched over to oral Lasix and repeat labs will be done in 3 to 4 days post discharge. 2. Staphylococcus aureus bacteremia, maintained on vancomycin. Repeat blood cultures have been negative. PLAN: As mentioned above. MMODL / IJN: [id number] /
--- NOTE | 2018-09-23 20:29 | P.PN ---
Subjective Progress Note Date: 09/22/18 Progress note being dictated for Interval history: This is a 73-year-old female admitted with severe hyponatremia , possible SIADH, possible CHF exacerbation and multiple other medical issues. Maintained on gentle IV fluid hydration , sodium increased to 120.Evaluated by a nephrology, IV fluids discontinued, Lasix and fluid restriction initiated. Magnesium currently being replaced. Afebrile. Evaluated by both cardiology and pulmonary with recommendations noted. 09/14/18 sodium and decreased to 117 last night patient transferred to ICU for 3 % sodium IV infusion. Sodium currently 123. Diet Intake fair. Telemetry sinus bradycardy, heart rate 50s. 3% saline discontinued, maintained on 1200 ml fluid restrictions. Urine osmolality 299. Chest x-ray reporting left lower lobe infiltrate, small stable bilateral effusions, possible mild central venous congestion, right upper lobe granuloma. 09/15/18 developed hematuria after Smith catheter insertion. Urology consulted with recommendations pending. Fluid restrictions maintained. Sodium 124,3% IV saline resumed last night. Received a dose of IV Lasix earlier today. Requires encouragement with Diet intake. Chest x-ray stable. 09/16/2018 appears more short of breath today, chest x-ray reporting interstitial venous congestion, interstitial pneumonitis with bilateral pleural effusions and basilar infiltrate, changes of chronic granulomatous disease. C. difficile toxin Lasix IV push. Last night sodium dropped again, and 3% saline resumed. Currently sodium 127. Hematuria persists, and by urology with recommendations noted. 09/20/2018 transferred out of ICU yesterday to [facility]. Patient had increased anxiety, confusion with the transfer, required BiPAP, Xanax. Later received Seroquel. This morning, sleepy, questionable facial droop, and stroke called. Brain CT reporting chronic white matter ischemic changes, CTA reporting bilateral carotid stenosis greater than 70%, greater on the right with normal [place] of [place]. Vascular surgery consulted. Spoke with Dr. Graff Patient later drinking through a straw with no facial droop noticed. Garbled Speech varies with confusion, tiredness. Generalized equal weakness. Consumed a few bites at lunch, conversing with at bedside. Accu-Cheks 150s to 200s. Maintained on IV Lasix, received sodium chloride yesterday, Sodium 127.Tolvaptan initiated. Hematuria improving, hemoglobin currently 8.2. Denies chest pain, palpitations. Afebrile, repeat blood cultures in progress, preliminary negative. 09/21/2018 Much more alert today, asymptomatic. MRI completed, suggesting a right thalmic nonhemorrhagic infarction. Neuro workup discussed with family by internal medicine as well as vascular surgery. Family's wishes are no major surgical interventions. Patient is asymptomatic, speech clear, no facial droop , generalized equal weakness. Denies decreased sensation. The MRI findings do not coincide, do not explain yesterday's symptoms. Anticoagulation remains on hold, no aspirin as hematuria clearing. Blood sugars fluctuating. Diuresing well Lasix IV push with 24-hour I&O reflecting a negative fluid balance. Continues on Tolvaptan. Sodium 128. Renal function stable. IV antibiotics as per infectious disease. 09/22/2018 no overnight events. Continues on Lasix IV push,Tolvaptan. Sodium 128. Sitting up in a chair, conversing clearly, no apparent neuro deficits. Denies chest pain, palpitations or increased shortness of breath. Renal function stable. Pre-Authorization in progress for subacute rehab. Objective - Vital Signs Vital signs: Vital Signs Temp 98.2 F 09/22/18 20:35 Pulse 60 09/22/18 20:35 Resp 17 09/22/18 20:35 BP 135/54 09/22/18 20:35 Pulse Ox 100 09/22/18 20:35 Intake & Output 09/22/18 09/22/18 09/23/18 06:59 18:59 06:59 Intake Total 660 100 Output Total 1200 950 100 Balance -540 -950 0 Weight 66.5 kg Intake: Oral 660 100 Output: Urine 1200 950 Straight 950 Post Void Residual 100 Other: Voiding Method Indwelling Catheter # Voids 0 - Exam PHYSICAL EXAM: VITAL SIGNS: As above GENERAL: Sitting up in chair, conversing clearly, Alert and oriented 2, no acute distress HEENT: Conjunctivae normal. eyes normal. Oral conjunctiva moist. NECK: No JVD. No thyroid enlargement. No LNs CARDIOVASCULAR: S1, S2 muffled. Regular, No murmur RESPIRATION: Respiratory effort unlabored.Breath sounds diminished in the bases. Occasional rhonchi with fine bibasilar crackles. ABDOMEN: Soft, nontender . No guarding. no masses palpable. Bowel sounds heard. LEGS: No significant edema. no swelling NERVOUS SYSTEM: Cranial N 2-12 grossly normal. Moves all 4 limbs. Diffuse equal weakness. No focal deficits. Skin: no rash - Labs CBC & Chem 7: 09/23/18 08:27 09/23/18 08:27 Labs: Abnormal Lab Results - Last 24 Hours (Table) 09/22/18 09/22/18 09/22/18 Range/Units 02:31 07:31 07:52 Sodium 128 L (137-145) mmol/L Chloride 91 L (98-107) mmol/L Carbon Dioxide 33 H (22-30) mmol/L BUN 48 H (7-17) mg/dL Glucose 73 L (74-99) mg/dL POC Glucose (mg/dL) 148 H 73 L (75-99) mg/dL 09/22/18 09/22/18 09/22/18 Range/Units 12:20 17:00 20:42 Sodium (137-145) mmol/L Chloride (98-107) mmol/L Carbon Dioxide (22-30) mmol/L BUN (7-17) mg/dL Glucose (74-99) mg/dL POC Glucose (mg/dL) 146 H 119 H 176 H (75-99) mg/dL Microbiology - Last 24 Hours (Table) 09/18/18 14:40 Blood Culture - Preliminary Blood No Growth after 96 hours Assessment and Plan Assessment: -Severe Hyponatremia, recurrent, multifactorial, secondary to SIADH, hypovolemic hyponatremia,CHF status post treatment with 3% saline -Acute on chronic CHF exacerbation, diastolic dysfunction with left-sided pleural effusion -Possible TIA, rule out ischemic cerebrovascular accident, MRI completed, suggesting a right thalmic nonhemorrhagic infarction; The MRI findings do not coincide, do not explain the prior day's symptoms. -Bilateral carotid stenosis greater than 70%, follow up outpatient with vascular surgery. -Atrial fibrillation, chronic -Hypomagnesemia -Diabetes mellitus type 2, on insulin pump -Gastroesophageal reflux disease -Right lower extremity chronic ulcer -Mild to moderate protein calorie malnutrition -Anxiety -Hematuria, post Smith catheter insertion, improving. -No code, no CPR, no intubation Plan: Continue on current medication regime ,salt tablets,monitoring and symptomatic treatment. Diuretics and Tolvaptan continue as per nephrology Antibiotics as per infectious disease. Significant clinical improvement. Family updated on plan of Discharge tomorrow to [facility]. Prognosis guarded given multiple complex medical issues. The impression and plan of care has been dictated as directed. : I performed a history and examination of this patient, discussed the same with the dictator. I agree with the dictator's note ,documented as a scribe. Any additional findings or plans will be noted. Time taken: 30 minutes
[2018-09-24] MEDS ORDERED: VANCOMYCIN 1,250 MG in SODIUM CHLORIDE 0.9% 250 ML IVPB SCH (21:00)
== END 2018-09-23 16:09 | DRG 643 ==
LOC: EC 13:54 → EEVIPCON 16:26 → 3SCARD 16:26 → 2SICU 09-14 01:56 → 4MS4W 09-19 14:52 → 4SSUR 09-20 14:04
PROVIDERS: ADMIT Internal Medicine; ATTEND Internal Medicine
PROC: 5A09357 Assistance with Respiratory Ventilation, Less than 24 Consecutive Hours, Continuous Positive Airway Pressure (ICD-10-PCS; 2018-09-12)
PROC: 02HV33Z Insertion of Infusion Device into Superior Vena Cava, Percutaneous Approach (ICD-10-PCS; principal; 2018-09-23 14:30)
DX: E22.2 Syndrome of inappropriate secretion of antidiuretic hormone (principal); I50.33 Acute on chronic diastolic (congestive) heart failure; I63.9 Cerebral infarction, unspecified; J18.9 Pneumonia, unspecified organism; J96.91 Respiratory failure, unspecified with hypoxia; D62 Acute posthemorrhagic anemia; E44.0 Moderate protein-calorie malnutrition; J44.0 Chronic obstructive pulmonary disease with (acute) lower respiratory infection; K51.90 Ulcerative colitis, unspecified, without complications; L97.912 Non-pressure chronic ulcer of unspecified part of right lower leg with fat layer exposed; N17.9 Acute kidney failure, unspecified; S37.90XA Unspecified injury of unspecified urinary and pelvic organ, initial encounter; T83.83XA Hemorrhage due to genitourinary prosthetic devices, implants and grafts, initial encounter; I45.2 Bifascicular block; B95.61 Methicillin susceptible Staphylococcus aureus infection as the cause of diseases classified elsewhere; D53.9 Nutritional anemia, unspecified; D69.6 Thrombocytopenia, unspecified; D71 Functional disorders of polymorphonuclear neutrophils; D72.819 Decreased white blood cell count, unspecified; E03.9 Hypothyroidism, unspecified; E11.41 Type 2 diabetes mellitus with diabetic mononeuropathy; E11.622 Type 2 diabetes mellitus with other skin ulcer; E78.5 Hyperlipidemia, unspecified; E83.42 Hypomagnesemia; E87.5 Hyperkalemia; F40.240 Claustrophobia; G20 Parkinson's disease; H35.30 Unspecified macular degeneration; H54.62 Unqualified visual loss, left eye, normal vision right eye; H70.90 Unspecified mastoiditis, unspecified ear; I11.0 Hypertensive heart disease with heart failure; I48.2 Chronic atrial fibrillation; I65.23 Occlusion and stenosis of bilateral carotid arteries; J32.3 Chronic sphenoidal sinusitis; J84.89 Other specified interstitial pulmonary diseases; K21.9 Gastro-esophageal reflux disease without esophagitis; N39.41 Urge incontinence; R29.810 Facial weakness; R31.0 Gross hematuria; Y84.6 Urinary catheterization as the cause of abnormal reaction of the patient, or of later complication, without mention of misadventure at the time of the procedure; Z79.01 Long term (current) use of anticoagulants; Z79.4 Long term (current) use of insulin; Z79.51 Long term (current) use of inhaled steroids; Z79.890 Hormone replacement therapy; Z79.899 Other long term (current) drug therapy; Z80.1 Family history of malignant neoplasm of trachea, bronchus and lung; Z85.828 Personal history of other malignant neoplasm of skin; Z86.73 Personal history of transient ischemic attack (TIA), and cerebral infarction without residual deficits; Z88.1 Allergy status to other antibiotic agents; Z90.710 Acquired absence of both cervix and uterus; Z98.42 Cataract extraction status, left eye; Z98.41 Cataract extraction status, right eye; Z96.1 Presence of intraocular lens; Z96.41 Presence of insulin pump (external) (internal); Z99.81 Dependence on supplemental oxygen; Z91.81 History of falling; Z66 Do not resuscitate; Z87.440 Personal history of urinary (tract) infections; K42.9 Umbilical hernia without obstruction or gangrene; Z85.819 Personal history of malignant neoplasm of unspecified site of lip, oral cavity, and pharynx; H91.90 Unspecified hearing loss, unspecified ear; Z88.0 Allergy status to penicillin; Z88.2 Allergy status to sulfonamides; Z88.8 Allergy status to other drugs, medicaments and biological substances; F10.11 Alcohol abuse, in remission; Z79.891 Long term (current) use of opiate analgesic; H53.8 Other visual disturbances
CPT/HCPCS: 36415; 36573; 36600; 70450; 70496; 70498; 70551; 71045; 71046; 76770; 80048; 80051; 80053; 80061; 80202; 82550; 82553; 82805; 83036; 83605; 83735; 83930; 83935; 83970; 84100; 84132; 84295; 84300; 84443; 84484; 84550; 85025; 85610; 85730; 87040; 87077; 87086; 87186; 93005; 93306; 94640; 94660; 94760; 96361; 96365; 96375; 99285

== ENCOUNTER 2018-10-24 13:18 | Inpatient (IN) | payer MEDICARE, BC ==
[2018-10-24] MEDS ORDERED: MORPHINE SULFATE 4 MG/ML SYRINGE IVP ONE (14:31)
[2018-10-24 14:58] LABS: Basophils % (A) 1 %; Eosinophils # (A) 0.1 k/uL (0-0.7); Eosinophils % (A) 2 %; HCT 33.2 % (34.0-46.0); Lymphocytes # (A) 0.4 k/uL (1.0-4.8); Lymphocytes % (A) 12 %; MCV 99.8 fL (80.0-100.0); Mean Platelet Volume 6.7; Monocytes # (A) 0.3 k/uL (0-1.0); Monocytes % (A) 8 %; Neutrophils # (A) 2.5 k/uL (1.3-7.7); Neutrophils % (A) 74 %; Platelet Count 112 k/uL (150-450); RBC 3.32 m/uL (3.80-5.40); RDW 13.9 % (11.5-15.5); WBC 3.4 k/uL (3.8-10.6)
[2018-10-24 15:05] LABS: ALT 35 U/L (9-52); AST 48 U/L (14-36); Albumin 2.9 g/dL (3.5-5.0); Alkaline Phosphatase 74 U/L (38-126); Amylase <30 U/L (30-110); Anion Gap 5 mmol/L; Blood Urea Nitrogen 37 mg/dL (7-17); Calcium 8.5 mg/dL (8.4-10.2); Carbon Dioxide 38 mmol/L (22-30); Chloride 90 mmol/L (98-107); Glucose 143 mg/dL (74-99); Lipase 16 U/L (23-300); Potassium 4.5 mmol/L (3.5-5.1); Sodium 133 mmol/L (137-145); Total Bilirubin 0.6 mg/dL (0.2-1.3); Total Protein 5.7 g/dL (6.3-8.2)
[2018-10-24] MEDS: SODIUM CHLORIDE 0.9% 1,000 ML IV SCH (15:05)
[2018-10-24 15:21] LABS: HGB 10.9 gm/dL (11.4-16.0)
[2018-10-24 15:50] LABS: Appearance,Urine Cloudy (Clear); Bilirubin,Urine Negative (Negative); Blood,Urine Small (Negative); Color,Urine Yellow; Glucose,Urine (UA) Negative (Negative); Ketones,Urine Negative (Negative); Leukocyte Esterase,Urine Large (Negative); Mucus,Urine Rare /hpf; Nitrite,Urine Negative (Negative); PH, Urine 8.5 (5.0-8.0); Protein,Urine Trace (Negative); Specific Gravity,Urine 1.009 (1.001-1.035); WBC,Urine 72 /hpf (0-5)
--- NOTE | 2018-10-24 16:18 | CT ---
EXAMINATION TYPE: CT abdomen pelvis w con DATE OF EXAM: 10/24/2018 COMPARISON: None HISTORY: Pain CONTRAST: CT scan of the abdomen and pelvis is performed without Oral Contrast and with IV Contrast, patient in jected with 50 mL of Isovue 300. FINDINGS: LUNG BASES-: Basilar pleural effusions left greater than right and compressive atelectasis and/or inf iltrates of uncertain etiology. Remote granulomatous disease. LIVER/GB: The gallbladder surgically absent. Nodular hepatic contour compatible with cirrhotic live r disease. Varices noted compatible with portal venous hypertension. No space occupying hepatic lesi on. Biliary tree is of normal caliber. PANCREAS: No inflammation. No distinct mass. SPLEEN: No splenic enlargement. No lesion seen. ADRENALS: No nodule. No thickening. KIDNEYS/BLADDER: No hydronephrosis. No nephrolithiasis. No distinct renal mass. Smith balloon cath eter is in place. BOWEL: Normal appendix. Normal bowel caliber. Perirectal stranding noted which may reflect proctocol itis. GENITAL ORGANS: No gross abnormality. LYMPH NODES: No greater than 1cm abdominal or pelvic lymph nodes are appreciated. AORTA: No significant abnormality. OSSEOUS STRUCTURES: Severe degenerative change L4 and L5 with anterolisthesis and underlying sclerosi s. OTHER: Hematoma noted at the level of the right external oblique musculature measuring 8.7 x 5.1 x 4. 7 cm. Adjacent subcutaneous fluid and stranding. IMPRESSION: 1. Hematoma noted at the level of the right external oblique musculature measuring 8.7 x 5.1 x 4.7 cm . 2. Perirectal stranding noted which may reflect proctocolitis. 3. Basilar pleural effusions with underlying atelectasis and/or infiltrates.
--- NOTE | 2018-10-24 16:22 | ED ---
Abdominal Pain HPI - General Source: patient, EMS, RN notes reviewed, old records reviewed Mode of arrival: EMS Limitations: no limitations <Krissy Bang - Last Filed: 10/24/18 17:52> <Mickey Linn - Last Filed: 10/24/18 18:03> - General Chief Complaint: Abdominal Pain Stated Complaint: abd pain Time Seen by Provider: 10/24/18 14:06 - History of Present Illness Initial Comments: Patient is a 73-year-old female presents return today with chief complaint of a mass over the right lower quadrant of her abdomen. She reports that she's noticed the swelling for quite some time. She reports that it is now acutely tender and painful. Patient states that she believes she has had a hernia in this area for quite some time. She denies any recent fall or trauma to the area. She states that she has occasional fevers or chills. She denies any chest pain shortness of breath nausea or vomiting. Patient reports that she is currently residing at extended care facility due to bacteremia. She has recently finished a lengthy course of IV antibiotics. She also has a retaining Smith catheter at this time due to concern for frequent falls and inability to ambulate to the bathroom well. (Krissy Bang) - Related Data Home Medications Medication Instructions Recorded Confirmed Carbidopa-Levodopa 25-100 mg 1 tab PO TID 01/15/16 10/24/18 [Sinemet 25-100 mg] Levothyroxine Sodium 137 mcg PO DAILY@0600 04/28/18 10/24/18 Multivitamins, Thera [Multivitamin 1 tab PO DAILY@1700 04/28/18 10/24/18 (formulary)] Amiodarone HCl [Pacerone] 200 mg PO DAILY 08/09/18 10/24/18 Atorvastatin Calcium [Lipitor] 10 mg PO HS@2100 08/09/18 10/24/18 Calcium Carb/Vitamin D3/Vit K1 1 tab PO DAILY@1700 08/09/18 10/24/18 [Citracal Soft Chew] Docusate [Colace] 100 mg PO BID PRN 08/09/18 10/24/18 Ergocalciferol [Vitamin D2 50,000 unit PO ROSA 08/09/18 10/24/18 (DRISDOL)] Ferrous Sulfate [Iron] 325 mg PO BID@0800,1700 08/09/18 10/24/18 Fluticasone/Salmeterol [Advair 1 inhalation PO RT-BID 08/09/18 10/24/18 500-50 Diskus] Lansoprazole 30 mg PO DAILY@0600 08/09/18 10/24/18 Levocetirizine Dihydrochloride 5 mg PO HS 08/09/18 10/24/18 [Xyzal] Primidone [Mysoline] 50 mg PO DAILY 08/09/18 10/24/18 Thiamine HCl [Vitamin B-1] 100 mg PO DAILY@1700 08/09/18 10/24/18 Tolterodine Tartrate [Detrol LA] 4 mg PO HS@2100 08/09/18 10/24/18 Venlafaxine HCl ER [Effexor XR] 75 mg PO DAILY 08/09/18 10/24/18 Vit C/E/Zn/Coppr/Lutein/Zeaxan 1 tab PO DAILY 08/09/18 10/24/18 [Preservision Areds 2 Softgel] Bisacodyl [Dulcolax] 10 mg RECTAL DAILY PRN 09/12/18 10/24/18 Folic Acid 1 mg PO DAILY@1700 09/12/18 10/24/18 INSULIN LISPRO (HumaLOG) [humaLOG] See Protocol SQ HS 09/12/18 10/24/18 Magnesium Hydroxide [Milk of 2,400 mg PO DAILY PRN 09/12/18 10/24/18 Magnesia] Ammonium Lactate Lotion 1 applic TOPICAL DAILY 10/24/18 10/24/18 [Lac-Hydrin 12% Lotion] Apixaban [Eliquis] 5 mg PO BID@0800,1700 10/24/18 10/24/18 Furosemide [Lasix] 40 mg PO DAILY@1400 10/24/18 10/24/18 Furosemide [Lasix] 80 mg PO DAILY 10/24/18 10/24/18 INSULIN LISPRO (HumaLOG) [HumaLOG] See Protocol SQ AC-TID 10/24/18 10/24/18 Insulin Detemir [Levemir] 5 unit SQ QAM 10/24/18 10/24/18 Ipratropium-Albuterol Nebulize 3 ml INHALATION RT-BID 10/24/18 10/24/18 [Duoneb 0.5 mg-3 mg/3 ml Soln] Ipratropium-Albuterol Nebulize 3 ml INHALATION RT-QID PRN 10/24/18 10/24/18 [Duoneb 0.5 mg-3 mg/3 ml Soln] Lactose-Reduced Food [Ensure Plus] 240 ml PO TID@0800,1700,2100 10/24/18 Magnesium Oxide [Mag-Ox] 400 mg PO DAILY 10/24/18 10/24/18 Melatonin 1 mg PO HS PRN 10/24/18 10/24/18 Menthol [Biofreeze] 1 applic TOPICAL QID PRN 10/24/18 10/24/18 Na Phos,M-B/Na Phos,Di-Ba [Fleet 133 ml RECTAL DAILY PRN 10/24/18 10/24/18 Adult] Potassium Chloride [Klor-Con 20] 20 meq PO DAILY 10/24/18 10/24/18 Teriparatide [Forteo] 20 mcg SQ DAILY 10/24/18 10/24/18 traZODone HCL 50 mg PO HS 10/24/18 10/24/18 Previous Rx's Medication Instructions Recorded Acetaminophen Tab [Tylenol] 650 mg PO Q6HR PRN tab 09/23/18 Metoprolol Tartrate [Lopressor] 25 mg PO BID tab 09/23/18 Tetrahydrozoline 0.05% Ophth 1 drops BOTH EYES TID PRN ml 09/23/18 [Visine Eye Drops] amLODIPine [Norvasc] 5 mg PO DAILY tab 09/23/18 Allergies Allergy/AdvReac Type Severity Reaction Status Date / Time cefdinir Allergy Severe Swelling Verified 10/24/18 14:05 Cephalosporins Allergy Unknown Verified 10/24/18 14:05 codeine Allergy Unknown Verified 10/24/18 14:05 doxycycline Allergy Nausea & Verified 10/24/18 14:05 Vomiting erythromycin base Allergy Nausea & Verified 10/24/18 14:05 Vomiting & Diarrhea/RASH Penicillins Allergy Rash/Hives Verified 10/24/18 14:05 trimethoprim [From Bactrim] Allergy Unknown Verified 10/24/18 14:05 azithromycin AdvReac Nausea & Verified 10/24/18 14:05 Vomiting hydrochlorothiazide AdvReac Nausea & Verified 10/24/18 14:05 [From Dyazide] Vomiting levofloxacin [From Levaquin] AdvReac Abdominal Verified 10/24/18 14:05 Pain moxifloxacin HCl AdvReac Unknown Verified 10/24/18 14:05 [From Avelox] sulfamethoxazole AdvReac Nausea & Verified 10/24/18 14:05 [From Bactrim] Vomiting & Diarrhea triamterene [From Dyazide] AdvReac Nausea & Verified 10/24/18 14:05 Vomiting Review of Systems ROS Other: All systems not noted in ROS Statement are negative. <Krissy Bang - Last Filed: 10/24/18 17:52> ROS Other: All systems not noted in ROS Statement are negative. <Mickey Linn - Last Filed: 10/24/18 18:03> ROS Statement: Those systems with pertinent positive or pertinent negative responses have been documented in the HPI. 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 Past Anesthesia/Blood Transfusion Reactions: No Reported Reaction Additional Past Anesthesia/Blood Transfusion Reaction / Comment(s): CLAUSTERPHOBIA Past Psychological History: Anxiety Smoking Status: Never smoker Past Alcohol Use History: None Reported Past Drug Use History: None Reported - Past Family History Father Family Medical History: Cancer, Prostate Disorder Additional Family Medical History / Comment(s): PROSTATE CA, HERNIA SX BACK SX Mother Family Medical History: Cancer Additional Family Medical History / Comment(s): Mother is . Mother had lung cancer. She was a smoker. <Krissy Bang - Last Filed: 10/24/18 17:52> General Exam Limitations: no limitations General appearance: alert, in no apparent distress Head exam: Present: atraumatic, normocephalic, normal inspection Eye exam: Present: normal appearance, PERRL, EOMI. Absent: scleral icterus, conjunctival injection, periorbital swelling ENT exam: Present: normal exam, mucous membranes moist Neck exam: Present: normal inspection. Absent: tenderness, meningismus, lymphadenopathy Respiratory exam: Present: normal lung sounds bilaterally. Absent: respiratory distress, wheezes, rales, rhonchi, stridor Cardiovascular Exam: Present: regular rate, normal rhythm, normal heart sounds. Absent: systolic murmur, diastolic murmur, rubs, gallop, clicks GI/Abdominal exam: Present: soft, tenderness (Patient has a 10 cm x 8 cm firm mass over the right lower quadrant of the abdomen. She reports it's tender to palpation. She denies any overlying skin changes.), normal bowel sounds. Absent: distended, guarding, rebound, rigid Extremities exam: Present: normal inspection, full ROM, normal capillary refill. Absent: tenderness, pedal edema, joint swelling, calf tenderness Back exam: Present: normal inspection Neurological exam: Present: alert, oriented X3, CN II-XII intact Psychiatric exam: Present: normal affect, normal mood Skin exam: Present: warm, dry, intact, normal color. Absent: rash <Krissy Bang - Last Filed: 10/24/18 17:52> <Mickey Linn - Last Filed: 10/24/18 18:03> - General Exam Comments Initial Comments: This is a 73-year-old female. Pleasantly slightly confused. Family reports that this is chronic. (Krissy Bang) Course <Krissy Bang - Last Filed: 10/24/18 17:52> <Mickey Linn - Last Filed: 10/24/18 18:03> Vital Signs 10/24/18 10/24/18 10/24/18 13:36 15:08 17:16 Temperature 98 F 97.5 F L Pulse Rate 53 L 54 L 55 L Respiratory 18 18 18 Rate Blood Pressure 120/103 118/50 117/51 O2 Sat by Pulse 100 98 100 Oximetry - Reevaluation(s) Reevaluation #1: 10/24/18 17:42 PA supervision: I proceeded [id number] evaluation patient did discuss Pfizer the patient and her . Patient did present with right flank pain it does demonstrate a markedly large hematoma on the right side this is confirmed by CAT scan. Patient's also had fevers and sweats she states she has had CAT scan evidence of proctocolitis. Will be admitted for IV fluids and evaluation of the above. I do agree with the assessment and plan. Asystole discussed with Dr. Brasher's groupTemo. (Mickey Linn) Medical Decision Making - Lab Data Result diagrams: 10/24/18 14:05 10/24/18 14:05 - Radiology Data Radiology results: report reviewed <Krissy Bang - Last Filed: 10/24/18 17:52> - Lab Data Result diagrams: 10/24/18 14:05 10/24/18 14:05 <Mickey Linn - Last Filed: 10/24/18 18:03> - Medical Decision Making Patient is a 73-year-old female with multiple comorbidities presents today with complaints of right lower quadrant mass. She reports that she's had this area for quite some time and believed to be a hernia. Patient was quite tender to palpation over the area. She is currently residing in an extended care facility due to sepsis and has finished a course of IV antibiotics. At this time Patient presents is also complaining of occasional fever and chills and generalized abdominal pain. CT abdomen and pelvis was completed. The mass was found to be a large hematoma measuring 8.7 x 5.[address] also notes. Rectal stranding noted which may reflect proctocolitis. She does report that she's had looser stools were as of recently. With the multiple antibiotics I will check the Patient for C. diff if she does have a stool. CT also shows basilar pleural effusions with underlying atelectasis and possible infiltrate. Patient has multiple antibiotic ALLERGIES. Her urinalysis does show multiple white blood cells well. Patient's [id number] is a physician at this facility stating that she's had a Smith catheter in place for over 2 months. Patient [id number] a request that we change the catheter at this time. We will obtain a urine culture from the clean sample as well as the first sample that was given off the Smith catheter bag today. At this time on the Patient for further evaluation for the colitis. And possibility of consult to infectious disease findings of her cultures. With the significant recent antibiotic use and no fever at this time I did discuss that we will hold off on antibiotics until cultures are completed. (Krissy Bang) - Lab Data Lab Results 10/24/18 10/24/18 10/24/18 Range/Units 14:05 14:05 14:05 WBC 3.4 L (3.8-10.6) k/uL RBC 3.32 L (3.80-5.40) m/uL Hgb 10.9 L D (11.4-16.0) gm/dL Hct 33.2 L (34.0-46.0) % MCV 99.8 (80.0-100.0) fL MCH 33.0 (25.0-35.0) pg MCHC 33.0 (31.0-37.0) g/dL RDW 13.9 (11.5-15.5) % Plt Count 112 L (150-450) k/uL Neutrophils % 74 % Lymphocytes % 12 % Monocytes % 8 % Eosinophils % 2 % Basophils % 1 % Neutrophils # 2.5 (1.3-7.7) k/uL Lymphocytes # 0.4 L (1.0-4.8) k/uL Monocytes # 0.3 (0-1.0) k/uL Eosinophils # 0.1 (0-0.7) k/uL Basophils # 0.0 (0-0.2) k/uL Sodium 133 L (137-145) mmol/L Potassium 4.5 (3.5-5.1) mmol/L Chloride 90 L (98-107) mmol/L Carbon Dioxide 38 H (22-30) mmol/L Anion Gap 5 mmol/L BUN 37 H (7-17) mg/dL Creatinine 1.08 H (0.52-1.04) mg/dL Est GFR (CKD-EPI)AfAm 58 (>60 ml/min/1.73 sqM) Est GFR (CKD-EPI)NonAf 50 (>60 ml/min/1.73 sqM) Glucose 143 H (74-99) mg/dL Plasma Lactic Acid Nam 1.0 (0.7-2.0) mmol/L Calcium 8.5 (8.4-10.2) mg/dL Total Bilirubin 0.6 (0.2-1.3) mg/dL AST 48 H (14-36) U/L ALT 35 (9-52) U/L Alkaline Phosphatase 74 (38-126) U/L Total Protein 5.7 L (6.3-8.2) g/dL Albumin 2.9 L (3.5-5.0) g/dL Amylase <30 L (30-110) U/L Lipase 16 L (23-300) U/L Urine Color Urine Appearance (Clear) Urine pH (5.0-8.0) Ur Specific [place] (1.001-1.035) Urine Protein (Negative) Urine Glucose (UA) (Negative) Urine Ketones (Negative) Urine Blood (Negative) Urine Nitrite (Negative) Urine Bilirubin (Negative) Urine Urobilinogen (<2.0) mg/dL Ur Leukocyte Esterase (Negative) Urine WBC (0-5) /hpf Urine Mucus (None) /hpf 10/24/18 Range/Units 15:02 WBC (3.8-10.6) k/uL RBC (3.80-5.40) m/uL Hgb (11.4-16.0) gm/dL Hct (34.0-46.0) % MCV (80.0-100.0) fL MCH (25.0-35.0) pg MCHC (31.0-37.0) g/dL RDW (11.5-15.5) % Plt Count (150-450) k/uL Neutrophils % % Lymphocytes % % Monocytes % % Eosinophils % % Basophils % % Neutrophils # (1.3-7.7) k/uL Lymphocytes # (1.0-4.8) k/uL Monocytes # (0-1.0) k/uL Eosinophils # (0-0.7) k/uL Basophils # (0-0.2) k/uL Sodium (137-145) mmol/L Potassium (3.5-5.1) mmol/L Chloride (98-107) mmol/L Carbon Dioxide (22-30) mmol/L Anion Gap mmol/L BUN (7-17) mg/dL Creatinine (0.52-1.04) mg/dL Est GFR (CKD-EPI)AfAm (>60 ml/min/1.73 sqM) Est GFR (CKD-EPI)NonAf (>60 ml/min/1.73 sqM) Glucose (74-99) mg/dL Plasma Lactic Acid Nam (0.7-2.0) mmol/L Calcium (8.4-10.2) mg/dL Total Bilirubin (0.2-1.3) mg/dL AST (14-36) U/L ALT (9-52) U/L Alkaline Phosphatase (38-126) U/L Total Protein (6.3-8.2) g/dL Albumin (3.5-5.0) g/dL Amylase (30-110) U/L Lipase (23-300) U/L Urine Color Yellow Urine Appearance Cloudy H (Clear) Urine pH 8.5 H (5.0-8.0) Ur Specific [place] 1.009 (1.001-1.035) Urine Protein Trace H (Negative) Urine Glucose (UA) Negative (Negative) Urine Ketones Negative (Negative) Urine Blood Small H (Negative) Urine Nitrite Negative (Negative) Urine Bilirubin Negative (Negative) Urine Urobilinogen 3.0 (<2.0) mg/dL Ur Leukocyte Esterase Large H (Negative) Urine WBC 72 H (0-5) /hpf Urine Mucus Rare H (None) /hpf - Radiology Data CT abdomen and pelvis shows a hematoma noted the level of the right external oblique musculature measuring 8.7 x 5.1 x 4.7. Perirectal stranding noted that she may reflect proctocolitis. Basilar pleural effusions are noted with underlying atelectasis or possible infiltrate. (Krissy Bang) Disposition Is patient prescribed a controlled substance at d/c from ED?: No Time of Disposition: 17:59 <Krissy Bang - Last Filed: 10/24/18 17:52> <Mickey Linn - Last Filed: 10/24/18 18:03> Clinical Impression: Colitis, Pleural effusion, Abdominal hematoma Disposition: ADMITTED IP TO THIS HOSP Condition: Stable Referrals: Naresh Morales DO [Primary Care Provider] - 1-2 days
[2018-10-24] MEDS ORDERED: NALOXONE 0.4 MG/ML 1 ML VIAL IV PRN (18:00)
[2018-10-24] MEDS ORDERED: LORazepam 2 MG/ML INJ IV PRN (18:00)
[2018-10-24] MEDS ORDERED: MAGNESIUM HYDROXIDE 2,400 MG/10 ML CUP PO PRN (18:02)
[2018-10-24] MEDS ORDERED: BISACODYL 10 MG SUPP RECTAL PRN (18:02)
[2018-10-24] MEDS ORDERED: MELATONIN 1 MG TAB PO PRN (18:02)
[2018-10-24] MEDS ORDERED: NON-FORMULARY DRUG (Menthol [Biofreeze] 1 APPLIC) TOPICAL PRN (18:02)
[2018-10-24 18:29] LABS: Appearance,Urine Cloudy (Clear); Bacteria,Urine Rare /hpf; Bilirubin,Urine Negative (Negative); Blood,Urine Trace (Negative); Color,Urine Light Yellow; Glucose,Urine (UA) Negative (Negative); Ketones,Urine Negative (Negative); Leukocyte Esterase,Urine Large (Negative); Mucus,Urine Rare /hpf; Nitrite,Urine Negative (Negative); Protein,Urine Negative (Negative); RBC,Urine 6 /hpf (0-5); Specific Gravity,Urine 1.012 (1.001-1.035)
[2018-10-24] MEDS: SYMBICORT 160-4.5 MCG INHALER INHALATION SCH (20:57)
[2018-10-24] MEDS: IPRATROPIUM-ALBUTEROL 3 ML NEB INHALATION SCH (20:57)
[2018-10-24] MEDS ORDERED: NON-FORMULARY DRUG (Lactose-Reduced Food [Ensure Plus] 240 ML) PO SCH (21:00)
[2018-10-24 21:25] LABS: Glucose,Whole Blood 95 mg/dL (75-99)
[2018-10-24] MEDS: ATORVASTATIN 10 MG TAB PO SCH (22:08)
[2018-10-24] MEDS: METOPROLOL TARTRATE 25 MG TAB PO SCH (22:08)
[2018-10-24] MEDS: LORATADINE 10 MG TAB PO SCH (22:09)
[2018-10-24] MEDS: ACETAMINOPHEN TAB 325 MG TAB PO PRN (22:11)
[2018-10-24] MEDS: OXYBUTYNIN 10 MG TAB.ER.24 PO SCH (23:35)
[2018-10-24] MEDS: CARBIDOPA-LEVODOPA 25-100 MG 1 EACH TAB PO SCH (23:35)
[2018-10-24] MEDS: traZODone HCL 50 MG TAB PO SCH (23:35)
[2018-10-25] MEDS: SODIUM CHLORIDE 0.9% 1,000 ML IV SCH ×4 (02:53→23:39)
[2018-10-25] MEDS: LEVOTHYROXINE 137 MCG TAB PO SCH (05:14)
[2018-10-25] MEDS ORDERED: NON-FORMULARY DRUG (Lansoprazole [Lansoprazole] 30 MG) PO SCH (06:00)
[2018-10-25 07:19] LABS: Glucose,Whole Blood 164 mg/dL (75-99)
--- NOTE | 2018-10-25 07:58 | P.HPIM ---
History of Present Illness This is a pleasant 73 years old female with past medical history of congestive, atrial fibrillation, GERD, hyperlipidemia, hypertension, hypothyroidism, diabetes mellitus type 2, diabetic neuropathy, sarcoidosis, multiple drug ALLERGY, legally blind, ulcerative colitis, frequent falls. This time patient presents because of abdominal pain. Patient is not very good historian. She wasn't sure when the hospital but she stated she has abdominal pain in the right lower quadrant secondary to hematoma, which is evident on abdominal exam as right lower quadrant fluctuating swelling. Patient also has suprapubic tenderness and some epigastric tenderness but they are milder. She complains from cough and phlegm, patient not sure which covered his however patient states that is been going on every day as she has history of asthma. She denies dysuria or change in frequency however she has suprapubic tenderness. In the emergency room, vitals were stable, she is saturating 95% on 2 L oxygen. WBC 3.4K, hemoglobin 10.9. Platelets 112. Sodium 133. Creatinine 1.08. Potassium 4.5. Liver enzymes mildly elevated. Urinalysis is suspicious for infection. CT of the abdomen and pelvis with IV contrast showing bilateral pleural effusion, left more than right with possible underlying infiltrate. Urine culture and sputum cultures are ordered. Review of Systems CONSTITUTIONAL: No fever, no malaise, no fatigue. HEENT: No recent visual problems or hearing problems. Denied any sore throat. CARDIOVASCULAR: No orthopnea, PND, no palpitations, no syncope. PULMONARY: No shortness of breath, no cough, no hemoptysis. GASTROINTESTINAL: No diarrhea, no nausea, no vomiting, no abdominal pain. Normoactive bowel sounds. NEUROLOGICAL: No headaches, no weakness, no numbness. HEMATOLOGICAL: Denies any bleeding or petechiae. GENITOURINARY: Denies any burning micturition, frequency, or urgency. MUSCULOSKELETAL/RHEUMATOLOGICAL: Denies any joint pain, swelling, or any muscle pain. ENDOCRINE: Denies any polyuria or polydipsia. 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, multiple drug allergies - some reactions severe, parkinsons, short term memory problems at times, L eye ocular stroke-legally blind, macular degeneration bilaterally, hypothyroid, DJD, DDD, several past fractures d/t falls, frequent falls, gait dysfunction, IBS, ulcerative colitis, acute renal failure, UTIs, 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incont of urien -has idc that was changed in er 10-24-18 History of Any Multi-Drug Resistant Organisms: VRE Date of last positivie culture/infection: 08/18/13 [facility] MDRO Source:: Urine Past Surgical History: Appendectomy, Breast Surgery, Section, Cholecystectomy, Hysterectomy, Orthopedic Surgery Additional Past Surgical History / Comment(s): Debridements R lower leg, L side tongue benign lesion, 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 Smoking Status: Never smoker Past Alcohol Use History: None Reported Additional Past Alcohol Use History / Comment(s): Patient is a lifelong nonsmoker. She denies any medical marijuana, marijuana, street drug or alcohol use at this time. Patient does have a history of heavy alcohol use and quit 12 years ago. She is currently on Social Security. She is currently at [facility] for rehab r/t falls/weakness. pt stated she is not ambulatory. Past Drug Use History: None Reported - Past Family History Father Family Medical History: Cancer, Prostate Disorder Additional Family Medical History / Comment(s): PROSTATE CA, HERNIA SX BACK SX Mother Family Medical History: Cancer Additional Family Medical History / Comment(s): Mother is . Mother had lung cancer. She was a smoker. Medications and Allergies Home Medications Medication Instructions Recorded Confirmed Type Carbidopa-Levodopa 25-100 mg 1 tab PO TID 01/15/16 10/24/18 History [Sinemet 25-100 mg] Levothyroxine Sodium 137 mcg PO DAILY@0600 04/28/18 10/24/18 History Multivitamins, Thera [Multivitamin 1 tab PO DAILY@1700 04/28/18 10/24/18 History (formulary)] Amiodarone HCl [Pacerone] 200 mg PO DAILY 08/09/18 10/24/18 History Atorvastatin Calcium [Lipitor] 10 mg PO HS@2100 08/09/18 10/24/18 History Calcium Carb/Vitamin D3/Vit K1 1 tab PO DAILY@1700 08/09/18 10/24/18 History [Citracal Soft Chew] Docusate [Colace] 100 mg PO BID PRN 08/09/18 10/24/18 History Ergocalciferol [Vitamin D2 50,000 unit PO ROSA 08/09/18 10/24/18 History (DRISDOL)] Ferrous Sulfate [Iron] 325 mg PO BID@0800,1700 08/09/18 10/24/18 History Fluticasone/Salmeterol [Advair 1 inhalation PO RT-BID 08/09/18 10/24/18 History 500-50 Diskus] Lansoprazole 30 mg PO DAILY@0600 08/09/18 10/24/18 History Levocetirizine Dihydrochloride 5 mg PO HS 08/09/18 10/24/18 History [Xyzal] Primidone [Mysoline] 50 mg PO DAILY 08/09/18 10/24/18 History Thiamine HCl [Vitamin B-1] 100 mg PO DAILY@1700 08/09/18 10/24/18 History Tolterodine Tartrate [Detrol LA] 4 mg PO HS@2100 08/09/18 10/24/18 History Venlafaxine HCl ER [Effexor XR] 75 mg PO DAILY 08/09/18 10/24/18 History Vit C/E/Zn/Coppr/Lutein/Zeaxan 1 tab PO DAILY 08/09/18 10/24/18 History [Preservision Areds 2 Softgel] Bisacodyl [Dulcolax] 10 mg RECTAL DAILY PRN 09/12/18 10/24/18 History Folic Acid 1 mg PO DAILY@1700 09/12/18 10/24/18 History INSULIN LISPRO (HumaLOG) [humaLOG] See Protocol SQ HS 09/12/18 10/24/18 History Magnesium Hydroxide [Milk of 2,400 mg PO DAILY PRN 09/12/18 10/24/18 History Magnesia] Acetaminophen Tab [Tylenol] 650 mg PO Q6HR PRN tab 09/23/18 10/24/18 Rx Metoprolol Tartrate [Lopressor] 25 mg PO BID tab 09/23/18 10/24/18 Rx Tetrahydrozoline 0.05% Ophth 1 drops BOTH EYES TID PRN ml 09/23/18 10/24/18 Rx [Visine Eye Drops] amLODIPine [Norvasc] 5 mg PO DAILY tab 09/23/18 10/24/18 Rx Ammonium Lactate Lotion 1 applic TOPICAL DAILY 10/24/18 10/24/18 History [Lac-Hydrin 12% Lotion] Apixaban [Eliquis] 5 mg PO BID@0800,1700 10/24/18 10/24/18 History Furosemide [Lasix] 40 mg PO DAILY@1400 10/24/18 10/24/18 History Furosemide [Lasix] 80 mg PO DAILY 10/24/18 10/24/18 History INSULIN LISPRO (HumaLOG) [HumaLOG] See Protocol SQ AC-TID 10/24/18 10/24/18 History Insulin Detemir [Levemir] 5 unit SQ QAM 10/24/18 10/24/18 History Ipratropium-Albuterol Nebulize 3 ml INHALATION RT-BID 10/24/18 10/24/18 History [Duoneb 0.5 mg-3 mg/3 ml Soln] Ipratropium-Albuterol Nebulize 3 ml INHALATION RT-QID PRN 10/24/18 10/24/18 History [Duoneb 0.5 mg-3 mg/3 ml Soln] Lactose-Reduced Food [Ensure Plus] 240 ml PO TID@0800,1700,2100 10/24/18 History Magnesium Oxide [Mag-Ox] 400 mg PO DAILY 10/24/18 10/24/18 History Melatonin 1 mg PO HS PRN 10/24/18 10/24/18 History Menthol [Biofreeze] 1 applic TOPICAL QID PRN 10/24/18 10/24/18 History Na Phos,M-B/Na Phos,Di-Ba [Fleet 133 ml RECTAL DAILY PRN 10/24/18 10/24/18 History Adult] Potassium Chloride [Klor-Con 20] 20 meq PO DAILY 10/24/18 10/24/18 History Teriparatide [Forteo] 20 mcg SQ DAILY 10/24/18 10/24/18 History traZODone HCL 50 mg PO HS 10/24/18 10/24/18 History Allergies Allergy/AdvReac Type Severity Reaction Status Date / Time cefdinir Allergy Severe Swelling Verified 10/24/18 14:05 Cephalosporins Allergy Unknown Verified 10/24/18 14:05 codeine Allergy Unknown Verified 10/24/18 14:05 doxycycline Allergy Nausea & Verified 10/24/18 14:05 Vomiting erythromycin base Allergy Nausea & Verified 10/24/18 14:05 Vomiting & Diarrhea/RASH Penicillins Allergy Rash/Hives Verified 10/24/18 14:05 trimethoprim [From Bactrim] Allergy Unknown Verified 10/24/18 14:05 azithromycin AdvReac Nausea & Verified 10/24/18 14:05 Vomiting hydrochlorothiazide AdvReac Nausea & Verified 10/24/18 14:05 [From Dyazide] Vomiting levofloxacin [From Levaquin] AdvReac Abdominal Verified 10/24/18 14:05 Pain moxifloxacin HCl AdvReac Unknown Verified 10/24/18 14:05 [From Avelox] sulfamethoxazole AdvReac Nausea & Verified 10/24/18 14:05 [From Bactrim] Vomiting & Diarrhea triamterene [From Dyazide] AdvReac Nausea & Verified 10/24/18 14:05 Vomiting Physical Exam Vitals: Vital Signs Temp Pulse Pulse Resp BP BP Pulse Ox 10/25/18 06:22 97.8 F 54 L 16 123/68 95 10/24/18 23:00 98.1 F 62 17 146/72 99 10/24/18 19:04 98 F 55 L 18 107/55 100 10/24/18 17:16 97.5 F L 55 L 18 117/51 100 10/24/18 15:08 54 L 18 118/50 98 10/24/18 13:36 98 F 53 L 18 120/103 100 Intake and Output 10/24/18 10/25/18 10/25/18 22:59 06:59 14:59 Intake Total 1020 600 Output Total 100 600 Balance 920 0 Intake: Intake, IV Titration 600 600 Amount Sodium Chloride 0.9% 1, 600 600 000 ml @ 100 mls/hr IV . Q10H [facility] Rx#:[id number] Oral 420 Output: Urine 100 600 Straight 100 600 GENERAL: The patient is alert and oriented x3, not in any acute distress. Well developed, well nourished. HEENT: Pupils are round and equally reacting to light. EOMI. No scleral icterus. No conjunctival pallor. Normocephalic, atraumatic. No pharyngeal erythema. No thyromegaly. CARDIOVASCULAR: S1 and S2 present. No murmurs, rubs, or gallops. PULMONARY: Chest is clear to auscultation, no wheezing or crackles. ABDOMEN: Soft, nontender, nondistended, normoactive bowel sounds. No palpable organomegaly. MUSCULOSKELETAL: No joint swelling or deformity. EXTREMITIES: No cyanosis, clubbing, or pedal edema. NEUROLOGICAL: Gross neurological examination did not reveal any focal deficits. SKIN: No rashes. Results CBC & Chem 7: 10/24/18 14:05 10/24/18 14:05 Labs: Abnormal Lab Results - Last 24 Hours (Table) 10/24/18 10/24/18 10/24/18 Range/Units 14:05 14:05 15:02 WBC 3.4 L (3.8-10.6) k/uL RBC 3.32 L (3.80-5.40) m/uL Hgb 10.9 L D (11.4-16.0) gm/dL Hct 33.2 L (34.0-46.0) % Plt Count 112 L (150-450) k/uL Lymphocytes # 0.4 L (1.0-4.8) k/uL Sodium 133 L (137-145) mmol/L Chloride 90 L (98-107) mmol/L Carbon Dioxide 38 H (22-30) mmol/L BUN 37 H (7-17) mg/dL Creatinine 1.08 H (0.52-1.04) mg/dL Glucose 143 H (74-99) mg/dL POC Glucose (mg/dL) (75-99) mg/dL AST 48 H (14-36) U/L Total Protein 5.7 L (6.3-8.2) g/dL Albumin 2.9 L (3.5-5.0) g/dL Amylase <30 L (30-110) U/L Lipase 16 L (23-300) U/L Urine Appearance Cloudy H (Clear) Urine pH 8.5 H (5.0-8.0) Urine Protein Trace H (Negative) Urine Blood Small H (Negative) Ur Leukocyte Esterase Large H (Negative) Urine RBC (0-5) /hpf Urine WBC 72 H (0-5) /hpf Urine WBC Clumps (None) /hpf Urine Bacteria (None) /hpf Urine Mucus Rare H (None) /hpf 10/24/18 10/25/18 Range/Units 18:10 07:17 WBC (3.8-10.6) k/uL RBC (3.80-5.40) m/uL Hgb (11.4-16.0) gm/dL Hct (34.0-46.0) % Plt Count (150-450) k/uL Lymphocytes # (1.0-4.8) k/uL Sodium (137-145) mmol/L Chloride (98-107) mmol/L Carbon Dioxide (22-30) mmol/L BUN (7-17) mg/dL Creatinine (0.52-1.04) mg/dL Glucose (74-99) mg/dL POC Glucose (mg/dL) 164 H (75-99) mg/dL AST (14-36) U/L Total Protein (6.3-8.2) g/dL Albumin (3.5-5.0) g/dL Amylase (30-110) U/L Lipase (23-300) U/L Urine Appearance Cloudy H (Clear) Urine pH (5.0-8.0) Urine Protein (Negative) Urine Blood Trace H (Negative) Ur Leukocyte Esterase Large H (Negative) Urine RBC 6 H (0-5) /hpf Urine WBC 124 H (0-5) /hpf Urine WBC Clumps Few H (None) /hpf Urine Bacteria Rare H (None) /hpf Urine Mucus Rare H (None) /hpf Microbiology - Last 24 Hours (Table) 10/24/18 18:10 Urine Culture - Preliminary Urine,Catheterized Thrombosis Risk Factor Assmnt - Choose All That Apply Any of the Below Risk Factors Present?: No Other Risk Factors: Yes Each Risk Factor Represents 3 Points: Age 75 years or older Other congenital or acquired thrombophilia - If yes, enter type in comment: No Thrombosis Risk Factor Assessment Total Risk Factor Score: 3 Thrombosis Risk Factor Assessment Level: Moderate Risk Assessment and Plan Assessment: Abdominal pain, mostly related to proctocolitis. Possible pneumonia with bilateral pleural effusion Urinary tract infection Possible cirrhosis of the liver with portal hypertension Abdominal wall hematoma measuring 8.7 x 5.1 x 4.7 centimeters History of congestive heart failure History of atrial fibrillation, rate control. Not on anticoagulation History of GERD Hyperlipidemia Essential hypertension History of hypothyroidism Diabetes mellitus, type II Diabetic neuropathy History of sarcoidosis History of multiple drug ALLERGIES Patient is legally blind History of ulcerative colitis History of frequent falls Plan: This is a pleasant 73 years old female who presents with proctocolitis and abdominal wall hematoma, possible sepsis and continue with antibiotics. We'll check for C. diff. Labs and medication were reviewed.. Continue same treatment. Continue with symptomatic treatment. Resume home medication. Monitor lytes and vitals. DVT and GI prophylaxis. Further recommendations of the clinical course of the patient DVT prophylaxis: no heparin for now in view of pt hematoma GI Prophylaxis: Pepcid PT/OT: Pending Prognosis is guarded
[2018-10-25] MEDS ORDERED: FAMOTIDINE 20 MG/2 ML VIAL IV SCH (09:00)
[2018-10-25] MEDS: IPRATROPIUM-ALBUTEROL 3 ML NEB INHALATION SCH ×2 (09:32→21:13)
[2018-10-25] MEDS: SYMBICORT 160-4.5 MCG INHALER INHALATION SCH ×2 (09:32→21:13)
[2018-10-25] MEDS: CARBIDOPA-LEVODOPA 25-100 MG 1 EACH TAB PO SCH ×3 (09:45→21:05)
[2018-10-25] MEDS: metroNIDAZOLE-NS PMX 500 MG in SALINE 1 100ML.BAG IVPB SCH ×3 (09:45→23:37)
[2018-10-25] MEDS: AMMONIUM LACTATE 12% LOTION 225 GM BTL TOPICAL SCH (09:46)
[2018-10-25] MEDS: amLODIPine 5 MG TAB PO SCH (09:46)
[2018-10-25] MEDS: AMIODARONE 200 MG TAB PO SCH (09:46)
[2018-10-25] MEDS: METOPROLOL TARTRATE 25 MG TAB PO SCH ×2 (09:48→21:04)
[2018-10-25] MEDS: FUROSEMIDE 80 MG TAB PO SCH (09:48)
[2018-10-25] MEDS: MAGNESIUM OXIDE 400 MG TAB PO SCH (09:48)
[2018-10-25] MEDS: INSULIN DETEMIR (LEVEMIR) 100 UNIT/ML SYR SQ SCH (09:48)
[2018-10-25] MEDS: FERROUS SULFATE 325 MG TAB PO SCH ×2 (09:48→16:08)
[2018-10-25] MEDS: PANTOPRAZOLE 40 MG/10 ML VIAL IV SCH (09:48)
[2018-10-25] MEDS: VENLAFAXINE HCL ER 75 MG CAP PO SCH (09:49)
[2018-10-25] MEDS: NON-FORMULARY DRUG (Teriparatide [Forteo] 20 MCG) SQ SCH (09:49)
[2018-10-25] MEDS: PRIMIDONE 50 MG TAB PO SCH (09:49)
[2018-10-25] MEDS: POTASSIUM CHLORIDE ER 20 MEQ TAB.ER PO SCH (09:49)
[2018-10-25] MEDS: VIT A,C & E-LUTEIN-MINERALS 1 EACH TAB PO SCH (09:50)
[2018-10-25] MEDS: AZTREONAM 1 GM in SODIUM CHLORIDE 0.9% 50 ML IVPB SCH ×2 (10:57→21:05)
[2018-10-25 12:13] LABS: Glucose,Whole Blood 207 mg/dL (75-99)
[2018-10-25] MEDS: ONDANSETRON 4 MG/2 ML VIAL IVP PRN (12:21)
[2018-10-25] MEDS: IPRATROPIUM-ALBUTEROL 3 ML NEB INHALATION PRN ×2 (12:38→17:48)
[2018-10-25] MEDS ORDERED: FUROSEMIDE 40 MG TAB PO SCH (14:00)
--- NOTE | 2018-10-25 14:11 | CDI ---
Documentation Clarification Form Date: 10/25/2018 1:56:34 PM From: Tiffani Crenshaw RN CCDS Admit Date: 10/24/2018 5:42:00 PM Patient Name: Soledad Chou Visit Number: [id number] Discharge Date: ATTENTION: The Clinical Documentation Specialists (CDI) and [facility] Coding Staff appreciate your assistance in clarifying documentation. Please respond to the clarification below the line at the bottom and electronically sign. The CDI & [facility] Coding staff will review the response and follow-up if needed. Please note: Queries are made part of the Legal Health Record. If you have any questions, please contact the author of this message via ITS. Dr. Toney Rodrigez UTI was documented in the [facility] History/Risk Factors: 73 yr old female presents to the ED via EMS form [facility] for abdominal pain and a mass over her abdomen. Clinical Indicators: Per the ED report " She also has a retaining gibbs catheter at this time due to concern for frequent falls and inability to ambulate to the bathroom well. Vital Signs: 120/103 53 98.0 100% 4L 20 WBC:3.4 Urinalysis: Cloudy Large leukocytes esterase, rare mucus, wbc 72, ph 8.5, Urine Culture: pending Treatment Catheter exchange. Antibiotics Aztreonam ivpb Flagyl ivpb Please document the condition that these clinical indicators signify, whether Present on Admission, and cause if known: UTI secondary to indwelling gibbs catheter poa. Other, please specify Unable to determine (Last Revision: June 2017) Dx: UTI secondary to indwelling gibbs catheter poa. MTDD
[2018-10-25] MEDS: CALCIUM CARB-VIT D 500MG-200UN 1 EACH TAB PO SCH (16:08)
[2018-10-25] MEDS: ACETAMINOPHEN TAB 325 MG TAB PO PRN ×2 (16:08→21:11)
[2018-10-25] MEDS ORDERED: FOLIC ACID 1 MG TAB PO SCH (17:00)
[2018-10-25] MEDS ORDERED: THIAMINE 100 MG TAB PO SCH (17:00)
[2018-10-25] MEDS ORDERED: MULTIVITAMINS, THERA 1 EACH TAB PO SCH (17:00)
[2018-10-25 17:40] LABS: Glucose,Whole Blood 187 mg/dL (75-99)
[2018-10-25 20:27] LABS: Glucose,Whole Blood 139 mg/dL (75-99)
[2018-10-25] MEDS: traZODone HCL 50 MG TAB PO SCH (21:05)
[2018-10-25] MEDS: ATORVASTATIN 10 MG TAB PO SCH (21:05)
[2018-10-25] MEDS: LORATADINE 10 MG TAB PO SCH (21:05)
[2018-10-25] MEDS: OXYBUTYNIN 10 MG TAB.ER.24 PO SCH (21:05)
--- NOTE | 2018-10-25 21:37 | P.CONS ---
History of Present Illness - Reason for Consult Consult date: 10/25/18 Colitis Requesting physician: Toney E Sheet - History of Present Illness The patient is a 73-year-old female with past medical history significant for congestive heart failure, atrial fibrillation, GERD, hyperlipidemia, hypertension, hypothyroidism, diabetes mellitus and sarcoidosis who presented to the hospital with complaints of abdominal pain. The patient has a palpable mass on her right lower quadrant which she reports is extremely painful to the touch and with movement. Of note patient is a poor historian and history is been taken in conversation with her and in combination of review of the electronic medical record and with discussion with the nursing staff. The patient denies any change in bowel habits in association with the abdominal pain. She reports normal bowel movements every other day with no increase in frequency, diarrhea, constipation, hematochezia or melena. On presentation to the hospital the patient was found to have a normal amylase and lipase. WBC 3.4 , hemoglobin 10.9 and platelets 112,000. CT of the abdomen was significant for a hematoma of the right external oblique muscle as well as note of perirectal stranding suggestive of colitis. Review of Systems REVIEW OF SYSTEMS: CONSTITUTIONAL: Denies any fevers, chills, weight change or fatigue. CARDIOVASCULAR: Denies any chest pain, palpitations high or low blood pressures RESPIRATORY: Denies any shortness of breath, hemoptysis or cough. GENITOURINARY: No dysuria or hematuria, indwelling Smith catheter present. MUSCULOSKELETAL: No weakness reported. SKIN: Denies any new rashes or lesions, jaundice or pallor. PSYCHIATRIC: Denies any depression or anxiety. NEUROLOGY: Denies headache, denies any new focal deficits. EARS/NOSE/THROAT: No recent hearing change, congestion, nasal discharge or sore throat. EYES: No pain in eyes, discharge or change in vision, blind in her left eye. GASTROINTESTINAL: As per HPI. 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, multiple drug allergies - some reactions severe, parkinsons, short term memory problems at times, L eye ocular stroke-legally blind, macular degeneration bilaterally, hypothyroid, DJD, DDD, several past fractures d/t falls, frequent falls, gait dysfunction, IBS, ulcerative colitis, acute renal failure, UTIs, 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incont of urien -has idc that was changed in er 10-24-18 History of Any Multi-Drug Resistant Organisms: VRE Year Discovered:: 08/18/13 [facility] MDRO Source:: Urine Past Surgical History: Appendectomy, Breast Surgery, Section, Cholecystectomy, Hysterectomy, Orthopedic Surgery Additional Past Surgical History / Comment(s): Debridements R lower leg, L side tongue benign lesion, 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 Smoking Status: Never smoker Past Alcohol Use History: None Reported Additional Past Alcohol Use History / Comment(s): Patient is a lifelong nonsmoker. She denies any medical marijuana, marijuana, street drug or alcohol use at this time. Patient does have a history of heavy alcohol use and quit 12 years ago. She is currently on Social Security. She is currently at [facility] for rehab r/t falls/weakness. pt stated she is not ambulatory. Past Drug Use History: None Reported - Past Family History Father Family Medical History: Cancer, Prostate Disorder Additional Family Medical History / Comment(s): PROSTATE CA, HERNIA SX BACK SX Mother Family Medical History: Cancer Additional Family Medical History / Comment(s): Mother is . Mother had lung cancer. She was a smoker. Medications and Allergies Home Medications Medication Instructions Recorded Confirmed Type Carbidopa-Levodopa 25-100 mg 1 tab PO TID 01/15/16 10/24/18 History [Sinemet 25-100 mg] Levothyroxine Sodium 137 mcg PO DAILY@0600 04/28/18 10/24/18 History Multivitamins, Thera [Multivitamin 1 tab PO DAILY@1700 04/28/18 10/24/18 History (formulary)] Amiodarone HCl [Pacerone] 200 mg PO DAILY 08/09/18 10/24/18 History Atorvastatin Calcium [Lipitor] 10 mg PO HS@2100 08/09/18 10/24/18 History Calcium Carb/Vitamin D3/Vit K1 1 tab PO DAILY@1700 08/09/18 10/24/18 History [Citracal Soft Chew] Docusate [Colace] 100 mg PO BID PRN 08/09/18 10/24/18 History Ergocalciferol [Vitamin D2 50,000 unit PO ROSA 08/09/18 10/24/18 History (DRISDOL)] Ferrous Sulfate [Iron] 325 mg PO BID@0800,1700 08/09/18 10/24/18 History Fluticasone/Salmeterol [Advair 1 inhalation PO RT-BID 08/09/18 10/24/18 History 500-50 Diskus] Lansoprazole 30 mg PO DAILY@0600 08/09/18 10/24/18 History Levocetirizine Dihydrochloride 5 mg PO HS 08/09/18 10/24/18 History [Xyzal] Primidone [Mysoline] 50 mg PO DAILY 08/09/18 10/24/18 History Thiamine HCl [Vitamin B-1] 100 mg PO DAILY@1700 08/09/18 10/24/18 History Tolterodine Tartrate [Detrol LA] 4 mg PO HS@2100 08/09/18 10/24/18 History Venlafaxine HCl ER [Effexor XR] 75 mg PO DAILY 08/09/18 10/24/18 History Vit C/E/Zn/Coppr/Lutein/Zeaxan 1 tab PO DAILY 08/09/18 10/24/18 History [Preservision Areds 2 Softgel] Bisacodyl [Dulcolax] 10 mg RECTAL DAILY PRN 09/12/18 10/24/18 History Folic Acid 1 mg PO DAILY@1700 09/12/18 10/24/18 History INSULIN LISPRO (HumaLOG) [humaLOG] See Protocol SQ HS 09/12/18 10/24/18 History Magnesium Hydroxide [Milk of 2,400 mg PO DAILY PRN 09/12/18 10/24/18 History Magnesia] Acetaminophen Tab [Tylenol] 650 mg PO Q6HR PRN tab 09/23/18 10/24/18 Rx Metoprolol Tartrate [Lopressor] 25 mg PO BID tab 09/23/18 10/24/18 Rx Tetrahydrozoline 0.05% Ophth 1 drops BOTH EYES TID PRN ml 09/23/18 10/24/18 Rx [Visine Eye Drops] amLODIPine [Norvasc] 5 mg PO DAILY tab 09/23/18 10/24/18 Rx Ammonium Lactate Lotion 1 applic TOPICAL DAILY 10/24/18 10/24/18 History [Lac-Hydrin 12% Lotion] Apixaban [Eliquis] 5 mg PO BID@0800,1700 10/24/18 10/24/18 History Furosemide [Lasix] 40 mg PO DAILY@1400 10/24/18 10/24/18 History Furosemide [Lasix] 80 mg PO DAILY 10/24/18 10/24/18 History INSULIN LISPRO (HumaLOG) [HumaLOG] See Protocol SQ AC-TID 10/24/18 10/24/18 History Insulin Detemir [Levemir] 5 unit SQ QAM 10/24/18 10/24/18 History Ipratropium-Albuterol Nebulize 3 ml INHALATION RT-BID 10/24/18 10/24/18 History [Duoneb 0.5 mg-3 mg/3 ml Soln] Ipratropium-Albuterol Nebulize 3 ml INHALATION RT-QID PRN 10/24/18 10/24/18 History [Duoneb 0.5 mg-3 mg/3 ml Soln] Lactose-Reduced Food [Ensure Plus] 240 ml PO TID@0800,1700,2100 10/24/18 History Magnesium Oxide [Mag-Ox] 400 mg PO DAILY 10/24/18 10/24/18 History Melatonin 1 mg PO HS PRN 10/24/18 10/24/18 History Menthol [Biofreeze] 1 applic TOPICAL QID PRN 10/24/18 10/24/18 History Na Phos,M-B/Na Phos,Di-Ba [Fleet 133 ml RECTAL DAILY PRN 10/24/18 10/24/18 History Adult] Potassium Chloride [Klor-Con 20] 20 meq PO DAILY 10/24/18 10/24/18 History Teriparatide [Forteo] 20 mcg SQ DAILY 10/24/18 10/24/18 History traZODone HCL 50 mg PO HS 10/24/18 10/24/18 History Allergies Allergy/AdvReac Type Severity Reaction Status Date / Time cefdinir Allergy Severe Swelling Verified 10/24/18 14:05 Cephalosporins Allergy Unknown Verified 10/24/18 14:05 codeine Allergy Unknown Verified 10/24/18 14:05 doxycycline Allergy Nausea & Verified 10/24/18 14:05 Vomiting erythromycin base Allergy Nausea & Verified 10/24/18 14:05 Vomiting & Diarrhea/RASH Penicillins Allergy Rash/Hives Verified 10/24/18 14:05 trimethoprim [From Bactrim] Allergy Unknown Verified 10/24/18 14:05 azithromycin AdvReac Nausea & Verified 10/24/18 14:05 Vomiting hydrochlorothiazide AdvReac Nausea & Verified 10/24/18 14:05 [From Dyazide] Vomiting levofloxacin [From Levaquin] AdvReac Abdominal Verified 10/24/18 14:05 Pain moxifloxacin HCl AdvReac Unknown Verified 10/24/18 14:05 [From Avelox] sulfamethoxazole AdvReac Nausea & Verified 10/24/18 14:05 [From Bactrim] Vomiting & Diarrhea triamterene [From Dyazide] AdvReac Nausea & Verified 10/24/18 14:05 Vomiting Physical Exam Vitals: Vital Signs Temp Pulse Pulse Resp BP Pulse Ox 10/25/18 21:13 78 10/25/18 20:52 98.3 F 56 L 20 114/54 94 L 10/25/18 17:48 84 10/25/18 13:15 98.2 F 56 L 18 121/57 97 10/25/18 12:48 88 10/25/18 12:40 88 10/25/18 09:49 88 10/25/18 09:35 80 10/25/18 06:22 97.8 F 54 L 16 123/68 95 10/24/18 23:00 98.1 F 62 17 146/72 99 Intake and Output 10/25/18 10/25/18 10/25/18 06:59 14:59 22:59 Intake Total 600 950 Output Total 600 Balance 0 950 Intake: Intake, IV Titration 600 950 Amount Aztreonam 1 gm In Sodium 50 Chloride 0.9% 50 ml @ 100 mls/hr IVPB Q12HR [facility] Rx #:[id number] Sodium Chloride 0.9% 1, 600 800 000 ml @ 100 mls/hr IV . Q10H [facility] Rx#:[id number] metroNIDAZOLE-NS PMX 500 100 mg In Saline 1 100ml.bag @ 100 mls/hr IVPB Q8HR [facility] Rx#:[id number] Output: Urine 600 Straight 600 Other: Voiding Method Indwelling Catheter Weight 61.689 kg On physical examination, patient appears comfortable in no apparent distress. HEAD: Normocephalic, atraumatic. EYES: No scleral icterus. No conjunctival injection. MOUTH: No lesions, tongue midline. NECK: Trachea midline, no gross abnormalities. CHEST: Decreased air entry in all lung douglas. HEART: S1-S2 appreciated. ABDOMEN: Soft, obese. Bowel sounds are positive. No organomegaly. No guarding or rigidity. Hematoma palpable in the right lower quadrant of the abdomen which is tender to palpation. EXTREMITIES: Mild pedal edema. SKIN: Right lower extremity wrapped, no jaundice. NEUROLOGIC: Alert and oriented. Results CBC & Chem 7: 10/24/18 14:05 10/24/18 14:05 Labs: Abnormal Lab Results - Last 24 Hours (Table) 10/25/18 10/25/18 10/25/18 Range/Units 07:17 12:11 17:39 POC Glucose (mg/dL) 164 H 207 H 187 H (75-99) mg/dL 10/25/18 Range/Units 20:25 POC Glucose (mg/dL) 139 H (75-99) mg/dL Microbiology - Last 24 Hours (Table) 10/24/18 18:10 Urine Culture - Preliminary Urine,Catheterized CT scan - abdomen: report reviewed (CT of the abdomen was significant for a hematoma of the right external oblique muscle as well as note of perirectal stranding suggestive of colitis.) Assessment and Plan (1) Colitis Narrative/Plan: Patient denying any change in bowel habits, diarrhea, constipation, hematochezia or melena but was found to have perirectal thickening on computed tomography scan of the abdomen. Currently she is receiving antibiotic treatment. Current Visit: Yes Status: Acute Code(s): K52.9 - NONINFECTIVE GASTROENTERITIS AND COLITIS, UNSPECIFIED SNOMED Code(s): 92272458 (2) Abdominal hematoma Current Visit: Yes Status: Acute Code(s): S30.1XXA - CONTUSION OF ABDOMINAL WALL, INITIAL ENCOUNTER SNOMED Code(s): 942521277 Plan: Supportive care Okay for diet Monitor stool output Continue antibiotic therapy, currently receiving aztreonam and Flagyl Patient unclear about the exact date of last colonoscopy, however given findings of colitis on computed tomography scan would recommend repeat endoscopy in 4-6 weeks after completion of antibiotic therapy Thank you for allowing us to participate in the care of this patient we will continue to follow
[2018-10-26] MEDS: LEVOTHYROXINE 137 MCG TAB PO SCH (05:41)
[2018-10-26 07:05] LABS: Glucose,Whole Blood 164 mg/dL (75-99)
[2018-10-26 07:24] LABS: Basophils % (A) 1 %; Eosinophils # (A) 0.2 k/uL (0-0.7); Eosinophils % (A) 3 %; HCT 21.5 % (34.0-46.0); Lymphocytes # (A) 0.9 k/uL (1.0-4.8); Lymphocytes % (A) 13 %; MCH 33.9 pg (25.0-35.0); MCV 99.7 fL (80.0-100.0); Monocytes # (A) 0.5 k/uL (0-1.0); Monocytes % (A) 8 %; Neutrophils # (A) 4.7 k/uL (1.3-7.7); Neutrophils % (A) 73 %; RBC 2.16 m/uL (3.80-5.40); RDW 14.1 % (11.5-15.5); WBC 6.4 k/uL (3.8-10.6)
[2018-10-26 07:31] LABS: HGB 7.3 gm/dL (11.4-16.0)
[2018-10-26 07:32] LABS: Platelet Count 187 k/uL (150-450)
[2018-10-26] MEDS: metroNIDAZOLE-NS PMX 500 MG in SALINE 1 100ML.BAG IVPB SCH ×3 (08:08→23:53)
[2018-10-26] MEDS: IPRATROPIUM-ALBUTEROL 3 ML NEB INHALATION SCH ×2 (08:49→20:43)
[2018-10-26] MEDS: SYMBICORT 160-4.5 MCG INHALER INHALATION SCH ×2 (08:49→20:43)
[2018-10-26] MEDS ORDERED: FAMOTIDINE 20 MG TAB PO SCH (09:00)
[2018-10-26] MEDS: CARBIDOPA-LEVODOPA 25-100 MG 1 EACH TAB PO SCH ×3 (09:03→21:39)
[2018-10-26] MEDS: AMIODARONE 200 MG TAB PO SCH (09:03)
[2018-10-26] MEDS: amLODIPine 5 MG TAB PO SCH (09:04)
[2018-10-26] MEDS: FERROUS SULFATE 325 MG TAB PO SCH ×2 (09:04→17:44)
[2018-10-26] MEDS: FUROSEMIDE 80 MG TAB PO SCH (09:05)
[2018-10-26] MEDS: INSULIN DETEMIR (LEVEMIR) 100 UNIT/ML SYR SQ SCH (09:05)
[2018-10-26] MEDS: MAGNESIUM OXIDE 400 MG TAB PO SCH (09:06)
[2018-10-26] MEDS: POTASSIUM CHLORIDE ER 20 MEQ TAB.ER PO SCH (09:06)
[2018-10-26] MEDS: METOPROLOL TARTRATE 25 MG TAB PO SCH (09:06)
[2018-10-26] MEDS: PRIMIDONE 50 MG TAB PO SCH (09:06)
[2018-10-26] MEDS: VIT A,C & E-LUTEIN-MINERALS 1 EACH TAB PO SCH (09:07)
[2018-10-26] MEDS: VENLAFAXINE HCL ER 75 MG CAP PO SCH (09:07)
[2018-10-26 09:10] LABS: Calcium 8.3 mg/dL (8.4-10.2); Potassium 5.6 mmol/L (3.5-5.1)
[2018-10-26] MEDS: AMMONIUM LACTATE 12% LOTION 225 GM BTL TOPICAL SCH (09:11)
[2018-10-26] MEDS: NON-FORMULARY DRUG (Teriparatide [Forteo] 20 MCG) SQ SCH (09:13)
[2018-10-26] MEDS: SODIUM CHLORIDE 0.9% 1,000 ML IV SCH ×3 (09:19→22:10)
--- NOTE | 2018-10-26 09:40 | CONS ---
CONSULTATION DATE OF SERVICE: 10/25/2018 REASON FOR CONSULTATION: Sepsis and colitis. HISTORY OF PRESENT ILLNESS: The patient is a 73-year-old female who recently had been in this facility in September of 2018. At that time, the patient did have evidence of MSSA bacteremia which was thought to be secondary to . Patient did not have any open wound at that time. UA was positive. Cultures were negative. She did get a PICC line and had received vancomycin therapy. PICC line has not been discontinued, still has a PICC line. The patient has now been brought to the ER at [facility] with possible concern for abdominal pain and swelling in the right lower quadrant abdominal area which the patient seemed to have for quite some time; however, the patient describes the pain for dull aching pain with no significant radiation. Patient felt nauseated, but no vomiting and denies having any diarrhea. With these symptoms, the patient was evaluated by the ER physician. On arrival to the ER, the patient's white count was 3.4. Blood culture has been obtained. The patient did have a CT of abdomen and pelvis which shows hematoma noted at the level of the right external oblique muscle 8.7 x 5.1 x 4.7 cm. Perirectal stranding noted, which may reflect proctocolitis. The patient was started on Azactam and Flagyl. Infectious Disease was consulted for further recommendation regarding antibiotic therapy. The patient also overall is not a very good historian so most of the information has been extracted from review of the chart and talking to the nursing staff. REVIEW OF SYSTEMS: Could not be taken, positive points have been mentioned in HPI. PAST MEDICAL HISTORY: Atrial fibrillation, asthma, heart failure, COPD, diabetes mellitus, gastroesophageal reflux disease, hypertension, hyperlipidemia, hypothyroidism, MSSA bacteremia. PAST SURGICAL HISTORY: Appendectomy, breast surgery, , cholecystectomy, hysterectomy, debridement of the wounds. SOCIAL HISTORY: No history of smoking, drinking, or drug use. FAMILY HISTORY: Father history of prostate cancer. Mother with history of colon cancer. ALLERGIES: Allergies to multiple medications include CEPHALOSPORIN, DOXYCYCLINE, ERYTHROMYCIN, PENICILLIN, AZITHROMYCIN, TRIMETHOPRIM. MEDICATIONS: Medications include the patient is currently on Tylenol, DuoNeb, amiodarone, Norvasc, Lipitor, Azactam 1 gram q.12, Dulcolax, iron sulfate, Lasix, Levemir, Claritin, Ativan, Mag oxide, Flagyl, Narcan, Zofran, Ditropan, K-Dur, Desyrel, and Effexor. PHYSICAL EXAMINATION: On examination, blood pressure 114/54 with a pulse of 78, temperature 98.3. No temperature or fever recorded. She is 94% on 2 L nasal cannula. General description is an elderly female lying in bed in no distress. No tachypnea or accessory muscle of respiration use. HEENT examination shows slight pallor. No scleral icterus. Oral mucous membrane is dry. No pharyngeal erythema or thrush. NECK: Trachea central. No thyromegaly. LUNGS: Unlabored breathing, decreased breath sounds at the bases. No wheeze or crackle. HEART: S1, S2. Regular rate and rhythm. ABDOMEN: Soft, mildly tender right lower quadrant. No rigidity. EXTREMITIES: No edema of feet. SKIN EXAMINATION: No rash or mass palpable. NEUROLOGICAL: The patient is awake, alert, oriented x3. Mood and affect normal. LABS: Urine was cloudy with large leukocyte esterases and 124 WBCs. Hemoglobin is 10.9, white count 3.4. BUN of 37, creatinine 1.08. DIAGNOSTIC IMPRESSION AND PLAN: 1. Patient admitted to the hospital with abdominal pain and the patient did have evidence of oblique muscle hematoma. This patient also has some perirectal stranding with question proctocolitis, question of ischemic versus infectious etiology. 2. Patient with multiple antibiotic allergies include to be safe to use. 3. Positive underlying urinary tract infection from enteric gram-negative pathogen. PLAN: 1. We will check stool for C difficile and stool culture. 2. Keep the patient on Azactam 1 gram q.12 and Flagyl which should cover for the infectious colitis versus UTI. 3. IV fluid. 4. We will follow up on clinical condition and culture to further adjust medication if needed. Thank you for this consultation. Will follow this patient along with you. MMODL / IJN: [id number] /
[2018-10-26] MEDS ORDERED: HUMAN PROTHROMBIN COMPLX 500 UNIT/16 ML VIAL IV ONE (09:49)
[2018-10-26] MEDS: AZTREONAM 1 GM in SODIUM CHLORIDE 0.9% 50 ML IVPB SCH ×2 (09:49→20:46)
[2018-10-26] MEDS: PANTOPRAZOLE 40 MG/10 ML VIAL IV SCH (09:50)
[2018-10-26] MEDS: ACETAMINOPHEN TAB 325 MG TAB PO PRN ×2 (09:50→22:13)
[2018-10-26] MEDS ORDERED: SODIUM POLYSTYRENE SULFONATE 15 GM/60 ML BOTTLE PO STA (11:04)
[2018-10-26 11:06] LABS: Glucose,Whole Blood 179 mg/dL (75-99)
--- NOTE | 2018-10-26 11:33 | P.PN ---
Subjective This is a pleasant 73 years old female with past medical history of congestive, atrial fibrillation, GERD, hyperlipidemia, hypertension, hypothyroidism, diabetes mellitus type 2, diabetic neuropathy, sarcoidosis, multiple drug ALLERGY, legally blind, ulcerative colitis, frequent falls. This time patient presents because of abdominal pain. Patient is not very good historian. She wasn't sure when the hospital but she stated she has abdominal pain in the right lower quadrant secondary to hematoma, which is evident on abdominal exam as right lower quadrant fluctuating swelling. Patient also has suprapubic tenderness and some epigastric tenderness but they are milder. She complains from cough and phlegm, patient not sure which covered his however patient states that is been going on every day as she has history of asthma. She denies dysuria or change in frequency however she has suprapubic tenderness. In the emergency room, vitals were stable, she is saturating 95% on 2 L oxygen. WBC 3.4K, hemoglobin 10.9. Platelets 112. Sodium 133. Creatinine 1.08. Potassium 4.5. Liver enzymes mildly elevated. Urinalysis is suspicious for infection. CT of the abdomen and pelvis with IV contrast showing bilateral pleural effusion, left more than right with possible underlying infiltrate. Urine culture and sputum cultures are ordered. 10/26/2018 Patient is more confused today and or difficult to wake up. She is developing acute renal failure with trending up creatinine from 1.0 to 1.6, her potassium is slightly elevated. And hemoglobin dropped from 10 down to 7.3. The hematoma mass on her lower anterior abdominal area it looks the same while it is demarcated however patient has new bruises on the right flank area. With call GI consult and transfuse 1 unit of blood. also add iron pills. Hold Lasix and potassium, give 1 dose of Kayexalate. And increase IV fluids.GI consult is appreciated and the recommend repeat colonoscopy in 4-6 weeks. patient likely has pneumonia as she has no respiratory symptoms. Review of system: N/a Medication: Tylenol, albuterol, amiodarone, Lipitor, aztreonam, Symbicort, calcium, Sinemet, Colace, vitamin D, iron pill,Levemir insulin, Synthroid, Ativan, milk of magnesia, Lopressor, Flagyl, Zofran, Protonix, troponin, sodium chloride, Desyrel, Effexor. Objective - Vital Signs Vital signs: Vital Signs Temp 96.3 F L 10/26/18 11:17 Pulse 54 L 10/26/18 11:17 Resp 19 10/26/18 11:17 BP 118/63 10/26/18 11:17 Pulse Ox 100 10/26/18 11:17 Intake & Output 10/25/18 10/26/18 10/26/18 18:59 06:59 18:59 Intake Total 950 600 Output Total 600 Balance 950 0 Weight 61.689 kg Intake: Intake, IV Titration 950 600 Amount Aztreonam 1 gm In Sodium 50 Chloride 0.9% 50 ml @ 100 mls/hr IVPB Q12HR [facility] Rx #:[id number] Sodium Chloride 0.9% 1, 800 500 000 ml @ 50 mls/hr IV . Q20H [facility] Rx#:[id number] metroNIDAZOLE-NS PMX 500 100 100 mg In Saline 1 100ml.bag @ 100 mls/hr IVPB Q8HR [facility] Rx#:[id number] Output: Urine 600 Straight 600 Other: Voiding Method Indwelling Catheter Indwelling Catheter Indwelling Catheter - Labs CBC & Chem 7: 10/26/18 07:00 10/26/18 08:40 Labs: Abnormal Lab Results - Last 24 Hours (Table) 10/25/18 10/25/18 10/25/18 Range/Units 12:11 17:39 20:25 RBC (3.80-5.40) m/uL Hgb (11.4-16.0) gm/dL Hct (34.0-46.0) % Lymphocytes # (1.0-4.8) k/uL Sodium (137-145) mmol/L Potassium (3.5-5.1) mmol/L Chloride (98-107) mmol/L BUN (7-17) mg/dL Creatinine (0.52-1.04) mg/dL Glucose (74-99) mg/dL POC Glucose (mg/dL) 207 H 187 H 139 H (75-99) mg/dL Calcium (8.4-10.2) mg/dL 10/26/18 10/26/18 10/26/18 Range/Units 07:00 07:03 08:40 RBC 2.16 L (3.80-5.40) m/uL Hgb 7.3 L D (11.4-16.0) gm/dL Hct 21.5 L (34.0-46.0) % Lymphocytes # 0.9 L (1.0-4.8) k/uL Sodium 133 L (137-145) mmol/L Potassium 5.6 H (3.5-5.1) mmol/L Chloride 96 L (98-107) mmol/L BUN 43 H (7-17) mg/dL Creatinine 1.63 H (0.52-1.04) mg/dL Glucose 144 H (74-99) mg/dL POC Glucose (mg/dL) 164 H (75-99) mg/dL Calcium 8.3 L (8.4-10.2) mg/dL 10/26/18 Range/Units 11:05 RBC (3.80-5.40) m/uL Hgb (11.4-16.0) gm/dL Hct (34.0-46.0) % Lymphocytes # (1.0-4.8) k/uL Sodium (137-145) mmol/L Potassium (3.5-5.1) mmol/L Chloride (98-107) mmol/L BUN (7-17) mg/dL Creatinine (0.52-1.04) mg/dL Glucose (74-99) mg/dL POC Glucose (mg/dL) 179 H (75-99) mg/dL Calcium (8.4-10.2) mg/dL Microbiology - Last 24 Hours (Table) 10/24/18 18:10 Urine Culture - Preliminary Urine,Catheterized Gram Neg Bacilli Gram Neg Bacilli#2 10/24/18 19:52 Blood Culture - Preliminary Blood No Growth after 24 hours Assessment and Plan Assessment: acute delirium Abdominal pain, mostly related to proctocolitis. abdominal wall hematoma Acute a drop in hemoglobin with blood loss anemia. Acute kidney injury with hyperkalemia Urinary tract infection Possible cirrhosis of the liver with portal hypertension Abdominal wall hematoma measuring 8.7 x 5.1 x 4.7 centimeters History of congestive heart failure History of atrial fibrillation, rate control. Not on anticoagulation History of GERD Hyperlipidemia Essential hypertension History of hypothyroidism Diabetes mellitus, type II Diabetic neuropathy History of sarcoidosis History of multiple drug ALLERGIES Patient is legally blind History of ulcerative colitis History of frequent falls Plan: This is a pleasant 73 years old female who presents with proctocolitis and abdominal wall hematoma, possible sepsis and continue with antibiotics. We'll check for C. diff.transfuse blood and call surgical consult. Labs and medication were reviewed.. Continue same treatment. Continue with symptomatic treatment. Resume home medication. Monitor lytes and vitals. DVT and GI prophylaxis. Further recommendations of the clinical course of the patient DVT prophylaxis: no heparin for now in view of pt hematoma GI Prophylaxis: Pepcid PT/OT: Pending Prognosis is guarded and poor
[2018-10-26 13:08] LABS: Glucose,Whole Blood 193 mg/dL (75-99)
--- NOTE | 2018-10-26 13:38 | CT ---
EXAMINATION TYPE: CT abdomen pelvis wo con DATE OF EXAM: 10/26/2018 COMPARISON: 10/24/2018 HISTORY: 73-year-old female hematoma CT DLP: 442 mGycm. Automated exposure control for dose reduction was used. TECHNIQUE: Contiguous axial scanning of the abdomen and pelvis without IV contrast. Coronal and sagit mauricio reconstructions performed. FINDINGS: Extensive calcified hilar lymph nodes partially visualized. Dense mitral annular calcifications. Hear t is borderline enlarged. Somewhat low density of the blood pole can be seen in the setting of anemia . Clinically correlate. No pericardial effusion. Coronary vessel calcifications. Redemonstrated moder ate left and small right pleural effusions. Prominent basilar left lower lobe atelectasis. Patchy con solidation within the basilar right lower lobe persists. Nodular contour of the liver suggesting either underlying cirrhosis. Limited assessment of the solid abdominal viscera and vascular structures due to lack of IV contrast. Gallbladder surgically absent. Noncontrast appearance of the adrenal glands, kidneys, spleen, and atrophic pancreas show no gross ab normality. Some nodularity anterior to the aortocaval region at or just above the level of the kidneys measures 1.8 x 1.1 cm and could represent an island of pancreatic tissue are prominent lymph node and can be r eassessed on a follow-up exam. No dilated small bowel, free fluid, or free air. Mild overall stool burden. Sigmoid diverticulosis. No mesenteric or retroperitoneal lymphadenopathy otherwise seen. Moderate to severe circumferential bladder wall thickening with Smith catheter in place. Small amount of nondependent intraluminal bladder air is present likely due to instrumentation. Uterus surgically absent. Neither ovary is visualized. Recently December edema persists. The overall perirectal fat stran ding show some improvement. No significant wall thickening of the rectum. No pelvic lymphadenopathy s een. Bones: Degenerative changes at the hips and multilevel degenerative changes throughout the lumbar spi ne with grade 2 anterolisthesis at L4-L5. Redemonstrated large hematoma involving or overlying the right external obliques. This measures 8.8 c m wide by 5.0 cm AP by 7.3 cm craniocaudal. Previously, this measured up to 10.4 cm wide by 4.4 cm AP by 8.7 cm craniocaudal. Diffuse anasarca type changes show slight worsening from prior exam. IMPRESSION: 1. Redemonstrated large hematoma involving or overlying the right external oblique. While minimally t hicker, the other dimensions are slightly smaller currently measuring 8.8 x 5.0 x 7.3 cm (versus 10.4 x 4.4 x 8.7 cm, previously). 2. Increasing anasarca-type change. Persistent moderate left and small right pleural effusions. 3. Slightly low density of the blood pool can be seen in the setting of anemia. Clinically correlate. 4. Left basilar atelectasis and patchy consolidation at the right base. Correlate to exclude pneumoni a. 5. Cirrhosis. 6. Atrophic pancreas. An area of 1.8 x 1.1 cm nodularity could represent an island of pancreatic tiss ue or a retroperitoneal lymph node. Consider 3 month follow-up CT to reassess. 7. Moderate to severe bladder wall thickening could represent chronic bladder wall hypertrophy or cys titis. Clinically correlate.
[2018-10-26 14:11] LABS: Albumin 3.3 g/dL (3.5-5.0); Calcium 8.1 mg/dL (8.4-10.2); Magnesium 1.5 mg/dL (1.6-2.3); Potassium 5.9 mmol/L (3.5-5.1); Total Bilirubin 0.9 mg/dL (0.2-1.3)
[2018-10-26 14:20] LABS: Basophils % (A) 1 %; Eosinophils # (A) 0.1 k/uL (0-0.7); Eosinophils % (A) 2 %; HCT 20.6 % (34.0-46.0); Hypochromasia Slight; Lymphocytes # (A) 0.5 k/uL (1.0-4.8); Lymphocytes % (A) 8 %; MCH 32.9 pg (25.0-35.0); MCV 102.8 fL (80.0-100.0); Macrocytosis Slight; Mean Platelet Volume 7.4; Monocytes # (A) 0.3 k/uL (0-1.0); Monocytes % (A) 6 %; Neutrophils # (A) 4.7 k/uL (1.3-7.7); Neutrophils % (A) 82 %; Platelet Count 181 k/uL (150-450); RDW 14.4 % (11.5-15.5); WBC 5.8 k/uL (3.8-10.6)
[2018-10-26 14:29] LABS: HGB 6.6 gm/dL (11.4-16.0)
[2018-10-26] MEDS ORDERED: Kcentra PER PHARMACY 1 EACH MISC MISCELLANE ONE (15:00)
[2018-10-26] MEDS ORDERED: HUMAN PROTHROMBIN COMPLX IV ONE ×2 (15:30)
--- NOTE | 2018-10-26 16:35 | XR ---
EXAMINATION TYPE: XR chest 1V portable DATE OF EXAM: 10/26/2018 COMPARISON: Prior chest x-ray 09/19/2018 HISTORY: Shortness of breath TECHNIQUE: Single frontal view of the chest is obtained. FINDINGS: Findings are similar to prior exam. There is interval development of retrocardiac density with obscured left hemidiaphragm. There is evidence of old granulomatous disease. There is prominence of interstitium. No pneumothorax. There are cardiac leads. Heart is enlarged. There is mitral annula r calcification. Aorta is dense. IMPRESSION: Correlate for congestive heart failure, possible left lower lobe atelectasis versus shelley a or pneumonia and associated effusion.
--- NOTE | 2018-10-26 16:46 | P.CNPUL ---
History of Present Illness Consult date: 10/26/18 Requesting physician: Toney Rodrigez Reason for consult: other Chief complaint: Blood loss anemia, abdominal wall hematoma, hypotension History of present illness: This 73-year-old white female patient of Dr. Morales, with multiple medical problems, including chronic atrial fibrillation on chronic anticoagulation, chronic congestive heart failure, COPD, diabetes mellitus type 2, hypertension, hyperlipidemia, chronic kidney disease, hypothyroidism, Parkinson's, previous stroke with left eye blindness, DJD, gait dysfunction, ulcerative colitis, recurrent urinary tract infections with previous history of vancomycin- resistant enterococcus UTI. Patient was recently hospitalized in September for mental status changes, hyponatremia, acute exacerbation of CHF with diastolic dysfunction, slurred speech and a right facial droop. Computed tomography scan of the brain did not show an acute intracranial process. She was found to have significant bilateral carotid artery stenosis of greater than 70%. MRI scan of the brain did reveal right nonhemorrhagic ophthalmic infarct. Patient does have lower extremity wounds, and following discharge from the hospital she was sent to the alf on IV vancomycin. Blood culture showed evidence of MSSA, however patient had multiple ALLERGIES including to cephalosporins, therefore requiring vancomycin infusions. On 10/24/2018 patient was brought to the emergency department per EMS from the alf for evaluation of developing hematoma over the right lower quadrant of her abdomen, which has been developing over a period of time but is now acutely tender and painful. Patient denied any recent fall, or trauma to the area. She has been having occasional fevers and chills area. Denied any chest pain, shortness of breath, cough, chest congestion. She had recently finished a lengthy course of IV vancomycin. She has a chronic indwelling Smith catheter in place, due to concern for frequent falls and inability to ambulate. Blood work on 10/24/2018 revealed a white blood cell count of 3.4, hemoglobin of 10.9, sodium was 133, potassium is 4.5, chloride is 90, CO2 is 38, B1 is 37, creatinine is 1.08. Amylase was less than 30, lipase was 16. ProBNP was 2230. Urinalysis showed small amount of blood, large amount of leuks, and white blood cells, related to underlying urinary tract infection. Patient was also having some abdominal discomfort. She was placed on a combination of Azactam and Flagyl. She has been afebrile during this admission. This morning patient was getting up to the bathroom, when she became briefly unresponsive, she was bradycardic with a heart rate in the 30s, and hypotensive. She was placed back in bed and she came to. She was given IV fluid bolus, stat CT of the abdomen and pelvis was obtained, and showed a large hematoma involving or overlying the right external oblique, measuring 8.8 x 5.0 x 7.3 cm. The blood work was obtained, and showed hemoglobin down to 6.6, sodium 132, potassium is 5.9, BUN 42, creatinine is 1.84. She was transferred to the intensive care unit for further monitoring, she is being transfused with 1 unit of packed red blood cells. And this consult was initiated. Currently blood pressure is 98/58 , heart rate is 52, pulse ox is 94% on 3 L, patient is afebrile, she is pale, but in no acute distress. Denies any chest pain or shortness of breath. Review of Systems All systems: negative Constitutional: Denies chills, Denies fever Eyes: denies blurred vision, denies pain Ears, nose, mouth and throat: Denies headache, Denies sore throat Cardiovascular: Denies chest pain, Denies shortness of breath Respiratory: Denies cough Gastrointestinal: Reports abdominal pain, Denies diarrhea, Denies nausea, Denies vomiting Genitourinary: Denies dysuria, Denies hematuria Musculoskeletal: Denies myalgias Integumentary: Denies pruritus, Denies rash Neurological: Denies numbness, Denies weakness Psychiatric: Denies anxiety, Denies depression Endocrine: Denies fatigue, Denies weight change 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, multiple drug allergies - some reactions severe, parkinsons, short term memory problems at times, L eye ocular stroke-legally blind, macular degeneration bilaterally, hypothyroid, DJD, DDD, several past fractures d/t falls, frequent falls, gait dysfunction, IBS, ulcerative colitis, acute renal failure, UTIs, 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incont of urien -has idc that was changed in er 10-24-18 History of Any Multi-Drug Resistant Organisms: VRE Date of last positivie culture/infection: 08/18/13 [facility] MDRO Source:: Urine Past Surgical History: Appendectomy, Breast Surgery, Section, Cholecystectomy, Hysterectomy, Orthopedic Surgery Additional Past Surgical History / Comment(s): Debridements R lower leg, L side tongue benign lesion, 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 Smoking Status: Never smoker Past Alcohol Use History: None Reported Additional Past Alcohol Use History / Comment(s): Patient is a lifelong nonsmoker. She denies any medical marijuana, marijuana, street drug or alcohol use at this time. Patient does have a history of heavy alcohol use and quit 12 years ago. She is currently on Social Security. She is currently at [facility] for rehab r/t falls/weakness. pt stated she is not ambulatory. Past Drug Use History: None Reported - Past Family History Father Family Medical History: Cancer, Prostate Disorder Additional Family Medical History / Comment(s): PROSTATE CA, HERNIA SX BACK SX Mother Family Medical History: Cancer Additional Family Medical History / Comment(s): Mother is . Mother had lung cancer. She was a smoker. Medications and Allergies Home Medications Medication Instructions Recorded Confirmed Type Carbidopa-Levodopa 25-100 mg 1 tab PO TID 01/15/16 10/24/18 History [Sinemet 25-100 mg] Levothyroxine Sodium 137 mcg PO DAILY@0600 04/28/18 10/24/18 History Multivitamins, Thera [Multivitamin 1 tab PO DAILY@1700 04/28/18 10/24/18 History (formulary)] Amiodarone HCl [Pacerone] 200 mg PO DAILY 08/09/18 10/24/18 History Atorvastatin Calcium [Lipitor] 10 mg PO HS@2100 08/09/18 10/24/18 History Calcium Carb/Vitamin D3/Vit K1 1 tab PO DAILY@1700 08/09/18 10/24/18 History [Citracal Soft Chew] Docusate [Colace] 100 mg PO BID PRN 08/09/18 10/24/18 History Ergocalciferol [Vitamin D2 50,000 unit PO ROSA 08/09/18 10/24/18 History (DRISDOL)] Ferrous Sulfate [Iron] 325 mg PO BID@0800,1700 08/09/18 10/24/18 History Fluticasone/Salmeterol [Advair 1 inhalation PO RT-BID 08/09/18 10/24/18 History 500-50 Diskus] Lansoprazole 30 mg PO DAILY@0600 08/09/18 10/24/18 History Levocetirizine Dihydrochloride 5 mg PO HS 08/09/18 10/24/18 History [Xyzal] Primidone [Mysoline] 50 mg PO DAILY 08/09/18 10/24/18 History Thiamine HCl [Vitamin B-1] 100 mg PO DAILY@1700 08/09/18 10/24/18 History Tolterodine Tartrate [Detrol LA] 4 mg PO HS@2100 08/09/18 10/24/18 History Venlafaxine HCl ER [Effexor XR] 75 mg PO DAILY 08/09/18 10/24/18 History Vit C/E/Zn/Coppr/Lutein/Zeaxan 1 tab PO DAILY 08/09/18 10/24/18 History [Preservision Areds 2 Softgel] Bisacodyl [Dulcolax] 10 mg RECTAL DAILY PRN 09/12/18 10/24/18 History Folic Acid 1 mg PO DAILY@1700 09/12/18 10/24/18 History INSULIN LISPRO (HumaLOG) [humaLOG] See Protocol SQ HS 09/12/18 10/24/18 History Magnesium Hydroxide [Milk of 2,400 mg PO DAILY PRN 09/12/18 10/24/18 History Magnesia] Acetaminophen Tab [Tylenol] 650 mg PO Q6HR PRN tab 09/23/18 10/24/18 Rx Metoprolol Tartrate [Lopressor] 25 mg PO BID tab 09/23/18 10/24/18 Rx Tetrahydrozoline 0.05% Ophth 1 drops BOTH EYES TID PRN ml 09/23/18 10/24/18 Rx [Visine Eye Drops] amLODIPine [Norvasc] 5 mg PO DAILY tab 09/23/18 10/24/18 Rx Ammonium Lactate Lotion 1 applic TOPICAL DAILY 10/24/18 10/24/18 History [Lac-Hydrin 12% Lotion] Apixaban [Eliquis] 5 mg PO BID@0800,1700 10/24/18 10/24/18 History Furosemide [Lasix] 40 mg PO DAILY@1400 10/24/18 10/24/18 History Furosemide [Lasix] 80 mg PO DAILY 10/24/18 10/24/18 History INSULIN LISPRO (HumaLOG) [HumaLOG] See Protocol SQ AC-TID 10/24/18 10/24/18 History Insulin Detemir (Levemir) [Levemir] 5 unit SQ QAM 10/24/18 10/24/18 History Ipratropium-Albuterol Nebulize 3 ml INHALATION RT-BID 10/24/18 10/24/18 History [Duoneb 0.5 mg-3 mg/3 ml Soln] Ipratropium-Albuterol Nebulize 3 ml INHALATION RT-QID PRN 10/24/18 10/24/18 History [Duoneb 0.5 mg-3 mg/3 ml Soln] Lactose-Reduced Food [Ensure Plus] 240 ml PO TID@0800,1700,2100 10/24/18 History Magnesium Oxide [Mag-Ox] 400 mg PO DAILY 10/24/18 10/24/18 History Melatonin 1 mg PO HS PRN 10/24/18 10/24/18 History Menthol [Biofreeze] 1 applic TOPICAL QID PRN 10/24/18 10/24/18 History Na Phos,M-B/Na Phos,Di-Ba [Fleet 133 ml RECTAL DAILY PRN 10/24/18 10/24/18 History Adult] Potassium Chloride [Klor-Con 20] 20 meq PO DAILY 10/24/18 10/24/18 History Teriparatide [Forteo] 20 mcg SQ DAILY 10/24/18 10/24/18 History traZODone HCL 50 mg PO HS 10/24/18 10/24/18 History Allergies Allergy/AdvReac Type Severity Reaction Status Date / Time cefdinir Allergy Severe Swelling Verified 10/24/18 14:05 Cephalosporins Allergy Unknown Verified 10/24/18 14:05 codeine Allergy Unknown Verified 10/24/18 14:05 doxycycline Allergy Nausea & Verified 10/24/18 14:05 Vomiting erythromycin base Allergy Nausea & Verified 10/24/18 14:05 Vomiting & Diarrhea/RASH Penicillins Allergy Rash/Hives Verified 10/24/18 14:05 trimethoprim [From Bactrim] Allergy Unknown Verified 10/24/18 14:05 azithromycin AdvReac Nausea & Verified 10/24/18 14:05 Vomiting hydrochlorothiazide AdvReac Nausea & Verified 10/24/18 14:05 [From Dyazide] Vomiting levofloxacin [From Levaquin] AdvReac Abdominal Verified 10/24/18 14:05 Pain moxifloxacin HCl AdvReac Unknown Verified 10/24/18 14:05 [From Avelox] sulfamethoxazole AdvReac Nausea & Verified 10/24/18 14:05 [From Bactrim] Vomiting & Diarrhea triamterene [From Dyazide] AdvReac Nausea & Verified 10/24/18 14:05 Vomiting Physical Exam Vitals: Vital Signs Temp Pulse Pulse Resp BP Pulse Ox 10/26/18 12:55 52 L 98/58 94 L 10/26/18 12:50 40 L 104/50 98 10/26/18 11:17 96.3 F L 54 L 19 118/63 100 10/26/18 08:57 72 10/26/18 08:49 68 91 L 10/26/18 07:06 97.1 F L 54 L 20 111/63 91 L 10/26/18 04:50 97.7 F 54 L 20 102/50 93 L 10/25/18 21:24 84 10/25/18 21:13 78 10/25/18 20:52 98.3 F 56 L 20 114/54 94 L 10/25/18 17:48 84 Intake and Output 10/26/18 10/26/18 10/26/18 06:59 14:59 22:59 Intake Total 450 720 0 Output Total 600 Balance -150 720 0 Intake: Intake, IV Titration 450 600 Amount Aztreonam 1 gm In Sodium 50 Chloride 0.9% 50 ml @ 100 mls/hr IVPB Q12HR L[facility]O Rx #:[id number] Sodium Chloride 0.9% 1, 350 450 000 ml @ 75 mls/hr IV . [id number] [facility] Rx#:[id number] metroNIDAZOLE-NS PMX 500 100 100 mg In Saline 1 100ml.bag @ 100 mls/hr IVPB Q8HR LAMBERTO Rx#:[id number] Oral 120 Blood Product 0 Rc As-1 Unit 0 [id number] Output: Urine 600 Straight 600 Other: Voiding Method Indwelling Catheter Indwelling Catheter GENERAL EXAM: Alert, pale-looking 73-year-old white female on 3 L per nasal cannula comfortable in no apparent distress. HEAD: Normocephalic/atraumatic. EYES: Normal reaction of pupils, equal size. Conjunctiva pink, sclera white. NOSE: Clear with pink turbinates. THROAT: No erythema or exudates. NECK: No masses, no JVD, no thyroid enlargement, no adenopathy. CHEST: No chest wall deformity. Symmetrical expansion. LUNGS: Equal air entry with no crackles, wheeze, rhonchi or dullness. CVS: Regular rate and rhythm, normal S1 and S2, no gallops, no murmurs, no rubs ABDOMEN: Soft, nontender. No hepatosplenomegaly, normal bowel sounds, no guarding or rigidity. Large right-sided abdominal hematoma outlined with the marker EXTREMITIES: No clubbing, no edema, no cyanosis, 2+ pulses and upper and lower extremities. MUSCULOSKELETAL: Muscle strength and tone normal. SPINE: No scoliosis or deformity SKIN: No rashes CENTRAL NERVOUS SYSTEM: Alert and oriented -3. No focal deficits, tone is normal in all 4 extremities. PSYCHIATRIC: Alert and oriented -3. Appropriate affect. Intact judgment and insight. Results - Laboratory Findings CBC and BMP: 10/26/18 13:43 10/26/18 13:43 Abnormal lab findings: Abnormal Labs 10/24/18 10/24/18 10/24/18 14:05 14:05 15:02 WBC 3.4 L RBC 3.32 L Hgb 10.9 L D Hct 33.2 L MCV Plt Count 112 L Lymphocytes # 0.4 L Sodium 133 L Potassium Chloride 90 L Carbon Dioxide 38 H BUN 37 H Creatinine 1.08 H Glucose 143 H POC Glucose (mg/dL) Calcium Magnesium AST 48 H Total Protein 5.7 L Albumin 2.9 L Amylase <30 L Lipase 16 L Urine Appearance Cloudy H Urine pH 8.5 H Urine Protein Trace H Urine Blood Small H Ur Leukocyte Esterase Large H Urine RBC Urine WBC 72 H Urine WBC Clumps Urine Bacteria Urine Mucus Rare H Crossmatch 10/24/18 10/25/18 10/25/18 18:10 07:17 12:11 WBC RBC Hgb Hct MCV Plt Count Lymphocytes # Sodium Potassium Chloride Carbon Dioxide BUN Creatinine Glucose POC Glucose (mg/dL) 164 H 207 H Calcium Magnesium AST Total Protein Albumin Amylase Lipase Urine Appearance Cloudy H Urine pH Urine Protein Urine Blood Trace H Ur Leukocyte Esterase Large H Urine RBC 6 H Urine WBC 124 H Urine WBC Clumps Few H Urine Bacteria Rare H Urine Mucus Rare H Crossmatch 10/25/18 10/25/18 10/26/18 17:39 20:25 07:00 WBC RBC 2.16 L Hgb 7.3 L D Hct 21.5 L MCV Plt Count Lymphocytes # 0.9 L Sodium Potassium Chloride Carbon Dioxide BUN Creatinine Glucose POC Glucose (mg/dL) 187 H 139 H Calcium Magnesium AST Total Protein Albumin Amylase Lipase Urine Appearance Urine pH Urine Protein Urine Blood Ur Leukocyte Esterase Urine RBC Urine WBC Urine WBC Clumps Urine Bacteria Urine Mucus Crossmatch 10/26/18 10/26/18 10/26/18 07:03 08:40 11:05 WBC RBC Hgb Hct MCV Plt Count Lymphocytes # Sodium 133 L Potassium 5.6 H Chloride 96 L Carbon Dioxide BUN 43 H Creatinine 1.63 H Glucose 144 H POC Glucose (mg/dL) 164 H 179 H Calcium 8.3 L Magnesium AST Total Protein Albumin Amylase Lipase Urine Appearance Urine pH Urine Protein Urine Blood Ur Leukocyte Esterase Urine RBC Urine WBC Urine WBC Clumps Urine Bacteria Urine Mucus Crossmatch 10/26/18 10/26/18 10/26/18 12:47 13:43 13:43 WBC RBC 2.00 L Hgb 6.6 L* Hct 20.6 L MCV 102.8 H Plt Count Lymphocytes # 0.5 L Sodium 132 L Potassium 5.9 H Chloride 94 L Carbon Dioxide BUN 42 H Creatinine 1.84 H Glucose 159 H POC Glucose (mg/dL) 193 H Calcium 8.1 L Magnesium 1.5 L AST 124 H Total Protein 6.0 L Albumin 3.3 L Amylase Lipase Urine Appearance Urine pH Urine Protein Urine Blood Ur Leukocyte Esterase Urine RBC Urine WBC Urine WBC Clumps Urine Bacteria Urine Mucus Crossmatch 10/26/18 13:43 WBC RBC Hgb Hct MCV Plt Count Lymphocytes # Sodium Potassium Chloride Carbon Dioxide BUN Creatinine Glucose POC Glucose (mg/dL) Calcium Magnesium AST Total Protein Albumin Amylase Lipase Urine Appearance Urine pH Urine Protein Urine Blood Ur Leukocyte Esterase Urine RBC Urine WBC Urine WBC Clumps Urine Bacteria Urine Mucus Crossmatch See Detail - Diagnostic Findings Chest x-ray: report reviewed, image reviewed Additional studies: Abdomen/pelvis CT reviewed Assessment and Plan Plan: Assessment: #1. Acute symptomatic blood loss anemia, related to a large abdominal wall hematoma on the right side of the abdomen and related to Eliquis administration #2. Hypotension, bradycardia, brief episode of unresponsiveness related to the above #3. Acute kidney injury related to acute anemia, and the possibility of vancomycin-induced kidney injury #4. Hyponatremia #5. Hyperkalemia, hypomagnesemia #6. Chronic A. fib with slow ventricular rate, on chronic anticoagulation with Eliquis, which is currently on hold related to acute right abdominal wall hematoma and anemia #7. Acute urinary tract infection #8. History of recent hospitalization for acute exacerbation of CHF with diastolic dysfunction, multiple status changes, hyponatremia, MSSA bacteremia #9. Recent diagnosis of thalamic infarct on MRI of the brain #10. Carotid artery stenosis greater than 70%, and patient was supposed to follow with the vascular surgery #11. Multiple medical problems, including diabetes mellitus type 2, COPD, chronic congestive heart failure, hypertension, hyperlipidemia, Parkinson's disease, hypothyroidism, history of previous CVA with left-sided blindness, DJD , gait dysfunction, frequent falls, ulcerative colitis, IBS, frequent and recurrent UTIs with history of vancomycin resistant enterococcus UTI, skin cancer, chronic wounds, anxiety Plan: Agree with the transfusion of packed red blood cells for symptomatic anemia. Patient will be given a dose of K Centra, last dose of Eliquis according to the alf records was on 10/24/2018 at 8:00 in the morning. Patient is awake and alert, hemodynamically she is improving, still bradycardic, but the heart rate is in the 40s to 50s range, continue holding amiodarone and blockers , Eliquis is on hold. Obtain baseline chest x-ray, infectious disease service is following. Urine culture did show 2 different species gram-negative bacilli , final culture is pending. Surgery has been consulted. Will keep the patient in the intensive care unit. Repeat blood work in the morning. CODE STATUS is DO NOT RESUSCITATE, we'll continue with supportive care. I performed a history & physical examination of the patient and discussed their management with my nurse practitioner, Alesha Rodriguez. I reviewed the nurse practitioner's note and agree with the documented findings and plan of care. Lung sounds are positive for diminsihed breath sounds. The findings and the impression was discussed with the patient. I attest to the documentation by the nurse practitioner. Time with Patient: Greater than 30
[2018-10-26] MEDS: CALCIUM CARB-VIT D 500MG-200UN 1 EACH TAB PO SCH (17:44)
[2018-10-26 17:47] LABS: Glucose,Whole Blood 168 mg/dL (75-99)
--- NOTE | 2018-10-26 18:38 | P.GSCN ---
History of Present Illness Consult date: 10/26/18 Reason for Consult: Abdominal wall hematoma History of present illness: Patient presents to the hospital because of an enlarging hematoma right midabdomen. There is question whether the patient had some trauma to that area recently. The patient was on eloquis. Last dose of eloquis it appears was 2-3 days ago. CAT scan on 10/24 around 2:30 in the afternoon revealed a 8 cm hematoma involving the external oblique on the right side. Today when the patient was sitting up at the bedside she felt syncopal with some hypotension. Patient's hemoglobin went from 10-7.3. Patient was transferred to the ICU at that time. Repeat CAT scan was obtained which shows that the hematoma itself was fairly similar in size however there was more stranding in the fatty tissues compared to the study 48 hours ago. Patient is doing better at this time. Systolic blood pressure in the 100 range. Receiving blood products. She was given prothrombin as a reversal for her eloquis today. Complaining of mild pain at the hematoma site. Patient has a baseline of being confused. Review of Systems The patient denies any acute changes in vision or hearing, no dysphagia or odynophagia, no chest pain or shortness of breath, no dysuria or hematuria, no headache, no runny nose, no rectal bleeding or melena, no unexplained weight loss 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 Smoking Status: Never smoker Past Alcohol Use History: None Reported Additional Past Alcohol Use History / Comment(s): Patient is a lifelong nonsmoker. She denies any medical marijuana, marijuana, street drug or alcohol use at this time. Patient does have a history of heavy alcohol use and quit 12 years ago. She is currently on Social Security. She is currently at [facility] for rehab r/t falls/weakness. pt stated she is not ambulatory. Past Drug Use History: None Reported - Past Family History Father Family Medical History: Cancer, Prostate Disorder Additional Family Medical History / Comment(s): PROSTATE CA, HERNIA SX BACK SX Mother Family Medical History: Cancer Additional Family Medical History / Comment(s): Mother is . Mother had lung cancer. She was a smoker. Medications and Allergies Home Medications Medication Instructions Recorded Confirmed Type Carbidopa-Levodopa 25-100 mg 1 tab PO TID 01/15/16 10/24/18 History [Sinemet 25-100 mg] Levothyroxine Sodium 137 mcg PO DAILY@0600 04/28/18 10/24/18 History Multivitamins, Thera [Multivitamin 1 tab PO DAILY@1700 04/28/18 10/24/18 History (formulary)] Amiodarone HCl [Pacerone] 200 mg PO DAILY 08/09/18 10/24/18 History Atorvastatin Calcium [Lipitor] 10 mg PO HS@2100 08/09/18 10/24/18 History Calcium Carb/Vitamin D3/Vit K1 1 tab PO DAILY@1700 08/09/18 10/24/18 History [Citracal Soft Chew] Docusate [Colace] 100 mg PO BID PRN 08/09/18 10/24/18 History Ergocalciferol [Vitamin D2 50,000 unit PO ROSA 08/09/18 10/24/18 History (DRISDOL)] Ferrous Sulfate [Iron] 325 mg PO BID@0800,1700 08/09/18 10/24/18 History Fluticasone/Salmeterol [Advair 1 inhalation PO RT-BID 08/09/18 10/24/18 History 500-50 Diskus] Lansoprazole 30 mg PO DAILY@0600 08/09/18 10/24/18 History Levocetirizine Dihydrochloride 5 mg PO HS 08/09/18 10/24/18 History [Xyzal] Primidone [Mysoline] 50 mg PO DAILY 08/09/18 10/24/18 History Thiamine HCl [Vitamin B-1] 100 mg PO DAILY@1700 08/09/18 10/24/18 History Tolterodine Tartrate [Detrol LA] 4 mg PO HS@2100 08/09/18 10/24/18 History Venlafaxine HCl ER [Effexor XR] 75 mg PO DAILY 08/09/18 10/24/18 History Vit C/E/Zn/Coppr/Lutein/Zeaxan 1 tab PO DAILY 08/09/18 10/24/18 History [Preservision Areds 2 Softgel] Bisacodyl [Dulcolax] 10 mg RECTAL DAILY PRN 09/12/18 10/24/18 History Folic Acid 1 mg PO DAILY@1700 09/12/18 10/24/18 History INSULIN LISPRO (HumaLOG) [humaLOG] See Protocol SQ HS 09/12/18 10/24/18 History Magnesium Hydroxide [Milk of 2,400 mg PO DAILY PRN 09/12/18 10/24/18 History Magnesia] Acetaminophen Tab [Tylenol] 650 mg PO Q6HR PRN tab 09/23/18 10/24/18 Rx Metoprolol Tartrate [Lopressor] 25 mg PO BID tab 09/23/18 10/24/18 Rx Tetrahydrozoline 0.05% Ophth 1 drops BOTH EYES TID PRN ml 09/23/18 10/24/18 Rx [Visine Eye Drops] amLODIPine [Norvasc] 5 mg PO DAILY tab 09/23/18 10/24/18 Rx Ammonium Lactate Lotion 1 applic TOPICAL DAILY 10/24/18 10/24/18 History [Lac-Hydrin 12% Lotion] Apixaban [Eliquis] 5 mg PO BID@0800,1700 10/24/18 10/24/18 History Furosemide [Lasix] 40 mg PO DAILY@1400 10/24/18 10/24/18 History Furosemide [Lasix] 80 mg PO DAILY 10/24/18 10/24/18 History INSULIN LISPRO (HumaLOG) [HumaLOG] See Protocol SQ AC-TID 10/24/18 10/24/18 History Insulin Detemir (Levemir) [Levemir] 5 unit SQ QAM 10/24/18 10/24/18 History Ipratropium-Albuterol Nebulize 3 ml INHALATION RT-BID 10/24/18 10/24/18 History [Duoneb 0.5 mg-3 mg/3 ml Soln] Ipratropium-Albuterol Nebulize 3 ml INHALATION RT-QID PRN 10/24/18 10/24/18 History [Duoneb 0.5 mg-3 mg/3 ml Soln] Lactose-Reduced Food [Ensure Plus] 240 ml PO TID@0800,1700,2100 10/24/18 History Magnesium Oxide [Mag-Ox] 400 mg PO DAILY 10/24/18 10/24/18 History Melatonin 1 mg PO HS PRN 10/24/18 10/24/18 History Menthol [Biofreeze] 1 applic TOPICAL QID PRN 10/24/18 10/24/18 History Na Phos,M-B/Na Phos,Di-Ba [Fleet 133 ml RECTAL DAILY PRN 10/24/18 10/24/18 History Adult] Potassium Chloride [Klor-Con 20] 20 meq PO DAILY 10/24/18 10/24/18 History Teriparatide [Forteo] 20 mcg SQ DAILY 10/24/18 10/24/18 History traZODone HCL 50 mg PO HS 10/24/18 10/24/18 History Allergies Allergy/AdvReac Type Severity Reaction Status Date / Time cefdinir Allergy Severe Swelling Verified 10/24/18 14:05 Cephalosporins Allergy Unknown Verified 10/24/18 14:05 codeine Allergy Unknown Verified 10/24/18 14:05 doxycycline Allergy Nausea & Verified 10/24/18 14:05 Vomiting erythromycin base Allergy Nausea & Verified 10/24/18 14:05 Vomiting & Diarrhea/RASH Penicillins Allergy Rash/Hives Verified 10/24/18 14:05 trimethoprim [From Bactrim] Allergy Unknown Verified 10/24/18 14:05 azithromycin AdvReac Nausea & Verified 10/24/18 14:05 Vomiting hydrochlorothiazide AdvReac Nausea & Verified 10/24/18 14:05 [From Dyazide] Vomiting levofloxacin [From Levaquin] AdvReac Abdominal Verified 10/24/18 14:05 Pain moxifloxacin HCl AdvReac Unknown Verified 10/24/18 14:05 [From Avelox] sulfamethoxazole AdvReac Nausea & Verified 10/24/18 14:05 [From Bactrim] Vomiting & Diarrhea triamterene [From Dyazide] AdvReac Nausea & Verified 10/24/18 14:05 Vomiting Surgical - Exam Vital Signs Temp Pulse Resp BP Pulse Ox 98 F 53 L 18 120/103 100 10/24/18 13:36 10/24/18 13:36 10/24/18 13:36 10/24/18 13:36 10/24/18 13:36 Physical exam: General: Well-developed, well-nourished HEENT: Normocephalic, sclerae nonicteric Abdomen: Right-sided ecchymosis noted, firmer area of hematoma measuring 8 x 9 cm similar in size to the previously demarcated skin lines, nondistended Extremities: No edema Neuro: Alert but slightly confused Results - Labs 10/26/18 13:43 10/26/18 13:43 Abnormal Lab Results - Last 24 Hours (Table) 10/24/18 10/25/18 10/26/18 Range/Units 14:05 20:25 07:00 RBC 2.16 L (3.80-5.40) m/uL Hgb 7.3 L D (11.4-16.0) gm/dL Hct 21.5 L (34.0-46.0) % MCV (80.0-100.0) fL Lymphocytes # 0.9 L (1.0-4.8) k/uL Sodium (137-145) mmol/L Potassium (3.5-5.1) mmol/L Chloride (98-107) mmol/L BUN (7-17) mg/dL Creatinine (0.52-1.04) mg/dL Glucose (74-99) mg/dL POC Glucose (mg/dL) 139 H (75-99) mg/dL Calcium (8.4-10.2) mg/dL Magnesium (1.6-2.3) mg/dL AST (14-36) U/L Total Protein (6.3-8.2) g/dL Albumin (3.5-5.0) g/dL TSH 7.980 H (0.465-4.680) mIU/L Crossmatch 10/26/18 10/26/18 10/26/18 Range/Units 07:03 08:40 11:05 RBC (3.80-5.40) m/uL Hgb (11.4-16.0) gm/dL Hct (34.0-46.0) % MCV (80.0-100.0) fL Lymphocytes # (1.0-4.8) k/uL Sodium 133 L (137-145) mmol/L Potassium 5.6 H (3.5-5.1) mmol/L Chloride 96 L (98-107) mmol/L BUN 43 H (7-17) mg/dL Creatinine 1.63 H (0.52-1.04) mg/dL Glucose 144 H (74-99) mg/dL POC Glucose (mg/dL) 164 H 179 H (75-99) mg/dL Calcium 8.3 L (8.4-10.2) mg/dL Magnesium (1.6-2.3) mg/dL AST (14-36) U/L Total Protein (6.3-8.2) g/dL Albumin (3.5-5.0) g/dL TSH (0.465-4.680) mIU/L Crossmatch 10/26/18 10/26/18 10/26/18 Range/Units 12:47 13:43 13:43 RBC 2.00 L (3.80-5.40) m/uL Hgb 6.6 L* (11.4-16.0) gm/dL Hct 20.6 L (34.0-46.0) % MCV 102.8 H (80.0-100.0) fL Lymphocytes # 0.5 L (1.0-4.8) k/uL Sodium 132 L (137-145) mmol/L Potassium 5.9 H (3.5-5.1) mmol/L Chloride 94 L (98-107) mmol/L BUN 42 H (7-17) mg/dL Creatinine 1.84 H (0.52-1.04) mg/dL Glucose 159 H (74-99) mg/dL POC Glucose (mg/dL) 193 H (75-99) mg/dL Calcium 8.1 L (8.4-10.2) mg/dL Magnesium 1.5 L (1.6-2.3) mg/dL AST 124 H (14-36) U/L Total Protein 6.0 L (6.3-8.2) g/dL Albumin 3.3 L (3.5-5.0) g/dL TSH (0.465-4.680) mIU/L Crossmatch 10/26/18 10/26/18 Range/Units 13:43 17:46 RBC (3.80-5.40) m/uL Hgb (11.4-16.0) gm/dL Hct (34.0-46.0) % MCV (80.0-100.0) fL Lymphocytes # (1.0-4.8) k/uL Sodium (137-145) mmol/L Potassium (3.5-5.1) mmol/L Chloride (98-107) mmol/L BUN (7-17) mg/dL Creatinine (0.52-1.04) mg/dL Glucose (74-99) mg/dL POC Glucose (mg/dL) 168 H (75-99) mg/dL Calcium (8.4-10.2) mg/dL Magnesium (1.6-2.3) mg/dL AST (14-36) U/L Total Protein (6.3-8.2) g/dL Albumin (3.5-5.0) g/dL TSH (0.465-4.680) mIU/L Crossmatch See Detail Microbiology - Last 24 Hours (Table) 10/24/18 18:10 Urine Culture - Preliminary Urine,Catheterized Gram Neg Bacilli Gram Neg Bacilli#2 10/24/18 19:52 Blood Culture - Preliminary Blood No Growth after 24 hours Diabetes panel 10/26/18 10/26/18 Range/Units 08:40 13:43 Sodium 133 L 132 L (137-145) mmol/L Potassium 5.6 H 5.9 H (3.5-5.1) mmol/L Chloride 96 L 94 L (98-107) mmol/L Carbon Dioxide 29 28 (22-30) mmol/L BUN 43 H 42 H (7-17) mg/dL Creatinine 1.63 H 1.84 H (0.52-1.04) mg/dL Glucose 144 H 159 H (74-99) mg/dL Calcium 8.3 L 8.1 L (8.4-10.2) mg/dL AST 124 H (14-36) U/L ALT 41 (9-52) U/L Alkaline Phosphatase 91 (38-126) U/L Total Protein 6.0 L (6.3-8.2) g/dL Albumin 3.3 L (3.5-5.0) g/dL Thyroid panel 10/24/18 Range/Units 14:05 TSH 7.980 H (0.465-4.680) mIU/L Calcium panel 10/26/18 10/26/18 Range/Units 08:40 13:43 Calcium 8.3 L 8.1 L (8.4-10.2) mg/dL Albumin 3.3 L (3.5-5.0) g/dL Pituitary panel 10/24/18 10/26/18 10/26/18 Range/Units 14:05 08:40 13:43 Sodium 133 L 132 L (137-145) mmol/L Potassium 5.6 H 5.9 H (3.5-5.1) mmol/L Chloride 96 L 94 L (98-107) mmol/L Carbon Dioxide 29 28 (22-30) mmol/L BUN 43 H 42 H (7-17) mg/dL Creatinine 1.63 H 1.84 H (0.52-1.04) mg/dL Glucose 144 H 159 H (74-99) mg/dL Calcium 8.3 L 8.1 L (8.4-10.2) mg/dL TSH 7.980 H (0.465-4.680) mIU/L Adrenal panel 02/13/19 02/13/19 Range/Units 08:40 13:43 Sodium 133 L 132 L (137-145) mmol/L Potassium 5.6 H 5.9 H (3.5-5.1) mmol/L Chloride 96 L 94 L (98-107) mmol/L Carbon Dioxide 29 28 (22-30) mmol/L BUN 43 H 42 H (7-17) mg/dL Creatinine 1.63 H 1.84 H (0.52-1.04) mg/dL Glucose 144 H 159 H (74-99) mg/dL Calcium 8.3 L 8.1 L (8.4-10.2) mg/dL Total Bilirubin 0.9 (0.2-1.3) mg/dL AST 124 H (14-36) U/L ALT 41 (9-52) U/L Alkaline Phosphatase 91 (38-126) U/L Total Protein 6.0 L (6.3-8.2) g/dL Albumin 3.3 L (3.5-5.0) g/dL Assessment and Plan (1) Abdominal hematoma Narrative/Plan: Patient's hematoma actually has not changed significantly over the last 48 hours. Agree with current management. No surgical intervention planned at this time. Will follow clinically with you. Consider holding off on any further anticoagulation given the patient's comorbidities and DO NOT RESUSCITATE status. Current Visit: Yes Status: Acute Code(s): S30.1XXA - CONTUSION OF ABDOMINAL WALL, INITIAL ENCOUNTER SNOMED Code(s): 821391336
--- NOTE | 2018-10-26 18:49 | CONS ---
CONSULTATION Mrs. Chou is a 73-year-old female who presented from the longterm with progressive abdominal discomfort and was found to have a large rectus hematoma. The patient has known history of chronic persistent atrial fibrillation, has been followed by Dr. Rivera, has a history of CHF with preserved systolic function. Cardiology consultation was requested because of an episode of bradycardia and hypotension. Apparently the patient was taken to the bathroom today on the floor and she became bradycardic and hypotensive and was subsequently transferred to the ICU. She is sleepy at this point and the history is obtained from her . The patient's activity level has been declining. She has been getting weaker and more fatigued over the last year or so. She has history of chronic dyspnea on exertion. She has no recent syncope. She has no chest pain or prior history of documented myocardial infarction. She has been complaining of progressive abdominal discomfort and on presentation was found to have a large hematoma involving the right external oblique musculature. She has no peripheral edema, no clear PND or orthopnea. She has not been anticoagulated because of the recent area of bleeding on her head CT during a previous admission. MEDICATIONS: Medications at the time of admission included: 1. Norvasc 5 mg daily. 2. DuoNeb. 3. Dulcolax. 4. Insulin. 5. Lopressor 25 mg twice a day. 6. Thiamine. 7. Primidone. 8. Amiodarone 200 mg daily. 9. Lipitor 10 mg daily. 10.Lasix. 11.Forteo. 12.Drisdol. REVIEW OF SYSTEMS: RESPIRATORY SYSTEM: She has chronic dyspnea on exertion. No recent wheezing or cough. GI SYSTEM: She has the abdominal pain and the mass. SYSTEM: No recent dysuria or hematuria. NERVOUS SYSTEM: She has prior history of stroke. PHYSICAL EXAMINATION: She is a 73-year-old female, sleepy. Blood pressure running in the high 90s to 100 with a heart rate in the 40s. HEAD: Normocephalic. Eyes: Sclerae anicteric. NECK: No bruit. LUNGS: Clear to auscultation anteriorly. HEART: Irregularly irregular. S1, S2. No S3, with systolic murmur. No diastolic murmur. No rub. ABDOMEN: Soft. Hematoma noted on the right side. Firm. EXTREMITIES: Chronic skin changes with decreased pulses and an ulceration noted. LAB DATA: BUN and creatinine of 37 and 1.08 on admission with a hemoglobin of 10.9. Today her hemoglobin is down to 6.6. BUN and creatinine are 42 and 1.84. Rhythm strip revealed atrial fibrillation. IMPRESSION: 1. Episode of hypotension and bradycardia related to the anemia and the intravascular depletion. 2. Chronic persistent atrial fibrillation. 3. Abdominal wall hematoma. 4. Prior history of congestive heart failure with diastolic dysfunction. 5. History of hypertension. 6. Diabetes mellitus. 7. History of sarcoidosis. 8. History of multiple falls. 9. Worsening renal function. RECOMMENDATIONS: From the cardiac standpoint, I will stop the amiodarone. I will cut down the dose of the beta elisabeth. Patient has been evaluated by the GI service for possible transfusion. I will obtain evaluation of thyroid function test. She had an echocardiogram during her last admission that revealed a preserved left ventricular size and systolic function. Thank you for this consult. Will follow with you. MEG / LATA: [id number] /
[2018-10-26 19:36] LABS: T4, Free (Free Thyroxine) 2.72 ng/dL (0.78-2.19)
[2018-10-26 20:29] LABS: Glucose,Whole Blood 190 mg/dL (75-99)
[2018-10-26] MEDS: ATORVASTATIN 10 MG TAB PO SCH (20:50)
[2018-10-26] MEDS: INSULIN ASPART (NovoLOG) 100 UNIT/ML VIAL SQ SCH (20:50)
[2018-10-26] MEDS ORDERED: METOPROLOL TARTRATE 12.5 MG TAB PO SCH (21:00)
[2018-10-26] MEDS ORDERED: MAGNESIUM SULFATE-D5W PMX 1 GM in DEXTROSE/WATER 1 100ML.BAG IVPB ONE (21:00)
[2018-10-26] MEDS: traZODone HCL 50 MG TAB PO SCH (21:39)
[2018-10-26] MEDS: OXYBUTYNIN 10 MG TAB.ER.24 PO SCH (21:39)
[2018-10-26] MEDS: MELATONIN 1 MG TAB PO SCH (22:07)
--- NOTE | 2018-10-26 22:39 | P.PN ---
Subjective Progress Note Date: 10/26/18 Principal diagnosis: Colitis, abdominal pain Patient seen lying in bed earlier in the day still complaining of abdominal tenderness. No signs or symptoms of GI bleeding reported. Objective - Vital Signs Vital signs: Vital Signs Temp 98.2 F 10/26/18 20:00 Pulse 52 L 10/26/18 21:00 Resp 5 L 10/26/18 21:00 BP 94/57 10/26/18 21:00 Pulse Ox 97 10/26/18 21:00 Intake & Output 10/26/18 10/26/18 10/27/18 06:59 18:59 06:59 Intake Total 600 1255 275 Output Total 600 240 140 Balance 0 1015 135 Intake: IV 225 275 Aztreonam 1 gm In Sodium 50 Chloride 0.9% 50 ml @ 100 mls/hr IVPB Q12HR [facility] Rx #:[id number] Sodium Chloride 0.9% 1, 225 225 000 ml @ 75 mls/hr IV . [id number] [facility] Rx#:[id number] Intake, IV Titration 600 600 Amount Aztreonam 1 gm In Sodium 50 Chloride 0.9% 50 ml @ 100 mls/hr IVPB Q12HR [facility] Rx #:[id number] Sodium Chloride 0.9% 1, 500 450 000 ml @ 75 mls/hr IV . [id number] [facility] Rx#:[id number] metroNIDAZOLE-NS PMX 500 100 100 mg In Saline 1 100ml.bag @ 100 mls/hr IVPB Q8HR [facility] Rx#:[id number] Oral 120 Blood Product 310 Rc As-1 Unit 310 [id number] Output: Urine 600 240 140 Straight 600 Other: Voiding Method Indwelling Catheter Indwelling Catheter Indwelling Catheter - Exam On physical examination, patient appears comfortable in no apparent distress. HEAD: Normocephalic, atraumatic. EYES: No scleral icterus. No conjunctival injection. MOUTH: No lesions, tongue midline. NECK: Trachea midline, no gross abnormalities. CHEST: Decreased air entry in all lung douglas. HEART: Irregularly irregular. ABDOMEN: Soft, obese, tender to palpation in right quadrant of the abdomen where hematoma appears to be stable in size. Bowel sounds are positive. No organomegaly. No guarding or rigidity. EXTREMITIES: No pedal edema. SKIN: No jaundice. NEUROLOGIC: Alert. No focal deficits. - Labs CBC & Chem 7: 10/26/18 13:43 10/26/18 13:43 Labs: Abnormal Lab Results - Last 24 Hours (Table) 10/24/18 10/26/18 10/26/18 Range/Units 14:05 07:00 07:03 RBC 2.16 L (3.80-5.40) m/uL Hgb 7.3 L D (11.4-16.0) gm/dL Hct 21.5 L (34.0-46.0) % MCV (80.0-100.0) fL Lymphocytes # 0.9 L (1.0-4.8) k/uL Sodium (137-145) mmol/L Potassium (3.5-5.1) mmol/L Chloride (98-107) mmol/L BUN (7-17) mg/dL Creatinine (0.52-1.04) mg/dL Glucose (74-99) mg/dL POC Glucose (mg/dL) 164 H (75-99) mg/dL Calcium (8.4-10.2) mg/dL Magnesium (1.6-2.3) mg/dL AST (14-36) U/L Total Protein (6.3-8.2) g/dL Albumin (3.5-5.0) g/dL TSH 7.980 H (0.465-4.680) mIU/L Free T4 2.72 H (0.78-2.19) ng/dL Crossmatch 10/26/18 10/26/18 10/26/18 Range/Units 08:40 11:05 12:47 RBC (3.80-5.40) m/uL Hgb (11.4-16.0) gm/dL Hct (34.0-46.0) % MCV (80.0-100.0) fL Lymphocytes # (1.0-4.8) k/uL Sodium 133 L (137-145) mmol/L Potassium 5.6 H (3.5-5.1) mmol/L Chloride 96 L (98-107) mmol/L BUN 43 H (7-17) mg/dL Creatinine 1.63 H (0.52-1.04) mg/dL Glucose 144 H (74-99) mg/dL POC Glucose (mg/dL) 179 H 193 H (75-99) mg/dL Calcium 8.3 L (8.4-10.2) mg/dL Magnesium (1.6-2.3) mg/dL AST (14-36) U/L Total Protein (6.3-8.2) g/dL Albumin (3.5-5.0) g/dL TSH (0.465-4.680) mIU/L Free T4 (0.78-2.19) ng/dL Crossmatch 10/26/18 10/26/18 10/26/18 Range/Units 13:43 13:43 13:43 RBC 2.00 L (3.80-5.40) m/uL Hgb 6.6 L* (11.4-16.0) gm/dL Hct 20.6 L (34.0-46.0) % MCV 102.8 H (80.0-100.0) fL Lymphocytes # 0.5 L (1.0-4.8) k/uL Sodium 132 L (137-145) mmol/L Potassium 5.9 H (3.5-5.1) mmol/L Chloride 94 L (98-107) mmol/L BUN 42 H (7-17) mg/dL Creatinine 1.84 H (0.52-1.04) mg/dL Glucose 159 H (74-99) mg/dL POC Glucose (mg/dL) (75-99) mg/dL Calcium 8.1 L (8.4-10.2) mg/dL Magnesium 1.5 L (1.6-2.3) mg/dL AST 124 H (14-36) U/L Total Protein 6.0 L (6.3-8.2) g/dL Albumin 3.3 L (3.5-5.0) g/dL TSH (0.465-4.680) mIU/L Free T4 (0.78-2.19) ng/dL Crossmatch See Detail 10/26/18 10/26/18 Range/Units 17:46 20:27 RBC (3.80-5.40) m/uL Hgb (11.4-16.0) gm/dL Hct (34.0-46.0) % MCV (80.0-100.0) fL Lymphocytes # (1.0-4.8) k/uL Sodium (137-145) mmol/L Potassium (3.5-5.1) mmol/L Chloride (98-107) mmol/L BUN (7-17) mg/dL Creatinine (0.52-1.04) mg/dL Glucose (74-99) mg/dL POC Glucose (mg/dL) 168 H 190 H (75-99) mg/dL Calcium (8.4-10.2) mg/dL Magnesium (1.6-2.3) mg/dL AST (14-36) U/L Total Protein (6.3-8.2) g/dL Albumin (3.5-5.0) g/dL TSH (0.465-4.680) mIU/L Free T4 (0.78-2.19) ng/dL Crossmatch Microbiology - Last 24 Hours (Table) 10/24/18 19:52 Blood Culture - Preliminary Blood No Growth after 48 hours 10/24/18 18:10 Urine Culture - Preliminary Urine,Catheterized Gram Neg Bacilli Gram Neg Bacilli#2 Assessment and Plan (1) Colitis Narrative/Plan: Patient denying any change in bowel habits, diarrhea, constipation, hematochezia or melena but was found to have perirectal thickening on computed tomography scan of the abdomen. Currently she is receiving antibiotic treatment. Current Visit: Yes Status: Acute Code(s): K52.9 - NONINFECTIVE GASTROENTERITIS AND COLITIS, UNSPECIFIED SNOMED Code(s): 45822496 (2) Abdominal hematoma Current Visit: Yes Status: Acute Code(s): S30.1XXA - CONTUSION OF ABDOMINAL WALL, INITIAL ENCOUNTER SNOMED Code(s): 014199604 Plan: Supportive care Okay for diet Monitor stool output Continue antibiotic therapy, currently receiving aztreonam and Flagyl Patient unclear about the exact date of last colonoscopy, however given findings of colitis on computed tomography scan would recommend repeat endoscopy in 4-6 weeks after completion of antibiotic therapy After seen this morning patient was transferred to the ICU due to symptomatic anemia, with PRBCs ordered and K Centra for reversal Jillian Thank you for allowing us to participate in the care of this patient we will continue to follow
[2018-10-27 04:51] LABS: Basophils % (A) 1 %; Eosinophils # (A) 0.1 k/uL (0-0.7); Eosinophils % (A) 3 %; Lymphocytes # (A) 0.5 k/uL (1.0-4.8); Lymphocytes % (A) 11 %; MCH 33.7 pg (25.0-35.0); MCV 99.1 fL (80.0-100.0); Macrocytosis Slight; Mean Platelet Volume 6.9; Monocytes # (A) 0.4 k/uL (0-1.0); Monocytes % (A) 8 %; Neutrophils # (A) 3.7 k/uL (1.3-7.7); Neutrophils % (A) 74 %; Platelet Count 146 k/uL (150-450); RDW 15.6 % (11.5-15.5); WBC 4.9 k/uL (3.8-10.6)
[2018-10-27 04:59] LABS: Calcium 7.9 mg/dL (8.4-10.2); Magnesium 1.9 mg/dL (1.6-2.3); Potassium 4.5 mmol/L (3.5-5.1)
[2018-10-27 05:04] LABS: HCT 19.8 % (34.0-46.0); HGB 6.7 gm/dL (11.4-16.0)
--- NOTE | 2018-10-27 05:13 | PN ---
PROGRESS NOTE DATE OF SERVICE: 10/26/2018 REASON FOR FOLLOWUP: Colitis. INTERVAL HISTORY: The patient did have an episode of syncope subsequently patient has been transferred to the ICU. The patient also noticed to have more worsening bruising to the right lower abdominal area. The patient was lethargic and sleepy at the time of evaluation. She could not provide any history. No nausea, vomiting or diarrhea per nursing staff. PHYSICAL EXAMINATION: On examination, blood pressure 94/57 with the pulse 52, temperature 98. She is 97% on 4 L nasal cannula. General description is an elderly female lying in bed in no distress. RESPIRATORY SYSTEM: Unlabored breathing, clear to auscultation anteriorly. HEART: S1, S2. Regular rate and rhythm. ABDOMEN: Soft. Did have significant bruising to the right lower abdominal area. EXTREMITIES: Some trace edema of the feet. LABS: Hemoglobin 6.6, white count 5.8 with BUN 42, creatinine 1.84. Stools were requested, not obtained. DIAGNOSTIC IMPRESSION AND PLAN: Patient admitted to the hospital with possible colitis . Stool requested, not obtained urinary tract infection. Patient is currently covered with Azactam and Flagyl because of her multiple antibiotic allergy to continue for now. Continue supportive care. Family present at bedside. Their questions were answered. MMODL / IJN: [id number] /
[2018-10-27] MEDS ORDERED: Magnesium Replacement Protocol 1 EACH MISC MISCELLANE PRN (05:36)
[2018-10-27] MEDS: MAGNESIUM SULFATE-D5W PMX 1 GM in DEXTROSE/WATER 1 100ML.BAG IVPB SCH ×2 (05:53→08:34)
[2018-10-27] MEDS: CARBIDOPA-LEVODOPA 25-100 MG 1 EACH TAB PO SCH ×3 (06:42→21:01)
[2018-10-27] MEDS: LEVOTHYROXINE 137 MCG TAB PO SCH (06:42)
[2018-10-27 07:00] LABS: Glucose,Whole Blood 177 mg/dL (75-99)
[2018-10-27] MEDS: SYMBICORT 160-4.5 MCG INHALER INHALATION SCH ×2 (07:27→19:43)
[2018-10-27] MEDS: IPRATROPIUM-ALBUTEROL 3 ML NEB INHALATION SCH ×2 (07:27→19:43)
[2018-10-27] MEDS: INSULIN ASPART (NovoLOG) 100 UNIT/ML VIAL SQ SCH ×4 (07:30→21:00)
[2018-10-27] MEDS: NON-FORMULARY DRUG (Teriparatide [Forteo] 20 MCG) SQ SCH (08:37)
[2018-10-27] MEDS: metroNIDAZOLE-NS PMX 500 MG in SALINE 1 100ML.BAG IVPB SCH ×2 (08:43→15:55)
[2018-10-27] MEDS: FERROUS SULFATE 325 MG TAB PO SCH ×2 (08:44→16:00)
[2018-10-27] MEDS: MAGNESIUM OXIDE 400 MG TAB PO SCH (08:44)
[2018-10-27] MEDS: PANTOPRAZOLE 40 MG/10 ML VIAL IV SCH (08:44)
[2018-10-27] MEDS: VENLAFAXINE HCL ER 75 MG CAP PO SCH (08:44)
[2018-10-27] MEDS: PRIMIDONE 50 MG TAB PO SCH (08:44)
[2018-10-27] MEDS: AZTREONAM 1 GM in SODIUM CHLORIDE 0.9% 50 ML IVPB SCH ×2 (08:44→20:59)
[2018-10-27] MEDS: INSULIN DETEMIR (LEVEMIR) 100 UNIT/ML SYR SQ SCH (08:44)
--- NOTE | 2018-10-27 08:50 | PN ---
PROGRESS NOTE Mrs. Chou is a 73-year-old female who presented with progressive abdominal discomfort and was found to have a hematoma in the right side of the abdomen. She had an episode of syncope earlier while on the floor. She is in the ICU, awake, confused at times, but no chest pain. Hemodynamically is stable. Continues to be in atrial fibrillation with controlled ventricular response. There is no evidence of bradycardia or tachycardia. She is receiving a transfusion. She continued to be on Lipitor 10 mg daily, Sinemet, iron, metoprolol tartrate 12.5 mg twice a day, Mysoline and Effexor. PHYSICAL EXAMINATION: Blood pressure 116/60 with the heart rate in the 50s. LUNGS: Clear. HEART: Irregular, irregular. S1, S2. No S3 with systolic murmur. No diastolic murmur. ABDOMEN: Soft, nontender. EXTREMITIES: No edema. LABS: Hemoglobin is 6.7. BUN and creatinine 48 and 2.0. Potassium 4.5. IMPRESSION: 1. Severe anemia. 2. Abdominal wall hematoma. 3. Chronic persistent atrial fibrillation. 4. Renal failure. 5. Prior history of hypertension. 6. Hypotension, resolved. 7. Hyperlipidemia. 8. History of sarcoidosis. RECOMMENDATION: From the cardiac standpoint, I will stop her beta elisabeth at this time and follow her heart rate. Continue the present therapy. We are holding on anticoagulation at this time and that needs to be re-evaluated regarding restarting in view of her overall status. The risk may outweigh the benefit in this patient. Depending on her progress, further recommendation will be made. MMODL / IJN: [id number] / MTDD
[2018-10-27] MEDS ORDERED: FUROSEMIDE 10 MG/ML 2 ML VIAL IV ONE (08:56)
--- NOTE | 2018-10-27 08:57 | XR ---
EXAMINATION TYPE: XR chest 1V DATE OF EXAM: 10/27/2018 COMPARISON: Prior chest x-ray 10/26/2018 HISTORY: Pleural effusion TECHNIQUE: Single frontal view of the chest is obtained. FINDINGS: Similar to prior exam. Interstitium is increased. Retrocardiac density persists with obscu red left hemidiaphragm. Heart is enlarged. There is evidence of old granulomatous disease as on prior . Apical pleural thickening is present, scarring present in the perihilar regions. Left-sided PICC li ne is in place, distal tip overlying superior vena cava. IMPRESSION: Correlate for congestive heart failure, left pleural effusion and associated atelectasis versus edema, pneumonia not excluded. Follow-up recommended.
--- NOTE | 2018-10-27 09:07 | US ---
EXAMINATION TYPE: US chest DATE OF EXAM: 10/27/2018 COMPARISON: Chest x-ray same date CLINICAL HISTORY: Markings for thoracentesis by pulmonary staff. Pleural Effusion TECHNIQUE: Targeted ultrasound of the posterior lower bilateral hemithoraces EXAM MEASUREMENTS: Right Pleural Effusion pocket size: 1.4 cm Left Pleural Effusion pocket size: 7.1 cm Left skin surface to fluid distance: 2.3 cm Left side marked for possible thoracentesis outside the dept. Pulmonologists are able to review the images in the patient?s EMR. IMPRESSIONS: Moderate left-sided pleural effusion, small right pleural effusion
[2018-10-27 11:49] LABS: Glucose,Whole Blood 137 mg/dL (75-99)
--- NOTE | 2018-10-27 12:14 | P.PN ---
Subjective Progress Note Date: 10/27/18 Principal diagnosis: Abdominal wall hematoma and anemia secondary to blood loss This 73-year-old white female patient of Dr. Morales, with multiple medical problems, including chronic atrial fibrillation on chronic anticoagulation, chronic congestive heart failure, COPD, diabetes mellitus type 2, hypertension, hyperlipidemia, chronic kidney disease, hypothyroidism, Parkinson's, previous stroke with left eye blindness, DJD, gait dysfunction, ulcerative colitis, recurrent urinary tract infections with previous history of vancomycin- resistant enterococcus UTI. Patient was recently hospitalized in September for mental status changes, hyponatremia, acute exacerbation of CHF with diastolic dysfunction, slurred speech and a right facial droop. Computed tomography scan of the brain did not show an acute intracranial process. She was found to have significant bilateral carotid artery stenosis of greater than 70%. MRI scan of the brain did reveal right nonhemorrhagic ophthalmic infarct. Patient does have lower extremity wounds, and following discharge from the hospital she was sent to the [facility] on IV vancomycin. Blood culture showed evidence of MSSA, however patient had multiple ALLERGIES including to cephalosporins, therefore requiring vancomycin infusions.On 10/24/2018 patient was brought to the emergency department per EMS from the [facility] for evaluation of developing hematoma over the right lower quadrant of her abdomen, which has been developing over a period of time but is now acutely tender and painful. Patient denied any recent fall, or trauma to the area. She has been having occasional fevers and chills area. Denied any chest pain, shortness of breath, cough, chest congestion. She had recently finished a lengthy course of IV vancomycin. She has a chronic indwelling Smith catheter in place, due to concern for frequent falls and inability to ambulate. Blood work on 10/24/2018 revealed a white blood cell count of 3.4, hemoglobin of 10.9, sodium was 133, potassium is 4.5, chloride is 90, CO2 is 38, B1 is 37, creatinine is 1.08. Amylase was less than 30, lipase was 16. ProBNP was 2230. Urinalysis showed small amount of blood, large amount white blood cells, related to underlying urinary tract infection. Patient was also having some abdominal discomfort. She was placed on a combination of Azactam and Flagyl. She has been afebrile during this admission. This morning patient was getting up to the bathroom, when she became briefly unresponsive, she was bradycardic with a heart rate in the 30s, and hypotensive. She was placed back in bed and she came to. She was given IV fluid bolus, stat CT of the abdomen and pelvis was obtained, and showed a large hematoma involving or overlying the right external oblique, measuring 8.8 x 5.0 x 7.3 cm. The blood work was obtained, and showed hemoglobin down to 6.6, sodium 132, potassium is 5.9, BUN 42, creatinine is 1.84. She was transferred to the intensive care unit for further monitoring, she is being transfused with 1 unit of packed red blood cells. And this consult was initiated. Currently blood pressure is 98/58, heart rate is 52, pulse ox is 94% on 3 L, patient is afebrile, she is pale, but in no acute distress. Denies any chest pain or shortness of breath Patient was reevaluated today on 10/27/2018, feeling better, no further episodes of syncope since she was admitted to the intensive care unit. He received so far a total of 3 units of packed RBCs, hemoglobin was 6.7 this morning, and Nexium hemoglobin is pending after the last unit of packed RBCs given. Patient is hemodynamically stable. Chest x-ray showed evidence of congestive heart failure with good sized left-sided pleural effusion further noted on ultrasound the chest, may or may not require thoracentesis. In the meantime we'll try to diuretics for what seems to be a picture of congestive heart failure and fluid overload urine culture came back positive for Pseudomonas and Proteus, and that is being addressed by infectious disease on the case. Renal profile today is a bit worse, BUN is 48 creatinine is 2.0. Baseline creatinine on admission was 1.08. Clinically however the patient is feeling better. Continues to have good sized hematoma in the right lower quadrant area. Objective - Vital Signs Vital signs: Vital Signs Temp 97 F L 10/27/18 10:19 Pulse 50 L 10/27/18 10:19 Resp 14 10/27/18 10:19 BP 142/65 10/27/18 10:19 Pulse Ox 99 10/27/18 10:19 Intake & Output 10/26/18 10/27/18 10/27/18 18:59 06:59 18:59 Intake Total 1255 1175 310 Output Total 240 580 Balance 1015 595 310 Weight 63 kg Intake: IV 225 1075 Aztreonam 1 gm In Sodium 50 Chloride 0.9% 50 ml @ 100 mls/hr IVPB Q12HR [facility] Rx #:[id number] Magnesium Sulfate-D5w Pmx 200 1 gm In Dextrose/Water 1 100ml.bag @ 100 mls/hr IVPB ONCE ONE Rx#: [id number] Sodium Chloride 0.9% 1, 225 725 000 ml @ 50 mls/hr IV . Q20H [facility] Rx#:[id number] metroNIDAZOLE-NS PMX 500 100 mg In Saline 1 100ml.bag @ 100 mls/hr IVPB Q8HR [facility] Rx#:[id number] Intake, IV Titration 600 Amount Aztreonam 1 gm In Sodium 50 Chloride 0.9% 50 ml @ 100 mls/hr IVPB Q12HR [facility] Rx #:[id number] Sodium Chloride 0.9% 1, 450 000 ml @ 50 mls/hr IV . Q20H [facility] Rx#:[id number] metroNIDAZOLE-NS PMX 500 100 mg In Saline 1 100ml.bag @ 100 mls/hr IVPB Q8HR [facility] Rx#:[id number] Oral 120 100 Blood Product 310 310 Rc As-1 Unit 310 [id number] Rc As-1 Unit 310 [id number] Output: Urine 240 580 Other: Voiding Method Indwelling Catheter Indwelling Catheter - Exam Physical Exam: Revealed a 73-year-old female in no distress Head: Atraumatic normocephalic. HEENT:[Neck is supple.] [No neck masses.] [No thyromegaly.] [No JVD.] PERRLA, EOMI, no icterus. Dry mucous membranes noted. Chest: [Diminished breath sounds at the bases with crackles and dullness at the left base. Symmetrical chest expansion, no chest wall tenderness.] Cardiac Exam: [Normal S1 and S2, no S3 gallop, no murmur.] Abdomen: [Soft, nontender, no megaly, no rebound, no guarding, normal bowel sounds.] Large right lower quadrant abdominal wall hematoma noted, unchanged compared to yesterday. Extremities: [No clubbing, no edema, no cyanosis.] Good pulses bilaterally 2+ Neurological Exam: [No focal neurologic deficit.] Alert and oriented 3. Psychiatric: Normal mood, affect and mental status examination. Skin: No rashes. - Labs CBC & Chem 7: 10/27/18 04:36 10/27/18 04:36 Labs: Abnormal Lab Results - Last 24 Hours (Table) 10/24/18 10/26/18 10/26/18 Range/Units 14:05 12:47 13:43 RBC 2.00 L (3.80-5.40) m/uL Hgb 6.6 L* (11.4-16.0) gm/dL Hct 20.6 L (34.0-46.0) % MCV 102.8 H (80.0-100.0) fL RDW (11.5-15.5) % Plt Count (150-450) k/uL Lymphocytes # 0.5 L (1.0-4.8) k/uL Sodium (137-145) mmol/L Potassium (3.5-5.1) mmol/L Chloride (98-107) mmol/L BUN (7-17) mg/dL Creatinine (0.52-1.04) mg/dL Glucose (74-99) mg/dL POC Glucose (mg/dL) 193 H (75-99) mg/dL Calcium (8.4-10.2) mg/dL Magnesium (1.6-2.3) mg/dL AST (14-36) U/L Total Protein (6.3-8.2) g/dL Albumin (3.5-5.0) g/dL TSH 7.980 H (0.465-4.680) mIU/L Free T4 2.72 H (0.78-2.19) ng/dL Crossmatch 10/26/18 10/26/18 10/26/18 Range/Units 13:43 13:43 17:46 RBC (3.80-5.40) m/uL Hgb (11.4-16.0) gm/dL Hct (34.0-46.0) % MCV (80.0-100.0) fL RDW (11.5-15.5) % Plt Count (150-450) k/uL Lymphocytes # (1.0-4.8) k/uL Sodium 132 L (137-145) mmol/L Potassium 5.9 H (3.5-5.1) mmol/L Chloride 94 L (98-107) mmol/L BUN 42 H (7-17) mg/dL Creatinine 1.84 H (0.52-1.04) mg/dL Glucose 159 H (74-99) mg/dL POC Glucose (mg/dL) 168 H (75-99) mg/dL Calcium 8.1 L (8.4-10.2) mg/dL Magnesium 1.5 L (1.6-2.3) mg/dL AST 124 H (14-36) U/L Total Protein 6.0 L (6.3-8.2) g/dL Albumin 3.3 L (3.5-5.0) g/dL TSH (0.465-4.680) mIU/L Free T4 (0.78-2.19) ng/dL Crossmatch See Detail 10/26/18 10/27/18 10/27/18 Range/Units 20:27 04:36 04:36 RBC 2.00 L (3.80-5.40) m/uL Hgb 6.7 L* (11.4-16.0) gm/dL Hct 19.8 L* (34.0-46.0) % MCV (80.0-100.0) fL RDW 15.6 H (11.5-15.5) % Plt Count 146 L (150-450) k/uL Lymphocytes # 0.5 L (1.0-4.8) k/uL Sodium 134 L (137-145) mmol/L Potassium (3.5-5.1) mmol/L Chloride 97 L (98-107) mmol/L BUN 48 H (7-17) mg/dL Creatinine 2.00 H (0.52-1.04) mg/dL Glucose 113 H (74-99) mg/dL POC Glucose (mg/dL) 190 H (75-99) mg/dL Calcium 7.9 L (8.4-10.2) mg/dL Magnesium (1.6-2.3) mg/dL AST (14-36) U/L Total Protein (6.3-8.2) g/dL Albumin (3.5-5.0) g/dL TSH (0.465-4.680) mIU/L Free T4 (0.78-2.19) ng/dL Crossmatch 10/27/18 10/27/18 Range/Units 06:58 11:48 RBC (3.80-5.40) m/uL Hgb (11.4-16.0) gm/dL Hct (34.0-46.0) % MCV (80.0-100.0) fL RDW (11.5-15.5) % Plt Count (150-450) k/uL Lymphocytes # (1.0-4.8) k/uL Sodium (137-145) mmol/L Potassium (3.5-5.1) mmol/L Chloride (98-107) mmol/L BUN (7-17) mg/dL Creatinine (0.52-1.04) mg/dL Glucose (74-99) mg/dL POC Glucose (mg/dL) 177 H 137 H (75-99) mg/dL Calcium (8.4-10.2) mg/dL Magnesium (1.6-2.3) mg/dL AST (14-36) U/L Total Protein (6.3-8.2) g/dL Albumin (3.5-5.0) g/dL TSH (0.465-4.680) mIU/L Free T4 (0.78-2.19) ng/dL Crossmatch Microbiology - Last 24 Hours (Table) 10/24/18 18:10 Urine Culture - Final Urine,Catheterized Proteus vulgaris Pseudomonas aeruginosa 10/24/18 19:52 Blood Culture - Preliminary Blood No Growth after 48 hours Assessment and Plan Assessment: Impression: 1 acute symptomatic anemia secondary to blood loss secondary to large abdominal wall hematoma most likely related to anticoagulation therapy/eliquis. 2 acute hypotension associated with bradycardia, and associated with blood loss , improving with blood transfusion. 3 acute kidney injury, multifactorial likely related to hypotension/acute tumor necrosis, although medication-induced lung injury is not entirely ruled out. 4 electrolytes imbalance including hyponatremia and hypokalemia as well as hypomagnesemia, exact etiology is not clear. Those are being corrected accordingly. Likely multifactorial,, 5 suspect some component of congestive heart failure likely diastolic in nature with left-sided pleural effusion which may or may not require thoracentesis. 6 acute urinary tract infection, being addressed by infectious disease on the case. 7 recent ischemic infarct noted on recent MRI. 8 carotid artery stenosis 9 type 2 diabetes 10 underlying COPD 11 Parkinson's disease 12 hypothyroidism 13 degenerative joint disease 14 8 dysfunction 15 ulcerative colitis and irritable bowel syndrome 16 recurrent episodes of urinary tract infections. Recommendation: Continue blood transfusion to keep hemoglobin above 7 patient was seen by general surgery, and surgery is not recommended at this point. Patient did receive K central reverse eliquis since the last dose was given less than 24 hours from the time of her abdominal wall hematoma. Anticoagulations therapy is still on hold, patient has obviously absolute contraindication to anticoagulation therapy at this point. Continue treatment of her urinary tract infection, continue to monitor renal profile closely on a daily basis, patient will be given diuretics and will continue to monitor renal status and electrolytes may or may not consider left-sided thoracentesis, discussed with her the findings on the ultrasound, patient seems to be a bit reluctant to consider thoracentesis at this point. Hopefully the fluid will respond to diuretics. Time with Patient: Less than 30
[2018-10-27] MEDS: AMMONIUM LACTATE 12% LOTION 225 GM BTL TOPICAL SCH (12:27)
[2018-10-27] MEDS: SODIUM CHLORIDE 0.9% 1,000 ML IV SCH (12:28)
[2018-10-27 13:48] LABS: Anisocytosis Slight; HCT 25.3 % (34.0-46.0); MCH 31.4 pg (25.0-35.0); MCHC 32.4 g/dL (31.0-37.0); MCV 96.8 fL (80.0-100.0); Macrocytosis Slight; Mean Platelet Volume 7.5; Platelet Count 124 k/uL (150-450); RBC 2.62 m/uL (3.80-5.40); RDW 17.1 % (11.5-15.5); WBC 5.3 k/uL (3.8-10.6)
[2018-10-27 13:57] LABS: HGB 8.2 gm/dL (11.4-16.0)
--- NOTE | 2018-10-27 14:39 | P.PN ---
Subjective Progress Note Date: 10/27/18 Principal diagnosis: Abdominal wall hematoma Patient doing better today. Hemodynamically is stable. Hemoglobin 8.2 now after receiving a total of 2 units. Denies pain currently. Objective - Vital Signs Vital signs: Vital Signs Temp 97 F L 10/27/18 13:00 Pulse 54 L 10/27/18 13:00 Resp 13 10/27/18 13:00 BP 128/88 10/27/18 13:00 Pulse Ox 98 10/27/18 13:00 Intake & Output 10/26/18 10/27/18 10/27/18 18:59 06:59 18:59 Intake Total 1255 1175 710 Output Total 240 580 120 Balance 1015 595 590 Weight 63 kg Intake: IV 225 1075 400 Aztreonam 1 gm In Sodium 50 Chloride 0.9% 50 ml @ 100 mls/hr IVPB Q12HR [facility] Rx #:[id number] Magnesium Sulfate-D5w Pmx 200 1 gm In Dextrose/Water 1 100ml.bag @ 100 mls/hr IVPB ONCE ONE Rx#: [id number] Sodium Chloride 0.9% 1, 225 725 200 000 ml @ 50 mls/hr IV . Q20H [facility] Rx#:[id number] metroNIDAZOLE-NS PMX 500 100 200 mg In Saline 1 100ml.bag @ 100 mls/hr IVPB Q8HR [facility] Rx#:[id number] Intake, IV Titration 600 Amount Aztreonam 1 gm In Sodium 50 Chloride 0.9% 50 ml @ 100 mls/hr IVPB Q12HR [facility] Rx #:[id number] Sodium Chloride 0.9% 1, 450 000 ml @ 50 mls/hr IV . Q20H [facility] Rx#:[id number] metroNIDAZOLE-NS PMX 500 100 mg In Saline 1 100ml.bag @ 100 mls/hr IVPB Q8HR [facility] Rx#:[id number] Oral 120 100 Blood Product 310 310 Rc As-1 Unit 310 [id number] Rc As-1 Unit 310 [id number] Output: Urine 240 580 120 Other: Voiding Method Indwelling Catheter Indwelling Catheter Indwelling Catheter - Exam Right abdominal wall with hematoma that is softer and less tender, ecchymosis slightly increased which is to be expected. - Labs CBC & Chem 7: 10/27/18 13:35 10/27/18 04:36 Labs: Abnormal Lab Results - Last 24 Hours (Table) 10/24/18 10/26/18 10/26/18 Range/Units 14:05 13:43 17:46 RBC (3.80-5.40) m/uL Hgb (11.4-16.0) gm/dL Hct (34.0-46.0) % RDW (11.5-15.5) % Plt Count (150-450) k/uL Lymphocytes # (1.0-4.8) k/uL Sodium (137-145) mmol/L Chloride (98-107) mmol/L BUN (7-17) mg/dL Creatinine (0.52-1.04) mg/dL Glucose (74-99) mg/dL POC Glucose (mg/dL) 168 H (75-99) mg/dL Calcium (8.4-10.2) mg/dL TSH 7.980 H (0.465-4.680) mIU/L Free T4 2.72 H (0.78-2.19) ng/dL Crossmatch See Detail 10/26/18 10/27/18 10/27/18 Range/Units 20:27 04:36 04:36 RBC 2.00 L (3.80-5.40) m/uL Hgb 6.7 L* (11.4-16.0) gm/dL Hct 19.8 L* (34.0-46.0) % RDW 15.6 H (11.5-15.5) % Plt Count 146 L (150-450) k/uL Lymphocytes # 0.5 L (1.0-4.8) k/uL Sodium 134 L (137-145) mmol/L Chloride 97 L (98-107) mmol/L BUN 48 H (7-17) mg/dL Creatinine 2.00 H (0.52-1.04) mg/dL Glucose 113 H (74-99) mg/dL POC Glucose (mg/dL) 190 H (75-99) mg/dL Calcium 7.9 L (8.4-10.2) mg/dL TSH (0.465-4.680) mIU/L Free T4 (0.78-2.19) ng/dL Crossmatch 10/27/18 10/27/18 10/27/18 Range/Units 06:58 11:48 13:35 RBC 2.62 L (3.80-5.40) m/uL Hgb 8.2 L D (11.4-16.0) gm/dL Hct 25.3 L (34.0-46.0) % RDW 17.1 H (11.5-15.5) % Plt Count 124 L (150-450) k/uL Lymphocytes # (1.0-4.8) k/uL Sodium (137-145) mmol/L Chloride (98-107) mmol/L BUN (7-17) mg/dL Creatinine (0.52-1.04) mg/dL Glucose (74-99) mg/dL POC Glucose (mg/dL) 177 H 137 H (75-99) mg/dL Calcium (8.4-10.2) mg/dL TSH (0.465-4.680) mIU/L Free T4 (0.78-2.19) ng/dL Crossmatch Microbiology - Last 24 Hours (Table) 10/24/18 18:10 Urine Culture - Final Urine,Catheterized Proteus vulgaris Pseudomonas aeruginosa 10/24/18 19:52 Blood Culture - Preliminary Blood No Growth after 48 hours Assessment and Plan (1) Abdominal hematoma Narrative/Plan: Continue to monitor hemoglobin. No drainage of hematoma or exploration plan. We'll follow with you. Current Visit: Yes Status: Acute Code(s): S30.1XXA - CONTUSION OF ABDOMINAL WALL, INITIAL ENCOUNTER SNOMED Code(s): 643973816
[2018-10-27] MEDS: ACETAMINOPHEN TAB 325 MG TAB PO PRN (15:55)
[2018-10-27] MEDS: CALCIUM CARB-VIT D 500MG-200UN 1 EACH TAB PO SCH (16:00)
[2018-10-27 17:08] LABS: Glucose,Whole Blood 192 mg/dL (75-99)
--- NOTE | 2018-10-27 19:20 | P.PN ---
Subjective This is a pleasant 73 years old female with past medical history of congestive, atrial fibrillation, GERD, hyperlipidemia, hypertension, hypothyroidism, diabetes mellitus type 2, diabetic neuropathy, sarcoidosis, multiple drug ALLERGY, legally blind, ulcerative colitis, frequent falls. This time patient presents because of abdominal pain. Patient is not very good historian. She wasn't sure when the hospital but she stated she has abdominal pain in the right lower quadrant secondary to hematoma, which is evident on abdominal exam as right lower quadrant fluctuating swelling. Patient also has suprapubic tenderness and some epigastric tenderness but they are milder. She complains from cough and phlegm, patient not sure which covered his however patient states that is been going on every day as she has history of asthma. She denies dysuria or change in frequency however she has suprapubic tenderness. In the emergency room, vitals were stable, she is saturating 95% on 2 L oxygen. WBC 3.4K, hemoglobin 10.9. Platelets 112. Sodium 133. Creatinine 1.08. Potassium 4.5. Liver enzymes mildly elevated. Urinalysis is suspicious for infection. CT of the abdomen and pelvis with IV contrast showing bilateral pleural effusion, left more than right with possible underlying infiltrate. Urine culture and sputum cultures are ordered. 10/26/2018 Patient is more confused today and or difficult to wake up. She is developing acute renal failure with trending up creatinine from 1.0 to 1.6, her potassium is slightly elevated. And hemoglobin dropped from 10 down to 7.3. The hematoma mass on her lower anterior abdominal area it looks the same while it is demarcated however patient has new bruises on the right flank area. With call GI consult and transfuse 1 unit of blood. also add iron pills. Hold Lasix and potassium, give 1 dose of Kayexalate. And increase IV fluids.GI consult is appreciated and the recommend repeat colonoscopy in 4-6 weeks. patient likely has pneumonia as she has no respiratory symptoms. 10/27/18 pt is more awake today , no more pallor, no chest pain or dyspena , still has abdominal pain at the hematoma side, which looks stable, as well as the ecchysmosis on the right flank. pt still has some tenderness in the suparpubic region and around the umbilicus. vital are stable , pt hypotension is improved and her BP is133/89, HT 55 , RR 16 and saturating 99% on 3 L oxygen. hemoglobin improved 6.7 to 8.2 after 3 units of blood transfusion. creatinine 2.0 abd J: 4.5. pt remains in the ICU currently for close monitoring , critical care and GI team follow up is appreciated. her urine culture is growing psuedomonas and proteus, pt is on aztreonam and flagyl, no diarrhea Review of system: CONSTITUTIONAL: No fever, no malaise, no fatigue. HEENT: No recent visual problems or hearing problems. Denied any sore throat. CARDIOVASCULAR: No orthopnea, PND, no palpitations, no syncope. PULMONARY: No shortness of breath, no cough, no hemoptysis. GASTROINTESTINAL: No diarrhea, no nausea, no vomiting, Normoactive bowel sounds. NEUROLOGICAL: No headaches, no weakness, no numbness. MUSCULOSKELETAL/RHEUMATOLOGICAL: Denies any joint pain, swelling, or any muscle pain. ENDOCRINE: Denies any polyuria or polydipsia. Medication: Tylenol, albuterol, amiodarone, Lipitor, aztreonam, Symbicort, calcium, Sinemet, Colace, vitamin D, iron pill,Levemir insulin, Synthroid, Ativan, milk of magnesia, Lopressor, Flagyl, Zofran, Protonix, troponin, sodium chloride, Desyrel, Effexor. Objective - Vital Signs Vital signs: Vital Signs Temp 97 F L 10/27/18 13:00 Pulse 55 L 10/27/18 15:00 Resp 16 10/27/18 15:37 BP 133/89 10/27/18 15:00 Pulse Ox 99 10/27/18 15:00 Intake & Output 10/27/18 10/27/18 10/28/18 06:59 18:59 06:59 Intake Total 1175 860 Output Total 580 170 Balance 595 690 Weight 63 kg Intake: IV 1075 550 Aztreonam 1 gm In Sodium 50 Chloride 0.9% 50 ml @ 100 mls/hr IVPB Q12HR [facility] Rx #:[id number] Magnesium Sulfate-D5w Pmx 200 1 gm In Dextrose/Water 1 100ml.bag @ 100 mls/hr IVPB ONCE ONE Rx#: [id number] Sodium Chloride 0.9% 1, 725 250 000 ml @ 50 mls/hr IV . Q20H [facility] Rx#:[id number] metroNIDAZOLE-NS PMX 500 100 300 mg In Saline 1 100ml.bag @ 100 mls/hr IVPB Q8HR [facility] Rx#:[id number] Oral 100 Blood Product 310 Rc As-1 Unit 310 [id number] Output: Urine 580 170 Other: Voiding Method Indwelling Catheter Indwelling Catheter - Exam -GENERAL: The patient is more awake and alert, not in any acute distress. HEENT: Pupils are round and equally reacting to light. EOMI. No scleral icterus. No conjunctival pallor. Normocephalic, atraumatic. No pharyngeal erythema. No thyromegaly. CARDIOVASCULAR: S1 and S2 present. No murmurs, rubs, or gallops. PULMONARY: Chest is clear to auscultation, no wheezing or crackles. -ABDOMEN: Soft, nontender, nondistended, normoactive bowel sounds. No palpable organomegaly. RLQ tender swelling is stable in size , as well as the right flank echymosis is stable as well MUSCULOSKELETAL: No joint swelling or deformity. EXTREMITIES: No cyanosis, clubbing, or pedal edema. NEUROLOGICAL: Gross neurological examination did not reveal any focal deficits. SKIN: No rashes. - Labs CBC & Chem 7: 10/27/18 13:35 10/27/18 04:36 Labs: Abnormal Lab Results - Last 24 Hours (Table) 10/24/18 10/26/18 10/26/18 Range/Units 14:05 13:43 20:27 RBC (3.80-5.40) m/uL Hgb (11.4-16.0) gm/dL Hct (34.0-46.0) % RDW (11.5-15.5) % Plt Count (150-450) k/uL Lymphocytes # (1.0-4.8) k/uL Sodium (137-145) mmol/L Chloride (98-107) mmol/L BUN (7-17) mg/dL Creatinine (0.52-1.04) mg/dL Glucose (74-99) mg/dL POC Glucose (mg/dL) 190 H (75-99) mg/dL Calcium (8.4-10.2) mg/dL Free T4 2.72 H (0.78-2.19) ng/dL Crossmatch See Detail 0210/27/18 10/27/18 Range/Units 04:36 04:36 06:58 RBC 2.00 L (3.80-5.40) m/uL Hgb 6.7 L* (11.4-16.0) gm/dL Hct 19.8 L* (34.0-46.0) % RDW 15.6 H (11.5-15.5) % Plt Count 146 L (150-450) k/uL Lymphocytes # 0.5 L (1.0-4.8) k/uL Sodium 134 L (137-145) mmol/L Chloride 97 L (98-107) mmol/L BUN 48 H (7-17) mg/dL Creatinine 2.00 H (0.52-1.04) mg/dL Glucose 113 H (74-99) mg/dL POC Glucose (mg/dL) 177 H (75-99) mg/dL Calcium 7.9 L (8.4-10.2) mg/dL Free T4 (0.78-2.19) ng/dL Crossmatch 10/27/18 10/27/18 10/27/18 Range/Units 11:48 13:35 17:07 RBC 2.62 L (3.80-5.40) m/uL Hgb 8.2 L D (11.4-16.0) gm/dL Hct 25.3 L (34.0-46.0) % RDW 17.1 H (11.5-15.5) % Plt Count 124 L (150-450) k/uL Lymphocytes # (1.0-4.8) k/uL Sodium (137-145) mmol/L Chloride (98-107) mmol/L BUN (7-17) mg/dL Creatinine (0.52-1.04) mg/dL Glucose (74-99) mg/dL POC Glucose (mg/dL) 137 H 192 H (75-99) mg/dL Calcium (8.4-10.2) mg/dL Free T4 (0.78-2.19) ng/dL Crossmatch Microbiology - Last 24 Hours (Table) 10/24/18 18:10 Urine Culture - Final Urine,Catheterized Proteus vulgaris Pseudomonas aeruginosa 10/24/18 19:52 Blood Culture - Preliminary Blood No Growth after 48 hours Assessment and Plan Assessment: acute delirium Abdominal pain, mostly related to proctocolitis. abdominal wall hematoma Acute a drop in hemoglobin with blood loss anemia. Acute kidney injury with hyperkalemia Urinary tract infection Possible cirrhosis of the liver with portal hypertension Abdominal wall hematoma measuring 8.7 x 5.1 x 4.7 centimeters History of congestive heart failure History of atrial fibrillation, rate control. Not on anticoagulation History of GERD Hyperlipidemia Essential hypertension History of hypothyroidism Diabetes mellitus, type II Diabetic neuropathy History of sarcoidosis History of multiple drug ALLERGIES Patient is legally blind History of ulcerative colitis History of frequent falls Plan: This is a pleasant 73 years old female who presents with proctocolitis and abdominal wall hematoma, possible sepsis and continue with antibiotics. We'll check for C. diff.transfuse blood and call surgical consult. Labs and medication were reviewed.. Continue same treatment. Continue with symptomatic treatment. Resume home medication. Monitor lytes and vitals. DVT and GI prophylaxis. Further recommendations of the clinical course of the patient DVT prophylaxis: no heparin for now in view of pt hematoma GI Prophylaxis: Pepcid PT/OT: Pending Prognosis is guarded and poor
[2018-10-27 20:53] LABS: Glucose,Whole Blood 162 mg/dL (75-99)
[2018-10-27] MEDS: ATORVASTATIN 10 MG TAB PO SCH (20:59)
[2018-10-27] MEDS: OXYBUTYNIN 10 MG TAB.ER.24 PO SCH (21:00)
[2018-10-27] MEDS: MELATONIN 1 MG TAB PO SCH (21:00)
[2018-10-27] MEDS: traZODone HCL 50 MG TAB PO SCH (21:01)
--- NOTE | 2018-10-27 21:07 | P.PN ---
Subjective Progress Note Date: 10/27/18 Principal diagnosis: Colitis, abdominal pain Patient seen lying in bed earlier in the day still complaining of abdominal tenderness. No nausea or vomiting. No signs or symptoms of GI bleeding reported. Objective - Vital Signs Vital signs: Vital Signs Temp 97.6 F 10/27/18 20:00 Pulse 56 L 10/27/18 20:00 Resp 15 10/27/18 20:00 BP 143/108 10/27/18 20:00 Pulse Ox 99 10/27/18 20:00 Intake & Output 10/27/18 10/27/18 10/28/18 06:59 18:59 06:59 Intake Total 1175 860 Output Total 580 170 Balance 595 690 Weight 63 kg Intake: IV 1075 550 Aztreonam 1 gm In Sodium 50 Chloride 0.9% 50 ml @ 100 mls/hr IVPB Q12HR [facility] Rx #:[id number] Magnesium Sulfate-D5w Pmx 200 1 gm In Dextrose/Water 1 100ml.bag @ 100 mls/hr IVPB ONCE ONE Rx#: [id number] Sodium Chloride 0.9% 1, 725 250 000 ml @ 50 mls/hr IV . Q20H [facility] Rx#:[id number] metroNIDAZOLE-NS PMX 500 100 300 mg In Saline 1 100ml.bag @ 100 mls/hr IVPB Q8HR [facility] Rx#:[id number] Oral 100 Blood Product 310 Rc As-1 Unit 310 [id number] Output: Urine 580 170 Other: Voiding Method Indwelling Catheter Indwelling Catheter - Exam On physical examination, patient appears comfortable in no apparent distress. HEAD: Normocephalic, atraumatic. EYES: No scleral icterus. No conjunctival injection. MOUTH: No lesions, tongue midline. NECK: Trachea midline, no gross abnormalities. CHEST: Decreased air entry in all lung douglas. HEART: Irregularly irregular. ABDOMEN: Soft, obese, tender to palpation in right quadrant of the abdomen where hematoma appears to be stable in size, diffuse bruising noted. Bowel sounds are positive. No organomegaly. No guarding or rigidity. EXTREMITIES: No pedal edema. SKIN: No jaundice. NEUROLOGIC: Alert. No focal deficits. - Labs CBC & Chem 7: 10/27/18 13:35 10/27/18 04:36 Labs: Abnormal Lab Results - Last 24 Hours (Table) 10/26/18 10/27/18 10/27/18 Range/Units 13:43 04:36 04:36 RBC 2.00 L (3.80-5.40) m/uL Hgb 6.7 L* (11.4-16.0) gm/dL Hct 19.8 L* (34.0-46.0) % RDW 15.6 H (11.5-15.5) % Plt Count 146 L (150-450) k/uL Lymphocytes # 0.5 L (1.0-4.8) k/uL Sodium 134 L (137-145) mmol/L Chloride 97 L (98-107) mmol/L BUN 48 H (7-17) mg/dL Creatinine 2.00 H (0.52-1.04) mg/dL Glucose 113 H (74-99) mg/dL POC Glucose (mg/dL) (75-99) mg/dL Calcium 7.9 L (8.4-10.2) mg/dL Crossmatch See Detail 10/27/18 10/27/18 10/27/18 Range/Units 06:58 11:48 13:35 RBC 2.62 L (3.80-5.40) m/uL Hgb 8.2 L D (11.4-16.0) gm/dL Hct 25.3 L (34.0-46.0) % RDW 17.1 H (11.5-15.5) % Plt Count 124 L (150-450) k/uL Lymphocytes # (1.0-4.8) k/uL Sodium (137-145) mmol/L Chloride (98-107) mmol/L BUN (7-17) mg/dL Creatinine (0.52-1.04) mg/dL Glucose (74-99) mg/dL POC Glucose (mg/dL) 177 H 137 H (75-99) mg/dL Calcium (8.4-10.2) mg/dL Crossmatch 10/27/18 10/27/18 Range/Units 17:07 20:52 RBC (3.80-5.40) m/uL Hgb (11.4-16.0) gm/dL Hct (34.0-46.0) % RDW (11.5-15.5) % Plt Count (150-450) k/uL Lymphocytes # (1.0-4.8) k/uL Sodium (137-145) mmol/L Chloride (98-107) mmol/L BUN (7-17) mg/dL Creatinine (0.52-1.04) mg/dL Glucose (74-99) mg/dL POC Glucose (mg/dL) 192 H 162 H (75-99) mg/dL Calcium (8.4-10.2) mg/dL Crossmatch Microbiology - Last 24 Hours (Table) 10/24/18 18:10 Urine Culture - Final Urine,Catheterized Proteus vulgaris Pseudomonas aeruginosa 10/24/18 19:52 Blood Culture - Preliminary Blood No Growth after 48 hours Assessment and Plan (1) Colitis Narrative/Plan: Patient denying any change in bowel habits, diarrhea, constipation, hematochezia or melena but was found to have perirectal thickening on computed tomography scan of the abdomen. Currently she is receiving antibiotic treatment. Current Visit: Yes Status: Acute Code(s): K52.9 - NONINFECTIVE GASTROENTERITIS AND COLITIS, UNSPECIFIED SNOMED Code(s): 14506422 (2) Abdominal hematoma Current Visit: Yes Status: Acute Code(s): S30.1XXA - CONTUSION OF ABDOMINAL WALL, INITIAL ENCOUNTER SNOMED Code(s): 393145595 (3) Abnormal liver diagnostic imaging Narrative/Plan: Cirrhotic-appearing liver on imaging with thrombocytopenia and elevation in liver enzymes suggestive of cirrhosis, however definitive diagnosis cannot be made without fibroscan or biopsy. Likely related to metabolic syndrome and nonalcoholic steatohepatitis. Current Visit: Yes Status: Acute Code(s): R93.2 - ABNORMAL FINDINGS ON DX IMAGING OF LIVER AND BILIARY TRACT SNOMED Code(s): 189684662 Plan: Supportive care Okay for diet, low-sodium Monitor stool output Continue antibiotic therapy, currently receiving aztreonam and Flagyl Patient unclear about the exact date of last colonoscopy, however given findings of colitis on computed tomography scan would recommend repeat endoscopy in 4-6 weeks after completion of antibiotic therapy hemoglobin is stable after transfusion with PRBCs ordered and K Centra for reversal Eliquis Surgical service following Thank you for allowing us to participate in the care of this patient, the gastroenterology service will stand by, please call us back with any questions or concerns
--- NOTE | 2018-10-27 23:29 | PN ---
PROGRESS NOTE DATE OF SERVICE: 10/27/2018 REASON FOR FOLLOWUP: 1. Pseudomonas urinary tract infection. 2. Possible colitis. INTERVAL HISTORY: The patient is afebrile. She is more awake and alert today. She is breathing comfortably. The patient denies having any worsening abdominal pain or any diarrhea. PHYSICAL EXAMINATION: Blood pressure 143/100 with a pulse of 56, temperature 97.6. She is 99% on 3 L nasal cannula. General description is an elderly female lying in bed in no distress. RESPIRATORY SYSTEM: Unlabored breathing. Clear to auscultation anteriorly. HEART: S1, S2. Regular rate and rhythm. ABDOMEN: Right-sided hematoma that does not seem to have extended from the line that was placed yesterday. EXTREMITIES: Trace edema of feet. LABS: Hemoglobin 8.2 with a white count of 5.3. Urine has been finalized as Proteus vulgaris and Pseudomonas aeruginosa. DIAGNOSTIC IMPRESSION AND PLAN: Patient with initial admission to hospital with concern for possible colitis in this patient who did have a component of urinary tract infection with significantly positive urinalysis, culture now showing pseudomonas and Proteus vulgaris. Patient does have MULTIPLE ANTIBIOTIC ALLERGIES currently covered with Azactam the patient is on. That will be continued for now while watching her clinical course closely. Continue supportive care. MMODL / IJN: [id number] /
[2018-10-28] MEDS: SODIUM CHLORIDE 0.9% 1,000 ML IV SCH ×3 (00:25→17:37)
[2018-10-28] MEDS: metroNIDAZOLE-NS PMX 500 MG in SALINE 1 100ML.BAG IVPB SCH ×4 (00:25→23:35)
[2018-10-28 04:31] LABS: Anisocytosis Slight; Basophils % (A) 0 %; Eosinophils # (A) 0.1 k/uL (0-0.7); Eosinophils % (A) 2 %; HCT 23.9 % (34.0-46.0); HGB 7.9 gm/dL (11.4-16.0); Lymphocytes # (A) 0.5 k/uL (1.0-4.8); Lymphocytes % (A) 12 %; MCH 31.7 pg (25.0-35.0); MCHC 33.1 g/dL (31.0-37.0); MCV 95.9 fL (80.0-100.0); Mean Platelet Volume 6.9; Monocytes # (A) 0.4 k/uL (0-1.0); Monocytes % (A) 8 %; Neutrophils # (A) 3.4 k/uL (1.3-7.7); Neutrophils % (A) 76 %; Platelet Count 126 k/uL (150-450); RBC 2.49 m/uL (3.80-5.40); RDW 17.2 % (11.5-15.5); WBC 4.5 k/uL (3.8-10.6)
[2018-10-28 04:46] LABS: Calcium 8.1 mg/dL (8.4-10.2); Magnesium 2.2 mg/dL (1.6-2.3); Potassium 3.9 mmol/L (3.5-5.1)
[2018-10-28 04:54] LABS: Glucose,Whole Blood 58 mg/dL (75-99)
[2018-10-28] MEDS ORDERED: DEXTROSE 50%-WATER 50 ML SYRINGE IVP STA (04:54)
[2018-10-28 05:25] LABS: Glucose,Whole Blood 174 mg/dL (75-99)
[2018-10-28] MEDS: LEVOTHYROXINE 137 MCG TAB PO SCH (06:11)
[2018-10-28] MEDS: CARBIDOPA-LEVODOPA 25-100 MG 1 EACH TAB PO SCH ×3 (06:11→21:00)
[2018-10-28] MEDS: IPRATROPIUM-ALBUTEROL 3 ML NEB INHALATION SCH ×2 (06:57→19:36)
[2018-10-28] MEDS: SYMBICORT 160-4.5 MCG INHALER INHALATION SCH ×2 (06:57→19:36)
[2018-10-28 07:00] LABS: Glucose,Whole Blood 138 mg/dL (75-99)
--- NOTE | 2018-10-28 08:54 | XR ---
EXAMINATION TYPE: XR chest 1V DATE OF EXAM: 10/28/2018 COMPARISON: Prior chest 10/27/2018 HISTORY: Pleural effusion TECHNIQUE: Single frontal view of the chest is obtained. FINDINGS: Findings are similar to prior exam. Suspect some improvement in the interstitium, aeration . Pleural effusion persists. Heart remains enlarged. No pneumothorax. IMPRESSION: There may be some slight improvement in volume status, aeration. Additional follow-up re commended.
[2018-10-28] MEDS: INSULIN ASPART (NovoLOG) 100 UNIT/ML VIAL SQ SCH ×4 (08:58→20:59)
[2018-10-28] MEDS: NON-FORMULARY DRUG (Teriparatide [Forteo] 20 MCG) SQ SCH (08:59)
[2018-10-28] MEDS: PANTOPRAZOLE 40 MG/10 ML VIAL IV SCH (09:07)
[2018-10-28] MEDS: MAGNESIUM OXIDE 400 MG TAB PO SCH (09:08)
[2018-10-28] MEDS: FERROUS SULFATE 325 MG TAB PO SCH ×2 (09:08→15:59)
[2018-10-28] MEDS: VENLAFAXINE HCL ER 75 MG CAP PO SCH (09:08)
[2018-10-28] MEDS: PRIMIDONE 50 MG TAB PO SCH (09:08)
[2018-10-28] MEDS: AZTREONAM 1 GM in SODIUM CHLORIDE 0.9% 50 ML IVPB SCH ×2 (09:08→20:57)
[2018-10-28] MEDS: AMMONIUM LACTATE 12% LOTION 225 GM BTL TOPICAL SCH (09:08)
--- NOTE | 2018-10-28 10:33 | PN ---
PROGRESS NOTE Mrs. Chou is a 73-year-old female who presented with severe anemia and abdominal discomfort, was found to have an abdominal wall hematoma. She was transfused yesterday. She is alert, confused at times. She has no chest discomfort. Her blood pressure is stable. She denies any dizziness or palpitation. No nausea. She continues to have abdominal discomfort. She is in atrial fibrillation with no evidence of significant bradycardia. She had an episode of hypotension on the floor prior to transfer to the ICU when she got up. Her chest x-ray continued to show evidence of left-sided effusion and that has been evaluated for possible thoracentesis and she underwent ultrasound of the chest yesterday that revealed a left pleural effusion pocket measuring 7.1 cm. She continues to be at this time on Lipitor 10 mg daily, Sinemet, iron. She received 1 dose of Lasix yesterday. PHYSICAL EXAMINATION: Blood pressure 117/50 with the heart rate in 60s. LUNGS: With decreased breath sounds at the left base. No wheezes. HEART: Irregular, irregular/ S1, S2. No S3 with a systolic murmur. ABDOMEN: Soft. Hematoma noted in the right abdominal area. EXTREMITIES: No significant edema. LAB DATA: Lab data revealed a creatinine of 1.87, potassium 3.9, BUN of 52. Hemoglobin up to 7.9 after the transfusion. IMPRESSION: 1. Severe anemia, symptomatic related to hematoma in the abdominal wall. 2. Chronic persistent atrial fibrillation. 3. Left-sided pleural effusion. 4. Renal failure. 5. History of carotid disease. 6. Diabetes mellitus. 7. History of disease. RECOMMENDATION: From the cardiac standpoint, we will continue present therapy. Anticoagulation is on hold at this point. The patient is not a candidate for anticoagulation in view of her presentation. We will continue to follow her renal function. Continue to follow her pleural effusion to see if thoracentesis is needed. MMODL / IJN: [id number] /
--- NOTE | 2018-10-28 10:42 | P.PN ---
<Evelin Wyatt A - Last Filed: 10/28/18 10:36> Subjective Progress Note Date: 10/28/18 CHIEF COMPLAINT: abdominal wall hematoma HISTORY OF PRESENT ILLNESS: Patient examined at the bedside. Reports she is tired and wants to sleep. Reports abdominal pain has improved. Denies nausea or vomiting. Tolerating PO intake. Hemoglobin is stable at 7.9. PHYSICAL EXAM: VITAL SIGNS: Currently stable. GENERAL: Well-developed in no acute distress. HEENT: No sclera icterus. Extraocular movements grossly intact. Moist buccal mucosa. Head is atraumatic, normocephalic. Hears conversational speech. No nasal drainage. NECK: Supple without lymphadenopathy. CHEST: Non-labored respirations and equal bilateral excursions. CARDIOVASCULAR: Regular rate with regular rhythm. Palpable 2+ radial pulses. ABDOMEN: Soft. Right abdominal wall hematoma with ecchymosis. Minimal pain upon palpation. MUSCULOSKELETAL: No clubbing, cyanosis or edema. NEUROLOGIC: No focal or lateralizing signs. Cranial nerves II through XII grossly intact. PSYCH: Appropriate affect. Alert and oriented to person, place and time. SKIN: Well perfused. Good skin turgor. ASSESSMENT: 1. Abdominal wall hematoma 2. Acute blood loss anemia, secondary to above, s/p transfusion 2 units RBC PLAN: 1. Continue to monitor hemoglobin 2. No plans for surgical intervention at this time Nurse practitioner note has been reviewed by physician. Signing provider agrees with the documented findings, assessment, and plan of care. Objective - Vital Signs Vital signs: Vital Signs Temp 97.6 F 10/28/18 08:00 Pulse 64 10/28/18 09:00 Resp 15 10/28/18 09:00 BP 133/87 10/28/18 09:00 Pulse Ox 100 10/28/18 09:00 Intake & Output 10/27/18 10/28/18 10/28/18 18:59 06:59 18:59 Intake Total 860 550 150 Output Total 170 125 170 Balance 690 425 -20 Weight 59.8 kg Intake: IV 550 550 150 Aztreonam 1 gm In Sodium 100 Chloride 0.9% 50 ml @ 100 mls/hr IVPB Q12HR [facility] Rx #:[id number] Sodium Chloride 0.9% 1, 250 450 50 000 ml @ 50 mls/hr IV . Q20H [facility] Rx#:[id number] metroNIDAZOLE-NS PMX 500 300 100 mg In Saline 1 100ml.bag @ 100 mls/hr IVPB Q8HR [facility] Rx#:[id number] Blood Product 310 Rc As-1 Unit 310 [id number] Output: Urine 170 125 170 Other: Voiding Method Indwelling Catheter Indwelling Catheter - Labs CBC & Chem 7: 10/28/18 04:20 10/28/18 04:20 Labs: Abnormal Lab Results - Last 24 Hours (Table) 10/27/18 10/27/18 10/27/18 Range/Units 11:48 13:35 17:07 RBC 2.62 L (3.80-5.40) m/uL Hgb 8.2 L D (11.4-16.0) gm/dL Hct 25.3 L (34.0-46.0) % RDW 17.1 H (11.5-15.5) % Plt Count 124 L (150-450) k/uL Lymphocytes # (1.0-4.8) k/uL Sodium (137-145) mmol/L Chloride (98-107) mmol/L BUN (7-17) mg/dL Creatinine (0.52-1.04) mg/dL Glucose (74-99) mg/dL POC Glucose (mg/dL) 137 H 192 H (75-99) mg/dL Calcium (8.4-10.2) mg/dL 10/27/18 10/28/18 10/28/18 Range/Units 20:52 04:20 04:20 RBC 2.49 L (3.80-5.40) m/uL Hgb 7.9 L (11.4-16.0) gm/dL Hct 23.9 L (34.0-46.0) % RDW 17.2 H (11.5-15.5) % Plt Count 126 L (150-450) k/uL Lymphocytes # 0.5 L (1.0-4.8) k/uL Sodium 131 L (137-145) mmol/L Chloride 96 L (98-107) mmol/L BUN 52 H (7-17) mg/dL Creatinine 1.87 H (0.52-1.04) mg/dL Glucose 48 L* (74-99) mg/dL POC Glucose (mg/dL) 162 H (75-99) mg/dL Calcium 8.1 L (8.4-10.2) mg/dL 10/28/18 10/28/18 10/28/18 Range/Units 04:52 05:23 06:58 RBC (3.80-5.40) m/uL Hgb (11.4-16.0) gm/dL Hct (34.0-46.0) % RDW (11.5-15.5) % Plt Count (150-450) k/uL Lymphocytes # (1.0-4.8) k/uL Sodium (137-145) mmol/L Chloride (98-107) mmol/L BUN (7-17) mg/dL Creatinine (0.52-1.04) mg/dL Glucose (74-99) mg/dL POC Glucose (mg/dL) 58 L 174 H 138 H (75-99) mg/dL Calcium (8.4-10.2) mg/dL Microbiology - Last 24 Hours (Table) 10/24/18 19:52 Blood Culture - Preliminary Blood No Growth after 72 hours 10/24/18 18:10 Urine Culture - Final Urine,Catheterized Proteus vulgaris Pseudomonas aeruginosa <Kal Goncalves - Last Filed: 10/28/18 16:37> Subjective As above. Patient doing better. Hemoglobin stable. Hematoma site remains mildly tender. No increase in size. Ecchymosis has increased as expected. We' ll follow on an as-needed basis. Objective - Vital Signs Vital signs: Vital Signs Temp 98.7 F 10/28/18 16:00 Pulse 66 10/28/18 16:10 Resp 23 10/28/18 16:00 BP 118/73 10/28/18 16:00 Pulse Ox 100 10/28/18 16:00 Intake & Output 10/27/18 10/28/18 10/28/18 18:59 06:59 18:59 Intake Total 860 550 400 Output Total 170 125 372 Balance 690 425 28 Weight 59.8 kg Intake: IV 550 550 400 Aztreonam 1 gm In Sodium 100 50 Chloride 0.9% 50 ml @ 100 mls/hr IVPB Q12HR [facility] Rx #:[id number] Sodium Chloride 0.9% 1, 250 450 150 000 ml @ 50 mls/hr IV . Q20H [facility] Rx#:[id number] metroNIDAZOLE-NS PMX 500 300 200 mg In Saline 1 100ml.bag @ 100 mls/hr IVPB Q8HR [facility] Rx#:[id number] Blood Product 310 Rc As-1 Unit 310 [id number] Output: Urine 170 125 372 Other: Voiding Method Indwelling Catheter Indwelling Catheter Indwelling Catheter - Labs CBC & Chem 7: 10/28/18 04:20 10/28/18 04:20 Labs: Abnormal Lab Results - Last 24 Hours (Table) 10/27/18 10/27/18 10/28/18 Range/Units 17:07 20:52 04:20 RBC 2.49 L (3.80-5.40) m/uL Hgb 7.9 L (11.4-16.0) gm/dL Hct 23.9 L (34.0-46.0) % RDW 17.2 H (11.5-15.5) % Plt Count 126 L (150-450) k/uL Lymphocytes # 0.5 L (1.0-4.8) k/uL Sodium (137-145) mmol/L Chloride (98-107) mmol/L BUN (7-17) mg/dL Creatinine (0.52-1.04) mg/dL Glucose (74-99) mg/dL POC Glucose (mg/dL) 192 H 162 H (75-99) mg/dL Calcium (8.4-10.2) mg/dL 10/28/18 10/28/18 10/28/18 Range/Units 04:20 04:52 05:23 RBC (3.80-5.40) m/uL Hgb (11.4-16.0) gm/dL Hct (34.0-46.0) % RDW (11.5-15.5) % Plt Count (150-450) k/uL Lymphocytes # (1.0-4.8) k/uL Sodium 131 L (137-145) mmol/L Chloride 96 L (98-107) mmol/L BUN 52 H (7-17) mg/dL Creatinine 1.87 H (0.52-1.04) mg/dL Glucose 48 L* (74-99) mg/dL POC Glucose (mg/dL) 58 L 174 H (75-99) mg/dL Calcium 8.1 L (8.4-10.2) mg/dL 10/28/18 10/28/18 Range/Units 06:58 11:26 RBC (3.80-5.40) m/uL Hgb (11.4-16.0) gm/dL Hct (34.0-46.0) % RDW (11.5-15.5) % Plt Count (150-450) k/uL Lymphocytes # (1.0-4.8) k/uL Sodium (137-145) mmol/L Chloride (98-107) mmol/L BUN (7-17) mg/dL Creatinine (0.52-1.04) mg/dL Glucose (74-99) mg/dL POC Glucose (mg/dL) 138 H 114 H (75-99) mg/dL Calcium (8.4-10.2) mg/dL Microbiology - Last 24 Hours (Table) 10/24/18 19:52 Blood Culture - Preliminary Blood No Growth after 72 hours Assessment and Plan (1) Abdominal hematoma Current Visit: Yes Status: Acute Code(s): S30.1XXA - CONTUSION OF ABDOMINAL WALL, INITIAL ENCOUNTER SNOMED Code(s): 295461862
[2018-10-28 11:27] LABS: Glucose,Whole Blood 114 mg/dL (75-99)
[2018-10-28] MEDS: ONDANSETRON 4 MG/2 ML VIAL IVP PRN (13:36)
[2018-10-28] MEDS: ACETAMINOPHEN TAB 325 MG TAB PO PRN ×2 (13:36→23:35)
[2018-10-28] MEDS: INSULIN DETEMIR (LEVEMIR) 100 UNIT/ML SYR SQ SCH (15:24)
[2018-10-28] MEDS: IPRATROPIUM-ALBUTEROL 3 ML NEB INHALATION PRN (15:55)
[2018-10-28] MEDS: CALCIUM CARB-VIT D 500MG-200UN 1 EACH TAB PO SCH (15:59)
[2018-10-28 16:40] LABS: Glucose,Whole Blood 202 mg/dL (75-99)
--- NOTE | 2018-10-28 16:52 | P.PN ---
Subjective Progress Note Date: 10/28/18 Principal diagnosis: Abdominal wall hematoma and anemia secondary to blood loss This 73-year-old white female patient of Dr. Morales, with multiple medical problems, including chronic atrial fibrillation on chronic anticoagulation, chronic congestive heart failure, COPD, diabetes mellitus type 2, hypertension, hyperlipidemia, chronic kidney disease, hypothyroidism, Parkinson's, previous stroke with left eye blindness, DJD, gait dysfunction, ulcerative colitis, recurrent urinary tract infections with previous history of vancomycin- resistant enterococcus UTI. Patient was recently hospitalized in September for mental status changes, hyponatremia, acute exacerbation of CHF with diastolic dysfunction, slurred speech and a right facial droop. Computed tomography scan of the brain did not show an acute intracranial process. She was found to have significant bilateral carotid artery stenosis of greater than 70%. MRI scan of the brain did reveal right nonhemorrhagic ophthalmic infarct. Patient does have lower extremity wounds, and following discharge from the hospital she was sent to the [facility] on IV vancomycin. Blood culture showed evidence of MSSA, however patient had multiple ALLERGIES including to cephalosporins, therefore requiring vancomycin infusions.On 10/24/2018 patient was brought to the emergency department per EMS from the [facility] for evaluation of developing hematoma over the right lower quadrant of her abdomen, which has been developing over a period of time but is now acutely tender and painful. Patient denied any recent fall, or trauma to the area. She has been having occasional fevers and chills area. Denied any chest pain, shortness of breath, cough, chest congestion. She had recently finished a lengthy course of IV vancomycin. She has a chronic indwelling Smith catheter in place, due to concern for frequent falls and inability to ambulate. Blood work on 10/24/2018 revealed a white blood cell count of 3.4, hemoglobin of 10.9, sodium was 133, potassium is 4.5, chloride is 90, CO2 is 38, B1 is 37, creatinine is 1.08. Amylase was less than 30, lipase was 16. ProBNP was 2230. Urinalysis showed small amount of blood, large amount white blood cells, related to underlying urinary tract infection. Patient was also having some abdominal discomfort. She was placed on a combination of Azactam and Flagyl. She has been afebrile during this admission. This morning patient was getting up to the bathroom, when she became briefly unresponsive, she was bradycardic with a heart rate in the 30s, and hypotensive. She was placed back in bed and she came to. She was given IV fluid bolus, stat CT of the abdomen and pelvis was obtained, and showed a large hematoma involving or overlying the right external oblique, measuring 8.8 x 5.0 x 7.3 cm. The blood work was obtained, and showed hemoglobin down to 6.6, sodium 132, potassium is 5.9, BUN 42, creatinine is 1.84. She was transferred to the intensive care unit for further monitoring, she is being transfused with 1 unit of packed red blood cells. And this consult was initiated. Currently blood pressure is 98/58, heart rate is 52, pulse ox is 94% on 3 L, patient is afebrile, she is pale, but in no acute distress. Denies any chest pain or shortness of breath Patient was reevaluated today on 10/27/2018, feeling better, no further episodes of syncope since she was admitted to the intensive care unit. He received so far a total of 2 units of packed RBCs, hemoglobin was 6.7 this morning, and Nexium hemoglobin is pending after the last unit of packed RBCs given. Patient is hemodynamically stable. Chest x-ray showed evidence of congestive heart failure with good sized left-sided pleural effusion further noted on ultrasound the chest, may or may not require thoracentesis. In the meantime we'll try to diuretics for what seems to be a picture of congestive heart failure and fluid overload urine culture came back positive for Pseudomonas and Proteus, and that is being addressed by infectious disease on the case. Renal profile today is a bit worse, BUN is 48 creatinine is 2.0. Baseline creatinine on admission was 1.08. Clinically however the patient is feeling better. Continues to have good sized hematoma in the right lower quadrant area. Reevaluated today on 10/28/2018, patient had no further syncopal episodes, seems to be quite comfortable in the ICU. Hemodynamically stable. Received a total of 2 units of packed RBCs for her blood loss and abdominal wall hematoma.hemoglobin today is 7.9. Platelets are 126,000.all her labs were reviewed, and she had a relatively normal electrolytes, BUN is 52 creatinine is down to 1.87 from 2.0 yesterday.chest x-ray continues to show moderate left- sided pleural effusion, patient has been reluctant about having thoracentesis. In the meantime she is receiving diuretics.and I plan to give her diuretics again today she did receive 20 mg IV push yesterday.however I have a feeling that the patient may eventually require thoracentesis if she is agreeable to have it done. Objective - Vital Signs Vital signs: Vital Signs Temp 98.7 F 10/28/18 16:00 Pulse 66 10/28/18 16:10 Resp 23 10/28/18 16:00 BP 118/73 10/28/18 16:00 Pulse Ox 100 10/28/18 16:00 Intake & Output 10/27/18 10/28/18 10/28/18 18:59 06:59 18:59 Intake Total 860 550 400 Output Total 170 125 372 Balance 690 425 28 Weight 59.8 kg Intake: IV 550 550 400 Aztreonam 1 gm In Sodium 100 50 Chloride 0.9% 50 ml @ 100 mls/hr IVPB Q12HR [facility] Rx #:[id number] Sodium Chloride 0.9% 1, 250 450 150 000 ml @ 50 mls/hr IV . Q20H [facility] Rx#:[id number] metroNIDAZOLE-NS PMX 500 300 200 mg In Saline 1 100ml.bag @ 100 mls/hr IVPB Q8HR [facility] Rx#:[id number] Blood Product 310 Rc As-1 Unit 310 [id number] Output: Urine 170 125 372 Other: Voiding Method Indwelling Catheter Indwelling Catheter Indwelling Catheter - Exam Physical Exam: Revealed a 73-year-old female in no distress Head: Atraumatic normocephalic. HEENT:[Neck is supple.] [No neck masses.] [No thyromegaly.] [No JVD.] PERRLA, EOMI, no icterus. Dry mucous membranes noted. Chest: [continues to haveDiminished breath sounds at the bases with crackles and dullness at the left base. Symmetrical chest expansion, no chest wall tenderness.] Cardiac Exam: [Normal S1 and S2, no S3 gallop, no murmur.] Abdomen: [Soft, nontender, no megaly, no rebound, no guarding, normal bowel sounds.] Large right lower quadrant abdominal wall hematoma noted, unchanged over the last few days Extremities: [No clubbing, no edema, no cyanosis.] Good pulses bilaterally 2+ Neurological Exam: [No focal neurologic deficit.] Alert and oriented 3. Psychiatric: Normal mood, affect and mental status examination. Skin: No rashes. - Labs CBC & Chem 7: 10/28/18 04:20 10/28/18 04:20 Labs: Abnormal Lab Results - Last 24 Hours (Table) 10/27/18 10/27/18 10/28/18 Range/Units 17:07 20:52 04:20 RBC 2.49 L (3.80-5.40) m/uL Hgb 7.9 L (11.4-16.0) gm/dL Hct 23.9 L (34.0-46.0) % RDW 17.2 H (11.5-15.5) % Plt Count 126 L (150-450) k/uL Lymphocytes # 0.5 L (1.0-4.8) k/uL Sodium (137-145) mmol/L Chloride (98-107) mmol/L BUN (7-17) mg/dL Creatinine (0.52-1.04) mg/dL Glucose (74-99) mg/dL POC Glucose (mg/dL) 192 H 162 H (75-99) mg/dL Calcium (8.4-10.2) mg/dL 10/28/18 10/28/18 10/28/18 Range/Units 04:20 04:52 05:23 RBC (3.80-5.40) m/uL Hgb (11.4-16.0) gm/dL Hct (34.0-46.0) % RDW (11.5-15.5) % Plt Count (150-450) k/uL Lymphocytes # (1.0-4.8) k/uL Sodium 131 L (137-145) mmol/L Chloride 96 L (98-107) mmol/L BUN 52 H (7-17) mg/dL Creatinine 1.87 H (0.52-1.04) mg/dL Glucose 48 L* (74-99) mg/dL POC Glucose (mg/dL) 58 L 174 H (75-99) mg/dL Calcium 8.1 L (8.4-10.2) mg/dL 10/28/18 10/28/18 10/28/18 Range/Units 06:58 11:26 16:37 RBC (3.80-5.40) m/uL Hgb (11.4-16.0) gm/dL Hct (34.0-46.0) % RDW (11.5-15.5) % Plt Count (150-450) k/uL Lymphocytes # (1.0-4.8) k/uL Sodium (137-145) mmol/L Chloride (98-107) mmol/L BUN (7-17) mg/dL Creatinine (0.52-1.04) mg/dL Glucose (74-99) mg/dL POC Glucose (mg/dL) 138 H 114 H 202 H (75-99) mg/dL Calcium (8.4-10.2) mg/dL Microbiology - Last 24 Hours (Table) 10/24/18 19:52 Blood Culture - Preliminary Blood No Growth after 72 hours Assessment and Plan Assessment: Impression: 1 acute symptomatic anemia secondary to blood loss secondary to large abdominal wall hematoma most likely related to anticoagulation therapy/eliquis. 2 acute hypotension associated with bradycardia, and associated with blood loss , improving with blood transfusion. 3 acute kidney injury, multifactorial likely related to hypotension/acute tubular necrosis although medication-induced kidney injury is not entirely ruled out 4 electrolytes imbalance including hyponatremia and hypokalemia as well as hypomagnesemia, exact etiology is not clear. Those are being corrected accordingly. Likely multifactorial,, 5 suspect some component of congestive heart failure likely diastolic in nature with left-sided pleural effusion which may or may not require thoracentesis.patient is extremely reluctant to have it done 6 acute urinary tract infection, being addressed by infectious disease on the case. 7 recent ischemic infarct noted on recent MRI. 8 carotid artery stenosis 9 type 2 diabetes 10 underlying COPD 11 Parkinson's disease 12 hypothyroidism 13 degenerative joint disease 14 8 dysfunction 15 ulcerative colitis and irritable bowel syndrome 16 recurrent episodes of urinary tract infections. Recommendation: continue present supportive care measures including diuretics, antibiotics, conservative measures regarding her abdominal wall hematoma, resume her previous meds,continue bronchodilators.close monitoring of renal profile especially while on diuretics. Continue aztreonam and metronidazole, patient was made aware of the left-sided pleural effusion, and I had a feeling that she may eventually require thoracentesis. Could be transferred out of the ICU, should be kept on a cardiac floor with telemetry. Time with Patient: Less than 30
[2018-10-28 20:13] LABS: Glucose,Whole Blood 197 mg/dL (75-99)
[2018-10-28] MEDS: FUROSEMIDE 10 MG/ML 2 ML VIAL IV SCH (20:58)
[2018-10-28] MEDS: ATORVASTATIN 10 MG TAB PO SCH (20:58)
[2018-10-28] MEDS: OXYBUTYNIN 10 MG TAB.ER.24 PO SCH (20:59)
[2018-10-28] MEDS: traZODone HCL 50 MG TAB PO SCH (20:59)
[2018-10-28] MEDS: MELATONIN 1 MG TAB PO SCH (20:59)
--- NOTE | 2018-10-28 21:17 | P.PN ---
Subjective This is a pleasant 73 years old female with past medical history of congestive, atrial fibrillation, GERD, hyperlipidemia, hypertension, hypothyroidism, diabetes mellitus type 2, diabetic neuropathy, sarcoidosis, multiple drug ALLERGY, legally blind, ulcerative colitis, frequent falls. This time patient presents because of abdominal pain. Patient is not very good historian. She wasn't sure when the hospital but she stated she has abdominal pain in the right lower quadrant secondary to hematoma, which is evident on abdominal exam as right lower quadrant fluctuating swelling. Patient also has suprapubic tenderness and some epigastric tenderness but they are milder. She complains from cough and phlegm, patient not sure which covered his however patient states that is been going on every day as she has history of asthma. She denies dysuria or change in frequency however she has suprapubic tenderness. In the emergency room, vitals were stable, she is saturating 95% on 2 L oxygen. WBC 3.4K, hemoglobin 10.9. Platelets 112. Sodium 133. Creatinine 1.08. Potassium 4.5. Liver enzymes mildly elevated. Urinalysis is suspicious for infection. CT of the abdomen and pelvis with IV contrast showing bilateral pleural effusion, left more than right with possible underlying infiltrate. Urine culture and sputum cultures are ordered. 10/26/2018 Patient is more confused today and or difficult to wake up. She is developing acute renal failure with trending up creatinine from 1.0 to 1.6, her potassium is slightly elevated. And hemoglobin dropped from 10 down to 7.3. The hematoma mass on her lower anterior abdominal area it looks the same while it is demarcated however patient has new bruises on the right flank area. With call GI consult and transfuse 1 unit of blood. also add iron pills. Hold Lasix and potassium, give 1 dose of Kayexalate. And increase IV fluids.GI consult is appreciated and the recommend repeat colonoscopy in 4-6 weeks. patient likely has pneumonia as she has no respiratory symptoms. 10/27/18 pt is more awake today , no more pallor, no chest pain or dyspena , still has abdominal pain at the hematoma side, which looks stable, as well as the ecchysmosis on the right flank. pt still has some tenderness in the suparpubic region and around the umbilicus. vital are stable , pt hypotension is improved and her BP is133/89, HT 55 , RR 16 and saturating 99% on 3 L oxygen. hemoglobin improved 6.7 to 8.2 after 3 units of blood transfusion. creatinine 2.0 abd J: 4.5. pt remains in the ICU currently for close monitoring , critical care and GI team follow up is appreciated. her urine culture is growing psuedomonas and proteus, pt is on aztreonam and flagyl, no diarrhea 10/28/2018 pt is still awake and alert and is oriented to the surrounding , her abdominal pain and hematoma swelling continue to improve. today she has less pain and tenderness at the hematoma site and her supra pubic tenderness and periumbilical tenderness are improved . vitals and BP are stable, hb is 7.9, she had low glucose this morning , but that is corrected. her Cr is improving slightly down to 1.8 ,i discussed the case with her daughter in law . i anticipate pt will be transferred out of the ICU soon . . Objective - Vital Signs Vital signs: Vital Signs Temp 98.7 F 10/28/18 16:00 Pulse 66 10/28/18 16:10 Resp 23 10/28/18 16:00 BP 118/73 10/28/18 16:00 Pulse Ox 100 10/28/18 16:00 Intake & Output 10/28/18 10/28/18 10/29/18 06:59 18:59 06:59 Intake Total 550 400 Output Total 125 372 Balance 425 28 Weight 59.8 kg Intake: IV 550 400 Aztreonam 1 gm In Sodium 100 50 Chloride 0.9% 50 ml @ 100 mls/hr IVPB Q12HR [facility] Rx #:[id number] Sodium Chloride 0.9% 1, 450 150 000 ml @ 50 mls/hr IV . Q20H [facility] Rx#:[id number] metroNIDAZOLE-NS PMX 500 200 mg In Saline 1 100ml.bag @ 100 mls/hr IVPB Q8HR [facility] Rx#:[id number] Output: Urine 125 372 Other: Voiding Method Indwelling Catheter Indwelling Catheter - Exam -GENERAL: The patient is more awake and alert, not in any acute distress. HEENT: Pupils are round and equally reacting to light. EOMI. No scleral icterus. No conjunctival pallor. Normocephalic, atraumatic. No pharyngeal erythema. No thyromegaly. CARDIOVASCULAR: S1 and S2 present. No murmurs, rubs, or gallops. PULMONARY: Chest is clear to auscultation, no wheezing or crackles. -ABDOMEN: Soft, nontender, nondistended, normoactive bowel sounds. No palpable organomegaly. RLQ tender swelling is stable in size , as well as the right flank echymosis is stable as well MUSCULOSKELETAL: No joint swelling or deformity. EXTREMITIES: No cyanosis, clubbing, or pedal edema. NEUROLOGICAL: Gross neurological examination did not reveal any focal deficits. SKIN: No rashes. - Labs CBC & Chem 7: 10/28/18 04:20 10/28/18 04:20 Labs: Abnormal Lab Results - Last 24 Hours (Table) 10/27/18 10/28/18 10/28/18 Range/Units 20:52 04:20 04:20 RBC 2.49 L (3.80-5.40) m/uL Hgb 7.9 L (11.4-16.0) gm/dL Hct 23.9 L (34.0-46.0) % RDW 17.2 H (11.5-15.5) % Plt Count 126 L (150-450) k/uL Lymphocytes # 0.5 L (1.0-4.8) k/uL Sodium 131 L (137-145) mmol/L Chloride 96 L (98-107) mmol/L BUN 52 H (7-17) mg/dL Creatinine 1.87 H (0.52-1.04) mg/dL Glucose 48 L* (74-99) mg/dL POC Glucose (mg/dL) 162 H (75-99) mg/dL Calcium 8.1 L (8.4-10.2) mg/dL 10/28/18 10/28/18 10/28/18 Range/Units 04:52 05:23 06:58 RBC (3.80-5.40) m/uL Hgb (11.4-16.0) gm/dL Hct (34.0-46.0) % RDW (11.5-15.5) % Plt Count (150-450) k/uL Lymphocytes # (1.0-4.8) k/uL Sodium (137-145) mmol/L Chloride (98-107) mmol/L BUN (7-17) mg/dL Creatinine (0.52-1.04) mg/dL Glucose (74-99) mg/dL POC Glucose (mg/dL) 58 L 174 H 138 H (75-99) mg/dL Calcium (8.4-10.2) mg/dL 10/28/18 10/28/18 10/28/18 Range/Units 11:26 16:37 20:11 RBC (3.80-5.40) m/uL Hgb (11.4-16.0) gm/dL Hct (34.0-46.0) % RDW (11.5-15.5) % Plt Count (150-450) k/uL Lymphocytes # (1.0-4.8) k/uL Sodium (137-145) mmol/L Chloride (98-107) mmol/L BUN (7-17) mg/dL Creatinine (0.52-1.04) mg/dL Glucose (74-99) mg/dL POC Glucose (mg/dL) 114 H 202 H 197 H (75-99) mg/dL Calcium (8.4-10.2) mg/dL Microbiology - Last 24 Hours (Table) 10/24/18 19:52 Blood Culture - Preliminary Blood No Growth after 72 hours Assessment and Plan Assessment: acute delirium Abdominal pain, mostly related to proctocolitis. abdominal wall hematoma Acute a drop in hemoglobin with blood loss anemia. Acute kidney injury with hyperkalemia Urinary tract infection Possible cirrhosis of the liver with portal hypertension Abdominal wall hematoma measuring 8.7 x 5.1 x 4.7 centimeters History of congestive heart failure History of atrial fibrillation, rate control. Not on anticoagulation History of GERD Hyperlipidemia Essential hypertension History of hypothyroidism Diabetes mellitus, type II Diabetic neuropathy History of sarcoidosis History of multiple drug ALLERGIES Patient is legally blind History of ulcerative colitis History of frequent falls Plan: This is a pleasant 73 years old female who presents with proctocolitis and abdominal wall hematoma, possible sepsis and continue with antibiotics. We'll check for C. diff.transfuse blood and call surgical consult. Labs and medication were reviewed.. Continue same treatment. Continue with symptomatic treatment. Resume home medication. Monitor lytes and vitals. DVT and GI prophylaxis. Further recommendations of the clinical course of the patient DVT prophylaxis: no heparin for now in view of pt hematoma GI Prophylaxis: Pepcid PT/OT: Pending Prognosis is guarded and poor
[2018-10-29 04:51] LABS: Anisocytosis Slight; Basophils % (A) 0 %; Eosinophils # (A) 0.1 k/uL (0-0.7); Eosinophils % (A) 2 %; HCT 24.1 % (34.0-46.0); HGB 8.2 gm/dL (11.4-16.0); Lymphocytes # (A) 0.5 k/uL (1.0-4.8); Lymphocytes % (A) 12 %; MCHC 34.1 g/dL (31.0-37.0); MCV 96.8 fL (80.0-100.0); Macrocytosis Slight; Mean Platelet Volume 7.2; Monocytes # (A) 0.3 k/uL (0-1.0); Monocytes % (A) 8 %; Neutrophils # (A) 2.9 k/uL (1.3-7.7); Neutrophils % (A) 74 %; Platelet Count 120 k/uL (150-450); RBC 2.49 m/uL (3.80-5.40); WBC 3.9 k/uL (3.8-10.6)
[2018-10-29 05:01] LABS: Potassium 4.2 mmol/L (3.5-5.1)
[2018-10-29 05:02] LABS: Calcium 8.3 mg/dL (8.4-10.2)
[2018-10-29] MEDS: LEVOTHYROXINE 137 MCG TAB PO SCH (05:23)
[2018-10-29 07:09] LABS: Glucose,Whole Blood 108 mg/dL (75-99)
--- NOTE | 2018-10-29 07:42 | XR ---
EXAMINATION TYPE: XR chest 1V DATE OF EXAM: 10/29/2018 HISTORY: Shortness of breath. COMPARISON: 10/28/2018 TECHNIQUE: Single view of the chest is submitted. FINDINGS: Left perihilar linear atelectasis. Perihilar infiltrates as well as left basilar infiltrate/effusion and/or atelectasis. The heart is stable. Hilar and mediastinal structures are within normal limits. Degenerative changes are seen of the dorsal spine. IMPRESSION: 1. Stable chest. Follow-up until resolution advised.
[2018-10-29] MEDS: SYMBICORT 160-4.5 MCG INHALER INHALATION SCH ×2 (07:51→20:39)
[2018-10-29] MEDS: IPRATROPIUM-ALBUTEROL 3 ML NEB INHALATION SCH ×2 (07:51→20:40)
--- NOTE | 2018-10-29 08:00 | PN ---
PROGRESS NOTE DATE OF SERVICE: 10/28/2018. REASON FOR FOLLOW UP: Pseudomonas urinary tract infection. INTERVAL HISTORY: Patient is afebrile. She is breathing comfortably. Denies any chest pain or any cough. No abdominal pain or any diarrhea. PHYSICAL EXAMINATION: Blood pressure 118/73 with a pulse of 57, temperature 98.7. She is 100% on 2 L nasal cannula. General description is an elderly female lying in bed in no distress. Respiratory system: Unlabored breathing. Clear to auscultation anteriorly. Heart S1, S2. Regular rate and rhythm. ABDOMEN: Soft. Right lower abdominal wall hematoma slightly decreased. LABS: Hemoglobin 7.1, white count 4.5. BUN of 52, creatinine 1.7. DIAGNOSTIC IMPRESSION AND PLAN: Patient with Pseudomonas urinary tract infection. Patient currently with because of multiple antibiotic allergy. Continue to follow while watching clinical course closely. Continue supportive care. MMODL / IJN: [id number] /
[2018-10-29] MEDS: INSULIN ASPART (NovoLOG) 100 UNIT/ML VIAL SQ SCH ×4 (08:47→22:02)
[2018-10-29] MEDS: metroNIDAZOLE-NS PMX 500 MG in SALINE 1 100ML.BAG IVPB SCH ×3 (09:05→23:54)
[2018-10-29] MEDS: CARBIDOPA-LEVODOPA 25-100 MG 1 EACH TAB PO SCH ×3 (09:05→20:40)
[2018-10-29] MEDS: FERROUS SULFATE 325 MG TAB PO SCH ×2 (09:06→18:03)
[2018-10-29] MEDS: AZTREONAM 1 GM in SODIUM CHLORIDE 0.9% 50 ML IVPB SCH ×2 (09:06→22:03)
[2018-10-29] MEDS: MAGNESIUM OXIDE 400 MG TAB PO SCH (09:07)
[2018-10-29] MEDS: FUROSEMIDE 10 MG/ML 2 ML VIAL IV SCH ×2 (09:07→20:40)
[2018-10-29] MEDS: INSULIN DETEMIR (LEVEMIR) 100 UNIT/ML SYR SQ SCH (09:07)
[2018-10-29] MEDS: PANTOPRAZOLE 40 MG/10 ML VIAL IV SCH (09:09)
[2018-10-29] MEDS: PRIMIDONE 50 MG TAB PO SCH (09:10)
[2018-10-29] MEDS: VENLAFAXINE HCL ER 75 MG CAP PO SCH (09:10)
[2018-10-29 11:09] LABS: Glucose,Whole Blood 164 mg/dL (75-99)
[2018-10-29] MEDS: AMMONIUM LACTATE 12% LOTION 225 GM BTL TOPICAL SCH (12:34)
[2018-10-29] MEDS: NON-FORMULARY DRUG (Teriparatide [Forteo] 20 MCG) SQ SCH (13:08)
--- NOTE | 2018-10-29 13:11 | P.PN ---
Subjective Progress Note Date: 10/29/18 Principal diagnosis: Abdominal wall hematoma and anemia secondary to blood loss This 73-year-old white female patient of Dr. Morales, with multiple medical problems, including chronic atrial fibrillation on chronic anticoagulation, chronic congestive heart failure, COPD, diabetes mellitus type 2, hypertension, hyperlipidemia, chronic kidney disease, hypothyroidism, Parkinson's, previous stroke with left eye blindness, DJD, gait dysfunction, ulcerative colitis, recurrent urinary tract infections with previous history of vancomycin- resistant enterococcus UTI. Patient was recently hospitalized in September for mental status changes, hyponatremia, acute exacerbation of CHF with diastolic dysfunction, slurred speech and a right facial droop. Computed tomography scan of the brain did not show an acute intracranial process. She was found to have significant bilateral carotid artery stenosis of greater than 70%. MRI scan of the brain did reveal right nonhemorrhagic ophthalmic infarct. Patient does have lower extremity wounds, and following discharge from the hospital she was sent to the long term on IV vancomycin. Blood culture showed evidence of MSSA, however patient had multiple ALLERGIES including to cephalosporins, therefore requiring vancomycin infusions.On 10/24/2018 patient was brought to the emergency department per EMS from the long term for evaluation of developing hematoma over the right lower quadrant of her abdomen, which has been developing over a period of time but is now acutely tender and painful. Patient denied any recent fall, or trauma to the area. She has been having occasional fevers and chills area. Denied any chest pain, shortness of breath, cough, chest congestion. She had recently finished a lengthy course of IV vancomycin. She has a chronic indwelling Smith catheter in place, due to concern for frequent falls and inability to ambulate. Blood work on 10/24/2018 revealed a white blood cell count of 3.4, hemoglobin of 10.9, sodium was 133, potassium is 4.5, chloride is 90, CO2 is 38, B1 is 37, creatinine is 1.08. Amylase was less than 30, lipase was 16. ProBNP was 2230. Urinalysis showed small amount of blood, large amount white blood cells, related to underlying urinary tract infection. Patient was also having some abdominal discomfort. She was placed on a combination of Azactam and Flagyl. She has been afebrile during this admission. This morning patient was getting up to the bathroom, when she became briefly unresponsive, she was bradycardic with a heart rate in the 30s, and hypotensive. She was placed back in bed and she came to. She was given IV fluid bolus, stat CT of the abdomen and pelvis was obtained, and showed a large hematoma involving or overlying the right external oblique, measuring 8.8 x 5.0 x 7.3 cm. The blood work was obtained, and showed hemoglobin down to 6.6, sodium 132, potassium is 5.9, BUN 42, creatinine is 1.84. She was transferred to the intensive care unit for further monitoring, she is being transfused with 1 unit of packed red blood cells. And this consult was initiated. Currently blood pressure is 98/58, heart rate is 52, pulse ox is 94% on 3 L, patient is afebrile, she is pale, but in no acute distress. Denies any chest pain or shortness of breath Patient was reevaluated today on 10/27/2018, feeling better, no further episodes of syncope since she was admitted to the intensive care unit. He received so far a total of 2 units of packed RBCs, hemoglobin was 6.7 this morning, and Nexium hemoglobin is pending after the last unit of packed RBCs given. Patient is hemodynamically stable. Chest x-ray showed evidence of congestive heart failure with good sized left-sided pleural effusion further noted on ultrasound the chest, may or may not require thoracentesis. In the meantime we'll try to diuretics for what seems to be a picture of congestive heart failure and fluid overload urine culture came back positive for Pseudomonas and Proteus, and that is being addressed by infectious disease on the case. Renal profile today is a bit worse, BUN is 48 creatinine is 2.0. Baseline creatinine on admission was 1.08. Clinically however the patient is feeling better. Continues to have good sized hematoma in the right lower quadrant area. Reevaluated today on 10/28/2018, patient had no further syncopal episodes, seems to be quite comfortable in the ICU. Hemodynamically stable. Received a total of 2 units of packed RBCs for her blood loss and abdominal wall hematoma.hemoglobin today is 7.9. Platelets are 126,000.all her labs were reviewed, and she had a relatively normal electrolytes, BUN is 52 creatinine is down to 1.87 from 2.0 yesterday.chest x-ray continues to show moderate left- sided pleural effusion, patient has been reluctant about having thoracentesis. In the meantime she is receiving diuretics.and I plan to give her diuretics again today she did receive 20 mg IV push yesterday.however I have a feeling that the patient may eventually require thoracentesis if she is agreeable to have it done. Reevaluated today on 10/29/2018, patient is doing relatively well, remains in the ICU, very comfortable, continues to have a small left pleural effusion noted on the chest x-ray, but the patient is relatively asymptomatic. No cough no wheezing no shortness of breath no chest pain, abdominal hematoma is basically about the same.hemoglobin is 8.2 WBC count is 3.9 electrode are normal BUN is 52 creatinine is 1.65.remains on Lasix at 20 mg IV push every 12 hours Objective - Vital Signs Vital signs: Vital Signs Temp 98.1 F 10/29/18 12:00 Pulse 70 10/29/18 12:00 Resp 18 10/29/18 12:00 BP 107/51 10/29/18 12:00 Pulse Ox 97 10/29/18 12:00 Intake & Output 10/28/18 10/29/18 10/29/18 18:59 06:59 18:59 Intake Total 400 230 180 Output Total 372 145 140 Balance 28 85 40 Weight 68.8 kg Intake: IV 400 230 180 Aztreonam 1 gm In Sodium 50 50 Chloride 0.9% 50 ml @ 100 mls/hr IVPB Q12HR [facility] Rx #:[id number] Sodium Chloride 0.9% 1, 150 80 80 000 ml @ 20 mls/hr IV . Q24H [facility] Rx#:[id number] metroNIDAZOLE-NS PMX 500 200 100 100 mg In Saline 1 100ml.bag @ 100 mls/hr IVPB Q8HR [facility] Rx#:[id number] Output: Urine 372 145 140 Other: Voiding Method Indwelling Catheter Indwelling Catheter Indwelling Catheter - Exam Physical Exam: Revealed a 73-year-old female in no distress Head: Atraumatic normocephalic. HEENT:[Neck is supple.] [No neck masses.] [No thyromegaly.] [No JVD.] PERRLA, EOMI, no icterus. Dry mucous membranes noted. Chest: [Diminished breath sounds at the bases with crackles and dullness at the left base. Symmetrical chest expansion, no chest wall tenderness.] Cardiac Exam: [Normal S1 and S2, no S3 gallop, no murmur.] Abdomen: [Soft, nontender, no megaly, no rebound, no guarding, normal bowel sounds.] Large right lower quadrant abdominal wall hematoma , unchanged Extremities: [No clubbing, no edema, no cyanosis.] Good pulses bilaterally 2+ Neurological Exam: [No focal neurologic deficit.] Alert and oriented 3. Psychiatric: Normal mood, affect and mental status examination. Skin: No rashes. - Labs CBC & Chem 7: 10/29/18 04:36 10/29/18 04:36 Labs: Abnormal Lab Results - Last 24 Hours (Table) 10/26/18 10/28/18 10/28/18 Range/Units 13:43 16:37 20:11 RBC (3.80-5.40) m/uL Hgb (11.4-16.0) gm/dL Hct (34.0-46.0) % RDW (11.5-15.5) % Plt Count (150-450) k/uL Lymphocytes # (1.0-4.8) k/uL Sodium (137-145) mmol/L Chloride (98-107) mmol/L BUN (7-17) mg/dL Creatinine (0.52-1.04) mg/dL Glucose (74-99) mg/dL POC Glucose (mg/dL) 202 H 197 H (75-99) mg/dL Calcium (8.4-10.2) mg/dL Crossmatch See Detail 10/29/18 10/29/18 10/29/18 Range/Units 04:36 04:36 07:08 RBC 2.49 L (3.80-5.40) m/uL Hgb 8.2 L (11.4-16.0) gm/dL Hct 24.1 L (34.0-46.0) % RDW 17.0 H (11.5-15.5) % Plt Count 120 L (150-450) k/uL Lymphocytes # 0.5 L (1.0-4.8) k/uL Sodium 131 L (137-145) mmol/L Chloride 96 L (98-107) mmol/L BUN 52 H (7-17) mg/dL Creatinine 1.65 H (0.52-1.04) mg/dL Glucose 101 H (74-99) mg/dL POC Glucose (mg/dL) 108 H (75-99) mg/dL Calcium 8.3 L (8.4-10.2) mg/dL Crossmatch 10/29/18 Range/Units 11:08 RBC (3.80-5.40) m/uL Hgb (11.4-16.0) gm/dL Hct (34.0-46.0) % RDW (11.5-15.5) % Plt Count (150-450) k/uL Lymphocytes # (1.0-4.8) k/uL Sodium (137-145) mmol/L Chloride (98-107) mmol/L BUN (7-17) mg/dL Creatinine (0.52-1.04) mg/dL Glucose (74-99) mg/dL POC Glucose (mg/dL) 164 H (75-99) mg/dL Calcium (8.4-10.2) mg/dL Crossmatch Microbiology - Last 24 Hours (Table) 10/24/18 19:52 Blood Culture - Preliminary Blood No Growth after 96 hours Assessment and Plan Assessment: Impression: 1 acute symptomatic anemia secondary to blood loss secondary to large abdominal wall hematoma most likely related to anticoagulation therapy/eliquis. 2 acute hypotension associated with bradycardia, and associated with blood loss , improving with blood transfusion. 3 acute kidney injury, multifactorial likely related to hypotension/acute tubular necrosis although medication-induced kidney injury is not entirely ruled out 4 electrolytes imbalance including hyponatremia and hypokalemia as well as hypomagnesemia, exact etiology is not clear. Those are being corrected accordingly. Likely multifactorial,, 5 suspect some component of congestive heart failure likely diastolic in nature with left-sided pleural effusion which may or may not require thoracentesis.patient is extremely reluctant to have it done 6 acute urinary tract infection, being addressed by infectious disease on the case. 7 recent ischemic infarct noted on recent MRI. 8 carotid artery stenosis 9 type 2 diabetes 10 underlying COPD 11 Parkinson's disease 12 hypothyroidism 13 degenerative joint disease 14 8 dysfunction 15 ulcerative colitis and irritable bowel syndrome 16 recurrent episodes of urinary tract infections. Recommendation: continue present supportive care measures including diuretics, antibiotics, conservative measures regarding her abdominal wall hematoma, resume her previous meds,continue bronchodilators.close monitoring of renal profile especially while on diuretics. Continue aztreonam and metronidazole, patient was made aware of the left-sided pleural effusion, may or may not require thoracentesis. At this point I don't see the value of thoracentesis as the patient is asymptomatic and responding well to diuretics. We'll continue to follow. Could be transferred out of the ICU today to a monitor bed on selective Time with Patient: Less than 30
[2018-10-29 17:25] LABS: Glucose,Whole Blood 77 mg/dL (75-99)
[2018-10-29] MEDS: CALCIUM CARB-VIT D 500MG-200UN 1 EACH TAB PO SCH (18:03)
--- NOTE | 2018-10-29 18:12 | P.PN ---
Subjective This is a pleasant 73 years old female with past medical history of congestive, atrial fibrillation, GERD, hyperlipidemia, hypertension, hypothyroidism, diabetes mellitus type 2, diabetic neuropathy, sarcoidosis, multiple drug ALLERGY, legally blind, ulcerative colitis, frequent falls. This time patient presents because of abdominal pain. Patient is not very good historian. She wasn't sure when the hospital but she stated she has abdominal pain in the right lower quadrant secondary to hematoma, which is evident on abdominal exam as right lower quadrant fluctuating swelling. Patient also has suprapubic tenderness and some epigastric tenderness but they are milder. She complains from cough and phlegm, patient not sure which covered his however patient states that is been going on every day as she has history of asthma. She denies dysuria or change in frequency however she has suprapubic tenderness. In the emergency room, vitals were stable, she is saturating 95% on 2 L oxygen. WBC 3.4K, hemoglobin 10.9. Platelets 112. Sodium 133. Creatinine 1.08. Potassium 4.5. Liver enzymes mildly elevated. Urinalysis is suspicious for infection. CT of the abdomen and pelvis with IV contrast showing bilateral pleural effusion, left more than right with possible underlying infiltrate. Urine culture and sputum cultures are ordered. 10/26/2018 Patient is more confused today and or difficult to wake up. She is developing acute renal failure with trending up creatinine from 1.0 to 1.6, her potassium is slightly elevated. And hemoglobin dropped from 10 down to 7.3. The hematoma mass on her lower anterior abdominal area it looks the same while it is demarcated however patient has new bruises on the right flank area. With call GI consult and transfuse 1 unit of blood. also add iron pills. Hold Lasix and potassium, give 1 dose of Kayexalate. And increase IV fluids.GI consult is appreciated and the recommend repeat colonoscopy in 4-6 weeks. patient likely has pneumonia as she has no respiratory symptoms. 10/27/18 pt is more awake today , no more pallor, no chest pain or dyspena , still has abdominal pain at the hematoma side, which looks stable, as well as the ecchysmosis on the right flank. pt still has some tenderness in the suparpubic region and around the umbilicus. vital are stable , pt hypotension is improved and her BP is133/89, HT 55 , RR 16 and saturating 99% on 3 L oxygen. hemoglobin improved 6.7 to 8.2 after 3 units of blood transfusion. creatinine 2.0 abd J: 4.5. pt remains in the ICU currently for close monitoring , critical care and GI team follow up is appreciated. her urine culture is growing psuedomonas and proteus, pt is on aztreonam and flagyl, no diarrhea 10/28/2018 pt is still awake and alert and is oriented to the surrounding , her abdominal pain and hematoma swelling continue to improve. today she has less pain and tenderness at the hematoma site and her supra pubic tenderness and periumbilical tenderness are improved . vitals and BP are stable, hb is 7.9, she had low glucose this morning , but that is corrected. her Cr is improving slightly down to 1.8 ,i discussed the case with her daughter in law . i anticipate pt will be transferred out of the ICU soon . 10/29/2018 Patient is clinically stable compared to yesterday which fully awake and oriented. Her hematoma still to improve but still have some abdominal pain and tenderness. Vitas looks stable. She remains on aztreonam and Flagyl for her pseudomonas and Proteus UTI, creatinine is improving from 1.8 down to 1.6. Repeat chest x-ray showed left-sided pleural effusion and infiltrate. Pulmonary team considering thoracocentesis and patient also thinking about it. I discussed this matter with the patient and the possible need for thoracocentesis. . Objective - Vital Signs Vital signs: Vital Signs Temp 98.1 F 10/29/18 12:00 Pulse 67 10/29/18 16:23 Resp 16 10/29/18 16:28 BP 143/63 10/29/18 16:23 Pulse Ox 99 10/29/18 16:23 Intake & Output 10/28/18 10/29/18 10/29/18 18:59 06:59 18:59 Intake Total 400 230 280 Output Total 372 145 140 Balance 28 85 140 Weight 68.8 kg Intake: IV 400 230 180 Aztreonam 1 gm In Sodium 50 50 Chloride 0.9% 50 ml @ 100 mls/hr IVPB Q12HR [facility] Rx #:[id number] Sodium Chloride 0.9% 1, 150 80 80 000 ml @ 20 mls/hr IV . Q24H [facility] Rx#:[id number] metroNIDAZOLE-NS PMX 500 200 100 100 mg In Saline 1 100ml.bag @ 100 mls/hr IVPB Q8HR [facility] Rx#:[id number] Oral 100 Output: Urine 372 145 140 Other: Voiding Method Indwelling Catheter Indwelling Catheter Indwelling Catheter - Exam -GENERAL: The patient is more awake and alert, not in any acute distress. HEENT: Pupils are round and equally reacting to light. EOMI. No scleral icterus. No conjunctival pallor. Normocephalic, atraumatic. No pharyngeal erythema. No thyromegaly. CARDIOVASCULAR: S1 and S2 present. No murmurs, rubs, or gallops. PULMONARY: Chest is clear to auscultation, no wheezing or crackles. -ABDOMEN: Soft, nontender, nondistended, normoactive bowel sounds. No palpable organomegaly. RLQ tender swelling is stable in size , as well as the right flank echymosis is stable as well MUSCULOSKELETAL: No joint swelling or deformity. EXTREMITIES: No cyanosis, clubbing, or pedal edema. NEUROLOGICAL: Gross neurological examination did not reveal any focal deficits. SKIN: No rashes. - Labs CBC & Chem 7: 10/29/18 04:36 10/29/18 04:36 Labs: Abnormal Lab Results - Last 24 Hours (Table) 10/26/18 10/28/18 10/29/18 Range/Units 13:43 20:11 04:36 RBC 2.49 L (3.80-5.40) m/uL Hgb 8.2 L (11.4-16.0) gm/dL Hct 24.1 L (34.0-46.0) % RDW 17.0 H (11.5-15.5) % Plt Count 120 L (150-450) k/uL Lymphocytes # 0.5 L (1.0-4.8) k/uL Sodium (137-145) mmol/L Chloride (98-107) mmol/L BUN (7-17) mg/dL Creatinine (0.52-1.04) mg/dL Glucose (74-99) mg/dL POC Glucose (mg/dL) 197 H (75-99) mg/dL Calcium (8.4-10.2) mg/dL Crossmatch See Detail 10/29/18 10/29/18 10/29/18 Range/Units 04:36 07:08 11:08 RBC (3.80-5.40) m/uL Hgb (11.4-16.0) gm/dL Hct (34.0-46.0) % RDW (11.5-15.5) % Plt Count (150-450) k/uL Lymphocytes # (1.0-4.8) k/uL Sodium 131 L (137-145) mmol/L Chloride 96 L (98-107) mmol/L BUN 52 H (7-17) mg/dL Creatinine 1.65 H (0.52-1.04) mg/dL Glucose 101 H (74-99) mg/dL POC Glucose (mg/dL) 108 H 164 H (75-99) mg/dL Calcium 8.3 L (8.4-10.2) mg/dL Crossmatch Microbiology - Last 24 Hours (Table) 10/24/18 19:52 Blood Culture - Preliminary Blood No Growth after 96 hours Assessment and Plan Assessment: acute delirium Abdominal pain, mostly related to proctocolitis. abdominal wall hematoma Acute a drop in hemoglobin with blood loss anemia. Acute kidney injury with hyperkalemia Urinary tract infection Possible cirrhosis of the liver with portal hypertension Abdominal wall hematoma measuring 8.7 x 5.1 x 4.7 centimeters History of congestive heart failure History of atrial fibrillation, rate control. Not on anticoagulation History of GERD Hyperlipidemia Essential hypertension History of hypothyroidism Diabetes mellitus, type II Diabetic neuropathy History of sarcoidosis History of multiple drug ALLERGIES Patient is legally blind History of ulcerative colitis History of frequent falls Plan: This is a pleasant 73 years old female who presents with proctocolitis and abdominal wall hematoma, possible sepsis and continue with antibiotics. We'll check for C. diff.transfuse blood and call surgical consult. Labs and medication were reviewed.. Continue same treatment. Continue with symptomatic treatment. Resume home medication. Monitor lytes and vitals. DVT and GI prophylaxis. Further recommendations of the clinical course of the patient DVT prophylaxis: no heparin for now in view of pt hematoma GI Prophylaxis: Pepcid PT/OT: Pending Prognosis is guarded and poor
[2018-10-29] MEDS: SODIUM CHLORIDE 0.9% 1,000 ML IV SCH (20:34)
[2018-10-29] MEDS: ATORVASTATIN 10 MG TAB PO SCH (20:40)
[2018-10-29 21:00] LABS: Glucose,Whole Blood 128 mg/dL (75-99)
[2018-10-29] MEDS: traZODone HCL 50 MG TAB PO SCH (22:03)
[2018-10-29] MEDS: OXYBUTYNIN 10 MG TAB.ER.24 PO SCH (22:03)
[2018-10-29] MEDS: MELATONIN 1 MG TAB PO SCH (22:03)
[2018-10-30 02:01] LABS: Glucose,Whole Blood 164 mg/dL (75-99)
[2018-10-30 06:10] LABS: Glucose,Whole Blood 156 mg/dL (75-99)
[2018-10-30] MEDS: CARBIDOPA-LEVODOPA 25-100 MG 1 EACH TAB PO SCH ×3 (06:25→21:27)
[2018-10-30] MEDS: INSULIN ASPART (NovoLOG) 100 UNIT/ML VIAL SQ SCH ×4 (06:25→21:27)
[2018-10-30] MEDS: LEVOTHYROXINE 137 MCG TAB PO SCH (06:45)
[2018-10-30 07:05] LABS: Calcium 8.4 mg/dL (8.4-10.2); Potassium 4.6 mmol/L (3.5-5.1)
[2018-10-30 07:12] LABS: Anisocytosis Slight; Basophils % (A) 0 %; Eosinophils # (A) 0.1 k/uL (0-0.7); Eosinophils % (A) 3 %; HCT 26.1 % (34.0-46.0); HGB 8.4 gm/dL (11.4-16.0); Hypochromasia Slight; Lymphocytes # (A) 0.4 k/uL (1.0-4.8); Lymphocytes % (A) 9 %; MCH 32.3 pg (25.0-35.0); MCHC 32.1 g/dL (31.0-37.0); MCV 100.4 fL (80.0-100.0); Macrocytosis Slight; Mean Platelet Volume 6.6; Monocytes # (A) 0.4 k/uL (0-1.0); Monocytes % (A) 9 %; Neutrophils # (A) 2.9 k/uL (1.3-7.7); Neutrophils % (A) 75 %; Platelet Count 117 k/uL (150-450); RDW 16.9 % (11.5-15.5); WBC 3.8 k/uL (3.8-10.6)
[2018-10-30] MEDS: IPRATROPIUM-ALBUTEROL 3 ML NEB INHALATION SCH ×2 (07:49→20:09)
[2018-10-30] MEDS: SYMBICORT 160-4.5 MCG INHALER INHALATION SCH ×2 (07:49→20:08)
[2018-10-30] MEDS: MAGNESIUM OXIDE 400 MG TAB PO SCH ×3 (08:45→11:38)
[2018-10-30] MEDS: PANTOPRAZOLE 40 MG/10 ML VIAL IV SCH (08:45)
[2018-10-30] MEDS: FERROUS SULFATE 325 MG TAB PO SCH ×2 (08:45→17:12)
[2018-10-30] MEDS: PRIMIDONE 50 MG TAB PO SCH (08:46)
[2018-10-30] MEDS: ACETAMINOPHEN TAB 325 MG TAB PO PRN (08:50)
--- NOTE | 2018-10-30 10:32 | PN ---
PROGRESS NOTE DATE OF SERVICE: 10/29/2018. REASON FOR FOLLOW UP: 1. Pseudomonas urinary tract infection. 2. Right abdominal wall hematoma. INTERVAL HISTORY: The patient is afebrile. She has been breathing comfortably. Transferred out of the ICU. Denies having any chest pain or cough or any abdominal pain. No diarrhea. PHYSICAL EXAMINATION: Blood pressure 138/61 with a pulse of 72, temperature 98.4. She is 95% on 2 L nasal cannula. General description is an elderly female lying in bed in no distress. Respiratory system: Unlabored breathing. Clear to auscultation anteriorly. Heart S1, S2. Regular rate and rhythm. Abdomen soft, no tenderness. Right lower abdominal wall hematoma has decreased in intensity. LABS: Hemoglobin 8.4, white count 3.8 with a BUN of 52, creatinine 4.29. DIAGNOSTIC IMPRESSION AND PLAN: 1. Patient with pseudomonas urinary tract infection, currently covered with Acyclovir. patient because of multiple antibiotic allergies. 2. Right abdominal wall hematoma. No evidence of any infected hematoma. No cellulitis. Continue to monitor closely. Continue supportive care. MMODL / IJN: [id number] /
[2018-10-30] MEDS ORDERED: FLUDROCORTISONE 0.1 MG TAB PO SCH (11:15)
[2018-10-30] MEDS: FUROSEMIDE 10 MG/ML 2 ML VIAL IV SCH (11:38)
[2018-10-30] MEDS: VENLAFAXINE HCL ER 75 MG CAP PO SCH (11:39)
[2018-10-30] MEDS: NON-FORMULARY DRUG (Teriparatide [Forteo] 20 MCG) SQ SCH (11:45)
[2018-10-30] MEDS: AZTREONAM 1 GM in SODIUM CHLORIDE 0.9% 50 ML IVPB SCH ×2 (11:46→21:27)
[2018-10-30] MEDS: AMMONIUM LACTATE 12% LOTION 225 GM BTL TOPICAL SCH (11:47)
[2018-10-30] MEDS: metroNIDAZOLE-NS PMX 500 MG in SALINE 1 100ML.BAG IVPB SCH (11:47)
[2018-10-30] MEDS: INSULIN DETEMIR (LEVEMIR) 100 UNIT/ML SYR SQ SCH (11:51)
[2018-10-30] MEDS ORDERED: ERGOCALCIFEROL 50,000 UNIT CAP PO SCH (12:00)
[2018-10-30 12:06] LABS: Glucose,Whole Blood 133 mg/dL (75-99)
--- NOTE | 2018-10-30 14:11 | P.PN ---
Subjective Progress Note Date: 10/30/18 Principal diagnosis: Abdominal wall hematoma and anemia secondary to blood loss This 73-year-old white female patient of Dr. Morales, with multiple medical problems, including chronic atrial fibrillation on chronic anticoagulation, chronic congestive heart failure, COPD, diabetes mellitus type 2, hypertension, hyperlipidemia, chronic kidney disease, hypothyroidism, Parkinson's, previous stroke with left eye blindness, DJD, gait dysfunction, ulcerative colitis, recurrent urinary tract infections with previous history of vancomycin- resistant enterococcus UTI. Patient was recently hospitalized in September for mental status changes, hyponatremia, acute exacerbation of CHF with diastolic dysfunction, slurred speech and a right facial droop. Computed tomography scan of the brain did not show an acute intracranial process. She was found to have significant bilateral carotid artery stenosis of greater than 70%. MRI scan of the brain did reveal right nonhemorrhagic ophthalmic infarct. Patient does have lower extremity wounds, and following discharge from the hospital she was sent to the [facility] on IV vancomycin. Blood culture showed evidence of MSSA, however patient had multiple ALLERGIES including to cephalosporins, therefore requiring vancomycin infusions.On 10/24/2018 patient was brought to the emergency department per EMS from the sn[facility] for evaluation of developing hematoma over the right lower quadrant of her abdomen, which has been developing over a period of time but is now acutely tender and painful. Patient denied any recent fall, or trauma to the area. She has been having occasional fevers and chills area. Denied any chest pain, shortness of breath, cough, chest congestion. She had recently finished a lengthy course of IV vancomycin. She has a chronic indwelling Smith catheter in place, due to concern for frequent falls and inability to ambulate. Blood work on 10/24/2018 revealed a white blood cell count of 3.4, hemoglobin of 10.9, sodium was 133, potassium is 4.5, chloride is 90, CO2 is 38, B1 is 37, creatinine is 1.08. Amylase was less than 30, lipase was 16. ProBNP was 2230. Urinalysis showed small amount of blood, large amount white blood cells, related to underlying urinary tract infection. Patient was also having some abdominal discomfort. She was placed on a combination of Azactam and Flagyl. She has been afebrile during this admission. This morning patient was getting up to the bathroom, when she became briefly unresponsive, she was bradycardic with a heart rate in the 30s, and hypotensive. She was placed back in bed and she came to. She was given IV fluid bolus, stat CT of the abdomen and pelvis was obtained, and showed a large hematoma involving or overlying the right external oblique, measuring 8.8 x 5.0 x 7.3 cm. The blood work was obtained, and showed hemoglobin down to 6.6, sodium 132, potassium is 5.9, BUN 42, creatinine is 1.84. She was transferred to the intensive care unit for further monitoring, she is being transfused with 1 unit of packed red blood cells. And this consult was initiated. Currently blood pressure is 98/58, heart rate is 52, pulse ox is 94% on 3 L, patient is afebrile, she is pale, but in no acute distress. Denies any chest pain or shortness of breath Patient was reevaluated today on 10/27/2018, feeling better, no further episodes of syncope since she was admitted to the intensive care unit. He received so far a total of 2 units of packed RBCs, hemoglobin was 6.7 this morning, and Nexium hemoglobin is pending after the last unit of packed RBCs given. Patient is hemodynamically stable. Chest x-ray showed evidence of congestive heart failure with good sized left-sided pleural effusion further noted on ultrasound the chest, may or may not require thoracentesis. In the meantime we'll try to diuretics for what seems to be a picture of congestive heart failure and fluid overload urine culture came back positive for Pseudomonas and Proteus, and that is being addressed by infectious disease on the case. Renal profile today is a bit worse, BUN is 48 creatinine is 2.0. Baseline creatinine on admission was 1.08. Clinically however the patient is feeling better. Continues to have good sized hematoma in the right lower quadrant area. Reevaluated today on 10/28/2018, patient had no further syncopal episodes, seems to be quite comfortable in the ICU. Hemodynamically stable. Received a total of 2 units of packed RBCs for her blood loss and abdominal wall hematoma.hemoglobin today is 7.9. Platelets are 126,000.all her labs were reviewed, and she had a relatively normal electrolytes, BUN is 52 creatinine is down to 1.87 from 2.0 yesterday.chest x-ray continues to show moderate left- sided pleural effusion, patient has been reluctant about having thoracentesis. In the meantime she is receiving diuretics.and I plan to give her diuretics again today she did receive 20 mg IV push yesterday.however I have a feeling that the patient may eventually require thoracentesis if she is agreeable to have it done. Reevaluated today on 10/29/2018, patient is doing relatively well, remains in the ICU, very comfortable, continues to have a small left pleural effusion noted on the chest x-ray, but the patient is relatively asymptomatic. No cough no wheezing no shortness of breath no chest pain, abdominal hematoma is basically about the same.hemoglobin is 8.2 WBC count is 3.9 electrode are normal BUN is 52 creatinine is 1.65.remains on Lasix at 20 mg IV push every 12 hours Patient was reevaluated today on 10/30/2018, she is now on the cardiac floor, resting in bed, comfortable, in no distress. Her abdominal wall hematoma is basically the same, and her hemoglobin is holding at 8.4. She has been on diuretics, however considering her sodium is 128 today, BUN is 52 and creatinine is 1.29, I will go ahead and cut down on her diuretics. No chest x- ray was done today, but clinically the patient is feeling better, breathing easier overall. She did have a small tiny left pleural effusion, did not feel it is large enough to consider thoracentesis at this point. Objective - Vital Signs Vital signs: Vital Signs Temp 96.2 F L 10/30/18 08:00 Pulse 68 10/30/18 08:05 Resp 16 10/30/18 10:53 BP 154/67 10/30/18 08:00 Pulse Ox 98 10/30/18 08:00 Intake & Output 10/29/18 10/30/18 10/30/18 18:59 06:59 18:59 Intake Total 280 100 0 Output Total 140 600 360 Balance 140 -500 -360 Weight 68.5 kg Intake: IV 180 100 Sodium Chloride 0.9% 1, 80 100 000 ml @ 20 mls/hr IV . Q24H LAMBERTO Rx#:[id number] metroNIDAZOLE-NS PMX 500 100 mg In Saline 1 100ml.bag @ 100 mls/hr IVPB Q8HR [facility] Rx#:[id number] Oral 100 0 Output: Urine 140 600 360 Straight 600 Other: Voiding Method Indwelling Catheter Indwelling Catheter Indwelling Catheter - Exam Physical Exam: Revealed a 73-year-old female in no distress pleasant. On 2 L nasal cannula. Head: Atraumatic normocephalic. HEENT:[Neck is supple.] [No neck masses.] [No thyromegaly.] [No JVD.] PERRLA, EOMI, no icterus. Dry mucous membranes noted. Chest: [Diminished breath sounds at the bases with crackles and dullness at the left base. Symmetrical chest expansion, no chest wall tenderness.] Cardiac Exam: [Normal S1 and S2, no S3 gallop, no murmur.] Abdomen: [Soft, nontender, no megaly, no rebound, no guarding, normal bowel sounds.] Large right lower quadrant abdominal wall hematoma , unchanged, nontender. Extremities: [No clubbing, no edema, no cyanosis.] Good pulses bilaterally 2+ Neurological Exam: [No focal neurologic deficit.] Alert and oriented 3. Psychiatric: Normal mood, affect and mental status examination. Skin: No rashes. - Labs CBC & Chem 7: 10/30/18 05:39 10/30/18 05:39 Labs: Abnormal Lab Results - Last 24 Hours (Table) 10/29/18 10/30/18 10/30/18 Range/Units 20:59 01:59 05:39 RBC 2.60 L (3.80-5.40) m/uL Hgb 8.4 L (11.4-16.0) gm/dL Hct 26.1 L (34.0-46.0) % MCV 100.4 H (80.0-100.0) fL RDW 16.9 H (11.5-15.5) % Plt Count 117 L (150-450) k/uL Lymphocytes # 0.4 L (1.0-4.8) k/uL Sodium (137-145) mmol/L Chloride (98-107) mmol/L BUN (7-17) mg/dL Creatinine (0.52-1.04) mg/dL Glucose (74-99) mg/dL POC Glucose (mg/dL) 128 H 164 H (75-99) mg/dL 10/30/18 10/30/18 10/30/18 Range/Units 05:39 06:09 11:25 RBC (3.80-5.40) m/uL Hgb (11.4-16.0) gm/dL Hct (34.0-46.0) % MCV (80.0-100.0) fL RDW (11.5-15.5) % Plt Count (150-450) k/uL Lymphocytes # (1.0-4.8) k/uL Sodium 128 L (137-145) mmol/L Chloride 96 L (98-107) mmol/L BUN 52 H (7-17) mg/dL Creatinine 1.29 H (0.52-1.04) mg/dL Glucose 141 H (74-99) mg/dL POC Glucose (mg/dL) 156 H 133 H (75-99) mg/dL Microbiology - Last 24 Hours (Table) 10/24/18 19:52 Blood Culture - Preliminary Blood No Growth after 120 hours Assessment and Plan Assessment: Impression: 1 acute symptomatic anemia secondary to blood loss secondary to large abdominal wall hematoma most likely related to anticoagulation therapy/eliquis. 2 acute hypotension associated with bradycardia, and associated with blood loss , improving with blood transfusion. 3 acute kidney injury, multifactorial likely related to hypotension/acute tubular necrosis although medication-induced kidney injury is not entirely ruled out 4 electrolytes imbalance including hyponatremia and hypokalemia as well as hypomagnesemia, likely diuretics induced. 5 suspect some component of congestive heart failure likely diastolic in nature with left-sided pleural effusion, presently small, no need for thoracentesis at this point 6 acute urinary tract infection, being addressed by infectious disease on the case. 7 recent ischemic infarct noted on recent MRI. 8 carotid artery stenosis 9 type 2 diabetes 10 underlying COPD 11 Parkinson's disease 12 hypothyroidism 13 degenerative joint disease 14 ulcerative colitis and irritable bowel syndrome 15 recurrent episodes of urinary tract infections. Recommendation: continue present supportive care measures including diuretics, however the Lasix dose was cut down to 20 mg daily instead of 20 twice a day antibiotics, conservative measures regarding her abdominal wall hematoma, resume her previous meds,continue bronchodilators.close monitoring of renal profile especially while on diuretics. Continue aztreonam and metronidazole, patient was made aware of the left-sided pleural effusion, does not require thoracentesis at this point.. At this point I don't see the value of thoracentesis as the patient is asymptomatic and responding well to diuretics. We'll continue to follow. Consider transfer to rehab facility sometime in the next 24-48 hours. Time with Patient: Less than 30
--- NOTE | 2018-10-30 15:38 | P.PN ---
Subjective This is a pleasant 73 years old female with past medical history of congestive, atrial fibrillation, GERD, hyperlipidemia, hypertension, hypothyroidism, diabetes mellitus type 2, diabetic neuropathy, sarcoidosis, multiple drug ALLERGY, legally blind, ulcerative colitis, frequent falls. This time patient presents because of abdominal pain. Patient is not very good historian. She wasn't sure when the hospital but she stated she has abdominal pain in the right lower quadrant secondary to hematoma, which is evident on abdominal exam as right lower quadrant fluctuating swelling. Patient also has suprapubic tenderness and some epigastric tenderness but they are milder. She complains from cough and phlegm, patient not sure which covered his however patient states that is been going on every day as she has history of asthma. She denies dysuria or change in frequency however she has suprapubic tenderness. In the emergency room, vitals were stable, she is saturating 95% on 2 L oxygen. WBC 3.4K, hemoglobin 10.9. Platelets 112. Sodium 133. Creatinine 1.08. Potassium 4.5. Liver enzymes mildly elevated. Urinalysis is suspicious for infection. CT of the abdomen and pelvis with IV contrast showing bilateral pleural effusion, left more than right with possible underlying infiltrate. Urine culture and sputum cultures are ordered. 10/26/2018 Patient is more confused today and or difficult to wake up. She is developing acute renal failure with trending up creatinine from 1.0 to 1.6, her potassium is slightly elevated. And hemoglobin dropped from 10 down to 7.3. The hematoma mass on her lower anterior abdominal area it looks the same while it is demarcated however patient has new bruises on the right flank area. With call GI consult and transfuse 1 unit of blood. also add iron pills. Hold Lasix and potassium, give 1 dose of Kayexalate. And increase IV fluids.GI consult is appreciated and the recommend repeat colonoscopy in 4-6 weeks. patient likely has pneumonia as she has no respiratory symptoms. 10/27/18 pt is more awake today , no more pallor, no chest pain or dyspena , still has abdominal pain at the hematoma side, which looks stable, as well as the ecchysmosis on the right flank. pt still has some tenderness in the suparpubic region and around the umbilicus. vital are stable , pt hypotension is improved and her BP is133/89, HT 55 , RR 16 and saturating 99% on 3 L oxygen. hemoglobin improved 6.7 to 8.2 after 3 units of blood transfusion. creatinine 2.0 abd J: 4.5. pt remains in the ICU currently for close monitoring , critical care and GI team follow up is appreciated. her urine culture is growing psuedomonas and proteus, pt is on aztreonam and flagyl, no diarrhea 10/28/2018 pt is still awake and alert and is oriented to the surrounding , her abdominal pain and hematoma swelling continue to improve. today she has less pain and tenderness at the hematoma site and her supra pubic tenderness and periumbilical tenderness are improved . vitals and BP are stable, hb is 7.9, she had low glucose this morning , but that is corrected. her Cr is improving slightly down to 1.8 ,i discussed the case with her daughter in law . i anticipate pt will be transferred out of the ICU soon . 10/29/2018 Patient is clinically stable compared to yesterday which fully awake and oriented. Her hematoma still to improve but still have some abdominal pain and tenderness. Vitas looks stable. She remains on aztreonam and Flagyl for her pseudomonas and Proteus UTI, creatinine is improving from 1.8 down to 1.6. Repeat chest x-ray showed left-sided pleural effusion and infiltrate. Pulmonary team considering thoracocentesis and patient also thinking about it. I discussed this matter with the patient and the possible need for thoracocentesis. 10/30/2018 Patient is fully awake and oriented, she still have some pain in the right lower quadrant, and also today she has some tenderness at the left lower quadrant but it is mild without rebound tenderness. However his sodium went down to 128 and creatinine came down to 1.29. So the Lasix dose was decreased to once daily. And keep monitoring sodium and creatinine. Left-sided pleural effusion does not need thoracocentesis. Patient will need to go to ECF upon discharge Discharge planning in 24-48 hours. . Objective - Vital Signs Vital signs: Vital Signs Temp 96.2 F L 10/30/18 08:00 Pulse 68 10/30/18 08:05 Resp 16 10/30/18 10:53 BP 154/67 10/30/18 08:00 Pulse Ox 98 10/30/18 08:00 Intake & Output 10/29/18 10/30/18 10/30/18 18:59 06:59 18:59 Intake Total 280 100 0 Output Total 140 600 360 Balance 140 -500 -360 Weight 68.5 kg Intake: IV 180 100 Sodium Chloride 0.9% 1, 80 100 000 ml @ 20 mls/hr IV . Q24H [facility] Rx#:[id number] metroNIDAZOLE-NS PMX 500 100 mg In Saline 1 100ml.bag @ 100 mls/hr IVPB Q8HR [facility] Rx#:[id number] Oral 100 0 Output: Urine 140 600 360 Straight 600 Other: Voiding Method Indwelling Catheter Indwelling Catheter Indwelling Catheter - Exam -GENERAL: The patient is more awake and alert, not in any acute distress. HEENT: Pupils are round and equally reacting to light. EOMI. No scleral icterus. No conjunctival pallor. Normocephalic, atraumatic. No pharyngeal erythema. No thyromegaly. CARDIOVASCULAR: S1 and S2 present. No murmurs, rubs, or gallops. PULMONARY: Chest is clear to auscultation, no wheezing or crackles. -ABDOMEN: Soft, nontender, nondistended, normoactive bowel sounds. No palpable organomegaly. RLQ tender swelling is stable in size , as well as the right flank echymosis is stable as well MUSCULOSKELETAL: No joint swelling or deformity. EXTREMITIES: No cyanosis, clubbing, or pedal edema. NEUROLOGICAL: Gross neurological examination did not reveal any focal deficits. SKIN: No rashes. - Labs CBC & Chem 7: 10/30/18 05:39 10/30/18 05:39 Labs: Abnormal Lab Results - Last 24 Hours (Table) 10/29/18 10/30/18 10/30/18 Range/Units 20:59 01:59 05:39 RBC 2.60 L (3.80-5.40) m/uL Hgb 8.4 L (11.4-16.0) gm/dL Hct 26.1 L (34.0-46.0) % MCV 100.4 H (80.0-100.0) fL RDW 16.9 H (11.5-15.5) % Plt Count 117 L (150-450) k/uL Lymphocytes # 0.4 L (1.0-4.8) k/uL Sodium (137-145) mmol/L Chloride (98-107) mmol/L BUN (7-17) mg/dL Creatinine (0.52-1.04) mg/dL Glucose (74-99) mg/dL POC Glucose (mg/dL) 128 H 164 H (75-99) mg/dL 10/30/18 10/30/18 10/30/18 Range/Units 05:39 06:09 11:25 RBC (3.80-5.40) m/uL Hgb (11.4-16.0) gm/dL Hct (34.0-46.0) % MCV (80.0-100.0) fL RDW (11.5-15.5) % Plt Count (150-450) k/uL Lymphocytes # (1.0-4.8) k/uL Sodium 128 L (137-145) mmol/L Chloride 96 L (98-107) mmol/L BUN 52 H (7-17) mg/dL Creatinine 1.29 H (0.52-1.04) mg/dL Glucose 141 H (74-99) mg/dL POC Glucose (mg/dL) 156 H 133 H (75-99) mg/dL Microbiology - Last 24 Hours (Table) 10/24/18 19:52 Blood Culture - Preliminary Blood No Growth after 120 hours Assessment and Plan Assessment: acute delirium Abdominal pain, mostly related to proctocolitis. abdominal wall hematoma Acute a drop in hemoglobin with blood loss anemia. Acute kidney injury with hyperkalemia Urinary tract infection Possible cirrhosis of the liver with portal hypertension Abdominal wall hematoma measuring 8.7 x 5.1 x 4.7 centimeters History of congestive heart failure History of atrial fibrillation, rate control. Not on anticoagulation History of GERD Hyperlipidemia Essential hypertension History of hypothyroidism Diabetes mellitus, type II Diabetic neuropathy History of sarcoidosis History of multiple drug ALLERGIES Patient is legally blind History of ulcerative colitis History of frequent falls Plan: This is a pleasant 73 years old female who presents with proctocolitis and abdominal wall hematoma, possible sepsis and continue with antibiotics. We'll check for C. diff.transfuse blood and call surgical consult. Labs and medication were reviewed.. Continue same treatment. Continue with symptomatic treatment. Resume home medication. Monitor lytes and vitals. DVT and GI prophylaxis. Further recommendations of the clinical course of the patient DVT prophylaxis: no heparin for now in view of pt hematoma GI Prophylaxis: Pepcid PT/OT: Pending Prognosis is guarded and poor
[2018-10-30 16:58] LABS: Glucose,Whole Blood 145 mg/dL (75-99)
[2018-10-30] MEDS: CALCIUM CARB-VIT D 500MG-200UN 1 EACH TAB PO SCH (17:12)
[2018-10-30] MEDS: metroNIDAZOLE 500 MG TAB PO SCH ×2 (17:12→22:51)
[2018-10-30] MEDS: guaiFENesin SYRUP 100MG/5ML 200 MG/10 ML CUP PO PRN (17:15)
[2018-10-30] MEDS: SODIUM CHLORIDE 0.9% 1,000 ML IV SCH (20:17)
[2018-10-30 20:52] LABS: Glucose,Whole Blood 193 mg/dL (75-99)
[2018-10-30] MEDS: MELATONIN 1 MG TAB PO SCH (21:27)
[2018-10-30] MEDS: OXYBUTYNIN 10 MG TAB.ER.24 PO SCH (21:27)
[2018-10-30] MEDS: ATORVASTATIN 10 MG TAB PO SCH (21:27)
[2018-10-30] MEDS: traZODone HCL 50 MG TAB PO SCH (21:27)
[2018-10-30] MEDS: DOCUSATE 100 MG CAP PO PRN (21:28)
--- NOTE | 2018-10-30 23:26 | PN ---
PROGRESS NOTE DATE OF SERVICE: 10/30/2018. REASON FOR FOLLOWUP: Pseudomonas urinary tract infection, right lower abdominal wall hematoma. INTERVAL HISTORY: The patient is currently afebrile. She is breathing comfortably. The patient did have some cough. No chest pain. The right lower abdominal pain has improved. No nausea, vomiting and no diarrhea. PHYSICAL EXAMINATION: Blood pressure is 157/67 with a pulse of 75, temperature 97.2. She is 99% 2 L nasal cannula. GENERAL DESCRIPTION: An elderly female lying in bed in no distress. RESPIRATORY SYSTEM: Unlabored breathing. Clear to auscultation anteriorly. HEART: S1, S2. Regular rate and rhythm. ABDOMEN: Soft. Right lower abdominal improved with tenderness. EXTREMITIES: No edema of the feet. LABS: Hemoglobin is 8.4, white count 3.8, BUN of 52, creatinine is 1.29. DIAGNOSTIC IMPRESSION AND PLAN: Patient with Pseudomonas urinary tract infection. The patient is currently covered with Azactam. Blood culture have been negative. Currently . Daughter present at bedside. Questions answered. MMODL / IJN: [id number] /
[2018-10-31 05:39] LABS: Anisocytosis Slight; Basophils % (A) 0 %; Eosinophils # (A) 0.1 k/uL (0-0.7); Eosinophils % (A) 2 %; HCT 27.3 % (34.0-46.0); HGB 8.8 gm/dL (11.4-16.0); Lymphocytes # (A) 0.3 k/uL (1.0-4.8); Lymphocytes % (A) 8 %; MCH 32.2 pg (25.0-35.0); MCHC 32.3 g/dL (31.0-37.0); MCV 99.7 fL (80.0-100.0); Macrocytosis Slight; Mean Platelet Volume 6.3; Monocytes # (A) 0.3 k/uL (0-1.0); Monocytes % (A) 8 %; Neutrophils # (A) 3.5 k/uL (1.3-7.7); Neutrophils % (A) 79 %; Platelet Count 101 k/uL (150-450); RBC 2.74 m/uL (3.80-5.40); RDW 17.2 % (11.5-15.5); WBC 4.4 k/uL (3.8-10.6)
[2018-10-31 05:50] LABS: Calcium 8.9 mg/dL (8.4-10.2); Potassium 4.6 mmol/L (3.5-5.1)
[2018-10-31 06:04] LABS: Glucose,Whole Blood 127 mg/dL (75-99)
[2018-10-31] MEDS: LEVOTHYROXINE 137 MCG TAB PO SCH (06:39)
[2018-10-31] MEDS: CARBIDOPA-LEVODOPA 25-100 MG 1 EACH TAB PO SCH ×3 (06:39→20:39)
[2018-10-31] MEDS: PANTOPRAZOLE 40 MG TABLET PO SCH (06:40)
[2018-10-31] MEDS: INSULIN ASPART (NovoLOG) 100 UNIT/ML VIAL SQ SCH ×4 (06:40→20:41)
[2018-10-31] MEDS: guaiFENesin SYRUP 100MG/5ML 200 MG/10 ML CUP PO PRN (08:05)
[2018-10-31] MEDS: AZTREONAM 1 GM in SODIUM CHLORIDE 0.9% 50 ML IVPB SCH ×2 (08:05→20:38)
[2018-10-31] MEDS: FERROUS SULFATE 325 MG TAB PO SCH ×2 (08:05→16:51)
[2018-10-31] MEDS: PRIMIDONE 50 MG TAB PO SCH (08:06)
[2018-10-31] MEDS: DOCUSATE 100 MG CAP PO PRN (08:06)
[2018-10-31] MEDS: metroNIDAZOLE 500 MG TAB PO SCH ×2 (08:06→16:51)
[2018-10-31] MEDS: MAGNESIUM OXIDE 400 MG TAB PO SCH (08:06)
[2018-10-31] MEDS: AMMONIUM LACTATE 12% LOTION 225 GM BTL TOPICAL SCH (08:13)
--- NOTE | 2018-10-31 08:27 | XR ---
EXAMINATION TYPE: XR chest 1V portable DATE OF EXAM: 10/31/2018 COMPARISON: 10/29/2018 HISTORY: Pleural effusion, abnormal x-ray TECHNIQUE: Single frontal view of the chest is obtained. FINDINGS: Bilateral diffuse infiltrate and pleural effusion. Cardiomegaly. Calcified lymph node is s uspected. Previous trauma the shoulders. Arthropathy of the shoulders no pneumothorax. Left-sided PIC C line stable. IMPRESSION: Diffuse bilateral infiltrate and pleural effusion correlate for diffuse pneumonia versus CHF.
[2018-10-31] MEDS ORDERED: FUROSEMIDE 10 MG/ML 2 ML VIAL IV SCH (09:00)
[2018-10-31] MEDS: IPRATROPIUM-ALBUTEROL 3 ML NEB INHALATION SCH ×2 (09:36→19:30)
[2018-10-31] MEDS: SYMBICORT 160-4.5 MCG INHALER INHALATION SCH ×2 (09:36→19:31)
[2018-10-31 11:40] LABS: Glucose,Whole Blood 141 mg/dL (75-99)
[2018-10-31] MEDS: ACETAMINOPHEN TAB 325 MG TAB PO PRN (11:41)
[2018-10-31] MEDS: NON-FORMULARY DRUG (Teriparatide [Forteo] 20 MCG) SQ SCH (11:42)
[2018-10-31] MEDS: VENLAFAXINE HCL ER 75 MG CAP PO SCH (11:42)
[2018-10-31] MEDS: INSULIN DETEMIR (LEVEMIR) 100 UNIT/ML SYR SQ SCH (11:43)
--- NOTE | 2018-10-31 11:57 | XR ---
EXAMINATION TYPE: XR abdomen 1V DATE OF EXAM: 10/31/2018 COMPARISON: NONE HISTORY: Constipation TECHNIQUE: One view abdominal series FINDINGS: The osseous structures are intact. The bowel gas pattern is nonspecific. There are air-filled small and large bowel loops seen throughout the abdomen. Note is made alignment portions of the abdomen are seen in evaluation for free air is nondiagnostic. Upper abdomen not included. Retained fecal debris in the rectum. Arthropathy of the shoulders. IMPRESSION: 1. Nonspecific abdomen. Retained fecal debris in the rectum correlate for impaction
[2018-10-31] MEDS ORDERED: POLYETHYLENE GLYCOL 3350 17 GM POWD.PACK PO STA (12:53)
--- NOTE | 2018-10-31 12:55 | P.DS ---
Providers Date of admission: 10/24/18 17:42 Attending physician: Fern Plascencia Consults: 10/25/18 12:24 Consult Physician Routine Consulting Provider: Raquel Cotto Consult Reason/Comments: Colitis, sepsis Do you want consulting provider notified?: Yes 10/26/18 12:58 Consult Physician Routine Consulting Provider: Kaleb Mckeon Consult Reason/Comments: ICU management Do you want consulting provider notified?: Yes 10/26/18 13:00 Consult Physician Urgent Consulting Provider: Kal Goncalves Consult Reason/Comments: enlarging hematoma Do you want consulting provider notified?: Yes 10/26/18 13:15 Consult Physician Urgent Consulting Provider: Danny Hernandez Consult Reason/Comments: periods of postural hypotension and bradycardia, CHF. bleeding on eliquis Do you want consulting provider notified?: Yes Primary care physician: [facility] Course: This is a pleasant 73 years old female with past medical history of congestive, atrial fibrillation, GERD, hyperlipidemia, hypertension, hypothyroidism, diabetes mellitus type 2, diabetic neuropathy, sarcoidosis, multiple drug ALLERGY, legally blind, ulcerative colitis, frequent falls. This time patient presents because of abdominal pain. Patient is not very good historian. She wasn't sure when the hospital but she stated she has abdominal pain in the right lower quadrant secondary to hematoma, which is evident on abdominal exam as right lower quadrant fluctuating swelling. Patient also has suprapubic tenderness and some epigastric tenderness but they are milder. She complains from cough and phlegm, patient not sure which covered his however patient states that is been going on every day as she has history of asthma. She denies dysuria or change in frequency however she has suprapubic tenderness. In the emergency room, vitals were stable, she is saturating 95% on 2 L oxygen. WBC 3.4K, hemoglobin 10.9. Platelets 112. Sodium 133. Creatinine 1.08. Potassium 4.5. Liver enzymes mildly elevated. Urinalysis is suspicious for infection. CT of the abdomen and pelvis with IV contrast showing bilateral pleural effusion, left more than right with possible underlying infiltrate. Urine culture and sputum cultures are ordered. 10/26/2018 Patient is more confused today and or difficult to wake up. She is developing acute renal failure with trending up creatinine from 1.0 to 1.6, her potassium is slightly elevated. And hemoglobin dropped from 10 down to 7.3. The hematoma mass on her lower anterior abdominal area it looks the same while it is demarcated however patient has new bruises on the right flank area. With call GI consult and transfuse 1 unit of blood. also add iron pills. Hold Lasix and potassium, give 1 dose of Kayexalate. And increase IV fluids.GI consult is appreciated and the recommend repeat colonoscopy in 4-6 weeks. patient likely has pneumonia as she has no respiratory symptoms. 10/27/18 pt is more awake today , no more pallor, no chest pain or dyspena , still has abdominal pain at the hematoma side, which looks stable, as well as the ecchysmosis on the right flank. pt still has some tenderness in the suparpubic region and around the umbilicus. vital are stable , pt hypotension is improved and her BP is133/89, HT 55 , RR 16 and saturating 99% on 3 L oxygen. hemoglobin improved 6.7 to 8.2 after 3 units of blood transfusion. creatinine 2.0 abd J: 4.5. pt remains in the ICU currently for close monitoring , critical care and GI team follow up is appreciated. her urine culture is growing psuedomonas and proteus, pt is on aztreonam and flagyl, no diarrhea 10/28/2018 pt is still awake and alert and is oriented to the surrounding , her abdominal pain and hematoma swelling continue to improve. today she has less pain and tenderness at the hematoma site and her supra pubic tenderness and periumbilical tenderness are improved . vitals and BP are stable, hb is 7.9, she had low glucose this morning , but that is corrected. her Cr is improving slightly down to 1.8 ,i discussed the case with her daughter in law . i anticipate pt will be transferred out of the ICU soon . 10/29/2018 Patient is clinically stable compared to yesterday which fully awake and oriented. Her hematoma still to improve but still have some abdominal pain and tenderness. Vitas looks stable. She remains on aztreonam and Flagyl for her pseudomonas and Proteus UTI, creatinine is improving from 1.8 down to 1.6. Repeat chest x-ray showed left-sided pleural effusion and infiltrate. Pulmonary team considering thoracocentesis and patient also thinking about it. I discussed this matter with the patient and the possible need for thoracocentesis. 10/30/2018 Patient is fully awake and oriented, she still have some pain in the right lower quadrant, and also today she has some tenderness at the left lower quadrant but it is mild without rebound tenderness. However his sodium went down to 128 and creatinine came down to 1.29. So the Lasix dose was decreased to once daily. And keep monitoring sodium and creatinine. Left-sided pleural effusion does not need thoracocentesis. Patient will need to go to [facility]CF upon discharge Discharge planning in 24-48 hours. 10/31/2018 Patient clinically stable with no chest pain, mild dyspnea. She still has some pain in the hematoma site that looks like a stable. No worsening hemoglobin actually hemoglobin is better today at 8.8. Creatinine came back to normal at 1.0 and sodium 129. Sugar is controlled. Vital signs stable. Her abdomen was slightly distended with abdominal x-ray showing fecal impaction. MiraLAX is been added. Currently she is on Lasix 20 mg IV twice a day. Pulmonary team are following the case. Patient Condition at Discharge: Stable Plan - Discharge Summary Discharge Rx Participant: No New Discharge Prescriptions: No Action Carbidopa-Levodopa 25-100 mg [Sinemet 25-100 mg] 1 tab PO TID Multivitamins, Thera [Multivitamin (formulary)] 1 tab PO DAILY@1700 Levothyroxine Sodium 137 mcg PO DAILY@0600 Primidone [Mysoline] 50 mg PO DAILY Venlafaxine HCl ER [Effexor XR] 75 mg PO DAILY Thiamine HCl [Vitamin B-1] 100 mg PO DAILY@1700 Lansoprazole 30 mg PO DAILY@0600 Ergocalciferol [Vitamin D2 (DRISDOL)] 50,000 unit PO ROSA Ferrous Sulfate [Iron] 325 mg PO BID@0800,1700 Docusate [Colace] 100 mg PO BID PRN PRN Reason: Constipation Levocetirizine Dihydrochloride [Xyzal] 5 mg PO HS Vit C/E/Zn/Coppr/Lutein/Zeaxan [Preservision Areds 2 Softgel] 1 tab PO DAILY Fluticasone/Salmeterol [Advair 500-50 Diskus] 1 inhalation PO RT-BID Amiodarone HCl [Pacerone] 200 mg PO DAILY Atorvastatin Calcium [Lipitor] 10 mg PO HS@2100 Calcium Carb/Vitamin D3/Vit K1 [Citracal Soft Chew] 1 tab PO DAILY@1700 Tolterodine Tartrate [Detrol LA] 4 mg PO HS@2100 Bisacodyl [Dulcolax] 10 mg RECTAL DAILY PRN PRN Reason: Constipation INSULIN LISPRO (HumaLOG) [humaLOG] See Protocol SQ HS Folic Acid 1 mg PO DAILY@1700 Magnesium Hydroxide [Milk of Magnesia] 2,400 mg PO DAILY PRN PRN Reason: Constipation amLODIPine [Norvasc] 5 mg PO DAILY tab Metoprolol Tartrate [Lopressor] 25 mg PO BID tab Tetrahydrozoline 0.05% Ophth [Visine Eye Drops] 1 drops BOTH EYES TID PRN ml PRN Reason: Eye Irritation Acetaminophen Tab [Tylenol] 650 mg PO Q6HR PRN tab PRN Reason: Mild Pain Or Fever > 100.5 Melatonin 1 mg PO HS PRN PRN Reason: Insomnia Ipratropium-Albuterol Nebulize [Duoneb 0.5 mg-3 mg/3 ml Soln] 3 ml INHALATION RT-QID PRN PRN Reason: Shortness Of Breath Or Wheezing Na Phos,M-B/Na Phos,Di-Ba [Fleet Adult] 133 ml RECTAL DAILY PRN PRN Reason: Constipation Menthol [Biofreeze] 1 applic TOPICAL QID PRN PRN Reason: Pain INSULIN LISPRO (HumaLOG) [HumaLOG] See Protocol SQ AC-TID Lactose-Reduced Food [Ensure Plus] 240 ml PO TID@0800,1700,2100 Ipratropium-Albuterol Nebulize [Duoneb 0.5 mg-3 mg/3 ml Soln] 3 ml INHALATION RT-BID Apixaban [Eliquis] 5 mg PO BID@0800,1700 traZODone HCL 50 mg PO HS Potassium Chloride [Klor-Con 20] 20 meq PO DAILY Magnesium Oxide [Mag-Ox] 400 mg PO DAILY Furosemide [Lasix] 80 mg PO DAILY Furosemide [Lasix] 40 mg PO DAILY@1400 Insulin Detemir (Levemir) [Levemir] 5 unit SQ QAM Ammonium Lactate Lotion [Lac-Hydrin 12% Lotion] 1 applic TOPICAL DAILY Teriparatide [Forteo] 20 mcg SQ DAILY Discharge Medication List Carbidopa-Levodopa 25-100 mg [Sinemet 25-100 mg] 1 tab PO TID 01/15/16 [History] Levothyroxine Sodium 137 mcg PO DAILY@0600 04/28/18 [History] Multivitamins, Thera [Multivitamin (formulary)] 1 tab PO DAILY@1700 04/28/18 [ History] Amiodarone HCl [Pacerone] 200 mg PO DAILY 08/09/18 [History] Atorvastatin Calcium [Lipitor] 10 mg PO HS@2100 08/09/18 [History] Calcium Carb/Vitamin D3/Vit K1 [Citracal Soft Chew] 1 tab PO DAILY@1700 [History] Docusate [Colace] 100 mg PO BID PRN 08/09/18 [History] Ergocalciferol [Vitamin D2 (DRISDOL)] 50,000 unit PO ROSA 08/09/18 [History] Ferrous Sulfate [Iron] 325 mg PO BID@0800,1700 08/09/18 [History] Fluticasone/Salmeterol [Advair 500-50 Diskus] 1 inhalation PO RT-BID 08/09/18 [ History] Lansoprazole 30 mg PO DAILY@0600 08/09/18 [History] Levocetirizine Dihydrochloride [Xyzal] 5 mg PO HS 08/09/18 [History] Primidone [Mysoline] 50 mg PO DAILY 08/09/18 [History] Thiamine HCl [Vitamin B-1] 100 mg PO DAILY@1700 08/09/18 [History] Tolterodine Tartrate [Detrol LA] 4 mg PO HS@2100 08/09/18 [History] Venlafaxine HCl ER [Effexor XR] 75 mg PO DAILY 08/09/18 [History] Vit C/E/Zn/Coppr/Lutein/Zeaxan [Preservision Areds 2 Softgel] 1 tab PO DAILY [History] Bisacodyl [Dulcolax] 10 mg RECTAL DAILY PRN 09/12/18 [History] Folic Acid 1 mg PO DAILY@1700 09/12/18 [History] INSULIN LISPRO (HumaLOG) [humaLOG] See Protocol SQ HS 09/12/18 [History] Magnesium Hydroxide [Milk of Magnesia] 2,400 mg PO DAILY PRN 12/31/18 [History] Acetaminophen Tab [Tylenol] 650 mg PO Q6HR PRN tab 09/23/18 [Rx] Metoprolol Tartrate [Lopressor] 25 mg PO BID tab 09/23/18 [Rx] Tetrahydrozoline 0.05% Ophth [Visine Eye Drops] 1 drops BOTH EYES TID PRN ml [Rx] amLODIPine [Norvasc] 5 mg PO DAILY tab 09/23/18 [Rx] Ammonium Lactate Lotion [Lac-Hydrin 12% Lotion] 1 applic TOPICAL DAILY 10/24/18 [History] Apixaban [Eliquis] 5 mg PO BID@0800,1700 10/24/18 [History] Furosemide [Lasix] 40 mg PO DAILY@1400 10/24/18 [History] Furosemide [Lasix] 80 mg PO DAILY 10/24/18 [History] INSULIN LISPRO (HumaLOG) [HumaLOG] See Protocol SQ AC-TID 10/24/18 [History] Insulin Detemir (Levemir) [Levemir] 5 unit SQ QAM 10/24/18 [History] Ipratropium-Albuterol Nebulize [Duoneb 0.5 mg-3 mg/3 ml Soln] 3 ml INHALATION RT -BID 10/24/18 [History] Ipratropium-Albuterol Nebulize [Duoneb 0.5 mg-3 mg/3 ml Soln] 3 ml INHALATION RT -QID PRN 10/24/18 [History] Lactose-Reduced Food [Ensure Plus] 240 ml PO TID@0800,1700,2100 10/24/18 [ History] Magnesium Oxide [Mag-Ox] 400 mg PO DAILY 10/24/18 [History] Melatonin 1 mg PO HS PRN 10/24/18 [History] Menthol [Biofreeze] 1 applic TOPICAL QID PRN 10/24/18 [History] Na Phos,M-B/Na Phos,Di-Ba [Fleet Adult] 133 ml RECTAL DAILY PRN 10/24/18 [ History] Potassium Chloride [Klor-Con 20] 20 meq PO DAILY 10/24/18 [History] Teriparatide [Forteo] 20 mcg SQ DAILY 10/24/18 [History] traZODone HCL 50 mg PO HS 10/24/18 [History] Follow up Appointment(s)/Referral(s): Naresh Morales DO [Primary Care Provider] - 1-2 days Dmitriy Montgomery MD [STAFF PHYSICIAN] - 2 Weeks (Follow up in regards to catheter) Activity/Diet/Wound Care/Special Instructions: Smith catheter to be changed monthly.
[2018-10-31] MEDS: LACTULOSE 20 GM/30 ML CUP PO SCH ×2 (13:59→16:51)
[2018-10-31 14:35] VITALS: BMI 30.3
--- NOTE | 2018-10-31 14:55 | P.PN ---
Subjective Progress Note Date: 10/31/18 Principal diagnosis: abdominal wall hematoma and anemia secondary to blood loss This 73-year-old white female patient of Dr. Morales, with multiple medical problems, including chronic atrial fibrillation on chronic anticoagulation, chronic congestive heart failure, COPD, diabetes mellitus type 2, hypertension, hyperlipidemia, chronic kidney disease, hypothyroidism, Parkinson's, previous stroke with left eye blindness, DJD, gait dysfunction, ulcerative colitis, recurrent urinary tract infections with previous history of vancomycin- resistant enterococcus UTI. Patient was recently hospitalized in September for mental status changes, hyponatremia, acute exacerbation of CHF with diastolic dysfunction, slurred speech and a right facial droop. Computed tomography scan of the brain did not show an acute intracranial process. She was found to have significant bilateral carotid artery stenosis of greater than 70%. MRI scan of the brain did reveal right nonhemorrhagic ophthalmic infarct. Patient does have lower extremity wounds, and following discharge from the hospital she was sent to the skilled nursing on IV vancomycin. Blood culture showed evidence of MSSA, however patient had multiple ALLERGIES including to cephalosporins, therefore requiring vancomycin infusions.On 10/24/2018 patient was brought to the emergency department per EMS from the skilled nursing for evaluation of developing hematoma over the right lower quadrant of her abdomen, which has been developing over a period of time but is now acutely tender and painful. Patient denied any recent fall, or trauma to the area. She has been having occasional fevers and chills area. Denied any chest pain, shortness of breath, cough, chest congestion. She had recently finished a lengthy course of IV vancomycin. She has a chronic indwelling Smith catheter in place, due to concern for frequent falls and inability to ambulate. Blood work on 10/24/2018 revealed a white blood cell count of 3.4, hemoglobin of 10.9, sodium was 133, potassium is 4.5, chloride is 90, CO2 is 38, B1 is 37, creatinine is 1.08. Amylase was less than 30, lipase was 16. ProBNP was 2230. Urinalysis showed small amount of blood, large amount white blood cells, related to underlying urinary tract infection. Patient was also having some abdominal discomfort. She was placed on a combination of Azactam and Flagyl. She has been afebrile during this admission. This morning patient was getting up to the bathroom, when she became briefly unresponsive, she was bradycardic with a heart rate in the 30s, and hypotensive. She was placed back in bed and she came to. She was given IV fluid bolus, stat CT of the abdomen and pelvis was obtained, and showed a large hematoma involving or overlying the right external oblique, measuring 8.8 x 5.0 x 7.3 cm. The blood work was obtained, and showed hemoglobin down to 6.6, sodium 132, potassium is 5.9, BUN 42, creatinine is 1.84. She was transferred to the intensive care unit for further monitoring, she is being transfused with 1 unit of packed red blood cells. And this consult was initiated. Currently blood pressure is 98/58, heart rate is 52, pulse ox is 94% on 3 L, patient is afebrile, she is pale, but in no acute distress. Denies any chest pain or shortness of breath Patient was reevaluated today on 10/27/2018, feeling better, no further episodes of syncope since she was admitted to the intensive care unit. He received so far a total of 2 units of packed RBCs, hemoglobin was 6.7 this morning, and Nexium hemoglobin is pending after the last unit of packed RBCs given. Patient is hemodynamically stable. Chest x-ray showed evidence of congestive heart failure with good sized left-sided pleural effusion further noted on ultrasound the chest, may or may not require thoracentesis. In the meantime we'll try to diuretics for what seems to be a picture of congestive heart failure and fluid overload urine culture came back positive for Pseudomonas and Proteus, and that is being addressed by infectious disease on the case. Renal profile today is a bit worse, BUN is 48 creatinine is 2.0. Baseline creatinine on admission was 1.08. Clinically however the patient is feeling better. Continues to have good sized hematoma in the right lower quadrant area. Reevaluated today on 10/28/2018, patient had no further syncopal episodes, seems to be quite comfortable in the ICU. Hemodynamically stable. Received a total of 2 units of packed RBCs for her blood loss and abdominal wall hematoma.hemoglobin today is 7.9. Platelets are 126,000.all her labs were reviewed, and she had a relatively normal electrolytes, BUN is 52 creatinine is down to 1.87 from 2.0 yesterday.chest x-ray continues to show moderate left- sided pleural effusion, patient has been reluctant about having thoracentesis. In the meantime she is receiving diuretics.and I plan to give her diuretics again today she did receive 20 mg IV push yesterday.however I have a feeling that the patient may eventually require thoracentesis if she is agreeable to have it done. Reevaluated today on 10/29/2018, patient is doing relatively well, remains in the ICU, very comfortable, continues to have a small left pleural effusion noted on the chest x-ray, but the patient is relatively asymptomatic. No cough no wheezing no shortness of breath no chest pain, abdominal hematoma is basically about the same.hemoglobin is 8.2 WBC count is 3.9 electrode are normal BUN is 52 creatinine is 1.65.remains on Lasix at 20 mg IV push every 12 hours Patient was reevaluated today on 10/30/2018, she is now on the cardiac floor, resting in bed, comfortable, in no distress. Her abdominal wall hematoma is basically the same, and her hemoglobin is holding at 8.4. She has been on diuretics, however considering her sodium is 128 today, BUN is 52 and creatinine is 1.29, I will go ahead and cut down on her diuretics. No chest x- ray was done today, but clinically the patient is feeling better, breathing easier overall. She did have a small tiny left pleural effusion, did not feel it is large enough to consider thoracentesis at this point. on 10/31/2018 patient seen in follow-up on acute care unit. She is awake and alert, denies any acute distress other than discomfort associated with constipation, patient has not had a bowel movement in several days, x-ray of the abdomen showed nonspecific abdomen, retained fecal debris in the rectum, possibly related to impaction, patient was given a dose of Colace and MiraLAX, with no results, we will give the patient a couple doses of lactulose. She denies any shortness of breath, denies any chest pain, the hematoma on the right side of her abdomen is starting to fade, and seems to have decreased in size, lung sounds are as a for some diffuse fine rales, today's chest x-ray showed diffuse bilateral infiltrates and pleural effusion. abiotic coverage is Azactam and Flagyl. Today's blood work has been reviewed and in showed a white blood cell count of 4.4, hemoglobin of 8.8, serum sodium is 129, potassium is 4.6, chloride is 96, CO2 was 24, BUN was 48 and creatinine was 1.04. Objective - Vital Signs Vital signs: Vital Signs Temp 97 F L 10/31/18 08:00 Pulse 79 10/31/18 12:00 Resp 16 10/31/18 14:34 BP 177/75 10/31/18 12:00 Pulse Ox 100 10/31/18 12:00 Intake & Output 10/30/18 10/31/18 10/31/18 18:59 06:59 18:59 Intake Total 360 210 Output Total 360 425 300 Balance 0 -215 -300 Weight 70.5 kg 70.5 kg Intake: IV 200 210 Aztreonam 1 gm In Sodium 100 50 Chloride 0.9% 50 ml @ 100 mls/hr IVPB Q12HR [facility] Rx #:[id number] Sodium Chloride 0.9% 1, 160 000 ml @ 20 mls/hr IV . Q24H [facility] Rx#:[id number] metroNIDAZOLE-NS PMX 500 100 mg In Saline 1 100ml.bag @ 100 mls/hr IVPB Q8HR [facility] Rx#:[id number] Intake, IV Titration 160 Amount Sodium Chloride 0.9% 1, 160 000 ml @ 20 mls/hr IV . Q24H [facility] Rx#:[id number] Oral 0 Output: Urine 360 425 300 Other: Voiding Method Indwelling Catheter Indwelling Catheter Indwelling Catheter - Exam GENERAL EXAM: Alert, pleasant, 73-year-old white female currently on 2 L per nasal cannula with pulse ox of 100%comfortable in no apparent distress. HEAD: Normocephalic/atraumatic. EYES: Normal reaction of pupils, equal size. Conjunctiva pink, sclera white. NOSE: Clear with pink turbinates. THROAT: No erythema or exudates. NECK: No masses, no JVD, no thyroid enlargement, no adenopathy. CHEST: No chest wall deformity. Symmetrical expansion. LUNGS: Equal air entry with diffuse fine rales CVS: Regular rate and rhythm, normal S1 and S2, no gallops, no murmurs, no rubs ABDOMEN: Soft, nontender. No hepatosplenomegaly, normal bowel sounds, no guarding or rigidity.large right-sided abdominal hematoma, which is starting to fade, and originally been outlined by a marker, and has definitely decreased in size is on the initial marker lines EXTREMITIES: No clubbing, no edema, no cyanosis, 2+ pulses and upper and lower extremities. MUSCULOSKELETAL: Muscle strength and tone normal. SPINE: No scoliosis or deformity SKIN: No rashes CENTRAL NERVOUS SYSTEM: Alert and oriented -3. No focal deficits, tone is normal in all 4 extremities. PSYCHIATRIC: Alert and oriented -3. Appropriate affect. Intact judgment and insight. - Labs CBC & Chem 7: 10/31/18 05:29 10/31/18 05:29 Labs: Abnormal Lab Results - Last 24 Hours (Table) 10/30/18 10/30/18 10/31/18 Range/Units 16:56 20:51 05:29 RBC 2.74 L (3.80-5.40) m/uL Hgb 8.8 L (11.4-16.0) gm/dL Hct 27.3 L (34.0-46.0) % RDW 17.2 H (11.5-15.5) % Plt Count 101 L (150-450) k/uL Lymphocytes # 0.3 L (1.0-4.8) k/uL Sodium (137-145) mmol/L Chloride (98-107) mmol/L BUN (7-17) mg/dL Glucose (74-99) mg/dL POC Glucose (mg/dL) 145 H 193 H (75-99) mg/dL 10/31/18 10/31/18 10/31/18 Range/Units 05:29 06:02 11:31 RBC (3.80-5.40) m/uL Hgb (11.4-16.0) gm/dL Hct (34.0-46.0) % RDW (11.5-15.5) % Plt Count (150-450) k/uL Lymphocytes # (1.0-4.8) k/uL Sodium 129 L (137-145) mmol/L Chloride 96 L (98-107) mmol/L BUN 48 H (7-17) mg/dL Glucose 123 H (74-99) mg/dL POC Glucose (mg/dL) 127 H 141 H (75-99) mg/dL Microbiology - Last 24 Hours (Table) 10/24/18 19:52 Blood Culture - Final Blood No Growth after 144 hours Assessment and Plan Plan: Assessment: 1 acute symptomatic anemia secondary to blood loss secondary to large abdominal wall hematoma most likely related to anticoagulation therapy/eliquis. 2 acute hypotension associated with bradycardia, and associated with blood loss , improving with blood transfusion. 3 acute kidney injury, multifactorial likely related to hypotension/acute tubular necrosis although medication-induced kidney injury is not entirely ruled out 4 electrolytes imbalance including hyponatremia and hypokalemia as well as hypomagnesemia, likely diuretics induced. 5 suspect some component of congestive heart failure likely diastolic in nature with left-sided pleural effusion, presently small, no need for thoracentesis at this point 6 acute urinary tract infection, being addressed by infectious disease on the case. 7 recent ischemic infarct noted on recent MRI. 8 carotid artery stenosis 9 type 2 diabetes 10 underlying COPD 11 Parkinson's disease 12 hypothyroidism 13 degenerative joint disease 14 ulcerative colitis and irritable bowel syndrome 15 recurrent episodes of urinary tract infections. Plan: Continue current medical treatment, antibiotics, patient is hemodynamically stable, taking good oxygenation on 2 L per nasal cannula, no worsening dyspnea, no chest pain, no fever or chills. Complaining of constipation, we'll give the patient a couple doses of lactulose, she had been started on MiraLAX. we'll continue to follow.Continue nebulized bronchodilators. continue IV diuretics. today's chest x-ray has been reviewed, and shows stable findings of diffuse bilateral infiltrates and pleural effusion. Clinically patient is stable. From pulmonary perspective she could be considered for discharge back to the skilled nursing today I performed a history & physical examination of the patient and discussed their management with my nurse practitioner, Alesha Rodriguez. I reviewed the nurse practitioner's note and agree with the documented findings and plan of care. Lung sounds are positive for diminsihed breath sounds. The findings and the impression was discussed with the patient. I attest to the documentation by the nurse practitioner. Time with Patient: Less than 30
[2018-10-31 16:24] LABS: Glucose,Whole Blood 181 mg/dL (75-99)
[2018-10-31] MEDS: CALCIUM CARB-VIT D 500MG-200UN 1 EACH TAB PO SCH (16:51)
--- NOTE | 2018-10-31 20:32 | PN ---
PROGRESS NOTE DATE OF SERVICE: 10/31/2018. REASON FOR FOLLOWUP: Pseudomonas urinary tract infection. INTERVAL HISTORY: The patient is currently afebrile. She is breathing comfortably. The patient has been complaining of constipation and no bowel movement for the last few days. Lactulose has been ordered for relief for the same. The patient denies having any chest pain. No shortness of breath or cough. PHYSICAL EXAMINATION: Blood pressure is 159/74 with a pulse of 79, temperature 98. She is 96% on 2 L nasal cannula. General description is an elderly female lying in bed in no distress. RESPIRATORY SYSTEM: Unlabored breathing. Clear to auscultation anteriorly. HEART: S1, S2. Regular rate and rhythm. ABDOMEN: Soft, no tenderness. No rigidity. Right lower abdominal area bruise is slightly decreased intensity. LABS: Hemoglobin is 8.8 with white count 4.4, BUN of 48, creatinine 1.04. DIAGNOSTIC IMPRESSION AND PLAN: Patient with Pseudomonas urinary tract infection. The patient is currently on Azactam because of her MULTIPLE ANTIBIOTIC ALLERGIES to continue. Hopefully discontinued at time of discharge. Continue the Flagyl. Continue supportive care. Daughter was present at bedside. Questions were answered. MMODL / IJN: [id number] /
[2018-10-31] MEDS: FUROSEMIDE 10 MG/ML 2 ML VIAL IV SCH (20:38)
[2018-10-31] MEDS: ATORVASTATIN 10 MG TAB PO SCH (20:38)
[2018-10-31] MEDS: traZODone HCL 50 MG TAB PO SCH (20:39)
[2018-10-31] MEDS: OXYBUTYNIN 10 MG TAB.ER.24 PO SCH (20:39)
[2018-10-31] MEDS: MELATONIN 1 MG TAB PO SCH (20:39)
[2018-10-31] MEDS: SODIUM CHLORIDE 0.9% 1,000 ML IV SCH (20:39)
[2018-10-31 20:57] LABS: Glucose,Whole Blood 148 mg/dL (75-99)
[2018-10-31 23:31] LABS: Potassium 4.8 mmol/L (3.5-5.1)
[2018-11-01 01:23] VITALS: RESP 18
[2018-11-01 05:59] LABS: Glucose,Whole Blood 99 mg/dL (75-99)
[2018-11-01] MEDS: INSULIN ASPART (NovoLOG) 100 UNIT/ML VIAL SQ SCH ×3 (06:31→17:02)
[2018-11-01] MEDS: PANTOPRAZOLE 40 MG TABLET PO SCH (06:34)
[2018-11-01] MEDS: LEVOTHYROXINE 137 MCG TAB PO SCH (06:34)
[2018-11-01] MEDS: CARBIDOPA-LEVODOPA 25-100 MG 1 EACH TAB PO SCH ×2 (06:34→16:22)
[2018-11-01] MEDS: ACETAMINOPHEN TAB 325 MG TAB PO PRN (06:35)
[2018-11-01 07:44] LABS: Calcium 8.8 mg/dL (8.4-10.2); Potassium 3.9 mmol/L (3.5-5.1)
[2018-11-01] MEDS: SYMBICORT 160-4.5 MCG INHALER INHALATION SCH (08:15)
[2018-11-01] MEDS: IPRATROPIUM-ALBUTEROL 3 ML NEB INHALATION SCH (08:15)
[2018-11-01] MEDS: NON-FORMULARY DRUG (Teriparatide [Forteo] 20 MCG) SQ SCH (08:50)
[2018-11-01] MEDS: LACTULOSE 20 GM/30 ML CUP PO SCH (08:50)
[2018-11-01] MEDS: AZTREONAM 1 GM in SODIUM CHLORIDE 0.9% 50 ML IVPB SCH (09:00)
[2018-11-01] MEDS: VENLAFAXINE HCL ER 75 MG CAP PO SCH (09:00)
[2018-11-01] MEDS: FERROUS SULFATE 325 MG TAB PO SCH ×2 (09:00→16:22)
[2018-11-01] MEDS: AMMONIUM LACTATE 12% LOTION 225 GM BTL TOPICAL SCH (09:00)
[2018-11-01] MEDS: PRIMIDONE 50 MG TAB PO SCH (09:00)
[2018-11-01] MEDS: FUROSEMIDE 10 MG/ML 2 ML VIAL IV SCH (09:00)
[2018-11-01] MEDS: INSULIN DETEMIR (LEVEMIR) 100 UNIT/ML SYR SQ SCH (09:26)
--- NOTE | 2018-11-01 11:01 | CDI ---
Documentation Clarification Form Date: 11/01/2018 From: Tiffani Crenshaw RN CCDS Admit Date: 10/24/2018 5:42:00 PM Patient Name: Soledad Chou Visit Number: [id number] Discharge Date: ATTENTION: The Clinical Documentation Specialists (CDI) and [facility] Coding Staff appreciate your assistance in clarifying documentation. Please respond to the clarification below the line at the bottom and electronically sign. The CDI & [facility] Coding staff will review the response and follow-up if needed. Please note: Queries are made part of the Legal Health Record. If you have any questions, please contact the author of this message via ITS. Dr. Toney Rodrigez Delirium is documented in the 11/01/2018 Progress Note. History/Risk Factors: 73 year old female presents to the ED for abdominal pain Medical history of Atrial fib, GERD, HTN, Indwelling Smith Catheter, DM2, Clinical Indicators: Progress note dated 10/26/2018 Patient is more confused today and difficult to wake up. She is developing Acute renal failure trending up creatinine from 1.0 to 1.6, her potassium is slightly elevated. and Hgb dropped from 10 to 7.3 Treatment: Transfused 1Unit PRBC, Hold Lasix, 1 dose Kayexalate and increased IV Fluids. Consults: ID, Wet Process Miller, GI In your professional opinion, can you please clarify the specific type of Altered Mental status , if known? * Acute Metabolic Encephalopathy * Other, please specify * Unable to determine (Last Revision: December 2017) acute metabolic encephalopathy , resolved upon discharge MTDD
[2018-11-01 11:43] LABS: Glucose,Whole Blood 105 mg/dL (75-99)
--- NOTE | 2018-11-01 13:58 | PN ---
PROGRESS NOTE DATE OF SERVICE: 11/01/2018 REASON FOR FOLLOW UP: Pseudomonas urinary intact infection. INTERVAL HISTORY: The patient is currently afebrile. She appears to be feeling better. The patient's appetite is low as mentioned, did not feel like eating, but still has some nausea but no abdominal pain. Did mention she had small bowel movement yesterday. PHYSICAL EXAMINATION: Blood pressure 156/78 with a pulse of 81, temperature 97.3. She is 100% on 2 L nasal cannula. General description is an elderly female, up in the bed in no distress. RESPIRATORY SYSTEM: Unlabored breathing, clear to auscultation anteriorly. HEART: S1, S2. Regular rate and rhythm. ABDOMEN: Soft, no tenderness. LABS: BUN of 39, creatinine 0.96. DIAGNOSTIC IMPRESSION AND PLAN: Patient with Pseudomonas urinary tract infection. This patient did have multiple antibiotic allergies. Currently on IV Azactam that should would continue for another 3 days at the alf to finish a course of therapy. The PICC line should be discontinued after completed antibiotic. Family present at bedside. Questions were answered. MMODL / IJN: [id number] /
--- NOTE | 2018-11-01 14:27 | P.PN ---
Subjective Progress Note Date: 11/01/18 Principal diagnosis: Abdominal wall hematoma, anemia secondary to blood loss. This 73-year-old white female patient of Dr. Morales, with multiple medical problems, including chronic atrial fibrillation on chronic anticoagulation, chronic congestive heart failure, COPD, diabetes mellitus type 2, hypertension, hyperlipidemia, chronic kidney disease, hypothyroidism, Parkinson's, previous stroke with left eye blindness, DJD, gait dysfunction, ulcerative colitis, recurrent urinary tract infections with previous history of vancomycin- resistant enterococcus UTI. Patient was recently hospitalized in September for mental status changes, hyponatremia, acute exacerbation of CHF with diastolic dysfunction, slurred speech and a right facial droop. Computed tomography scan of the brain did not show an acute intracranial process. She was found to have significant bilateral carotid artery stenosis of greater than 70%. MRI scan of the brain did reveal right nonhemorrhagic ophthalmic infarct. Patient does have lower extremity wounds, and following discharge from the hospital [facility]. Blood culture showed evidence of MSSA, however patient had multiple ALLERGIES including to cephalosporins, therefore requiring vancomycin infusions.On 10/24/2018 patient was brought to the emergency department per [facility] from the [facility] for evaluation of developing hematoma over the right lower quadrant of her abdomen, which has been developing over a period of time but is now acutely tender and painful. Patient denied any recent fall, or trauma to the area. She has been having occasional fevers and chills area. Denied any chest pain, shortness of breath, cough, chest congestion. She had recently finished a lengthy course of IV vancomycin. She has a chronic indwelling Smith catheter in place, due to concern for frequent falls and inability to ambulate. Blood work on 10/24/2018 revealed a white blood cell count of 3.4, hemoglobin of 10.9, sodium was 133, potassium is 4.5, chloride is 90, CO2 is 38, B1 is 37, creatinine is 1.08. Amylase was less than 30, lipase was 16. ProBNP was 2230. Urinalysis showed small amount of blood, large amount white blood cells, related to underlying urinary tract infection. Patient was also having some abdominal discomfort. She was placed on a combination of Azactam and Flagyl. She has been afebrile during this admission. This morning patient was getting up to the bathroom, when she became briefly unresponsive, she was bradycardic with a heart rate in the 30s, and hypotensive. She was placed back in bed and she came to. She was given IV fluid bolus, stat CT of the abdomen and pelvis was obtained, and showed a large hematoma involving or overlying the right external oblique, measuring 8.8 x 5.0 x 7.3 cm. The blood work was obtained, and showed hemoglobin down to 6.6, sodium 132, potassium is 5.9, BUN 42, creatinine is 1.84. She was transferred to the intensive care unit for further monitoring, she is being transfused with 1 unit of packed red blood cells. And this consult was initiated. Currently blood pressure is 98/58, heart rate is 52, pulse ox is 94% on 3 L, patient is afebrile, she is pale, but in no acute distress. Denies any chest pain or shortness of breath Patient was reevaluated today on 10/27/2018, feeling better, no further episodes of syncope since she was admitted to the intensive care unit. He received so far a total of 2 units of packed RBCs, hemoglobin was 6.7 this morning, and Nexium hemoglobin is pending after the last unit of packed RBCs given. Patient is hemodynamically stable. Chest x-ray showed evidence of congestive heart failure with good sized left-sided pleural effusion further noted on ultrasound the chest, may or may not require thoracentesis. In the meantime we'll try to diuretics for what seems to be a picture of congestive heart failure and fluid overload urine culture came back positive for Pseudomonas and Proteus, and that is being addressed by infectious disease on the case. Renal profile today is a bit worse, BUN is 48 creatinine is 2.0. Baseline creatinine on admission was 1.08. Clinically however the patient is feeling better. Continues to have good sized hematoma in the right lower quadrant area. Reevaluated today on 10/28/2018, patient had no further syncopal episodes, seems to be quite comfortable in the ICU. Hemodynamically stable. Received a total of 2 units of packed RBCs for her blood loss and abdominal wall hematoma.hemoglobin today is 7.9. Platelets are 126,000.all her labs were reviewed, and she had a relatively normal electrolytes, BUN is 52 creatinine is down to 1.87 from 2.0 yesterday.chest x-ray continues to show moderate left- sided pleural effusion, patient has been reluctant about having thoracentesis. In the meantime she is receiving diuretics.and I plan to give her diuretics again today she did receive 20 mg IV push yesterday.however I have a feeling that the patient may eventually require thoracentesis if she is agreeable to have it done. Reevaluated today on 10/29/2018, patient is doing relatively well, remains in the ICU, very comfortable, continues to have a small left pleural effusion noted on the chest x-ray, but the patient is relatively asymptomatic. No cough no wheezing no shortness of breath no chest pain, abdominal hematoma is basically about the same.hemoglobin is 8.2 WBC count is 3.9 electrode are normal BUN is 52 creatinine is 1.65.remains on Lasix at 20 mg IV push every 12 hours Patient was reevaluated today on 10/30/2018, she is now on the cardiac floor, resting in bed, comfortable, in no distress. Her abdominal wall hematoma is basically the same, and her hemoglobin is holding at 8.4. She has been on diuretics, however considering her sodium is 128 today, BUN is 52 and creatinine is 1.29, I will go ahead and cut down on her diuretics. No chest x- ray was done today, but clinically the patient is feeling better, breathing easier overall. She did have a small tiny left pleural effusion, did not feel it is large enough to consider thoracentesis at this point. on 10/31/2018 patient seen in follow-up on acute care unit. She is awake and alert, denies any acute distress other than discomfort associated with constipation, patient has not had a bowel movement in several days, x-ray of the abdomen showed nonspecific abdomen, retained fecal debris in the rectum, possibly related to impaction, patient was given a dose of Colace and MiraLAX, with no results, we will give the patient a couple doses of lactulose. She denies any shortness of breath, denies any chest pain, the hematoma on the right side of her abdomen is starting to fade, and seems to have decreased in size, lung sounds are as a for some diffuse fine rales, today's chest x-ray showed diffuse bilateral infiltrates and pleural effusion. abiotic coverage is Azactam and Flagyl. Today's blood work has been reviewed and in showed a white blood cell count of 4.4, hemoglobin of 8.8, serum sodium is 129, potassium is 4.6, chloride is 96, CO2 was 24, BUN was 48 and creatinine was 1.04. The patient is seen today 11/01/2017 in follow-up on the selective care unit. She is currently resting comfortably in bed. Awake and alert in no acute distress. She did have good success following the lactulose given to her yesterday. No further constipation. He is breathing easier today. Maintaining O2 saturations in the mid 90s on room air. She's afebrile. Hemodynamically stable. Blood culture reveals no growth. Urine had revealed Proteus vulgaris, pseudomonas aeruginosa. Currently on aztreonam. No pulmonary complaints. Objective - Vital Signs Vital signs: Vital Signs Temp 97.9 F 11/01/18 12:40 Pulse 93 11/01/18 12:40 Resp 18 11/01/18 12:40 BP 139/63 11/01/18 12:40 Pulse Ox 94 L 11/01/18 12:40 Intake & Output 10/31/18 11/01/18 11/01/18 18:59 06:59 18:59 Intake Total 0 Output Total 300 801 Balance -300 -801 0 Weight 70.5 kg 71 kg Intake: Oral 0 Output: Urine 300 800 Stool 1 Other: Voiding Method Indwelling Catheter Indwelling Catheter Indwelling Catheter # Voids 0 # Bowel Movements 1 0 - Exam GENERAL EXAM: Alert, pleasant, 73-year-old white female currently on room air with O2 saturations in the mid 90s, comfortable in no apparent distress. HEAD: Normocephalic/atraumatic. EYES: Normal reaction of pupils, equal size. Conjunctiva pink, sclera white. NOSE: Clear with pink turbinates. THROAT: No erythema or exudates. NECK: No masses, no JVD, no thyroid enlargement, no adenopathy. CHEST: No chest wall deformity. Symmetrical expansion. LUNGS: Equal air entry with diffuse fine rales CVS: Regular rate and rhythm, normal S1 and S2, no gallops, no murmurs, no rubs ABDOMEN: Soft, nontender. No hepatosplenomegaly, normal bowel sounds, no guarding or rigidity.large right-sided abdominal hematoma, which is starting to fade, and originally been outlined by a marker, and has definitely decreased in size is on the initial marker lines EXTREMITIES: No clubbing, no edema, no cyanosis, 2+ pulses and upper and lower extremities. MUSCULOSKELETAL: Muscle strength and tone normal. SPINE: No scoliosis or deformity SKIN: No rashes CENTRAL NERVOUS SYSTEM: Alert and oriented -3. No focal deficits, tone is normal in all 4 extremities. PSYCHIATRIC: Alert and oriented -3. Appropriate affect. Intact judgment and insight. - Labs CBC & Chem 7: 10/31/18 05:29 11/01/18 06:05 Labs: Abnormal Lab Results - Last 24 Hours (Table) 10/31/18 10/31/18 10/31/18 Range/Units 16:20 20:37 22:26 Sodium 131 L (137-145) mmol/L BUN 45 H (7-17) mg/dL Glucose 103 H (74-99) mg/dL POC Glucose (mg/dL) 181 H 148 H (75-99) mg/dL 11/01/18 11/01/18 Range/Units 06:05 11:40 Sodium 130 L (137-145) mmol/L BUN 39 H (7-17) mg/dL Glucose (74-99) mg/dL POC Glucose (mg/dL) 105 H (75-99) mg/dL Assessment and Plan Assessment: Assessment: 1 acute symptomatic anemia secondary to blood loss secondary to large abdominal wall hematoma most likely related to anticoagulation therapy/eliquis. Recovered. 2 acute hypotension associated with bradycardia, and associated with blood loss , improving with blood transfusion. Recovered. 3 acute kidney injury, multifactorial likely related to hypotension/acute tubular necrosis although medication-induced kidney injury is not entirely ruled out. Current INR 0.96. 4 electrolytes imbalance including hyponatremia and hypokalemia as well as hypomagnesemia, likely diuretics induced. Recovered. Sodium 130. Potassium 3.9. 5 suspect some component of congestive heart failure likely diastolic in nature with left-sided pleural effusion, presently small, no need for thoracentesis at this point 6 acute urinary tract infection, being addressed by infectious disease on the case. 7 recent ischemic infarct noted on recent MRI. 8 carotid artery stenosis 9 type 2 diabetes 10 underlying COPD 11 Parkinson's disease 12 hypothyroidism 13 degenerative joint disease 14 ulcerative colitis and irritable bowel syndrome 15 recurrent episodes of urinary tract infections. Plan: The patient is seen and evaluated by Dr. Enriquez. She is currently stable from the pulmonary standpoint. Maintaining O2 saturations in the 90s on room air. She did have significant bowel movements and is no longer constipated. The plan is to transfer to an ECF for further care. I, the cosigning physician, performed a history & physical examination of the patient. Lungs sounds are clear but diminished. Maintaining good O2 saturations in the 90s on room air. I discussed the assessment and plan of care with my nurse practitioner, Jen Brush. I attest to the above note as dictated by her.
[2018-11-01] MEDS: CALCIUM CARB-VIT D 500MG-200UN 1 EACH TAB PO SCH (16:22)
[2018-11-01 16:29] VITALS: BP 135/69; PULSE 85; TEMP 97
--- NOTE | 2018-11-01 16:48 | P.DS ---
Providers Date of admission: 10/24/18 17:42 Attending physician: Fern Plascencia Consults: 10/25/18 12:24 Consult Physician Routine Consulting Provider: Raquel Cotto Consult Reason/Comments: Colitis, sepsis Do you want consulting provider notified?: Yes 10/26/18 12:58 Consult Physician Routine Consulting Provider: Kaleb Mckeon Consult Reason/Comments: ICU management Do you want consulting provider notified?: Yes 10/26/18 13:00 Consult Physician Urgent Consulting Provider: Kal Goncalves Consult Reason/Comments: enlarging hematoma Do you want consulting provider notified?: Yes 10/26/18 13:15 Consult Physician Urgent Consulting Provider: Danny Hernandez Consult Reason/Comments: periods of postural hypotension and bradycardia, CHF. bleeding on eliquis Do you want consulting provider notified?: Yes Primary care physician: [facility] Course: Dx: acute delirium Abdominal pain, mostly related to proctocolitis. abdominal wall hematoma, measuring 8.7 x 5.1 x 4.7 centimeters. resolving Acute a drop in hemoglobin with blood loss anemia. Acute kidney injury with hyperkalemia, resolved Urinary tract infection Possible cirrhosis of the liver with portal hypertension History of congestive heart failure History of atrial fibrillation, rate control. Not on anticoagulation History of GERD Hyperlipidemia Essential hypertension History of hypothyroidism Diabetes mellitus, type II Diabetic neuropathy History of sarcoidosis History of multiple drug ALLERGIES Patient is legally blind History of ulcerative colitis History of frequent falls Hospital course This is a pleasant 72 years old female with past medical history of congestive, atrial fibrillation, GERD, hyperlipidemia, hypertension, hypothyroidism, diabetes mellitus type 2, diabetic neuropathy, sarcoidosis, multiple drug ALLERGY, legally blind, ulcerative colitis, frequent falls. This time patient presents because of abdominal pain. Patient found to have infection and hematoma. Patient had hematoma in the right lower quadrant of the abdomen with a drop of hemoglobin from 10.9 down to 6.6 , associated with drop in her blood pressure and postural hypotension, patient at that point was transferred to the intensive care unit she was resuscitated with fluid and she got blood transfusion. After stabilization of the patient she was moved back to the medical general floor where she monitored for a few days, she kept improving slowly and steadily. Patient is fully awake and oriented currently. Blood pressure is stabilized and hemoglobin stabilized since then and upon discharge was 8.8. She still have some resolving hematoma in the right lower quadrant and some tenderness but is improving.Vital showing temperature 90.7 degrees, heart rate 85, breathing rate 18, blood pressure 135/69. She had evidence of acute kidney injury, with creatinine up to 2.0, coming down with her station to within acceptable normal range at 0.9. Also patient found to have several infections including proctocolitis on CAT scan of the abdomen although the patient did not have diarrhea but mainly constipation which was treated symptomatically and patient relieved. Also patient found to have Pseudomonas, and Proteus in her urine culture. Patient has been treated with Flagyl and aztreonam because of her multiple ALLERGIES. Patient showed significant improvement in her symptoms and no more abdominal pain. Her urine is stabilized. Patient can be discharged on 3 more days of aztreonam while she has PICC line, we recommend discontinue the PICC line after finishing her IV antibiotics. she had pulmonary vascular congestion, thoracocentesis was considered for fluid in her lungs, but that was not done however she was treated conservatively with diuretics only. she will be able to be discharged on Lasix also for fluid overload, and needs to be closely monitored regarding her fluid status, if she needs more Lasix scan be given under the supervision of the physician , However monitor blood pressure, kidney function and electrolytes including potassium and sodium. Over the last 2 days her hyponatremia of 128, that corrected up to 132 to 130. so patient was placed on fluid restriction at 1.5 L per day, with a recommendation to monitor sodium level.patient was no cord while in hospital. As per patient and family they don 't want Eliquis, although it was recommended by [facility] of women resume it. Patient and family wishes are inspected and she will be discharged on aspirin as stated. Discussed medication with cardiology team, patient can resume her amiodarone upon discharge. Patient was cleared by all consultants were seen her including pulmonary, cardiology, infectious disease for discharge Patient was found stable and can be discharged back to her ECF, in guarded prognosis. However she needs follow-up as an outpatient Gen: patient is a AAOx3, no distress CVS: S1-S2, RRR, no murmur Lungs: B/L CTA, no wheezing Abdomen: soft, no distention, no tenderness, positive bowel sounds. Right lower quadrant hematoma, resolving Extremity: no leg edema or induration Time spent more than 35 minutes Patient Condition at Discharge: Stable Plan - Discharge Summary Discharge Rx Participant: No New Discharge Prescriptions: New Aztreonam [Azactam] 1 gm IVPB Q12H #6 bag Furosemide [Lasix] 20 mg PO BID #60 tab RX: Lactulose [Cephulac] 20 gm PO BID PRN ml PRN Reason: Constipation RX: Aspirin 81 mg PO DAILY #30 chewable RX: Amiodarone [Cordarone] 200 mg PO DAILY #30 tab Continue RX: Carbidopa-Levodopa 25-100 mg [Sinemet 25-100 mg] 1 tab PO TID RX: Multivitamins, Thera [Multivitamin (formulary)] 1 tab PO DAILY@1700 RX: Levothyroxine Sodium 137 mcg PO DAILY@0600 RX: Primidone [Mysoline] 50 mg PO DAILY RX: Venlafaxine HCl ER [Effexor XR] 75 mg PO DAILY RX: Thiamine HCl [Vitamin B-1] 100 mg PO DAILY@1700 RX: Lansoprazole 30 mg PO DAILY@0600 RX: Ergocalciferol [Vitamin D2 (DRISDOL)] 50,000 unit PO ROSA RX: Ferrous Sulfate [Iron] 325 mg PO BID@0800,1700 RX: Docusate [Colace] 100 mg PO BID PRN PRN Reason: Constipation RX: Vit C/E/Zn/Coppr/Lutein/Zeaxan [Preservision Areds 2 Softgel] 1 tab PO DAILY RX: Fluticasone/Salmeterol [Advair 500-50 Diskus] 1 inhalation PO RT-BID RX: Atorvastatin Calcium [Lipitor] 10 mg PO HS@2100 RX: Calcium Carb/Vitamin D3/Vit K1 [Citracal Soft Chew] 1 tab PO DAILY@1700 RX: Tolterodine Tartrate [Detrol LA] 4 mg PO HS@2100 RX: INSULIN LISPRO (HumaLOG) [humaLOG] See Protocol SQ HS RX: Folic Acid 1 mg PO DAILY@1700 RX: Magnesium Hydroxide [Milk of Magnesia] 2,400 mg PO DAILY PRN PRN Reason: Constipation RX: Tetrahydrozoline 0.05% Ophth [Visine Eye Drops] 1 drops BOTH EYES TID PRN ml PRN Reason: Eye Irritation RX: Acetaminophen Tab [Tylenol] 650 mg PO Q6HR PRN tab PRN Reason: Mild Pain Or Fever > 100.5 RX: Melatonin 1 mg PO HS PRN PRN Reason: Insomnia RX: Ipratropium-Albuterol Nebulize [Duoneb 0.5 mg-3 mg/3 ml Soln] 3 ml INHALATION RT-QID PRN PRN Reason: Shortness Of Breath Or Wheezing RX: INSULIN LISPRO (HumaLOG) [humaLOG] See Protocol SQ AC-TID RX: Lactose-Reduced Food [Ensure Plus] 240 ml PO TID@0800,1700,2100 RX: Ipratropium-Albuterol Nebulize [Duoneb 0.5 mg-3 mg/3 ml Soln] 3 ml INHALATION RT-BID RX: traZODone HCL 50 mg PO HS RX: Magnesium Oxide [Mag-Ox] 400 mg PO DAILY RX: Insulin Detemir (Levemir) [Levemir] 5 unit SQ QAM RX: Ammonium Lactate Lotion [Lac-Hydrin 12% Lotion] 1 applic TOPICAL DAILY RX: Teriparatide [Forteo] 20 mcg SQ DAILY RX: Metoprolol Tartrate [Lopressor] 25 mg PO BID #0 tab Discontinued RX: Levocetirizine Dihydrochloride [Xyzal] 5 mg PO HS RX: Amiodarone HCl [Pacerone] 200 mg PO DAILY RX: Bisacodyl [Dulcolax] 10 mg RECTAL DAILY PRN PRN Reason: Constipation RX: amLODIPine [Norvasc] 5 mg PO DAILY tab Na Phos,M-B/Na Phos,Di-Ba [Fleet Adult] 133 ml RECTAL DAILY PRN PRN Reason: Constipation Menthol [Biofreeze] 1 applic TOPICAL QID PRN PRN Reason: Pain RX: Apixaban [Eliquis] 5 mg PO BID@0800,1700 Potassium Chloride [Klor-Con 20] 20 meq PO DAILY Furosemide [Lasix] 80 mg PO DAILY Furosemide [Lasix] 40 mg PO DAILY@1400 Discharge Medication List RX: Carbidopa-Levodopa 25-100 mg [Sinemet 25-100 mg] 1 tab PO TID 01/15/16 [ History] RX: Levothyroxine Sodium 137 mcg PO DAILY@0600 04/28/18 [History] RX: Multivitamins, Thera [Multivitamin (formulary)] 1 tab PO DAILY@1700 [History] RX: Atorvastatin Calcium [Lipitor] 10 mg PO HS@2100 08/09/18 [History] RX: Calcium Carb/Vitamin D3/Vit K1 [Citracal Soft Chew] 1 tab PO DAILY@1700 [History] RX: Docusate [Colace] 100 mg PO BID PRN 08/09/18 [History] RX: Ergocalciferol [Vitamin D2 (DRISDOL)] 50,000 unit PO ROSA 08/09/18 [History] RX: Ferrous Sulfate [Iron] 325 mg PO BID@0800,1700 08/09/18 [History] RX: Fluticasone/Salmeterol [Advair 500-50 Diskus] 1 inhalation PO RT-BID [History] RX: Lansoprazole 30 mg PO DAILY@0600 08/09/18 [History] RX: Primidone [Mysoline] 50 mg PO DAILY 08/09/18 [History] RX: Thiamine HCl [Vitamin B-1] 100 mg PO DAILY@1700 08/09/18 [History] RX: Tolterodine Tartrate [Detrol LA] 4 mg PO HS@2100 08/09/18 [History] RX: Venlafaxine HCl ER [Effexor XR] 75 mg PO DAILY 08/09/18 [History] RX: Vit C/E/Zn/Coppr/Lutein/Zeaxan [Preservision Areds 2 Softgel] 1 tab PO DAILY 08/09/18 [History] RX: Folic Acid 1 mg PO DAILY@1700 09/12/18 [History] RX: INSULIN LISPRO (HumaLOG) [humaLOG] See Protocol SQ HS 09/12/18 [History] RX: Magnesium Hydroxide [Milk of Magnesia] 2,400 mg PO DAILY PRN 09/12/18 [ History] RX: Acetaminophen Tab [Tylenol] 650 mg PO Q6HR PRN tab 09/23/18 [Rx] RX: Tetrahydrozoline 0.05% Ophth [Visine Eye Drops] 1 drops BOTH EYES TID PRN ml 09/23/18 [Rx] RX: Ammonium Lactate Lotion [Lac-Hydrin 12% Lotion] 1 applic TOPICAL DAILY 10/24 [History] RX: INSULIN LISPRO (HumaLOG) [humaLOG] See Protocol SQ AC-TID 10/24/18 [History] RX: Insulin Detemir (Levemir) [Levemir] 5 unit SQ QAM 10/24/18 [History] RX: Ipratropium-Albuterol Nebulize [Duoneb 0.5 mg-3 mg/3 ml Soln] 3 ml INHALATION RT-BID 10/24/18 [History] RX: Ipratropium-Albuterol Nebulize [Duoneb 0.5 mg-3 mg/3 ml Soln] 3 ml INHALATION RT-QID PRN 10/24/18 [History] RX: Lactose-Reduced Food [Ensure Plus] 240 ml PO TID@0800,1700,2100 10/24/18 [ History] RX: Magnesium Oxide [Mag-Ox] 400 mg PO DAILY 10/24/18 [History] RX: Melatonin 1 mg PO HS PRN 10/24/18 [History] RX: Teriparatide [Forteo] 20 mcg SQ DAILY 10/24/18 [History] RX: traZODone HCL 50 mg PO HS 10/24/18 [History] Aztreonam [Azactam] 1 gm IVPB Q12H #6 bag 11/01/18 [Rx] Furosemide [Lasix] 20 mg PO BID #60 tab 11/01/18 [Rx] RX: Amiodarone [Cordarone] 200 mg PO DAILY #30 tab 11/01/18 [Rx] RX: Aspirin 81 mg PO DAILY #30 chewable 11/01/18 [Rx] RX: Lactulose [Cephulac] 20 gm PO BID PRN ml 11/01/18 [Rx] RX: Metoprolol Tartrate [Lopressor] 25 mg PO BID #0 tab 11/01/18 [Rx] Follow up Appointment(s)/Referral(s): Danny Hernandez MD [STAFF PHYSICIAN] - 11/09/18 9:15 am (Wednesday) Naresh Morales DO [Primary Care Provider] - 1-2 days Dmitriy Montgomery MD [STAFF PHYSICIAN] - 2 Weeks (Follow up in regards to catheter office will call with appointment) Activity/Diet/Wound Care/Special Instructions: Smith catheter to be changed monthly. please put the patient on fluid restriction at one liter and a half per day ( 1.5 L/d) .. and monitor sodium level closely cardiac diet activity is limited till you see your doctor we recommend to recheck her thyroid function test (TSH and T4) please keep using the picc line for aztreonam for the 3 days after that discontinue the picc line Discharge Disposition: TRANSFER TO SNF/ECF
[2018-11-01 17:04] LABS: Glucose,Whole Blood 94 mg/dL (75-99)
== END 2018-11-01 18:46 | DRG 698 ==
LOC: EC 13:18 → 3NMEDONC 17:42 → 2SICU 10-26 13:09 → 3SCARD 10-29 14:19
PROVIDERS: ADMIT Internal Medicine; ATTEND Internal Medicine
PROC: 30243N1 Transfusion of Nonautologous Red Blood Cells into Central Vein, Percutaneous Approach (ICD-10-PCS; principal; 2018-10-26)
DX: T83.511A Infection and inflammatory reaction due to indwelling urethral catheter, initial encounter (principal); G93.41 Metabolic encephalopathy; N17.0 Acute kidney failure with tubular necrosis; A41.9 Sepsis, unspecified organism; J18.9 Pneumonia, unspecified organism; I48.1 Persistent atrial fibrillation; K51.30 Ulcerative (chronic) rectosigmoiditis without complications; K76.6 Portal hypertension; D62 Acute posthemorrhagic anemia; E87.1 Hypo-osmolality and hyponatremia; I50.32 Chronic diastolic (congestive) heart failure; I13.0 Hypertensive heart and chronic kidney disease with heart failure and stage 1 through stage 4 chronic kidney disease, or unspecified chronic kidney disease; J98.11 Atelectasis; J44.0 Chronic obstructive pulmonary disease with (acute) lower respiratory infection; N39.0 Urinary tract infection, site not specified; Z66 Do not resuscitate; E11.40 Type 2 diabetes mellitus with diabetic neuropathy, unspecified; E11.22 Type 2 diabetes mellitus with diabetic chronic kidney disease; E88.81 Metabolic syndrome and other insulin resistance; G20 Parkinson's disease; E87.5 Hyperkalemia; E86.9 Volume depletion, unspecified; D69.6 Thrombocytopenia, unspecified; E83.42 Hypomagnesemia; B96.4 Proteus (mirabilis) (morganii) as the cause of diseases classified elsewhere; B96.5 Pseudomonas (aeruginosa) (mallei) (pseudomallei) as the cause of diseases classified elsewhere; K75.81 Nonalcoholic steatohepatitis (NASH); I69.998 Other sequelae following unspecified cerebrovascular disease; K74.60 Unspecified cirrhosis of liver; D50.0 Iron deficiency anemia secondary to blood loss (chronic); I65.23 Occlusion and stenosis of bilateral carotid arteries; R00.1 Bradycardia, unspecified; S30.1XXA Contusion of abdominal wall, initial encounter; N18.9 Chronic kidney disease, unspecified; K56.41 Fecal impaction; I95.1 Orthostatic hypotension; E03.9 Hypothyroidism, unspecified; E78.5 Hyperlipidemia, unspecified; K21.9 Gastro-esophageal reflux disease without esophagitis; D86.0 Sarcoidosis of lung; T50.2X5A Adverse effect of carbonic-anhydrase inhibitors, benzothiadiazides and other diuretics, initial encounter; H54.62 Unqualified visual loss, left eye, normal vision right eye; H35.30 Unspecified macular degeneration; R40.2362 Coma scale, best motor response, obeys commands, at arrival to emergency department; R40.2142 Coma scale, eyes open, spontaneous, at arrival to emergency department; R40.2252 Coma scale, best verbal response, oriented, at arrival to emergency department; R26.9 Unspecified abnormalities of gait and mobility; R29.6 Repeated falls; M19.90 Unspecified osteoarthritis, unspecified site; F41.9 Anxiety disorder, unspecified; Z79.01 Long term (current) use of anticoagulants; Z79.890 Hormone replacement therapy; Z79.4 Long term (current) use of insulin; Z79.51 Long term (current) use of inhaled steroids; Z79.899 Other long term (current) drug therapy; Z86.19 Personal history of other infectious and parasitic diseases; Z87.81 Personal history of (healed) traumatic fracture; Z90.49 Acquired absence of other specified parts of digestive tract; Z98.891 History of uterine scar from previous surgery; Z90.710 Acquired absence of both cervix and uterus; Z85.819 Personal history of malignant neoplasm of unspecified site of lip, oral cavity, and pharynx; Z91.81 History of falling; Z87.440 Personal history of urinary (tract) infections; Z98.42 Cataract extraction status, left eye; Z98.41 Cataract extraction status, right eye; Z96.1 Presence of intraocular lens; Z88.1 Allergy status to other antibiotic agents; Z88.5 Allergy status to narcotic agent; Z88.0 Allergy status to penicillin; Z88.2 Allergy status to sulfonamides; Z88.8 Allergy status to other drugs, medicaments and biological substances; Y84.6 Urinary catheterization as the cause of abnormal reaction of the patient, or of later complication, without mention of misadventure at the time of the procedure; Y92.129 Unspecified place in nursing home as the place of occurrence of the external cause; Z80.1 Family history of malignant neoplasm of trachea, bronchus and lung; Z80.42 Family history of malignant neoplasm of prostate; Z81.2 Family history of tobacco abuse and dependence
CPT/HCPCS: 36415; 71045; 74018; 74176; 74177; 76604; 80048; 80053; 81001; 82150; 83605; 83690; 83735; 83880; 84439; 84443; 85025; 85027; 86850; 86900; 86901; 86920; 87040; 87077; 87086; 87186; 93005; 94640; 94760; 96374; 99285

== ENCOUNTER 2019-04-04 13:44 | Inpatient (IN) | payer MEDICARE, BC, OTHER ==
--- NOTE | 2019-04-04 14:50 | XR ---
EXAMINATION TYPE: XR chest 2V DATE OF EXAM: 04/04/2019 COMPARISON: Prior chest x-ray 10/31/2018 HISTORY: Dysrhythmia, atrial fibrillation TECHNIQUE: Frontal and lateral views of the chest are obtained. FINDINGS: There is some improvement in aeration, lung volume as compared to prior exam. Some residua l perihilar patchy increased density is noted, there is evidence of old granulomatous disease. No errol dent pneumothorax. There is some blunting of the left costophrenic angle. Heart size is enlarged. The re are overlying cardiac leads. Aorta is dense. Arthropathy noted in the shoulders. Possible mitral a nnular calcification. Prominent lung volume may be indicative of underlying COPD. IMPRESSION: There is some improvement in aeration. There are chronic changes including cardiomegaly, difficult to exclude pleural effusion with basilar atelectasis versus pneumonia. There may be atelec tasis or central scarring, short interval follow-up suggested
[2019-04-04 14:51] LABS: ALT <6 U/L (9-52); AST 60 U/L (14-36); African American GFR (CKD) 90 (>60 ml/min/1.73 sqM); Albumin 4.2 g/dL (3.5-5.0); Alkaline Phosphatase 90 U/L (38-126); Anion Gap 10 mmol/L; Blood Urea Nitrogen 44 mg/dL (7-17); Calcium 9.8 mg/dL (8.4-10.2); Carbon Dioxide 27 mmol/L (22-30); Chloride 96 mmol/L (98-107); Glucose 63 mg/dL (74-99); INR 1.1 (<1.2); Magnesium 1.8 mg/dL (1.6-2.3); Partial Thromboplastin Time 22.5 sec (22.0-30.0); Prothrombin Time 11.5 sec (9.0-12.0); Sodium 133 mmol/L (137-145); Total Bilirubin 1.2 mg/dL (0.2-1.3); Total Protein 7.6 g/dL (6.3-8.2)
[2019-04-04 14:52] LABS: Potassium 5.3 mmol/L (3.5-5.1)
[2019-04-04 15:03] LABS: Basophils % (A) 0 %; Eosinophils # (A) 0.2 k/uL (0-0.7); Eosinophils % (A) 2 %; HCT 36.7 % (34.0-46.0); HGB 12.4 gm/dL (11.4-16.0); Lymphocytes # (A) 0.8 k/uL (1.0-4.8); Lymphocytes % (A) 8 %; MCH 33.9 pg (25.0-35.0); MCHC 33.8 g/dL (31.0-37.0); MCV 100.4 fL (80.0-100.0); Macrocytosis Slight; Monocytes # (A) 0.7 k/uL (0-1.0); Monocytes % (A) 7 %; Neutrophils # (A) 8.6 k/uL (1.3-7.7); Neutrophils % (A) 81 %; RBC 3.66 m/uL (3.80-5.40); RDW 13.8 % (11.5-15.5); WBC 10.6 k/uL (3.8-10.6)
[2019-04-04 15:08] LABS: Platelet Count 171 k/uL (150-450)
[2019-04-04] MEDS: DILTIAZEM 125 MG in SODIUM CHLORIDE 0.9% 100 ML IV SCH (15:21)
--- NOTE | 2019-04-04 15:21 | ED ---
Arrhythmia/Palpitations HPI <KavehMickey - Last Filed: 04/04/19 16:29> - General Source: patient, EMS, RN notes reviewed Mode of arrival: EMS Limitations: no limitations <Gab Martins - Last Filed: 04/04/19 16:51> - General Chief Complaint: Arrhythmia/Palpitations Stated Complaint: A fib Time Seen by Provider: 04/04/19 13:55 - History of Present Illness Initial Comments: This a 74-year-old female presents emergency Department from [facility] for evaluation of A. fib RVR. Patient has chronic history of A. fib currently taking metoprolol. Patient is not on any anticoagulant secondary to history of intra-abdominal bleeding with hematoma. Patient reports no chest pain or shortness breath no headache or dizziness. She states she does feel weak. Patient denies any nausea vomiting. Patient was noted of the elevated heart rate today and this is what prompted EKG to be performed. (Gab Martins) - Related Data Home Medications Medication Instructions Recorded Confirmed Carbidopa-Levodopa 25-100 mg 1 tab PO TID 01/15/16 04/04/19 [Sinemet 25-100 mg] Multivitamins, Thera [Multivitamin 1 tab PO DAILY 04/28/18 04/04/19 (formulary)] Atorvastatin Calcium [Lipitor] 10 mg PO HS@2100 08/09/18 04/04/19 Docusate [Colace] 100 mg PO BID 08/09/18 04/04/19 Ergocalciferol [Vitamin D2 50,000 unit PO ROSA 08/09/18 04/04/19 (DRISDOL)] Ferrous Sulfate [Iron] 325 mg PO DAILY 08/09/18 04/04/19 Fluticasone/Salmeterol [Advair 1 puff PO RT-BID 08/09/18 04/04/19 500-50 Diskus] Thiamine HCl [Vitamin B-1] 100 mg PO DAILY@1200 08/09/18 04/04/19 Tolterodine Tartrate [Detrol LA] 4 mg PO HS@2100 08/09/18 04/04/19 Venlafaxine HCl ER [Effexor XR] 75 mg PO DAILY 08/09/18 04/04/19 Vit C/E/Zn/Coppr/Lutein/Zeaxan 1 tab PO DAILY@1700 08/09/18 04/04/19 [Preservision Areds 2 Softgel] Magnesium Hydroxide [Milk of 2,400 mg PO DAILY PRN 09/12/18 04/04/19 Magnesia] Ammonium Lactate Lotion 1 applic TOPICAL DAILY@1500 10/24/18 04/04/19 [Lac-Hydrin 12% Lotion] Insulin Detemir (Levemir) [Levemir] 14 unit SQ QAM 10/24/18 04/04/19 Ipratropium-Albuterol Nebulize 3 ml INHALATION RT-QID PRN 10/24/18 04/04/19 [Duoneb 0.5 mg-3 mg/3 ml Soln] Magnesium Oxide [Mag-Ox] 400 mg PO BID 10/24/18 04/04/19 Melatonin 1 mg PO HS PRN 10/24/18 04/04/19 Teriparatide [Forteo] 20 mcg SQ DAILY 10/24/18 04/04/19 traZODone HCL 50 mg PO HS 10/24/18 04/04/19 Acetaminophen Tab [Tylenol Tab] 1,000 mg PO Q6HR PRN 04/04/19 04/04/19 Ascorbic Acid [Vitamin C] 500 mg PO DAILY 04/04/19 04/04/19 Aspirin 81 mg PO DAILY@1700 04/04/19 04/04/19 Bisacodyl 10 mg RECTAL DAILY PRN 04/04/19 04/04/19 Calcium Carbonate/Vitamin D3 1 tab PO DAILY 04/04/19 04/04/19 [Caltrate 600 Plus D3 Tablet] Famotidine [Pepcid] 20 mg PO DAILY 04/04/19 04/04/19 INSULIN ASPART (NovoLOG) [NovoLOG 9 unit SQ TID-W/MEALS 04/04/19 04/04/19 (formulary)] INSULIN ASPART (NovoLOG) [NovoLOG See Protocol SQ ACHS 04/04/19 04/04/19 (formulary)] Levocetirizine Dihydrochloride 5 mg PO DAILY 04/04/19 04/04/19 [Xyzal] Levothyroxine Sodium 125 mcg PO DAILY 04/04/19 04/04/19 Loperamide [Imodium] 2 mg PO DAILY PRN 04/04/19 04/04/19 Mag Hydrox/Al Hydrox/Simeth 15 ml PO Q6H PRN 04/04/19 04/04/19 [Maalox] Metoprolol Tartrate [Lopressor] 50 mg PO BID 04/04/19 04/04/19 diphenhydrAMINE HCL [Benadryl] 25 mg PO Q6H PRN 04/04/19 04/04/19 guaiFENesin [guaiFENesin Oral 200 mg PO Q4H PRN 04/04/19 04/04/19 Solution] Previous Rx's Medication Instructions Recorded Tetrahydrozoline 0.05% Ophth 1 drops BOTH EYES TID PRN ml 09/23/18 [Visine Eye Drops] Furosemide [Lasix] 20 mg PO BID #60 tab 11/01/18 Lactulose [Cephulac] 20 gm PO BID PRN ml 11/01/18 Allergies Allergy/AdvReac Type Severity Reaction Status Date / Time cefdinir Allergy Severe Swelling Verified 04/04/19 14:13 Cephalosporins Allergy Unknown Verified 04/04/19 14:13 codeine Allergy Unknown Verified 04/04/19 14:13 doxycycline Allergy Nausea & Verified 04/04/19 14:13 Vomiting erythromycin base Allergy Nausea & Verified 04/04/19 14:13 Vomiting & Diarrhea/RASH Penicillins Allergy Rash/Hives Verified 04/04/19 14:13 trimethoprim [From Bactrim] Allergy Unknown Verified 04/04/19 14:13 azithromycin AdvReac Nausea & Verified 04/04/19 14:13 Vomiting hydrochlorothiazide AdvReac Nausea & Verified 04/04/19 14:13 [From Dyazide] Vomiting levofloxacin [From Levaquin] AdvReac Abdominal Verified 04/04/19 14:13 Pain moxifloxacin HCl AdvReac Unknown Verified 04/04/19 14:13 [From Avelox] sulfamethoxazole AdvReac Nausea & Verified 04/04/19 14:13 [From Bactrim] Vomiting & Diarrhea triamterene [From Dyazide] AdvReac Nausea & Verified 04/04/19 14:13 Vomiting Review of Systems ROS Other: All systems not noted in ROS Statement are negative. <Mickey Linn - Last Filed: 04/04/19 16:29> ROS Other: All systems not noted in ROS Statement are negative. <Gab Martins - Last Filed: 04/04/19 16:51> ROS Statement: Those systems with pertinent positive or pertinent negative responses have been documented in the HPI. 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, multiple drug allergies - some reactions severe, parkinsons, short term memory problems at times, L eye ocular stroke-legally blind, macular degeneration bilaterally, hypothyroid, DJD, DDD, several past fractures d/t falls, frequent falls, gait dysfunction, IBS, ulcerative colitis, acute renal failure, UTIs, 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incont of urien -has idc that was changed in er 10-24-18 History of Any Multi-Drug Resistant Organisms: VRE Date of last positivie culture/infection: 08/18/13 [facility] MDRO Source:: Urine Past Surgical History: Appendectomy, Breast Surgery, Section, Cholecystectomy, Hysterectomy, Orthopedic Surgery Additional Past Surgical History / Comment(s): Debridements R lower leg, L side tongue benign lesion, 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, R shoulder fracture with surgical repair, L elbow ORIF hardware since removed, L hand fracture with surg ical repair, bilateral breast benign bxs and reductions, D&C, EGD, colonoscopies, hemorrhoidectomy, bilateral cataract removals with lens implants.picc line"told it's not accessible" Past Anesthesia/Blood Transfusion Reactions: No Reported Reaction Additional Past Anesthesia/Blood Transfusion Reaction / Comment(s): CLAUSTERPHOBIA Past Psychological History: Anxiety Smoking Status: Never smoker Past Alcohol Use History: None Reported Past Drug Use History: None Reported - Past Family History Father Family Medical History: Cancer, Prostate Disorder Additional Family Medical History / Comment(s): PROSTATE CA, HERNIA SX BACK SX Mother Family Medical History: Cancer Additional Family Medical History / Comment(s): Mother is . Mother had lung cancer. She was a smoker. <Gab Martins M - Last Filed: 04/04/19 16:51> General Exam Limitations: no limitations General appearance: alert, in no apparent distress Head exam: Present: atraumatic, normocephalic, normal inspection Eye exam: Present: normal appearance, PERRL, EOMI. Absent: scleral icterus, conjunctival injection, periorbital swelling ENT exam: Present: normal exam, normal oropharynx, mucous membranes moist Neck exam: Present: normal inspection, full ROM. Absent: tenderness, meningismus, lymphadenopathy Respiratory exam: Present: normal lung sounds bilaterally. Absent: respiratory distress, wheezes, rales, rhonchi, stridor Cardiovascular Exam: Present: tachycardia (Heart rate between 108 and 160), normal heart sounds. Absent: regular rate, normal rhythm, systolic murmur, diastolic murmur, rubs, gallop, clicks Neurological exam: Present: alert, oriented X3, CN II-XII intact Skin exam: Present: warm, dry, intact, normal color. Absent: rash <Gab Martins - Last Filed: 04/04/19 16:51> Course <Mickey Linn - Last Filed: 04/04/19 16:29> Vital Signs 04/04/19 04/04/19 04/04/19 13:52 15:31 15:58 Temperature 98.2 F Pulse Rate 115 H 75 154 H Respiratory 17 17 17 Rate Blood Pressure 96/74 134/106 103/58 O2 Sat by Pulse 95 96 95 Oximetry - Reevaluation(s) Reevaluation #1: 04/04/19 16:30 PA supervision: I proceeded [id number] evaluation the patient did discuss Pfizer her and her family. Acid discuss a history of Dr. Ryan. Patient will be admitted for treatment of A. fib with RVR. (Mickey Linn) EKG Findings - EKG Comments: EKG Findings:: EKG performed at 1400 A. fib with RVR rate of 1:15 QRS 124 QT/QTC 302/417 <Gab Martins - Last Filed: 04/04/19 16:51> Medical Decision Making - Lab Data Result diagrams: 04/04/19 14:29 04/04/19 14:29 <Mickey Linn - Last Filed: 04/04/19 16:29> - Lab Data Result diagrams: 04/04/19 14:29 04/04/19 14:29 <Gab Martins - Last Filed: 04/04/19 16:51> - Medical Decision Making Patient will be admitted for rate control for A. fib. (Gab Martins) - Lab Data Lab Results 04/04/19 04/04/19 04/04/19 Range/Units 14:29 14:29 14:29 WBC 10.6 (3.8-10.6) k/uL RBC 3.66 L (3.80-5.40) m/uL Hgb 12.4 (11.4-16.0) gm/dL Hct 36.7 (34.0-46.0) % MCV 100.4 H (80.0-100.0) fL MCH 33.9 (25.0-35.0) pg MCHC 33.8 (31.0-37.0) g/dL RDW 13.8 (11.5-15.5) % Plt Count 171 D (150-450) k/uL Neutrophils % 81 % Lymphocytes % 8 % Monocytes % 7 % Eosinophils % 2 % Basophils % 0 % Neutrophils # 8.6 H (1.3-7.7) k/uL Lymphocytes # 0.8 L (1.0-4.8) k/uL Monocytes # 0.7 (0-1.0) k/uL Eosinophils # 0.2 (0-0.7) k/uL Basophils # 0.0 (0-0.2) k/uL Macrocytosis Slight PT 11.5 (9.0-12.0) sec INR 1.1 (<1.2) APTT 22.5 (22.0-30.0) sec Sodium 133 L (137-145) mmol/L Potassium 5.3 H (3.5-5.1) mmol/L Chloride 96 L (98-107) mmol/L Carbon Dioxide 27 (22-30) mmol/L Anion Gap 10 mmol/L BUN 44 H (7-17) mg/dL Creatinine 0.75 (0.52-1.04) mg/dL Est GFR (CKD-EPI)AfAm 90 (>60 ml/min/1.73 sqM) Est GFR (CKD-EPI)NonAf 78 (>60 ml/min/1.73 sqM) Glucose 63 L (74-99) mg/dL POC Glucose (mg/dL) (75-99) mg/dL POC Glu Inspector Screen Printing ID Calcium 9.8 (8.4-10.2) mg/dL Magnesium 1.8 (1.6-2.3) mg/dL Total Bilirubin 1.2 (0.2-1.3) mg/dL AST 60 H (14-36) U/L ALT <6 L (9-52) U/L Alkaline Phosphatase 90 (38-126) U/L Troponin I (0.000-0.034) ng/mL Total Protein 7.6 (6.3-8.2) g/dL Albumin 4.2 (3.5-5.0) g/dL 04/04/19 04/04/19 04/04/19 Range/Units 14:29 15:16 15:55 WBC (3.8-10.6) k/uL RBC (3.80-5.40) m/uL Hgb (11.4-16.0) gm/dL Hct (34.0-46.0) % MCV (80.0-100.0) fL MCH (25.0-35.0) pg MCHC (31.0-37.0) g/dL RDW (11.5-15.5) % Plt Count (150-450) k/uL Neutrophils % % Lymphocytes % % Monocytes % % Eosinophils % % Basophils % % Neutrophils # (1.3-7.7) k/uL Lymphocytes # (1.0-4.8) k/uL Monocytes # (0-1.0) k/uL Eosinophils # (0-0.7) k/uL Basophils # (0-0.2) k/uL Macrocytosis PT (9.0-12.0) sec INR (<1.2) APTT (22.0-30.0) sec Sodium (137-145) mmol/L Potassium (3.5-5.1) mmol/L Chloride (98-107) mmol/L Carbon Dioxide (22-30) mmol/L Anion Gap mmol/L BUN (7-17) mg/dL Creatinine (0.52-1.04) mg/dL Est GFR (CKD-EPI)AfAm (>60 ml/min/1.73 sqM) Est GFR (CKD-EPI)NonAf (>60 ml/min/1.73 sqM) Glucose (74-99) mg/dL POC Glucose (mg/dL) 60 L 98 (75-99) mg/dL POC Glu Inspector Screen Printing ID Larry Taylor Kyle Calcium (8.4-10.2) mg/dL Magnesium (1.6-2.3) mg/dL Total Bilirubin (0.2-1.3) mg/dL AST (14-36) U/L ALT (9-52) U/L Alkaline Phosphatase (38-126) U/L Troponin I <0.012 (0.000-0.034) ng/mL Total Protein (6.3-8.2) g/dL Albumin (3.5-5.0) g/dL Critical Care Time Critical Care Time: Yes Total Critical Care Time: 35 <Gab Martins - Last Filed: 04/04/19 16:51> Critical Care Time: Total 35 minutes of critical care time were used to initially evaluated patient, reviewed past medical history, review medications from jail. Patient had elevated heart rate in which she has a history of A. fib EKG, labs, Cardizem were ordered. Patient was started on a drip of 5 mics per hour given her mild hypotension. Patient continued to have persistent tachycardia. Patient will be admitted for cardiology evaluation and rate control. (Gab Martins) Disposition <Mickey Linn - Last Filed: 04/04/19 16:29> <Gab Martins - Last Filed: 04/04/19 16:51> Clinical Impression: Atrial fibrillation with RVR Disposition: ADMITTED IP TO THIS HOSP Condition: Fair Referrals: Naresh Morales DO [Primary Care Provider] - 1-2 days
[2019-04-04 15:22] LABS: Glucose,Whole Blood 60 mg/dL (75-99)
[2019-04-04 15:56] LABS: Glucose,Whole Blood 98 mg/dL (75-99)
[2019-04-04] MEDS ORDERED: NALOXONE 0.4 MG/ML 1 ML VIAL IV PRN (16:51)
[2019-04-04 21:53] LABS: Glucose,Whole Blood 178 mg/dL (75-99)
[2019-04-04] MEDS ORDERED: LACTULOSE 20 GM/30 ML CUP PO PRN (23:38)
[2019-04-04] MEDS ORDERED: MAGNESIUM HYDROXIDE 2,400 MG/10 ML CUP PO PRN (23:38)
[2019-04-04] MEDS ORDERED: TETRAHYDROZOLINE 0.05% OPHTH DROPS 15 ML BTL BOTH EYES PRN (23:38)
[2019-04-04] MEDS ORDERED: ACETAMINOPHEN TAB 500 MG TAB PO PRN (23:38)
[2019-04-04] MEDS ORDERED: LOPERAMIDE 2 MG CAP PO PRN (23:38)
[2019-04-04] MEDS ORDERED: MAG HYDROX/AL HYDROX/SIMETH 30 ML CUP PO PRN (23:38)
[2019-04-04] MEDS ORDERED: MELATONIN 1 MG TAB PO PRN (23:38)
[2019-04-04] MEDS ORDERED: BISACODYL 10 MG SUPP RECTAL PRN (23:38)
[2019-04-05] MEDS: traZODone HCL 50 MG TAB PO SCH ×2 (01:17→21:56)
[2019-04-05] MEDS: CARBIDOPA-LEVODOPA 25-100 MG 1 EACH TAB PO SCH ×4 (01:18→22:00)
--- NOTE | 2019-04-05 01:51 | P.HPIM ---
History of Present Illness H&P Date: 04/04/19 Chief Complaint: A. fib with RVR Patient is a 74-year-old female with a known history of chronic atrial fibrillation currently not on anticoagulation due to intra-abdominal bleeding with hematoma and frequent falls, chronic CHF with diastolic dysfunction, hypertension, diabetes type 2 insulin-dependent, ICA stenosis and osteoporosis and other multiple medical problems currently staying at the extended care facility was brought to the hospital due to atrial fibrillation with rapid ventricular rate. Patient was found have rapid heart rate. Otherwise she denied any complaints of chest pain or shortness of breath. No headache or dizziness or lightheadedness. No increased leg swelling. Patient does have some weakness otherwise no nausea vomiting or abdominal pain or diarrhea. Denied any recent illnesses. EKG showed 133, potassium 5.3 with slight hemolysis, Chest x-ray showed there is some improvement in aeration. There are chronic changes including cardiomegaly, difficult to exclude pleural effusion with basilar atelectasis versus pneumonia. There may be atelectasis or central scarring, short interval follow-up suggested. Review of Systems Constitutional: Patient denies any fever or chills . Generalized weakness. Abdomen: Patient denied nausea vomiting and diarrhea and abdominal pain. Cardiovascular: Patient denies any chest pain or short of breath no palpitations. Respiratory: patient denied any cough is from production. No shortness of breath Neurologic: Patient denied any numbness or tingling headache. Musculoskeletal: Patient denies any complaints of joint swelling or deformity. Skin: Negative Psychiatric: Negative Endocrine: No heat or cold intolerance. No recent weight gain. Genitourinary: No dysuria or hematuria. 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, multiple drug allergies - some reactions severe, parkinsons, short term memory problems at times, L eye ocular stroke-legally blind, macular degeneration bilaterally, hypothyroid, DJD, DDD, several past fractures d/t falls, frequent falls, gait dysfunction, IBS, ulcerative colitis, acute renal fa ilure, UTIs, 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incont of urien -has idc that was changed in er 10-24-18 History of Any Multi-Drug Resistant Organisms: VRE Date of last positivie culture/infection: 08/18/13 [facility] MDRO Source:: Urine Past Surgical History: Appendectomy, Breast Surgery, Section, Cholecystectomy, Hysterectomy, Orthopedic Surgery Additional Past Surgical History / Comment(s): Debridements R lower leg, L side tongue benign lesion, 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, R shoulder fracture with surgical repair, L elbow ORIF hardware since removed, L hand fracture with surgical repair, bilateral breast benign bxs and reductions, D&C, EGD, colonoscopies, hemorrhoidectomy, bilateral cataract removals with lens implants.picc line"told it's not accessible" Past Anesthesia/Blood Transfusion Reactions: No Reported Reaction Additional Past Anesthesia/Blood Transfusion Reaction / Comment(s): CLAUSTERPHOBIA Smoking Status: Never smoker - Past Family History Father Family Medical History: Cancer, Prostate Disorder Additional Family Medical History / Comment(s): PROSTATE CA, HERNIA SX BACK SX Mother Family Medical History: Cancer Additional Family Medical History / Comment(s): Mother is . Mother had lung cancer. She was a smoker. Medications and Allergies Home Medications Medication Instructions Recorded Confirmed Type Carbidopa-Levodopa 25-100 mg 1 tab PO TID 01/15/16 04/04/19 History [Sinemet 25-100 mg] Multivitamins, Thera [Multivitamin 1 tab PO DAILY 04/28/18 04/04/19 History (formulary)] Atorvastatin Calcium [Lipitor] 10 mg PO HS@2100 08/09/18 04/04/19 History Docusate [Colace] 100 mg PO BID 08/09/18 04/04/19 History Ergocalciferol [Vitamin D2 50,000 unit PO ROSA 08/09/18 04/04/19 History (DRISDOL)] Ferrous Sulfate [Iron] 325 mg PO DAILY 08/09/18 04/04/19 History Fluticasone/Salmeterol [Advair 1 puff PO RT-BID 08/09/18 04/04/19 History 500-50 Diskus] Thiamine HCl [Vitamin B-1] 100 mg PO DAILY@1200 08/09/18 04/04/19 History Tolterodine Tartrate [Detrol LA] 4 mg PO HS@2100 08/09/18 04/04/19 History Venlafaxine HCl ER [Effexor XR] 75 mg PO DAILY 08/09/18 04/04/19 History Vit C/E/Zn/Coppr/Lutein/Zeaxan 1 tab PO DAILY@1700 08/09/18 04/04/19 History [Preservision Areds 2 Softgel] Magnesium Hydroxide [Milk of 2,400 mg PO DAILY PRN 09/12/18 04/04/19 History Magnesia] Tetrahydrozoline 0.05% Ophth 1 drops BOTH EYES TID PRN ml 09/23/18 04/04/19 Rx [Visine Eye Drops] Ammonium Lactate Lotion 1 applic TOPICAL DAILY@1500 10/24/18 04/04/19 History [Lac-Hydrin 12% Lotion] Insulin Detemir (Levemir) [Levemir] 14 unit SQ QAM 10/24/18 04/04/19 History Ipratropium-Albuterol Nebulize 3 ml INHALATION RT-QID PRN 10/24/18 04/04/19 History [Duoneb 0.5 mg-3 mg/3 ml Soln] Magnesium Oxide [Mag-Ox] 400 mg PO BID 10/24/18 04/04/19 History Melatonin 1 mg PO HS PRN 10/24/18 04/04/19 History Teriparatide [Forteo] 20 mcg SQ DAILY 10/24/18 04/04/19 History traZODone HCL 50 mg PO HS 10/24/18 04/04/19 History Furosemide [Lasix] 20 mg PO BID #60 tab 11/01/18 04/04/19 Rx Lactulose [Cephulac] 20 gm PO BID PRN ml 11/01/18 04/04/19 Rx Acetaminophen Tab [Tylenol Tab] 1,000 mg PO Q6HR PRN 04/04/19 04/04/19 History Ascorbic Acid [Vitamin C] 500 mg PO DAILY 04/04/19 04/04/19 History Aspirin 81 mg PO DAILY@1700 04/04/19 04/04/19 History Bisacodyl 10 mg RECTAL DAILY PRN 04/04/19 04/04/19 History Calcium Carbonate/Vitamin D3 1 tab PO DAILY 04/04/19 04/04/19 History [Caltrate 600 Plus D3 Tablet] Famotidine [Pepcid] 20 mg PO DAILY 04/04/19 04/04/19 History INSULIN ASPART (NovoLOG) [NovoLOG 9 unit SQ TID-W/MEALS 04/04/19 04/04/19 History (formulary)] INSULIN ASPART (NovoLOG) [NovoLOG See Protocol SQ ACHS 04/04/19 04/04/19 History (formulary)] Levocetirizine Dihydrochloride 5 mg PO DAILY 04/04/19 04/04/19 History [Xyzal] Levothyroxine Sodium 125 mcg PO DAILY 04/04/19 04/04/19 History Loperamide [Imodium] 2 mg PO DAILY PRN 04/04/19 04/04/19 History Mag Hydrox/Al Hydrox/Simeth 15 ml PO Q6H PRN 04/04/19 04/04/19 History [Maalox] Metoprolol Tartrate [Lopressor] 50 mg PO BID 04/04/19 04/04/19 History diphenhydrAMINE HCL [Benadryl] 25 mg PO Q6H PRN 04/04/19 04/04/19 History guaiFENesin [guaiFENesin Oral 200 mg PO Q4H PRN 04/04/19 04/04/19 History Solution] Allergies Allergy/AdvReac Type Severity Reaction Status Date / Time cefdinir Allergy Severe Swelling Verified 04/04/19 22:54 Cephalosporins Allergy Unknown Verified 04/04/19 22:54 codeine Allergy Unknown Verified 04/04/19 22:54 doxycycline Allergy Nausea & Verified 04/04/19 22:54 Vomiting erythromycin base Allergy Nausea & Verified 04/04/19 22:54 Vomiting & Diarrhea/RASH Penicillins Allergy Rash/Hives Verified 04/04/19 22:54 trimethoprim [From Bactrim] Allergy Unknown Verified 04/04/19 22:54 azithromycin AdvReac Nausea & Verified 04/04/19 22:54 Vomiting hydrochlorothiazide AdvReac Nausea & Verified 04/04/19 22:54 [From Dyazide] Vomiting levofloxacin [From Levaquin] AdvReac Abdominal Verified 04/04/19 22:54 Pain moxifloxacin HCl AdvReac Unknown Verified 04/04/19 22:54 [From Avelox] sulfamethoxazole AdvReac Nausea & Verified 04/04/19 22:54 [From Bactrim] Vomiting & Diarrhea triamterene [From Dyazide] AdvReac Nausea & Verified 04/04/19 22:54 Vomiting Physical Exam Vitals: Vital Signs Temp Pulse Pulse Resp BP BP Pulse Ox 04/04/19 21:45 83 17 04/04/19 21:35 98.8 F 83 17 117/72 92 L 04/04/19 21:20 97.9 F 85 13 112/85 96 04/04/19 19:17 61 20 106/79 97 04/04/19 19:16 98.1 F 108 H 20 106/71 96 04/04/19 18:50 86 17 115/80 98 04/04/19 17:08 86 17 119/69 97 04/04/19 15:58 154 H 17 103/58 95 04/04/19 15:31 75 17 134/106 96 04/04/19 13:52 98.2 F 115 H 17 96/74 95 Intake and Output 04/04/19 04/04/19 04/05/19 14:59 22:59 06:59 Other: Voiding Method Diaper Incontinent # Voids 1 Weight 57.606 kg PHYSICAL EXAMINATION: Patient is lying in the bed comfortably, no acute distress, awake alert and oriented.. HEENT: Normocephalic. Neck is supple. Pupils reactive. Nostrils clear. Oral cavity is moist. Ears reveal no drainage. Neck reveals no JVD, carotid bruits, or thyromegaly. CHEST EXAMINATION: Trachea is central. Symmetrical expansion. Bibasilar diminished air entry. Lung douglas clear to auscultation and percussion. CARDIAC: Normal S1, S2 with no gallops. No murmurs. Irregularly irregular rhythm. ABDOMEN: Soft. Bowel sounds normal. No organomegaly. No abdominal bruits. Extremities: reveal no edema. No clubbing or cyanosis Neurologically awake, alert, oriented x3 with well-coordinated movements. No focal deficits noted Skin: No rash or skin lesions. Psychiatric: Coperative. Nonsuicidal Musculoskeletal: No joint swelling or deformity. Normal range of motion. Results CBC & Chem 7: 04/04/19 14:29 04/04/19 14:29 Labs: Abnormal Lab Results - Last 24 Hours (Table) 04/04/19 04/04/19 04/04/19 Range/Units 14:29 14:29 15:16 RBC 3.66 L (3.80-5.40) m/uL MCV 100.4 H (80.0-100.0) fL Neutrophils # 8.6 H (1.3-7.7) k/uL Lymphocytes # 0.8 L (1.0-4.8) k/uL Sodium 133 L (137-145) mmol/L Potassium 5.3 H (3.5-5.1) mmol/L Chloride 96 L (98-107) mmol/L BUN 44 H (7-17) mg/dL Glucose 63 L (74-99) mg/dL POC Glucose (mg/dL) 60 L (75-99) mg/dL AST 60 H (14-36) U/L ALT <6 L (9-52) U/L 04/04/19 Range/Units 21:51 RBC (3.80-5.40) m/uL MCV (80.0-100.0) fL Neutrophils # (1.3-7.7) k/uL Lymphocytes # (1.0-4.8) k/uL Sodium (137-145) mmol/L Potassium (3.5-5.1) mmol/L Chloride (98-107) mmol/L BUN (7-17) mg/dL Glucose (74-99) mg/dL POC Glucose (mg/dL) 178 H (75-99) mg/dL AST (14-36) U/L ALT (9-52) U/L Thrombosis Risk Factor Assmnt - DVT/VTE Prophylaxis DVT/VTE Prophylaxis: Pharmacologic Prophylaxis ordered - Choose All That Apply Any of the Below Risk Factors Present?: Yes Each Factor Represents 1 point: Abnormal pulmonary function (COPD), Varicose veins Other Risk Factors: Yes Each Risk Factor Represents 3 Points: Age 75 years or older Other congenital or acquired thrombophilia - If yes, enter type in comment: No Thrombosis Risk Factor Assessment Total Risk Factor Score: 5 Thrombosis Risk Factor Assessment Level: High Risk Assessment and Plan Assessment: Atrial fibrillation with a rapid ventricular rate. Chronic atrial fibrillation. Rate controlled with metoprolol usually. Not on anticoagulation due to intra-abdominal bleed and frequent falls. COPD not in exacerbation Diabetes type 2 insulin-dependent Chronic CHF with diastolic dysfunction GERD Hypertension Hyperlipidemia Hypothyroidism Diabetic peripheral neuropathy History of sarcoid and lungs Parkinson's disease Legally blind and macular degeneration Degenerative joint disease Gait dysfunction Ulcerative colitis history History of skin cancer on the lower lip removed Urinary incontinence DVT prophylaxis Plan: Patient will be continued on Cardizem drip to control heart rate and gradually taper down. Started back on metoprolol. Continue with the breathing treatments and home blood pressure medications. Insulin dosing and sliding scale. Continue the home medications and follow closely. Further recommendations based on the clinical course. Cardiology was consulted for evaluation. Time with Patient: Greater than 30
[2019-04-05 02:09] VITALS: RESP 18
[2019-04-05 06:40] LABS: Glucose,Whole Blood 156 mg/dL (75-99)
[2019-04-05] MEDS: INSULIN ASPART (NovoLOG) 100 UNIT/ML VIAL SQ SCH ×7 (06:53→22:00)
[2019-04-05] MEDS: LEVOTHYROXINE 125 MCG TAB PO SCH (06:53)
[2019-04-05] MEDS: METOPROLOL TARTRATE 50 MG TAB PO SCH ×2 (06:53→21:57)
[2019-04-05] MEDS: ASCORBIC ACID 500 MG TAB PO SCH (07:59)
[2019-04-05] MEDS: CALCIUM CARB-VIT D 500MG-200UN 1 EACH TAB PO SCH (07:59)
[2019-04-05] MEDS: MAGNESIUM OXIDE 400 MG TAB PO SCH ×2 (07:59→21:57)
[2019-04-05] MEDS: HEPARIN SODIUM,PORCINE 5,000 UNIT/ML 1 ML VIAL SQ SCH ×2 (07:59→08:13)
[2019-04-05] MEDS: FAMOTIDINE 20 MG TAB PO SCH (07:59)
[2019-04-05] MEDS: MULTIVITAMINS, THERA 1 EACH TAB PO SCH (07:59)
[2019-04-05] MEDS: VENLAFAXINE HCL ER 75 MG CAP PO SCH (08:00)
[2019-04-05] MEDS: INSULIN DETEMIR (LEVEMIR) 100 UNIT/ML SYR SQ SCH (08:00)
[2019-04-05] MEDS: DOCUSATE 100 MG CAP PO SCH (08:11)
--- NOTE | 2019-04-05 08:16 | XR ---
EXAMINATION TYPE: XR chest 1V DATE OF EXAM: 04/05/2019 COMPARISON: Prior chest x-ray 04/04/2019 HISTORY: Shortness of breath TECHNIQUE: Single frontal view of the chest is obtained. FINDINGS: Evidence of old granulomatous disease again noted. There is some improvement in the perihi lar patchy increased density. No pneumothorax. There is persistent blunting of the chest phrenic angl es. Heart size is stable. Aorta is dense. Arthropathy noted in the shoulders. IMPRESSION: Findings are similar to prior exam. There may be central atelectasis. Possible small ple ural effusions.
[2019-04-05] MEDS: SYMBICORT 160-4.5 MCG INHALER INHALATION SCH ×2 (08:21→19:57)
[2019-04-05] MEDS: IPRATROPIUM-ALBUTEROL 3 ML NEB INHALATION PRN ×3 (08:21→15:46)
[2019-04-05] MEDS: AMIODARONE 200 MG TAB PO SCH ×2 (09:17→21:56)
[2019-04-05 10:03] LABS: HGB 11.1 gm/dL (11.4-16.0); MCH 33.7 pg (25.0-35.0); MCHC 32.7 g/dL (31.0-37.0); MCV 103.1 fL (80.0-100.0); Macrocytosis Slight; Mean Platelet Volume 7.1; Platelet Count 148 k/uL (150-450); RDW 13.7 % (11.5-15.5); WBC 6.2 k/uL (3.8-10.6)
[2019-04-05 10:22] LABS: Calcium 9.3 mg/dL (8.4-10.2); Potassium 4.3 mmol/L (3.5-5.1)
--- NOTE | 2019-04-05 10:40 | CONS ---
CONSULTATION CHIEF COMPLAINT: Atrial fibrillation with rapid ventricular rate. Soledad is a 74-year-old lady with history of hypertension, COPD, parkinsonism, mild memory impairment, who is currently in the [facility]. She is sent to the hospital because she was found to be in atrial fibrillation with rapid ventricular rate. Cardiology has been consulted for the same. Patient has known paroxysmal atrial fibrillation and she used to be on an anticoagulant that had been stopped because of increased risk of bleeding. At the time of my evaluation, she remains in atrial fibrillation with poorly controlled ventricular rate. She is currently on intravenous Cardizem, on metoprolol and I am adding amiodarone. The patient is at increased risk for stroke as she is not taking any anticoagulant at the moment. I will obtain a 2D echo on her to document her LV function. PAST MEDICAL HISTORY: Significant for hypertension, atrial fibrillation, COPD, diabetes. MEDICATIONS: Medications at home included Tylenol, milk of magnesia, Maalox, Imodium, guaifenesin, albuterol, insulin, Lopressor 50 b.i.d., magnesium, Lasix, Advair, Colace, trazodone, Forteo, Lipitor, Levemir, aspirin. ALLERGIES: Has multiple drug allergies including CEPHALOSPORINS, CODEINE, DOXYCYCLINE, ERYTHROMYCIN, BACTRIM, DYAZIDE, LEVAQUIN, AVELOX. FAMILY HISTORY: Family history is negative for premature coronary artery disease. SOCIAL HISTORY: Social history is negative for current smoking, EtOH abuse or drug abuse. REVIEW OF SYSTEMS: Is unremarkable other than what has been mentioned in history of presenting illness. PHYSICAL EXAMINATION: On exam, comfortable at rest. Heart rate is 116 beats per minute. Blood pressure is 120/70. Respiratory rate is 18. Chest exam reveals good air entry bilaterally. Heart exam reveals first and second heart sounds, irregular rhythm and a systolic murmur at the left lower sternal border. Abdomen is soft. Examination of extremities did not reveal any edema. Peripheral pulses are felt. LABS: Labs show a hemoglobin of 11.1. Potassium is.5.3. Creatinine is 0.7. Tropes are negative. ASSESSMENT: Atrial fibrillation with rapid ventricular rate. PLAN: Will continue with the rate control measures. She is not a candidate for anticoagulation because of prior history of bleeding, She understands increase risk of stroke. We will obtain a 2D echo. MMODL / IJN: [id number] /
[2019-04-05 11:25] LABS: Appearance,Urine Turbid (Clear); Bacteria,Urine Few /hpf; Bilirubin,Urine Negative (Negative); Blood,Urine Small (Negative); Color,Urine Yellow; Glucose,Urine (UA) Negative (Negative); Ketones,Urine Negative (Negative); Leukocyte Esterase,Urine Large (Negative); Nitrite,Urine Negative (Negative); Protein,Urine 1+ (Negative); RBC,Urine 10 /hpf (0-5); Specific Gravity,Urine 1.015 (1.001-1.035); Squamous Epithelial Cell,Urine 1 /hpf (0-4); Urobilinogen,Urine <2.0 mg/dL (<2.0); WBC,Urine >182 /hpf (0-5)
[2019-04-05 12:04] LABS: Glucose,Whole Blood 182 mg/dL (75-99)
[2019-04-05] MEDS: DILTIAZEM 125 MG in SODIUM CHLORIDE 0.9% 100 ML IV SCH (13:33)
[2019-04-05] MEDS: AMMONIUM LACTATE 12% LOTION 225 GM BTL TOPICAL SCH (14:46)
[2019-04-05] MEDS: AZTREONAM 2 GM in SODIUM CHLORIDE 0.9% 100 ML IVPB SCH (16:07)
[2019-04-05] MEDS: ASPIRIN 81 MG PO SCH (16:07)
[2019-04-05 16:53] LABS: Glucose,Whole Blood 136 mg/dL (75-99)
[2019-04-05 20:49] LABS: Glucose,Whole Blood 220 mg/dL (75-99)
[2019-04-05] MEDS: OXYBUTYNIN 10 MG TAB.ER.24 PO SCH (21:56)
[2019-04-05] MEDS: ATORVASTATIN 10 MG TAB PO SCH (21:56)
[2019-04-05] MEDS: guaiFENesin SYRUP 100MG/5ML 200 MG/10 ML CUP PO PRN (23:03)
--- NOTE | 2019-04-06 00:17 | P.PN ---
Subjective Progress Note Date: 04/05/19 Principal diagnosis: A. fib with RVR Urinary tract infection Patient is a 74-year-old female with a known history of chronic atrial fibrillation currently not on anticoagulation due to intra-abdominal bleeding with hematoma and frequent falls, chronic CHF with diastolic dysfunction, hypertension, diabetes type 2 insulin-dependent, ICA stenosis and osteoporosis and other multiple medical problems currently staying at the extended care facility was brought to the hospital due to atrial fibrillation with rapid ventricular rate. Patient was found have rapid heart rate. Otherwise she denied any complaints of chest pain or shortness of breath. No headache or dizziness or lightheadedness. No increased leg swelling. Patient does have some weakness otherwise no nausea vomiting or abdominal pain or diarrhea. Denied any recent illnesses. EKG showed 133, potassium 5.3 with slight hemolysis, Chest x-ray showed there is some improvement in aeration. There are chronic alona nges including cardiomegaly, difficult to exclude pleural effusion with basilar atelectasis versus pneumonia. There may be atelectasis or central scarring, short interval follow-up suggested. 04/05/2019 Patient is more awake and oriented today. Heart rate is controlled and Cardizem drip has been discontinued. Patient is being continued on metoprolol. Recent urine cultures drawn on 03/30/2019 showed Proteus species Patient is ALLERGIC to multiple antibiotics. ID will be consulted. Redness of fever or chills. PT OT will be consulted. Patient does not wish to be discharged to rehab this time. Current medications reviewed. Objective - Vital Signs Vital signs: Vital Signs Temp 98.3 F 04/05/19 20:00 Pulse 81 04/05/19 20:00 Resp 18 04/05/19 20:00 BP 111/69 04/05/19 20:00 Pulse Ox 95 04/05/19 15:06 Intake & Output 04/05/19 04/05/19 04/06/19 06:59 18:59 06:59 Intake Total 1005.000 Output Total 300 300 Balance 705.000 -300 Weight 59 kg Intake: IV 200 .9 20ml/hr 160 Diltiazem 125 mg In 40 Sodium Chloride 0.9% 100 ml @ 5 MG/HR 5 mls/hr IV .Q24H [facility] Rx#:[id number] Intake, IV Titration 125.000 Amount Diltiazem 125 mg In 125.000 Sodium Chloride 0.9% 100 ml @ 5 MG/HR 5 mls/hr IV .Q24H [facility] Rx#:[id number] Oral 680 Output: Urine 300 300 Other: Voiding Method Diaper Diaper Toilet Incontinent Incontinent Diaper Incontinent # Voids 1 1 - Exam PHYSICAL EXAMINATION: Patient is lying in the bed comfortably, no acute distress, awake alert and oriented.. HEENT: Normocephalic. Neck is supple. Pupils reactive. Nostrils clear. Oral cavity is moist. Ears reveal no drainage. Neck reveals no JVD, carotid bruits, or thyromegaly. CHEST EXAMINATION: Trachea is central. Symmetrical expansion. Bibasilar diminished air entry. Lung douglas clear to auscultation and percussion. CARDIAC: Normal S1, S2 with no gallops. No murmurs. Irregularly irregular rhythm. ABDOMEN: Soft. Bowel sounds normal. No organomegaly. No abdominal bruits. Extremities: reveal no edema. No clubbing or cyanosis Neurologically awake, alert, oriented x3 with well-coordinated movements. No focal deficits noted Skin: No rash or skin lesions. Psychiatric: Coperative. Nonsuicidal Musculoskeletal: No joint swelling or deformity. Normal range of motion. - Labs CBC & Chem 7: 04/05/19 09:12 04/05/19 09:12 Labs: Abnormal Lab Results - Last 24 Hours (Table) 04/05/19 04/05/19 04/05/19 Range/Units 06:38 09:12 09:12 RBC 3.30 L (3.80-5.40) m/uL Hgb 11.1 L (11.4-16.0) gm/dL MCV 103.1 H (80.0-100.0) fL Plt Count 148 L (150-450) k/uL Sodium 134 L (137-145) mmol/L Chloride 96 L (98-107) mmol/L Carbon Dioxide 31 H (22-30) mmol/L BUN 40 H (7-17) mg/dL Glucose 174 H (74-99) mg/dL POC Glucose (mg/dL) 156 H (75-99) mg/dL Urine Appearance (Clear) Urine Protein (Negative) Urine Blood (Negative) Ur Leukocyte Esterase (Negative) Urine RBC (0-5) /hpf Urine WBC (0-5) /hpf Urine WBC Clumps (None) /hpf Urine Bacteria (None) /hpf 04/05/19 04/05/19 04/05/19 Range/Units 11:00 11:59 16:49 RBC (3.80-5.40) m/uL Hgb (11.4-16.0) gm/dL MCV (80.0-100.0) fL Plt Count (150-450) k/uL Sodium (137-145) mmol/L Chloride (98-107) mmol/L Carbon Dioxide (22-30) mmol/L BUN (7-17) mg/dL Glucose (74-99) mg/dL POC Glucose (mg/dL) 182 H 136 H (75-99) mg/dL Urine Appearance Turbid H (Clear) Urine Protein 1+ H (Negative) Urine Blood Small H (Negative) Ur Leukocyte Esterase Large H (Negative) Urine RBC 10 H (0-5) /hpf Urine WBC >182 H (0-5) /hpf Urine WBC Clumps Many H (None) /hpf Urine Bacteria Few H (None) /hpf 04/05/19 Range/Units 20:47 RBC (3.80-5.40) m/uL Hgb (11.4-16.0) gm/dL MCV (80.0-100.0) fL Plt Count (150-450) k/uL Sodium (137-145) mmol/L Chloride (98-107) mmol/L Carbon Dioxide (22-30) mmol/L BUN (7-17) mg/dL Glucose (74-99) mg/dL POC Glucose (mg/dL) 220 H (75-99) mg/dL Urine Appearance (Clear) Urine Protein (Negative) Urine Blood (Negative) Ur Leukocyte Esterase (Negative) Urine RBC (0-5) /hpf Urine WBC (0-5) /hpf Urine WBC Clumps (None) /hpf Urine Bacteria (None) /hpf Microbiology - Last 24 Hours (Table) 04/05/19 11:00 Urine Culture - Preliminary Urine,Clean Catch Assessment and Plan Assessment: Atrial fibrillation with a rapid ventricular rate. Rate controlled now. Acute urinary tract infection. Recent culture showed Proteus species. Patient is ALLERGIC to multiple antibiotics. Chronic atrial fibrillation. Rate controlled with metoprolol usually. Not on anticoagulation due to intra-abdominal bleed and frequent falls. COPD not in exacerbation Diabetes type 2 insulin-dependent Chronic CHF with diastolic dysfunction GERD Hypertension Hyperlipidemia Hypothyroidism Diabetic peripheral neuropathy History of sarcoid and lungs Parkinson's disease Legally blind and macular degeneration Degenerative joint disease Gait dysfunction Ulcerative colitis history History of skin cancer on the lower lip removed Urinary incontinence DVT prophylaxis Plan: Patient was continued on Cardizem drip to control heart rate and gradually taper down. Started back on metoprolol. Continue with the breathing treatments and home blood pressure medications. Insulin dosing and sliding scale. Continue the home medications and follow closely. Further recommendations based on the clinical course. Cardiology was consulted for evaluation. Time with Patient: Greater than 30
--- NOTE | 2019-04-06 01:09 | P.CONS ---
History of Present Illness - Reason for Consult Consult date: 04/05/19 UTI with multiple antibiotic ALLERGIES Requesting physician: Dinora Ryan - Chief Complaint Palpitation x 1 day - History of Present Illness Patient is a 74 year female who is currently a resident of [facility] patient was noticed to have elevated heart rate at the skilled nursing for which the patient did have an EKG with evidence of A. fib with RVR subsequently the patient be transferred to the [facility] ER for evaluation of the same, patient currently denies having any chest pain or shortness of breath or cough and no abdominal pain no nausea no vomiting she did complain of some burning of urine and some urgency but denies having suprapubic or flank discomfort patient was noticed to have a positive UA with large leukocyte esterase and many WBC because the patient did have multiple antibiotic ALLERGIES including penicillin and cephalosporin infectious disease was consulted for management of her antibiotics Review of Systems Positive points has been mentioned in HPI rest of the systems are negative 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, multiple drug allergies - some reactions severe, parkinsons, short term memory problems at times, L eye ocular stroke-legally blind, macular degeneration bilaterally, hypothyroid, DJD, DDD, several past fractures d/t falls, frequent falls, gait dysfunction, IBS, ulcerative colitis, acute renal failure, UTIs, 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incont of urien -has idc that was changed in er 10-24-18 History of Any Multi-Drug Resistant Organisms: VRE Year Discovered:: 08/18/13 [facility] MDRO Source:: Urine Past Surgical History: Appendectomy, Breast Surgery, Section, Cholecystectomy, Hysterectomy, Orthopedic Surgery Additional Past Surgical History / Comment(s): Debridements R lower leg, L side tongue benign lesion, 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, R shoulder fracture with surgical repair, L elbow ORIF hardware since removed, L hand fracture with surgical repair, bilateral breast benign bxs and reductions, D&C, EGD, colo noscopies, hemorrhoidectomy, bilateral cataract removals with lens implants.picc line"told it's not accessible" Past Anesthesia/Blood Transfusion Reactions: No Reported Reaction Additional Past Anesthesia/Blood Transfusion Reaction / Comm: CLAUSTERPHOBIA Smoking Status: Never smoker - Past Family History Father Family Medical History: Cancer, Prostate Disorder Additional Family Medical History / Comment(s): PROSTATE CA, HERNIA SX BACK SX Mother Family Medical History: Cancer Additional Family Medical History / Comment(s): Mother is . Mother had lung cancer. She was a smoker. Medications and Allergies Home Medications Medication Instructions Recorded Confirmed Type Carbidopa-Levodopa 25-100 mg 1 tab PO TID 01/15/16 04/04/19 History [Sinemet 25-100 mg] Multivitamins, Thera [Multivitamin 1 tab PO DAILY 04/28/18 04/04/19 History (formulary)] Atorvastatin Calcium [Lipitor] 10 mg PO HS@2100 08/09/18 04/04/19 History Docusate [Colace] 100 mg PO BID 08/09/18 04/04/19 History Ergocalciferol [Vitamin D2 50,000 unit PO ROSA 08/09/18 04/04/19 History (DRISDOL)] Ferrous Sulfate [Iron] 325 mg PO DAILY 08/09/18 04/04/19 History Fluticasone/Salmeterol [Advair 1 puff PO RT-BID 08/09/18 04/04/19 History 500-50 Diskus] Thiamine HCl [Vitamin B-1] 100 mg PO DAILY@1200 08/09/18 04/04/19 History Tolterodine Tartrate [Detrol LA] 4 mg PO HS@2100 08/09/18 04/04/19 History Venlafaxine HCl ER [Effexor XR] 75 mg PO DAILY 08/09/18 04/04/19 History Vit C/E/Zn/Coppr/Lutein/Zeaxan 1 tab PO DAILY@1700 08/09/18 04/04/19 History [Preservision Areds 2 Softgel] Magnesium Hydroxide [Milk of 2,400 mg PO DAILY PRN 09/12/18 04/04/19 History Magnesia] Tetrahydrozoline 0.05% Ophth 1 drops BOTH EYES TID PRN ml 09/23/18 04/04/19 Rx [Visine Eye Drops] Ammonium Lactate Lotion 1 applic TOPICAL DAILY@1500 10/24/18 04/04/19 History [Lac-Hydrin 12% Lotion] Insulin Detemir (Levemir) [Levemir] 14 unit SQ QAM 10/24/18 04/04/19 History Ipratropium-Albuterol Nebulize 3 ml INHALATION RT-QID PRN 10/24/18 04/04/19 History [Duoneb 0.5 mg-3 mg/3 ml Soln] Magnesium Oxide [Mag-Ox] 400 mg PO BID 10/24/18 04/04/19 History Melatonin 1 mg PO HS PRN 10/24/18 04/04/19 History Teriparatide [Forteo] 20 mcg SQ DAILY 10/24/18 04/04/19 History traZODone HCL 50 mg PO HS 10/24/18 04/04/19 History Furosemide [Lasix] 20 mg PO BID #60 tab 11/01/18 04/04/19 Rx Lactulose [Cephulac] 20 gm PO BID PRN ml 11/01/18 04/04/19 Rx Acetaminophen Tab [Tylenol Tab] 1,000 mg PO Q6HR PRN 04/04/19 04/04/19 History Ascorbic Acid [Vitamin C] 500 mg PO DAILY 04/04/19 04/04/19 History Aspirin 81 mg PO DAILY@1700 04/04/19 04/04/19 History Bisacodyl 10 mg RECTAL DAILY PRN 04/04/19 04/04/19 History Calcium Carbonate/Vitamin D3 1 tab PO DAILY 04/04/19 04/04/19 History [Caltrate 600 Plus D3 Tablet] Famotidine [Pepcid] 20 mg PO DAILY 04/04/19 04/04/19 History INSULIN ASPART (NovoLOG) [NovoLOG 9 unit SQ TID-W/MEALS 04/04/19 04/04/19 History (formulary)] INSULIN ASPART (NovoLOG) [NovoLOG See Protocol SQ ACHS 04/04/19 04/04/19 History (formulary)] Levocetirizine Dihydrochloride 5 mg PO DAILY 04/04/19 04/04/19 History [Xyzal] Levothyroxine Sodium 125 mcg PO DAILY 04/04/19 04/04/19 History Loperamide [Imodium] 2 mg PO DAILY PRN 04/04/19 04/04/19 History Mag Hydrox/Al Hydrox/Simeth 15 ml PO Q6H PRN 04/04/19 04/04/19 History [Maalox] Metoprolol Tartrate [Lopressor] 50 mg PO BID 04/04/19 04/04/19 History diphenhydrAMINE HCL [Benadryl] 25 mg PO Q6H PRN 04/04/19 04/04/19 History guaiFENesin [guaiFENesin Oral 200 mg PO Q4H PRN 04/04/19 04/04/19 History Solution] Allergies Allergy/AdvReac Type Severity Reaction Status Date / Time cefdinir Allergy Severe Swelling Verified 04/04/19 22:54 Cephalosporins Allergy Unknown Verified 04/04/19 22:54 codeine Allergy Unknown Verified 04/04/19 22:54 doxycycline Allergy Nausea & Verified 04/04/19 22:54 Vomiting erythromycin base Allergy Nausea & Verified 04/04/19 22:54 Vomiting & Diarrhea/RASH Penicillins Allergy Rash/Hives Verified 04/04/19 22:54 trimethoprim [From Bactrim] Allergy Unknown Verified 04/04/19 22:54 azithromycin AdvReac Nausea & Verified 04/04/19 22:54 Vomiting hydrochlorothiazide AdvReac Nausea & Verified 04/04/19 22:54 [From Dyazide] Vomiting levofloxacin [From Levaquin] AdvReac Abdominal Verified 04/04/19 22:54 Pain moxifloxacin HCl AdvReac Unknown Verified 04/04/19 22:54 [From Avelox] sulfamethoxazole AdvReac Nausea & Verified 04/04/19 22:54 [From Bactrim] Vomiting & Diarrhea triamterene [From Dyazide] AdvReac Nausea & Verified 04/04/19 22:54 Vomiting Physical Exam Vitals: Vital Signs Temp Pulse Pulse Resp BP BP Pulse Ox 04/05/19 12:00 98.1 F 91 18 119/76 100 04/05/19 11:56 92 04/05/19 11:43 92 04/05/19 08:35 116 H 04/05/19 08:21 112 H 04/05/19 07:30 98.6 F 140 H 18 104/53 100 04/05/19 04:00 98 F 122 H 18 99/63 94 L 04/05/19 00:00 98.5 F 110 H 18 94/66 94 L 04/04/19 21:45 83 17 04/04/19 21:35 98.8 F 83 17 117/72 92 L 04/04/19 21:20 97.9 F 85 13 112/85 96 04/04/19 19:17 61 20 106/79 97 04/04/19 19:16 98.1 F 108 H 20 106/71 96 04/04/19 18:50 86 17 115/80 98 04/04/19 17:08 86 17 119/69 97 04/04/19 15:58 154 H 17 103/58 95 04/04/19 15:31 75 17 134/106 96 Intake and Output 04/04/19 04/05/19 04/05/19 22:59 06:59 14:59 Intake Total 805.000 Balance 805.000 Intake: IV 200 .9 20ml/hr 160 Diltiazem 125 mg In 40 Sodium Chloride 0.9% 100 ml @ 5 MG/HR 5 mls/hr IV .Q24H [facility] Rx#:[id number] Intake, IV Titration 125.000 Amount Diltiazem 125 mg In 125.000 Sodium Chloride 0.9% 100 ml @ 5 MG/HR 5 mls/hr IV .Q24H [facility] Rx#:[id number] Oral 480 Other: Voiding Method Diaper Diaper Diaper Incontinent Incontinent Incontinent # Voids 1 1 Weight 59 kg GENERAL DESCRIPTION: Elderly female lying in bed, no distress. No tachypnea or accessory muscle of respiration use. HEENT: Shows Pallor , no scleral icterus. Oral mucous membrane is dry. No pharyngeal erythema or thrush NECK: Trachea central, no thyromegaly. LUNGS: Unlabored breathing. Clear to auscultation anteriorly. No wheeze or crackle. HEART: S1, S2, regular rate and irregular rhythm. No loud murmur ABDOMEN: Soft, no tenderness , guarding or rigidity, no organomegaly EXTREMITIES: No edema of feet. SKIN: No rash, no masses palpable. NEUROLOGICAL: The patient is awake, alert, oriented x3, mood and affect normal. Results CBC & Chem 7: 04/05/19 09:12 04/05/19 09:12 Labs: Abnormal Lab Results - Last 24 Hours (Table) 04/04/19 04/04/19 04/04/19 Range/Units 14:29 14:29 15:16 RBC 3.66 L (3.80-5.40) m/uL Hgb (11.4-16.0) gm/dL MCV 100.4 H (80.0-100.0) fL Plt Count (150-450) k/uL Neutrophils # 8.6 H (1.3-7.7) k/uL Lymphocytes # 0.8 L (1.0-4.8) k/uL Sodium 133 L (137-145) mmol/L Potassium 5.3 H (3.5-5.1) mmol/L Chloride 96 L (98-107) mmol/L Carbon Dioxide (22-30) mmol/L BUN 44 H (7-17) mg/dL Glucose 63 L (74-99) mg/dL POC Glucose (mg/dL) 60 L (75-99) mg/dL AST 60 H (14-36) U/L ALT <6 L (9-52) U/L Urine Appearance (Clear) Urine Protein (Negative) Urine Blood (Negative) Ur Leukocyte Esterase (Negative) Urine RBC (0-5) /hpf Urine WBC (0-5) /hpf Urine WBC Clumps (None) /hpf Urine Bacteria (None) /hpf 04/04/19 04/05/19 04/05/19 Range/Units 21:51 06:38 09:12 RBC 3.30 L (3.80-5.40) m/uL Hgb 11.1 L (11.4-16.0) gm/dL MCV 103.1 H (80.0-100.0) fL Plt Count 148 L (150-450) k/uL Neutrophils # (1.3-7.7) k/uL Lymphocytes # (1.0-4.8) k/uL Sodium (137-145) mmol/L Potassium (3.5-5.1) mmol/L Chloride (98-107) mmol/L Carbon Dioxide (22-30) mmol/L BUN (7-17) mg/dL Glucose (74-99) mg/dL POC Glucose (mg/dL) 178 H 156 H (75-99) mg/dL AST (14-36) U/L ALT (9-52) U/L Urine Appearance (Clear) Urine Protein (Negative) Urine Blood (Negative) Ur Leukocyte Esterase (Negative) Urine RBC (0-5) /hpf Urine WBC (0-5) /hpf Urine WBC Clumps (None) /hpf Urine Bacteria (None) /hpf 04/05/19 04/05/19 04/05/19 Range/Units 09:12 11:00 11:59 RBC (3.80-5.40) m/uL Hgb (11.4-16.0) gm/dL MCV (80.0-100.0) fL Plt Count (150-450) k/uL Neutrophils # (1.3-7.7) k/uL Lymphocytes # (1.0-4.8) k/uL Sodium 134 L (137-145) mmol/L Potassium (3.5-5.1) mmol/L Chloride 96 L (98-107) mmol/L Carbon Dioxide 31 H (22-30) mmol/L BUN 40 H (7-17) mg/dL Glucose 174 H (74-99) mg/dL POC Glucose (mg/dL) 182 H (75-99) mg/dL AST (14-36) U/L ALT (9-52) U/L Urine Appearance Turbid H (Clear) Urine Protein 1+ H (Negative) Urine Blood Small H (Negative) Ur Leukocyte Esterase Large H (Negative) Urine RBC 10 H (0-5) /hpf Urine WBC >182 H (0-5) /hpf Urine WBC Clumps Many H (None) /hpf Urine Bacteria Few H (None) /hpf Assessment and Plan Assessment: 1-patient with symptoms of a urinary burning or urgency however no significant suprapubic or flank pain no nausea and vomiting likely resulting cystitis from enteric gram-negative pathogen 2-Patient with multiple antibiotics ALLERGIES that will limit the number of antibiotic safe to use Plan: 1-we will start the patient on Azactam 2 g every 12 hours while waiting for the cultures to finalize 2-gentle IV fluid we will follow on clinical condition and culture to further adjust medication if needed Thank you for this consultation will follow this patient along with you Time with Patient: Greater than 30
[2019-04-06] MEDS: AZTREONAM 2 GM in SODIUM CHLORIDE 0.9% 100 ML IVPB SCH ×2 (04:00→15:27)
[2019-04-06 06:45] LABS: Glucose,Whole Blood 147 mg/dL (75-99)
[2019-04-06] MEDS: LEVOTHYROXINE 125 MCG TAB PO SCH (06:48)
[2019-04-06] MEDS: DOCUSATE 100 MG CAP PO SCH ×2 (06:48→08:53)
[2019-04-06] MEDS: INSULIN ASPART (NovoLOG) 100 UNIT/ML VIAL SQ SCH ×6 (06:49→17:32)
[2019-04-06 07:55] LABS: Basophils % (A) 0 %; Eosinophils # (A) 0.2 k/uL (0-0.7); Eosinophils % (A) 3 %; HCT 31.2 % (34.0-46.0); HGB 10.3 gm/dL (11.4-16.0); Lymphocytes # (A) 0.8 k/uL (1.0-4.8); Lymphocytes % (A) 12 %; MCH 33.7 pg (25.0-35.0); MCHC 33.1 g/dL (31.0-37.0); MCV 101.7 fL (80.0-100.0); Macrocytosis Slight; Mean Platelet Volume 6.9; Monocytes # (A) 0.4 k/uL (0-1.0); Monocytes % (A) 6 %; Neutrophils # (A) 4.6 k/uL (1.3-7.7); Neutrophils % (A) 76 %; Platelet Count 149 k/uL (150-450); RBC 3.06 m/uL (3.80-5.40); RDW 13.8 % (11.5-15.5); WBC 6.1 k/uL (3.8-10.6)
[2019-04-06] MEDS: SYMBICORT 160-4.5 MCG INHALER INHALATION SCH ×2 (08:16→19:50)
[2019-04-06] MEDS: IPRATROPIUM-ALBUTEROL 3 ML NEB INHALATION PRN ×4 (08:16→19:50)
[2019-04-06 08:18] LABS: Calcium 8.9 mg/dL (8.4-10.2); Potassium 4.4 mmol/L (3.5-5.1)
[2019-04-06] MEDS: INSULIN DETEMIR (LEVEMIR) 100 UNIT/ML SYR SQ SCH (08:51)
[2019-04-06] MEDS: VENLAFAXINE HCL ER 75 MG CAP PO SCH (08:52)
[2019-04-06] MEDS: METOPROLOL TARTRATE 50 MG TAB PO SCH ×3 (08:52→22:31)
[2019-04-06] MEDS: MULTIVITAMINS, THERA 1 EACH TAB PO SCH (08:52)
[2019-04-06] MEDS: ASCORBIC ACID 500 MG TAB PO SCH (08:52)
[2019-04-06] MEDS: MAGNESIUM OXIDE 400 MG TAB PO SCH ×2 (08:52→22:32)
[2019-04-06] MEDS: AMIODARONE 200 MG TAB PO SCH ×2 (08:52→22:31)
[2019-04-06] MEDS: FAMOTIDINE 20 MG TAB PO SCH (08:52)
[2019-04-06] MEDS: CALCIUM CARB-VIT D 500MG-200UN 1 EACH TAB PO SCH (08:52)
[2019-04-06] MEDS: CARBIDOPA-LEVODOPA 25-100 MG 1 EACH TAB PO SCH ×3 (08:52→22:31)
--- NOTE | 2019-04-06 11:56 | P.PN ---
Subjective Progress Note Date: 04/06/19 This is a 74-year-old female with history of hypertension, COPD, Parkinson's, prior history of a bleeding, paroxysmal atrial fibrillation, patient cannot take anticoagulation because of her risk for recurrent bleeding. Patient was on IV Cardizem, this morning she had a positive proximally 2-1/2 seconds and the Cardizem was discontinued. She continues to be in atrial fibrillation at this time, her heart rate is in the 80s to 90s. Blood pressure 110/70, heart rate of 90, 94% on room air. Blood cell count 6.1, hemoglobin 10.3, platelet count 149, sodium 132, potassium 4.4, BUN 38 and creatinine 0.8. Objective - Vital Signs Vital signs: Vital Signs Temp 98.3 F 04/06/19 07:53 Pulse 96 04/06/19 11:40 Resp 18 04/06/19 07:56 BP 110/73 04/06/19 07:53 Pulse Ox 94 L 04/06/19 07:53 Intake & Output 04/05/19 04/06/19 04/06/19 18:59 06:59 18:59 Intake Total 1005.000 325 Output Total 300 600 Balance 705.000 -600 325 Weight 71.8 kg Intake: IV 200 .9 20ml/hr 160 Diltiazem 125 mg In 40 Sodium Chloride 0.9% 100 ml @ 5 MG/HR 5 mls/hr IV .Q24H [facility] Rx#:[id number] Intake, IV Titration 125.000 125 Amount Diltiazem 125 mg In 125.000 125 Sodium Chloride 0.9% 100 ml @ 5 MG/HR 5 mls/hr IV .Q24H [facility] Rx#:[id number] Oral 680 200 Output: Urine 300 600 Other: Voiding Method Diaper Toilet Toilet Incontinent Diaper Diaper Incontinent Incontinent # Voids 1 - Exam PHYSICAL EXAMINATION: GENERAL: 74-year-old female in no acute distress at the time of my examination HEENT: Head is atraumatic, normocephalic. Pupils equal, round. Sclera anicteric. Conjunctiva are clear. Mucous membranes of the mouth are moist. Neck is supple. There is no elevated jugular venous pressure. No carotid bruit is heard. HEART EXAMINATION: Heart S1 and S2 irregularly irregular a systolic murmur is heard CHEST EXAMINATION: Lungs are clear to auscultation and precussion. No chest wall tenderness is noted on palpation or with deep breathing. ABDOMEN: Soft, nontender. Bowel sounds are heard. No organomegaly noted. EXTREMITIES: 2+ peripheral pulses with no evidence of peripheral edema and no calf tenderness noted. NEUROLOGIC patient is awake, alert and oriented 3 . . - Labs CBC & Chem 7: 04/06/19 07:11 04/06/19 07:11 Labs: Abnormal Lab Results - Last 24 Hours (Table) 04/05/19 04/05/19 04/05/19 Range/Units 11:59 16:49 20:47 RBC (3.80-5.40) m/uL Hgb (11.4-16.0) gm/dL Hct (34.0-46.0) % MCV (80.0-100.0) fL Plt Count (150-450) k/uL Lymphocytes # (1.0-4.8) k/uL Sodium (137-145) mmol/L Chloride (98-107) mmol/L BUN (7-17) mg/dL Glucose (74-99) mg/dL POC Glucose (mg/dL) 182 H 136 H 220 H (75-99) mg/dL 04/06/19 04/06/19 04/06/19 Range/Units 06:31 07:11 07:11 RBC 3.06 L (3.80-5.40) m/uL Hgb 10.3 L (11.4-16.0) gm/dL Hct 31.2 L (34.0-46.0) % MCV 101.7 H (80.0-100.0) fL Plt Count 149 L (150-450) k/uL Lymphocytes # 0.8 L (1.0-4.8) k/uL Sodium 132 L (137-145) mmol/L Chloride 96 L (98-107) mmol/L BUN 38 H (7-17) mg/dL Glucose 148 H (74-99) mg/dL POC Glucose (mg/dL) 147 H (75-99) mg/dL Microbiology - Last 24 Hours (Table) 04/05/19 11:00 Urine Culture - Preliminary Urine,Clean Catch Assessment and Plan Plan: Assessment and plan #1 persistent atrial fibrillation with rapid ventricular response #2 history of prior bleeding when on anticoagulation, therefore patient is not a candidate to have an onboard. #3 Parkinson's #4 COPD #5 hypertension Plan We will continue with the amiodarone 400 mg one tablet by mouth twice a day for one week, then we will decrease that to 200 mg 3 times a day for one week then 200 mg by mouth twice a day. Continue current dose of beta elisabeth. DNP note has been reviewed, I agree with a documented findings and plan of care. Patient was seen and examined.
[2019-04-06 12:30] LABS: Glucose,Whole Blood 186 mg/dL (75-99)
[2019-04-06] MEDS: AMMONIUM LACTATE 12% LOTION 225 GM BTL TOPICAL SCH (12:52)
[2019-04-06] MEDS: ASPIRIN 81 MG PO SCH (15:25)
[2019-04-06 17:22] LABS: Glucose,Whole Blood 168 mg/dL (75-99)
[2019-04-06 20:44] LABS: Glucose,Whole Blood 88 mg/dL (75-99)
--- NOTE | 2019-04-06 21:11 | PN ---
PROGRESS NOTE DATE OF SERVICE: 04/06/2019. REASON FOR FOLLOWUP: UTI with multiple antibiotic allergies. INTERVAL HISTORY: The patient is currently afebrile. Patient has been breathing comfortably. Patient denies having any chest pain or any cough. No abdominal pains. Still has some some urinary burning. No frequency. PHYSICAL EXAMINATION: Blood pressure is 111/57 with a pulse of 78, temperature 98.2. She is 93% on room air. General description is an elderly female, lying in bed in no distress. Respiratory system: Unlabored breathing, clear to auscultation anteriorly. Heart S1, S2. Regular rate and rhythm. Abdomen soft. No tenderness. LABS: BUN of 38, creatinine 0.82, hemoglobin 7.8, white count 6.1. Urine with gram-negative. DIAGNOSTIC IMPRESSION AND PLAN: Patient with gram-negative urinary tract infection with MULTIPLE ANTIBIOTIC ALLERGIES. Patient currently covered with Azactam to continue while monitoring clinical course closely. Continue supportive care. MMODL / IJN: [id number] /
[2019-04-06] MEDS: traZODone HCL 50 MG TAB PO SCH (22:32)
[2019-04-06] MEDS: ATORVASTATIN 10 MG TAB PO SCH (22:32)
[2019-04-06] MEDS: OXYBUTYNIN 10 MG TAB.ER.24 PO SCH (23:36)
[2019-04-06] MEDS: guaiFENesin SYRUP 100MG/5ML 200 MG/10 ML CUP PO PRN (23:36)
--- NOTE | 2019-04-06 23:48 | P.PN ---
Subjective Progress Note Date: 04/06/19 Principal diagnosis: A. fib with RVR Urinary tract infection Patient is a 74-year-old female with a known history of chronic atrial fibrillation currently not on anticoagulation due to intra-abdominal bleeding with hematoma and frequent falls, chronic CHF with diastolic dysfunction, hypertension, diabetes type 2 insulin-dependent, ICA stenosis and osteoporosis and other multiple medical problems currently staying at the extended care facility was brought to the hospital due to atrial fibrillation with rapid ventricular rate. Patient was found have rapid heart rate. Otherwise she denied any complaints of chest pain or shortness of breath. No headache or dizziness or lightheadedness. No increased leg swelling. Patient does have some weakness otherwise no nausea vomiting or abdominal pain or diarrhea. Denied any recent illnesses. EKG showed 133, potassium 5.3 with slight hemolysis, Chest x-ray showed there is some improvement in aeration. There are chronic alona nges including cardiomegaly, difficult to exclude pleural effusion with basilar atelectasis versus pneumonia. There may be atelectasis or central scarring, short interval follow-up suggested. 04/05/2019 Patient is more awake and oriented today. Heart rate is controlled and Cardizem drip has been discontinued. Patient is being continued on metoprolol. Recent urine cultures drawn on 03/30/2019 showed Proteus species Patient is ALLERGIC to multiple antibiotics. ID will be consulted. Redness of fever or chills. PT OT will be consulted. Patient does not wish to be discharged to rehab this time. 04/06/2019 Patient denied any complaints of chest pain or shortness of breath. Heart rate is better controlled. Patient was started on amiodarone. Cardiology is following. PT OT is on board. Otherwise currently on antibiotics in the form of aztreonam for urinary tract infection. ID is following. Await final culture reports. Anticipate discharge to rehab in next 24 hours. Current medications reviewed. Objective - Vital Signs Vital signs: Vital Signs Temp 97.1 F L 04/06/19 20:00 Pulse 82 04/06/19 20:00 Resp 18 04/06/19 20:00 BP 157/81 04/06/19 20:00 Pulse Ox 98 04/06/19 20:00 Intake & Output 04/06/19 04/06/19 04/07/19 06:59 18:59 06:59 Intake Total 755 Output Total 600 600 600 Balance -600 155 -600 Weight 71.8 kg Intake: Intake, IV Titration 125 Amount Diltiazem 125 mg In 125 Sodium Chloride 0.9% 100 ml @ 5 MG/HR 5 mls/hr IV .Q24H [facility] Rx#:[id number] Oral 630 Output: Urine 600 600 600 Other: Voiding Method Toilet Toilet Toilet Diaper Diaper Diaper Incontinent Incontinent Incontinent # Voids 1 1 - Exam PHYSICAL EXAMINATION: Patient is lying in the bed comfortably, no acute distress, awake alert and oriented.. HEENT: Normocephalic. Neck is supple. Pupils reactive. Nostrils clear. Oral cavity is moist. Ears reveal no drainage. Neck reveals no JVD, carotid bruits, or thyromegaly. CHEST EXAMINATION: Trachea is central. Symmetrical expansion. Bibasilar diminished air entry. Lung douglas clear to auscultation and percussion. CARDIAC: Normal S1, S2 with no gallops. No murmurs. Irregularly irregular rhythm. ABDOMEN: Soft. Bowel sounds normal. No organomegaly. No abdominal bruits. Extremities: reveal no edema. No clubbing or cyanosis Neurologically awake, alert, oriented x3 with well-coordinated movements. No focal deficits noted Skin: No rash or skin lesions. Psychiatric: Coperative. Nonsuicidal Musculoskeletal: No joint swelling or deformity. Normal range of motion. - Labs CBC & Chem 7: 04/06/19 07:11 04/06/19 07:11 Labs: Abnormal Lab Results - Last 24 Hours (Table) 04/06/19 04/06/19 04/06/19 Range/Units 06:31 07:11 07:11 RBC 3.06 L (3.80-5.40) m/uL Hgb 10.3 L (11.4-16.0) gm/dL Hct 31.2 L (34.0-46.0) % MCV 101.7 H (80.0-100.0) fL Plt Count 149 L (150-450) k/uL Lymphocytes # 0.8 L (1.0-4.8) k/uL Sodium 132 L (137-145) mmol/L Chloride 96 L (98-107) mmol/L BUN 38 H (7-17) mg/dL Glucose 148 H (74-99) mg/dL POC Glucose (mg/dL) 147 H (75-99) mg/dL 04/06/19 04/06/19 Range/Units 12:07 17:06 RBC (3.80-5.40) m/uL Hgb (11.4-16.0) gm/dL Hct (34.0-46.0) % MCV (80.0-100.0) fL Plt Count (150-450) k/uL Lymphocytes # (1.0-4.8) k/uL Sodium (137-145) mmol/L Chloride (98-107) mmol/L BUN (7-17) mg/dL Glucose (74-99) mg/dL POC Glucose (mg/dL) 186 H 168 H (75-99) mg/dL Microbiology - Last 24 Hours (Table) 04/05/19 11:00 Urine Culture - Preliminary Urine,Clean Catch Gram Neg Bacilli Assessment and Plan Assessment: Atrial fibrillation with a rapid ventricular rate. Rate controlled now. Acute urinary tract infection. Recent culture showed Proteus species. Patient is ALLERGIC to multiple antibiotics. Currently on aztreonam. Chronic persistent atrial fibrillation. Rate controlled with metoprolol usually. Not on anticoagulation due to intra-abdominal bleed and frequent falls. COPD not in exacerbation Diabetes type 2 insulin-dependent Chronic CHF with diastolic dysfunction GERD Hypertension Hyperlipidemia Hypothyroidism Diabetic peripheral neuropathy History of sarcoid and lungs Parkinson's disease Legally blind and macular degeneration Degenerative joint disease Gait dysfunction Ulcerative colitis history History of skin cancer on the lower lip removed Urinary incontinence DVT prophylaxis Plan: Patient was continued on Cardizem drip to control heart rate and gradually taper down. Started back on metoprolol. Added amiodarone. Continue with the breathing treatments and home blood pressure medications. Insulin dosing and sliding scale. Continue the home medications and follow closely. Further recommendations based on the clinical course. Cardiology was consulted for evaluation. Time with Patient: Greater than 30
[2019-04-07] MEDS: AZTREONAM 2 GM in SODIUM CHLORIDE 0.9% 100 ML IVPB SCH (04:00)
[2019-04-07] MEDS: DOCUSATE 100 MG CAP PO SCH ×2 (04:56→09:06)
[2019-04-07] MEDS: INSULIN ASPART (NovoLOG) 100 UNIT/ML VIAL SQ SCH ×5 (04:57→12:10)
[2019-04-07 06:24] LABS: Glucose,Whole Blood 151 mg/dL (75-99)
[2019-04-07] MEDS: LEVOTHYROXINE 125 MCG TAB PO SCH (06:39)
[2019-04-07] MEDS: SYMBICORT 160-4.5 MCG INHALER INHALATION SCH (08:10)
--- NOTE | 2019-04-07 08:54 | PN ---
PROGRESS NOTE Soledad is a 74-year-old lady who was admitted to hospital with atrial fibrillation with rapid ventricular rate. This morning she is doing well and is free of symptoms. Heart rate is well controlled, on metoprolol 50 mg t.i.d. and amiodarone 400 b.i.d. PHYSICAL EXAM: Heart rate is 83 beats per minute. Blood pressure is 139/90, respiratory rate is 18. Chest exam reveals good air entry bilaterally. Heart exam reveals first and second heart sounds. No gallop. Exam of extremities did not reveal any edema. Peripheral pulses are felt. LABS: I do not have any labs from this morning. Blood sugars are up is 151, potassium is 4.4, creatinine is 0.8. ASSESSMENT: Chronic atrial fibrillation with controlled ventricular rate. PLAN: I am going to decrease the dose of amiodarone to 200 b.i.d. and will further decrease it and stop this in the outpatient setting and continue the metoprolol that she is on the son Soledad Corcoran. MMODL / IJN: [id number] /
[2019-04-07] MEDS ORDERED: AMIODARONE 200 MG TAB PO SCH (09:00)
[2019-04-07] MEDS: MAGNESIUM OXIDE 400 MG TAB PO SCH (09:05)
[2019-04-07] MEDS: CALCIUM CARB-VIT D 500MG-200UN 1 EACH TAB PO SCH (09:05)
[2019-04-07] MEDS: VENLAFAXINE HCL ER 75 MG CAP PO SCH (09:05)
[2019-04-07] MEDS: CARBIDOPA-LEVODOPA 25-100 MG 1 EACH TAB PO SCH (09:05)
[2019-04-07] MEDS: ASCORBIC ACID 500 MG TAB PO SCH (09:06)
[2019-04-07] MEDS: MULTIVITAMINS, THERA 1 EACH TAB PO SCH (09:06)
[2019-04-07] MEDS: METOPROLOL TARTRATE 50 MG TAB PO SCH (09:06)
[2019-04-07] MEDS: FAMOTIDINE 20 MG TAB PO SCH (09:06)
[2019-04-07] MEDS: INSULIN DETEMIR (LEVEMIR) 100 UNIT/ML SYR SQ SCH (09:06)
[2019-04-07 11:47] LABS: Glucose,Whole Blood 211 mg/dL (75-99)
[2019-04-07] MEDS: AMMONIUM LACTATE 12% LOTION 225 GM BTL TOPICAL SCH (12:19)
[2019-04-07 12:47] VITALS: BP 110/72; PULSE 85; TEMP 98.3
--- NOTE | 2019-04-07 15:13 | P.DS ---
Providers Date of admission: 04/04/19 16:29 Expected date of discharge: 04/07/19 Attending physician: Dinora Ryan Consults: 04/04/19 16:52 Consult Physician Urgent Consulting Provider: Wai Casper Consult Reason/Comments: afib rvr Do you want consulting provider notified?: Yes 04/05/19 14:14 Consult Physician Urgent Consulting Provider: Raquel Cotto Consult Reason/Comments: UTI, multiple allergies to antibiotics. Do you want consulting provider notified?: Yes Primary care physician: [facility] Course: Discharge diagnosis. Atrial fibrillation with a rapid ventricular rate. Rate controlled now. Off Cardizem drip. Continue with metoprolol and amiodarone. Follow-up with cardiology. Acute urinary tract infection with Proteus. Recent culture also showed Proteus species. Patient is ALLERGIC to multiple antibiotics. Currently on aztreonam. Continue for 7 more days. Chronic persistent atrial fibrillation. Rate controlled with metoprolol usu ally. Not on anticoagulation due to intra-abdominal bleed and frequent falls. COPD not in exacerbation Diabetes type 2 insulin-dependent Chronic CHF with diastolic dysfunction GERD Hypertension Hyperlipidemia Hypothyroidism Diabetic peripheral neuropathy History of sarcoid and lungs Parkinson's disease Legally blind and macular degeneration Degenerative joint disease Gait dysfunction Ulcerative colitis history History of skin cancer on the lower lip removed Urinary incontinence DVT prophylaxis Hospital course Patient is a 74-year-old female with a known history of chronic atrial fibrillation currently not on anticoagulation due to intra-abdominal bleeding with hematoma and frequent falls, chronic CHF with diastolic dysfunction, hypertension, diabetes type 2 insulin-dependent, ICA stenosis and osteoporosis and other multiple medical problems currently staying at the extended care facility was brought to the hospital due to atrial fibrillation with rapid ventricular rate. Patient was found have rapid heart rate. Otherwise she denied any complaints of chest pain or shortness of breath. No headache or dizziness or lightheadedness. No increased leg swelling. Patient does have so me weakness otherwise no nausea vomiting or abdominal pain or diarrhea. Denied any recent illnesses. EKG showed 133, potassium 5.3 with slight hemolysis, Chest x-ray showed there is some improvement in aeration. There are chronic changes including cardiomegaly, difficult to exclude pleural effusion with basilar atelectasis versus pneumonia. There may be atelectasis or central scarring, short interval follow-up suggested. 04/05/2019 Patient is more awake and oriented today. Heart rate is controlled and Cardizem drip has been discontinued. Patient is being continued on metoprolol. Recent urine cultures drawn on 03/30/2019 showed Proteus species Patient is ALLERGIC to multiple antibiotics. ID will be consulted. Redness of fever or chills. PT OT will be consulted. Patient does not wish to be discharged to rehab this time. 04/06/2019 Patient denied any complaints of chest pain or shortness of breath. Heart rate is better controlled. Patient was started on amiodarone. Cardiology is following. PT OT is on board. Otherwise currently on antibiotics in the form of aztreonam for urinary tract infection. ID is following. Await final culture reports. Anticipate discharge to rehab in next 24 hours. 04/07/2019 Patient denied any new complaints today. No shortness of breath of chest pain. no leg swelling. Patient will need to follow up with cardiology clinic for adjustment of amiodarone dose. Continue with antibiotic course with aztreonam for 7 more days. Patient is stable to be discharged home today. PHYSICAL EXAMINATION: Patient is lying in the bed comfortably, no acute distress, awake alert and oriented.. HEENT: Normocephalic. Neck is supple. Pupils reactive. Nostrils clear. Oral cavity is moist. Ears reveal no drainage. Neck reveals no JVD, carotid bruits, or thyromegaly. CHEST EXAMINATION: Trachea is central. Symmetrical expansion. Lung douglas clear to auscultation and percussion. CARDIAC: Normal S1, S2 with no gallops. No murmurs . Irregular rate and rhythm ABDOMEN: Soft. Bowel sounds normal. No organomegaly. No abdominal bruits. Extremities: reveal no edema. No clubbing or cyanosis Neurologically awake, alert, oriented x3 with well-coordinated movements. No focal deficits noted Skin: No rash or skin lesions. Psychiatric: Coperative. Nonsuicidal Musculoskeletal: No joint swelling or deformity. Normal range of motion. Vital Signs 04/07/19 04/07/19 04/07/19 08:00 11:29 12:00 Temperature 98.2 F 98.3 F Pulse Rate [ 90 90 85 Right Pulse Oximetery] Respiratory 18 18 18 Rate Blood Pressure 125/66 110/72 [Right Arm Supine] O2 Sat by Pulse 94 L 95 Oximetry Total time taken greater than 35 minutes including 18 minutes for counseling and coordination of care. Patient Condition at Discharge: Fair Plan - Discharge Summary Discharge Rx Participant: No New Discharge Prescriptions: New Amiodarone [Cordarone] 200 mg PO BID tab Metoprolol Tartrate [Lopressor] 50 mg PO TID tab Aztreonam [Azactam] 2 gm IVPB Q12H 7 Days vial Continue Carbidopa-Levodopa 25-100 mg [Sinemet 25-100 mg] 1 tab PO TID Multivitamins, Thera [Multivitamin (formulary)] 1 tab PO DAILY Venlafaxine HCl ER [Effexor XR] 75 mg PO DAILY Thiamine HCl [Vitamin B-1] 100 mg PO DAILY@1200 Ergocalciferol [Vitamin D2 (DRISDOL)] 50,000 unit PO ROSA Ferrous Sulfate [Iron] 325 mg PO DAILY Docusate [Colace] 100 mg PO BID Vit C/E/Zn/Coppr/Lutein/Zeaxan [Preservision Areds 2 Softgel] 1 tab PO DAILY@1700 Fluticasone/Salmeterol [Advair 500-50 Diskus] 1 puff PO RT-BID Atorvastatin Calcium [Lipitor] 10 mg PO HS@2100 Tolterodine Tartrate [Detrol LA] 4 mg PO HS@2100 Magnesium Hydroxide [Milk of Magnesia] 2,400 mg PO DAILY PRN PRN Reason: Constipation Tetrahydrozoline 0.05% Ophth [Visine Eye Drops] 1 drops BOTH EYES TID PRN ml PRN Reason: Eye Irritation Melatonin 1 mg PO HS PRN PRN Reason: Insomnia Ipratropium-Albuterol Nebulize [Duoneb 0.5 mg-3 mg/3 ml Soln] 3 ml INHALATION RT-QID PRN PRN Reason: Shortness Of Breath traZODone HCL 50 mg PO HS Magnesium Oxide [Mag-Ox] 400 mg PO BID Insulin Detemir (Levemir) [Levemir] 14 unit SQ QAM Ammonium Lactate Lotion [Lac-Hydrin 12% Lotion] 1 applic TOPICAL DAILY@1500 Teriparatide [Forteo] 20 mcg SQ DAILY Lactulose [Cephulac] 20 gm PO BID PRN ml PRN Reason: Constipation Acetaminophen Tab [Tylenol] 1,000 mg PO Q6HR PRN PRN Reason: Pain Mag Hydrox/Al Hydrox/Simeth [Maalox] 15 ml PO Q6H PRN PRN Reason: ABDOMINAL DISCOMFORT Loperamide [Imodium] 2 mg PO DAILY PRN PRN Reason: Diarrhea Bisacodyl 10 mg RECTAL DAILY PRN PRN Reason: Constipation INSULIN ASPART (NovoLOG) [NovoLOG (formulary)] See Protocol SQ ACHS INSULIN ASPART (NovoLOG) [NovoLOG (formulary)] 9 unit SQ TID-W/MEALS Famotidine [Pepcid] 20 mg PO DAILY Levothyroxine Sodium 125 mcg PO DAILY Calcium Carbonate/Vitamin D3 [Caltrate 600 Plus D3 Tablet] 1 tab PO DAILY Aspirin 81 mg PO DAILY@1700 Ascorbic Acid [Vitamin C] 500 mg PO DAILY Discontinued Furosemide [Lasix] 20 mg PO BID #60 tab Levocetirizine Dihydrochloride [Xyzal] 5 mg PO DAILY guaiFENesin [guaiFENesin Oral Solution] 200 mg PO Q4H PRN PRN Reason: Cough diphenhydrAMINE HCL [Benadryl] 25 mg PO Q6H PRN PRN Reason: ALLERGIES Metoprolol Tartrate [Lopressor] 50 mg PO BID Discharge Medication List Carbidopa-Levodopa 25-100 mg [Sinemet 25-100 mg] 1 tab PO TID 01/15/16 [History] Multivitamins, Thera [Multivitamin (formulary)] 1 tab PO DAILY 04/28/18 [History] Atorvastatin Calcium [Lipitor] 10 mg PO HS@2100 08/09/18 [History] Docusate [Colace] 100 mg PO BID 08/09/18 [History] Ergocalciferol [Vitamin D2 (DRISDOL)] 50,000 unit PO ROSA 08/09/18 [History] Ferrous Sulfate [Iron] 325 mg PO DAILY 08/09/18 [History] Fluticasone/Salmeterol [Advair 500-50 Diskus] 1 puff PO RT-BID 08/09/18 [History] Thiamine HCl [Vitamin B-1] 100 mg PO DAILY@1200 08/09/18 [History] Tolterodine Tartrate [Detrol LA] 4 mg PO HS@2100 08/09/18 [History] Venlafaxine HCl ER [Effexor XR] 75 mg PO DAILY 08/09/18 [History] Vit C/E/Zn/Coppr/Lutein/Zeaxan [Preservision Areds 2 Softgel] 1 tab PO DAILY@1700 08/09/18 [History] Magnesium Hydroxide [Milk of Magnesia] 2,400 mg PO DAILY PRN 09/12/18 [History] Tetrahydrozoline 0.05% Ophth [Visine Eye Drops] 1 drops BOTH EYES TID PRN ml 09/23/18 [Rx] Ammonium Lactate Lotion [Lac-Hydrin 12% Lotion] 1 applic TOPICAL DAILY@1500 10/24/18 [History] Insulin Detemir (Levemir) [Levemir] 14 unit SQ QAM 10/24/18 [History] Ipratropium-Albuterol Nebulize [Duoneb 0.5 mg-3 mg/3 ml Soln] 3 ml INHALATION RT-QID PRN 10/24/18 [History] Magnesium Oxide [Mag-Ox] 400 mg PO BID 10/24/18 [History] Melatonin 1 mg PO HS PRN 10/24/18 [History] Teriparatide [Forteo] 20 mcg SQ DAILY 10/24/18 [History] traZODone HCL 50 mg PO HS 10/24/18 [History] Lactulose [Cephulac] 20 gm PO BID PRN ml 11/01/18 [Rx] Acetaminophen Tab [Tylenol] 1,000 mg PO Q6HR PRN 04/04/19 [History] Ascorbic Acid [Vitamin C] 500 mg PO DAILY 04/04/19 [History] Aspirin 81 mg PO DAILY@1700 04/04/19 [History] Bisacodyl 10 mg RECTAL DAILY PRN 04/04/19 [History] Calcium Carbonate/Vitamin D3 [Caltrate 600 Plus D3 Tablet] 1 tab PO DAILY 04/04/19 [History] Famotidine [Pepcid] 20 mg PO DAILY 04/04/19 [History] INSULIN ASPART (NovoLOG) [NovoLOG (formulary)] 9 unit SQ TID-W/MEALS 04/04/19 [History] INSULIN ASPART (NovoLOG) [NovoLOG (formulary)] See Protocol SQ ACHS 04/04/19 [History] Levothyroxine Sodium 125 mcg PO DAILY 04/04/19 [History] Loperamide [Imodium] 2 mg PO DAILY PRN 04/04/19 [History] Mag Hydrox/Al Hydrox/Simeth [Maalox] 15 ml PO Q6H PRN 04/04/19 [History] Amiodarone [Cordarone] 200 mg PO BID tab 04/07/19 [Rx] Aztreonam [Azactam] 2 gm IVPB Q12H 7 Days vial 04/07/19 [Rx] Metoprolol Tartrate [Lopressor] 50 mg PO TID tab 04/07/19 [Rx] Follow up Appointment(s)/Referral(s): Naresh Morales DO [Primary Care Provider] - 1-2 days Breana Lamb [NON-STAFF] - As Needed Discharge Disposition: TRANSFER TO SNF/ECF
[2019-04-07] MEDS ORDERED: AZTREONAM 2 GM in SODIUM CHLORIDE 0.9% 100 ML IVPB SCH (16:00)
--- NOTE | 2019-04-07 20:47 | PN ---
PROGRESS NOTE DATE OF SERVICE: 04/07/2019. REASON FOR FOLLOWUP: Proteus mirabilis urinary tract infection with MULTIPLE ANTIBIOTIC ALLERGIES. INTERVAL HISTORY: The patient is currently afebrile. Patient has been breathing comfortably. Denies having any chest pain, cough. No abdominal pain. No diarrhea. PHYSICAL EXAMINATION: Blood pressure 110/72 with a pulse of 85. Temperature 98.3. She is 95% on room air. General description is a middle-aged female lying in bed in no distress. Respiratory system: Unlabored breathing. Clear to auscultation. Heart S1, S2. Regular rate and rhythm. Abdomen soft, no tenderness. LABS: No new labs have been obtained today. Urine has been finalized with Proteus mirabilis sensitive pathogen. DIAGNOSTIC IMPRESSION AND PLAN: Patient with Proteus mirabilis urinary tract infection. The patient does have MULTIPLE ANTIBIOTIC ALLERGIES currently responding to to continue the peripheral IV or the midline to finish a 7 day course of therapy. Continue supportive care. MMODL / IJN: [id number] /
[2019-04-09] MEDS ORDERED: ERGOCALCIFEROL 50,000 UNIT CAP PO SCH (09:00)
== END 2019-04-07 15:51 | DRG 309 ==
LOC: EC 13:44 → 3SCARD 16:29
PROVIDERS: ADMIT Internal Medicine; ATTEND Internal Medicine
PROC: 05HF33Z Insertion of Infusion Device into Left Cephalic Vein, Percutaneous Approach (ICD-10-PCS; principal; 2019-04-07 12:30)
DX: I48.1 Persistent atrial fibrillation (principal); I50.32 Chronic diastolic (congestive) heart failure; K51.90 Ulcerative colitis, unspecified, without complications; N39.0 Urinary tract infection, site not specified; B96.4 Proteus (mirabilis) (morganii) as the cause of diseases classified elsewhere; D86.9 Sarcoidosis, unspecified; E03.9 Hypothyroidism, unspecified; E11.42 Type 2 diabetes mellitus with diabetic polyneuropathy; E78.5 Hyperlipidemia, unspecified; G20 Parkinson's disease; H35.30 Unspecified macular degeneration; H54.8 Legal blindness, as defined in USA; I11.0 Hypertensive heart disease with heart failure; I65.29 Occlusion and stenosis of unspecified carotid artery; J44.9 Chronic obstructive pulmonary disease, unspecified; K21.9 Gastro-esophageal reflux disease without esophagitis; M19.90 Unspecified osteoarthritis, unspecified site; M81.0 Age-related osteoporosis without current pathological fracture; R29.6 Repeated falls; R32 Unspecified urinary incontinence; Z79.4 Long term (current) use of insulin; Z79.82 Long term (current) use of aspirin; Z79.890 Hormone replacement therapy; Z79.899 Other long term (current) drug therapy; Z80.1 Family history of malignant neoplasm of trachea, bronchus and lung; Z85.819 Personal history of malignant neoplasm of unspecified site of lip, oral cavity, and pharynx; Z86.73 Personal history of transient ischemic attack (TIA), and cerebral infarction without residual deficits; Z88.0 Allergy status to penicillin; Z88.1 Allergy status to other antibiotic agents; Z90.710 Acquired absence of both cervix and uterus; Z98.42 Cataract extraction status, left eye; Z98.41 Cataract extraction status, right eye; Z96.1 Presence of intraocular lens; Z88.5 Allergy status to narcotic agent; R26.9 Unspecified abnormalities of gait and mobility
CPT/HCPCS: 36410; 36415; 71045; 71046; 76937; 80048; 80053; 81001; 83735; 84484; 85025; 85027; 85610; 85730; 87077; 87086; 87186; 93005; 94640; 96365; 96366; 99291

== ENCOUNTER 2019-04-13 09:15 | Inpatient (IN) | payer MEDICARE, BC, OTHER ==
[2019-04-13] MEDS ORDERED: IPRATROPIUM-ALBUTEROL 3 ML NEB INHALATION STA (10:17)
--- NOTE | 2019-04-13 10:19 | ED ---
General Adult HPI - General Chief complaint: Shortness of Breath Stated complaint: Dyspnea Time Seen by Provider: 04/13/19 09:46 Source: patient, family, EMS, RN notes reviewed Mode of arrival: EMS Limitations: no limitations - History of Present Illness Initial comments: Patient is a pleasant 74-year-old female presenting to the emergency Department with complaints of dyspnea. Patient is a poor historian and family helps provide history. Patient has been having right-sided chest discomfort and dyspnea for the past several days. Patient does have history of previous COPD and CHF. No leg pain or leg swelling. No significant cough. No fevers. Patient was recently discharged from the hospital secondary to urinary tract infection. Patient does have history of atrial fibrillation however is no longer on anticoagulation secondary to abdominal wall hematoma. Patient states this is near resolved now at this point. - Related Data Home Medications Medication Instructions Recorded Confirmed Carbidopa-Levodopa 25-100 mg 1 tab PO TID 01/15/16 04/13/19 [Sinemet 25-100 mg] Multivitamins, Thera [Multivitamin 1 tab PO DAILY 04/28/18 04/13/19 (formulary)] Atorvastatin Calcium [Lipitor] 10 mg PO HS@2100 08/09/18 04/13/19 Docusate [Colace] 100 mg PO BID@0800,1700 08/09/18 04/13/19 Ergocalciferol [Vitamin D2 50,000 unit PO ROSA 08/09/18 04/13/19 (DRISDOL)] Ferrous Sulfate [Iron] 325 mg PO DAILY 08/09/18 04/13/19 Fluticasone/Salmeterol [Advair 1 puff INHALATION RT-BID 08/09/18 04/13/19 500-50 Diskus] Thiamine HCl [Vitamin B-1] 100 mg PO DAILY@1200 08/09/18 04/13/19 Tolterodine Tartrate [Detrol LA] 4 mg PO HS@2100 08/09/18 04/13/19 Venlafaxine HCl ER [Effexor XR] 75 mg PO DAILY 08/09/18 04/13/19 Vit C/E/Zn/Coppr/Lutein/Zeaxan 1 tab PO DAILY@1700 08/09/18 04/13/19 [Preservision Areds 2 Softgel] Magnesium Hydroxide [Milk of 2,400 mg PO DAILY PRN 09/12/18 04/13/19 Magnesia] Ammonium Lactate Lotion 1 applic TOPICAL DAILY@1500 10/24/18 04/13/19 [Lac-Hydrin 12% Lotion] Insulin Detemir (Levemir) [Levemir] 14 unit SQ DAILY@0800 10/24/18 04/13/19 Ipratropium-Albuterol Nebulize 3 ml INHALATION RT-Q6H PRN 10/24/18 04/13/19 [Duoneb 0.5 mg-3 mg/3 ml Soln] Magnesium Oxide [Mag-Ox] 400 mg PO BID@0800,1700 10/24/18 04/13/19 Melatonin 3 mg PO HS PRN 10/24/18 04/13/19 Teriparatide [Forteo] 20 mcg SQ DAILY 10/24/18 04/13/19 traZODone HCL 50 mg PO HS 10/24/18 04/13/19 Acetaminophen Tab [Tylenol] 1,000 mg PO Q6HR PRN 04/04/19 04/13/19 Ascorbic Acid [Vitamin C] 500 mg PO DAILY 04/04/19 04/13/19 Aspirin 81 mg PO DAILY@1700 04/04/19 04/13/19 Bisacodyl 10 mg RECTAL DAILY PRN 04/04/19 04/13/19 Calcium Carbonate/Vitamin D3 1 tab PO DAILY@1700 04/04/19 04/13/19 [Caltrate 600 Plus D3 Tablet] Famotidine [Pepcid] 10 mg PO DAILY 04/04/19 04/13/19 INSULIN ASPART (NovoLOG) [NovoLOG 9 unit SQ TID-W/MEALS 04/04/19 04/13/19 (formulary)] INSULIN ASPART (NovoLOG) [NovoLOG See Protocol SQ ACHS 04/04/19 04/13/19 (formulary)] Levothyroxine Sodium 125 mcg PO DAILY@0600 04/04/19 04/13/19 Loperamide [Imodium] 2 mg PO DAILY PRN 04/04/19 04/13/19 Mag Hydrox/Al Hydrox/Simeth 15 ml PO Q6H PRN 04/04/19 04/13/19 [Maalox] Albuterol Nebulized [Ventolin 2.5 mg INHALATION RT-Q4H PRN 04/13/19 04/13/19 Nebulized] Amiodarone [Cordarone] 200 mg PO BID@0800,1700 04/13/19 04/13/19 Levocetirizine Dihydrochloride 5 mg PO DAILY PRN 04/13/19 04/13/19 [Xyzal] Na Phos,M-B/Na Phos,Di-Ba [Fleet 133 ml RECTAL DAILY PRN 04/13/19 04/13/19 Adult] guaiFENesin [guaiFENesin Oral 100 mg PO Q4H PRN 04/13/19 04/13/19 Solution] Previous Rx's Medication Instructions Recorded Tetrahydrozoline 0.05% Ophth 1 drops BOTH EYES TID PRN ml 09/23/18 [Visine Eye Drops] Lactulose [Cephulac] 20 gm PO BID PRN ml 11/01/18 Aztreonam [Azactam] 2 gm IVPB Q12H 7 Days vial 04/07/19 Metoprolol Tartrate [Lopressor] 50 mg PO TID tab 04/07/19 Allergies Allergy/AdvReac Type Severity Reaction Status Date / Time cefdinir Allergy Severe Swelling Verified 04/13/19 09:31 Cephalosporins Allergy Unknown Verified 04/13/19 09:31 codeine Allergy Unknown Verified 04/13/19 09:31 doxycycline Allergy Nausea & Verified 04/13/19 09:31 Vomiting erythromycin base Allergy Nausea & Verified 04/13/19 09:31 Vomiting & Diarrhea/RASH Penicillins Allergy Rash/Hives Verified 04/13/19 09:31 trimethoprim [From Bactrim] Allergy Unknown Verified 04/13/19 09:31 azithromycin AdvReac Nausea & Verified 04/13/19 09:31 Vomiting hydrochlorothiazide AdvReac Nausea & Verified 04/13/19 09:31 [From Dyazide] Vomiting levofloxacin [From Levaquin] AdvReac Abdominal Verified 04/13/19 09:31 Pain moxifloxacin HCl AdvReac Unknown Verified 04/13/19 09:31 [From Avelox] sulfamethoxazole AdvReac Nausea & Verified 04/13/19 09:31 [From Bactrim] Vomiting & Diarrhea triamterene [From Dyazide] AdvReac Nausea & Verified 04/13/19 09:31 Vomiting Review of Systems ROS Statement: Those systems with pertinent positive or pertinent negative responses have been documented in the HPI. ROS Other: All systems not noted in ROS Statement are negative. Constitutional: Denies: fever Eyes: Denies: eye pain ENT: Denies: ear pain Respiratory: Reports: dyspnea. Denies: cough Cardiovascular: Denies: chest pain Endocrine: Denies: fatigue Gastrointestinal: Denies: abdominal pain Genitourinary: Denies: dysuria Musculoskeletal: Denies: back pain Skin: Denies: rash Neurological: Denies: headache 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, multiple drug allergies - some reactions severe, parkinsons, short term memory problems at times, L eye ocular stroke-legally blind, macular degeneration bilaterally, hypothyroid, DJD, DDD, several past fractures d/t falls, frequent falls, gait dysfunction, IBS, ulcerative colitis, acute renal failure, UTIs, 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incont of urien -has idc that was changed in er 10-24-18 History of Any Multi-Drug Resistant Organisms: VRE Date of last positivie culture/infection: 08/18/13 [facility] MDRO Source:: Urine Past Surgical History: Appendectomy, Breast Surgery, Section, Cholecystectomy, Hysterectomy, Orthopedic Surgery Additional Past Surgical History / Comment(s): Debridements R lower leg, L side tongue benign lesion, 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, R shoulder fracture with surgical repair, L elbow ORIF hardware since removed, L hand fracture with surgical repair, bilateral breast benign bxs and reductions, D&C, EGD, colonoscopies, hemorrhoidectomy, bilateral cataract removals with lens implants.picc line"told it's not accessible" Past Anesthesia/Blood Transfusion Reactions: No Reported Reaction Additional Past Anesthesia/Blood Transfusion Reaction / Comment(s): CLAUSTERPHOBIA Past Psychological History: Anxiety Smoking Status: Never smoker - Past Family History Father Family Medical History: Cancer, Prostate Disorder Additional Family Medical History / Comment(s): PROSTATE CA, HERNIA SX BACK SX Mother Family Medical History: Cancer Additional Family Medical History / Comment(s): Mother is . Mother had lung cancer. She was a smoker. General Exam Limitations: no limitations General appearance: alert, in no apparent distress Head exam: Present: atraumatic Eye exam: Present: normal appearance, PERRL ENT exam: Present: normal oropharynx Neck exam: Present: normal inspection Respiratory exam: Present: wheezes, decreased breath sounds Cardiovascular Exam: Present: regular rate, irregular rhythm Expanded Peripheral pulses: 2+: Dorsalis Pedis (R), Dorsalis Pedis (L) GI/Abdominal exam: Present: soft. Absent: tenderness Extremities exam: Present: normal inspection. Absent: pedal edema, calf tenderness Back exam: Present: normal inspection Neurological exam: Present: alert Psychiatric exam: Present: normal affect, normal mood Skin exam: Present: normal color Course Vital Signs 04/13/19 04/13/19 04/13/19 09:17 10:54 11:04 Temperature 98.2 F Pulse Rate 91 95 94 Respiratory 17 Rate Blood Pressure 145/94 O2 Sat by Pulse 100 Oximetry EKG Findings - EKG Comments: EKG Findings:: A. fib with rate of 90. QRS 1:30. QT 370. QTc 452. Left axis. Right bundle branch block. No acute ST change. Medical Decision Making - Medical Decision Making Patient and family updated. Case was discussed with Dr. Plascencia, who will admit covering for Dr. Odonnell. - Lab Data Result diagrams: 04/13/19 11:17 04/13/19 11:17 Lab Results 04/13/19 04/13/19 04/13/19 Range/Units 11:17 11:17 11:17 WBC 4.4 (3.8-10.6) k/uL RBC 2.93 L (3.80-5.40) m/uL Hgb 10.3 L (11.4-16.0) gm/dL Hct 31.0 L (34.0-46.0) % MCV 105.8 H (80.0-100.0) fL MCH 35.0 (25.0-35.0) pg MCHC 33.1 (31.0-37.0) g/dL RDW 15.3 (11.5-15.5) % Plt Count 110 L (150-450) k/uL Neutrophils % 73 % Lymphocytes % 14 % Monocytes % 5 % Eosinophils % 5 % Basophils % 1 % Neutrophils # 3.2 (1.3-7.7) k/uL Lymphocytes # 0.6 L (1.0-4.8) k/uL Monocytes # 0.2 (0-1.0) k/uL Eosinophils # 0.2 (0-0.7) k/uL Basophils # 0.0 (0-0.2) k/uL Macrocytosis Moderate PT 12.3 H (9.0-12.0) sec INR 1.2 H (<1.2) APTT 22.3 (22.0-30.0) sec Sodium 135 L (137-145) mmol/L Potassium 4.5 (3.5-5.1) mmol/L Chloride 102 (98-107) mmol/L Carbon Dioxide 24 (22-30) mmol/L Anion Gap 9 mmol/L BUN 26 H (7-17) mg/dL Creatinine 0.70 (0.52-1.04) mg/dL Est GFR (CKD-EPI)AfAm >90 (>60 ml/min/1.73 sqM) Est GFR (CKD-EPI)NonAf 84 (>60 ml/min/1.73 sqM) Glucose 100 H (74-99) mg/dL Calcium 10.0 (8.4-10.2) mg/dL Total Bilirubin 0.6 (0.2-1.3) mg/dL AST 33 (14-36) U/L ALT 19 (9-52) U/L Alkaline Phosphatase 89 (38-126) U/L Creatine Kinase 23 L (30-135) U/L Troponin I (0.000-0.034) ng/mL NT-Pro-B Natriuret Pep pg/mL Total Protein 7.0 (6.3-8.2) g/dL Albumin 3.9 (3.5-5.0) g/dL 04/13/19 04/13/19 Range/Units 11:17 11:17 WBC (3.8-10.6) k/uL RBC (3.80-5.40) m/uL Hgb (11.4-16.0) gm/dL Hct (34.0-46.0) % MCV (80.0-100.0) fL MCH (25.0-35.0) pg MCHC (31.0-37.0) g/dL RDW (11.5-15.5) % Plt Count (150-450) k/uL Neutrophils % % Lymphocytes % % Monocytes % % Eosinophils % % Basophils % % Neutrophils # (1.3-7.7) k/uL Lymphocytes # (1.0-4.8) k/uL Monocytes # (0-1.0) k/uL Eosinophils # (0-0.7) k/uL Basophils # (0-0.2) k/uL Macrocytosis PT (9.0-12.0) sec INR (<1.2) APTT (22.0-30.0) sec Sodium (137-145) mmol/L Potassium (3.5-5.1) mmol/L Chloride (98-107) mmol/L Carbon Dioxide (22-30) mmol/L Anion Gap mmol/L BUN (7-17) mg/dL Creatinine (0.52-1.04) mg/dL Est GFR (CKD-EPI)AfAm (>60 ml/min/1.73 sqM) Est GFR (CKD-EPI)NonAf (>60 ml/min/1.73 sqM) Glucose (74-99) mg/dL Calcium (8.4-10.2) mg/dL Total Bilirubin (0.2-1.3) mg/dL AST (14-36) U/L ALT (9-52) U/L Alkaline Phosphatase (38-126) U/L Creatine Kinase (30-135) U/L Troponin I <0.012 (0.000-0.034) ng/mL NT-Pro-B Natriuret Pep 7270 pg/mL Total Protein (6.3-8.2) g/dL Albumin (3.5-5.0) g/dL - Radiology Data Radiology results: report reviewed (Computed tomography scan of the chest is somewhat limited. No central pulmonary embolism. There is bilateral pleural effusions and consolidation, correlate for CHF.) Disposition Clinical Impression: CHF (congestive heart failure), Chest pain Disposition: ADMITTED IP TO THIS HOSP Is patient prescribed a controlled substance at d/c from ED?: No Referrals: Maximus Odonnell III, MD [Primary Care Provider] - 1-2 days Decision Time: 13:24
[2019-04-13 11:45] LABS: Basophils % (A) 1 %; Eosinophils # (A) 0.2 k/uL (0-0.7); Eosinophils % (A) 5 %; HGB 10.3 gm/dL (11.4-16.0); Lymphocytes # (A) 0.6 k/uL (1.0-4.8); Lymphocytes % (A) 14 %; MCHC 33.1 g/dL (31.0-37.0); MCV 105.8 fL (80.0-100.0); Macrocytosis Moderate; Monocytes # (A) 0.2 k/uL (0-1.0); Monocytes % (A) 5 %; Neutrophils # (A) 3.2 k/uL (1.3-7.7); Neutrophils % (A) 73 %; Platelet Count 110 k/uL (150-450); RBC 2.93 m/uL (3.80-5.40); RDW 15.3 % (11.5-15.5); WBC 4.4 k/uL (3.8-10.6)
[2019-04-13 11:57] LABS: INR 1.2 (<1.2); Partial Thromboplastin Time 22.3 sec (22.0-30.0); Prothrombin Time 12.3 sec (9.0-12.0)
[2019-04-13 12:08] LABS: ALT 19 U/L (9-52); AST 33 U/L (14-36); African American GFR (CKD) >90 (>60 ml/min/1.73 sqM); Albumin 3.9 g/dL (3.5-5.0); Alkaline Phosphatase 89 U/L (38-126); Anion Gap 9 mmol/L; Blood Urea Nitrogen 26 mg/dL (7-17); Carbon Dioxide 24 mmol/L (22-30); Chloride 102 mmol/L (98-107); Creatine Kinase 23 U/L (30-135); Glucose 100 mg/dL (74-99); Potassium 4.5 mmol/L (3.5-5.1); Sodium 135 mmol/L (137-145); Total Bilirubin 0.6 mg/dL (0.2-1.3)
--- NOTE | 2019-04-13 13:12 | CT ---
EXAMINATION TYPE: CT angio chest DATE OF EXAM: 04/13/2019 12:42 PM COMPARISON: Chest x-ray 04/05/2019 HISTORY: Chest pain with shortness of breath CT DLP: 352.2 mGycm Automated exposure control for dose reduction was used. CONTRAST: CTA scan of the thorax is performed with IV Contrast, patient injected with 100 mL of Isovue 370, pul monary embolism protocol. . FINDINGS: LUNGS: Bilateral consolidation and sizable pleural effusions. Exam severely limited due to artifact. No pneumothorax. MEDIASTINUM: Calcified lymph nodes in the hilum and mediastinum are noted. Artifact severely limits a ssessment of the vasculature. Atherosclerotic change of the aorta. Coronary vessel atherosclerotic ch anges noted. The heart is enlarged. Assessment of the pulmonary arteries is limited due to the amount of artifact. No obvious central pulmonary embolism. OTHER: Correlate for anasarca. Liver is slightly lobulated in contour correlate with liver function test assess for cirrhosis. Localized demineralization the vertebral body on the left on the final dewayne ge of exam 151. This could be related to partial volume averaging. Correlate with MRI if there is con cern for bone lesion. IMPRESSION: 1. Markedly Limited exam demonstrates sizable bilateral pleural effusions and consolidation correlate for CHF. 2. No central pulmonary embolism. Distal branches are limited by artifact. 3. Correlate for hepatic cirrhosis. 4. See above regarding thoracolumbar junction.
[2019-04-13] MEDS ORDERED: ASPIRIN 325 MG TAB PO STA (13:24)
[2019-04-13] MEDS ORDERED: NITROGLYCERIN OINT 1 INCH/GM PACKET TOPICAL SCH (13:30)
[2019-04-13] MEDS ORDERED: TETRAHYDROZOLINE 0.05% OPHTH DROPS 15 ML BTL BOTH EYES PRN (14:25)
[2019-04-13] MEDS ORDERED: MAGNESIUM HYDROXIDE 2,400 MG/10 ML CUP PO PRN (14:25)
[2019-04-13] MEDS ORDERED: LACTULOSE 20 GM/30 ML CUP PO PRN (14:25)
[2019-04-13] MEDS ORDERED: LORATADINE 10 MG TAB PO PRN (14:25)
[2019-04-13] MEDS ORDERED: NA PHOS,M-B/NA PHOS,DI-BA 133 ML ENEMA RECTAL PRN (14:25)
[2019-04-13] MEDS ORDERED: MELATONIN 3 MG TABLET PO PRN (14:25)
[2019-04-13] MEDS ORDERED: guaiFENesin SYRUP 100MG/5ML 200 MG/10 ML CUP PO PRN (14:25)
[2019-04-13] MEDS ORDERED: MAG HYDROX/AL HYDROX/SIMETH 30 ML CUP PO PRN (14:25)
[2019-04-13] MEDS ORDERED: BISACODYL 10 MG SUPP RECTAL PRN (14:25)
[2019-04-13] MEDS ORDERED: AZTREONAM 2 GM VIAL IVPB SCH (14:30)
--- NOTE | 2019-04-13 14:50 | P.HPIM ---
History of Present Illness Patient is a pleasant 74-year-old female came in with compensative functions of breath denied any syncope and orthopnea proximal nocturnal dyspnea patient is comparing of chest pain on the right side appears to be musculoskeletal severe does not increase with deep breathing denied any night sweats denied any fever chills denied any significant cough. Patient has multiple hospital physician multiple other medical problems does have history of COPD no not wheezing at this time does have history of congestive heart failure chronic diastolic dysfunction patient had a CAT scan of the chest which showed bilateral pleural effusions with elevated BNP of 4 7000. Patient ejection fraction is within normal limits in the past does have moderate pulmonary hypertension concentrate left ventricular hypertrophy chronic diastolic dysfunction. Patient also has mild infiltrate with minimally bronchogram on the right middle lung douglas. Patient is already receiving Azetreonam. Review of Systems REVIEW OF SYSTEMS: CONSTITUTIONAL: No fever, no malaise, no fatigue. HEENT: No recent visual problems or hearing problems. Denied any sore throat. CARDIOVASCULAR: No orthopnea, PND, no palpitations, no syncope. PULMONARY: As mentioned in HPI GASTROINTESTINAL: No diarrhea, no nausea, no vomiting, no abdominal pain. NEUROLOGICAL: No headaches, no weakness, no numbness. HEMATOLOGICAL: Denies any bleeding or petechiae. GENITOURINARY: Denies any burning micturition, frequency, or urgency. MUSCULOSKELETAL/RHEUMATOLOGICAL: Denies any joint pain, swelling, or any muscle pain. ENDOCRINE: Denies any polyuria or polydipsia. The rest of the 14-point review of systems is negative. 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, multiple drug allergies - some reactions severe, parkinsons, short term memory problems at times, L eye ocular stroke-legally blind, macular degeneration bilaterally, hypothyroid, DJD, DDD, several past fractures d/t falls, frequent falls, gait dysfunction, IBS, ulcerative colitis, acute renal failure, UTIs, 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incont of urien -has idc that was changed in er 10-24-18 History of Any Multi-Drug Resistant Organisms: VRE Date of last positivie culture/infection: 08/18/13 [facility] MDRO Source:: Urine Past Surgical History: Appendectomy, Breast Surgery, Section, Cholecystectomy, Hysterectomy, Orthopedic Surgery Additional Past Surgical History / Comment(s): Debridements R lower leg, L side tongue benign lesion, 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, R shoulder fracture with surgical repair, L elbow ORIF hardware since removed, L hand fracture with surgical repair, bilateral breast benign bxs and reductions, D&C, EGD, colonoscopies, hemorrhoidectomy, bilateral cataract removals with lens implants.picc line"told it's not accessible" Past Anesthesia/Blood Transfusion Reactions: No Reported Reaction Additional Past Anesthesia/Blood Transfusion Reaction / Comment(s): CLAUSTERPHOBIA Past Psychological History: Anxiety Smoking Status: Never smoker - Past Family History Father Family Medical History: Cancer, Prostate Disorder Additional Family Medical History / Comment(s): PROSTATE CA, HERNIA SX BACK SX Mother Family Medical History: Cancer Additional Family Medical History / Comment(s): Mother is . Mother had lung cancer. She was a smoker. Medications and Allergies Home Medications Medication Instructions Recorded Confirmed Type Carbidopa-Levodopa 25-100 mg 1 tab PO TID 01/15/16 04/13/19 History [Sinemet 25-100 mg] Multivitamins, Thera [Multivitamin 1 tab PO DAILY 04/28/18 04/13/19 History (formulary)] Atorvastatin Calcium [Lipitor] 10 mg PO HS@2100 08/09/18 04/13/19 History Docusate [Colace] 100 mg PO BID@0800,1700 08/09/18 04/13/19 History Ergocalciferol [Vitamin D2 50,000 unit PO ROSA 08/09/18 04/13/19 History (DRISDOL)] Ferrous Sulfate [Iron] 325 mg PO DAILY 08/09/18 04/13/19 History Fluticasone/Salmeterol [Advair 1 puff INHALATION RT-BID 08/09/18 04/13/19 History 500-50 Diskus] Thiamine HCl [Vitamin B-1] 100 mg PO DAILY@1200 08/09/18 04/13/19 History Tolterodine Tartrate [Detrol LA] 4 mg PO HS@2100 08/09/18 04/13/19 History Venlafaxine HCl ER [Effexor XR] 75 mg PO DAILY 08/09/18 04/13/19 History Vit C/E/Zn/Coppr/Lutein/Zeaxan 1 tab PO DAILY@1700 08/09/18 04/13/19 History [Preservision Areds 2 Softgel] Magnesium Hydroxide [Milk of 2,400 mg PO DAILY PRN 09/12/18 04/13/19 History Magnesia] Tetrahydrozoline 0.05% Ophth 1 drops BOTH EYES TID PRN ml 09/23/18 04/13/19 Rx [Visine Eye Drops] Ammonium Lactate Lotion 1 applic TOPICAL DAILY@1500 10/24/18 04/13/19 History [Lac-Hydrin 12% Lotion] Insulin Detemir (Levemir) [Levemir] 14 unit SQ DAILY@0800 10/24/18 04/13/19 History Ipratropium-Albuterol Nebulize 3 ml INHALATION RT-Q6H PRN 10/24/18 04/13/19 History [Duoneb 0.5 mg-3 mg/3 ml Soln] Magnesium Oxide [Mag-Ox] 400 mg PO BID@0800,1700 10/24/18 04/13/19 History Melatonin 3 mg PO HS PRN 10/24/18 04/13/19 History Teriparatide [Forteo] 20 mcg SQ DAILY 10/24/18 04/13/19 History traZODone HCL 50 mg PO HS 10/24/18 04/13/19 History Lactulose [Cephulac] 20 gm PO BID PRN ml 11/01/18 04/13/19 Rx Acetaminophen Tab [Tylenol] 1,000 mg PO Q6HR PRN 04/04/19 04/13/19 History Ascorbic Acid [Vitamin C] 500 mg PO DAILY 04/04/19 04/13/19 History Aspirin 81 mg PO DAILY@1700 04/04/19 04/13/19 History Bisacodyl 10 mg RECTAL DAILY PRN 04/04/19 04/13/19 History Calcium Carbonate/Vitamin D3 1 tab PO DAILY@1700 04/04/19 04/13/19 History [Caltrate 600 Plus D3 Tablet] Famotidine [Pepcid] 10 mg PO DAILY 04/04/19 04/13/19 History INSULIN ASPART (NovoLOG) [NovoLOG 9 unit SQ TID-W/MEALS 04/04/19 04/13/19 History (formulary)] INSULIN ASPART (NovoLOG) [NovoLOG See Protocol SQ ACHS 04/04/19 04/13/19 History (formulary)] Levothyroxine Sodium 125 mcg PO DAILY@0600 04/04/19 04/13/19 History Loperamide [Imodium] 2 mg PO DAILY PRN 04/04/19 04/13/19 History Mag Hydrox/Al Hydrox/Simeth 15 ml PO Q6H PRN 04/04/19 04/13/19 History [Maalox] Aztreonam [Azactam] 2 gm IVPB Q12H 7 Days vial 04/07/19 04/13/19 Rx Metoprolol Tartrate [Lopressor] 50 mg PO TID tab 04/07/19 04/13/19 Rx Albuterol Nebulized [Ventolin 2.5 mg INHALATION RT-Q4H PRN 04/13/19 04/13/19 History Nebulized] Amiodarone [Cordarone] 200 mg PO BID@0800,1700 04/13/19 04/13/19 History Levocetirizine Dihydrochloride 5 mg PO DAILY PRN 04/13/19 04/13/19 History [Xyzal] Na Phos,M-B/Na Phos,Di-Ba [Fleet 133 ml RECTAL DAILY PRN 04/13/19 04/13/19 History Adult] guaiFENesin [guaiFENesin Oral 100 mg PO Q4H PRN 04/13/19 04/13/19 History Solution] Allergies Allergy/AdvReac Type Severity Reaction Status Date / Time cefdinir Allergy Severe Swelling Verified 04/13/19 09:31 Cephalosporins Allergy Unknown Verified 04/13/19 09:31 codeine Allergy Unknown Verified 04/13/19 09:31 doxycycline Allergy Nausea & Verified 04/13/19 09:31 Vomiting erythromycin base Allergy Nausea & Verified 04/13/19 09:31 Vomiting & Diarrhea/RASH Penicillins Allergy Rash/Hives Verified 04/13/19 09:31 trimethoprim [From Bactrim] Allergy Unknown Verified 04/13/19 09:31 azithromycin AdvReac Nausea & Verified 04/13/19 09:31 Vomiting hydrochlorothiazide AdvReac Nausea & Verified 04/13/19 09:31 [From Dyazide] Vomiting levofloxacin [From Levaquin] AdvReac Abdominal Verified 04/13/19 09:31 Pain moxifloxacin HCl AdvReac Unknown Verified 04/13/19 09:31 [From Avelox] sulfamethoxazole AdvReac Nausea & Verified 04/13/19 09:31 [From Bactrim] Vomiting & Diarrhea triamterene [From Dyazide] AdvReac Nausea & Verified 04/13/19 09:31 Vomiting Physical Exam Vitals: Vital Signs Temp Pulse Resp BP Pulse Ox 04/13/19 11:04 94 04/13/19 10:54 95 04/13/19 09:17 98.2 F 91 17 145/94 100 Intake and Output 04/12/19 04/13/19 04/13/19 22:59 06:59 14:59 Other: Weight 62.142 kg PHYSICAL EXAMINATION: GENERAL: The patient is alert and oriented x3, not in any acute distress. Well developed, well nourished. Does have tremor which appears to be chronic and secondary to Parkinson's HEENT: Pupils are round and equally reacting to light. EOMI. No scleral icterus. No conjunctival pallor. Normocephalic, atraumatic. No pharyngeal erythema. No thyromegaly. CARDIOVASCULAR: S1 and S2 present. No murmurs, rubs, or gallops. PULMONARY: Chest is clear to auscultation, no wheezing or crackles. ABDOMEN: Soft, nontender, nondistended, normoactive bowel sounds. No palpable organomegaly. MUSCULOSKELETAL: No joint swelling or deformity. EXTREMITIES: No cyanosis, clubbing, or pedal edema. NEUROLOGICAL: Gross neurological examination did not reveal any focal deficits. SKIN: No rashes. Results CBC & Chem 7: 04/13/19 11:17 04/13/19 11:17 Labs: Abnormal Lab Results - Last 24 Hours (Table) 04/13/19 04/13/19 04/13/19 Range/Units 11:17 11:17 11:17 RBC 2.93 L (3.80-5.40) m/uL Hgb 10.3 L (11.4-16.0) gm/dL Hct 31.0 L (34.0-46.0) % MCV 105.8 H (80.0-100.0) fL Plt Count 110 L (150-450) k/uL Lymphocytes # 0.6 L (1.0-4.8) k/uL PT 12.3 H (9.0-12.0) sec INR 1.2 H (<1.2) Sodium 135 L (137-145) mmol/L BUN 26 H (7-17) mg/dL Glucose 100 H (74-99) mg/dL Creatine Kinase 23 L (30-135) U/L Assessment and Plan Plan: -Shortness of breath, chest pain: We'll rule out a concurrent syndromes or numbness of breath may be related to heart failure chronic congestive chronic diastolic dysfunction with acute exacerbation patient was started on IV Lasix 40 mg twice a day cardiology was consulted. Chest pain appears to be secondary to musculoskeletal:. We'll get to 2 more sets of troponins and EKGs. -Possibility of pneumonia on the right middle lobe which cannot be ruled out there is a mild infiltrate with air bronchogram, pulmonology was consult and patient is already in antibiotics with for has recent UTI these antibiotics will be continued also get infectious disease his opinion as well. Patient doesn't have any significant cough no fever or leukocytosis. -Moderate pulmonary hypertension -COPD without any significant exacerbation patient will be resumed on her inhalational treatments will not require any systemic steroids at this time -Atrial fibrillation presently rate controlled sinus rhythm: Continue her home regimen anticoagulation -Type 2 diabetes mellitus patient will be resumed on her home regimen titrate the blood sugars recommending depending on the blood sugars readings here -Gastroesophageal reflux disease -Hypertension next and 11 hyperlipidemia Hypothyroidism -Parkinson's patient will be resumed on her home medications for there is a above-mentioned medical problems patient had multiple hospitalizations in the past
[2019-04-13] MEDS: CARBIDOPA-LEVODOPA 25-100 MG 1 EACH TAB PO SCH ×2 (15:45→20:42)
[2019-04-13] MEDS: AMIODARONE 200 MG TAB PO SCH (15:45)
--- NOTE | 2019-04-13 15:46 | P.CRDCN ---
History of Present Illness History of present illness: This is a pleasant 74 showed female past medical history significant for paroxysmal atrial fibrillation on long-term anticoagulation secondary to frequent falls causing abdominal hematoma earlier this year, hypertension, dyslipidemia, COPD, asthma, chronic diastolic heart failure, diabetes mellitus, hypothyroidism and gastroesophageal reflux disease. She follows in the office w maegan Rivera. We have been asked to see her in consultation secondary to shortness of breath. The patient and her state that she was discharged from the hospital on Wednesday of last week secondary to atrial fibrillation with rapid ventricular response. She lives at [facility] and approximately 2 days after being discharged she started feeling short of breath. Her breathing treatments were increased and she was started on empiric antibiotics. Over the course of the previous few days her breathing has gotten worse day by day with no real improvement with the antibiotics and breathing treatments. She states she also is having significant right anterior chest wall pain with deep breathing and cough. She states she is coughing up significant amount of sputum however she is swallowing and not sure of the color. She also describes orthopnea which is new for her. EKG reveals atrial fibrillation, right bundle branch block left anterior fascicular block heart rate is 90. Chest CT angiogram the markedly limited exam revealing sizable bilateral pleural effusions, no evidence of PE possible anasarca. Laboratory data reviewed, NT proBNP over 7000, WBC 4.4, hemoglobin 10.3, platelets 110, INR 1.2, sodium 135, potassium 4.5, creatinine 0.7, troponin negative 1. Current cardiac medications include amiodarone 200 mg twice a day, aspirin 81 mg daily, atorvastatin 10 mg daily, Lopressor 50 mg 3 times a day. Most recent echocardiogram in September 2018 reveals preserved LV systolic function with ejection fraction 60-65%, mild aortic valve sclerosis with a mean gradient of 5 mmHg, mild mitral regurgitation with a mean gradient across the mitral valve is 5 mmHg moderate tricuspid regurgitation and [id number] pulmonary hypertension with RVSP 45 mmHg. At the time of my exam: CONSTITUTIONAL: Denies fever. Denies chills. EYES: Denies blurred vision. Denies vision changes. Denies eye pain. EARS, NOSE, MOUTH & THROAT: Denies headache. Denies sore throat. Denies ear pain. CARDIOVASCULAR: Complains of pleuritic right-sided chest pain. Complains of shortness of breath. Complains of orthopnea. Denies PND. Denies palpitations. RESPIRATORY: Denies cough. GASTROINTESTINAL: Denies abdominal pain. Denies diarrhea. Denies constipation. Denies nausea. Denies vomiting. MUSCULOSKELETAL: Denies myalgias. INTEGUMENTARY: Denies pruitis. Denies rash. NEUROLOGIC: Denies numbness. Denies tingling. Denies weakness. PSYCHIATRIC: Denies anxiety. Denies depression. ENDOCRINE: Denies fatigue. Denies weight change. Denies polydipsia. Denies polyurina. GENITOURINARY: Denies burning, hematuria or urgency with micturation. HEMATOLOGIC: Denies history of anemia. Denies bleeding. Blood pressure 155/82 heart rate 95 afebrile maintaining oxygen saturation on nasal cannula GENERAL: This is a 74-year-old female in no apparent distress at the time of my examination. HEENT: Head is atraumatic, normocephalic. Pupils are equal, round. Sclerae anicteric. Conjunctivae are clear. Mucous membranes of the mouth are moist. Neck is supple. There is no jugular venous distention. No carotid bruit is heard. LUNGS: Severely diminished bilateral bases, bibasilar rales, no rhonchi or wheezes. No chest wall tenderness is noted on palpation or with deep breathing. HEART: Irregular rate and rhythm with systolic ejection murmur at the base and left sternal border, no rubs or gallops. S1 and S2 heard. ABDOMEN: Soft, nontender. Bowel sounds are heard. No organomegaly noted. EXTREMITIES: Bilateral lower extremity 1+ pitting edema left greater than right. No calf tenderness noted. VASCULAR: Radial and dorsalis pedis pulses palpated, no evidence of clubbing. NEUROLOGIC: Patient is awake, alert and oriented x3. ASSESSMENT Acute on chronic diastolic heart failure Bilateral pleural effusions Paroxysmal atrial fibrillation on long-term anticoagulation Hypertension Dyslipidemia COPD Diabetes mellitus PLAN Continue IV diuresis. Obtain bilateral chest ultrasound to assess the size of the pleural effusions. Document accurate intake and output along with daily weights. Follow kidney function and electrolytes in the morning. Discontinue Nitropaste. Repeat echocardiogram to assess cardiac structure and function. Check d-dimer, if abnormal will obtain doppler of left lower extremity. Recommend full admission to the hospital. Thank you kindly for this consultation. Nurse Practitioner note has been reviewed, I agree with a documented findings and plan of care. Patient was seen and examined. 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, multiple drug allergies - some reactions severe, parkinsons, short term memory problems at times, L eye ocular stroke-legally blind, macular dege neration bilaterally, hypothyroid, DJD, DDD, several past fractures d/t falls, frequent falls, gait dysfunction, IBS, ulcerative colitis, acute renal failure, UTIs, 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incont of urien -has idc that was changed in er 10-24-18 History of Any Multi-Drug Resistant Organisms: VRE Date of last positivie culture/infection: 08/18/13 [facility] MDRO Source:: Urine Past Surgical History: Appendectomy, Breast Surgery, Section, Cholecystectomy, Hysterectomy, Orthopedic Surgery Additional Past Surgical History / Comment(s): Debridements R lower leg, L side tongue benign lesion, 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, R shoulder fracture with surgical repair, L elbow ORIF hardware since removed, L hand fracture with surgical repair, bilateral breast benign bxs and reductions, D&C, EGD, colonoscopies, hemorrhoidectomy, bilateral cataract removals with lens implants.picc line"told it's not accessible" Past Anesthesia/Blood Transfusion Reactions: No Reported Reaction Additional Past Anesthesia/Blood Transfusion Reaction / Comment(s): CLAUSTERPHOBIA Past Psychological History: Anxiety Smoking Status: Never smoker - Past Family History Father Family Medical History: Cancer, Prostate Disorder Additional Family Medical History / Comment(s): PROSTATE CA, HERNIA SX BACK SX Mother Family Medical History: Cancer Additional Family Medical History / Comment(s): Mother is . Mother had lung cancer. She was a smoker. Medications and Allergies Home Medications Medication Instructions Recorded Confirmed Type Carbidopa-Levodopa 25-100 mg 1 tab PO TID 01/15/16 04/13/19 History [Sinemet 25-100 mg] Multivitamins, Thera [Multivitamin 1 tab PO DAILY 04/28/18 04/13/19 History (formulary)] Atorvastatin Calcium [Lipitor] 10 mg PO HS@2100 08/09/18 04/13/19 History Docusate [Colace] 100 mg PO BID@0800,1700 08/09/18 04/13/19 History Ergocalciferol [Vitamin D2 50,000 unit PO ROSA 08/09/18 04/13/19 History (DRISDOL)] Ferrous Sulfate [Iron] 325 mg PO DAILY 08/09/18 04/13/19 History Fluticasone/Salmeterol [Advair 1 puff INHALATION RT-BID 08/09/18 04/13/19 History 500-50 Diskus] Thiamine HCl [Vitamin B-1] 100 mg PO DAILY@1200 08/09/18 04/13/19 History Tolterodine Tartrate [Detrol LA] 4 mg PO HS@2100 08/09/18 04/13/19 History Venlafaxine HCl ER [Effexor XR] 75 mg PO DAILY 08/09/18 04/13/19 History Vit C/E/Zn/Coppr/Lutein/Zeaxan 1 tab PO DAILY@1700 08/09/18 04/13/19 History [Preservision Areds 2 Softgel] Magnesium Hydroxide [Milk of 2,400 mg PO DAILY PRN 09/12/18 04/13/19 History Magnesia] Tetrahydrozoline 0.05% Ophth 1 drops BOTH EYES TID PRN ml 09/23/18 04/13/19 Rx [Visine Eye Drops] Ammonium Lactate Lotion 1 applic TOPICAL DAILY@1500 10/24/18 04/13/19 History [Lac-Hydrin 12% Lotion] Insulin Detemir (Levemir) [Levemir] 14 unit SQ DAILY@0800 10/24/18 04/13/19 History Ipratropium-Albuterol Nebulize 3 ml INHALATION RT-Q6H PRN 10/24/18 04/13/19 History [Duoneb 0.5 mg-3 mg/3 ml Soln] Magnesium Oxide [Mag-Ox] 400 mg PO BID@0800,1700 10/24/18 04/13/19 History Melatonin 3 mg PO HS PRN 10/24/18 04/13/19 History Teriparatide [Forteo] 20 mcg SQ DAILY 10/24/18 04/13/19 History traZODone HCL 50 mg PO HS 10/24/18 04/13/19 History Lactulose [Cephulac] 20 gm PO BID PRN ml 11/01/18 04/13/19 Rx Acetaminophen Tab [Tylenol] 1,000 mg PO Q6HR PRN 04/04/19 04/13/19 History Ascorbic Acid [Vitamin C] 500 mg PO DAILY 04/04/19 04/13/19 History Aspirin 81 mg PO DAILY@1700 04/04/19 04/13/19 History Bisacodyl 10 mg RECTAL DAILY PRN 04/04/19 04/13/19 History Calcium Carbonate/Vitamin D3 1 tab PO DAILY@1700 04/04/19 04/13/19 History [Caltrate 600 Plus D3 Tablet] Famotidine [Pepcid] 10 mg PO DAILY 04/04/19 04/13/19 History INSULIN ASPART (NovoLOG) [NovoLOG 9 unit SQ TID-W/MEALS 04/04/19 04/13/19 History (formulary)] INSULIN ASPART (NovoLOG) [NovoLOG See Protocol SQ ACHS 04/04/19 04/13/19 History (formulary)] Levothyroxine Sodium 125 mcg PO DAILY@0600 04/04/19 04/13/19 History Loperamide [Imodium] 2 mg PO DAILY PRN 04/04/19 04/13/19 History Mag Hydrox/Al Hydrox/Simeth 15 ml PO Q6H PRN 04/04/19 04/13/19 History [Maalox] Aztreonam [Azactam] 2 gm IVPB Q12H 7 Days vial 04/07/19 04/13/19 Rx Metoprolol Tartrate [Lopressor] 50 mg PO TID tab 04/07/19 04/13/19 Rx Albuterol Nebulized [Ventolin 2.5 mg INHALATION RT-Q4H PRN 04/13/19 04/13/19 History Nebulized] Amiodarone [Cordarone] 200 mg PO BID@0800,1700 04/13/19 04/13/19 History Levocetirizine Dihydrochloride 5 mg PO DAILY PRN 04/13/19 04/13/19 History [Xyzal] Na Phos,M-B/Na Phos,Di-Ba [Fleet 133 ml RECTAL DAILY PRN 04/13/19 04/13/19 History Adult] guaiFENesin [guaiFENesin Oral 100 mg PO Q4H PRN 04/13/19 04/13/19 History Solution] Allergies Allergy/AdvReac Type Severity Reaction Status Date / Time cefdinir Allergy Severe Swelling Verified 04/13/19 09:31 Cephalosporins Allergy Unknown Verified 04/13/19 09:31 codeine Allergy Unknown Verified 04/13/19 09:31 doxycycline Allergy Nausea & Verified 04/13/19 09:31 Vomiting erythromycin base Allergy Nausea & Verified 04/13/19 09:31 Vomiting & Diarrhea/RASH Penicillins Allergy Rash/Hives Verified 04/13/19 09:31 trimethoprim [From Bactrim] Allergy Unknown Verified 04/13/19 09:31 azithromycin AdvReac Nausea & Verified 04/13/19 09:31 Vomiting hydrochlorothiazide AdvReac Nausea & Verified 04/13/19 09:31 [From Dyazide] Vomiting levofloxacin [From Levaquin] AdvReac Abdominal Verified 04/13/19 09:31 Pain moxifloxacin HCl AdvReac Unknown Verified 04/13/19 09:31 [From Avelox] sulfamethoxazole AdvReac Nausea & Verified 04/13/19 09:31 [From Bactrim] Vomiting & Diarrhea triamterene [From Dyazide] AdvReac Nausea & Verified 04/13/19 09:31 Vomiting Physical Exam Vitals: Vital Signs Temp Pulse Pulse Resp BP BP Pulse Ox 04/13/19 14:40 98.1 F 95 18 155/82 100 04/13/19 14:25 98.3 F 99 20 152/86 100 04/13/19 11:04 94 04/13/19 10:54 95 04/13/19 09:17 98.2 F 91 17 145/94 100 Intake and Output 04/13/19 04/13/19 04/13/19 06:59 14:59 22:59 Other: # Voids 1 Weight 62.142 kg Results 04/13/19 11:17 04/13/19 11:17 Cardiac Enzymes 04/13/19 04/13/19 Range/Units 11:17 11:17 AST 33 (14-36) U/L Troponin I <0.012 (0.000-0.034) ng/mL Coagulation 04/13/19 Range/Units 11:17 PT 12.3 H (9.0-12.0) sec APTT 22.3 (22.0-30.0) sec CBC 04/13/19 Range/Units 11:17 WBC 4.4 (3.8-10.6) k/uL RBC 2.93 L (3.80-5.40) m/uL Hgb 10.3 L (11.4-16.0) gm/dL Hct 31.0 L (34.0-46.0) % Plt Count 110 L (150-450) k/uL Comprehensive Metabolic Panel 04/13/19 Range/Units 11:17 Sodium 135 L (137-145) mmol/L Potassium 4.5 (3.5-5.1) mmol/L Chloride 102 (98-107) mmol/L Carbon Dioxide 24 (22-30) mmol/L BUN 26 H (7-17) mg/dL Creatinine 0.70 (0.52-1.04) mg/dL Glucose 100 H (74-99) mg/dL Calcium 10.0 (8.4-10.2) mg/dL AST 33 (14-36) U/L ALT 19 (9-52) U/L Alkaline Phosphatase 89 (38-126) U/L Total Protein 7.0 (6.3-8.2) g/dL Albumin 3.9 (3.5-5.0) g/dL Current Medications Generic Name Dose Route Start Last Admin Trade Name Freq PRN Reason Stop Dose Admin Acetaminophen 1,000 mg 04/13/19 14:25 Tylenol Tab PO Q6HR PRN Pain Al Hydroxide/Mg Hydroxide 15 ml 04/13/19 14:25 Maalox PO Q6H PRN ABDOMINAL DISCOMFORT Albuterol Sulfate 2.5 mg 04/13/19 14:25 Ventolin Nebulized INHALATION RT-Q4H PRN Shortness Of Breath Amiodarone HCl 200 mg 04/13/19 17:00 Cordarone PO BID@0800,1700 [facility] Aspirin 81 mg 04/14/19 17:00 Aspirin PO DAILY@1700 [facility] Atorvastatin Calcium 10 mg 04/13/19 21:00 Lipitor PO HS@2100 [facility] Bisacodyl 10 mg 04/13/19 14:25 Dulcolax RECTAL DAILY PRN Constipation Budesonide/Formoterol Fumarate 2 puff 04/13/19 20:00 Symbicort 160-4.5 Mcg Inhaler INHALATION RT-BID [facility] Calcium Carbonate 1 each 04/13/19 17:00 Oscal 500+D PO DAILY@1700 [facility] Carbidopa/Levodopa 1 each 04/13/19 16:00 Sinemet 25-100 PO TID [facility] Docusate Sodium 100 mg 04/13/19 17:00 Colace PO BID@0800,1700 [facility] Famotidine 10 mg 04/14/19 09:00 Pepcid PO DAILY [facility] Ferrous Sulfate 325 mg 04/14/19 09:00 Feosol PO DAILY [facility] Furosemide 40 mg 04/13/19 21:00 Lasix IV Q12HR [facility] Guaifenesin 100 mg 04/13/19 14:25 Robitussin PO Q4H PRN Cough Aztreonam 2 gm/ Sodium 100 mls @ 100 mls/hr 04/13/19 15:00 Chloride IVPB 04/14/19 03:59 Q12H [facility] Insulin Aspart 9 unit 04/13/19 17:30 Novolog SQ TID-W/MEALS [facility] Insulin Detemir 14 unit 04/14/19 07:00 Levemir SQ DAILY@0700 [facility] Lactulose 20 gm 04/13/19 14:25 Cephulac PO BID PRN Constipation Levothyroxine Sodium 125 mcg 04/14/19 06:00 Synthroid PO DAILY@0600 [facility] Loratadine 10 mg 04/13/19 14:25 Claritin PO DAILY PRN Allergy Symptoms Magnesium Hydroxide 2,400 mg 04/13/19 14:25 Milk Of Magnesia PO DAILY PRN Constipation Magnesium Oxide 400 mg 04/13/19 17:00 Mag-Ox PO BID@0800,1700 [facility] Melatonin 3 mg 04/13/19 14:25 Melatonin PO HS PRN Insomnia Metoprolol Tartrate 50 mg 04/13/19 16:00 Lopressor PO TID [facility] Nitroglycerin 1 inch 04/13/19 13:30 04/13/19 13:51 Nitro-Bid Oint TOPICAL 1 inch QID [facility] Administration Teriparatide [Forteo 20 mcg 04/14/19 09:00 ] SQ DAILY [facility] Oxybutynin Chloride 10 mg 04/13/19 21:00 Ditropan Xl PO HS@2100 [facility] Sodium Biphosphate/Sodium Phosphate 133 ml 04/13/19 14:25 Fleet Adult RECTAL DAILY PRN Constipation Sodium Chloride 10 ml 04/13/19 21:00 Saline Flush IV BID [facility] Tetrahydrozoline HCl 1 drops 04/13/19 14:25 Visine Eye Drops BOTH EYES TID PRN Eye Irritation Thiamine HCl 100 mg 04/14/19 12:00 Vitamin B-1 PO DAILY@1200 [facility] Trazodone HCl 50 mg 04/13/19 21:00 Desyrel PO HS [facility] Venlafaxine HCl 75 mg 04/14/19 09:00 Effexor Xr PO DAILY [facility] Intake and Output 04/13/19 04/13/19 04/13/19 06:59 14:59 22:59 Other: # Voids 1 Weight 62.142 kg Patient Weight 04/14/19 06:59 Weight 62.142 kg 04/13/19 11:17 04/13/19 11:17
[2019-04-13] MEDS ORDERED: FUROSEMIDE 10 MG/ML 4 ML VIAL IV SCH ×2 (16:00→21:00)
[2019-04-13] MEDS: METOPROLOL TARTRATE 50 MG TAB PO SCH ×2 (16:05→20:42)
[2019-04-13] MEDS: CALCIUM CARB-VIT D 500MG-200UN 1 EACH TAB PO SCH (16:05)
[2019-04-13] MEDS: MAGNESIUM OXIDE 400 MG TAB PO SCH (16:05)
[2019-04-13] MEDS: DOCUSATE 100 MG CAP PO SCH (16:06)
--- NOTE | 2019-04-13 16:17 | US ---
EXAMINATION TYPE: US chest DATE OF EXAM: 04/13/2019 COMPARISON: CT chest 04/13/2019 CLINICAL HISTORY: b/l pleural effusions. Bilateral pleural effusion TECHNIQUE: Targeted ultrasound of the posterior lower bilateral hemithoraces EXAM MEASUREMENTS: Right Pleural Effusion pocket size: 9.5 cm Right skin surface to fluid distance: 2.3 cm Left Pleural Effusion pocket size: 8.4 cm Left skin surface to fluid distance: 2.4 cm Right side MARKED for possible thoracentesis outside the dept. Left side MARKED for possible thoracentesis outside the dept. Pulmonologists are able to review the images in the patient?s EMR. IMPRESSIONS: Bilateral pleural effusions.
[2019-04-13] MEDS: ALBUTEROL NEBULIZED 2.5 MG/3 ML INHALATION PRN (16:25)
[2019-04-13 16:35] LABS: Glucose,Whole Blood 160 mg/dL (75-99)
--- NOTE | 2019-04-13 16:38 | P.CNPUL ---
History of Present Illness Consult date: 04/13/19 Requesting physician: Fern Plascencia Reason for consult: dyspnea, abnormal CXR/CT Chief complaint: Shortness of breath History of present illness: This is a very pleasant 74-year-old female patient who follows with Dr. Odonnell as her primary care physician. She has a history of chronic atrial fibrillation on chronic anticoagulation, chronic congestive heart failure, COPD, diabetes mellitus type 2, hypertension, hyperlipidemia, chronic kidney disease, hypothyroidism, Parkinson's disease, previous stroke with left eye blindness, DJD, gait dysfunction, ulcerative colitis, recurrent urinary tract infections with previous history of vancomycin-resistant enterococcus UTI. She had recently been discharged from here for urinary tract infection She has been residing at an extended care facility the past 8 months. She was brought in today with shortness of breath, right-sided chest pain. CT angiogram was performed and showed a sizable bilateral pleural effusions and consolidations consistent with congestive heart failure. No central pulmonary embolism was noted. There is hepatic cirrhosis. She is seen today in consultation in the observation unit. Currently sitting up at the bedside. Awake and alert in no acute distress. Maintaining O2 saturations up to 100% on 2 L/m per nasal cannula. She's afebrile. Hemodynamically stable. White count 4.4. Hemoglobin 10.3. Platelet count 110,000. INR 1.2. Creatinine 0.70. Troponin negative. ProBNP 7270. There is bilateral lower extremity edema. Review of Systems REVIEW OF SYSTEMS: CONSTITUTIONAL: Denies any recent significant weight loss or weight gain. EYES: Denies change in vision. EARS, NOSE, MOUTH, THROAT: Denies headaches, denies sore throat. CARDIOVASCULAR: Positive for right-sided chest pain, no palpitations or syncopal episodes. RESPIRATORY: Positive for shortness of breath, cough, congestion no hemoptysis. GASTROINTESTINAL: Denies change in appetite, denies abdominal pain GENITOURINARY: Denies hematuria, denies infections. MUSKULOSKELETAL: Denies pain, positive swelling. INTEGUMENTARY: Denies rash, denies eczema. NEUROLOGICAL: Denies recent memory loss, no recent seizure activity. PSYCHIATRIC: Positive anxiety, denies depression. HEMATOLOGIC/LYMPHATIC: Denies anemia, denies enlarged lymph nodes. 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, multiple drug allergies - some reactions severe, parkinsons, short term memory problems at times, L eye ocular stroke-legally blind, macular degeneration bilaterally, hypothyroid, DJD, DDD, several past fractures d/t falls, frequent falls, gait dysfunction, IBS, ulcerative colitis, acute renal failure, UTIs, 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incont of urien -has idc that was changed in er 10-24-18 History of Any Multi-Drug Resistant Organisms: VRE Date of last positivie culture/infection: 08/18/13 [facility] MDRO Source:: Urine Past Surgical History: Appendectomy, Breast Surgery, Section, Cholecystectomy, Hysterectomy, Orthopedic Surgery Additional Past Surgical History / Comment(s): Debridements R lower leg, L side tongue benign lesion, 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, R shoulder fracture with surgical repair, L elbow ORIF hardware since removed, L hand fracture with surgical repair, bilateral breast benign bxs and reductions, D&C, EGD, colonoscopies, hemorrhoidectomy, bilateral cataract removals with lens implants.picc line"told it's not accessible" Past Anesthesia/Blood Transfusion Reactions: No Reported Reaction Additional Past Anesthesia/Blood Transfusion Reaction / Comment(s): CLAUSTERPHOBIA Past Psychological History: Anxiety Smoking Status: Never smoker - Past Family History Father Family Medical History: Cancer, Prostate Disorder Additional Family Medical History / Comment(s): PROSTATE CA, HERNIA SX BACK SX Mother Family Medical History: Cancer Additional Family Medical History / Comment(s): Mother is . Mother had lung cancer. She was a smoker. Medications and Allergies Home Medications Medication Instructions Recorded Confirmed Type Carbidopa-Levodopa 25-100 mg 1 tab PO TID 01/15/16 04/13/19 History [Sinemet 25-100 mg] Multivitamins, Thera [Multivitamin 1 tab PO DAILY 04/28/18 04/13/19 History (formulary)] Atorvastatin Calcium [Lipitor] 10 mg PO HS@2100 08/09/18 04/13/19 History Docusate [Colace] 100 mg PO BID@0800,1700 08/09/18 04/13/19 History Ergocalciferol [Vitamin D2 50,000 unit PO ROSA 08/09/18 04/13/19 History (DRISDOL)] Ferrous Sulfate [Iron] 325 mg PO DAILY 08/09/18 04/13/19 History Fluticasone/Salmeterol [Advair 1 puff INHALATION RT-BID 08/09/18 04/13/19 History 500-50 Diskus] Thiamine HCl [Vitamin B-1] 100 mg PO DAILY@1200 08/09/18 04/13/19 History Tolterodine Tartrate [Detrol LA] 4 mg PO HS@2100 08/09/18 04/13/19 History Venlafaxine HCl ER [Effexor XR] 75 mg PO DAILY 08/09/18 04/13/19 History Vit C/E/Zn/Coppr/Lutein/Zeaxan 1 tab PO DAILY@1700 08/09/18 04/13/19 History [Preservision Areds 2 Softgel] Magnesium Hydroxide [Milk of 2,400 mg PO DAILY PRN 09/12/18 04/13/19 History Magnesia] Tetrahydrozoline 0.05% Ophth 1 drops BOTH EYES TID PRN ml 09/23/18 04/13/19 Rx [Visine Eye Drops] Ammonium Lactate Lotion 1 applic TOPICAL DAILY@1500 10/24/18 04/13/19 History [Lac-Hydrin 12% Lotion] Insulin Detemir (Levemir) [Levemir] 14 unit SQ DAILY@0800 10/24/18 04/13/19 History Ipratropium-Albuterol Nebulize 3 ml INHALATION RT-Q6H PRN 10/24/18 04/13/19 History [Duoneb 0.5 mg-3 mg/3 ml Soln] Magnesium Oxide [Mag-Ox] 400 mg PO BID@0800,1700 10/24/18 04/13/19 History Melatonin 3 mg PO HS PRN 10/24/18 04/13/19 History Teriparatide [Forteo] 20 mcg SQ DAILY 10/24/18 04/13/19 History traZODone HCL 50 mg PO HS 10/24/18 04/13/19 History Lactulose [Cephulac] 20 gm PO BID PRN ml 11/01/18 04/13/19 Rx Acetaminophen Tab [Tylenol] 1,000 mg PO Q6HR PRN 04/04/19 04/13/19 History Ascorbic Acid [Vitamin C] 500 mg PO DAILY 04/04/19 04/13/19 History Aspirin 81 mg PO DAILY@1700 04/04/19 04/13/19 History Bisacodyl 10 mg RECTAL DAILY PRN 04/04/19 04/13/19 History Calcium Carbonate/Vitamin D3 1 tab PO DAILY@1700 04/04/19 04/13/19 History [Caltrate 600 Plus D3 Tablet] Famotidine [Pepcid] 10 mg PO DAILY 04/04/19 04/13/19 History INSULIN ASPART (NovoLOG) [NovoLOG 9 unit SQ TID-W/MEALS 04/04/19 04/13/19 History (formulary)] INSULIN ASPART (NovoLOG) [NovoLOG See Protocol SQ ACHS 04/04/19 04/13/19 History (formulary)] Levothyroxine Sodium 125 mcg PO DAILY@0600 04/04/19 04/13/19 History Loperamide [Imodium] 2 mg PO DAILY PRN 04/04/19 04/13/19 History Mag Hydrox/Al Hydrox/Simeth 15 ml PO Q6H PRN 04/04/19 04/13/19 History [Maalox] Aztreonam [Azactam] 2 gm IVPB Q12H 7 Days vial 04/07/19 04/13/19 Rx Metoprolol Tartrate [Lopressor] 50 mg PO TID tab 04/07/19 04/13/19 Rx Albuterol Nebulized [Ventolin 2.5 mg INHALATION RT-Q4H PRN 04/13/19 04/13/19 History Nebulized] Amiodarone [Cordarone] 200 mg PO BID@0800,1700 04/13/19 04/13/19 History Levocetirizine Dihydrochloride 5 mg PO DAILY PRN 04/13/19 04/13/19 History [Xyzal] Na Phos,M-B/Na Phos,Di-Ba [Fleet 133 ml RECTAL DAILY PRN 04/13/19 04/13/19 History Adult] guaiFENesin [guaiFENesin Oral 100 mg PO Q4H PRN 04/13/19 04/13/19 History Solution] Allergies Allergy/AdvReac Type Severity Reaction Status Date / Time cefdinir Allergy Severe Swelling Verified 04/13/19 09:31 Cephalosporins Allergy Unknown Verified 04/13/19 09:31 codeine Allergy Unknown Verified 04/13/19 09:31 doxycycline Allergy Nausea & Verified 04/13/19 09:31 Vomiting erythromycin base Allergy Nausea & Verified 04/13/19 09:31 Vomiting & Diarrhea/RASH Penicillins Allergy Rash/Hives Verified 04/13/19 09:31 trimethoprim [From Bactrim] Allergy Unknown Verified 04/13/19 09:31 azithromycin AdvReac Nausea & Verified 04/13/19 09:31 Vomiting hydrochlorothiazide AdvReac Nausea & Verified 04/13/19 09:31 [From Dyazide] Vomiting levofloxacin [From Levaquin] AdvReac Abdominal Verified 04/13/19 09:31 Pain moxifloxacin HCl AdvReac Unknown Verified 04/13/19 09:31 [From Avelox] sulfamethoxazole AdvReac Nausea & Verified 04/13/19 09:31 [From Bactrim] Vomiting & Diarrhea triamterene [From Dyazide] AdvReac Nausea & Verified 04/13/19 09:31 Vomiting Physical Exam Vitals: Vital Signs Temp Pulse Pulse Resp BP BP Pulse Ox 04/13/19 14:40 98.1 F 95 18 155/82 100 04/13/19 14:25 98.3 F 99 20 152/86 100 04/13/19 11:04 94 04/13/19 10:54 95 04/13/19 09:17 98.2 F 91 17 145/94 100 Intake and Output 04/13/19 04/13/19 04/13/19 06:59 14:59 22:59 Other: # Voids 1 Weight 62.142 kg GENERAL EXAM: Alert, pleasant 74-year-old female patient, comfortable in no apparent distress. On 2 L nasal cannula. HEAD: Normocephalic. EYES: Normal reaction of pupils, equal size. NOSE: Clear with pink turbinates. THROAT: No erythema or exudates. NECK: No masses, no JVD. CHEST: No chest wall deformity. LUNGS: Equal air entry with faint crackles in the posterior bases. CVS: S1 and S2 normal with no audible murmur, irregular rhythm. ABDOMEN: No hepatosplenomegaly, normal bowel sounds, no guarding or rigidity. SPINE: No scoliosis or deformity SKIN: No rashes CENTRAL NERVOUS SYSTEM: No focal deficits, tone is normal in all 4 extremities. EXTREMITIES: There is 2+ peripheral edema. No clubbing, no cyanosis. Peripheral pulses are intact. Results - Laboratory Findings CBC and BMP: 04/13/19 11:17 04/13/19 11:17 PT/INR, D-dimer PT 12.3 sec (9.0-12.0) H 04/13/19 11:17 INR 1.2 (<1.2) H 04/13/19 11:17 Abnormal lab findings: Abnormal Labs 04/13/19 04/13/19 04/13/19 11:17 11:17 11:17 RBC 2.93 L Hgb 10.3 L Hct 31.0 L MCV 105.8 H Plt Count 110 L Lymphocytes # 0.6 L PT 12.3 H INR 1.2 H Sodium 135 L BUN 26 H Glucose 100 H Creatine Kinase 23 L - Diagnostic Findings CT scan - chest: image reviewed Assessment and Plan Assessment: Impression: #1 Acute hypoxic respiratory failure secondary to an acute exacerbation of diastolic congestive heart failure and bilateral pleural effusions. Ultrasound of the chest reveals a right-sided 9.5 cm pocket and a left-sided 8.4 cm pocket. #2 Chronic atrial fibrillation, currently not on anticoagulation due to symptomatic anemia with a large abdominal wall hematoma while on Eliquis. #3 Recent urinary tract infection secondary to Proteus mirabilis. #4 History of chronic urinary tract infections. #5 Chronic anemia current hemoglobin 10.3. #6 History of Parkinson's. #7 Chronic obstructive pulmonary disease. #8 Diabetes mellitus type II. #9 Hypertension. #10 Hyperlipidemia. #11 Chronic kidney disease. #12 Hypothyroidism. #13 Previous stroke with left eye blindness. #14 8 dysfunction. #15 History of ulcerative colitis. #16 Poor overall functional performance based on the above-mentioned multiple comorbidities, residing in extended care facility. Plan: The patient was seen and evaluated by Dr. Mckeon. CAT scan of the labs reviewed. Doubt any significant pneumonia. The patient is on aztreonam. We'll continue with bronchodilators and Symbicort. We'll increase Lasix 40 mg IV push every 8 hours. We'll repeat a chest x-ray in the a.m. If there is any significant fluid remaining we will perform thoracentesis. We will continue to follow and make further recommendations based on her clinical status. I, the cosigning physician, performed a history & physical examination of the patient. Lungs sounds with crackles in the bilateral posterior bases, diminished Maintaining good O2 saturations in the 90s on 2 L/m per nasal cannula. I discussed the assessment and plan of care with my nurse practitioner, Jen Brush. I attest to the above note as dictated by her. Time with Patient: Greater than 30
[2019-04-13] MEDS: FUROSEMIDE 10 MG/ML 4 ML VIAL IV SCH ×2 (16:51→23:57)
[2019-04-13] MEDS: AZTREONAM 2 GM in SODIUM CHLORIDE 0.9% 100 ML IVPB SCH (16:52)
[2019-04-13] MEDS ORDERED: INSULIN ASPART (NovoLOG) 100 UNIT/ML VIAL SQ SCH (17:30)
[2019-04-13] MEDS: INSULIN ASPART (NovoLOG) 100 UNIT/ML VIAL SQ SCH ×2 (17:42→20:42)
[2019-04-13] MEDS: SYMBICORT 160-4.5 MCG INHALER INHALATION SCH (19:10)
[2019-04-13 20:02] LABS: Glucose,Whole Blood 204 mg/dL (75-99)
[2019-04-13] MEDS: traZODone HCL 50 MG TAB PO SCH (20:42)
[2019-04-13] MEDS: ATORVASTATIN 10 MG TAB PO SCH (20:42)
[2019-04-13] MEDS: OXYBUTYNIN XL 5 MG TAB.ER.24 PO SCH (20:42)
[2019-04-13] MEDS: ACETAMINOPHEN TAB 500 MG TAB PO PRN (23:57)
[2019-04-14] MEDS: AZTREONAM 2 GM in SODIUM CHLORIDE 0.9% 100 ML IVPB SCH (02:43)
[2019-04-14] MEDS: LEVOTHYROXINE 125 MCG TAB PO SCH (05:52)
[2019-04-14 06:39] LABS: Glucose,Whole Blood 108 mg/dL (75-99)
[2019-04-14] MEDS: SYMBICORT 160-4.5 MCG INHALER INHALATION SCH ×2 (07:23→20:40)
[2019-04-14] MEDS: INSULIN ASPART (NovoLOG) 100 UNIT/ML VIAL SQ SCH ×4 (07:50→21:17)
[2019-04-14 08:16] LABS: Calcium 9.7 mg/dL (8.4-10.2)
[2019-04-14 08:20] LABS: Potassium 4.4 mmol/L (3.5-5.1)
[2019-04-14] MEDS: DOCUSATE 100 MG CAP PO SCH ×2 (08:39→16:04)
[2019-04-14] MEDS: MAGNESIUM OXIDE 400 MG TAB PO SCH ×2 (08:39→16:12)
[2019-04-14] MEDS: FERROUS SULFATE 325 MG TAB PO SCH (08:39)
[2019-04-14] MEDS: FUROSEMIDE 10 MG/ML 4 ML VIAL IV SCH ×3 (08:39→23:22)
[2019-04-14] MEDS: METOPROLOL TARTRATE 50 MG TAB PO SCH ×3 (08:40→19:49)
[2019-04-14] MEDS: INSULIN DETEMIR (LEVEMIR) 100 UNIT/ML SYR SQ SCH (08:40)
[2019-04-14] MEDS: VENLAFAXINE HCL ER 75 MG CAP PO SCH (08:40)
[2019-04-14] MEDS: CARBIDOPA-LEVODOPA 25-100 MG 1 EACH TAB PO SCH ×3 (08:40→19:49)
[2019-04-14] MEDS: AMIODARONE 200 MG TAB PO SCH (08:40)
[2019-04-14] MEDS ORDERED: KETOROLAC 30 MG/ML 1 ML VIAL IVP STA (08:49)
[2019-04-14] MEDS: Teriparatide [Forteo] SQ SCH (08:51)
[2019-04-14] MEDS ORDERED: FAMOTIDINE 20 MG TAB PO SCH (09:00)
[2019-04-14] MEDS ORDERED: ASPIRIN 325 MG TAB PO SCH (09:00)
--- NOTE | 2019-04-14 09:00 | XR ---
EXAMINATION TYPE: XR chest 1V portable DATE OF EXAM: 04/14/2019 COMPARISON: 04/05/2019 HISTORY: Shortness of breath TECHNIQUE: Single frontal view of the chest is obtained. FINDINGS: Diffuse interstitial pattern with bilateral infiltrate and pleural effusion. Calcified lym ph nodes noted. Cardiomegaly stable. Comments the upper mediastinum likely related to positioning and vasculature. No pneumothorax. Chronic deformities of the humeral head and arthropathy of the shoulde rs. IMPRESSION: Diffuse pleural-parenchymal changes most typical of CHF correlate clinically to exclude underlying pneumonia.
[2019-04-14] MEDS ORDERED: METOPROLOL TARTRATE 50 MG TAB PO STA (09:40)
--- NOTE | 2019-04-14 09:44 | P.PN ---
Subjective This is a pleasant 74 showed female past medical history significant for paroxysmal atrial fibrillation on long-term anticoagulation secondary to frequent falls causing abdominal hematoma earlier this year, hypertension, dyslipidemia, COPD, asthma, chronic diastolic heart failure, diabetes mellitus, hypothyroidism and gastroesophageal reflux disease. She follows in the office with Dr. Rivera. We have been asked to see her in consultation secondary to shortness of breath. The patient and her state that she was discharged from the hospital on Wednesday of last week secondary to atrial fibrillation with rapid ventricular response. She lives at [facility] and approximately 2 days after being discharged she started feeling short of breath. Her breathing treatments were increased and she was started on empiric antibiotics. Over the course of the previous few days her breathing has gotten worse day by day with no real improvement with the antibiotics and breathing treatments. She states she also is having significant right anterior chest wall pain with deep breathing and cough. She states she is coughing up significant amount of sputum however she is swallowing and not sure of the color. She also describes orthopnea which is new for her. EKG reveals atrial fibrillation, right bundle branch block left anterior fascicular block heart rate is 90. Chest CT angiogram the markedly limited exam revealing sizable bilateral pleural effusions, no evidence of PE possible anasarca. Laboratory data reviewed, NT proBNP over 7000, WBC 4.4, hemoglobin 10.3, platelets 110, INR 1.2, sodium 135, potassium 4.5, creatinine 0.7, troponin negative 1. Current cardiac medications include amiodarone 200 mg twice a day, aspirin 81 mg daily, atorvastatin 10 mg daily, Lopressor 50 mg 3 times a day. Most recent echocardiogram in September 2018 reveals preserved LV systolic function with ejection fraction 60-65%, mild aortic valve sclerosis with a mean gradient of 5 mmHg, mild mitral regurgitation with a mean gradient across the mitral valve is 5 mmHg moderate tricuspid regurgitation and [id number] pulmonary hypertension with RVSP 45 mmHg. 04/14/2019 Pt is seen and examined resting comfortably in bed. She appears mildly short of breath at rest however, improved from yesterday. She continues to feel significant right anterior chest wall pain with movement of breathing. Laboratory data reviewed, sodium 136, potassium 4.4, creatinine 0.79, cardiac enzymes negative x3. Blood pressure 126/85 heart rate 113 and irregular. Chest xray reveals diffuse pleural-parenchymal changes typical of CHF and possibly underlying pneumonia. GENERAL: This is a 74-year-old female in no apparent distress at the time of my examination. HEENT: Head is atraumatic, normocephalic. Pupils are equal, round. Sclerae anicteric. Conjunctivae are clear. Mucous membranes of the mouth are moist. Neck is supple. There is no jugular venous distention. No carotid bruit is heard. LUNGS: Severely diminished bilateral bases, bibasilar rales, no rhonchi or wheezes. No chest wall tenderness is noted on palpation or with deep breathing. HEART: Irregular rate and rhythm with systolic ejection murmur at the base and left sternal border, no rubs or gallops. S1 and S2 heard. EXTREMITIES: Bilateral lower extremity 1+ pitting edema left greater than right. No calf tenderness noted. ASSESSMENT Acute on chronic diastolic heart failure Bilateral pleural effusions Paroxysmal atrial fibrillation on long-term anticoagulation Hypertension Dyslipidemia COPD Diabetes mellitus PLAN Continue IV diuresis. Discontinue amiodarone and add verapamil 120 mg daily for heart rate control. We will continue to follow and make recommendations accordingly. Nurse Practitioner note has been reviewed, I agree with a documented findings and plan of care. Patient was seen and examined. Objective - Vital Signs Vital signs: Vital Signs Temp 98.9 F 04/14/19 08:00 Pulse 113 H 04/14/19 08:00 Resp 18 04/14/19 08:00 BP 126/85 04/14/19 08:00 Pulse Ox 97 04/14/19 08:00 Intake & Output 04/13/19 04/14/19 04/14/19 18:59 06:59 18:59 Output Total 200 200 Balance -200 -200 Weight 62.142 kg 64.5 kg Output: Urine 200 200 Other: Voiding Method Bedside Commode Diaper Incontinent # Voids 1 1 - Labs CBC & Chem 7: 04/13/19 11:17 04/14/19 07:06 Labs: Abnormal Lab Results - Last 24 Hours (Table) 04/13/19 04/13/19 04/13/19 Range/Units 11:17 11:17 11:17 RBC 2.93 L (3.80-5.40) m/uL Hgb 10.3 L (11.4-16.0) gm/dL Hct 31.0 L (34.0-46.0) % MCV 105.8 H (80.0-100.0) fL Plt Count 110 L (150-450) k/uL Lymphocytes # 0.6 L (1.0-4.8) k/uL PT 12.3 H (9.0-12.0) sec INR 1.2 H (<1.2) D-Dimer (<0.60) mg/L FEU Sodium 135 L (137-145) mmol/L Carbon Dioxide (22-30) mmol/L BUN 26 H (7-17) mg/dL Glucose 100 H (74-99) mg/dL POC Glucose (mg/dL) (75-99) mg/dL Creatine Kinase 23 L (30-135) U/L 04/13/19 04/13/19 04/13/19 Range/Units 16:34 17:17 20:01 RBC (3.80-5.40) m/uL Hgb (11.4-16.0) gm/dL Hct (34.0-46.0) % MCV (80.0-100.0) fL Plt Count (150-450) k/uL Lymphocytes # (1.0-4.8) k/uL PT (9.0-12.0) sec INR (<1.2) D-Dimer 0.69 H (<0.60) mg/L FEU Sodium (137-145) mmol/L Carbon Dioxide (22-30) mmol/L BUN (7-17) mg/dL Glucose (74-99) mg/dL POC Glucose (mg/dL) 160 H 204 H (75-99) mg/dL Creatine Kinase (30-135) U/L 04/14/19 04/14/19 Range/Units 06:38 07:06 RBC (3.80-5.40) m/uL Hgb (11.4-16.0) gm/dL Hct (34.0-46.0) % MCV (80.0-100.0) fL Plt Count (150-450) k/uL Lymphocytes # (1.0-4.8) k/uL PT (9.0-12.0) sec INR (<1.2) D-Dimer (<0.60) mg/L FEU Sodium 136 L (137-145) mmol/L Carbon Dioxide 20 L (22-30) mmol/L BUN 28 H (7-17) mg/dL Glucose 102 H (74-99) mg/dL POC Glucose (mg/dL) 108 H (75-99) mg/dL Creatine Kinase (30-135) U/L
[2019-04-14] MEDS ORDERED: VERAPAMIL SR 120 MG TABLET.ER PO SCH (11:00)
[2019-04-14] MEDS: THIAMINE 100 MG TAB PO SCH (11:09)
[2019-04-14] MEDS: ACETAMINOPHEN TAB 500 MG TAB PO PRN (11:11)
--- NOTE | 2019-04-14 11:23 | ECHOF ---
Referral Reason:sob MEASUREMENTS -------- HEIGHT: 152.4 cm WEIGHT: 64.4 kg BP: 145/63 RVIDd: 2.8 cm (< 3.3) IVSd: 1.3 cm (0.6 - 1.1) LVIDd: 3.5 cm (3.9 - 5.3) LVPWd: 1.2 cm (0.6 - 1.1) IVSs: 1.7 cm LVIDs: 2.4 cm LVPWs: 1.6 cm LA Diam: 3.9 cm (2.7 - 3.8) LAESV Index (A-L): 25.23 ml/m Ao Diam: 2.4 cm (2.0 - 3.7) AV Cusp: 1.5 cm (1.5 - 2.6) MV EXCURSION: 8.807 mm (> 18.000) MV EF SLOPE: 10 mm/s (70 - 150) EPSS: 1.2 cm RAP: 15.00 mmHg RVSP: 64.81 mmHg FINDINGS -------- Atrial fibrillation. This was a technically adequate study. The left ventricular size is normal. There is mild concentric left ventricular hypertrophy. Overa ll left ventricular systolic function is low-normal with, an EF between 50 - 55 %. The right ventricle is normal in size. Normal LA size by volume 22+/-6 ml/m2. The right atrium is normal in size. Interatrial and interventricular septum intact. There is mild to moderate aortic valve sclerosis. The mitral valve leaflets are moderately thickened. Moderate mitral annular calcification present. There is trace mitral regurgitation. The peak and mean MV gradients are 24.75mmHg 9.30mmHg as me asured by doppler. Moderate mitral stenosis. Moderate to severe tricuspid regurgitation present. There is severe pulmonary hypertension. The r ight ventricular systolic pressure, as measured by Doppler, is 64.81mmHg. Trace/mild (physiologic) pulmonic regurgitation. The aortic root size is normal. Normal inferior vena cava with less than 50% inspiratory collapse consistent with estimated right atr ial pressure of 15 mmHg. There is no pericardial effusion. CONCLUSIONS -------- 1. Atrial fibrillation. 2. This was a technically adequate study. 3. The left ventricular size is normal. 4. There is mild concentric left ventricular hypertrophy. 5. The right ventricle is normal in size. 6. Normal LA size by volume 22+/-6 ml/m2. 7. The right atrium is normal in size. 8. Interatrial and interventricular septum intact. 9. There is mild to moderate aortic valve sclerosis. 10. The mitral valve leaflets are moderately thickened. 11. Moderate mitral annular calcification present. 12. There is trace mitral regurgitation. 13. The peak and mean MV gradients are 24.75mmHg 9.30mmHg as measured by doppler. 14. Moderate mitral stenosis. 15. Moderate to severe tricuspid regurgitation present. 16. There is severe pulmonary hypertension. 17. The right ventricular systolic pressure, as measured by Doppler, is 64.81mmHg. 18. Trace/mild (physiologic) pulmonic regurgitation. 19. The aortic root size is normal. 20. Normal inferior vena cava with less than 50% inspiratory collapse consistent with estimated right atrial pressure of 15 mmHg. 21. There is no pericardial effusion. DIRECTOR OF CONTRACTS: Reyna Rivas RDCS
--- NOTE | 2019-04-14 11:26 | P.PN ---
Subjective Progress Note Date: 04/14/19 Principal diagnosis: Acute exacerbation of diastolic congestive heart failure and bilateral pleural effusions. This is a very pleasant 74-year-old female patient who follows with Dr. Odonnell as her primary care physician. She has a history of chronic atrial fibrillation on chronic anticoagulation, chronic congestive heart failure, COPD, diabetes mellitus type 2, hypertension, hyperlipidemia, chronic kidney disease, hypothyroidism, Parkinson's disease, previous stroke with left eye blindness, DJD, gait dysfunction, ulcerative colitis, recurrent urinary tract infections with previous history of vancomycin-resistant enterococcus UTI. She had recently been discharged from here for urinary tract infection She has been residing at an extended care facility the past 8 months. She was brought in today with shortness of breath, right-sided chest pain. CT angiogram was perfo rmed and showed a sizable bilateral pleural effusions and consolidations consistent with congestive heart failure. No central pulmonary embolism was noted. There is hepatic cirrhosis. She is seen today in consultation in the observation unit. Currently sitting up at the bedside. Awake and alert in no acute distress. Maintaining O2 saturations up to 100% on 2 L/m per nasal cannula. She's afebrile. Hemodynamically stable. White count 4.4. Hemoglobin 10.3. Platelet count 110,000. INR 1.2. Creatinine 0.70. Troponin negative. ProBNP 7270. There is bilateral lower extremity edema. Patient was reevaluated today on 04/14/2019, feeling better, breathing easier, however she has some right-sided chest wall pain which is reproducible, and she has some tenderness over the right anterior chest wall in the right parasternal area. Patient states that her shortness of breath is better, her chest x-ray continues to show congestive heart failure, but not much pleural effusions as noted on CT of the chest and ultrasound of the chest done yesterday. Patient remains on diuretics, her electrolytes are normal today, BUN is 28 creatinine is 0.79. Furosemide remains at 40 mg IV push every 8 hours. Considering the improvement clinically and considering the chest x-ray findings, no plans for thoracentesis. Objective - Vital Signs Vital signs: Vital Signs Temp 98.9 F 04/14/19 08:00 Pulse 113 H 04/14/19 08:00 Resp 18 04/14/19 08:00 BP 126/85 04/14/19 08:00 Pulse Ox 97 04/14/19 08:00 Intake & Output 04/13/19 04/14/19 04/14/19 18:59 06:59 18:59 Output Total 200 200 Balance -200 -200 Weight 62.142 kg 64.5 kg Output: Urine 200 200 Other: Voiding Method Bedside Commode Bedside Commode Diaper Diaper Incontinent Incontinent # Voids 1 1 - Exam Physical Exam: 74-year-old female, pleasant, in no distress. On 2 L nasal cannula, comfortable Head: Atraumatic, normocephalic. HEENT:[Neck is supple.] [No neck masses.] [No thyromegaly.] [No JVD.] Dry mucous membranes noted. PERRLA, EOMI, no icterus. Chest: [Symmetrical chest expansion, crackles at the bases, no rhonchi and no wheezes.] Cardiac Exam: [Irregular irregular rhythm. Normal S1 and S2, no S3 gallop, no murmur.] Abdomen: [Soft, nontender, no megaly, no rebound, no guarding, normal bowel sounds.] Extremities: [No clubbing, trace of bipedal edema, no cyanosis.] Neurological Exam: [No focal neurologic deficit.] Psychiatric: Normal mood, affect normal. Skin: No rashes. - Labs CBC & Chem 7: 04/13/19 11:17 04/14/19 07:06 Labs: Abnormal Lab Results - Last 24 Hours (Table) 04/13/19 04/13/19 04/13/19 Range/Units 11:17 11:17 11:17 RBC 2.93 L (3.80-5.40) m/uL Hgb 10.3 L (11.4-16.0) gm/dL Hct 31.0 L (34.0-46.0) % MCV 105.8 H (80.0-100.0) fL Plt Count 110 L (150-450) k/uL Lymphocytes # 0.6 L (1.0-4.8) k/uL PT 12.3 H (9.0-12.0) sec INR 1.2 H (<1.2) D-Dimer (<0.60) mg/L FEU Sodium 135 L (137-145) mmol/L Carbon Dioxide (22-30) mmol/L BUN 26 H (7-17) mg/dL Glucose 100 H (74-99) mg/dL POC Glucose (mg/dL) (75-99) mg/dL Creatine Kinase 23 L (30-135) U/L 04/13/19 04/13/19 04/13/19 Range/Units 16:34 17:17 20:01 RBC (3.80-5.40) m/uL Hgb (11.4-16.0) gm/dL Hct (34.0-46.0) % MCV (80.0-100.0) fL Plt Count (150-450) k/uL Lymphocytes # (1.0-4.8) k/uL PT (9.0-12.0) sec INR (<1.2) D-Dimer 0.69 H (<0.60) mg/L FEU Sodium (137-145) mmol/L Carbon Dioxide (22-30) mmol/L BUN (7-17) mg/dL Glucose (74-99) mg/dL POC Glucose (mg/dL) 160 H 204 H (75-99) mg/dL Creatine Kinase (30-135) U/L 04/14/19 04/14/19 Range/Units 06:38 07:06 RBC (3.80-5.40) m/uL Hgb (11.4-16.0) gm/dL Hct (34.0-46.0) % MCV (80.0-100.0) fL Plt Count (150-450) k/uL Lymphocytes # (1.0-4.8) k/uL PT (9.0-12.0) sec INR (<1.2) D-Dimer (<0.60) mg/L FEU Sodium 136 L (137-145) mmol/L Carbon Dioxide 20 L (22-30) mmol/L BUN 28 H (7-17) mg/dL Glucose 102 H (74-99) mg/dL POC Glucose (mg/dL) 108 H (75-99) mg/dL Creatine Kinase (30-135) U/L Assessment and Plan Assessment: Impression: 1 acute hypoxic respiratory failure secondary to acute exacerbation of diastolic congestive heart failure. With bilateral pleural effusions, responding to diuresis, hence no need for thoracentesis. 2 chronic atrial fibrillation, poor tolerance to anticoagulation therapy. 3 history of chronic and recurrent urinary tract infections, 4 type 2 diabetes 5 COPD 6 hypothyroidism 7 previous CVA and left eye blindness 8 history of ulcerative colitis 9 history of kidney injury, presently resolved. Patient has normal renal profile. Recommendation: Continue present treatment plan including diuretics, no need for thoracentesis, continue present meds as listed, continue to monitor electrolytes on a daily basis, will continue to follow. Time with Patient: Less than 30
[2019-04-14 11:35] LABS: Glucose,Whole Blood 133 mg/dL (75-99)
[2019-04-14 11:46] VITALS: BMI 27.7
--- NOTE | 2019-04-14 12:22 | PN ---
PROGRESS NOTE Mrs. Chou is in atrial fib, rate is somewhat faster. She has shortness of breath, is still about the same, maybe there is a modest improvement. She has bilateral pleural effusion, question of pneumonia. However, she does not want to have any testing done. She was not in the best mood this morning but she is feeling better now. Vitals are stable. There is JVD of 1 cm. No carotid bruit. S1, S2 heard normally. Short systolic murmur is audible. Irregular rate and rhythm noted. Rate is somewhat faster. Lungs reveal diminished air entry both bases. Some rales in the right base. Echo revealed preserved systolic function. I am recommending that we discontinue amiodarone and add verapamil 40 mg t.i.d. and continue beta blockers and optimize rate control. Patient seems to be in chronic persistent atrial fib and therefore I will stop amiodarone. Discussed this with the patient. MMODL / IJN: [id number] /
[2019-04-14] MEDS: FAMOTIDINE 20 MG TAB PO SCH (12:38)
[2019-04-14] MEDS: KETOROLAC 30 MG/ML 1 ML VIAL IVP PRN ×2 (12:39→19:42)
--- NOTE | 2019-04-14 15:10 | P.PN ---
Subjective 74-year-old female was admitted to for bilateral pleural effusion short is a resident secondary to that a possibility of pneumonia is low. Patient is on antibiotics for UTI. Patient heart rate is higher because of which are verapamil dose is being increased patient will be continued on Lasix today. Possibly of discharge to subacute rehabilitation tomorrow. Constitutional: Denied any fatigue denied any fever. Cardio vascular: Comparing of pain in the chest which is [place] skeletal Gastrointestinal denied any nausea vomiting Pulmonary: Denied any shortness of breath cough Neurologic denied any new focal deficits All inpatient medications were reviewed and appropriate changes in these medications as dictated in the interval history and assessment and plan. Objective - Vital Signs Vital signs: Vital Signs Temp 98.3 F 04/14/19 12:00 Pulse 102 H 04/14/19 12:00 Resp 18 04/14/19 12:00 BP 132/82 04/14/19 12:00 Pulse Ox 97 04/14/19 12:00 Intake & Output 04/13/19 04/14/19 04/14/19 18:59 06:59 18:59 Intake Total 120 Output Total 200 200 Balance -200 -200 120 Weight 62.142 kg 64.5 kg 64.5 kg Intake: Oral 120 Output: Urine 200 200 Other: Voiding Method Bedside Commode Bedside Commode Diaper Diaper Incontinent Incontinent # Voids 1 1 0 - Exam PHYSICAL EXAMINATION: GENERAL: The patient is alert and oriented x3, not in any acute distress. Well developed, well nourished. Does have tremor which appears to be chronic and secondary to Parkinson's HEENT: Pupils are round and equally reacting to light. EOMI. No scleral icterus. No conjunctival pallor. Normocephalic, atraumatic. No pharyngeal erythema. No thyromegaly. CARDIOVASCULAR: S1 and S2 present. No murmurs, rubs, or gallops. PULMONARY: Chest is clear to auscultation, no wheezing or crackles. ABDOMEN: Soft, nontender, nondistended, normoactive bowel sounds. No palpable organomegaly. MUSCULOSKELETAL: No joint swelling or deformity. EXTREMITIES: No cyanosis, clubbing, or pedal edema. NEUROLOGICAL: Gross neurological examination did not reveal any focal deficits. SKIN: No rashes. - Labs CBC & Chem 7: 04/13/19 11:17 04/14/19 07:06 Labs: Abnormal Lab Results - Last 24 Hours (Table) 04/13/19 04/13/19 04/13/19 Range/Units 16:34 17:17 20:01 D-Dimer 0.69 H (<0.60) mg/L FEU Sodium (137-145) mmol/L Carbon Dioxide (22-30) mmol/L BUN (7-17) mg/dL Glucose (74-99) mg/dL POC Glucose (mg/dL) 160 H 204 H (75-99) mg/dL 04/14/19 04/14/19 04/14/19 Range/Units 06:38 07:06 11:34 D-Dimer (<0.60) mg/L FEU Sodium 136 L (137-145) mmol/L Carbon Dioxide 20 L (22-30) mmol/L BUN 28 H (7-17) mg/dL Glucose 102 H (74-99) mg/dL POC Glucose (mg/dL) 108 H 133 H (75-99) mg/dL Microbiology - Last 24 Hours (Table) 04/13/19 11:17 Blood Culture - Preliminary Blood No Growth after 24 hours Assessment and Plan Plan: -Shortness of breath, chest pain: We'll rule out a concurrent syndromes or numbness of breath may be related to heart failure chronic diastolic dysfunction with acute exacerbation patient was started on patient will remain on Lasix for today twice a day cardiology was consulted. Chest pain appears to be secondary to musculoskeletal:. We'll get to 2 more sets of troponins and EKGs. -Low possibility of pneumonia -Moderate pulmonary hypertension -COPD without any significant exacerbation patient will be resumed on her inhalational treatments patient does have wheezing today may require oral steroids -Atrial fibrillation presently rate controlled sinus rhythm: Continue her home regimen, patient is not on antiplatelet correlation because of her fall risk and further management regarding this as per cardiology -Type 2 diabetes mellitus patient will be resumed on her home regimen titrate the blood sugars recommending depending on the blood sugars readings here -Gastroesophageal reflux disease -Hypertension hyperlipidemia Hypothyroidism -Parkinson's patient patient was resumed on parkinsonian medications
[2019-04-14] MEDS: ASPIRIN 81 MG PO SCH (16:12)
[2019-04-14] MEDS: CALCIUM CARB-VIT D 500MG-200UN 1 EACH TAB PO SCH (16:12)
[2019-04-14 16:55] LABS: Glucose,Whole Blood 82 mg/dL (75-99)
[2019-04-14] MEDS: ALBUTEROL NEBULIZED 2.5 MG/3 ML INHALATION PRN ×2 (17:03→20:40)
[2019-04-14 19:48] LABS: Glucose,Whole Blood 171 mg/dL (75-99)
[2019-04-14] MEDS: ATORVASTATIN 10 MG TAB PO SCH (19:49)
[2019-04-14] MEDS: OXYBUTYNIN XL 5 MG TAB.ER.24 PO SCH (19:50)
[2019-04-14] MEDS ORDERED: METOPROLOL TARTRATE 50 MG TAB PO SCH (21:00)
[2019-04-14] MEDS: traZODone HCL 50 MG TAB PO SCH (21:25)
--- NOTE | 2019-04-14 22:54 | P.CONS ---
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 At admission there is evidence of the chest x- ray and it's abnormal with congestive heart failure, bilateral pleural effusions and pneumonia could not be excluded. She was recently hospitalized and was find evidence of a urinary tract infection with Proteus and was back to the [facility] care facility on Azactam for the treatment of this infection. She's had many prior infections in the past including a bout of VRE. She currently relates that she started to feel better. She is having no significant fevers or chills. Shortness of breath remains problematic continues to have significant pain to her right shoulder that she cannot relate how this occurred. She did not relate that she had any recent falls. She however of course is a very poor historian. Review of Systems patient feels poorly, she and feels very weak. HEENT:chronic visual change without acute worsening Lungs:Patient relates to shortness of breath that is only minimally improved since admission, she has cough without hemoptysisand sputum production. Cardiovascular: She is having some pain to her right shoulder but denies chest pressure or midsternal chest pain. She has shortness of breath at rest and with any exertion. Does not believe she's had syncope. Gastrointestinal:Denies nausea, vomiting, diarrhea, constipation, hematemesis, melena, hematochezia. No no significant change of bowel habit noticed. Musculoskeletal: denies significant myalgias or arthralgias. No new joint swelling. Denies new back pain. Skin: Easy bruising multiple bruises are noted no new open ulcers Neuro: chronic headache but no new acute visual change. Psychiatric:Denies anxiety or depression. 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, multiple drug allergies - some reactions severe, parkinsons, short term memory problems at times, L eye ocular stroke-legally blind, macular degen eration bilaterally, hypothyroid, DJD, DDD, several past fractures d/t falls, frequent falls, gait dysfunction, IBS, ulcerative colitis, acute renal failure, UTIs, 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incont of urien -has idc that was changed in er 10-24-18 History of Any Multi-Drug Resistant Organisms: VRE Year Discovered:: 08/18/13 [facility] MDRO Source:: Urine Past Surgical History: Appendectomy, Breast Surgery, Section, Cholecystectomy, Hysterectomy, Orthopedic Surgery Additional Past Surgical History / Comment(s): Debridements R lower leg, L side tongue benign lesion, 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 She denies any medical marijuana, marijuana, street drug or alcohol use at this time. Patient does have a history of heavy alcohol use and quit 12 years ago. She is currently on Social Security. She is currently at [facility] for rehab r/t falls/weakness, but otherwise lives at home with her . There are no pets in the home. And she has had no recent travel. Smoking Status: Never smoker - Past Family History Father Family Medical History: Cancer, Prostate Disorder Additional Family Medical History / Comment(s): PROSTATE CA, HERNIA SX BACK SX Mother Family Medical History: Cancer Additional Family Medical History / Comment(s): Mother is . Mother had lung cancer. She was a smoker. Medications and Allergies Home Medications and Allergies Comment(s): Current Medications Acetaminophen (Tylenol Tab) 1,000 mg PO Q6HR PRN PRN Reason: Pain Last Admin: 04/14/19 11:11 Dose: 1,000 mg Documented by: Al Hydroxide/Mg Hydroxide (Maalox) 15 ml PO Q6H PRN PRN Reason: ABDOMINAL DISCOMFORT Albuterol Sulfate (Ventolin Nebulized) 2.5 mg INHALATION RT-Q4H PRN PRN Reason: Shortness Of Breath Last Admin: 04/14/19 20:40 Dose: 2.5 mg Documented by: Aspirin (Aspirin) 81 mg PO DAILY@1700 [facility] Last Admin: 04/14/19 16:12 Dose: 81 mg Documented by: Atorvastatin Calcium (Lipitor) 10 mg PO HS@2100 [facility] Last Admin: 04/14/19 19:49 Dose: 10 mg Documented by: Bisacodyl (Dulcolax) 10 mg RECTAL DAILY PRN PRN Reason: Constipation Budesonide/Formoterol Fumarate (Symbicort 160-4.5 Mcg Inhaler) 2 puff INHALATION RT-BID [facility] Last Admin: 04/14/19 20:40 Dose: 2 puff Documented by: Calcium Carbonate (Oscal 500+D) 1 each PO DAILY@1700 [facility] Last Admin: 04/14/19 16:12 Dose: 1 each Documented by: Carbidopa/Levodopa (Sinemet 25-100) 1 each PO TID [facility] Last Admin: 04/14/19 19:49 Dose: 1 each Documented by: Docusate Sodium (Colace) 100 mg PO BID@0800,1700 [facility] Last Admin: 04/14/19 16:04 Dose: Not Given Documented by: Famotidine (Pepcid) 20 mg PO DAILY [facility] Last Admin: 04/14/19 12:38 Dose: 20 mg Documented by: Ferrous Sulfate (Feosol) 325 mg PO DAILY [facility] Last Admin: 04/14/19 08:39 Dose: 325 mg Documented by: Furosemide (Lasix) 40 mg IV Q8HR [facility] Last Admin: 04/14/19 16:12 Dose: 40 mg Documented by: Guaifenesin (Robitussin) 100 mg PO Q4H PRN PRN Reason: Cough Last Admin: 04/13/19 21:27 Dose: 100 mg Documented by: Insulin Aspart (Novolog) 0 unit SQ ACHS [facility]; Protocol Last Admin: 04/14/19 21:17 Dose: Not Given Documented by: Insulin Detemir (Levemir) 14 unit SQ DAILY@0700 [facility] Last Admin: 04/14/19 08:40 Dose: Not Given Documented by: Ketorolac Tromethamine (Toradol) 15 mg IVP Q6HR PRN PRN Reason: Pain Stop: 04/18/19 12:11 Last Admin: 04/14/19 19:42 Dose: 15 mg Documented by: Lactulose (Cephulac) 20 gm PO BID PRN PRN Reason: Constipation Levothyroxine Sodium (Synthroid) 125 mcg PO DAILY@0600 [facility] Last Admin: 04/14/19 05:52 Dose: 125 mcg Documented by: Loratadine (Claritin) 10 mg PO DAILY PRN PRN Reason: Allergy Symptoms Magnesium Hydroxide (Milk Of Magnesia) 2,400 mg PO DAILY PRN PRN Reason: Constipation Magnesium Oxide (Mag-Ox) 400 mg PO BID@0800,1700 [facility] Last Admin: 04/14/19 16:12 Dose: 400 mg Documented by: Melatonin (Melatonin) 3 mg PO HS PRN PRN Reason: Insomnia Last Admin: 04/13/19 21:27 Dose: 3 mg Documented by: Metoprolol Tartrate (Lopressor) 50 mg PO TID [facility] Last Admin: 04/14/19 19:49 Dose: Not Given Documented by: Teriparatide [Forteo (]) 20 mcg SQ DAILY [facility] Last Admin: 04/14/19 08:51 Dose: Not Given Documented by: Oxybutynin Chloride (Ditropan Xl) 10 mg PO HS@2100 [facility] Last Admin: 04/14/19 19:50 Dose: 10 mg Documented by: Sodium Biphosphate/Sodium Phosphate (Fleet Adult) 133 ml RECTAL DAILY PRN PRN Reason: Constipation Sodium Chloride (Saline Flush) 10 ml IV BID [facility] Last Admin: 04/14/19 19:53 Dose: 10 ml Documented by: Tetrahydrozoline HCl (Visine Eye Drops) 1 drops BOTH EYES TID PRN PRN Reason: Eye Irritation Thiamine HCl (Vitamin B-1) 100 mg PO DAILY@1200 [facility] Last Admin: 04/14/19 11:09 Dose: 100 mg Documented by: Trazodone HCl (Desyrel) 50 mg PO HS [facility] Last Admin: 04/14/19 21:25 Dose: 50 mg Documented by: Venlafaxine HCl (Effexor Xr) 75 mg PO DAILY [facility] Last Admin: 04/14/19 08:40 Dose: 75 mg Documented by: Verapamil HCl (Isoptin Sr) 120 mg PO DAILY [facility] Last Admin: 04/14/19 11:09 Dose: 120 mg Documented by: Home Medications Medication Instructions Recorded Confirmed Type Carbidopa-Levodopa 25-100 mg 1 tab PO TID 01/15/16 04/13/19 History [Sinemet 25-100 mg] Multivitamins, Thera [Multivitamin 1 tab PO DAILY 04/28/18 04/13/19 History (formulary)] Atorvastatin Calcium [Lipitor] 10 mg PO HS@2100 08/09/18 04/13/19 History Docusate [Colace] 100 mg PO BID@0800,1700 08/09/18 04/13/19 History Ergocalciferol [Vitamin D2 50,000 unit PO ROSA 08/09/18 04/13/19 History (DRISDOL)] Ferrous Sulfate [Iron] 325 mg PO DAILY 08/09/18 04/13/19 History Fluticasone/Salmeterol [Advair 1 puff INHALATION RT-BID 08/09/18 04/13/19 History 500-50 Diskus] Thiamine HCl [Vitamin B-1] 100 mg PO DAILY@1200 08/09/18 04/13/19 History Tolterodine Tartrate [Detrol LA] 4 mg PO HS@2100 08/09/18 04/13/19 History Venlafaxine HCl ER [Effexor XR] 75 mg PO DAILY 08/09/18 04/13/19 History Vit C/E/Zn/Coppr/Lutein/Zeaxan 1 tab PO DAILY@1700 08/09/18 04/13/19 History [Preservision Areds 2 Softgel] Magnesium Hydroxide [Milk of 2,400 mg PO DAILY PRN 09/12/18 04/13/19 History Magnesia] Tetrahydrozoline 0.05% Ophth 1 drops BOTH EYES TID PRN ml 09/23/18 04/13/19 Rx [Visine Eye Drops] Ammonium Lactate Lotion 1 applic TOPICAL DAILY@1500 10/24/18 04/13/19 History [Lac-Hydrin 12% Lotion] Insulin Detemir (Levemir) [Levemir] 14 unit SQ DAILY@0800 10/24/18 04/13/19 History Ipratropium-Albuterol Nebulize 3 ml INHALATION RT-Q6H PRN 10/24/18 04/13/19 History [Duoneb 0.5 mg-3 mg/3 ml Soln] Magnesium Oxide [Mag-Ox] 400 mg PO BID@0800,1700 10/24/18 04/13/19 History Melatonin 3 mg PO HS PRN 10/24/18 04/13/19 History Teriparatide [Forteo] 20 mcg SQ DAILY 10/24/18 04/13/19 History traZODone HCL 50 mg PO HS 10/24/18 04/13/19 History Lactulose [Cephulac] 20 gm PO BID PRN ml 11/01/18 04/13/19 Rx Acetaminophen Tab [Tylenol] 1,000 mg PO Q6HR PRN 04/04/19 04/13/19 History Ascorbic Acid [Vitamin C] 500 mg PO DAILY 04/04/19 04/13/19 History Aspirin 81 mg PO DAILY@1700 04/04/19 04/13/19 History Bisacodyl 10 mg RECTAL DAILY PRN 04/04/19 04/13/19 History Calcium Carbonate/Vitamin D3 1 tab PO DAILY@1700 04/04/19 04/13/19 History [Caltrate 600 Plus D3 Tablet] Famotidine [Pepcid] 10 mg PO DAILY 04/04/19 04/13/19 History INSULIN ASPART (NovoLOG) [NovoLOG 9 unit SQ TID-W/MEALS 04/04/19 04/13/19 History (formulary)] INSULIN ASPART (NovoLOG) [NovoLOG See Protocol SQ ACHS 04/04/19 04/13/19 History (formulary)] Levothyroxine Sodium 125 mcg PO DAILY@0600 04/04/19 04/13/19 History Loperamide [Imodium] 2 mg PO DAILY PRN 04/04/19 04/13/19 History Mag Hydrox/Al Hydrox/Simeth 15 ml PO Q6H PRN 04/04/19 04/13/19 History [Maalox] Aztreonam [Azactam] 2 gm IVPB Q12H 7 Days vial 04/07/19 04/13/19 Rx Metoprolol Tartrate [Lopressor] 50 mg PO TID tab 04/07/19 04/13/19 Rx Albuterol Nebulized [Ventolin 2.5 mg INHALATION RT-Q4H PRN 04/13/19 04/13/19 History Nebulized] Amiodarone [Cordarone] 200 mg PO BID@0800,1700 04/13/19 04/13/19 History Levocetirizine Dihydrochloride 5 mg PO DAILY PRN 04/13/19 04/13/19 History [Xyzal] Na Phos,M-B/Na Phos,Di-Ba [Fleet 133 ml RECTAL DAILY PRN 04/13/19 04/13/19 History Adult] guaiFENesin [guaiFENesin Oral 100 mg PO Q4H PRN 04/13/19 04/13/19 History Solution] Allergies Allergy/AdvReac Type Severity Reaction Status Date / Time cefdinir Allergy Severe Swelling Verified 04/13/19 09:31 Cephalosporins Allergy Unknown Verified 04/13/19 09:31 codeine Allergy Unknown Verified 04/13/19 09:31 doxycycline Allergy Nausea & Verified 04/13/19 09:31 Vomiting erythromycin base Allergy Nausea & Verified 04/13/19 09:31 Vomiting & Diarrhea/RASH Penicillins Allergy Rash/Hives Verified 04/13/19 09:31 trimethoprim [From Bactrim] Allergy Unknown Verified 04/13/19 09:31 azithromycin AdvReac Nausea & Verified 04/13/19 09:31 Vomiting hydrochlorothiazide AdvReac Nausea & Verified 04/13/19 09:31 [From Dyazide] Vomiting levofloxacin [From Levaquin] AdvReac Abdominal Verified 04/13/19 09:31 Pain moxifloxacin HCl AdvReac Unknown Verified 04/13/19 09:31 [From Avelox] sulfamethoxazole AdvReac Nausea & Verified 04/13/19 09:31 [From Bactrim] Vomiting & Diarrhea triamterene [From Dyazide] AdvReac Nausea & Verified 04/13/19 09:31 Vomiting Physical Exam Vitals: Vital Signs Temp Pulse Pulse Pulse Resp BP Pulse Ox 04/14/19 21:21 109/64 04/14/19 20:51 102 H 18 04/14/19 20:41 100 18 04/14/19 20:16 93/55 04/14/19 19:55 98.0 F 58 L 19 87/40 95 04/14/19 17:15 102 H 04/14/19 17:03 100 08/02/19 16:00 98.5 F 85 18 101/74 98 04/14/19 12:00 98.3 F 102 H 18 132/82 97 04/14/19 08:00 98.9 F 113 H 18 126/85 97 04/14/19 04:00 98.5 F 103 H 18 145/63 100 04/14/19 00:00 18 04/13/19 23:59 98.4 F 88 18 155/95 99 Intake and Output 04/14/19 04/14/19 04/14/19 06:59 14:59 22:59 Intake Total 120 Output Total 200 Balance -200 120 Intake: Oral 120 Output: Urine 200 Other: Voiding Method Bedside Commode Bedside Commode Bedside Commode Diaper Diaper Diaper Incontinent Incontinent Incontinent # Voids 1 0 1 Weight 64.5 kg 64.5 kg 74-year-old womanwho relates that she sti HEENT: Anicteric conjunctiva are pink and moist nasal mucosa grossly intact without significant lesions, there is no thrush. Dentition is poor Neck: The neck is supple without significant lymphadenopathy or thyromegaly. Lungs: Symmetrical bilateral air entry, crackles in the bilateral bases, expiratory wheezes and scattered, Heart: Irregularly irregular with an audible S1 and S2 2/6 systolic murmur left sternal border without change PMI is nondisplaced Abdomen: Obese, Positive bowel sounds soft and nontender without palpable masses or organomegaly. There was no guarding or rebound. Extremities: The upper and lower extremities reveal evidence of multiple areas of ecchymosis.right shoulder is tender without open ulcers Catheter left arm is intact without tenderness and is functioning well. No significant open ulcerations are seen. Lower extremity edema is improved from the last evaluation. Neuro: Awake alert oriented to person and place, remains a very poor historian. She does have difficulties with hearing also. Results CBC & Chem 7: 04/13/19 11:17 04/14/19 07:06 Labs: Abnormal Lab Results - Last 24 Hours (Table) 04/14/19 04/14/19 04/14/19 Range/Units 06:38 07:06 11:34 Sodium 136 L (137-145) mmol/L Carbon Dioxide 20 L (22-30) mmol/L BUN 28 H (7-17) mg/dL Glucose 102 H (74-99) mg/dL POC Glucose (mg/dL) 108 H 133 H (75-99) mg/dL 04/14/19 Range/Units 19:47 Sodium (137-145) mmol/L Carbon Dioxide (22-30) mmol/L BUN (7-17) mg/dL Glucose (74-99) mg/dL POC Glucose (mg/dL) 171 H (75-99) mg/dL Microbiology - Last 24 Hours (Table) 04/13/19 11:17 Blood Culture - Preliminary Blood No Growth after 24 hours Laboratory Results WBC 4.4 k/uL (3.8-10.6) 04/13/19 11:17 RBC 2.93 m/uL (3.80-5.40) L 04/13/19 11:17 Hgb 10.3 gm/dL (11.4-16.0) L 04/13/19 11:17 Hct 31.0 % (34.0-46.0) L 04/13/19 11:17 MCV 105.8 fL (80.0-100.0) H 04/13/19 11:17 MCH 35.0 pg (25.0-35.0) 04/13/19 11:17 MCHC 33.1 g/dL (31.0-37.0) 04/13/19 11:17 RDW 15.3 % (11.5-15.5) 04/13/19 11:17 Plt Count 110 k/uL (150-450) L 04/13/19 11:17 Neutrophils % 73 % 04/13/19 11:17 Lymphocytes % 14 % 04/13/19 11:17 Monocytes % 5 % 04/13/19 11:17 Eosinophils % 5 % 04/13/19 11:17 Basophils % 1 % 04/13/19 11:17 Neutrophils # 3.2 k/uL (1.3-7.7) 04/13/19 11:17 Lymphocytes # 0.6 k/uL (1.0-4.8) L 04/13/19 11:17 Monocytes # 0.2 k/uL (0-1.0) 04/13/19 11:17 Eosinophils # 0.2 k/uL (0-0.7) 04/13/19 11:17 Basophils # 0.0 k/uL (0-0.2) 04/13/19 11:17 Macrocytosis Moderate 04/13/19 11:17 PT 12.3 sec (9.0-12.0) H 04/13/19 11:17 INR 1.2 (<1.2) H 04/13/19 11:17 APTT 22.3 sec (22.0-30.0) 04/13/19 11:17 D-Dimer 0.69 mg/L FEU (<0.60) H 04/13/19 17:17 Sodium 136 mmol/L (137-145) L 04/14/19 07:06 Potassium 4.4 mmol/L (3.5-5.1) 04/14/19 07:06 Chloride 101 mmol/L (98-107) 04/14/19 07:06 Carbon Dioxide 20 mmol/L (22-30) L 04/14/19 07:06 Anion Gap 15 mmol/L 04/14/19 07:06 BUN 28 mg/dL (7-17) H 04/14/19 07:06 Creatinine 0.79 mg/dL (0.52-1.04) 04/14/19 07:06 Est GFR (CKD-EPI)AfAm 85 (>60 ml/min/1.73 sqM) 04/14/19 07:06 Est GFR (CKD-EPI)NonAf 74 (>60 ml/min/1.73 sqM) 04/14/19 07:06 Glucose 102 mg/dL (74-99) H 04/14/19 07:06 POC Glucose (mg/dL) 171 mg/dL (75-99) H 04/14/19 19:47 POC Glu Administrative Services Manager Katy Simmons 04/14/19 19:47 Calcium 9.7 mg/dL (8.4-10.2) 04/14/19 07:06 Total Bilirubin 0.6 mg/dL (0.2-1.3) 04/13/19 11:17 AST 33 U/L (14-36) 04/13/19 11:17 ALT 19 U/L (9-52) 04/13/19 11:17 Alkaline Phosphatase 89 U/L (38-126) 04/13/19 11:17 Creatine Kinase 23 U/L (30-135) L 04/13/19 11:17 Troponin I <0.012 ng/mL (0.000-0.034) 04/13/19 23:53 NT-Pro-B Natriuret Pep 7270 pg/mL 04/13/19 11:17 Total Protein 7.0 g/dL (6.3-8.2) 04/13/19 11:17 Albumin 3.9 g/dL (3.5-5.0) 04/13/19 11:17 Assessment and Plan (1) Urinary tract infection due to Proteus Narrative/Plan: 74-year-old woman who has multiple medical troubles including asthma that is oxygen dependent, congestive heart failure acute on chronic systolic type presents with increasing shortness of breath with evidence of bilateral pleural effusions. The patient is without fever significant leukocytosis and hence we does not appear to have pneumonia or congestive heart failure. She has just completed her course of intravenous antibiotic therapy with Azactam for Proteus urinary tract infection. She's having no symptoms of urinary tract infection at this time and her course of antibiotic may be completed. Pulmonary critical care is following in overload with diuresis pleural effusions will improve and have rapid improvement of her shortness of breath. would maintain her midline catheter while she is in hospital given her poor IV access. Current Visit: Yes Status: Acute Code(s): N39.0 - URINARY TRACT INFECTION, SITE NOT SPECIFIED; B96.4 - PROTEUS (MIRABILIS) (MORGANII) CAUSING DIS CLASSD [id number] SNOMED Code(s): 600028259 (2) Chronic atrial fibrillation Current Visit: Yes Status: Acute Code(s): I48.2 - CHRONIC ATRIAL FIBRILLATION SNOMED Code(s): 319931785
[2019-04-15 01:14] LABS: Glucose,Whole Blood 150 mg/dL (75-99)
[2019-04-15 01:37] LABS: Glucose,Whole Blood 125 mg/dL (75-99)
[2019-04-15] MEDS ORDERED: SODIUM CHLORIDE 0.9% 500 ML 500 ML IV ONE ×2 (02:42→16:47)
[2019-04-15] MEDS: DOPamine DRIP 800 MG in WATER FOR INJECTION 1 250ML.BAG IV SCH ×2 (02:46→13:51)
[2019-04-15 05:09] LABS: Basophils % (A) 0 %; Eosinophils % (A) 0 %; HCT 33.5 % (34.0-46.0); HGB 9.9 gm/dL (11.4-16.0); Hypochromasia Slight; Lymphocytes # (A) 0.5 k/uL (1.0-4.8); Lymphocytes % (A) 4 %; MCH 31.5 pg (25.0-35.0); MCHC 29.6 g/dL (31.0-37.0); MCV 106.6 fL (80.0-100.0); Macrocytosis Moderate; Monocytes # (A) 0.7 k/uL (0-1.0); Monocytes % (A) 5 %; Neutrophils # (A) 12.4 k/uL (1.3-7.7); Neutrophils % (A) 89 %; Platelet Count 166 k/uL (150-450); Poikilocytosis Slight; RBC 3.14 m/uL (3.80-5.40)
[2019-04-15 05:18] LABS: Calcium 9.5 mg/dL (8.4-10.2); Potassium 5.4 mmol/L (3.5-5.1)
[2019-04-15 06:42] LABS: Glucose,Whole Blood 114 mg/dL (75-99)
[2019-04-15] MEDS: INSULIN DETEMIR (LEVEMIR) 100 UNIT/ML SYR SQ SCH (06:42)
[2019-04-15] MEDS: INSULIN ASPART (NovoLOG) 100 UNIT/ML VIAL SQ SCH ×4 (06:43→20:56)
[2019-04-15] MEDS: LEVOTHYROXINE 125 MCG TAB PO SCH (07:29)
--- NOTE | 2019-04-15 07:36 | XR ---
EXAMINATION TYPE: XR chest 1V portable DATE OF EXAM: 04/15/2019 HISTORY: CHF . REFERENCE: Previous study dated 04/14/2019. FINDINGS: The heart is enlarged. There are calcified lymph nodes in both azra. There are small, bilat eral effusions. There is some left basilar airspace disease. There is a smaller degree of airspace di sease in the right middle lobe. No convincing edema is identified. IMPRESSION: 1. CARDIOMEGALY. 2. EVIDENCE OF OLD GRANULOMATOUS DISEASE. 3. BILATERAL AIRSPACE DISEASE. 4. SMALL, BILATERAL EFFUSIONS.
[2019-04-15] MEDS: METOPROLOL TARTRATE 50 MG TAB PO SCH ×2 (08:23→16:15)
[2019-04-15] MEDS: SYMBICORT 160-4.5 MCG INHALER INHALATION SCH ×2 (08:24→19:00)
[2019-04-15] MEDS: FUROSEMIDE 10 MG/ML 4 ML VIAL IV SCH ×2 (09:21→10:03)
[2019-04-15] MEDS: FAMOTIDINE 20 MG TAB PO SCH (09:23)
[2019-04-15] MEDS: ACETAMINOPHEN TAB 500 MG TAB PO PRN (09:23)
[2019-04-15] MEDS: CARBIDOPA-LEVODOPA 25-100 MG 1 EACH TAB PO SCH ×3 (09:24→21:43)
[2019-04-15] MEDS: DOCUSATE 100 MG CAP PO SCH ×2 (09:26→16:24)
[2019-04-15] MEDS ORDERED: MORPHINE SULFATE 2 MG/ML SYRINGE IVP PRN (09:49)
[2019-04-15] MEDS: FERROUS SULFATE 325 MG TAB PO SCH (09:53)
[2019-04-15 11:26] LABS: Calcium 9.5 mg/dL (8.4-10.2); Potassium 5.5 mmol/L (3.5-5.1)
--- NOTE | 2019-04-15 11:37 | P.PN ---
Subjective Progress Note Date: 04/15/19 Principal diagnosis: Acute exacerbation of diastolic congestive heart failure and bilateral pleural effusions. This is a very pleasant 74-year-old female patient who follows with Dr. Odonnell as her primary care physician. She has a history of chronic atrial fibrillation on chronic anticoagulation, chronic congestive heart failure, COPD, diabetes mellitus type 2, hypertension, hyperlipidemia, chronic kidney disease, hypothyroidism, Parkinson's disease, previous stroke with left eye blindness, DJD, gait dysfunction, ulcerative colitis, recurrent urinary tract infections with previous history of vancomycin-resistant enterococcus UTI. She had recently been discharged from here for urinary tract infection She has been residing at an extended care facility the past 8 months. She was brought in today with shortness of breath, right-sided chest pain. CT angiogram was perfo rmed and showed a sizable bilateral pleural effusions and consolidations consistent with congestive heart failure. No central pulmonary embolism was noted. There is hepatic cirrhosis. She is seen today in consultation in the observation unit. Currently sitting up at the bedside. Awake and alert in no acute distress. Maintaining O2 saturations up to 100% on 2 L/m per nasal cannula. She's afebrile. Hemodynamically stable. White count 4.4. Hemoglobin 10.3. Platelet count 110,000. INR 1.2. Creatinine 0.70. Troponin negative. ProBNP 7270. There is bilateral lower extremity edema. Patient was reevaluated today on 04/14/2019, feeling better, breathing easier, however she has some right-sided chest wall pain which is reproducible, and she has some tenderness over the right anterior chest wall in the right parasternal area. Patient states that her shortness of breath is better, her chest x-ray continues to show congestive heart failure, but not much pleural effusions as noted on CT of the chest and ultrasound of the chest done yesterday. Patient remains on diuretics, her electrolytes are normal today, BUN is 28 creatinine is 0.79. Furosemide remains at 40 mg IV push every 8 hours. Considering the improvement clinically and considering the chest x-ray findings, no plans for thoracentesis. Reevaluated today on 04/15/2019, patient was transferred to the ICU last night mos tly because of profound bradycardia, hypotension, requiring placement on dopamine, she is presently on 14 mcg/kg/m, and she was given few fluid boluses yesterday. This morning, the patient seems to be significantly improved, she is hemodynamically stable but requiring dopamine, her urine output is poor, her renal functioning is a bit worse, hence will cut down the Lasix dose from 40 mg IV push every 8 hours to 40 mg daily. Chest x-ray shows some interstitial edema slightly worse compared to yesterday, and that is because of her fluid boluses, patient will receive a dose of Lasix this morning. Again based on the chest x- ray findings, no need for thoracentesis at this point. Patient is complaining of right chest wall pain, has been on Toradol, but because of her renal function, Toradol has to be placed on hold. Potassium today is 5.5 BUN is 40 creatinine 2.16, her urine output is down to 25 ML per hour this morning. Her bradycardia responded well to dopamine and she is presently in atrial fibrillation with fairly controlled ventricular rate. Objective - Vital Signs Vital signs: Vital Signs Temp 97.4 F L 04/15/19 08:00 Pulse 64 04/15/19 11:00 Resp 23 04/15/19 11:00 BP 85/49 04/15/19 11:00 Pulse Ox 96 04/15/19 11:00 Intake & Output 04/14/19 04/15/19 04/15/19 18:59 06:59 18:59 Intake Total 120 724.733 295.942 Output Total 125 25 Balance 120 599.733 270.942 Weight 64.5 kg 61.3 kg Intake: IV 700 190 .9 200 190 Sodium Chloride 0.9% 500 500 ml 500 ml @ 999 mls/hr IV .Q31M [facility] Rx#:[id number] Intake, IV Titration 24.733 105.942 Amount DOPamine DRIP 800 mg In 24.733 105.942 Water For Injection 1 250ml.bag @ 5 MCG/KG/MIN 6.047 mls/hr IV .Q24H COUNT INCLUDES THE [facility] Rx#:[id number] Oral 120 Output: Urine 125 25 Other: Voiding Method Bedside Commode Indwelling Catheter Diaper Incontinent # Voids 1 - Exam Physical Exam: 74-year-old female, pleasant, in no distress. On 2 L nasal cannula, comfortable, complaining of right-sided parasternal chest wall pain Head: Atraumatic, normocephalic. HEENT:[Neck is supple.] [No neck masses.] [No thyromegaly.] [No JVD.] Dry mucous membranes noted. PERRLA, EOMI, no icterus. Chest: [Symmetrical chest expansion, crackles at the bases, no rhonchi and no wheezes.] Cardiac Exam: [Irregular irregular rhythm. Normal S1 and S2, no S3 gallop, no murmur.] Abdomen: [Soft, nontender, no megaly, no rebound, no guarding, normal bowel sounds.] Extremities: [No clubbing, trace of bipedal edema, no cyanosis.] Neurological Exam: [No focal neurologic deficit.] Psychiatric: Normal mood, affect normal. Skin: No rashes. - Labs CBC & Chem 7: 04/15/19 04:28 04/15/19 10:43 Labs: Abnormal Lab Results - Last 24 Hours (Table) 04/14/19 04/14/19 04/15/19 Range/Units 11:34 19:47 01:03 WBC (3.8-10.6) k/uL RBC (3.80-5.40) m/uL Hgb (11.4-16.0) gm/dL Hct (34.0-46.0) % MCV (80.0-100.0) fL MCHC (31.0-37.0) g/dL Neutrophils # (1.3-7.7) k/uL Lymphocytes # (1.0-4.8) k/uL Sodium (137-145) mmol/L Potassium (3.5-5.1) mmol/L Carbon Dioxide (22-30) mmol/L BUN (7-17) mg/dL Creatinine (0.52-1.04) mg/dL Glucose (74-99) mg/dL POC Glucose (mg/dL) 133 H 171 H 150 H (75-99) mg/dL 04/15/19 04/15/19 04/15/19 Range/Units 01:35 04:28 04:28 WBC 14.0 H (3.8-10.6) k/uL RBC 3.14 L (3.80-5.40) m/uL Hgb 9.9 L (11.4-16.0) gm/dL Hct 33.5 L (34.0-46.0) % MCV 106.6 H (80.0-100.0) fL MCHC 29.6 L (31.0-37.0) g/dL Neutrophils # 12.4 H (1.3-7.7) k/uL Lymphocytes # 0.5 L (1.0-4.8) k/uL Sodium 133 L (137-145) mmol/L Potassium 5.4 H (3.5-5.1) mmol/L Carbon Dioxide 18 L (22-30) mmol/L BUN 37 H (7-17) mg/dL Creatinine 1.75 H (0.52-1.04) mg/dL Glucose 104 H (74-99) mg/dL POC Glucose (mg/dL) 125 H (75-99) mg/dL 04/15/19 04/15/19 Range/Units 06:41 10:43 WBC (3.8-10.6) k/uL RBC (3.80-5.40) m/uL Hgb (11.4-16.0) gm/dL Hct (34.0-46.0) % MCV (80.0-100.0) fL MCHC (31.0-37.0) g/dL Neutrophils # (1.3-7.7) k/uL Lymphocytes # (1.0-4.8) k/uL Sodium 135 L (137-145) mmol/L Potassium 5.5 H (3.5-5.1) mmol/L Carbon Dioxide 19 L (22-30) mmol/L BUN 40 H (7-17) mg/dL Creatinine 2.16 H (0.52-1.04) mg/dL Glucose 141 H (74-99) mg/dL POC Glucose (mg/dL) 114 H (75-99) mg/dL Microbiology - Last 24 Hours (Table) 04/13/19 11:17 Blood Culture - Preliminary Blood No Growth after 24 hours Assessment and Plan Assessment: Impression: 1 acute hypoxic respiratory failure secondary to acute exacerbation of diastolic congestive heart failure. With bilateral pleural effusions, responding to diuresis, hence no need for thoracentesis. The dose of diuretics will be cut down to 40 mg daily instead of 40 mg every 8 hours, mostly because of her renal status, and the patient was relatively hypotensive last night with bradycardia requiring placement on dopamine. 2 chronic atrial fibrillation, poor tolerance to anticoagulation therapy. 3 history of chronic and recurrent urinary tract infections, being evaluated by Dr. Pratt. 4 type 2 diabetes 5 COPD 6 hypothyroidism 7 previous CVA and left eye blindness 8 history of ulcerative colitis 9 history of kidney injury, presently resolved. Patient has normal renal profile. Recommendation: Continue dopamine, titrate down to possibly 2.5 mcg/kg/m, continue diuretics however cut down the dose, continue to monitor electrolytes including potassium and renal profile, continue bronchodilators as listed, continue Pepcid, continue to monitor daily chest x-rays for congestive heart failure, will follow. No plans to transfer the patient out of the ICU today. Prognosis remains guarded. Time with Patient: Less than 30
[2019-04-15 11:52] LABS: Glucose,Whole Blood 139 mg/dL (75-99)
[2019-04-15] MEDS ORDERED: SODIUM BICARB 8.4% 50 ML SYR (1 MEQ/ML) IV STA (12:09)
[2019-04-15] MEDS ORDERED: DEXTROSE 50% SYRINGE 50 ML IVP STA (12:09)
[2019-04-15] MEDS ORDERED: INSULIN REGULAR 100 UNIT/ML VIAL IV ONE ×2 (12:10→16:48)
[2019-04-15] MEDS ORDERED: HYDROmorphone 0.5 MG/0.5 ML SYRINGE IVP PRN (12:11)
[2019-04-15] MEDS ORDERED: DEXTROSE 10 % IN WATER 250 ML IV ONE (12:12)
--- NOTE | 2019-04-15 12:42 | P.PN ---
<Abril Coyne - Last Filed: 04/15/19 12:13> Subjective Progress Note Date: 04/15/19 Principal diagnosis: CHF The patient is a 74-year-old female who is currently admitted to the hospital for CHF exacerbation and atrial fibrillation. She was transferred to ICU overnight for bradycardia and hypotension. She received approximately 700 mL of saline bolus and was placed on dopamine drip. Per nurse her heart rates in the 30s and 40s, however telemetry strips show heart rate of 45. Yesterday amiodarone was discontinued and she was started on verapamil 40 mg 3 times daily and continued on her beta elisabeth. Her evening dose of beta elisabeth was held, however her heart rate continued to drop. Currently she states she is having right shoulder discomfort and would like some pain medication. She denies any chest discomfort, palpitations, dyspnea, or dizziness. GENERAL: Well-appearing, well-nourished and in no acute distress. NECK: Supple without JVD or thyromegaly. LUNGS: Breath sounds clear to auscultation bilaterally. Respiration equal and unlabored. No wheezes, rales or rhonchi. HEART: Irregular rate and rhythm. Systolic murmur audible. S1 and S2 heard. EXTREMITIES: Normal range of motion, no edema. No clubbing or cyanosis. Peripheral pulses intact and strong. Echocardiogram showed preserved LV function with moderate MAC, moderate mitral stenosis, moderate to severe tricuspid regurg, and severe pulmonary hypertension Labs: WBC 14.0, hemoglobin 9.9, hematocrit 33.5, platelet 166, sodium 133, potassium 5.4, BUN 37, creatinine 1.78, magnesium 2.1 Redraw BMP shows sodium 135, potassium 5.5, BUN 40, creatinine 2.16 Assessment: #1 atrial fibrillation, bradycardia #2 acute on chronic diastolic heart failure #3 pleural effusions #4 MARQUITA, GFR 22 Plan: Recommend holding off on IV Lasix, as kidney function continues to climb. Resume metoprolol once weaned off Dopamine infusion. Rate control for atrial fibrillation. Recommend anticoagulation. Objective - Vital Signs Vital signs: Vital Signs Temp 97.4 F L 04/15/19 08:00 Pulse 64 04/15/19 11:00 Resp 23 04/15/19 11:00 BP 85/49 04/15/19 11:00 Pulse Ox 96 04/15/19 11:00 Intake & Output 04/14/19 04/15/19 04/15/19 18:59 06:59 18:59 Intake Total 120 724.733 326.076 Output Total 125 25 Balance 120 599.733 301.076 Weight 64.5 kg 61.3 kg Intake: IV 700 190 .9 200 190 Sodium Chloride 0.9% 500 500 ml 500 ml @ 999 mls/hr IV .Q31M [facility] Rx#:[id number] Intake, IV Titration 24.733 136.076 Amount DOPamine DRIP 800 mg In 24.733 136.076 Water For Injection 1 250ml.bag @ 5 MCG/KG/MIN 6.047 mls/hr IV .Q24H [facility] Rx#:[id number] Oral 120 Output: Urine 125 25 Other: Voiding Method Bedside Commode Indwelling Catheter Indwelling Catheter Diaper Incontinent # Voids 1 - Labs CBC & Chem 7: 04/15/19 04:28 04/15/19 10:43 Labs: Abnormal Lab Results - Last 24 Hours (Table) 04/14/19 04/15/19 04/15/19 Range/Units 19:47 01:03 01:35 WBC (3.8-10.6) k/uL RBC (3.80-5.40) m/uL Hgb (11.4-16.0) gm/dL Hct (34.0-46.0) % MCV (80.0-100.0) fL MCHC (31.0-37.0) g/dL Neutrophils # (1.3-7.7) k/uL Lymphocytes # (1.0-4.8) k/uL Sodium (137-145) mmol/L Potassium (3.5-5.1) mmol/L Carbon Dioxide (22-30) mmol/L BUN (7-17) mg/dL Creatinine (0.52-1.04) mg/dL Glucose (74-99) mg/dL POC Glucose (mg/dL) 171 H 150 H 125 H (75-99) mg/dL 04/15/19 04/15/19 04/15/19 Range/Units 04:28 04:28 06:41 WBC 14.0 H (3.8-10.6) k/uL RBC 3.14 L (3.80-5.40) m/uL Hgb 9.9 L (11.4-16.0) gm/dL Hct 33.5 L (34.0-46.0) % MCV 106.6 H (80.0-100.0) fL MCHC 29.6 L (31.0-37.0) g/dL Neutrophils # 12.4 H (1.3-7.7) k/uL Lymphocytes # 0.5 L (1.0-4.8) k/uL Sodium 133 L (137-145) mmol/L Potassium 5.4 H (3.5-5.1) mmol/L Carbon Dioxide 18 L (22-30) mmol/L BUN 37 H (7-17) mg/dL Creatinine 1.75 H (0.52-1.04) mg/dL Glucose 104 H (74-99) mg/dL POC Glucose (mg/dL) 114 H (75-99) mg/dL 04/15/19 04/15/19 Range/Units 10:43 11:50 WBC (3.8-10.6) k/uL RBC (3.80-5.40) m/uL Hgb (11.4-16.0) gm/dL Hct (34.0-46.0) % MCV (80.0-100.0) fL MCHC (31.0-37.0) g/dL Neutrophils # (1.3-7.7) k/uL Lymphocytes # (1.0-4.8) k/uL Sodium 135 L (137-145) mmol/L Potassium 5.5 H (3.5-5.1) mmol/L Carbon Dioxide 19 L (22-30) mmol/L BUN 40 H (7-17) mg/dL Creatinine 2.16 H (0.52-1.04) mg/dL Glucose 141 H (74-99) mg/dL POC Glucose (mg/dL) 139 H (75-99) mg/dL Microbiology - Last 24 Hours (Table) 04/13/19 11:17 Blood Culture - Preliminary Blood No Growth after 24 hours <Mello Last - Last Filed: 04/15/19 16:28> Subjective Patient evaluated this morning Admitted with shortness of breath bilateral pleural effusions anasarca ascites 2-D echo showed preserved LV systolic function with an IVC dimension of normal size despite a PA pressure that is quite high Moderate mitral stenosis was noted Atrial fibrillation, persistent, right bundle branch block pattern She was diuresed for the treatment of fluid overload with bilateral pleural effusions and ascites Amiodarone was discontinued and yesterday verapamil was added in addition to beta blockers Subsequently she became bradycardic and hypotensive, and is on presses Her kidney functions have steadily worsened on IV LasixWith hyperkalemia From a cardiac standpoint she is rate controlled atrial fibrillation and she also has moderate mitral stenosis but this lady is intravascularly volume deplet ed with third spacing and follow-up bilateral pleural effusions and ascites The combination of intravascular volume depletion, beta blockers and verapamil and amiodarone may have contributed to this hypertension Her initial CT scan when she came in not show any pulmonary embolism at least essentially Not sure why this lady is not an anticoagulation. She should be anticoagulated unless is a clear contraindication. If there are no plans for any thoracentesis or Paracentesis, anticoagulation should be initiated Objective - Vital Signs Vital signs: Vital Signs Temp 96.8 F L 04/15/19 16:00 Pulse 67 04/15/19 16:00 Resp 16 04/15/19 16:00 BP 95/64 04/15/19 16:00 Pulse Ox 96 04/15/19 16:00 Intake & Output 04/14/19 04/15/19 04/15/19 18:59 06:59 18:59 Intake Total 120 724.733 502.061 Output Total 125 25 Balance 120 599.733 477.061 Weight 64.5 kg 61.3 kg Intake: IV 700 270 .9 200 270 Sodium Chloride 0.9% 500 500 ml 500 ml @ 999 mls/hr IV .Q31M [facility] Rx#:[id number] Intake, IV Titration 24.733 232.061 Amount DOPamine DRIP 800 mg In 24.733 232.061 Water For Injection 1 250ml.bag @ 5 MCG/KG/MIN 6.047 mls/hr IV .Q24H [facility] Rx#:[id number] Oral 120 Output: Urine 125 25 Other: Voiding Method Bedside Commode Indwelling Catheter Indwelling Catheter Diaper Incontinent # Voids 1 - Labs CBC & Chem 7: 04/15/19 04:28 04/15/19 14:37 Labs: Abnormal Lab Results - Last 24 Hours (Table) 04/14/19 04/15/19 04/15/19 Range/Units 19:47 01:03 01:35 WBC (3.8-10.6) k/uL RBC (3.80-5.40) m/uL Hgb (11.4-16.0) gm/dL Hct (34.0-46.0) % MCV (80.0-100.0) fL MCHC (31.0-37.0) g/dL Neutrophils # (1.3-7.7) k/uL Lymphocytes # (1.0-4.8) k/uL Sodium (137-145) mmol/L Potassium (3.5-5.1) mmol/L Carbon Dioxide (22-30) mmol/L BUN (7-17) mg/dL Creatinine (0.52-1.04) mg/dL Glucose (74-99) mg/dL POC Glucose (mg/dL) 171 H 150 H 125 H (75-99) mg/dL 04/15/19 04/15/19 04/15/19 Range/Units 04:28 04:28 06:41 WBC 14.0 H (3.8-10.6) k/uL RBC 3.14 L (3.80-5.40) m/uL Hgb 9.9 L (11.4-16.0) gm/dL Hct 33.5 L (34.0-46.0) % MCV 106.6 H (80.0-100.0) fL MCHC 29.6 L (31.0-37.0) g/dL Neutrophils # 12.4 H (1.3-7.7) k/uL Lymphocytes # 0.5 L (1.0-4.8) k/uL Sodium 133 L (137-145) mmol/L Potassium 5.4 H (3.5-5.1) mmol/L Carbon Dioxide 18 L (22-30) mmol/L BUN 37 H (7-17) mg/dL Creatinine 1.75 H (0.52-1.04) mg/dL Glucose 104 H (74-99) mg/dL POC Glucose (mg/dL) 114 H (75-99) mg/dL 04/15/19 04/15/19 04/15/19 Range/Units 10:43 11:50 14:37 WBC (3.8-10.6) k/uL RBC (3.80-5.40) m/uL Hgb (11.4-16.0) gm/dL Hct (34.0-46.0) % MCV (80.0-100.0) fL MCHC (31.0-37.0) g/dL Neutrophils # (1.3-7.7) k/uL Lymphocytes # (1.0-4.8) k/uL Sodium 135 L 134 L (137-145) mmol/L Potassium 5.5 H 6.0 H (3.5-5.1) mmol/L Carbon Dioxide 19 L 17 L (22-30) mmol/L BUN 40 H 43 H (7-17) mg/dL Creatinine 2.16 H 2.12 H (0.52-1.04) mg/dL Glucose 141 H 166 H (74-99) mg/dL POC Glucose (mg/dL) 139 H (75-99) mg/dL 04/15/19 Range/Units 14:41 WBC (3.8-10.6) k/uL RBC (3.80-5.40) m/uL Hgb (11.4-16.0) gm/dL Hct (34.0-46.0) % MCV (80.0-100.0) fL MCHC (31.0-37.0) g/dL Neutrophils # (1.3-7.7) k/uL Lymphocytes # (1.0-4.8) k/uL Sodium (137-145) mmol/L Potassium (3.5-5.1) mmol/L Carbon Dioxide (22-30) mmol/L BUN (7-17) mg/dL Creatinine (0.52-1.04) mg/dL Glucose (74-99) mg/dL POC Glucose (mg/dL) 190 H (75-99) mg/dL Microbiology - Last 24 Hours (Table) 04/13/19 11:17 Blood Culture - Preliminary Blood No Growth after 48 hours
[2019-04-15] MEDS: Teriparatide [Forteo] SQ SCH (12:43)
[2019-04-15] MEDS: MAGNESIUM OXIDE 400 MG TAB PO SCH ×2 (12:43→16:30)
[2019-04-15] MEDS: THIAMINE 100 MG TAB PO SCH (12:48)
[2019-04-15] MEDS: VENLAFAXINE HCL ER 75 MG CAP PO SCH (12:53)
--- NOTE | 2019-04-15 13:38 | P.PN ---
Subjective 74-year-old female was admitted to for bilateral pleural effusion short is a resident secondary to that a possibility of pneumonia is low. Patient is on antibiotics for UTI. Patient heart rate is higher because of which are verapamil dose is being increased patient will be continued on Lasix today. Possibly of discharge to subacute rehabilitation tomorrow. 04/15/2019 Patient became hypotensive, requiring dobutamine drip to secondary to excessive diuretic therapy patient still has mild pleural effusions from heart failure but had respiratory status at this time and diuretic therapy will be discontinued continue with dopamine. She is hyperkalemic because of renal dysfunction. Patient will receive IV insulin for hyperkalemia patient does have leukocytosis which appears to be reactive. Patient complaining of musculoskeletal chest pain initially received morphine which will be switched to very low-dose of Dilaudid because of the renal dysfunction Constitutional: Denied any fatigue denied any fever. Cardio vascular: Complaining of pain in the chest which is Mus[place] skeletal Gastrointestinal denied any nausea vomiting Pulmonary: Denied any shortness of breath cough Neurologic denied any new focal deficits All inpatient medications were reviewed and appropriate changes in these medications as dictated in the interval history and assessment and plan. Objective - Vital Signs Vital signs: Vital Signs Temp 97.4 F L 04/15/19 08:00 Pulse 74 04/15/19 13:00 Resp 20 04/15/19 13:00 BP 84/51 04/15/19 13:00 Pulse Ox 97 04/15/19 13:00 Intake & Output 04/14/19 04/15/19 04/15/19 18:59 06:59 18:59 Intake Total 120 724.733 371.473 Output Total 125 25 Balance 120 599.733 346.473 Weight 64.5 kg 61.3 kg Intake: IV 700 210 .9 200 210 Sodium Chloride 0.9% 500 500 ml 500 ml @ 999 mls/hr IV .Q31M [facility] Rx#:[id number] Intake, IV Titration 24.733 161.473 Amount DOPamine DRIP 800 mg In 24.733 161.473 Water For Injection 1 250ml.bag @ 5 MCG/KG/MIN 6.047 mls/hr IV .Q24H [facility] Rx#:[id number] Oral 120 Output: Urine 125 25 Other: Voiding Method Bedside Commode Indwelling Catheter Indwelling Catheter Diaper Incontinent # Voids 1 - Exam PHYSICAL EXAMINATION: GENERAL: The patient is alert and oriented x3, not in any acute distress. Well developed, well nourished. Does have tremor which appears to be chronic and secondary to Parkinson's HEENT: Pupils are round and equally reacting to light. EOMI. No scleral icterus. No conjunctival pallor. Normocephalic, atraumatic. No pharyngeal erythema. No thyromegaly. CARDIOVASCULAR: S1 and S2 present. No murmurs, rubs, or gallops. PULMONARY: Chest is clear to auscultation, no wheezing or crackles. ABDOMEN: Soft, nontender, nondistended, normoactive bowel sounds. No palpable organomegaly. MUSCULOSKELETAL: No joint swelling or deformity. EXTREMITIES: No cyanosis, clubbing, or pedal edema. NEUROLOGICAL: Gross neurological examination did not reveal any focal deficits. SKIN: No rashes. - Labs CBC & Chem 7: 04/15/19 04:28 04/15/19 10:43 Labs: Abnormal Lab Results - Last 24 Hours (Table) 04/14/19 04/15/19 04/15/19 Range/Units 19:47 01:03 01:35 WBC (3.8-10.6) k/uL RBC (3.80-5.40) m/uL Hgb (11.4-16.0) gm/dL Hct (34.0-46.0) % MCV (80.0-100.0) fL MCHC (31.0-37.0) g/dL Neutrophils # (1.3-7.7) k/uL Lymphocytes # (1.0-4.8) k/uL Sodium (137-145) mmol/L Potassium (3.5-5.1) mmol/L Carbon Dioxide (22-30) mmol/L BUN (7-17) mg/dL Creatinine (0.52-1.04) mg/dL Glucose (74-99) mg/dL POC Glucose (mg/dL) 171 H 150 H 125 H (75-99) mg/dL 04/15/19 04/15/19 04/15/19 Range/Units 04:28 04:28 06:41 WBC 14.0 H (3.8-10.6) k/uL RBC 3.14 L (3.80-5.40) m/uL Hgb 9.9 L (11.4-16.0) gm/dL Hct 33.5 L (34.0-46.0) % MCV 106.6 H (80.0-100.0) fL MCHC 29.6 L (31.0-37.0) g/dL Neutrophils # 12.4 H (1.3-7.7) k/uL Lymphocytes # 0.5 L (1.0-4.8) k/uL Sodium 133 L (137-145) mmol/L Potassium 5.4 H (3.5-5.1) mmol/L Carbon Dioxide 18 L (22-30) mmol/L BUN 37 H (7-17) mg/dL Creatinine 1.75 H (0.52-1.04) mg/dL Glucose 104 H (74-99) mg/dL POC Glucose (mg/dL) 114 H (75-99) mg/dL 04/15/19 04/15/19 Range/Units 10:43 11:50 WBC (3.8-10.6) k/uL RBC (3.80-5.40) m/uL Hgb (11.4-16.0) gm/dL Hct (34.0-46.0) % MCV (80.0-100.0) fL MCHC (31.0-37.0) g/dL Neutrophils # (1.3-7.7) k/uL Lymphocytes # (1.0-4.8) k/uL Sodium 135 L (137-145) mmol/L Potassium 5.5 H (3.5-5.1) mmol/L Carbon Dioxide 19 L (22-30) mmol/L BUN 40 H (7-17) mg/dL Creatinine 2.16 H (0.52-1.04) mg/dL Glucose 141 H (74-99) mg/dL POC Glucose (mg/dL) 139 H (75-99) mg/dL Microbiology - Last 24 Hours (Table) 04/13/19 11:17 Blood Culture - Preliminary Blood No Growth after 24 hours Assessment and Plan Plan: --Hypovolemic shock secondary to excessive diuretic therapy which will be discontinued and patient will be continued on dobutamine -Hyperkalemia secondary to acute renal failure Acute renal failure secondary to hypovolemia from excessive diuretic therapy -Shortness of breath, chest pain: Rule out acute current syndromes patient's chest pain is musculoskeletal in nature -Low possibility of pneumonia, patient completed antibiotic therapy for urinary tract infection and medics were discontinued -Moderate pulmonary hypertension -COPD with minimal exacerbation continue with inhaled steroids. -Atrial fibrillation presently rate controlled sinus rhythm: Continue her home regimen, patient is not on antiplatelet correlation because of her fall risk and further management regarding this as per cardiology -Type 2 diabetes mellitus patient will be resumed on her home regimen titrate the blood sugars recommending depending on the blood sugars readings here -Gastroesophageal reflux disease -Hypertension hyperlipidemia Hypothyroidism -Parkinson's patient patient was resumed on parkinsonian medications
[2019-04-15] MEDS ORDERED: NALOXONE 0.4 MG/ML 1 ML VIAL IV PRN (14:30)
[2019-04-15 14:45] LABS: Glucose,Whole Blood 190 mg/dL (75-99)
[2019-04-15] MEDS: CALCIUM CARB-VIT D 500MG-200UN 1 EACH TAB PO SCH (16:30)
[2019-04-15] MEDS: ASPIRIN 81 MG PO SCH (16:30)
[2019-04-15 16:31] LABS: Glucose,Whole Blood 163 mg/dL (75-99)
[2019-04-15] MEDS ORDERED: SODIUM POLYSTYRENE SULFONATE 15 GM/60 ML BOTTLE PO ONE (16:47)
[2019-04-15] MEDS ORDERED: FUROSEMIDE 10 MG/ML 10 ML VIAL IV STA (16:47)
[2019-04-15] MEDS ORDERED: DEXTROSE 10 % IN WATER 125 ML IV STA (16:48)
[2019-04-15] MEDS: SODIUM CHLORIDE 0.45% 1,000 ML with SODIUM BICARB (1 MEQ/ML) 100 ML IV SCH ×2 (18:09)
[2019-04-15 18:18] LABS: Glucose,Whole Blood 186 mg/dL (75-99)
[2019-04-15 19:47] LABS: Calcium 8.6 mg/dL (8.4-10.2); Potassium 4.7 mmol/L (3.5-5.1)
[2019-04-15] MEDS: METOPROLOL TARTRATE 12.5 MG TAB PO SCH (20:04)
[2019-04-15 20:37] LABS: Glucose,Whole Blood 153 mg/dL (75-99)
[2019-04-15] MEDS ORDERED: ONDANSETRON 4 MG/2 ML VIAL IVP PRN (20:55)
[2019-04-15] MEDS: traZODone HCL 50 MG TAB PO SCH (21:41)
[2019-04-15] MEDS: OXYBUTYNIN XL 5 MG TAB.ER.24 PO SCH (21:43)
[2019-04-15] MEDS: ATORVASTATIN 10 MG TAB PO SCH (21:43)
[2019-04-16] MEDS: DOPamine DRIP 800 MG in WATER FOR INJECTION 1 250ML.BAG IV SCH (04:01)
[2019-04-16 06:00] LABS: Anisocytosis Slight; HCT 31.4 % (34.0-46.0); HGB 10.2 gm/dL (11.4-16.0); MCH 35.2 pg (25.0-35.0); MCHC 32.5 g/dL (31.0-37.0); MCV 108.1 fL (80.0-100.0); Macrocytosis Marked; Mean Platelet Volume 7.8; Platelet Count 168 k/uL (150-450); Poikilocytosis Slight; RDW 16.5 % (11.5-15.5)
[2019-04-16 06:08] LABS: Calcium 8.7 mg/dL (8.4-10.2); Potassium 5.2 mmol/L (3.5-5.1)
--- NOTE | 2019-04-16 06:20 | XR ---
EXAMINATION TYPE: XR chest 1V DATE OF EXAM: 04/16/2019 HISTORY: assess lungs. REFERENCE: Previous study dated 04/15/2019. FINDINGS: The heart is enlarged. There are calcified hilar lymph nodes present bilaterally. There is left basilar airspace disease. There are small, bilateral effusions. There continues to be some atele ctatic change in the right midlung. IMPRESSION: 1. CARDIOMEGALY. 2. EVIDENCE OF OLD GRANULOMATOUS DISEASE. 3. BILATERAL AIRSPACE DISEASE, GREATER ON THE LEFT THAN THE RIGHT. 4 SMALL, BILATERAL EFFUSIONS.
[2019-04-16] MEDS: LEVOTHYROXINE 125 MCG TAB PO SCH (06:38)
[2019-04-16 06:54] LABS: Glucose,Whole Blood 104 mg/dL (75-99)
[2019-04-16 07:01] LABS: Band Neutrophils % 15 %; Eosinophils # (M) 0.11 k/uL (0-0.7); Lymphocytes # (M) 0.34 k/uL (1.0-4.8); Metamyelocytes # (M) 0.56 k/uL (0); Metamyelocytes % 5 %; Myelocytes # (M) 0.11 k/uL (0); Myelocytes % 1 %; Neutrophils % (M) 68 %; Nucleated Red Blood Cells 1 /100 WBC (0-0); Total Cells Counted 200; WBC 11.2 k/uL (3.8-10.6)
[2019-04-16] MEDS: INSULIN ASPART (NovoLOG) 100 UNIT/ML VIAL SQ SCH ×4 (07:04→20:40)
[2019-04-16] MEDS: SYMBICORT 160-4.5 MCG INHALER INHALATION SCH ×2 (07:40→20:05)
[2019-04-16] MEDS: Teriparatide [Forteo] SQ SCH (07:59)
[2019-04-16] MEDS: DOCUSATE 100 MG CAP PO SCH ×2 (07:59→16:39)
--- NOTE | 2019-04-16 08:19 | CONS ---
CONSULTATION REASON FOR CONSULT: Renal failure, poor urine output. HISTORY OF PRESENT ILLNESS: Patient is a 74-year-old female who was initially admitted on 04/13/2019 with complaints of shortness of breath. The patient was volume overloaded and was treated for diastolic congestive heart failure. She was diuresed. Yesterday, patient was hypotensive. Her heart rate had dropped down as well and patient was brought into the ICU. She was started on dopamine which was up to about 14 mics. This morning it is up at 20 mcgs. The patient has not had any significant urine output. Urine output has been at 0 for the last few hours. The chest x-ray does show bilateral pleural effusions. The patient did get a fluid bolus yesterday when she was hypotensive, which did not improve the urine output. Patient has been in atrial fibrillation. Her blood pressures now have been about 90 mmHg systolic. Potassium was also significantly elevated yesterday up to 6.1, and then it was down to 4.7. The patient was started on bicarb drip yesterday for metabolic acidosis, which should also help with the hyperkalemia. No evidence of ongoing infection. The patient was recently treated by Dr. Pratt for urinary tract infection. The patient has been maintained on nasal cannula and she has had sats of about 95-97 percent. PAST MEDICAL HISTORY: A history of CHF mainly diastolic dysfunction, atrial fibrillation, asthma, COPD, type 2 diabetes, gastroesophageal reflux disease. Hyperlipidemia, hypothyroidism, right lower extremity ulcer, ocular stroke, macular degeneration, degenerative joint disease, multiple recurrent urinary tract infections. Skin cancer on the lip, status post removal. IBS, history of ulcerative colitis. PAST SURGICAL HISTORY: Appendectomy, breast surgery, , cholecystectomy, hysterectomy, tongue lesion removed, lip lesion removed, bilateral breast biopsies which were benign, D and C, colonoscopy, hemorrhoidectomy, cataract surgery. SOCIAL HISTORY: Negative for smoking, drug abuse or alcohol abuse. MEDICATIONS: Medications at home prior to admission included Sinemet, Lipitor, Colace, Drisdol, Advair, vitamin B, Detrol, Effexor, insulin, melatonin, , Tylenol, aspirin, calcium carbonate, insulin and Cordarone. ALLERGIES: ARE MULTIPLE, INCLUDE CEPHALOSPORINS, [QAMARKER]CODEINE, DOXYCYCLINE AND ERYTHROMYCIN, PENICILLIN, BACTRIM, HYDROCHLOROTHIAZIDE, LEVAQUIN, AVELOX, DYAZIDE. REVIEW OF SYSTEMS: As per HPI. Other systems negative. PHYSICAL EXAMINATION: This morning, patient is comfortable, awake. She is not in any acute distress. She is not able to communicate much. She is appears to be short of breath. Blood pressure is 85/69, heart rate 93 per minute. Patient is afebrile. Examination of the heart S1, S2. Examination of the lungs, decreased breath sounds at bases bilaterally. Abdomen is soft, nontender. Examination of lower extremities shows no significant edema. LAB: Show sodium 134, potassium 5.2, chloride 98, CO2 17, BUN 47, serum creatinine 2.7, calcium 8.7, hemoglobin 10.2 g/dL. ASSESSMENT: 1. Acute kidney injury, acute tubular necrosis, oliguric renal failure secondary to hypotension and hypoperfusion. Patient was recently diuresed for diastolic heart failure. She was quite comfortable yesterday with 2 L of nasal cannula. Therefore, we did not diurese her. However since the urine output did not improve and potassium remained elevated, I gave her a dose of Lasix to help with the urine output. So far, patient has not had much urine output. I will check a urinalysis and will obtain an ultrasound of the kidneys as well. If the patient becomes volume overloaded. She will need to be dialyzed. 2. Metabolic acidosis secondary to renal failure. Rule out lactic acidosis. Maintained on IV bicarb which I will continue for now. 3. Diastolic congestive heart failure, status post recent diuresis. 4. Bradycardia, maintained on dopamine, being followed by Cardiology. 5. Hyperkalemia associated with acute kidney injury, currently improved. Control blood sugars. No gastrointestinal bleed noted at this time. PLAN: Check UA and check ultrasound of the kidneys. Continue IV bicarb. Check lactic acid level. Repeat labs this afternoon to follow up on the electrolytes. If the patient becomes volume overloaded, we will need to dialyze her. Thank you for this consultation. We will continue to follow the patient with you during her hospitalization. MMODL / IJN: [id number] /
--- NOTE | 2019-04-16 08:44 | US ---
EXAMINATION TYPE: US kidneys/renal and bladder DATE OF EXAM: 04/16/2019 COMPARISON: CT CLINICAL HISTORY: elevated CR. EXAM MEASUREMENTS: Right Kidney: 9.9 x 4.6 x 4.6 cm Left Kidney: 9.6 x 5.3 x 4.4 cm TEchnically difficult study due to being performed portable on patient in ICU who is unable to jeana ate for exam. Right Kidney: No hydronephrosis or masses seen Left Kidney: No hydronephrosis or masses seen Bladder: not seen, patient has a catheter Bilateral Jets seen: not see, patient has a catheter Incidental note is made of nodular appearing liver There is no evidence for hydronephrosis at this point in time. No nephrolithiasis is seen. No willy s are identified. There is a Smith catheter within the bladder. IMPRESSION: 1. NO ACUTE RENAL ABNORMALITY. 2. PROBABLE CIRRHOSIS OF LIVER.
[2019-04-16] MEDS: NOREPINEPHRINE 4 MG in SODIUM CHLORIDE 0.9% 250 ML IV SCH ×5 (08:45→23:14)
[2019-04-16 08:46] LABS: ABG Base Excess -12.8 mmol/L; ABG HCO3 16 mmol/L (21-25); ABG Oxygen Saturation 92.1 % (94-97); ABG PCO2 48 mmHg (35-45); ABG PO2 76 mmHg (83-108); ABG TCO2 18 mmol/L (19-24); Allen Test Performed? Yes
[2019-04-16 08:50] LABS: ABG PH 7.13 (7.35-7.45)
[2019-04-16] MEDS ORDERED: SODIUM BICARB 8.4% 50 ML SYR (1 MEQ/ML) ONE (08:50)
[2019-04-16] MEDS ORDERED: SODIUM BICARB 8.4% 50 ML SYR (1 MEQ/ML) IV STA (08:53)
[2019-04-16] MEDS: FERROUS SULFATE 325 MG TAB PO SCH (09:00)
[2019-04-16] MEDS: CARBIDOPA-LEVODOPA 25-100 MG 1 EACH TAB PO SCH ×3 (09:00→20:38)
[2019-04-16] MEDS: METOPROLOL TARTRATE 12.5 MG TAB PO SCH ×3 (09:00→20:38)
[2019-04-16] MEDS ORDERED: FUROSEMIDE 10 MG/ML 4 ML VIAL IV SCH (09:00)
[2019-04-16] MEDS: MAGNESIUM OXIDE 400 MG TAB PO SCH ×2 (09:00→16:39)
[2019-04-16] MEDS: VENLAFAXINE HCL ER 75 MG CAP PO SCH (09:00)
[2019-04-16] MEDS: FAMOTIDINE 20 MG TAB PO SCH (10:11)
[2019-04-16] MEDS ORDERED: HYDROmorphone 0.5 MG/0.5 ML SYRINGE IVP STA (10:30)
[2019-04-16] MEDS: ALBUTEROL NEBULIZED 2.5 MG/3 ML INHALATION PRN ×3 (11:11→20:05)
--- NOTE | 2019-04-16 11:51 | P.PN ---
Subjective 74-year-old female was admitted to for bilateral pleural effusion short is a resident secondary to that a possibility of pneumonia is low. Patient is on antibiotics for UTI. Patient heart rate is higher because of which are verapamil dose is being increased patient will be continued on Lasix today. Possibly of discharge to subacute rehabilitation tomorrow. 04/15/2019 Patient became hypotensive, requiring dobutamine drip to secondary to excessive diuretic therapy patient still has mild pleural effusions from heart failure but had respiratory status at this time and diuretic therapy will be discontinued continue with dopamine. She is hyperkalemic because of renal dysfunction. Patient will receive IV insulin for hyperkalemia patient does have leukocytosis which appears to be reactive. Patient complaining of musculoskeletal chest pain initially received morphine which will be switched to very low-dose of Dilaudid because of the renal dysfunction 04/16/2019 Patient is significant volume depleted unfortunately patient received Lasix empiric alleviators she is not urinating patient is anuric. Patient is on 2 pressor support at this time patient is also getting CAT scan of the head that she is confused and this is secondary to severe metabolic causes and a metabolic acidosis. Patient is hyperkalemic. Her Dilaudid will be discontinued patient is presently on BiPAP because of acidosis although this is metabolic acidosis Constitutional: Denied any fatigue denied any fever. Cardio vascular: Complaining of pain in the chest which is Mus[place] skeletal Gastrointestinal denied any nausea vomiting Pulmonary: Denied any shortness of breath cough Neurologic denied any new focal deficits All inpatient medications were reviewed and appropriate changes in these medications as dictated in the interval history and assessment and plan. Objective - Vital Signs Vital signs: Vital Signs Temp 96.0 F L 04/16/19 08:00 Pulse 102 H 04/16/19 11:21 Resp 19 04/16/19 10:00 BP 86/50 04/16/19 10:00 Pulse Ox 98 04/16/19 10:00 Intake & Output 04/15/19 04/16/19 04/16/19 18:59 06:59 18:59 Intake Total 7783.001 0567.355 495.913 Output Total 325 10 0 Balance 817.737 2229.355 495.913 Weight 61.4 kg Intake: IV 830 850 210 .9 330 130 30 Sodium Chloride 0.45% 1, 720 180 000 ml @ 60 mls/hr IV . [id number] LAMBERTO with Sodium Bicarb (1 Meq/ml) 100 ml Rx#:[id number] Sodium Chloride 0.9% 500 500 ml 500 ml @ 999 mls/hr IV .Q31M ONE Rx#:[id number] Intake, IV Titration 277.252 206.355 285.913 Amount DOPamine DRIP 800 mg In 277.252 146.355 116.506 Water For Injection 1 250ml.bag @ 5 MCG/KG/MIN 6.047 mls/hr IV .Q24H LAMBERTO Rx#:[id number] Norepinephrine 4 mg In 169.407 Sodium Chloride 0.9% 250 ml @ 0.05 MCG/KG/MIN 11. 697 mls/hr IV .[id number] LAMBERTO Rx#:[id number] Sodium Chloride 0.45% 1, 60 000 ml @ 60 mls/hr IV . [id number] LAMBERTO with Sodium Bicarb (1 Meq/ml) 100 ml Rx#:[id number] Output: Urine 25 10 0 Emesis 300 Other: Voiding Method Indwelling Catheter Indwelling Catheter Indwelling Catheter - Exam PHYSICAL EXAMINATION: GENERAL: The patient is alert and oriented x3, not in any acute distress. Well developed, well nourished. Does have tremor which appears to be chronic and secondary to Parkinson's HEENT: Pupils are round and equally reacting to light. EOMI. No scleral icterus. No conjunctival pallor. Normocephalic, atraumatic. No pharyngeal erythema. No thyromegaly. CARDIOVASCULAR: S1 and S2 present. No murmurs, rubs, or gallops. PULMONARY: Chest is clear to auscultation, no wheezing or crackles. ABDOMEN: Soft, nontender, nondistended, normoactive bowel sounds. No palpable organomegaly. MUSCULOSKELETAL: No joint swelling or deformity. EXTREMITIES: No cyanosis, clubbing, or pedal edema. NEUROLOGICAL: Gross neurological examination did not reveal any focal deficits. SKIN: No rashes. - Labs CBC & Chem 7: 04/16/19 05:43 04/16/19 05:43 Labs: Abnormal Lab Results - Last 24 Hours (Table) 04/15/19 04/15/19 04/15/19 Range/Units 11:50 14:37 14:41 WBC (3.8-10.6) k/uL RBC (3.80-5.40) m/uL Hgb (11.4-16.0) gm/dL Hct (34.0-46.0) % MCV (80.0-100.0) fL MCH (25.0-35.0) pg RDW (11.5-15.5) % Neutrophils # (Manual) (1.3-7.7) k/uL Lymphocytes # (Manual) (1.0-4.8) k/uL Metamyelocytes # (Man) (0) k/uL Myelocytes # (Manual) (0) k/uL Nucleated RBCs (0-0) /100 WBC Macrocytosis ABG pH (7.35-7.45) ABG pCO2 (35-45) mmHg ABG pO2 (83-108) mmHg ABG HCO3 (21-25) mmol/L ABG Total CO2 (19-24) mmol/L ABG O2 Saturation (94-97) % Sodium 134 L (137-145) mmol/L Potassium 6.0 H (3.5-5.1) mmol/L Carbon Dioxide 17 L (22-30) mmol/L BUN 43 H (7-17) mg/dL Creatinine 2.12 H (0.52-1.04) mg/dL Glucose 166 H (74-99) mg/dL POC Glucose (mg/dL) 139 H 190 H (75-99) mg/dL Plasma Lactic Acid Nam (0.7-2.0) mmol/L 04/15/19 04/15/19 04/15/19 Range/Units 16:30 18:17 18:53 WBC (3.8-10.6) k/uL RBC (3.80-5.40) m/uL Hgb (11.4-16.0) gm/dL Hct (34.0-46.0) % MCV (80.0-100.0) fL MCH (25.0-35.0) pg RDW (11.5-15.5) % Neutrophils # (Manual) (1.3-7.7) k/uL Lymphocytes # (Manual) (1.0-4.8) k/uL Metamyelocytes # (Man) (0) k/uL Myelocytes # (Manual) (0) k/uL Nucleated RBCs (0-0) /100 WBC Macrocytosis ABG pH (7.35-7.45) ABG pCO2 (35-45) mmHg ABG pO2 (83-108) mmHg ABG HCO3 (21-25) mmol/L ABG Total CO2 (19-24) mmol/L ABG O2 Saturation (94-97) % Sodium 133 L (137-145) mmol/L Potassium (3.5-5.1) mmol/L Carbon Dioxide 20 L (22-30) mmol/L BUN 44 H (7-17) mg/dL Creatinine 2.31 H (0.52-1.04) mg/dL Glucose 170 H (74-99) mg/dL POC Glucose (mg/dL) 163 H 186 H (75-99) mg/dL Plasma Lactic Acid Nam (0.7-2.0) mmol/L 04/15/19 04/16/19 04/16/19 Range/Units 20:35 05:43 05:43 WBC 11.2 H (3.8-10.6) k/uL RBC 2.90 L (3.80-5.40) m/uL Hgb 10.2 L (11.4-16.0) gm/dL Hct 31.4 L (34.0-46.0) % MCV 108.1 H (80.0-100.0) fL MCH 35.2 H (25.0-35.0) pg RDW 16.5 H (11.5-15.5) % Neutrophils # (Manual) 9.20 H (1.3-7.7) k/uL Lymphocytes # (Manual) 0.34 L (1.0-4.8) k/uL Metamyelocytes # (Man) 0.56 H (0) k/uL Myelocytes # (Manual) 0.11 H (0) k/uL Nucleated RBCs 1 H (0-0) /100 WBC Macrocytosis Marked A ABG pH (7.35-7.45) ABG pCO2 (35-45) mmHg ABG pO2 (83-108) mmHg ABG HCO3 (21-25) mmol/L ABG Total CO2 (19-24) mmol/L ABG O2 Saturation (94-97) % Sodium 134 L (137-145) mmol/L Potassium 5.2 H (3.5-5.1) mmol/L Carbon Dioxide 17 L (22-30) mmol/L BUN 47 H (7-17) mg/dL Creatinine 2.70 H (0.52-1.04) mg/dL Glucose 106 H (74-99) mg/dL POC Glucose (mg/dL) 153 H (75-99) mg/dL Plasma Lactic Acid Nam (0.7-2.0) mmol/L 04/16/19 04/16/19 04/16/19 Range/Units 06:52 08:12 08:37 WBC (3.8-10.6) k/uL RBC (3.80-5.40) m/uL Hgb (11.4-16.0) gm/dL Hct (34.0-46.0) % MCV (80.0-100.0) fL MCH (25.0-35.0) pg RDW (11.5-15.5) % Neutrophils # (Manual) (1.3-7.7) k/uL Lymphocytes # (Manual) (1.0-4.8) k/uL Metamyelocytes # (Man) (0) k/uL Myelocytes # (Manual) (0) k/uL Nucleated RBCs (0-0) /100 WBC Macrocytosis ABG pH 7.13 L* (7.35-7.45) ABG pCO2 48 H (35-45) mmHg ABG pO2 76 L (83-108) mmHg ABG HCO3 16 L (21-25) mmol/L ABG Total CO2 18 L (19-24) mmol/L ABG O2 Saturation 92.1 L (94-97) % Sodium (137-145) mmol/L Potassium (3.5-5.1) mmol/L Carbon Dioxide (22-30) mmol/L BUN (7-17) mg/dL Creatinine (0.52-1.04) mg/dL Glucose (74-99) mg/dL POC Glucose (mg/dL) 104 H (75-99) mg/dL Plasma Lactic Acid Nam 8.1 H* (0.7-2.0) mmol/L Microbiology - Last 24 Hours (Table) 04/13/19 11:17 Blood Culture - Preliminary Blood No Growth after 48 hours Assessment and Plan Plan: --Hypovolemic shock secondary to excessive diuretic therapy which will be discontinued and patient will be continued on dobutamine patient is presently on pressor support as well. -Anion gap and non-anion gap metabolic acidosis secondary to lactic acidosis patient will be continued on IV fluids patient is presently receiving D5 water with 3 Amps of bicarbonate. -Hyperkalemia secondary to acute renal failure Acute renal failure secondary to hypovolemia from excessive diuretic therapy -Chest pain musculoskeletal nature -Low possibility of pneumonia, patient completed antibiotic therapy for urinary tract infection and medics were discontinued -Moderate pulmonary hypertension -COPD with minimal exacerbation continue with inhaled steroids. -Atrial fibrillation presently rate controlled sinus rhythm: Continue her home regimen, patient is not on antiplatelet correlation because of her fall risk and further management regarding this as per cardiology -Type 2 diabetes mellitus patient will be resumed on her home regimen titrate the blood sugars recommending depending on the blood sugars readings here -Gastroesophageal reflux disease -Hypertension hyperlipidemia Hypothyroidism -Parkinson's patient patient was resumed on parkinsonian medications
--- NOTE | 2019-04-16 11:55 | P.PN ---
Subjective Progress Note Date: 04/16/19 Principal diagnosis: Acute exacerbation of diastolic congestive heart failure and bilateral pleural effusions. This is a very pleasant 74-year-old female patient who follows with Dr. Odonnell as her primary care physician. She has a history of chronic atrial fibrillation on chronic anticoagulation, chronic congestive heart failure, COPD, diabetes mellitus type 2, hypertension, hyperlipidemia, chronic kidney disease, hypothyroidism, Parkinson's disease, previous stroke with left eye blindness, DJD, gait dysfunction, ulcerative colitis, recurrent urinary tract infections with previous history of vancomycin-resistant enterococcus UTI. She had recently been discharged from here for urinary tract infection She has been residing at an extended care facility the past 8 months. She was brought in today with shortness of breath, right-sided chest pain. CT angiogram was perfo rmed and showed a sizable bilateral pleural effusions and consolidations consistent with congestive heart failure. No central pulmonary embolism was noted. There is hepatic cirrhosis. She is seen today in consultation in the observation unit. Currently sitting up at the bedside. Awake and alert in no acute distress. Maintaining O2 saturations up to 100% on 2 L/m per nasal cannula. She's afebrile. Hemodynamically stable. White count 4.4. Hemoglobin 10.3. Platelet count 110,000. INR 1.2. Creatinine 0.70. Troponin negative. ProBNP 7270. There is bilateral lower extremity edema. Patient was reevaluated today on 04/14/2019, feeling better, breathing easier, however she has some right-sided chest wall pain which is reproducible, and she has some tenderness over the right anterior chest wall in the right parasternal area. Patient states that her shortness of breath is better, her chest x-ray continues to show congestive heart failure, but not much pleural effusions as noted on CT of the chest and ultrasound of the chest done yesterday. Patient remains on diuretics, her electrolytes are normal today, BUN is 28 creatinine is 0.79. Furosemide remains at 40 mg IV push every 8 hours. Considering the improvement clinically and considering the chest x-ray findings, no plans for thoracentesis. Reevaluated today on 04/15/2019, patient was transferred to the ICU last night mos tly because of profound bradycardia, hypotension, requiring placement on dopamine, she is presently on 14 mcg/kg/m, and she was given few fluid boluses yesterday. This morning, the patient seems to be significantly improved, she is hemodynamically stable but requiring dopamine, her urine output is poor, her renal functioning is a bit worse, hence will cut down the Lasix dose from 40 mg IV push every 8 hours to 40 mg daily. Chest x-ray shows some interstitial edema slightly worse compared to yesterday, and that is because of her fluid boluses, patient will receive a dose of Lasix this morning. Again based on the chest x- ray findings, no need for thoracentesis at this point. Patient is complaining of right chest wall pain, has been on Toradol, but because of her renal function, Toradol has to be placed on hold. Potassium today is 5.5 BUN is 40 creatinine 2.16, her urine output is down to 25 ML per hour this morning. Her bradycardia responded well to dopamine and she is presently in atrial fibrillation with fairly controlled ventricular rate. Patient was reevaluated today on 04/16/2019, patient is encephalopathic, confused, metabolically acidotic, she also has some component of respiratory acidosis based on her ABG, switch from high-dose dopamine to norepinephrine, and she is p resently on 20 mcg/m of norepinephrine, and she is on 2.5 mcg/kg/m of dopamine.patient is noted to be obtunded, hence ABG was done,it showed a pO2 of 76 pCO2 of 48 pH of 7.13, she is already on a bicarb drip, given 1 amp of bicarb, and recommended placing the patient on BiPAP. I have also recommended a CT of the brain to be done without contrast. Updated her daughter Effie on her condition, and also touch bases on CODE STATUS and possibly considering comfort care measures. She will discuss her condition with other family members/some. Her renal functioning is a bit worse today, BUN is 47 creatinine is 2.7, and it was 2.31 yesterday.a is being followed by nephrology. And bicarb drip remains on board.urine output is extremely poor, patient is oliguric.hence dopamine was cut down to a renal dose, and norepinephrine was started to improve her hypotension. And it seems to be working so far.lactic acid this morning is 8.1.it is mostly related to hypotension and hypoperfusion. Objective - Vital Signs Vital signs: Vital Signs Temp 96.0 F L 08/04/19 08:00 Pulse 102 H 08/04/19 11:21 Resp 19 04/16/19 10:00 BP 86/50 04/16/19 10:00 Pulse Ox 98 04/16/19 10:00 Intake & Output 04/15/19 04/16/19 04/16/19 18:59 06:59 18:59 Intake Total 3722.152 2914.355 495.913 Output Total 325 10 0 Balance 722.490 3413.355 495.913 Weight 61.4 kg Intake: IV 830 850 210 .9 330 130 30 Sodium Chloride 0.45% 1, 720 180 000 ml @ 60 mls/hr IV . [id number] L[facility]ERTO with Sodium Bicarb (1 Meq/ml) 100 ml Rx#:[id number] Sodium Chloride 0.9% 500 500 ml 500 ml @ 999 mls/hr IV .Q31M ONE Rx#:[id number] Intake, IV Titration 277.252 206.355 285.913 Amount DOPamine DRIP 800 mg In 277.252 146.355 116.506 Water For Injection 1 250ml.bag @ 5 MCG/KG/MIN 6.047 mls/hr IV .Q24H [facility]O Rx#:[id number] Norepinephrine 4 mg In 169.407 Sodium Chloride 0.9% 250 ml @ 0.05 MCG/KG/MIN 11. 697 mls/hr IV .[id number] L[facility]O Rx#:[id number] Sodium Chloride 0.45% 1, 60 000 ml @ 60 mls/hr IV . [id number] L[facility]O with Sodium Bicarb (1 Meq/ml) 100 ml Rx#:[id number] Output: Urine 25 10 0 Emesis 300 Other: Voiding Method Indwelling Catheter Indwelling Catheter Indwelling Catheter - Exam Physical Exam: 74-year-old female, obtunded, does not follow any instructions. Noted to be a bit tachypneic. Head: Atraumatic, normocephalic. HEENT:[Neck is supple.] [No neck masses.] [No thyromegaly.] [No JVD.] Dry mucous membranes noted. PERRLA, EOMI, no icterus. Chest: [Symmetrical chest expansion, crackles at the bases, no rhonchi and no wheezes.] Cardiac Exam: [Irregular irregular rhythm. Normal S1 and S2, no S3 gallop, no murmur.] Abdomen: [Soft, nontender, no megaly, no rebound, no guarding, normal bowel sounds.] Extremities: [No clubbing, trace of bipedal edema, no cyanosis.] Neurological Exam: [obtunded, does not follow any instructions.there is chronic hemiparesis of the left upper extremity noted supposedly chronic. Psychiatric: obtunded, blunt affect. Poor mental status. Skin: No rashes. - Labs CBC & Chem 7: 04/16/19 05:43 04/16/19 05:43 Labs: Abnormal Lab Results - Last 24 Hours (Table) 04/15/19 04/15/19 04/15/19 Range/Units 11:50 14:37 14:41 WBC (3.8-10.6) k/uL RBC (3.80-5.40) m/uL Hgb (11.4-16.0) gm/dL Hct (34.0-46.0) % MCV (80.0-100.0) fL MCH (25.0-35.0) pg RDW (11.5-15.5) % Neutrophils # (Manual) (1.3-7.7) k/uL Lymphocytes # (Manual) (1.0-4.8) k/uL Metamyelocytes # (Man) (0) k/uL Myelocytes # (Manual) (0) k/uL Nucleated RBCs (0-0) /100 WBC Macrocytosis ABG pH (7.35-7.45) ABG pCO2 (35-45) mmHg ABG pO2 (83-108) mmHg ABG HCO3 (21-25) mmol/L ABG Total CO2 (19-24) mmol/L ABG O2 Saturation (94-97) % Sodium 134 L (137-145) mmol/L Potassium 6.0 H (3.5-5.1) mmol/L Carbon Dioxide 17 L (22-30) mmol/L BUN 43 H (7-17) mg/dL Creatinine 2.12 H (0.52-1.04) mg/dL Glucose 166 H (74-99) mg/dL POC Glucose (mg/dL) 139 H 190 H (75-99) mg/dL Plasma Lactic Acid Nam (0.7-2.0) mmol/L 04/15/19 04/15/19 04/15/19 Range/Units 16:30 18:17 18:53 WBC (3.8-10.6) k/uL RBC (3.80-5.40) m/uL Hgb (11.4-16.0) gm/dL Hct (34.0-46.0) % MCV (80.0-100.0) fL MCH (25.0-35.0) pg RDW (11.5-15.5) % Neutrophils # (Manual) (1.3-7.7) k/uL Lymphocytes # (Manual) (1.0-4.8) k/uL Metamyelocytes # (Man) (0) k/uL Myelocytes # (Manual) (0) k/uL Nucleated RBCs (0-0) /100 WBC Macrocytosis ABG pH (7.35-7.45) ABG pCO2 (35-45) mmHg ABG pO2 (83-108) mmHg ABG HCO3 (21-25) mmol/L ABG Total CO2 (19-24) mmol/L ABG O2 Saturation (94-97) % Sodium 133 L (137-145) mmol/L Potassium (3.5-5.1) mmol/L Carbon Dioxide 20 L (22-30) mmol/L BUN 44 H (7-17) mg/dL Creatinine 2.31 H (0.52-1.04) mg/dL Glucose 170 H (74-99) mg/dL POC Glucose (mg/dL) 163 H 186 H (75-99) mg/dL Plasma Lactic Acid Nam (0.7-2.0) mmol/L 04/15/19 04/16/19 04/16/19 Range/Units 20:35 05:43 05:43 WBC 11.2 H (3.8-10.6) k/uL RBC 2.90 L (3.80-5.40) m/uL Hgb 10.2 L (11.4-16.0) gm/dL Hct 31.4 L (34.0-46.0) % MCV 108.1 H (80.0-100.0) fL MCH 35.2 H (25.0-35.0) pg RDW 16.5 H (11.5-15.5) % Neutrophils # (Manual) 9.20 H (1.3-7.7) k/uL Lymphocytes # (Manual) 0.34 L (1.0-4.8) k/uL Metamyelocytes # (Man) 0.56 H (0) k/uL Myelocytes # (Manual) 0.11 H (0) k/uL Nucleated RBCs 1 H (0-0) /100 WBC Macrocytosis Marked A ABG pH (7.35-7.45) ABG pCO2 (35-45) mmHg ABG pO2 (83-108) mmHg ABG HCO3 (21-25) mmol/L ABG Total CO2 (19-24) mmol/L ABG O2 Saturation (94-97) % Sodium 134 L (137-145) mmol/L Potassium 5.2 H (3.5-5.1) mmol/L Carbon Dioxide 17 L (22-30) mmol/L BUN 47 H (7-17) mg/dL Creatinine 2.70 H (0.52-1.04) mg/dL Glucose 106 H (74-99) mg/dL POC Glucose (mg/dL) 153 H (75-99) mg/dL Plasma Lactic Acid Nam (0.7-2.0) mmol/L 04/16/19 04/16/19 04/16/19 Range/Units 06:52 08:12 08:37 WBC (3.8-10.6) k/uL RBC (3.80-5.40) m/uL Hgb (11.4-16.0) gm/dL Hct (34.0-46.0) % MCV (80.0-100.0) fL MCH (25.0-35.0) pg RDW (11.5-15.5) % Neutrophils # (Manual) (1.3-7.7) k/uL Lymphocytes # (Manual) (1.0-4.8) k/uL Metamyelocytes # (Man) (0) k/uL Myelocytes # (Manual) (0) k/uL Nucleated RBCs (0-0) /100 WBC Macrocytosis ABG pH 7.13 L* (7.35-7.45) ABG pCO2 48 H (35-45) mmHg ABG pO2 76 L (83-108) mmHg ABG HCO3 16 L (21-25) mmol/L ABG Total CO2 18 L (19-24) mmol/L ABG O2 Saturation 92.1 L (94-97) % Sodium (137-145) mmol/L Potassium (3.5-5.1) mmol/L Carbon Dioxide (22-30) mmol/L BUN (7-17) mg/dL Creatinine (0.52-1.04) mg/dL Glucose (74-99) mg/dL POC Glucose (mg/dL) 104 H (75-99) mg/dL Plasma Lactic Acid Nam 8.1 H* (0.7-2.0) mmol/L Microbiology - Last 24 Hours (Table) 04/13/19 11:17 Blood Culture - Preliminary Blood No Growth after 48 hours Assessment and Plan Assessment: Impression: 1 acute hypoxic respiratory failure secondary to acute exacerbation of diastolic congestive heart failure. With bilateral pleural effusions, improved with diuretics initially, however because of hypotension, and worsening renal status, diuretics are presently on hold. 2 chronic atrial fibrillation, poor tolerance to anticoagulation therapy. 3 history of chronic and recurrent urinary tract infections, 4 type 2 diabetes 5 COPD 6 hypothyroidism 7 previous CVA and left eye blindness 8 history of ulcerative colitis 9 Acute kidney injury suspect secondary to hypotension and acute tubular necrosis. Recommendation: patient was given an amp of bicarb, placed on BiPAP, ordered CT of the brain, discussed her condition with family over the phone, patient remains DO NOT RESUSCITATE CODE STATUS, may have to consider comfort care measures, switched dopamine to norepinephrine, and that will be titrated to maintain a mean arterial pressure of 65, however dopamine was cut down to her renal perfusion dose at 2.5 mcg/kg/m. Family seems to be inclined to possibly consider comfort care measures. We'll continue to monitor and follow the ICU. Prognosis is extremely poor. Time with Patient: Less than 30
--- NOTE | 2019-04-16 12:10 | P.PN ---
Subjective Progress Note Date: 04/16/19 Principal diagnosis: Paroxysmal atrial fibrillation The patient is a 74-year-old female who is currently admitted her CHF exacerbation and A. fib with RVR. She was transferred to the ICU for bradycardia and hypertension. She is currently being treated with dopamine to help maintain heart rate and blood pressure. Over the last 24 hours her creatinine has worsened, therefore nephrology was consulted. She has also been placed on norepinephrine to maintain blood pressure. Her mental status has worsened and she is now on BiPAP. GENERAL: Confused. Currently on BiPAP. NECK: Supple without JVD or thyromegaly. LUNGS: Breath sounds diminished. Respiration equal and unlabored. No wheezes, rales or rhonchi. HEART: Heart rate is irregular. Systolic murmur. No rubs or gallops. S1 and S2 heard. EXTREMITIES: Normal range of motion, no edema. No clubbing or cyanosis. Peripheral pulses intact and strong. Echocardiogram shows preserved LV function with moderate M before meals, moderate mitral stenosis, moderate to severe tricuspid regurgitation, and severe pulmonary hypertension Labs: WBC 11.2, hemoglobin 10.2 hematocrit 31.4, platelet 168, sodium 134, potassium 5.2, BUN 47, creatinine 2.70, lactic acid 8.1, ABGs today showed metabolic acidosis Assessment: #1 persistent atrial fibrillation, rate controlled, currently on dopamine #2 acute on chronic diastolic heart failure #3 acute kidney injury #4 acute respiratory failure Plan: Continue dopamine as directed by coremaking supervisor. We will restart metoprolol once weaned off dopamine. Rate control for atrial fibrillation, recommend anticoagulation. Further recommendations to follow Objective - Vital Signs Vital signs: Vital Signs Temp 96.0 F L 04/16/19 08:00 Pulse 102 H 04/16/19 11:21 Resp 19 04/16/19 10:00 BP 86/50 04/16/19 10:00 Pulse Ox 98 04/16/19 10:00 Intake & Output 04/15/19 04/16/19 04/16/19 18:59 06:59 18:59 Intake Total 7502.549 0989.355 495.913 Output Total 325 10 0 Balance 831.159 9161.355 495.913 Weight 61.4 kg Intake: IV 830 850 210 .9 330 130 30 Sodium Chloride 0.45% 1, 720 180 000 ml @ 60 mls/hr IV . [id number] [facility] with Sodium Bicarb (1 Meq/ml) 100 ml Rx#:[id number] Sodium Chloride 0.9% 500 500 ml 500 ml @ 999 mls/hr IV .Q31M ONE Rx#:[id number] Intake, IV Titration 277.252 206.355 285.913 Amount DOPamine DRIP 800 mg In 277.252 146.355 116.506 Water For Injection 1 250ml.bag @ 5 MCG/KG/MIN 6.047 mls/hr IV .Q24H [facility] Rx#:[id number] Norepinephrine 4 mg In 169.407 Sodium Chloride 0.9% 250 ml @ 0.05 MCG/KG/MIN 11. 697 mls/hr IV .[id number] L[facility]O Rx#:[id number] Sodium Chloride 0.45% 1, 60 000 ml @ 60 mls/hr IV . [id number] [facility] with Sodium Bicarb (1 Meq/ml) 100 ml Rx#:[id number] Output: Urine 25 10 0 Emesis 300 Other: Voiding Method Indwelling Catheter Indwelling Catheter Indwelling Catheter - Labs CBC & Chem 7: 04/16/19 05:43 04/16/19 05:43 Labs: Abnormal Lab Results - Last 24 Hours (Table) 04/15/19 04/15/19 04/15/19 Range/Units 14:37 14:41 16:30 WBC (3.8-10.6) k/uL RBC (3.80-5.40) m/uL Hgb (11.4-16.0) gm/dL Hct (34.0-46.0) % MCV (80.0-100.0) fL MCH (25.0-35.0) pg RDW (11.5-15.5) % Neutrophils # (Manual) (1.3-7.7) k/uL Lymphocytes # (Manual) (1.0-4.8) k/uL Metamyelocytes # (Man) (0) k/uL Myelocytes # (Manual) (0) k/uL Nucleated RBCs (0-0) /100 WBC Macrocytosis ABG pH (7.35-7.45) ABG pCO2 (35-45) mmHg ABG pO2 (83-108) mmHg ABG HCO3 (21-25) mmol/L ABG Total CO2 (19-24) mmol/L ABG O2 Saturation (94-97) % Sodium 134 L (137-145) mmol/L Potassium 6.0 H (3.5-5.1) mmol/L Carbon Dioxide 17 L (22-30) mmol/L BUN 43 H (7-17) mg/dL Creatinine 2.12 H (0.52-1.04) mg/dL Glucose 166 H (74-99) mg/dL POC Glucose (mg/dL) 190 H 163 H (75-99) mg/dL Plasma Lactic Acid Nam (0.7-2.0) mmol/L 04/15/19 04/15/19 04/15/19 Range/Units 18:17 18:53 20:35 WBC (3.8-10.6) k/uL RBC (3.80-5.40) m/uL Hgb (11.4-16.0) gm/dL Hct (34.0-46.0) % MCV (80.0-100.0) fL MCH (25.0-35.0) pg RDW (11.5-15.5) % Neutrophils # (Manual) (1.3-7.7) k/uL Lymphocytes # (Manual) (1.0-4.8) k/uL Metamyelocytes # (Man) (0) k/uL Myelocytes # (Manual) (0) k/uL Nucleated RBCs (0-0) /100 WBC Macrocytosis ABG pH (7.35-7.45) ABG pCO2 (35-45) mmHg ABG pO2 (83-108) mmHg ABG HCO3 (21-25) mmol/L ABG Total CO2 (19-24) mmol/L ABG O2 Saturation (94-97) % Sodium 133 L (137-145) mmol/L Potassium (3.5-5.1) mmol/L Carbon Dioxide 20 L (22-30) mmol/L BUN 44 H (7-17) mg/dL Creatinine 2.31 H (0.52-1.04) mg/dL Glucose 170 H (74-99) mg/dL POC Glucose (mg/dL) 186 H 153 H (75-99) mg/dL Plasma Lactic Acid Nam (0.7-2.0) mmol/L 04/16/19 04/16/19 04/16/19 Range/Units 05:43 05:43 06:52 WBC 11.2 H (3.8-10.6) k/uL RBC 2.90 L (3.80-5.40) m/uL Hgb 10.2 L (11.4-16.0) gm/dL Hct 31.4 L (34.0-46.0) % MCV 108.1 H (80.0-100.0) fL MCH 35.2 H (25.0-35.0) pg RDW 16.5 H (11.5-15.5) % Neutrophils # (Manual) 9.20 H (1.3-7.7) k/uL Lymphocytes # (Manual) 0.34 L (1.0-4.8) k/uL Metamyelocytes # (Man) 0.56 H (0) k/uL Myelocytes # (Manual) 0.11 H (0) k/uL Nucleated RBCs 1 H (0-0) /100 WBC Macrocytosis Marked A ABG pH (7.35-7.45) ABG pCO2 (35-45) mmHg ABG pO2 (83-108) mmHg ABG HCO3 (21-25) mmol/L ABG Total CO2 (19-24) mmol/L ABG O2 Saturation (94-97) % Sodium 134 L (137-145) mmol/L Potassium 5.2 H (3.5-5.1) mmol/L Carbon Dioxide 17 L (22-30) mmol/L BUN 47 H (7-17) mg/dL Creatinine 2.70 H (0.52-1.04) mg/dL Glucose 106 H (74-99) mg/dL POC Glucose (mg/dL) 104 H (75-99) mg/dL Plasma Lactic Acid Nam (0.7-2.0) mmol/L 04/16/19 04/16/19 Range/Units 08:12 08:37 WBC (3.8-10.6) k/uL RBC (3.80-5.40) m/uL Hgb (11.4-16.0) gm/dL Hct (34.0-46.0) % MCV (80.0-100.0) fL MCH (25.0-35.0) pg RDW (11.5-15.5) % Neutrophils # (Manual) (1.3-7.7) k/uL Lymphocytes # (Manual) (1.0-4.8) k/uL Metamyelocytes # (Man) (0) k/uL Myelocytes # (Manual) (0) k/uL Nucleated RBCs (0-0) /100 WBC Macrocytosis ABG pH 7.13 L* (7.35-7.45) ABG pCO2 48 H (35-45) mmHg ABG pO2 76 L (83-108) mmHg ABG HCO3 16 L (21-25) mmol/L ABG Total CO2 18 L (19-24) mmol/L ABG O2 Saturation 92.1 L (94-97) % Sodium (137-145) mmol/L Potassium (3.5-5.1) mmol/L Carbon Dioxide (22-30) mmol/L BUN (7-17) mg/dL Creatinine (0.52-1.04) mg/dL Glucose (74-99) mg/dL POC Glucose (mg/dL) (75-99) mg/dL Plasma Lactic Acid Nam 8.1 H* (0.7-2.0) mmol/L Microbiology - Last 24 Hours (Table) 04/13/19 11:17 Blood Culture - Preliminary Blood No Growth after 48 hours
[2019-04-16 12:29] LABS: Glucose,Whole Blood 103 mg/dL (75-99)
--- NOTE | 2019-04-16 12:59 | CT ---
EXAMINATION TYPE: CT brain wo con DATE OF EXAM: 04/16/2019 COMPARISON: Previous study dated 09/26/2018 HISTORY: Altered mental status CT DLP: 1145.4 mGycm Automated exposure control for dose reduction was used. FINDINGS: There are mild generalized changes of sulcal prominence and ventriculomegaly, compatible with atrophi c change. There is diffuse periventricular white matter lucency, compatible small vessel ischemic alona nge. There is no acute focal lesion, mass effect or midline shift identified. I do not see evidence o f intracranial blood. Visualized portions of the paranasal sinuses and mastoids are clear. The bony calvarium is intact. IMPRESSION: 1. NO ACUTE INTRACRANIAL ABNORMALITY. 2. DEGENERATIVE CHANGE.
[2019-04-16] MEDS: THIAMINE 100 MG TAB PO SCH (13:10)
[2019-04-16] MEDS: SODIUM CHLORIDE 0.45% 1,000 ML with SODIUM BICARB (1 MEQ/ML) 100 ML IV SCH ×2 (13:11)
[2019-04-16] MEDS: ASPIRIN 81 MG PO SCH (16:39)
[2019-04-16] MEDS: CALCIUM CARB-VIT D 500MG-200UN 1 EACH TAB PO SCH (16:39)
[2019-04-16 16:58] LABS: Glucose,Whole Blood 72 mg/dL (75-99)
[2019-04-16] MEDS: HYDROmorphone 0.5 MG/0.5 ML SYRINGE IVP PRN ×2 (17:25→22:33)
[2019-04-16 20:30] LABS: Glucose,Whole Blood 34 mg/dL (75-99)
[2019-04-16] MEDS: ATORVASTATIN 10 MG TAB PO SCH (20:38)
[2019-04-16] MEDS: traZODone HCL 50 MG TAB PO SCH (20:38)
[2019-04-16] MEDS: OXYBUTYNIN XL 5 MG TAB.ER.24 PO SCH (20:38)
[2019-04-16] MEDS ORDERED: DEXTROSE 10 % IN WATER 250 ML IV ONE ×2 (20:43→23:39)
[2019-04-16 21:01] LABS: Glucose,Whole Blood 98 mg/dL (75-99)
[2019-04-16 23:39] LABS: Glucose,Whole Blood 61 mg/dL (75-99)
[2019-04-17 00:17] LABS: Glucose,Whole Blood 107 mg/dL (75-99)
[2019-04-17] MEDS: NOREPINEPHRINE 4 MG in SODIUM CHLORIDE 0.9% 250 ML IV SCH ×3 (01:19→05:18)
[2019-04-17 02:07] LABS: Glucose,Whole Blood 87 mg/dL (75-99)
[2019-04-17 03:31] LABS: Glucose,Whole Blood 61 mg/dL (75-99)
[2019-04-17] MEDS ORDERED: DEXTROSE 10 % IN WATER 250 ML IV ONE (03:35)
[2019-04-17 04:00] LABS: Glucose,Whole Blood 125 mg/dL (75-99)
[2019-04-17 04:15] VITALS: TEMP 97
[2019-04-17 04:39] LABS: Glucose,Whole Blood 90 mg/dL (75-99)
[2019-04-17 04:45] LABS: Anisocytosis Slight; HCT 28.4 % (34.0-46.0); Hypochromasia Marked; MCH 35.4 pg (25.0-35.0); MCHC 30.3 g/dL (31.0-37.0); Macrocytosis Marked; Mean Platelet Volume 8.5; Platelet Count 147 k/uL (150-450); RBC 2.43 m/uL (3.80-5.40); RDW 16.1 % (11.5-15.5)
[2019-04-17 04:52] LABS: HGB 8.6 gm/dL (11.4-16.0); MCV 116.9 fL (80.0-100.0)
[2019-04-17 05:16] LABS: Calcium 7.9 mg/dL (8.4-10.2); Potassium 5.7 mmol/L (3.5-5.1)
[2019-04-17] MEDS: LEVOTHYROXINE 125 MCG TAB PO SCH (05:18)
[2019-04-17 05:23] LABS: Band Neutrophils % 26 %; Lymphocytes # (M) 1.54 k/uL (1.0-4.8); Metamyelocytes # (M) 0.51 k/uL (0); Metamyelocytes % 3 %; Monocytes # (M) 2.57 k/uL (0-1.0); Neutrophils % (M) 47 %; Nucleated Red Blood Cells 11 /100 WBC (0-0); Total Cells Counted 100; Toxic Vacuolation Present; WBC 17.1 k/uL (3.8-10.6)
[2019-04-17 05:24] LABS: Polychromasia Present
[2019-04-17] MEDS ORDERED: ATROPINE OPHTH SOLN 1% 5ML BTL SUBLINGUAL PRN (05:36)
[2019-04-17] MEDS ORDERED: ARTIFICIAL TEARS-HYPROMELLOSE DROPS 15 ML BTL BOTH EYES PRN (05:36)
[2019-04-17] MEDS: HYDROmorphone 0.5 MG/0.5 ML SYRINGE IVP PRN (05:42)
[2019-04-17] MEDS ORDERED: SCOPOLAMINE 1.5MG/72HR PATCH TRANSDERM SCH (05:45)
[2019-04-17 06:14] VITALS: BP 72/47; PULSE 46; RESP 12
== END 2019-04-17 10:00 | disposition home or self-care (01) | DRG 291 ==
LOC: EC 09:15 → 1SOBS 13:24 → OBSVTOIN 04-14 10:36 → 3SCARD 04-14 12:04 → 2SICU 04-15 01:31
PROVIDERS: ADMIT Internal Medicine; ATTEND Internal Medicine
PROC: 5A09357 Assistance with Respiratory Ventilation, Less than 24 Consecutive Hours, Continuous Positive Airway Pressure (ICD-10-PCS; principal; 2019-04-16)
DX: I11.0 Hypertensive heart disease with heart failure (principal); G92 Toxic encephalopathy; J96.01 Acute respiratory failure with hypoxia; N17.0 Acute kidney failure with tubular necrosis; E87.2 Acidosis; I45.2 Bifascicular block; N39.0 Urinary tract infection, site not specified; R18.8 Other ascites; E87.1 Hypo-osmolality and hyponatremia; I50.33 Acute on chronic diastolic (congestive) heart failure; I95.9 Hypotension, unspecified; E86.1 Hypovolemia; E86.9 Volume depletion, unspecified; E11.22 Type 2 diabetes mellitus with diabetic chronic kidney disease; E11.42 Type 2 diabetes mellitus with diabetic polyneuropathy; G20 Parkinson's disease; I27.20 Pulmonary hypertension, unspecified; J44.9 Chronic obstructive pulmonary disease, unspecified; E87.5 Hyperkalemia; I08.1 Rheumatic disorders of both mitral and tricuspid valves; B96.4 Proteus (mirabilis) (morganii) as the cause of diseases classified elsewhere; D64.9 Anemia, unspecified; I69.998 Other sequelae following unspecified cerebrovascular disease; I45.10 Unspecified right bundle-branch block; I48.2 Chronic atrial fibrillation; K74.60 Unspecified cirrhosis of liver; R00.1 Bradycardia, unspecified; D86.9 Sarcoidosis, unspecified; E03.9 Hypothyroidism, unspecified; E78.5 Hyperlipidemia, unspecified; F41.9 Anxiety disorder, unspecified; H35.30 Unspecified macular degeneration; H54.8 Legal blindness, as defined in USA; I25.10 Atherosclerotic heart disease of native coronary artery without angina pectoris; K21.9 Gastro-esophageal reflux disease without esophagitis; K58.9 Irritable bowel syndrome, unspecified; M19.90 Unspecified osteoarthritis, unspecified site; M25.511 Pain in right shoulder; R26.9 Unspecified abnormalities of gait and mobility; R07.89 Other chest pain; R32 Unspecified urinary incontinence; K42.9 Umbilical hernia without obstruction or gangrene; T50.2X5A Adverse effect of carbonic-anhydrase inhibitors, benzothiadiazides and other diuretics, initial encounter; T40.2X5A Adverse effect of other opioids, initial encounter; Z79.4 Long term (current) use of insulin; Z79.82 Long term (current) use of aspirin; Z79.890 Hormone replacement therapy; Z79.899 Other long term (current) drug therapy; Z87.440 Personal history of urinary (tract) infections; Z85.828 Personal history of other malignant neoplasm of skin; Z90.710 Acquired absence of both cervix and uterus; Z88.1 Allergy status to other antibiotic agents; Z88.5 Allergy status to narcotic agent; Z88.0 Allergy status to penicillin; Z88.2 Allergy status to sulfonamides; Z90.49 Acquired absence of other specified parts of digestive tract; Z98.42 Cataract extraction status, left eye; Z98.41 Cataract extraction status, right eye; Z96.1 Presence of intraocular lens; Z99.81 Dependence on supplemental oxygen; Z80.1 Family history of malignant neoplasm of trachea, bronchus and lung; Z80.42 Family history of malignant neoplasm of prostate
CPT/HCPCS: 36415; 36600; 70450; 71045; 71275; 76604; 76770; 80048; 80051; 80053; 82550; 82805; 83605; 83735; 83880; 84484; 85025; 85379; 85610; 85730; 87040; 93005; 93306; 94640; 94660; 94760; 99285